=== PATIENT | female | born 1985 | race Caucasian/White ===

== ENCOUNTER 2017-10-07 18:08 | Emergency (ER) | payer BC, MEDICAID ==
[2017-10-07 18:20] VITALS: PULSE 82; RESP 18
[2017-10-07] MEDS ORDERED: SODIUM CHLORIDE 0.9% 1,000 ML IV ONE (18:27)
--- NOTE | 2017-10-07 18:38 | ED ---
General Adult HPI - General Chief complaint: Overdose Stated complaint: accidental injection Time Seen by Provider: 10/07/17 18:09 Source: patient, EMS, RN notes reviewed Mode of arrival: EMS Limitations: no limitations - History of Present Illness Initial comments: This a 32-year-old female presents emergency Department with a complaint of accidental injection. 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 Patient states that she has a makeshift sharps box and states that she accidentally poked herself and she believes that it was hydromorphone. Patient states that immediately after poking her right home she started feeling very dizzy, lightheaded. She states that she try to inject her right hand with Narcan that she has. She states that she has all her reversal agents at home. Patient states she is up-to-date on her tetanus. 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 Patient states that she was given Narcan by EMS states that she feels much better. She denies any chest pain, shortness breath, headache or dizziness - Related Data Home Medications Medication Instructions Recorded Confirmed Citalopram Hydrobromide [CeleXA] 40 mg PO DAILY 10/06/14 11/12/15 clonazePAM [KlonoPIN] 1 mg PO BID 10/06/14 11/12/15 traZODone HCL [Desyrel] 100 mg PO DAILY 10/06/14 11/12/15 Prazosin [Minipress] 2 mg PO DAILY 11/12/15 11/12/15 Previous Rx's Medication Instructions Recorded Acetaminophen with Codeine 1 each PO Q4H PRN #20 tab 11/12/15 [Tylenol w/codeine #3] Amoxicillin/Potassium Clav 1 each PO Q12HR #20 tab 11/12/15 [Augmentin 875-125 Tablet] Allergies Allergy/AdvReac Type Severity Reaction Status Date / Time Sulfa (Sulfonamide Allergy Nausea & Verified 10/07/17 18:14 Antibiotics) Vomiting & Diarrhea Review of Systems ROS Statement: Those systems with pertinent positive or pertinent negative responses have been documented in the HPI. ROS Other: All systems not noted in ROS Statement are negative. Past Medical History Past Medical History: No Reported History History of Any Multi-Drug Resistant Organisms: None Reported Additional Past Surgical History / Comment(s): wisdom tooth extraction, dental surgeries Past Psychological History: PTSD Smoking Status: Never smoker Past Alcohol Use History: None Reported Past Drug Use History: None Reported General Exam Limitations: no limitations General appearance: alert, in no apparent distress Head exam: Present: atraumatic, normocephalic, normal inspection Eye exam: Present: normal appearance, PERRL, EOMI. Absent: scleral icterus, conjunctival injection, periorbital swelling ENT exam: Present: normal exam, mucous membranes moist Neck exam: Present: normal inspection, full ROM. Absent: tenderness, meningismus, lymphadenopathy Respiratory exam: Present: normal lung sounds bilaterally. Absent: respiratory distress, wheezes, rales, rhonchi, stridor Cardiovascular Exam: Present: regular rate, normal rhythm, normal heart sounds. Absent: systolic murmur, diastolic murmur, rubs, gallop, clicks Extremities exam: Present: other (Tract andersen noted on the right hand) Skin exam: Present: warm, dry, intact, normal color. Absent: rash Course Vital Signs 10/07/17 18:14 Temperature 98.7 F Pulse Rate 82 Respiratory 18 Rate Blood Pressure 124/68 O2 Sat by Pulse 100 Oximetry Medical Decision Making - Medical Decision Making 32-year-old female presented emergency department for axonal injection. This most likely was hydromorphones as she responded to Narcan. Patient normally uses hydromorphone within last 24 hours or worse. As concerns for opiate use that she has track andersen. Patient has been stable labwork reviewed is unremarkable. Patient will be discharged at this time. - Lab Data Result diagrams: 10/07/17 18:40 10/07/17 18:40 Lab Results 10/07/17 10/07/17 10/07/17 Range/Units 18:40 18:40 18:40 WBC 6.0 (3.8-10.6) k/uL RBC 4.28 (3.80-5.40) m/uL Hgb 12.7 (11.4-16.0) gm/dL Hct 36.0 (34.0-46.0) % MCV 84.2 (80.0-100.0) fL MCH 29.7 (25.0-35.0) pg MCHC 35.3 (31.0-37.0) g/dL RDW 12.1 (11.5-15.5) % Plt Count 277 (150-450) k/uL Neutrophils % 70 % Lymphocytes % 18 % Monocytes % 8 % Eosinophils % 1 % Basophils % 0 % Neutrophils # 4.2 (1.3-7.7) k/uL Lymphocytes # 1.1 (1.0-4.8) k/uL Monocytes # 0.5 (0-1.0) k/uL Eosinophils # 0.1 (0-0.7) k/uL Basophils # 0.0 (0-0.2) k/uL Sodium 139 (137-145) mmol/L Potassium 3.6 (3.5-5.1) mmol/L Chloride 99 (98-107) mmol/L Carbon Dioxide 27 (22-30) mmol/L Anion Gap 13 mmol/L BUN 12 (7-17) mg/dL Creatinine 0.47 L (0.52-1.04) mg/dL Est GFR (CKD-EPI)AfAm >90 (>60 ml/min/1.73 sqM) Est GFR (CKD-EPI)NonAf >90 (>60 ml/min/1.73 sqM) Glucose 97 (74-99) mg/dL Calcium 9.3 (8.4-10.2) mg/dL Total Bilirubin 0.5 (0.2-1.3) mg/dL AST 27 (14-36) U/L ALT 35 (9-52) U/L Alkaline Phosphatase 45 (38-126) U/L Total Protein 7.2 (6.3-8.2) g/dL Albumin 4.4 (3.5-5.0) g/dL Urine Color Yellow Urine Appearance Cloudy H (Clear) Urine pH 7.0 (5.0-8.0) Ur Specific Reading 1.012 (1.001-1.035) Urine Protein Negative (Negative) Urine Glucose (UA) Negative (Negative) Urine Ketones Negative (Negative) Urine Blood Small H (Negative) Urine Nitrite Negative (Negative) Urine Bilirubin Negative (Negative) Urine Urobilinogen 3.0 (<2.0) mg/dL Ur Leukocyte Esterase Small H (Negative) Urine RBC 3 (0-5) /hpf Urine WBC 4 (0-5) /hpf Ur Squamous Epith Cells 7 H (0-4) /hpf Urine Bacteria Moderate H (None) /hpf Urine HCG, Qual (Not Detectd) Urine Opiates Screen Detected H (NotDetected) Ur Oxycodone Screen Not Detected (NotDetected) Urine Methadone Screen Not Detected (NotDetected) Ur Propoxyphene Screen Not Detected (NotDetected) Ur Barbiturates Screen Not Detected (NotDetected) U Tricyclic Antidepress Not Detected (NotDetected) Ur Phencyclidine Scrn Not Detected (NotDetected) Ur Amphetamines Screen Not Detected (NotDetected) U Methamphetamines Scrn Not Detected (NotDetected) U Benzodiazepines Scrn Not Detected (NotDetected) Urine Cocaine Screen Not Detected (NotDetected) U Marijuana (THC) Screen Not Detected (NotDetected) 10/07/17 Range/Units 18:40 WBC (3.8-10.6) k/uL RBC (3.80-5.40) m/uL Hgb (11.4-16.0) gm/dL Hct (34.0-46.0) % MCV (80.0-100.0) fL MCH (25.0-35.0) pg MCHC (31.0-37.0) g/dL RDW (11.5-15.5) % Plt Count (150-450) k/uL Neutrophils % % Lymphocytes % % Monocytes % % Eosinophils % % Basophils % % Neutrophils # (1.3-7.7) k/uL Lymphocytes # (1.0-4.8) k/uL Monocytes # (0-1.0) k/uL Eosinophils # (0-0.7) k/uL Basophils # (0-0.2) k/uL Sodium (137-145) mmol/L Potassium (3.5-5.1) mmol/L Chloride (98-107) mmol/L Carbon Dioxide (22-30) mmol/L Anion Gap mmol/L BUN (7-17) mg/dL Creatinine (0.52-1.04) mg/dL Est GFR (CKD-EPI)AfAm (>60 ml/min/1.73 sqM) Est GFR (CKD-EPI)NonAf (>60 ml/min/1.73 sqM) Glucose (74-99) mg/dL Calcium (8.4-10.2) mg/dL Total Bilirubin (0.2-1.3) mg/dL AST (14-36) U/L ALT (9-52) U/L Alkaline Phosphatase (38-126) U/L Total Protein (6.3-8.2) g/dL Albumin (3.5-5.0) g/dL Urine Color Urine Appearance (Clear) Urine pH (5.0-8.0) Ur Specific Reading (1.001-1.035) Urine Protein (Negative) Urine Glucose (UA) (Negative) Urine Ketones (Negative) Urine Blood (Negative) Urine Nitrite (Negative) Urine Bilirubin (Negative) Urine Urobilinogen (<2.0) mg/dL Ur Leukocyte Esterase (Negative) Urine RBC (0-5) /hpf Urine WBC (0-5) /hpf Ur Squamous Epith Cells (0-4) /hpf Urine Bacteria (None) /hpf Urine HCG, Qual Not Detected (Not Detectd) Urine Opiates Screen (NotDetected) Ur Oxycodone Screen (NotDetected) Urine Methadone Screen (NotDetected) Ur Propoxyphene Screen (NotDetected) Ur Barbiturates Screen (NotDetected) U Tricyclic Antidepress (NotDetected) Ur Phencyclidine Scrn (NotDetected) Ur Amphetamines Screen (NotDetected) U Methamphetamines Scrn (NotDetected) U Benzodiazepines Scrn (NotDetected) Urine Cocaine Screen (NotDetected) U Marijuana (THC) Screen (NotDetected) Disposition Clinical Impression: Accidental drug overdose, Needlestick injury accident Disposition: HOME SELF-CARE Condition: Stable Instructions: Opioid Overdose (ED) Additional Instructions: Please return to the Emergency Department if symptoms worsen or any other concerns. Referrals: Meeta Vizcarra MD [Primary Care Provider] - 1-2 days Time of Disposition: 19:28
[2017-10-07 18:49] LABS: Basophils % (A) 0 %; Eosinophils # (A) 0.1 k/uL (0-0.7); Eosinophils % (A) 1 %; HGB 12.7 gm/dL (11.4-16.0); Lymphocytes # (A) 1.1 k/uL (1.0-4.8); Lymphocytes % (A) 18 %; MCH 29.7 pg (25.0-35.0); MCHC 35.3 g/dL (31.0-37.0); MCV 84.2 fL (80.0-100.0); Mean Platelet Volume 6.7; Monocytes # (A) 0.5 k/uL (0-1.0); Monocytes % (A) 8 %; Neutrophils # (A) 4.2 k/uL (1.3-7.7); Neutrophils % (A) 70 %; Platelet Count 277 k/uL (150-450); RBC 4.28 m/uL (3.80-5.40); RDW 12.1 % (11.5-15.5)
[2017-10-07 18:54] LABS: Appearance,Urine Cloudy (Clear); Bacteria,Urine Moderate /hpf; Bilirubin,Urine Negative (Negative); Blood,Urine Small (Negative); Color,Urine Yellow; Glucose,Urine (UA) Negative (Negative); Ketones,Urine Negative (Negative); Leukocyte Esterase,Urine Small (Negative); Nitrite,Urine Negative (Negative); Protein,Urine Negative (Negative); RBC,Urine 3 /hpf (0-5); Specific Gravity,Urine 1.012 (1.001-1.035); Squamous Epithelial Cell,Urine 7 /hpf (0-4); WBC,Urine 4 /hpf (0-5)
[2017-10-07 19:06] LABS: ALT 35 U/L (9-52); AST 27 U/L (14-36); Albumin 4.4 g/dL (3.5-5.0); Alkaline Phosphatase 45 U/L (38-126); Anion Gap 13 mmol/L; Blood Urea Nitrogen 12 mg/dL (7-17); Calcium 9.3 mg/dL (8.4-10.2); Carbon Dioxide 27 mmol/L (22-30); Chloride 99 mmol/L (98-107); Glucose 97 mg/dL (74-99); Potassium 3.6 mmol/L (3.5-5.1); Sodium 139 mmol/L (137-145); Total Bilirubin 0.5 mg/dL (0.2-1.3); Total Protein 7.2 g/dL (6.3-8.2)
[2017-10-07 19:11] LABS: Amphetamine Screen,Urine Not Detected (NotDetected); Barbiturate Screen,Urine Not Detected (NotDetected); Benzodiazepines Screen,Urine Not Detected (NotDetected); Cocaine Screen,Urine Not Detected (NotDetected); Methadone Screen, Urine Not Detected (NotDetected); Opiate Screen,Urine Detected (NotDetected); Oxycodone Screen, Urine Not Detected (NotDetected); Phencyclidine Screen,Urine Not Detected (NotDetected); Tricyclic Antidepressant,Urine Not Detected (NotDetected); Urn Cannabinoid Scrn Not Detected (NotDetected)
[2017-10-07 19:46] VITALS: BP 120/62; TEMP 98.4
== END 2017-10-07 19:47 | disposition home or self-care (01) ==
LOC: EC 18:08
DX: T50.991A Poisoning by other drugs, medicaments and biological substances, accidental (unintentional), initial encounter (principal); F43.10 Post-traumatic stress disorder, unspecified; Z79.899 Other long term (current) drug therapy; Z88.2 Allergy status to sulfonamides; W46.0XXA Contact with hypodermic needle, initial encounter
CPT/HCPCS: 36415; 80053; 80306; 81001; 81025; 85025; 96360; 99284

== ENCOUNTER → 2020-10-15 | Outpatient (CLI) | payer MEDICAID ==
--- NOTE | 2020-10-17 17:10 | XR ---
EXAMINATION TYPE: XR shoulder complete RT DATE OF EXAM: 10/15/2020 Comparison: None Clinical History: 35-year-old female [id number] RT shoulder PAIN Findings: AC joint appears intact. Subacromial space is preserved. Smooth delineation of the greater tuberosity . No tendinous or bursal calcifications. No acute fracture, subluxation, or dislocation. Impression: No acute osseous abnormality seen.
== END | disposition home or self-care (01) ==
LOC: RADXRYALE 11:14
PROVIDERS: ATTEND Internal Medicine
DX: M25.511 Pain in right shoulder (principal)

== ENCOUNTER 2022-02-08 22:22 | Inpatient (IN) | payer MEDICAID, OTHER ==
[2022-02-08] MEDS ORDERED: SODIUM CHLORIDE 0.9% 1,000 ML IV STA (22:28)
[2022-02-08] MEDS ORDERED: VANCOMYCIN IV PER PHARMACY 1 EACH MISC MISCELLANE PRN (22:29)
--- NOTE | 2022-02-08 22:30 | ED ---
Altered Mental Status HPI - General Stated Complaint: Altered Mental Status Time Seen by Provider: 02/08/22 22:25 Source: RN notes reviewed, old records reviewed Mode of arrival: EMS Limitations: altered mental status, physical limitation - History of Present Illness Initial Comments: This is a 36-year-old female poor story presents with altered mental status and fever MD Complaint: altered mental status, confusion, decreased responsiveness, intoxication -: unknown Severity: severe Consistency of Symptoms: getting worse Associated Symptoms: denies other symptoms Treatments Prior to Arrival: glucose - Related Data Home Medications Medication Instructions Recorded Confirmed Potassium Chloride ER [K-Dur 20] See Taper PO DAILY 02/09/22 02/09/22 Allergies Allergy/AdvReac Type Severity Reaction Status Date / Time lactose AdvReac Nausea & Verified 02/09/22 08:45 Vomiting & Diarrhea Sulfa (Sulfonamide AdvReac Nausea & Verified 02/09/22 08:44 Antibiotics) Vomiting & Diarrhea Review of Systems ROS Statement: Those systems with pertinent positive or pertinent negative responses have been documented in the HPI. ROS Other: All systems not noted in ROS Statement are negative. Past Medical History Past Medical History: No Reported History History of Any Multi-Drug Resistant Organisms: None Reported Additional Past Surgical History / Comment(s): wisdom tooth extraction, dental surgeries Past Psychological History: PTSD Past Alcohol Use History: None Reported Past Drug Use History: None Reported - Past Family History Father Family Medical History: No Reported History Mother Family Medical History: No Reported History Additional Family Medical History / Comment(s): Mother has history of bipolar General Exam General appearance: alert, in no apparent distress Head exam: Present: atraumatic, normocephalic, normal inspection Eye exam: Present: normal appearance, PERRL, EOMI. Absent: scleral icterus, conjunctival injection, periorbital swelling ENT exam: Present: normal exam, mucous membranes moist Neck exam: Present: normal inspection. Absent: tenderness, meningismus, lymphadenopathy Respiratory exam: Present: normal lung sounds bilaterally. Absent: respiratory distress, wheezes, rales, rhonchi, stridor Cardiovascular Exam: Present: normal rhythm, tachycardia, normal heart sounds. Absent: systolic murmur, diastolic murmur, rubs, gallop, clicks GI/Abdominal exam: Present: soft, normal bowel sounds. Absent: distended, tenderness, guarding, rebound, rigid Extremities exam: Present: normal inspection, full ROM, normal capillary refill. Absent: tenderness, pedal edema, joint swelling, calf tenderness Back exam: Present: normal inspection Neurological exam: Present: alert, oriented X3, CN II-XII intact Psychiatric exam: Present: normal affect, normal mood Skin exam: Present: warm, dry, intact, normal color. Absent: rash Course Vital Signs 02/08/22 02/08/22 02/08/22 22:23 23:01 23:10 Temperature 103 F H Pulse Rate 111 H 111 H 101 H Respiratory 16 43 H 53 H Rate Blood Pressure 139/79 177/56 177/56 O2 Sat by Pulse 92 L 90 L 83 L Oximetry Fraction of Inspired Oxygen (FIO2) 02/08/22 02/08/22 02/08/22 23:20 23:30 23:36 Temperature Pulse Rate 111 H 105 H Respiratory 6 L 26 H Rate Blood Pressure 156/68 154/89 O2 Sat by Pulse 100 100 Oximetry Fraction of 100 Inspired Oxygen (FIO2) 02/08/22 02/08/22 02/08/22 23:40 23:50 23:52 Temperature Pulse Rate 98 94 Respiratory 22 25 H Rate Blood Pressure 154/89 154/89 143/68 O2 Sat by Pulse 100 100 Oximetry Fraction of Inspired Oxygen (FIO2) 02/09/22 02/09/22 02/09/22 00:00 00:10 00:20 Temperature Pulse Rate 86 81 Respiratory 29 H 36 H Rate Blood Pressure 144/93 115/50 115/50 O2 Sat by Pulse 100 100 Oximetry Fraction of Inspired Oxygen (FIO2) 02/09/22 02/09/22 02/09/22 00:30 00:40 00:46 Temperature Pulse Rate 79 78 Respiratory 36 H 35 H Rate Blood Pressure 115/50 113/41 O2 Sat by Pulse 100 100 Oximetry Fraction of 50 Inspired Oxygen (FIO2) 02/09/22 02/09/22 02/09/22 00:50 01:00 01:10 Temperature Pulse Rate 75 73 74 Respiratory 28 H 19 17 Rate Blood Pressure 104/46 101/46 105/48 O2 Sat by Pulse 99 99 100 Oximetry Fraction of Inspired Oxygen (FIO2) 02/09/22 02/09/22 02/09/22 01:20 01:30 01:40 Temperature Pulse Rate 73 74 75 Respiratory 18 6 L 11 L Rate Blood Pressure 106/50 105/52 104/52 O2 Sat by Pulse 100 100 100 Oximetry Fraction of Inspired Oxygen (FIO2) 02/09/22 02/09/22 02/09/22 01:50 02:00 02:10 Temperature Pulse Rate 73 73 73 Respiratory 26 H 32 H 19 Rate Blood Pressure 106/53 107/53 108/52 O2 Sat by Pulse 100 100 100 Oximetry Fraction of Inspired Oxygen (FIO2) 02/09/22 02/09/22 02/09/22 02:20 02:30 02:40 Temperature 97.6 F Pulse Rate 72 73 73 Respiratory 20 21 23 Rate Blood Pressure 107/55 109/52 110/55 O2 Sat by Pulse 100 100 100 Oximetry Fraction of Inspired Oxygen (FIO2) 02/09/22 02/09/22 02/09/22 02:50 03:00 03:10 Temperature Pulse Rate 80 72 70 Respiratory 16 0 L 0 L Rate Blood Pressure 117/69 113/51 110/51 O2 Sat by Pulse 100 100 100 Oximetry Fraction of Inspired Oxygen (FIO2) 02/09/22 02/09/22 02/09/22 03:20 03:30 03:40 Temperature Pulse Rate 70 73 Respiratory 0 L 0 L Rate Blood Pressure 109/50 110/52 110/52 O2 Sat by Pulse 100 100 Oximetry Fraction of Inspired Oxygen (FIO2) - Reevaluation(s) Reevaluation #1: Medical record is reviewed Patient feels improved here in the emergency department Patient feels comfortable for discharge Medical Decision Making - Medical Decision Making 36 female known to likely endocarditis known bacteremia presents with fever and altered mental status. Patient be admitted to the ICU - Lab Data Result diagrams: 02/20/22 04:10 02/20/22 04:10 Lab Results 02/08/22 02/08/22 02/08/22 Range/Units 22:45 22:45 22:45 WBC 8.7 (3.8-10.6) k/uL RBC 3.31 L (3.80-5.40) m/uL Hgb 6.9 L* (11.4-16.0) gm/dL Hct 22.4 L (34.0-46.0) % MCV 67.9 L (80.0-100.0) fL MCH 20.9 L (25.0-35.0) pg MCHC 30.7 L (31.0-37.0) g/dL RDW 20.7 H (11.5-15.5) % Plt Count 140 L (150-450) k/uL MPV 7.0 Neutrophils % 95 % Lymphocytes % 3 % Monocytes % 2 % Eosinophils % 0 % Basophils % 0 % Neutrophils # 8.2 H (1.3-7.7) k/uL Lymphocytes # 0.2 L (1.0-4.8) k/uL Monocytes # 0.2 (0-1.0) k/uL Eosinophils # 0.0 (0-0.7) k/uL Basophils # 0.0 (0-0.2) k/uL Hypochromasia Marked Anisocytosis Moderate Microcytosis Marked ESR 90 H (0-20) mm/hr PT (9.0-12.0) sec INR (<1.2) APTT (22.0-30.0) sec ABG pH (7.35-7.45) ABG pCO2 (35-45) mmHg ABG pO2 (83-108) mmHg ABG HCO3 (21-25) mmol/L ABG Total CO2 (19-24) mmol/L ABG O2 Saturation (94-97) % ABG Base Excess mmol/L Vish Test Sodium 132 L (137-145) mmol/L Potassium 3.2 L (3.5-5.1) mmol/L Chloride 97 L (98-107) mmol/L Carbon Dioxide 23 (22-30) mmol/L Anion Gap 12 mmol/L BUN 20 H (7-17) mg/dL Creatinine 1.02 (0.52-1.04) mg/dL Est GFR (CKD-EPI)AfAm 82 (>60 ml/min/1.73 sqM) Est GFR (CKD-EPI)NonAf 71 (>60 ml/min/1.73 sqM) Glucose 197 H (74-99) mg/dL POC Glucose (mg/dL) (70-110) mg/dL POC Glu Metal Window Frame Maker ID Plasma Lactic Acid Adeel (0.7-2.0) mmol/L Calcium 7.1 L (8.4-10.2) mg/dL Phosphorus 3.8 (2.5-4.5) mg/dL Magnesium 1.2 L (1.6-2.3) mg/dL Total Bilirubin 0.6 (0.2-1.3) mg/dL AST 24 (14-36) U/L ALT 14 (4-34) U/L Alkaline Phosphatase 38 (38-126) U/L Troponin I 0.379 H* (0.000-0.034) ng/mL C-Reactive Protein 8.9 H (<1.0) mg/dL NT-Pro-B Natriuret Pep pg/mL Total Protein 5.9 L (6.3-8.2) g/dL Albumin 2.5 L (3.5-5.0) g/dL Urine Color Urine Appearance (Clear) Urine pH (5.0-8.0) Ur Specific [place] (1.001-1.035) Urine Protein (Negative) Urine Glucose (UA) (Negative) Urine Ketones (Negative) Urine Blood (Negative) Urine Nitrite (Negative) Urine Bilirubin (Negative) Urine Urobilinogen (<2.0) mg/dL Ur Leukocyte Esterase (Negative) Urine RBC (0-5) /hpf Urine WBC (0-5) /hpf Ur Squamous Epith Cells (0-4) /hpf Amorphous Sediment (None) /hpf Urine Bacteria (None) /hpf Hyaline Casts (0-2) /lpf Urine Mucus (None) /hpf Urine HCG, Qual (Not Detectd) Urine Opiates Screen (NotDetected) Ur Oxycodone Screen (NotDetected) Urine Methadone Screen (NotDetected) Ur Propoxyphene Screen (NotDetected) Ur Barbiturates Screen (NotDetected) U Tricyclic Antidepress (NotDetected) Ur Phencyclidine Scrn (NotDetected) Ur Amphetamines Screen (NotDetected) U Methamphetamines Scrn (NotDetected) U Benzodiazepines Scrn (NotDetected) Urine Cocaine Screen (NotDetected) U Marijuana (THC) Screen (NotDetected) Blood Type Blood Type Confirm Blood Type Recheck Bld Type Recheck Status Antibody Screen Crossmatch Spec Expiration Date 02/08/22 02/08/22 02/08/22 Range/Units 22:45 23:07 23:50 WBC (3.8-10.6) k/uL RBC (3.80-5.40) m/uL Hgb (11.4-16.0) gm/dL Hct (34.0-46.0) % MCV (80.0-100.0) fL MCH (25.0-35.0) pg MCHC (31.0-37.0) g/dL RDW (11.5-15.5) % Plt Count (150-450) k/uL MPV Neutrophils % % Lymphocytes % % Monocytes % % Eosinophils % % Basophils % % Neutrophils # (1.3-7.7) k/uL Lymphocytes # (1.0-4.8) k/uL Monocytes # (0-1.0) k/uL Eosinophils # (0-0.7) k/uL Basophils # (0-0.2) k/uL Hypochromasia Anisocytosis Microcytosis ESR (0-20) mm/hr PT (9.0-12.0) sec INR (<1.2) APTT (22.0-30.0) sec ABG pH 7.47 H (7.35-7.45) ABG pCO2 37 (35-45) mmHg ABG pO2 386 H (83-108) mmHg ABG HCO3 27 H (21-25) mmol/L ABG Total CO2 28 H (19-24) mmol/L ABG O2 Saturation 100.0 H (94-97) % ABG Base Excess 3.2 mmol/L Vish Test Yes Sodium (137-145) mmol/L Potassium (3.5-5.1) mmol/L Chloride (98-107) mmol/L Carbon Dioxide (22-30) mmol/L Anion Gap mmol/L BUN (7-17) mg/dL Creatinine (0.52-1.04) mg/dL Est GFR (CKD-EPI)AfAm (>60 ml/min/1.73 sqM) Est GFR (CKD-EPI)NonAf (>60 ml/min/1.73 sqM) Glucose (74-99) mg/dL POC Glucose (mg/dL) 203 H (70-110) mg/dL POC Glu Metal Window Frame Maker ID Phuong, [place] Plasma Lactic Acid Adeel (0.7-2.0) mmol/L Calcium (8.4-10.2) mg/dL Phosphorus (2.5-4.5) mg/dL Magnesium (1.6-2.3) mg/dL Total Bilirubin (0.2-1.3) mg/dL AST (14-36) U/L ALT (4-34) U/L Alkaline Phosphatase (38-126) U/L Troponin I (0.000-0.034) ng/mL C-Reactive Protein (<1.0) mg/dL NT-Pro-B Natriuret Pep 87320 pg/mL Total Protein (6.3-8.2) g/dL Albumin (3.5-5.0) g/dL Urine Color Urine Appearance (Clear) Urine pH (5.0-8.0) Ur Specific [place] (1.001-1.035) Urine Protein (Negative) Urine Glucose (UA) (Negative) Urine Ketones (Negative) Urine Blood (Negative) Urine Nitrite (Negative) Urine Bilirubin (Negative) Urine Urobilinogen (<2.0) mg/dL Ur Leukocyte Esterase (Negative) Urine RBC (0-5) /hpf Urine WBC (0-5) /hpf Ur Squamous Epith Cells (0-4) /hpf Amorphous Sediment (None) /hpf Urine Bacteria (None) /hpf Hyaline Casts (0-2) /lpf Urine Mucus (None) /hpf Urine HCG, Qual (Not Detectd) Urine Opiates Screen (NotDetected) Ur Oxycodone Screen (NotDetected) Urine Methadone Screen (NotDetected) Ur Propoxyphene Screen (NotDetected) Ur Barbiturates Screen (NotDetected) U Tricyclic Antidepress (NotDetected) Ur Phencyclidine Scrn (NotDetected) Ur Amphetamines Screen (NotDetected) U Methamphetamines Scrn (NotDetected) U Benzodiazepines Scrn (NotDetected) Urine Cocaine Screen (NotDetected) U Marijuana (THC) Screen (NotDetected) Blood Type Blood Type Confirm Blood Type Recheck Bld Type Recheck Status Antibody Screen Crossmatch Spec Expiration Date 02/08/22 02/08/22 02/09/22 Range/Units 23:59 23:59 00:00 WBC (3.8-10.6) k/uL RBC (3.80-5.40) m/uL Hgb (11.4-16.0) gm/dL Hct (34.0-46.0) % MCV (80.0-100.0) fL MCH (25.0-35.0) pg MCHC (31.0-37.0) g/dL RDW (11.5-15.5) % Plt Count (150-450) k/uL MPV Neutrophils % % Lymphocytes % % Monocytes % % Eosinophils % % Basophils % % Neutrophils # (1.3-7.7) k/uL Lymphocytes # (1.0-4.8) k/uL Monocytes # (0-1.0) k/uL Eosinophils # (0-0.7) k/uL Basophils # (0-0.2) k/uL Hypochromasia Anisocytosis Microcytosis ESR (0-20) mm/hr PT 12.8 H (9.0-12.0) sec INR 1.2 H (<1.2) APTT 24.1 (22.0-30.0) sec ABG pH (7.35-7.45) ABG pCO2 (35-45) mmHg ABG pO2 (83-108) mmHg ABG HCO3 (21-25) mmol/L ABG Total CO2 (19-24) mmol/L ABG O2 Saturation (94-97) % ABG Base Excess mmol/L Vish Test Sodium (137-145) mmol/L Potassium (3.5-5.1) mmol/L Chloride (98-107) mmol/L Carbon Dioxide (22-30) mmol/L Anion Gap mmol/L BUN (7-17) mg/dL Creatinine (0.52-1.04) mg/dL Est GFR (CKD-EPI)AfAm (>60 ml/min/1.73 sqM) Est GFR (CKD-EPI)NonAf (>60 ml/min/1.73 sqM) Glucose (74-99) mg/dL POC Glucose (mg/dL) (70-110) mg/dL POC Glu Metal Window Frame Maker ID Plasma Lactic Acid Adeel 1.6 (0.7-2.0) mmol/L Calcium (8.4-10.2) mg/dL Phosphorus (2.5-4.5) mg/dL Magnesium (1.6-2.3) mg/dL Total Bilirubin (0.2-1.3) mg/dL AST (14-36) U/L ALT (4-34) U/L Alkaline Phosphatase (38-126) U/L Troponin I (0.000-0.034) ng/mL C-Reactive Protein (<1.0) mg/dL NT-Pro-B Natriuret Pep pg/mL Total Protein (6.3-8.2) g/dL Albumin (3.5-5.0) g/dL Urine Color Light Red Urine Appearance Cloudy H (Clear) Urine pH 6.0 (5.0-8.0) Ur Specific [place] 1.013 (1.001-1.035) Urine Protein 3+ H (Negative) Urine Glucose (UA) Negative (Negative) Urine Ketones Negative (Negative) Urine Blood Large H (Negative) Urine Nitrite Negative (Negative) Urine Bilirubin Negative (Negative) Urine Urobilinogen <2.0 (<2.0) mg/dL Ur Leukocyte Esterase Small H (Negative) Urine RBC 127 H (0-5) /hpf Urine WBC 27 H (0-5) /hpf Ur Squamous Epith Cells <1 (0-4) /hpf Amorphous Sediment Moderate H (None) /hpf Urine Bacteria Moderate H (None) /hpf Hyaline Casts 15 H (0-2) /lpf Urine Mucus Rare H (None) /hpf Urine HCG, Qual (Not Detectd) Urine Opiates Screen Detected H (NotDetected) Ur Oxycodone Screen Not Detected (NotDetected) Urine Methadone Screen Not Detected (NotDetected) Ur Propoxyphene Screen Not Detected (NotDetected) Ur Barbiturates Screen Not Detected (NotDetected) U Tricyclic Antidepress Not Detected (NotDetected) Ur Phencyclidine Scrn Not Detected (NotDetected) Ur Amphetamines Screen Not Detected (NotDetected) U Methamphetamines Scrn Not Detected (NotDetected) U Benzodiazepines Scrn Not Detected (NotDetected) Urine Cocaine Screen Not Detected (NotDetected) U Marijuana (THC) Screen Not Detected (NotDetected) Blood Type Blood Type Confirm Blood Type Recheck Bld Type Recheck Status Antibody Screen Crossmatch Spec Expiration Date 02/09/22 02/09/22 02/09/22 Range/Units 00:00 00:13 01:53 WBC (3.8-10.6) k/uL RBC (3.80-5.40) m/uL Hgb (11.4-16.0) gm/dL Hct (34.0-46.0) % MCV (80.0-100.0) fL MCH (25.0-35.0) pg MCHC (31.0-37.0) g/dL RDW (11.5-15.5) % Plt Count (150-450) k/uL MPV Neutrophils % % Lymphocytes % % Monocytes % % Eosinophils % % Basophils % % Neutrophils # (1.3-7.7) k/uL Lymphocytes # (1.0-4.8) k/uL Monocytes # (0-1.0) k/uL Eosinophils # (0-0.7) k/uL Basophils # (0-0.2) k/uL Hypochromasia Anisocytosis Microcytosis ESR (0-20) mm/hr PT (9.0-12.0) sec INR (<1.2) APTT (22.0-30.0) sec ABG pH (7.35-7.45) ABG pCO2 (35-45) mmHg ABG pO2 (83-108) mmHg ABG HCO3 (21-25) mmol/L ABG Total CO2 (19-24) mmol/L ABG O2 Saturation (94-97) % ABG Base Excess mmol/L Vish Test Sodium (137-145) mmol/L Potassium (3.5-5.1) mmol/L Chloride (98-107) mmol/L Carbon Dioxide (22-30) mmol/L Anion Gap mmol/L BUN (7-17) mg/dL Creatinine (0.52-1.04) mg/dL Est GFR (CKD-EPI)AfAm (>60 ml/min/1.73 sqM) Est GFR (CKD-EPI)NonAf (>60 ml/min/1.73 sqM) Glucose (74-99) mg/dL POC Glucose (mg/dL) (70-110) mg/dL POC Glu Metal Window Frame Maker ID Plasma Lactic Acid Adeel (0.7-2.0) mmol/L Calcium (8.4-10.2) mg/dL Phosphorus (2.5-4.5) mg/dL Magnesium (1.6-2.3) mg/dL Total Bilirubin (0.2-1.3) mg/dL AST (14-36) U/L ALT (4-34) U/L Alkaline Phosphatase (38-126) U/L Troponin I (0.000-0.034) ng/mL C-Reactive Protein (<1.0) mg/dL NT-Pro-B Natriuret Pep pg/mL Total Protein (6.3-8.2) g/dL Albumin (3.5-5.0) g/dL Urine Color Urine Appearance (Clear) Urine pH (5.0-8.0) Ur Specific [place] (1.001-1.035) Urine Protein (Negative) Urine Glucose (UA) (Negative) Urine Ketones (Negative) Urine Blood (Negative) Urine Nitrite (Negative) Urine Bilirubin (Negative) Urine Urobilinogen (<2.0) mg/dL Ur Leukocyte Esterase (Negative) Urine RBC (0-5) /hpf Urine WBC (0-5) /hpf Ur Squamous Epith Cells (0-4) /hpf Amorphous Sediment (None) /hpf Urine Bacteria (None) /hpf Hyaline Casts (0-2) /lpf Urine Mucus (None) /hpf Urine HCG, Qual Not Detected (Not Detectd) Urine Opiates Screen (NotDetected) Ur Oxycodone Screen (NotDetected) Urine Methadone Screen (NotDetected) Ur Propoxyphene Screen (NotDetected) Ur Barbiturates Screen (NotDetected) U Tricyclic Antidepress (NotDetected) Ur Phencyclidine Scrn (NotDetected) Ur Amphetamines Screen (NotDetected) U Methamphetamines Scrn (NotDetected) U Benzodiazepines Scrn (NotDetected) Urine Cocaine Screen (NotDetected) U Marijuana (THC) Screen (NotDetected) Blood Type B Positive Blood Type Confirm B Positive Blood Type Recheck No Previous Record Bld Type Recheck Status CABO Indicated Antibody Screen NEGATIVE Crossmatch See Detail Spec Expiration Date 02/12/20222312 - EKG Data -: EKG Interpreted by Me (EKG sinus tachycardia 112. 132 QRS 97 QTC 420) Critical Care Time Critical Care Time: Yes Total Critical Care Time: 31 Disposition Clinical Impression: Sepsis, Bacteremia, Altered mental status, Delirium due to general medical condition Disposition: ADMITTED IP TO THIS HOSP
[2022-02-08] MEDS ORDERED: VANCOMYCIN 1,000 MG in SODIUM CHLORIDE 0.9% 250 ML IVPB STA (22:52)
[2022-02-08] MEDS ORDERED: ACETAMINOPHEN IV (For NPO) 1,000 MG in EMPTY BAG 1 BAG IVPB STA (22:57)
[2022-02-08] MEDS ORDERED: IBUPROFEN IV 800 MG in SODIUM CHLORIDE 0.9% 250 ML IV ONE (22:57)
--- NOTE | 2022-02-08 23:01 | XR ---
EXAMINATION TYPE: XR chest 1V portable DATE OF EXAM: 02/08/2022 COMPARISON: NONE HISTORY: Chest TECHNIQUE: Single view FINDINGS: There is some pulmonary interstitial and airspace edema. Heart is enlarged. No significant pleural fluid seen. Mediastinum is normal. There are chest leads. IMPRESSION: There is pulmonary edema that could be acute heart failure or RDS.
[2022-02-08 23:19] LABS: Glucose,Whole Blood 203 mg/dL (70-110)
[2022-02-08 23:19] LABS: Anisocytosis Moderate; Basophils % (A) 0 %; Eosinophils % (A) 0 %; HCT 22.4 % (34.0-46.0); Hypochromasia Marked; Lymphocytes # (A) 0.2 k/uL (1.0-4.8); Lymphocytes % (A) 3 %; MCH 20.9 pg (25.0-35.0); MCHC 30.7 g/dL (31.0-37.0); MCV 67.9 fL (80.0-100.0); Microcytosis Marked; Monocytes # (A) 0.2 k/uL (0-1.0); Monocytes % (A) 2 %; Neutrophils # (A) 8.2 k/uL (1.3-7.7); Neutrophils % (A) 95 %; Platelet Count 140 k/uL (150-450); RBC 3.31 m/uL (3.80-5.40); RDW 20.7 % (11.5-15.5); WBC 8.7 k/uL (3.8-10.6)
[2022-02-08 23:31] LABS: INR 1.2 (<1.2); Partial Thromboplastin Time 24.1 sec (22.0-30.0); Prothrombin Time 12.8 sec (9.0-12.0)
[2022-02-08] MEDS ORDERED: KETAMINE 10 MG/ML 20 ML VIAL IV ONE (23:34)
--- NOTE | 2022-02-08 23:41 | XR ---
EXAMINATION TYPE: XR chest 1V portable DATE OF EXAM: 02/08/2022 COMPARISON: Today HISTORY: Respiratory failure TECHNIQUE: FINDINGS: There is endotracheal tube 7 cm from the awais. Nasogastric tube in the stomach. There is moderate pulmonary interstitial and airspace edema. Heart size is fairly normal. Trachea is midline. There are chest leads. IMPRESSION: Pulmonary edema without much change.
[2022-02-08 23:45] LABS: Albumin 2.5 g/dL (3.5-5.0); Calcium 7.1 mg/dL (8.4-10.2); Magnesium 1.2 mg/dL (1.6-2.3); Phosphorus 3.8 mg/dL (2.5-4.5); Potassium 3.2 mmol/L (3.5-5.1); Total Bilirubin 0.6 mg/dL (0.2-1.3); Total Protein 5.9 g/dL (6.3-8.2)
[2022-02-08] MEDS ORDERED: HYDROmorphone 1 MG/ML 1 ML SYRINGE IVP STA (23:47)
[2022-02-08] MEDS ORDERED: LORazepam 2 MG/ML INJ IV STA (23:47)
[2022-02-09 00:05] LABS: C Reactive Protein 8.9 mg/dL (<1.0)
[2022-02-09 00:06] LABS: HGB 6.9 gm/dL (11.4-16.0)
[2022-02-09 00:08] LABS: Erythrocyte Sedimentation Rate 90 mm/hr (0-20)
[2022-02-09] MEDS ORDERED: MIDAZOLAM 1 MG/ML 5 ML VIAL IV STA (00:29)
[2022-02-09] MEDS ORDERED: SUCCINYLCHOLINE CHLORIDE 200 MG/10 ML VIAL IV STA (00:29)
[2022-02-09] MEDS ORDERED: LORazepam 2 MG/ML INJ IV STA (00:40)
[2022-02-09 00:41] LABS: ABG Base Excess 3.2 mmol/L; ABG HCO3 27 mmol/L (21-25); ABG PCO2 37 mmHg (35-45); ABG PH 7.47 (7.35-7.45); ABG PO2 386 mmHg (83-108); ABG TCO2 28 mmol/L (19-24); Allen Test Performed? Yes
--- NOTE | 2022-02-09 01:05 | CT ---
EXAMINATION TYPE: CT brain cspine wo con CT scan cervical spine DATE OF EXAM: 02/09/2022 COMPARISON: None HISTORY: AMS CT DLP: 1480.3 mGycm Automated exposure control for dose reduction was used. CT brain and cervical spine performed with no contrast. Ventricles have normal size. There is no mass effect or midline shift. No sign of intracranial hemorr yoel. The calvarium is intact. Skull base is intact. There is normal aeration of the mastoid sinuses. No evidence of cerebral edema. The cervical vertebra have normal spacing and alignment. Posterior elements are intact. No compressio n fracture. Facet joints are intact. Prevertebral soft tissues are intact. Skull base is intact. Ther e is normal aeration of the mastoid sinuses. Internal auditory canals appear normal. IMPRESSION: Normal CT scan of the cervical spine. No fracture. Normal CT scan of the brain. Left superior pubic ramus. There is deformity of the left inferior pubic ramus consistent with an old fracture.
[2022-02-09 01:46] LABS: Amorphous Sediment,Urine Moderate /hpf; Appearance,Urine Cloudy (Clear); Bacteria,Urine Moderate /hpf; Bilirubin,Urine Negative (Negative); Blood,Urine Large (Negative); Color,Urine Light Red; Glucose,Urine (UA) Negative (Negative); Hyaline Casts,Urine 15 /lpf (0-2); Ketones,Urine Negative (Negative); Leukocyte Esterase,Urine Small (Negative); Mucus,Urine Rare /hpf; Nitrite,Urine Negative (Negative); Protein,Urine 3+ (Negative); RBC,Urine 127 /hpf (0-5); Specific Gravity,Urine 1.013 (1.001-1.035); Squamous Epithelial Cell,Urine <1 /hpf (0-4); Urobilinogen,Urine <2.0 mg/dL (<2.0); WBC,Urine 27 /hpf (0-5)
[2022-02-09 02:00] LABS: Amphetamine Screen,Urine Not Detected (NotDetected); Barbiturate Screen,Urine Not Detected (NotDetected); Benzodiazepines Screen,Urine Not Detected (NotDetected); Cocaine Screen,Urine Not Detected (NotDetected); Methadone Screen, Urine Not Detected (NotDetected); Opiate Screen,Urine Detected (NotDetected); Oxycodone Screen, Urine Not Detected (NotDetected); Phencyclidine Screen,Urine Not Detected (NotDetected); Tricyclic Antidepressant,Urine Not Detected (NotDetected); Urn Cannabinoid Scrn Not Detected (NotDetected)
[2022-02-09] MEDS ORDERED: NALOXONE 0.4 MG/ML 1 ML VIAL IV PRN (02:38)
[2022-02-09] MEDS ORDERED: POTASSIUM CHLORIDE 20 MEQ in WATER FOR INJECTION 1 100ML.BAG IVPB STA (02:43)
[2022-02-09] MEDS ORDERED: DEXTROSE 5%-0.45% NACL 1,000 ML IV SCH (02:45)
[2022-02-09 03:48] LABS: Glucose,Whole Blood 156 mg/dL (70-110)
[2022-02-09] MEDS ORDERED: Potassium Replacement Protocol 1 EACH MISC MISCELLANE PRN (04:29)
[2022-02-09] MEDS: MAGNESIUM SULFATE-D5W PMX 1 GM in DEXTROSE/WATER 1 100ML.BAG IVPB SCH ×2 (04:44→06:22)
[2022-02-09] MEDS: POTASSIUM BICARBONATE/CIT AC 20 MEQ TABLET.EFF NG-TUBE SCH ×2 (04:54→06:22)
[2022-02-09 05:40] LABS: ABG Base Excess 0.5 mmol/L; ABG HCO3 25 mmol/L (21-25); ABG PCO2 37 mmHg (35-45); ABG PH 7.44 (7.35-7.45); ABG PO2 159 mmHg (83-108); ABG TCO2 26 mmol/L (19-24); Allen Test Performed? Yes
[2022-02-09 07:52] LABS: Anisocytosis Moderate; Basophils % (A) 0 %; Eosinophils % (A) 0 %; HCT 26.8 % (34.0-46.0); HGB 8.3 gm/dL (11.4-16.0); Hypochromasia Marked; Lymphocytes # (A) 0.3 k/uL (1.0-4.8); Lymphocytes % (A) 4 %; MCH 23.1 pg (25.0-35.0); MCHC 30.9 g/dL (31.0-37.0); Microcytosis Marked; Monocytes # (A) 0.1 k/uL (0-1.0); Monocytes % (A) 2 %; Neutrophils # (A) 6.9 k/uL (1.3-7.7); Neutrophils % (A) 93 %; Platelet Count 135 k/uL (150-450); Poikilocytosis Slight; RBC 3.58 m/uL (3.80-5.40); RDW 22.2 % (11.5-15.5); WBC 7.3 k/uL (3.8-10.6)
[2022-02-09 08:01] LABS: MCV 74.8 fL (80.0-100.0)
[2022-02-09 08:18] LABS: HCG,Qualitative Serum Not Detected
[2022-02-09 08:37] LABS: Potassium 3.6 mmol/L (3.5-5.1)
[2022-02-09 08:39] LABS: African American GFR (CKD) 60 (>60 ml/min/1.73 sqM); Anion Gap 10 mmol/L; Blood Urea Nitrogen 24 mg/dL (7-17); Calcium 6.9 mg/dL (8.4-10.2); Carbon Dioxide 23 mmol/L (22-30); Chloride 100 mmol/L (98-107); Glucose 188 mg/dL (74-99); Non-African American GFR(CKD) 52 (>60 ml/min/1.73 sqM); Potassium 3.6 mmol/L (3.5-5.1); Sodium 133 mmol/L (137-145)
--- NOTE | 2022-02-09 09:40 | XR ---
EXAMINATION TYPE: XR chest 1V portable DATE OF EXAM: 02/09/2022 Comparison: 02/08/2022 Clinical History: 36-year-old female hypoxia Findings: ET tube tip just above the level of the medial clavicular heads. NG tube courses below the diaphragm. Heart upper limits of normal in size. Diffuse interstitial densities remain. Patchy opacity right mi dlung has become less confluent from prior exam. No pleural effusion. Impression: 1. ET tube is high. Tip is just above the medial clavicular heads. Advance by 3 cm and reassess at llow-up. 2. Interstitial changes persist. Airspace disease on the right however is improving, it has become le ss confluent from prior exam.
--- NOTE | 2022-02-09 09:45 | P.HPIM ---
History of Present Illness This is a pleasant 56 years old female with past medical history of anxiety, PTSD, presents with altered mental status. She is a patient of Dr. Vizcarra. Patient was admitted in the ICU from the emergency room, patient could not provi de information which were obtained from medical records and staff. per ems pt was recently at [place] for a blood infection. pt's last known well was last night at 10:30pm. pt found by family this evening altered. Patient was intubated in the emergency room Patient had a fever of 103 on admission, she is tachypneic 29-31, blood pressure 107/53 Labs reviewed on admission, WBC 8.7, low hemoglobin 6.9, low platelet 120, with thrombocytopenia which is mild ESR is elevated at 90, CRP elevated 8.9 PH normal 7.4, pCO2 normal at 37 INR 1.2 Sodium 132, potassium 3.2, creatinine 1.0. Liver enzymes are normal as well as bilirubin. Troponin is elevated at 0.37. ProBNP is elevated to 38,000 Urinalysis showing 3+ protein, large blood, RBC 127, WBC 27. Urine test is negative. Urine drug screen is positive for opioids EKG showing sinus tachycardia at [address]-T changes Chest x-ray: Acute pulmonary edema Computed tomography scan of the head and neck: Normal cervical spine with no fracture and normal CT of the brain by radiologist In the emergency room she received IV fluids with normal saline, vancomycin and ceftriaxone and ibuprofen and IV Tylenol, Dilaudid and lorazepam and succinylcholine Review of Systems ROS unobtainable: due to endotracheal tube Past Medical History Past Medical History: No Reported History Additional Past Medical History / Comment(s): anemia and recent blood infection. Back pain from an accident. History of Any Multi-Drug Resistant Organisms: None Reported Additional Past Surgical History / Comment(s): wisdom tooth extraction, dental surgeries Past Anesthesia/Blood Transfusion Reactions: No Reported Reaction Smoking Status: Never smoker - Past Family History Father Family Medical History: No Reported History Mother Family Medical History: No Reported History Medications and Allergies Home Medications Medication Instructions Recorded Confirmed Type Potassium Chloride ER [K-Dur 20] See Taper PO DAILY 02/09/22 02/09/22 History Allergies Allergy/AdvReac Type Severity Reaction Status Date / Time lactose AdvReac Nausea & Verified 02/09/22 08:45 Vomiting & Diarrhea Sulfa (Sulfonamide AdvReac Nausea & Verified 02/09/22 08:44 Antibiotics) Vomiting & Diarrhea Physical Exam Vitals: Vital Signs Temp Pulse Resp BP Pulse Ox FiO2 02/09/22 06:00 72 29 H 107/53 100 02/09/22 05:44 97.6 F 70 31 H 107/53 100 02/09/22 05:41 40 02/09/22 05:30 97.6 F 69 31 H 106/50 100 40 02/09/22 05:14 97.1 F L 69 29 H 106/50 02/09/22 05:04 97.1 F L 69 29 H 105/49 100 02/09/22 05:00 97.1 F L 68 26 H 104/50 100 02/09/22 04:55 97.1 F L 68 29 H 104/50 100 02/09/22 04:50 67 30 H 104/50 100 02/09/22 04:40 67 76 H 103/50 100 02/09/22 04:30 67 66 H 106/54 100 02/09/22 04:20 68 32 H 106/54 100 02/09/22 04:10 69 20 106/54 100 50 02/09/22 04:00 97.1 F L 68 30 H 106/54 100 40 02/09/22 03:51 100 02/09/22 03:40 110/52 02/09/22 03:30 73 0 L 110/52 100 02/09/22 03:20 70 0 L 109/50 100 02/09/22 03:10 70 0 L 110/51 100 02/09/22 03:00 72 0 L 113/51 100 02/09/22 02:50 80 16 117/69 100 02/09/22 02:40 73 23 110/55 100 02/09/22 02:30 97.6 F 73 21 109/52 100 02/09/22 02:20 72 20 107/55 100 02/09/22 02:10 73 19 108/52 100 02/09/22 02:00 73 32 H 107/53 100 02/09/22 01:50 73 26 H 106/53 100 02/09/22 01:40 75 11 L 104/52 100 02/09/22 01:30 74 6 L 105/52 100 02/09/22 01:20 73 18 106/50 100 02/09/22 01:10 74 17 105/48 100 02/09/22 01:00 73 19 101/46 99 02/09/22 00:50 75 28 H 104/46 99 02/09/22 00:46 50 02/09/22 00:40 78 35 H 113/41 100 02/09/22 00:30 79 36 H 115/50 100 02/09/22 00:20 81 36 H 115/50 100 02/09/22 00:10 86 29 H 115/50 100 02/09/22 00:00 144/93 02/08/22 23:52 94 25 H 143/68 100 02/08/22 23:50 98 22 154/89 100 02/08/22 23:40 154/89 02/08/22 23:36 100 02/08/22 23:30 105 H 26 H 154/89 100 02/08/22 23:29 100 02/08/22 23:20 111 H 6 L 156/68 100 02/08/22 23:10 101 H 53 H 177/56 83 L 02/08/22 23:01 111 H 43 H 177/56 90 L 02/08/22 22:23 103 F H 111 H 16 139/79 92 L Intake and Output 02/08/22 02/08/22 02/09/22 14:59 22:59 06:59 Intake Total 798.361 Output Total 265 Balance 533.361 Intake: IV 400 Dextrose 5%-0.45% NaCl 1, 300 000 ml @ 100 mls/hr IV . Q10H BISHOP Rx#:[id number] Magnesium Sulfate-D5w Pmx 100 1 gm In Dextrose/Water 1 100ml.bag @ 100 mls/hr IVPB Q1H BISHOP Rx#: [id number] Intake, IV Titration 88.361 Amount propofoL 1,000 mg In 50.695 Empty Bag 1 bag @ 10 MCG/ KG/MIN 4.355 mls/hr IV . [id number] BISHOP Rx#:[id number] propofoL 1,000 mg In 37.666 Empty Bag 1 bag @ Titrate IV .Q0M ONE Rx#: [id number] Blood Product 310 Rc As-1 Unit 310 [id number] Rc As-1 Unit 0 [id number] Output: Urine 265 Other: Voiding Method Indwelling Catheter Weight 72.575 kg 75.1 kg -GENERAL: The patient is sedated and intubated HEENT: Pupils are round and equally reacting to light. EOMI. No scleral icterus. No conjunctival pallor. Normocephalic, atraumatic. No pharyngeal erythema. No t hyromegaly. CARDIOVASCULAR: S1 and S2 present. No murmurs, rubs, or gallops. -PULMONARY: Chest is clear to auscultation, no wheezing . Bilateral crackles. ABDOMEN: Soft, nontender, nondistended, normoactive bowel sounds. No palpable organomegaly. MUSCULOSKELETAL: No joint swelling or deformity. EXTREMITIES: No cyanosis, clubbing, or pedal edema. NEUROLOGICAL: Gross neurological examination did not reveal any focal deficits. SKIN: No rashes. no petechiae. Results CBC & Chem 7: 02/09/22 07:27 02/09/22 07:27 Labs: Abnormal Lab Results - Last 24 Hours (Table) 02/08/22 02/08/22 02/08/22 Range/Units 22:45 22:45 22:45 RBC 3.31 L (3.80-5.40) m/uL Hgb 6.9 L* (11.4-16.0) gm/dL Hct 22.4 L (34.0-46.0) % MCV 67.9 L (80.0-100.0) fL MCH 20.9 L (25.0-35.0) pg MCHC 30.7 L (31.0-37.0) g/dL RDW 20.7 H (11.5-15.5) % Plt Count 140 L (150-450) k/uL Neutrophils # 8.2 H (1.3-7.7) k/uL Lymphocytes # 0.2 L (1.0-4.8) k/uL ESR 90 H (0-20) mm/hr PT (9.0-12.0) sec INR (<1.2) ABG pH (7.35-7.45) ABG pO2 (83-108) mmHg ABG HCO3 (21-25) mmol/L ABG Total CO2 (19-24) mmol/L ABG O2 Saturation (94-97) % Sodium 132 L (137-145) mmol/L Potassium 3.2 L (3.5-5.1) mmol/L Chloride 97 L (98-107) mmol/L BUN 20 H (7-17) mg/dL Glucose 197 H (74-99) mg/dL POC Glucose (mg/dL) (70-110) mg/dL Calcium 7.1 L (8.4-10.2) mg/dL Magnesium 1.2 L (1.6-2.3) mg/dL Troponin I 0.379 H* (0.000-0.034) ng/mL C-Reactive Protein 8.9 H (<1.0) mg/dL Total Protein 5.9 L (6.3-8.2) g/dL Albumin 2.5 L (3.5-5.0) g/dL Urine Appearance (Clear) Urine Protein (Negative) Urine Blood (Negative) Ur Leukocyte Esterase (Negative) Urine RBC (0-5) /hpf Urine WBC (0-5) /hpf Amorphous Sediment (None) /hpf Urine Bacteria (None) /hpf Hyaline Casts (0-2) /lpf Urine Mucus (None) /hpf Urine Opiates Screen (NotDetected) Crossmatch 02/08/22 02/08/22 02/08/22 Range/Units 23:07 23:50 23:59 RBC (3.80-5.40) m/uL Hgb (11.4-16.0) gm/dL Hct (34.0-46.0) % MCV (80.0-100.0) fL MCH (25.0-35.0) pg MCHC (31.0-37.0) g/dL RDW (11.5-15.5) % Plt Count (150-450) k/uL Neutrophils # (1.3-7.7) k/uL Lymphocytes # (1.0-4.8) k/uL ESR (0-20) mm/hr PT 12.8 H (9.0-12.0) sec INR 1.2 H (<1.2) ABG pH 7.47 H (7.35-7.45) ABG pO2 386 H (83-108) mmHg ABG HCO3 27 H (21-25) mmol/L ABG Total CO2 28 H (19-24) mmol/L ABG O2 Saturation 100.0 H (94-97) % Sodium (137-145) mmol/L Potassium (3.5-5.1) mmol/L Chloride (98-107) mmol/L BUN (7-17) mg/dL Glucose (74-99) mg/dL POC Glucose (mg/dL) 203 H (70-110) mg/dL Calcium (8.4-10.2) mg/dL Magnesium (1.6-2.3) mg/dL Troponin I (0.000-0.034) ng/mL C-Reactive Protein (<1.0) mg/dL Total Protein (6.3-8.2) g/dL Albumin (3.5-5.0) g/dL Urine Appearance (Clear) Urine Protein (Negative) Urine Blood (Negative) Ur Leukocyte Esterase (Negative) Urine RBC (0-5) /hpf Urine WBC (0-5) /hpf Amorphous Sediment (None) /hpf Urine Bacteria (None) /hpf Hyaline Casts (0-2) /lpf Urine Mucus (None) /hpf Urine Opiates Screen (NotDetected) Crossmatch 02/09/22 02/09/22 02/09/22 Range/Units 00:00 00:13 03:46 RBC (3.80-5.40) m/uL Hgb (11.4-16.0) gm/dL Hct (34.0-46.0) % MCV (80.0-100.0) fL MCH (25.0-35.0) pg MCHC (31.0-37.0) g/dL RDW (11.5-15.5) % Plt Count (150-450) k/uL Neutrophils # (1.3-7.7) k/uL Lymphocytes # (1.0-4.8) k/uL ESR (0-20) mm/hr PT (9.0-12.0) sec INR (<1.2) ABG pH (7.35-7.45) ABG pO2 (83-108) mmHg ABG HCO3 (21-25) mmol/L ABG Total CO2 (19-24) mmol/L ABG O2 Saturation (94-97) % Sodium (137-145) mmol/L Potassium (3.5-5.1) mmol/L Chloride (98-107) mmol/L BUN (7-17) mg/dL Glucose (74-99) mg/dL POC Glucose (mg/dL) 156 H (70-110) mg/dL Calcium (8.4-10.2) mg/dL Magnesium (1.6-2.3) mg/dL Troponin I (0.000-0.034) ng/mL C-Reactive Protein (<1.0) mg/dL Total Protein (6.3-8.2) g/dL Albumin (3.5-5.0) g/dL Urine Appearance Cloudy H (Clear) Urine Protein 3+ H (Negative) Urine Blood Large H (Negative) Ur Leukocyte Esterase Small H (Negative) Urine RBC 127 H (0-5) /hpf Urine WBC 27 H (0-5) /hpf Amorphous Sediment Moderate H (None) /hpf Urine Bacteria Moderate H (None) /hpf Hyaline Casts 15 H (0-2) /lpf Urine Mucus Rare H (None) /hpf Urine Opiates Screen Detected H (NotDetected) Crossmatch See Detail 02/09/22 Range/Units 05:38 RBC (3.80-5.40) m/uL Hgb (11.4-16.0) gm/dL Hct (34.0-46.0) % MCV (80.0-100.0) fL MCH (25.0-35.0) pg MCHC (31.0-37.0) g/dL RDW (11.5-15.5) % Plt Count (150-450) k/uL Neutrophils # (1.3-7.7) k/uL Lymphocytes # (1.0-4.8) k/uL ESR (0-20) mm/hr PT (9.0-12.0) sec INR (<1.2) ABG pH (7.35-7.45) ABG pO2 159 H (83-108) mmHg ABG HCO3 (21-25) mmol/L ABG Total CO2 26 H (19-24) mmol/L ABG O2 Saturation 100.0 H (94-97) % Sodium (137-145) mmol/L Potassium (3.5-5.1) mmol/L Chloride (98-107) mmol/L BUN (7-17) mg/dL Glucose (74-99) mg/dL POC Glucose (mg/dL) (70-110) mg/dL Calcium (8.4-10.2) mg/dL Magnesium (1.6-2.3) mg/dL Troponin I (0.000-0.034) ng/mL C-Reactive Protein (<1.0) mg/dL Total Protein (6.3-8.2) g/dL Albumin (3.5-5.0) g/dL Urine Appearance (Clear) Urine Protein (Negative) Urine Blood (Negative) Ur Leukocyte Esterase (Negative) Urine RBC (0-5) /hpf Urine WBC (0-5) /hpf Amorphous Sediment (None) /hpf Urine Bacteria (None) /hpf Hyaline Casts (0-2) /lpf Urine Mucus (None) /hpf Urine Opiates Screen (NotDetected) Crossmatch Thrombosis Risk Factor Assmnt - Choose All That Apply Each Factor Represents 1 point: Sepsis (< 1month) Thrombosis Risk Factor Assessment Total Risk Factor Score: 1 Thrombosis Risk Factor Assessment Level: Low Risk Assessment and Plan Assessment: Sepsis with fever and tachypnea Possible acute urinary tract infection with reported recent history of a blood infection at [facility] , rule out Acute pulmonary edema, could be acute CHF versus RDS acute hypoxic respiratory failure rate requiring intubation and mechanical ventilation, secondary to above Altered mental status, mostly metabolic encephalopathy Severe anemia, microcytic hyperchromic Elevated troponin Plan: This is a pleasant 56 years old female who presents with AMS, on mechanical ventilation, anemia continue with mechanical ventilation with pulmonary/critical care team consult Monitor hemoglobin, we will do anemia workup Check echocardiogram Continue with antibiotic, currently on IV vancomycin and ceftriaxone continue with IV fluids Radiologist consult Labs and medication were reviewed.. Continue same treatment. Continue with symptomatic treatment. Resume home medication. Monitor lytes and vitals. DVT and GI prophylaxis. Further recommendations as per clinical course of the patient DVT prophylaxis: no Subcutaneous heparin in view of severe anemia GI Prophylaxis: Ppi Prognosis is guarded
[2022-02-09] MEDS: CHLORHEXIDINE GLUCONATE 15 ML CUP MUCOUS MEM SCH ×2 (09:57→20:45)
[2022-02-09] MEDS: PANTOPRAZOLE 40 MG/10 ML VIAL IVP SCH (09:57)
[2022-02-09] MEDS: SODIUM CHLORIDE 0.9% 1,000 ML IV SCH (09:58)
[2022-02-09 10:54] LABS: % Iron Saturation 5.74 (12.00-45.00)
[2022-02-09 11:26] LABS: Glucose,Whole Blood 124 mg/dL (70-110)
--- NOTE | 2022-02-09 11:27 | CA ---
Transthoracic Echo Report Name: Jacklyn Ayala Age: 36 Gender: F : 1985 Exam Date: 02/09/2022 09:20 Exam Location: [place] Echo Ht (in): 68 Wt (lb): 160 Ordering Physician: Kennedy Chu DO Attending/Referring Phys: [id number], Kimberley [employer] Tierney Brian RDCS Procedure CPT: Indications: chf Cardiac Hx: Technical Quality: Good Contrast 1: Total Dose (mL): Contrast 2: Total Dose (mL): MEASUREMENTS (Male / Female) Normal Values 2D ECHO LV Diastolic Diameter PLAX 5.4 cm 4.2 - 5.9 / 3.9 - 5.3 cm LV Systolic Diameter PLAX 3.2 cm IVS Diastolic Thickness 0.9 cm 0.6 - 1.0 / 0.6 - 0.9 cm LVPW Diastolic Thickness 1.0 cm 0.6 - 1.0 / 0.6 - 0.9 cm LV Relative Wall Thickness 0.4 RV Internal Dim ED PLAX 2.5 cm LA Volume 36.1 cm??? 18 - 58 / 22 - 52 cm??? M-MODE Aortic Root Diameter MM 3.7 cm LA Systolic Diameter MM 3.1 cm LA Ao Ratio MM 0.8 MV E Point Septal Separation 2.7 cm AV Cusp Separation MM 1.9 cm DOPPLER AV Peak Velocity 207.9 cm/s AV Peak Gradient 17.3 mmHg AV Mean Velocity 168.1 cm/s AV Mean Gradient 12.0 mmHg AV Velocity Time Integral 41.1 cm AI Peak Velocity 355.3 cm/s AI Peak Gradient 50.5 mmHg AI Pressure Half Time 285.4 ms LVOT Peak Velocity 157.4 cm/s LVOT Peak Gradient 9.9 mmHg MR Peak Velocity 384.7 cm/s MR Peak Gradient 59.2 mmHg TR Peak Velocity 237.4 cm/s TR Peak Gradient 22.6 mmHg Right Ventricular Systolic Press 35.4 mmHg FINDINGS Left Ventricle Mildly increased posterior wall thickness. Left ventricular ejection fraction is estimated at 55-60 %. Left ventricular cavity size normal. Right Ventricle Normal right ventricular size and function. Mild pulmonary hypertension. Right Atrium Normal right atrial size. Left Atrium Normal left atrial size. Mitral Valve Mitral valve thickened. Mild mitral regurgitation. Aortic Valve Possible bicuspid aortic valve. Moderate aortic regurgitation. Mild aortic stenosis with a peak gradient of 17 mmHg and a mean gradient of 12 mmHg. There appears to be a possible vegetation on the aortic valve leaflet. Tricuspid Valve Mild tricuspid regurgitation. Pulmonic Valve Structurally normal pulmonic valve without significant stenosis. There is no pulmonic regurgitation. Pericardium Normal pericardium without effusion. Aorta Normal aortic root dimension. CONCLUSIONS Normal LV systolic function Moderate aortic regurgitation with mild aortic stenosis Echodense lesion attached to the aortic leaflet consistent with vegetation Suggest transesophageal echo for further evaluation Previewed by: Dr. Khoa Phipps MD (Electronically Signed) Final Date: 09 February 2022 11:26
[2022-02-09] MEDS: VANCOMYCIN 1,250 MG in SODIUM CHLORIDE 0.9% 250 ML IVPB SCH (12:32)
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
--- NOTE | 2022-02-09 14:09 | P.PCN ---
Date of Procedure: 02/09/22 Description of Procedure: Indication: Evaluation of valvular structure or endocarditis Procedure Description: After explaining the procedure to the parents, it's risk and complications, blood pressure, heart rate and O2 saturation were monitored. The patient is intubated and sedated. The probe was introduced into the esophagus without difficulty. Images were obtained. Following that, the probe was removed. There was no immediate complication. Findings: Left atrial size is mildly dilated, left atrial appendage is normal. left ventricle size is normal. Left ventricle systolic function is borderline normal, 50-55%. The tricuspid valve, mitral valve and pulmonic valve are normal. The aortic valve is a tricuspid valve with evidence of vegetation measuring 0.6X 0.8 cm and extending in the outflow track up to 1.6 cm. Descending thoracic aorta appears to be normal. There was no pericardial eff usion. Contrast bubble study revealed no shunting across the intra-atrial septum. Doppler: Pulse wave and color Doppler were obtained, severe aortic regurgitation with moderate multiple jets mitral regurgitation. No significant tricuspid regurgitation was noted. No shunting by color Doppler study. Conclusion: 1. Evidence of vegetation on the aortic valve with severe aortic regurgitation in a tricuspid aortic valve 2. Normal appearance of the mitral valve was moderate multiple jets mitral regurgitation 3. Left ventricle systolic function borderline normal 4. No shunting across the intra-atrial septum 5. Normal appearance of the descending thoracic aorta
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
--- NOTE | 2022-02-09 16:33 | P.GSCN ---
History of Present Illness Consult date: 02/09/22 Reason for Consult: Vegetation on aortic valve, finding on transesophageal echocardiogram Requesting physician: Cyrus Espino History of present illness: This is a 36-year-old female patient who follows on an outpatient basis with Dr. Vizcarra for her primary care service. 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 She also has a history of recent of colitis, diarrhea, splenomegaly, anemia requiring transfusion of PRBCs and altered mental status in which she was admitted to [facility] for further evaluation and treatment. Due to her recent positive blood cultures for Serratia marcescens she was discharged from [facility] on Cipro and Flagyl. Currently the patient is intubated on mechanical ventilator support and her mother and father are present at her bedside. Her history was obtained mainly from her parents and from her chart from [place]. The patient's parents report that she was completing her antibiotic regimen as prescribed. The patient presented to the emergency department here at [facility] last evening due to some altered mental status and respiratory distress . Due to the respiratory distress she was subsequently intubated. A chest x- ray was completed which showed some pulmonary interstitial and airspace edema. For further evaluation a computed tomography scan of her brain and C-spine without contrast was completed which showed a normal computed tomography scan of the cervical spine and normal computed tomography scan of the brain. A 12-lead EKG was completed which showed sinus tachycardia with a heart rate of 112 bpm with nonspecific STT wave changes. Which showed an overall left ventricular ejection fraction to be estimated at 55-60%, mild mitral valve regurgitation, possible bicuspid aortic valve with moderate aortic valve regurgitation and mild aortic valve stenosis with a peak gradient of 17 mmHg and a mean gradient of 12 mmHg. It also demonstrated mild tricuspid valve regurgitation and normal pericardium without effusion. For further evaluation a transesophageal echocardiogram was completed which demonstrated evidence of vegetation on the aortic valve with severe aortic valve regurgitation in a tricuspid aortic valve, moderate multiple jets with mitral valve regurgitation, left ventricular systolic function with borderline normal at 50-55% and normal appearance of the descending thoracic aorta. Initial lab work showed a WBC count of 8.7, hemoglobin 6.9, hematocrit 22.4, platelets 140, PT 12.8, INR 1.2, PTT 24.1, sodium 132, potassium 3.2, chloride 97, BUN 20, creatinine 1.02, glucose 197, calcium 7.1, phosphorus 3.8, magnesium 1.2, troponin 0.379, C-reactive protein 8.9, and proBNP 38,000. Initial blood gas showed a pH of 7.47, pCO2 37, pO2 386, HCO3 27, oxygen saturation 100% and a base excess of 3.2. Blood culture results and urine culture results remain pending. Subsequently, due to the findings of vegetation on the aortic valve a consult was placed to Dr. Gaurav Townsend for further evaluation and treatment recommendations. Review of Systems A review of systems cannot be obtained as the patient is intubated with mechanical ventilator support and is sedated on propofol drip. Past Medical History Additional Past Medical History / Comment(s): Sepsis (Charly Peterson) bacterial sepsis January 2022. Back pain from an accident. anemia, in December 2021, also had findings of splenomegaly and colitis on a computed tomography scan from [facility]. 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 History of Any Multi-Drug Resistant Organisms: None Reported Past Surgical History: Unable to Obtain Additional Past Surgical History / Comment(s): wisdom tooth extraction, dental surgeries Past Anesthesia/Blood Transfusion Reactions: No Reported Reaction Past Psychological History: Anxiety, PTSD Additional Psychological History / Comment(s): History of self cutting. Smoking Status: Never smoker Past Alcohol Use History: None Reported Past Drug Use History: None Reported - Past Family History Father Family Medical History: No Reported History Mother Additional Family Medical History / Comment(s): Mother has history of bipolar Medications and Allergies Home Medications Medication Instructions Recorded Confirmed Type Potassium Chloride ER [K-Dur 20] See Taper PO DAILY 02/09/22 02/09/22 History Allergies Allergy/AdvReac Type Severity Reaction Status Date / Time lactose AdvReac Nausea & Verified 02/09/22 08:45 Vomiting & Diarrhea Sulfa (Sulfonamide AdvReac Nausea & Verified 02/09/22 08:44 Antibiotics) Vomiting & Diarrhea Surgical - Exam Vital Signs Temp Pulse Resp BP Pulse Ox 103 F H 111 H 16 139/79 92 L 02/08/22 22:23 02/08/22 22:23 02/08/22 22:23 02/08/22 22:23 02/08/22 22:23 - General The patient is intubated with mechanical ventilator support. Sedated on propofol drip. well developed, well nourished, no distress - Eyes PERRL, no pale, no icteric - ENT normal pinna, normal nares, normal mucosa, no congestion - Neck Neck is supple, no lymphadenopathy. no masses, trachea midline, no venous distension - Respiratory Lung sounds essentially clear throughout, diminished bilateral bases. Respirations are symmetrical and nonlabored with mechanical ventilator support. No wheezes, rhonchi or crackles. - Cardiovascular Regular rhythm and rate. S1 and S2 present, negative for S3, or gallop. Systolic and diastolic murmur heard best to her left sternal border. Peripheral pulses palpable. No edema present. - Abdomen Abdomen is soft, nontender nondistended. Active bowel sounds present all 4 abdominal quadrants. No guarding rigidity. No organomegaly appreciated. - Genitourinary Deferred - Rectum Deferred - Integumentary Healed scars to her bilateral lower extremities from prior self cutting. Skin is warm and dry. No clubbing or cyanosis is present. no rash, no growths - Neurologic Unable to accurately assess at this time as the patient remained intubated and sedated on propofol drip. - Musculoskeletal Unable to accurately assess at this time as the patient remained intubated and sedated on propofol drip. - Psychiatric Unable to accurately assess at this time as the patient remained intubated and sedated on propofol drip. Results - Labs 02/09/22 07:27 02/09/22 07:27 Abnormal Lab Results - Last 24 Hours (Table) 02/08/22 02/08/22 02/08/22 Range/Units 22:45 22:45 22:45 RBC 3.31 L (3.80-5.40) m/uL Hgb 6.9 L* (11.4-16.0) gm/dL Hct 22.4 L (34.0-46.0) % MCV 67.9 L (80.0-100.0) fL MCH 20.9 L (25.0-35.0) pg MCHC 30.7 L (31.0-37.0) g/dL RDW 20.7 H (11.5-15.5) % Plt Count 140 L (150-450) k/uL Neutrophils # 8.2 H (1.3-7.7) k/uL Lymphocytes # 0.2 L (1.0-4.8) k/uL ESR 90 H (0-20) mm/hr PT (9.0-12.0) sec INR (<1.2) ABG pH (7.35-7.45) ABG pO2 (83-108) mmHg ABG HCO3 (21-25) mmol/L ABG Total CO2 (19-24) mmol/L ABG O2 Saturation (94-97) % Sodium 132 L (137-145) mmol/L Potassium 3.2 L (3.5-5.1) mmol/L Chloride 97 L (98-107) mmol/L BUN 20 H (7-17) mg/dL Creatinine (0.52-1.04) mg/dL Glucose 197 H (74-99) mg/dL POC Glucose (mg/dL) (70-110) mg/dL Calcium 7.1 L (8.4-10.2) mg/dL Magnesium 1.2 L (1.6-2.3) mg/dL Iron (50-170) ug/dL TIBC (228-460) ug/dL % Saturation (12.00-45.00) Transferrin (204.0-354.0) mg/dL Troponin I 0.379 H* (0.000-0.034) ng/mL C-Reactive Protein 8.9 H (<1.0) mg/dL Total Protein 5.9 L (6.3-8.2) g/dL Albumin 2.5 L (3.5-5.0) g/dL Procalcitonin (0.02-0.09) ng/mL Urine Appearance (Clear) Urine Protein (Negative) Urine Blood (Negative) Ur Leukocyte Esterase (Negative) Urine RBC (0-5) /hpf Urine WBC (0-5) /hpf Amorphous Sediment (None) /hpf Urine Bacteria (None) /hpf Hyaline Casts (0-2) /lpf Urine Mucus (None) /hpf Urine Opiates Screen (NotDetected) Crossmatch 02/08/22 02/08/22 02/08/22 Range/Units 23:07 23:50 23:59 RBC (3.80-5.40) m/uL Hgb (11.4-16.0) gm/dL Hct (34.0-46.0) % MCV (80.0-100.0) fL MCH (25.0-35.0) pg MCHC (31.0-37.0) g/dL RDW (11.5-15.5) % Plt Count (150-450) k/uL Neutrophils # (1.3-7.7) k/uL Lymphocytes # (1.0-4.8) k/uL ESR (0-20) mm/hr PT 12.8 H (9.0-12.0) sec INR 1.2 H (<1.2) ABG pH 7.47 H (7.35-7.45) ABG pO2 386 H (83-108) mmHg ABG HCO3 27 H (21-25) mmol/L ABG Total CO2 28 H (19-24) mmol/L ABG O2 Saturation 100.0 H (94-97) % Sodium (137-145) mmol/L Potassium (3.5-5.1) mmol/L Chloride (98-107) mmol/L BUN (7-17) mg/dL Creatinine (0.52-1.04) mg/dL Glucose (74-99) mg/dL POC Glucose (mg/dL) 203 H (70-110) mg/dL Calcium (8.4-10.2) mg/dL Magnesium (1.6-2.3) mg/dL Iron (50-170) ug/dL TIBC (228-460) ug/dL % Saturation (12.00-45.00) Transferrin (204.0-354.0) mg/dL Troponin I (0.000-0.034) ng/mL C-Reactive Protein (<1.0) mg/dL Total Protein (6.3-8.2) g/dL Albumin (3.5-5.0) g/dL Procalcitonin (0.02-0.09) ng/mL Urine Appearance (Clear) Urine Protein (Negative) Urine Blood (Negative) Ur Leukocyte Esterase (Negative) Urine RBC (0-5) /hpf Urine WBC (0-5) /hpf Amorphous Sediment (None) /hpf Urine Bacteria (None) /hpf Hyaline Casts (0-2) /lpf Urine Mucus (None) /hpf Urine Opiates Screen (NotDetected) Crossmatch 02/09/22 02/09/22 02/09/22 Range/Units 00:00 00:13 03:46 RBC (3.80-5.40) m/uL Hgb (11.4-16.0) gm/dL Hct (34.0-46.0) % MCV (80.0-100.0) fL MCH (25.0-35.0) pg MCHC (31.0-37.0) g/dL RDW (11.5-15.5) % Plt Count (150-450) k/uL Neutrophils # (1.3-7.7) k/uL Lymphocytes # (1.0-4.8) k/uL ESR (0-20) mm/hr PT (9.0-12.0) sec INR (<1.2) ABG pH (7.35-7.45) ABG pO2 (83-108) mmHg ABG HCO3 (21-25) mmol/L ABG Total CO2 (19-24) mmol/L ABG O2 Saturation (94-97) % Sodium (137-145) mmol/L Potassium (3.5-5.1) mmol/L Chloride (98-107) mmol/L BUN (7-17) mg/dL Creatinine (0.52-1.04) mg/dL Glucose (74-99) mg/dL POC Glucose (mg/dL) 156 H (70-110) mg/dL Calcium (8.4-10.2) mg/dL Magnesium (1.6-2.3) mg/dL Iron (50-170) ug/dL TIBC (228-460) ug/dL % Saturation (12.00-45.00) Transferrin (204.0-354.0) mg/dL Troponin I (0.000-0.034) ng/mL C-Reactive Protein (<1.0) mg/dL Total Protein (6.3-8.2) g/dL Albumin (3.5-5.0) g/dL Procalcitonin (0.02-0.09) ng/mL Urine Appearance Cloudy H (Clear) Urine Protein 3+ H (Negative) Urine Blood Large H (Negative) Ur Leukocyte Esterase Small H (Negative) Urine RBC 127 H (0-5) /hpf Urine WBC 27 H (0-5) /hpf Amorphous Sediment Moderate H (None) /hpf Urine Bacteria Moderate H (None) /hpf Hyaline Casts 15 H (0-2) /lpf Urine Mucus Rare H (None) /hpf Urine Opiates Screen Detected H (NotDetected) Crossmatch See Detail 02/09/22 02/09/22 02/09/22 Range/Units 05:38 07:27 07:27 RBC 3.58 L (3.80-5.40) m/uL Hgb 8.3 L (11.4-16.0) gm/dL Hct 26.8 L (34.0-46.0) % MCV 74.8 L D (80.0-100.0) fL MCH 23.1 L (25.0-35.0) pg MCHC 30.9 L (31.0-37.0) g/dL RDW 22.2 H (11.5-15.5) % Plt Count 135 L (150-450) k/uL Neutrophils # (1.3-7.7) k/uL Lymphocytes # 0.3 L (1.0-4.8) k/uL ESR (0-20) mm/hr PT (9.0-12.0) sec INR (<1.2) ABG pH (7.35-7.45) ABG pO2 159 H (83-108) mmHg ABG HCO3 (21-25) mmol/L ABG Total CO2 26 H (19-24) mmol/L ABG O2 Saturation 100.0 H (94-97) % Sodium (137-145) mmol/L Potassium (3.5-5.1) mmol/L Chloride (98-107) mmol/L BUN (7-17) mg/dL Creatinine (0.52-1.04) mg/dL Glucose (74-99) mg/dL POC Glucose (mg/dL) (70-110) mg/dL Calcium (8.4-10.2) mg/dL Magnesium (1.6-2.3) mg/dL Iron 11 L (50-170) ug/dL TIBC 185 L (228-460) ug/dL % Saturation 5.74 L (12.00-45.00) Transferrin 132.0 L (204.0-354.0) mg/dL Troponin I (0.000-0.034) ng/mL C-Reactive Protein (<1.0) mg/dL Total Protein (6.3-8.2) g/dL Albumin (3.5-5.0) g/dL Procalcitonin (0.02-0.09) ng/mL Urine Appearance (Clear) Urine Protein (Negative) Urine Blood (Negative) Ur Leukocyte Esterase (Negative) Urine RBC (0-5) /hpf Urine WBC (0-5) /hpf Amorphous Sediment (None) /hpf Urine Bacteria (None) /hpf Hyaline Casts (0-2) /lpf Urine Mucus (None) /hpf Urine Opiates Screen (NotDetected) Crossmatch 02/09/22 02/09/22 02/09/22 Range/Units 07:27 07:27 11:24 RBC (3.80-5.40) m/uL Hgb (11.4-16.0) gm/dL Hct (34.0-46.0) % MCV (80.0-100.0) fL MCH (25.0-35.0) pg MCHC (31.0-37.0) g/dL RDW (11.5-15.5) % Plt Count (150-450) k/uL Neutrophils # (1.3-7.7) k/uL Lymphocytes # (1.0-4.8) k/uL ESR (0-20) mm/hr PT (9.0-12.0) sec INR (<1.2) ABG pH (7.35-7.45) ABG pO2 (83-108) mmHg ABG HCO3 (21-25) mmol/L ABG Total CO2 (19-24) mmol/L ABG O2 Saturation (94-97) % Sodium 133 L (137-145) mmol/L Potassium (3.5-5.1) mmol/L Chloride (98-107) mmol/L BUN 24 H (7-17) mg/dL Creatinine 1.31 H (0.52-1.04) mg/dL Glucose 188 H (74-99) mg/dL POC Glucose (mg/dL) 124 H (70-110) mg/dL Calcium 6.9 L (8.4-10.2) mg/dL Magnesium (1.6-2.3) mg/dL Iron (50-170) ug/dL TIBC (228-460) ug/dL % Saturation (12.00-45.00) Transferrin (204.0-354.0) mg/dL Troponin I (0.000-0.034) ng/mL C-Reactive Protein (<1.0) mg/dL Total Protein (6.3-8.2) g/dL Albumin (3.5-5.0) g/dL Procalcitonin 10.60 H (0.02-0.09) ng/mL Urine Appearance (Clear) Urine Protein (Negative) Urine Blood (Negative) Ur Leukocyte Esterase (Negative) Urine RBC (0-5) /hpf Urine WBC (0-5) /hpf Amorphous Sediment (None) /hpf Urine Bacteria (None) /hpf Hyaline Casts (0-2) /lpf Urine Mucus (None) /hpf Urine Opiates Screen (NotDetected) Crossmatch Microbiology - Last 24 Hours (Table) 02/09/22 00:03 Blood Culture Gram Stain - Preliminary Blood 02/09/22 00:13 Blood Culture Gram Stain - Preliminary Blood 02/09/22 00:03 Blood Culture - Final Blood 02/09/22 00:13 Blood Culture - Final Blood 02/09/22 00:00 Urine Culture - Preliminary Urine,Voided Diabetes panel 02/08/22 02/09/22 02/09/22 Range/Units 22:45 07:27 07:27 Sodium 132 L 133 L (137-145) mmol/L Potassium 3.2 L 3.6 3.6 (3.5-5.1) mmol/L Chloride 97 L 100 (98-107) mmol/L Carbon Dioxide 23 23 (22-30) mmol/L BUN 20 H 24 H (7-17) mg/dL Creatinine 1.02 1.31 H (0.52-1.04) mg/dL Glucose 197 H 188 H (74-99) mg/dL Calcium 7.1 L 6.9 L (8.4-10.2) mg/dL AST 24 (14-36) U/L ALT 14 (4-34) U/L Alkaline Phosphatase 38 (38-126) U/L Total Protein 5.9 L (6.3-8.2) g/dL Albumin 2.5 L (3.5-5.0) g/dL Calcium panel 02/08/22 02/09/22 Range/Units 22:45 07:27 Calcium 7.1 L 6.9 L (8.4-10.2) mg/dL Phosphorus 3.8 (2.5-4.5) mg/dL Albumin 2.5 L (3.5-5.0) g/dL Pituitary panel 02/08/22 02/09/22 02/09/22 Range/Units 22:45 07:27 07:27 Sodium 132 L 133 L (137-145) mmol/L Potassium 3.2 L 3.6 3.6 (3.5-5.1) mmol/L Chloride 97 L 100 (98-107) mmol/L Carbon Dioxide 23 23 (22-30) mmol/L BUN 20 H 24 H (7-17) mg/dL Creatinine 1.02 1.31 H (0.52-1.04) mg/dL Glucose 197 H 188 H (74-99) mg/dL Calcium 7.1 L 6.9 L (8.4-10.2) mg/dL Adrenal panel 02/08/22 02/09/22 02/09/22 Range/Units 22:45 07:27 07:27 Sodium 132 L 133 L (137-145) mmol/L Potassium 3.2 L 3.6 3.6 (3.5-5.1) mmol/L Chloride 97 L 100 (98-107) mmol/L Carbon Dioxide 23 23 (22-30) mmol/L BUN 20 H 24 H (7-17) mg/dL Creatinine 1.02 1.31 H (0.52-1.04) mg/dL Glucose 197 H 188 H (74-99) mg/dL Calcium 7.1 L 6.9 L (8.4-10.2) mg/dL Total Bilirubin 0.6 (0.2-1.3) mg/dL AST 24 (14-36) U/L ALT 14 (4-34) U/L Alkaline Phosphatase 38 (38-126) U/L Total Protein 5.9 L (6.3-8.2) g/dL Albumin 2.5 L (3.5-5.0) g/dL - Imaging Chest x-ray: report reviewed, image reviewed EKG: image reviewed Additional studies: Transthoracic 2-D echocardiogram and transesophageal echocardiogram results reviewed by Dr. Gaurav Townsend Assessment and Plan Assessment: 1. Evidence of vegetation on the aortic valve with severe aortic valve regurgitation in a tricuspid aortic valve on transesophageal echocardiogram 2. History of bacteremia with blood cultures from [facility] positive for Serratia marcescens, awaiting current blood culture results 3. Fever, likely secondary to above. 4. Acute hypoxic respiratory failure requiring intubation and mechanical ventilation, likely secondary to above 5. Altered mental status 6. Recent history of colitis and splenomegaly 7. History of anemia requiring transfusion of packed red blood cells 8. History of anxiety 9. History of PTSD, with history of self mutilating Plan: The patient was seen and examined at her bedside in the intensive care unit with Dr. Gaurav Townsend. Her chart and diagnostics were reviewed. Dr. Townsend discussed the findings on the transesophageal echocardiogram with the patient's parents present at her bedside. We will await her blood culture results, with further recommendations regarding surgery to follow. Infectious disease has been consulted and she is currently on Rocephin and vancomycin for antibiotic coverage. General surgery has been consulted due to her recent history and findings on her computed tomography scan of her abdomen of colitis and splenomegaly. Medical management and other comorbidities per primary care service. More recommendations to follow based on patient's clinical course. I have personally seen and examined the patient, performed the documentation and the assessment and plan as written. 30 minutes spent on the visit . Jv MONTES The patient is a 36 year old female who was originally admitted to [facility] 01/24/2022 with colitis and Serratia bacteremia. She was discharged 4 days later on oral antibiotics. She presented to emergency department last night with altered mental status and was subsequently intubated. WADE reveals an aortic valve vegetation, severe AI, moderate MR, and a preserved EF. CXR performed earlier today reveals pulmonary congestion, though it is improved compared to last night. Last ABG was ok. She is currently hemodynamically stable. Repeat blood cultures still positive for gram negatives. Recommend antibiotics as directed by ID and general surgery evaluation. No plans for emergent surgical intervention on my part at this time. Will continue to follow closely. Discussed patient's current condition and plan of care withe the patient's parents who were at the bedside. I have personally seen and examined the patient, reviewed the documentation and the assessment and plan as written. 60 minutes spent on the visit . Gaurav Townsend M.D.
[2022-02-09] MEDS ORDERED: ACETAMINOPHEN IV (For NPO) 1,000 MG in EMPTY BAG 1 BAG IVPB ONE (17:23)
--- NOTE | 2022-02-09 17:25 | P.GSCN ---
History of Present Illness Consult date: 02/09/22 Reason for Consult: Colitis, bacteremia History of present illness: 36-year-old female presents to the ER with mental status changes. No history in the ER documentation to clarify whether she had any abdominal complaints. She was short of breath. She appeared to be in respiratory distress. She was then intubated. Patient with a complex past history including recent bacteremia and a 1 week hospital stay at [facility]. Patient had a CAT scan performed at the time showing distal colonic wall thickening. There may have been a splenic infarct identified as well. During this hospital stay patient has had frequent fevers and bacteremia once again showing gram-negative. Previous identification showed Serratia. Today she had an echocardiogram showing an aortic valve vegetation with aortic regurgitation. X-rays are abe wing pulmonary congestion. We were consulted after patient was seen by thoracic surgery. Patient apparently had a sedation holiday earlier this morning. When questioned by today's nurse she said she had no abdominal pain. Patient apparently has a history of C. difficile colitis. No history of inflammatory bowel disease that we are aware of. Review of Systems ROS unobtainable: due to endotracheal tube Past Medical History Past Medical History: No Reported History Additional Past Medical History / Comment(s): Sepsis ([facility]) bacterial sepsis January 2022. Back pain from an accident. anemia, in December 2021, also had findings of splenomegaly and colitis on a computed tomography scan from [place]. 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 History of Any Multi-Drug Resistant Organisms: None Reported Past Surgical History: Unable to Obtain Additional Past Surgical History / Comment(s): wisdom tooth extraction, dental surgeries Past Anesthesia/Blood Transfusion Reactions: No Reported Reaction Past Psychological History: Anxiety, PTSD Additional Psychological History / Comment(s): History of self cutting. Smoking Status: Never smoker Past Alcohol Use History: None Reported Past Drug Use History: None Reported - Past Family History Father Family Medical History: No Reported History Mother Family Medical History: No Reported History Additional Family Medical History / Comment(s): Mother has history of bipolar Medications and Allergies Home Medications Medication Instructions Recorded Confirmed Type Potassium Chloride ER [K-Dur 20] See Taper PO DAILY 02/09/22 02/09/22 History Allergies Allergy/AdvReac Type Severity Reaction Status Date / Time lactose AdvReac Nausea & Verified 02/09/22 08:45 Vomiting & Diarrhea Sulfa (Sulfonamide AdvReac Nausea & Verified 02/09/22 08:44 Antibiotics) Vomiting & Diarrhea Surgical - Exam Vital Signs Temp Pulse Resp BP Pulse Ox 103 F H 111 H 16 139/79 92 L 02/08/22 22:23 02/08/22 22:23 02/08/22 22:23 02/08/22 22:23 02/08/22 22:23 Physical exam: General: Well-developed, well-nourished HEENT: Normocephalic, intubated Abdomen: Nontender, nondistended Extremities: Multiple scars across lower extremities, no edema Neuro: Sedated on ventilator Results - Labs 02/09/22 07:27 02/09/22 07:27 Abnormal Lab Results - Last 24 Hours (Table) 02/08/22 02/08/22 02/08/22 Range/Units 22:45 22:45 22:45 RBC 3.31 L (3.80-5.40) m/uL Hgb 6.9 L* (11.4-16.0) gm/dL Hct 22.4 L (34.0-46.0) % MCV 67.9 L (80.0-100.0) fL MCH 20.9 L (25.0-35.0) pg MCHC 30.7 L (31.0-37.0) g/dL RDW 20.7 H (11.5-15.5) % Plt Count 140 L (150-450) k/uL Neutrophils # 8.2 H (1.3-7.7) k/uL Lymphocytes # 0.2 L (1.0-4.8) k/uL ESR 90 H (0-20) mm/hr PT (9.0-12.0) sec INR (<1.2) ABG pH (7.35-7.45) ABG pO2 (83-108) mmHg ABG HCO3 (21-25) mmol/L ABG Total CO2 (19-24) mmol/L ABG O2 Saturation (94-97) % Sodium 132 L (137-145) mmol/L Potassium 3.2 L (3.5-5.1) mmol/L Chloride 97 L (98-107) mmol/L BUN 20 H (7-17) mg/dL Creatinine (0.52-1.04) mg/dL Glucose 197 H (74-99) mg/dL POC Glucose (mg/dL) (70-110) mg/dL Calcium 7.1 L (8.4-10.2) mg/dL Magnesium 1.2 L (1.6-2.3) mg/dL Iron (50-170) ug/dL TIBC (228-460) ug/dL % Saturation (12.00-45.00) Transferrin (204.0-354.0) mg/dL Troponin I 0.379 H* (0.000-0.034) ng/mL C-Reactive Protein 8.9 H (<1.0) mg/dL Total Protein 5.9 L (6.3-8.2) g/dL Albumin 2.5 L (3.5-5.0) g/dL Procalcitonin (0.02-0.09) ng/mL Urine Appearance (Clear) Urine Protein (Negative) Urine Blood (Negative) Ur Leukocyte Esterase (Negative) Urine RBC (0-5) /hpf Urine WBC (0-5) /hpf Amorphous Sediment (None) /hpf Urine Bacteria (None) /hpf Hyaline Casts (0-2) /lpf Urine Mucus (None) /hpf Urine Opiates Screen (NotDetected) Crossmatch 02/08/22 02/08/22 02/08/22 Range/Units 23:07 23:50 23:59 RBC (3.80-5.40) m/uL Hgb (11.4-16.0) gm/dL Hct (34.0-46.0) % MCV (80.0-100.0) fL MCH (25.0-35.0) pg MCHC (31.0-37.0) g/dL RDW (11.5-15.5) % Plt Count (150-450) k/uL Neutrophils # (1.3-7.7) k/uL Lymphocytes # (1.0-4.8) k/uL ESR (0-20) mm/hr PT 12.8 H (9.0-12.0) sec INR 1.2 H (<1.2) ABG pH 7.47 H (7.35-7.45) ABG pO2 386 H (83-108) mmHg ABG HCO3 27 H (21-25) mmol/L ABG Total CO2 28 H (19-24) mmol/L ABG O2 Saturation 100.0 H (94-97) % Sodium (137-145) mmol/L Potassium (3.5-5.1) mmol/L Chloride (98-107) mmol/L BUN (7-17) mg/dL Creatinine (0.52-1.04) mg/dL Glucose (74-99) mg/dL POC Glucose (mg/dL) 203 H (70-110) mg/dL Calcium (8.4-10.2) mg/dL Magnesium (1.6-2.3) mg/dL Iron (50-170) ug/dL TIBC (228-460) ug/dL % Saturation (12.00-45.00) Transferrin (204.0-354.0) mg/dL Troponin I (0.000-0.034) ng/mL C-Reactive Protein (<1.0) mg/dL Total Protein (6.3-8.2) g/dL Albumin (3.5-5.0) g/dL Procalcitonin (0.02-0.09) ng/mL Urine Appearance (Clear) Urine Protein (Negative) Urine Blood (Negative) Ur Leukocyte Esterase (Negative) Urine RBC (0-5) /hpf Urine WBC (0-5) /hpf Amorphous Sediment (None) /hpf Urine Bacteria (None) /hpf Hyaline Casts (0-2) /lpf Urine Mucus (None) /hpf Urine Opiates Screen (NotDetected) Crossmatch 02/09/22 02/09/22 02/09/22 Range/Units 00:00 00:13 03:46 RBC (3.80-5.40) m/uL Hgb (11.4-16.0) gm/dL Hct (34.0-46.0) % MCV (80.0-100.0) fL MCH (25.0-35.0) pg MCHC (31.0-37.0) g/dL RDW (11.5-15.5) % Plt Count (150-450) k/uL Neutrophils # (1.3-7.7) k/uL Lymphocytes # (1.0-4.8) k/uL ESR (0-20) mm/hr PT (9.0-12.0) sec INR (<1.2) ABG pH (7.35-7.45) ABG pO2 (83-108) mmHg ABG HCO3 (21-25) mmol/L ABG Total CO2 (19-24) mmol/L ABG O2 Saturation (94-97) % Sodium (137-145) mmol/L Potassium (3.5-5.1) mmol/L Chloride (98-107) mmol/L BUN (7-17) mg/dL Creatinine (0.52-1.04) mg/dL Glucose (74-99) mg/dL POC Glucose (mg/dL) 156 H (70-110) mg/dL Calcium (8.4-10.2) mg/dL Magnesium (1.6-2.3) mg/dL Iron (50-170) ug/dL TIBC (228-460) ug/dL % Saturation (12.00-45.00) Transferrin (204.0-354.0) mg/dL Troponin I (0.000-0.034) ng/mL C-Reactive Protein (<1.0) mg/dL Total Protein (6.3-8.2) g/dL Albumin (3.5-5.0) g/dL Procalcitonin (0.02-0.09) ng/mL Urine Appearance Cloudy H (Clear) Urine Protein 3+ H (Negative) Urine Blood Large H (Negative) Ur Leukocyte Esterase Small H (Negative) Urine RBC 127 H (0-5) /hpf Urine WBC 27 H (0-5) /hpf Amorphous Sediment Moderate H (None) /hpf Urine Bacteria Moderate H (None) /hpf Hyaline Casts 15 H (0-2) /lpf Urine Mucus Rare H (None) /hpf Urine Opiates Screen Detected H (NotDetected) Crossmatch See Detail 02/09/22 02/09/22 02/09/22 Range/Units 05:38 07:27 07:27 RBC 3.58 L (3.80-5.40) m/uL Hgb 8.3 L (11.4-16.0) gm/dL Hct 26.8 L (34.0-46.0) % MCV 74.8 L D (80.0-100.0) fL MCH 23.1 L (25.0-35.0) pg MCHC 30.9 L (31.0-37.0) g/dL RDW 22.2 H (11.5-15.5) % Plt Count 135 L (150-450) k/uL Neutrophils # (1.3-7.7) k/uL Lymphocytes # 0.3 L (1.0-4.8) k/uL ESR (0-20) mm/hr PT (9.0-12.0) sec INR (<1.2) ABG pH (7.35-7.45) ABG pO2 159 H (83-108) mmHg ABG HCO3 (21-25) mmol/L ABG Total CO2 26 H (19-24) mmol/L ABG O2 Saturation 100.0 H (94-97) % Sodium (137-145) mmol/L Potassium (3.5-5.1) mmol/L Chloride (98-107) mmol/L BUN (7-17) mg/dL Creatinine (0.52-1.04) mg/dL Glucose (74-99) mg/dL POC Glucose (mg/dL) (70-110) mg/dL Calcium (8.4-10.2) mg/dL Magnesium (1.6-2.3) mg/dL Iron 11 L (50-170) ug/dL TIBC 185 L (228-460) ug/dL % Saturation 5.74 L (12.00-45.00) Transferrin 132.0 L (204.0-354.0) mg/dL Troponin I (0.000-0.034) ng/mL C-Reactive Protein (<1.0) mg/dL Total Protein (6.3-8.2) g/dL Albumin (3.5-5.0) g/dL Procalcitonin (0.02-0.09) ng/mL Urine Appearance (Clear) Urine Protein (Negative) Urine Blood (Negative) Ur Leukocyte Esterase (Negative) Urine RBC (0-5) /hpf Urine WBC (0-5) /hpf Amorphous Sediment (None) /hpf Urine Bacteria (None) /hpf Hyaline Casts (0-2) /lpf Urine Mucus (None) /hpf Urine Opiates Screen (NotDetected) Crossmatch 02/09/22 02/09/22 02/09/22 Range/Units 07:27 07:27 11:24 RBC (3.80-5.40) m/uL Hgb (11.4-16.0) gm/dL Hct (34.0-46.0) % MCV (80.0-100.0) fL MCH (25.0-35.0) pg MCHC (31.0-37.0) g/dL RDW (11.5-15.5) % Plt Count (150-450) k/uL Neutrophils # (1.3-7.7) k/uL Lymphocytes # (1.0-4.8) k/uL ESR (0-20) mm/hr PT (9.0-12.0) sec INR (<1.2) ABG pH (7.35-7.45) ABG pO2 (83-108) mmHg ABG HCO3 (21-25) mmol/L ABG Total CO2 (19-24) mmol/L ABG O2 Saturation (94-97) % Sodium 133 L (137-145) mmol/L Potassium (3.5-5.1) mmol/L Chloride (98-107) mmol/L BUN 24 H (7-17) mg/dL Creatinine 1.31 H (0.52-1.04) mg/dL Glucose 188 H (74-99) mg/dL POC Glucose (mg/dL) 124 H (70-110) mg/dL Calcium 6.9 L (8.4-10.2) mg/dL Magnesium (1.6-2.3) mg/dL Iron (50-170) ug/dL TIBC (228-460) ug/dL % Saturation (12.00-45.00) Transferrin (204.0-354.0) mg/dL Troponin I (0.000-0.034) ng/mL C-Reactive Protein (<1.0) mg/dL Total Protein (6.3-8.2) g/dL Albumin (3.5-5.0) g/dL Procalcitonin 10.60 H (0.02-0.09) ng/mL Urine Appearance (Clear) Urine Protein (Negative) Urine Blood (Negative) Ur Leukocyte Esterase (Negative) Urine RBC (0-5) /hpf Urine WBC (0-5) /hpf Amorphous Sediment (None) /hpf Urine Bacteria (None) /hpf Hyaline Casts (0-2) /lpf Urine Mucus (None) /hpf Urine Opiates Screen (NotDetected) Crossmatch Microbiology - Last 24 Hours (Table) 02/09/22 00:03 Blood Culture Gram Stain - Preliminary Blood 02/09/22 00:13 Blood Culture Gram Stain - Preliminary Blood 02/09/22 00:03 Blood Culture - Final Blood 02/09/22 00:13 Blood Culture - Final Blood 02/09/22 00:00 Urine Culture - Preliminary Urine,Voided Diabetes panel 02/08/22 02/09/22 02/09/22 Range/Units 22:45 07:27 07:27 Sodium 132 L 133 L (137-145) mmol/L Potassium 3.2 L 3.6 3.6 (3.5-5.1) mmol/L Chloride 97 L 100 (98-107) mmol/L Carbon Dioxide 23 23 (22-30) mmol/L BUN 20 H 24 H (7-17) mg/dL Creatinine 1.02 1.31 H (0.52-1.04) mg/dL Glucose 197 H 188 H (74-99) mg/dL Calcium 7.1 L 6.9 L (8.4-10.2) mg/dL AST 24 (14-36) U/L ALT 14 (4-34) U/L Alkaline Phosphatase 38 (38-126) U/L Total Protein 5.9 L (6.3-8.2) g/dL Albumin 2.5 L (3.5-5.0) g/dL Calcium panel 02/08/22 02/09/22 Range/Units 22:45 07:27 Calcium 7.1 L 6.9 L (8.4-10.2) mg/dL Phosphorus 3.8 (2.5-4.5) mg/dL Albumin 2.5 L (3.5-5.0) g/dL Pituitary panel 02/08/22 02/09/22 02/09/22 Range/Units 22:45 07:27 07:27 Sodium 132 L 133 L (137-145) mmol/L Potassium 3.2 L 3.6 3.6 (3.5-5.1) mmol/L Chloride 97 L 100 (98-107) mmol/L Carbon Dioxide 23 23 (22-30) mmol/L BUN 20 H 24 H (7-17) mg/dL Creatinine 1.02 1.31 H (0.52-1.04) mg/dL Glucose 197 H 188 H (74-99) mg/dL Calcium 7.1 L 6.9 L (8.4-10.2) mg/dL Adrenal panel 02/08/22 02/09/22 02/09/22 Range/Units 22:45 07:27 07:27 Sodium 132 L 133 L (137-145) mmol/L Potassium 3.2 L 3.6 3.6 (3.5-5.1) mmol/L Chloride 97 L 100 (98-107) mmol/L Carbon Dioxide 23 23 (22-30) mmol/L BUN 20 H 24 H (7-17) mg/dL Creatinine 1.02 1.31 H (0.52-1.04) mg/dL Glucose 197 H 188 H (74-99) mg/dL Calcium 7.1 L 6.9 L (8.4-10.2) mg/dL Total Bilirubin 0.6 (0.2-1.3) mg/dL AST 24 (14-36) U/L ALT 14 (4-34) U/L Alkaline Phosphatase 38 (38-126) U/L Total Protein 5.9 L (6.3-8.2) g/dL Albumin 2.5 L (3.5-5.0) g/dL Assessment and Plan (1) Colitis Narrative/Plan: 36-year-old female with colitis seen on recent CAT scans and concurrent findings of bacteremia with aortic valve vegetation. Suspect recent splenic abnormality represents septic infarct. We'll repeat CT abdomen and pelvis at this time given the patient's persistent fevers and bacteremia. Continue appropriate antibiotic coverage per infectious disease. We'll follow with you. Current Visit: Yes Status: Acute Code(s): K52.9 - NONINFECTIVE GASTROENTER ITIS AND COLITIS, UNSPECIFIED SNOMED Code(s): 27176654
[2022-02-09 17:48] LABS: Glucose,Whole Blood 118 mg/dL (70-110)
--- NOTE | 2022-02-09 17:56 | XR ---
EXAMINATION TYPE: XR chest 1V DATE OF EXAM: 02/09/2022 COMPARISON: Same-day HISTORY: 2 placement TECHNIQUE: Single frontal view of the chest is obtained. FINDINGS: There is interval advancement of endotracheal tube now terminating 2.7 cm above the awais . The nasogastric tube remains in place. Unchanged mild patchy opacity in the right mid lung. No sign ificant pleural effusion, or pneumothorax seen. The cardiac silhouette size is within normal limits. The osseous structures are unchanged. IMPRESSION: As above.
[2022-02-09] MEDS: IOPAMIDOL CONTRAST (ORAL USE) VIAL PO PRN ×2 (20:08→21:09)
--- NOTE | 2022-02-09 21:45 | P.CONS ---
History of Present Illness - Reason for Consult Consult date: 02/09/22 Bacteremia, endocarditis Requesting physician: Nicole Palomo - Chief Complaint Shortness of breath x 1 day - History of Present Illness Patient is a 36-year female with a past medical history significant for IV drug use with recent admission to the [facility] apparently treated for FUO and recently discharged on oral Cipro and Flagyl patient was brought into the ER last night with acute respiratory failure patient was found with pulmonary edema patient up getting intubated and has been transferred to the ICU patient on presentation to the hospital did have a fever of 103 F patient is currently hemodynamically stable not requiring any pressor support FiO2 is currently stable at 40% patient did have a normal white count hemoglobin was low sed rate was elevated BUN and creatinine is mildly elevated procalcitonin 0.60 urine was positive for urine testing was positive for opiates blood cultures obtained which are currently pending patient has been started on Rocephin and vancomycin infectious he was consulted for further management of antibiotic therapy patient apparently did have an echocardiogram and there was concern for possible vegetation to the aortic wall most information has been obtained from the chart and nursing staff and the patient is currently intubated on the vent and could not provide any history Review of Systems Positive points has been mentioned in HPI complete review could not be obtained because patient is intubated on the vent Past Medical History Past Medical History: No Reported History Additional Past Medical History / Comment(s): Sepsis (Charly Peterson) bacterial sepsis January 2022. Back pain from an accident. anemia. 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 History of Any Multi-Drug Resistant Organisms: None Reported Additional Past Surgical History / Comment(s): wisdom tooth extraction, dental surgeries Past Anesthesia/Blood Transfusion Reactions: No Reported Reaction Smoking Status: Never smoker - Past Family History Father Family Medical History: No Reported History Mother Family Medical History: No Reported History Medications and Allergies Home Medications Medication Instructions Recorded Confirmed Type Potassium Chloride ER [K-Dur 20] See Taper PO DAILY 02/09/22 02/09/22 History Allergies Allergy/AdvReac Type Severity Reaction Status Date / Time lactose AdvReac Nausea & Verified 02/09/22 08:45 Vomiting & Diarrhea Sulfa (Sulfonamide AdvReac Nausea & Verified 02/09/22 08:44 Antibiotics) Vomiting & Diarrhea Physical Exam Vitals: Vital Signs Temp Pulse Resp BP Pulse Ox FiO2 02/09/22 09:00 96 36 H 110/49 100 02/09/22 08:30 85 36 H 111/57 100 02/09/22 08:00 97.7 F 44 H 113/55 100 40 02/09/22 07:30 78 32 H 107/53 100 02/09/22 07:21 40 02/09/22 07:04 97.7 F 78 30 H 107/53 100 02/09/22 07:00 78 30 H 108/55 100 02/09/22 06:30 75 30 H 106/51 100 02/09/22 06:00 72 29 H 107/53 100 02/09/22 05:44 97.6 F 70 31 H 107/53 100 02/09/22 05:41 40 02/09/22 05:30 97.6 F 69 31 H 106/50 100 40 02/09/22 05:14 97.1 F L 69 29 H 106/50 02/09/22 05:04 97.1 F L 69 29 H 105/49 100 02/09/22 05:00 97.1 F L 68 26 H 104/50 100 02/09/22 04:55 97.1 F L 68 29 H 104/50 100 02/09/22 04:50 67 30 H 104/50 100 02/09/22 04:40 67 76 H 103/50 100 02/09/22 04:30 67 66 H 106/54 100 02/09/22 04:20 68 32 H 106/54 100 02/09/22 04:10 69 20 106/54 100 50 02/09/22 04:00 97.1 F L 68 30 H 106/54 100 40 02/09/22 03:51 100 02/09/22 03:40 110/52 02/09/22 03:30 73 0 L 110/52 100 02/09/22 03:20 70 0 L 109/50 100 02/09/22 03:10 70 0 L 110/51 100 02/09/22 03:00 72 0 L 113/51 100 02/09/22 02:50 80 16 117/69 100 02/09/22 02:40 73 23 110/55 100 02/09/22 02:30 97.6 F 73 21 109/52 100 02/09/22 02:20 72 20 107/55 100 02/09/22 02:10 73 19 108/52 100 02/09/22 02:00 73 32 H 107/53 100 02/09/22 01:50 73 26 H 106/53 100 02/09/22 01:40 75 11 L 104/52 100 02/09/22 01:30 74 6 L 105/52 100 02/09/22 01:20 73 18 106/50 100 02/09/22 01:10 74 17 105/48 100 02/09/22 01:00 73 19 101/46 99 02/09/22 00:50 75 28 H 104/46 99 02/09/22 00:46 50 02/09/22 00:40 78 35 H 113/41 100 02/09/22 00:30 79 36 H 115/50 100 02/09/22 00:20 81 36 H 115/50 100 02/09/22 00:10 86 29 H 115/50 100 02/09/22 00:00 144/93 02/08/22 23:52 94 25 H 143/68 100 02/08/22 23:50 98 22 154/89 100 02/08/22 23:40 154/89 02/08/22 23:36 100 02/08/22 23:30 105 H 26 H 154/89 100 02/08/22 23:29 100 02/08/22 23:20 111 H 6 L 156/68 100 02/08/22 23:10 101 H 53 H 177/56 83 L 02/08/22 23:01 111 H 43 H 177/56 90 L 02/08/22 22:23 103 F H 111 H 16 139/79 92 L Intake and Output 02/08/22 02/09/22 02/09/22 22:59 06:59 14:59 Intake Total 998.361 453.328 Output Total 305 40 Balance 693.361 413.328 Intake: IV 600 100 Dextrose 5%-0.45% NaCl 1, 400 100 000 ml @ 100 mls/hr IV . Q10H [facility] Rx#:[id number] Magnesium Sulfate-D5w Pmx 200 1 gm In Dextrose/Water 1 100ml.bag @ 100 mls/hr IVPB Q1H [facility] Rx#: [id number] Intake, IV Titration 88.361 43.328 Amount propofoL 1,000 mg In 50.695 43.328 Empty Bag 1 bag @ 10 MCG/ KG/MIN 4.355 mls/hr IV . [id number] [facility] Rx#:[id number] propofoL 1,000 mg In 37.666 Empty Bag 1 bag @ Titrate IV .Q0M [facility] Rx#: [id number] Blood Product 310 310 Rc As-1 Unit 310 [id number] Rc As-1 Unit 0 310 [id number] Output: Urine 305 40 Other: Voiding Method Indwelling Catheter Indwelling Catheter Weight 72.575 kg 75.1 kg GENERAL DESCRIPTION: Middle-aged female intubated on the vent. HEENT: Shows Pallor , no scleral icterus. Oral mucous membrane is dry. No pharyngeal erythema or thrush NECK: Trachea central, no thyromegaly. LUNGS: Unlabored breathing. Decreased breath sound at the base. HEART: S1, S2, regular rate and rhythm. No loud murmur ABDOMEN: Soft, no tenderness , guarding or rigidity, no organomegaly EXTREMITIES: No edema of feet. SKIN: No rash, no masses palpable. NEUROLOGICAL: The patient is sedated on the vent Results CBC & Chem 7: 02/10/22 13:33 02/10/22 06:28 Labs: Abnormal Lab Results - Last 24 Hours (Table) 02/08/22 02/08/22 02/08/22 Range/Units 22:45 22:45 22:45 RBC 3.31 L (3.80-5.40) m/uL Hgb 6.9 L* (11.4-16.0) gm/dL Hct 22.4 L (34.0-46.0) % MCV 67.9 L (80.0-100.0) fL MCH 20.9 L (25.0-35.0) pg MCHC 30.7 L (31.0-37.0) g/dL RDW 20.7 H (11.5-15.5) % Plt Count 140 L (150-450) k/uL Neutrophils # 8.2 H (1.3-7.7) k/uL Lymphocytes # 0.2 L (1.0-4.8) k/uL ESR 90 H (0-20) mm/hr PT (9.0-12.0) sec INR (<1.2) ABG pH (7.35-7.45) ABG pO2 (83-108) mmHg ABG HCO3 (21-25) mmol/L ABG Total CO2 (19-24) mmol/L ABG O2 Saturation (94-97) % Sodium 132 L (137-145) mmol/L Potassium 3.2 L (3.5-5.1) mmol/L Chloride 97 L (98-107) mmol/L BUN 20 H (7-17) mg/dL Creatinine (0.52-1.04) mg/dL Glucose 197 H (74-99) mg/dL POC Glucose (mg/dL) (70-110) mg/dL Calcium 7.1 L (8.4-10.2) mg/dL Magnesium 1.2 L (1.6-2.3) mg/dL Troponin I 0.379 H* (0.000-0.034) ng/mL C-Reactive Protein 8.9 H (<1.0) mg/dL Total Protein 5.9 L (6.3-8.2) g/dL Albumin 2.5 L (3.5-5.0) g/dL Urine Appearance (Clear) Urine Protein (Negative) Urine Blood (Negative) Ur Leukocyte Esterase (Negative) Urine RBC (0-5) /hpf Urine WBC (0-5) /hpf Amorphous Sediment (None) /hpf Urine Bacteria (None) /hpf Hyaline Casts (0-2) /lpf Urine Mucus (None) /hpf Urine Opiates Screen (NotDetected) Crossmatch 02/08/22 02/08/22 02/08/22 Range/Units 23:07 23:50 23:59 RBC (3.80-5.40) m/uL Hgb (11.4-16.0) gm/dL Hct (34.0-46.0) % MCV (80.0-100.0) fL MCH (25.0-35.0) pg MCHC (31.0-37.0) g/dL RDW (11.5-15.5) % Plt Count (150-450) k/uL Neutrophils # (1.3-7.7) k/uL Lymphocytes # (1.0-4.8) k/uL ESR (0-20) mm/hr PT 12.8 H (9.0-12.0) sec INR 1.2 H (<1.2) ABG pH 7.47 H (7.35-7.45) ABG pO2 386 H (83-108) mmHg ABG HCO3 27 H (21-25) mmol/L ABG Total CO2 28 H (19-24) mmol/L ABG O2 Saturation 100.0 H (94-97) % Sodium (137-145) mmol/L Potassium (3.5-5.1) mmol/L Chloride (98-107) mmol/L BUN (7-17) mg/dL Creatinine (0.52-1.04) mg/dL Glucose (74-99) mg/dL POC Glucose (mg/dL) 203 H (70-110) mg/dL Calcium (8.4-10.2) mg/dL Magnesium (1.6-2.3) mg/dL Troponin I (0.000-0.034) ng/mL C-Reactive Protein (<1.0) mg/dL Total Protein (6.3-8.2) g/dL Albumin (3.5-5.0) g/dL Urine Appearance (Clear) Urine Protein (Negative) Urine Blood (Negative) Ur Leukocyte Esterase (Negative) Urine RBC (0-5) /hpf Urine WBC (0-5) /hpf Amorphous Sediment (None) /hpf Urine Bacteria (None) /hpf Hyaline Casts (0-2) /lpf Urine Mucus (None) /hpf Urine Opiates Screen (NotDetected) Crossmatch 02/09/22 02/09/22 02/09/22 Range/Units 00:00 00:13 03:46 RBC (3.80-5.40) m/uL Hgb (11.4-16.0) gm/dL Hct (34.0-46.0) % MCV (80.0-100.0) fL MCH (25.0-35.0) pg MCHC (31.0-37.0) g/dL RDW (11.5-15.5) % Plt Count (150-450) k/uL Neutrophils # (1.3-7.7) k/uL Lymphocytes # (1.0-4.8) k/uL ESR (0-20) mm/hr PT (9.0-12.0) sec INR (<1.2) ABG pH (7.35-7.45) ABG pO2 (83-108) mmHg ABG HCO3 (21-25) mmol/L ABG Total CO2 (19-24) mmol/L ABG O2 Saturation (94-97) % Sodium (137-145) mmol/L Potassium (3.5-5.1) mmol/L Chloride (98-107) mmol/L BUN (7-17) mg/dL Creatinine (0.52-1.04) mg/dL Glucose (74-99) mg/dL POC Glucose (mg/dL) 156 H (70-110) mg/dL Calcium (8.4-10.2) mg/dL Magnesium (1.6-2.3) mg/dL Troponin I (0.000-0.034) ng/mL C-Reactive Protein (<1.0) mg/dL Total Protein (6.3-8.2) g/dL Albumin (3.5-5.0) g/dL Urine Appearance Cloudy H (Clear) Urine Protein 3+ H (Negative) Urine Blood Large H (Negative) Ur Leukocyte Esterase Small H (Negative) Urine RBC 127 H (0-5) /hpf Urine WBC 27 H (0-5) /hpf Amorphous Sediment Moderate H (None) /hpf Urine Bacteria Moderate H (None) /hpf Hyaline Casts 15 H (0-2) /lpf Urine Mucus Rare H (None) /hpf Urine Opiates Screen Detected H (NotDetected) Crossmatch See Detail 02/09/22 02/09/22 02/09/22 Range/Units 05:38 07:27 07:27 RBC 3.58 L (3.80-5.40) m/uL Hgb 8.3 L (11.4-16.0) gm/dL Hct 26.8 L (34.0-46.0) % MCV 74.8 L D (80.0-100.0) fL MCH 23.1 L (25.0-35.0) pg MCHC 30.9 L (31.0-37.0) g/dL RDW 22.2 H (11.5-15.5) % Plt Count 135 L (150-450) k/uL Neutrophils # (1.3-7.7) k/uL Lymphocytes # 0.3 L (1.0-4.8) k/uL ESR (0-20) mm/hr PT (9.0-12.0) sec INR (<1.2) ABG pH (7.35-7.45) ABG pO2 159 H (83-108) mmHg ABG HCO3 (21-25) mmol/L ABG Total CO2 26 H (19-24) mmol/L ABG O2 Saturation 100.0 H (94-97) % Sodium 133 L (137-145) mmol/L Potassium (3.5-5.1) mmol/L Chloride (98-107) mmol/L BUN 24 H (7-17) mg/dL Creatinine 1.31 H (0.52-1.04) mg/dL Glucose 188 H (74-99) mg/dL POC Glucose (mg/dL) (70-110) mg/dL Calcium 6.9 L (8.4-10.2) mg/dL Magnesium (1.6-2.3) mg/dL Troponin I (0.000-0.034) ng/mL C-Reactive Protein (<1.0) mg/dL Total Protein (6.3-8.2) g/dL Albumin (3.5-5.0) g/dL Urine Appearance (Clear) Urine Protein (Negative) Urine Blood (Negative) Ur Leukocyte Esterase (Negative) Urine RBC (0-5) /hpf Urine WBC (0-5) /hpf Amorphous Sediment (None) /hpf Urine Bacteria (None) /hpf Hyaline Casts (0-2) /lpf Urine Mucus (None) /hpf Urine Opiates Screen (NotDetected) Crossmatch Microbiology - Last 24 Hours (Table) 02/09/22 00:00 Urine Culture - Preliminary Urine,Voided Assessment and Plan (1) Sepsis Current Visit: Yes Status: Acute Code(s): A41.9 - SEPSIS, UNSPECIFIED ORGANISM SNOMED Code(s): 29336695 Plan: 1patient presented to hospital with sepsis in this patient did have a fever tachycardia tachypnea now with evidence of vegetation on aortic wall likely sec ondary to endocarditis and could be related to either MRSA or Pseudomonas to the likely pathogen. 2patient to continue vancomycin pharmacy to dose however switch Rocephin to cefepime 2 g every 8 hours while waiting for the culture to finalize. 3we will wait for the WADE per cardiology. We will follow on clinical condition and cultures to further adjust medication if needed Thank you for this consultation will follow this patient along with you Time with Patient: Greater than 30
--- NOTE | 2022-02-09 23:31 | CT ---
EXAMINATION TYPE: CT abdomen pelvis wo con DATE OF EXAM: 02/09/2022 COMPARISON: None HISTORY: Recent colitis with bacteremia and fevers CT DLP: 646.6 mGycm Automated exposure control for dose reduction was used. Images obtained from the diaphragm to the floor of the pelvis with oral contrast only. There are bilateral pleural effusions. There is some infiltrate and atelectasis at the lung bases. He art is enlarged. Liver and spleen are enlarged. Liver measures 23.5 cm in length. The spleen measures 20 cm in length. There is nasogastric tube in the stomach. There is no evidence of pancreatic mass. Gallbladder appea rs contracted with wall thickening and edema. There is no adrenal mass. Kidneys appear enlarged and measure almost 15 cm. No hydronephrosis. There is no retroperitoneal adenopathy. There is a Jefferson catheter in the urinary bladder. There is some low density free fluid in the cul-de-sac. No sign of a bowel obstruction. The large bowel and small carissa l show normal contrast opacification. There is contrast material extending to the rectum. No inguinal hernia. Appendix not clearly seen. No sign of thickened appendix. No evidence of free air. Lumbar spine is intact. No compression fracture. Posterior elements are intact. Hip joints are intact . IMPRESSION: Cardiomegaly with pleural effusions and basilar pulmonary infiltrates and atelectasis. This could be congestive heart failure. Moderately severe hepatosplenomegaly. Bilateral enlarged kidneys. No renal obstruction. No bowel obst ruction. No intestinal wall thickening seen to suggest colitis. Mild free fluid in the pelvis.
[2022-02-09] MEDS: CEFEPIME 2 GM in SODIUM CHLORIDE 0.9% 100 ML IVPB SCH (23:58)
[2022-02-10 00:52] LABS: Glucose,Whole Blood 133 mg/dL (70-110)
[2022-02-10] MEDS: VANCOMYCIN 1,250 MG in SODIUM CHLORIDE 0.9% 250 ML IVPB SCH (01:13)
[2022-02-10 05:42] LABS: Glucose,Whole Blood 126 mg/dL (70-110)
[2022-02-10] MEDS: SODIUM CHLORIDE 0.9% 1,000 ML IV SCH (05:45)
[2022-02-10 06:02] LABS: Allen Test Performed? Yes
[2022-02-10 06:13] LABS: ABG HCO3 24 mmol/L (21-25); ABG PCO2 32 mmHg (35-45); ABG PH 7.49 (7.35-7.45); ABG PO2 187 mmHg (83-108); ABG TCO2 25 mmol/L (19-24)
[2022-02-10 07:10] LABS: Albumin 2.2 g/dL (3.5-5.0); Calcium 7.2 mg/dL (8.4-10.2); Magnesium 1.7 mg/dL (1.6-2.3); Potassium 3.3 mmol/L (3.5-5.1); Total Bilirubin 0.4 mg/dL (0.2-1.3); Total Protein 5.4 g/dL (6.3-8.2)
[2022-02-10 07:15] LABS: Anisocytosis Moderate; Basophils % (A) 0 %; Eosinophils % (A) 1 %; HCT 26.4 % (34.0-46.0); HGB 8.3 gm/dL (11.4-16.0); Hypochromasia Marked; Lymphocytes # (A) 0.2 k/uL (1.0-4.8); Lymphocytes % (A) 5 %; MCHC 31.4 g/dL (31.0-37.0); MCV 73.3 fL (80.0-100.0); Mean Platelet Volume 7.6; Microcytosis Marked; Monocytes # (A) 0.2 k/uL (0-1.0); Monocytes % (A) 4 %; Neutrophils % (A) 89 %; Poikilocytosis Moderate; WBC 4.5 k/uL (3.8-10.6)
--- NOTE | 2022-02-10 07:18 | XR ---
EXAMINATION TYPE: XR chest 1V portable DATE OF EXAM: 02/10/2022 COMPARISON: 02/09/2022 HISTORY: SOB, Follow Up FINDINGS: Indwelling tubes and catheters are unchanged. No focal consolidation present. Stable appearance of the cardio-mediastinal structures at this time. IMPRESSION: 1. Stable portable chest. Clinical correlation and follow up until resolution is recommended.
[2022-02-10] MEDS: POTASSIUM BICARBONATE/CIT AC 20 MEQ TABLET.EFF NG-TUBE SCH ×2 (07:48→10:00)
[2022-02-10] MEDS: CHLORHEXIDINE GLUCONATE 15 ML CUP MUCOUS MEM SCH ×2 (07:48→23:42)
[2022-02-10] MEDS: PANTOPRAZOLE 40 MG/10 ML VIAL IVP SCH (07:48)
[2022-02-10] MEDS: CEFEPIME 2 GM in SODIUM CHLORIDE 0.9% 100 ML IVPB SCH ×2 (07:48→15:43)
[2022-02-10 07:49] LABS: Platelet Count 92 k/uL (150-450)
[2022-02-10 07:53] LABS: Poikilocytosis (M) Present
--- NOTE | 2022-02-10 08:21 | P.PN ---
Subjective Progress Note Date: 02/10/22 PROGRESS NOTE The patient is a 36-year-old female who presented with progressive dyspnea, change in mental status requiring mechanical ventilation. She was febrile and had positive blood cultures. She was recently discharged from [facility] with diarrhea and positive blood cultures as well with change in mental status. Her echocardiogram performed yesterday showed possible aortic valve vegetations that was confirmed on the transesophageal echocardiogram with severe aortic regurgitation and a tricuspid aortic valve. She had moderate mitral regurgitation. Her echocardiogram at [facility] on January 25 showed a normal systolic function with trace aortic regurgitation and no mention of vegetations. She had at [facility] evidence of splenic infarct and colitis as well has severe anemia. She continues to be intubated, tachycardic at times. Her blood pressure is stable. The color of her urine is better. There is no evidence of malignant arrhythmia. She continues to be febrile. Her urinary output is good. Her blood cultures were positive for Se rratia Marcescens which is the same bacteria noted at [facility]. She was seen by the cardiovascular team yesterday. Her computed tomography scan of the abdomen showed moderately severe hepatosplenomegaly was bilateral enlargement of the kidneys. She had cardiomegaly with pleural effusion and basilar pulmonary infiltrate atelectasis. No suggestion of colitis was noted. Medications: Cefepime, protonix, vancomycin PHYSICAL EXAMINATION: 36-year-old female intubated and sedated Blood pressure 131/60 heart rate 99 LUNGS: Clear to auscultation anteriorly HEART: Regular rate and rhythm, S1, S2. No S3. systolic ejection murmur with diastolic murmur at the base ABDOMEN: Soft, positive bowel sounds, no organomegaly EXTREMETIES: No edema LAB: Hemoglobin 8.3, white blood cell 4.5, BUN 26, creatinine 1.21, potassium 3.3. Albumin 2.2 IMPRESSION: 1. Aortic valve endocarditis with positive blood cultures and severe aortic regurgitation 2. Colitis and spleen infarct by CAT scan at [facility] 3. Respiratory failure 4. Change in mental status prior to admission related to the sepsis 5. Anemia, most likely related to the infectious process 6. Abnormal renal functions PLAN: 1. IV antibiotics per infectious disease 2. It is possible that her splenic infarct is related to a septic emboli 3. Continue supportive care 4. Consider transfer to tertiary care in view of the serious condition. 5. Prognosis is guarded Objective - Vital Signs Vital signs: Vital Signs Temp 98.4 F 02/10/22 06:30 Pulse 99 02/10/22 07:00 Resp 30 H 02/10/22 07:00 BP 131/63 02/10/22 07:00 Pulse Ox 99 02/10/22 07:00 FiO2 40 02/10/22 07:12 Intake & Output 02/09/22 02/10/22 02/10/22 18:59 06:59 18:59 Intake Total 2106.672 871.084 50 Output Total 720 1220 170 Balance 1386.672 -348.916 -120 Weight 78 kg Intake: IV 300 580 50 Cefepime 2 gm In Sodium 100 Chloride 0.9% 100 ml @ 25 mls/hr IVPB Q8HR [facility] Rx# :[id number] Dextrose 5%-0.45% NaCl 1, 100 000 ml @ 100 mls/hr IV . Q10H [facility] Rx#:[id number] Sodium Chloride 0.9% 1, 200 180 50 000 ml @ 50 mls/hr IV . Q20H [facility] Rx#:[id number] Vancomycin 1,250 mg In 250 Sodium Chloride 0.9% 250 ml @ 125 mls/hr IVPB Q12H [facility] Rx#:[id number] cefTRIAXone 2 gm In 50 Sodium Chloride 0.9% 50 ml @ 100 mls/hr IVPB Q12HR [facility] Rx#:[id number] Intake, IV Titration 1496.672 291.084 Amount Vancomycin 1,250 mg In 1250 Sodium Chloride 0.9% 250 ml @ 125 mls/hr IVPB Q12H [facility] Rx#:[id number] cefTRIAXone 2 gm In 50 Sodium Chloride 0.9% 50 ml @ 100 mls/hr IVPB Q12HR [facility] Rx#:[id number] propofoL 1,000 mg In 196.672 291.084 Empty Bag 1 bag @ 10 MCG/ KG/MIN 4.355 mls/hr IV . [id number] [facility] Rx#:[id number] Blood Product 310 Rc As-1 Unit 310 [id number] Output: Gastric Drainage 70 Urine 720 1220 100 Other: Voiding Method Indwelling Catheter Indwelling Catheter # Bowel Movements 1 - Labs CBC & Chem 7: 02/10/22 06:28 08/12/22 06:28 Labs: Abnormal Lab Results - Last 24 Hours (Table) 02/09/22 02/09/22 02/09/22 Range/Units 00:13 07:27 07:27 RBC (3.80-5.40) m/uL Hgb (11.4-16.0) gm/dL Hct (34.0-46.0) % MCV (80.0-100.0) fL MCH (25.0-35.0) pg RDW (11.5-15.5) % Plt Count (150-450) k/uL Lymphocytes # (1.0-4.8) k/uL ABG pH (7.35-7.45) ABG pCO2 (35-45) mmHg ABG pO2 (83-108) mmHg ABG Total CO2 (19-24) mmol/L ABG O2 Saturation (94-97) % Sodium 133 L (137-145) mmol/L Potassium (3.5-5.1) mmol/L Carbon Dioxide (22-30) mmol/L BUN 24 H (7-17) mg/dL Creatinine 1.31 H (0.52-1.04) mg/dL Glucose 188 H (74-99) mg/dL POC Glucose (mg/dL) (70-110) mg/dL Calcium 6.9 L (8.4-10.2) mg/dL Iron 11 L (50-170) ug/dL TIBC 185 L (228-460) ug/dL % Saturation 5.74 L (12.00-45.00) Transferrin 132.0 L (204.0-354.0) mg/dL Alkaline Phosphatase (38-126) U/L Total Protein (6.3-8.2) g/dL Albumin (3.5-5.0) g/dL Procalcitonin (0.02-0.09) ng/mL Crossmatch See Detail 02/09/22 02/09/22 02/09/22 Range/Units 07:27 11:24 17:46 RBC (3.80-5.40) m/uL Hgb (11.4-16.0) gm/dL Hct (34.0-46.0) % MCV (80.0-100.0) fL MCH (25.0-35.0) pg RDW (11.5-15.5) % Plt Count (150-450) k/uL Lymphocytes # (1.0-4.8) k/uL ABG pH (7.35-7.45) ABG pCO2 (35-45) mmHg ABG pO2 (83-108) mmHg ABG Total CO2 (19-24) mmol/L ABG O2 Saturation (94-97) % Sodium (137-145) mmol/L Potassium (3.5-5.1) mmol/L Carbon Dioxide (22-30) mmol/L BUN (7-17) mg/dL Creatinine (0.52-1.04) mg/dL Glucose (74-99) mg/dL POC Glucose (mg/dL) 124 H 118 H (70-110) mg/dL Calcium (8.4-10.2) mg/dL Iron (50-170) ug/dL TIBC (228-460) ug/dL % Saturation (12.00-45.00) Transferrin (204.0-354.0) mg/dL Alkaline Phosphatase (38-126) U/L Total Protein (6.3-8.2) g/dL Albumin (3.5-5.0) g/dL Procalcitonin 10.60 H (0.02-0.09) ng/mL Crossmatch 02/10/22 02/10/22 02/10/22 Range/Units 00:49 05:40 05:50 RBC (3.80-5.40) m/uL Hgb (11.4-16.0) gm/dL Hct (34.0-46.0) % MCV (80.0-100.0) fL MCH (25.0-35.0) pg RDW (11.5-15.5) % Plt Count (150-450) k/uL Lymphocytes # (1.0-4.8) k/uL ABG pH 7.49 H (7.35-7.45) ABG pCO2 32 L (35-45) mmHg ABG pO2 187 H (83-108) mmHg ABG Total CO2 25 H (19-24) mmol/L ABG O2 Saturation 100.0 H (94-97) % Sodium (137-145) mmol/L Potassium (3.5-5.1) mmol/L Carbon Dioxide (22-30) mmol/L BUN (7-17) mg/dL Creatinine (0.52-1.04) mg/dL Glucose (74-99) mg/dL POC Glucose (mg/dL) 133 H 126 H (70-110) mg/dL Calcium (8.4-10.2) mg/dL Iron (50-170) ug/dL TIBC (228-460) ug/dL % Saturation (12.00-45.00) Transferrin (204.0-354.0) mg/dL Alkaline Phosphatase (38-126) U/L Total Protein (6.3-8.2) g/dL Albumin (3.5-5.0) g/dL Procalcitonin (0.02-0.09) ng/mL Crossmatch 02/10/22 02/10/22 Range/Units 06:28 06:28 RBC 3.60 L (3.80-5.40) m/uL Hgb 8.3 L (11.4-16.0) gm/dL Hct 26.4 L (34.0-46.0) % MCV 73.3 L (80.0-100.0) fL MCH 23.0 L (25.0-35.0) pg RDW 22.0 H (11.5-15.5) % Plt Count 92 L (150-450) k/uL Lymphocytes # 0.2 L (1.0-4.8) k/uL ABG pH (7.35-7.45) ABG pCO2 (35-45) mmHg ABG pO2 (83-108) mmHg ABG Total CO2 (19-24) mmol/L ABG O2 Saturation (94-97) % Sodium 136 L (137-145) mmol/L Potassium 3.3 L (3.5-5.1) mmol/L Carbon Dioxide 21 L (22-30) mmol/L BUN 26 H (7-17) mg/dL Creatinine 1.21 H (0.52-1.04) mg/dL Glucose 116 H (74-99) mg/dL POC Glucose (mg/dL) (70-110) mg/dL Calcium 7.2 L (8.4-10.2) mg/dL Iron (50-170) ug/dL TIBC (228-460) ug/dL % Saturation (12.00-45.00) Transferrin (204.0-354.0) mg/dL Alkaline Phosphatase 35 L (38-126) U/L Total Protein 5.4 L (6.3-8.2) g/dL Albumin 2.2 L (3.5-5.0) g/dL Procalcitonin (0.02-0.09) ng/mL Crossmatch Microbiology - Last 24 Hours (Table) 02/09/22 00:13 Blood Culture Gram Stain - Preliminary Blood 02/09/22 00:03 Blood Culture Gram Stain - Preliminary Blood Blood Culture - Preliminary Serratia marcescens 02/09/22 00:03 Blood Culture - Final Blood 02/09/22 00:13 Blood Culture - Final Blood 02/09/22 00:00 Urine Culture - Preliminary Urine,Voided
[2022-02-10 08:32] LABS: C Reactive Protein 17.8 mg/dL (<1.0)
--- NOTE | 2022-02-10 10:37 | P.PN ---
Subjective Progress Note Date: 02/10/22 Principal diagnosis: Aortic valve endocarditis with severe aortic valve regurgitation, Serratia bacteremia, sepsis, acute hypoxic respiratory failure requiring mechanical ventilation, altered mental status, acute anemia, acute kidney injury. Previous history of bacteremia with blood cultures from [facility] positive for Serratia marcescens, recent history of colitis and splenomegaly likely splenic infarct, anxiety, PTSD with history of self mutilation The patient was seen and examined this morning laying in bed still on mechanical ventilation in the intensive care unit. Remains in sinus rhythm, hemodynamically stable on no inotropes or pressors. Ventilator settings adjusted per clothes marker. Blood cultures from February 09 demonstrate continued Serratia marcescens bacteremia. Remains on IV cefepime and vancomycin per infectious disease. CT of the abdomen and pelvis was completed yesterday at the recommendation of Gen. surgery demonstrating cardiomegaly, pleural effusions, atelectasis, moderately severe hepatosplenomegaly with enlarged kidneys, no colitis, and mild free fluid in the pelvis. The patient was seen and examined yesterday by Dr. Townsend, he did have a lengthy discussion with the parents, there are no plans for surgical aortic valve replacement from our standpoint while blood cultures remain positive. Objective - Vital Signs Vital signs: Vital Signs Temp 98.4 F 02/10/22 06:30 Pulse 99 02/10/22 07:00 Resp 30 H 02/10/22 07:00 BP 131/63 02/10/22 07:00 Pulse Ox 99 02/10/22 07:00 FiO2 40 02/10/22 07:12 Intake & Output 02/09/22 02/10/22 02/10/22 18:59 06:59 18:59 Intake Total 2106.672 871.084 50 Output Total 720 1220 170 Balance 1386.672 -348.916 -120 Weight 78 kg Intake: IV 300 580 50 Cefepime 2 gm In Sodium 100 Chloride 0.9% 100 ml @ 25 mls/hr IVPB Q8HR [facility] Rx# :[id number] Dextrose 5%-0.45% NaCl 1, 100 000 ml @ 100 mls/hr IV . Q10H [facility] Rx#:[id number] Sodium Chloride 0.9% 1, 200 180 50 000 ml @ 50 mls/hr IV . Q20H [facility] Rx#:[id number] Vancomycin 1,250 mg In 250 Sodium Chloride 0.9% 250 ml @ 125 mls/hr IVPB Q12H [facility] Rx#:[id number] cefTRIAXone 2 gm In 50 Sodium Chloride 0.9% 50 ml @ 100 mls/hr IVPB Q12HR [facility] Rx#:[id number] Intake, IV Titration 1496.672 291.084 Amount Vancomycin 1,250 mg In 1250 Sodium Chloride 0.9% 250 ml @ 125 mls/hr IVPB Q12H [facility] Rx#:[id number] cefTRIAXone 2 gm In 50 Sodium Chloride 0.9% 50 ml @ 100 mls/hr IVPB Q12HR [facility] Rx#:[id number] propofoL 1,000 mg In 196.672 291.084 Empty Bag 1 bag @ 10 MCG/ KG/MIN 4.355 mls/hr IV . [id number] [facility] Rx#:[id number] Blood Product 310 Rc As-1 Unit 310 [id number] Output: Gastric Drainage 70 Urine 720 1220 100 Other: Voiding Method Indwelling Catheter Indwelling Catheter # Bowel Movements 1 1 - Exam CONSTITUTIONAL: Remains sedated on mechanical ventilation RESPIRATORY: Lungs sounds coarse in the bases. Respirations even, nonlabored. Currently on assist control mode, FiO2 40%, PEEP 5, tidal volume 350, respi ratory rate 16. 7.5 ET tube present, 24 at the lip CARDIOVASCULAR: S1, S2 present. Regular rate and rhythm, sinus rhythm on telemetry. Palpable peripheral pulses bilaterally. No edema present. No calf pain or tenderness noted. GASTROINTESTINAL: Abdomen soft, nontender, nondistended. Active bowel sounds present 4 quadrants. OG tube present draining minimal clear brown liquid GENITOURINARY: [place] present draining clear, yellow urine. Output overnight 100-125 mL per hour INTEGUMENTARY: Skin is warm and dry NEUROLOGIC: Remains sedated with propofol on mechanical ventilation - Allied health notes Allied health notes reviewed: nursing - Labs CBC & Chem 7: 02/10/22 06:28 02/10/22 06:28 Labs: Abnormal Lab Results - Last 24 Hours (Table) 02/09/22 02/09/22 02/09/22 Range/Units 00:13 07:27 07:27 RBC (3.80-5.40) m/uL Hgb (11.4-16.0) gm/dL Hct (34.0-46.0) % MCV (80.0-100.0) fL MCH (25.0-35.0) pg RDW (11.5-15.5) % Plt Count (150-450) k/uL Lymphocytes # (1.0-4.8) k/uL ABG pH (7.35-7.45) ABG pCO2 (35-45) mmHg ABG pO2 (83-108) mmHg ABG Total CO2 (19-24) mmol/L ABG O2 Saturation (94-97) % Sodium (137-145) mmol/L Potassium (3.5-5.1) mmol/L Carbon Dioxide (22-30) mmol/L BUN (7-17) mg/dL Creatinine (0.52-1.04) mg/dL Glucose (74-99) mg/dL POC Glucose (mg/dL) (70-110) mg/dL Calcium (8.4-10.2) mg/dL Iron 11 L (50-170) ug/dL TIBC 185 L (228-460) ug/dL % Saturation 5.74 L (12.00-45.00) Transferrin 132.0 L (204.0-354.0) mg/dL Alkaline Phosphatase (38-126) U/L C-Reactive Protein (<1.0) mg/dL Total Protein (6.3-8.2) g/dL Albumin (3.5-5.0) g/dL Procalcitonin 10.60 H (0.02-0.09) ng/mL Crossmatch See Detail 02/09/22 02/09/22 02/10/22 Range/Units 11:24 17:46 00:49 RBC (3.80-5.40) m/uL Hgb (11.4-16.0) gm/dL Hct (34.0-46.0) % MCV (80.0-100.0) fL MCH (25.0-35.0) pg RDW (11.5-15.5) % Plt Count (150-450) k/uL Lymphocytes # (1.0-4.8) k/uL ABG pH (7.35-7.45) ABG pCO2 (35-45) mmHg ABG pO2 (83-108) mmHg ABG Total CO2 (19-24) mmol/L ABG O2 Saturation (94-97) % Sodium (137-145) mmol/L Potassium (3.5-5.1) mmol/L Carbon Dioxide (22-30) mmol/L BUN (7-17) mg/dL Creatinine (0.52-1.04) mg/dL Glucose (74-99) mg/dL POC Glucose (mg/dL) 124 H 118 H 133 H (70-110) mg/dL Calcium (8.4-10.2) mg/dL Iron (50-170) ug/dL TIBC (228-460) ug/dL % Saturation (12.00-45.00) Transferrin (204.0-354.0) mg/dL Alkaline Phosphatase (38-126) U/L C-Reactive Protein (<1.0) mg/dL Total Protein (6.3-8.2) g/dL Albumin (3.5-5.0) g/dL Procalcitonin (0.02-0.09) ng/mL Crossmatch 02/10/22 02/10/22 02/10/22 Range/Units 05:40 05:50 06:28 RBC 3.60 L (3.80-5.40) m/uL Hgb 8.3 L (11.4-16.0) gm/dL Hct 26.4 L (34.0-46.0) % MCV 73.3 L (80.0-100.0) fL MCH 23.0 L (25.0-35.0) pg RDW 22.0 H (11.5-15.5) % Plt Count 92 L (150-450) k/uL Lymphocytes # 0.2 L (1.0-4.8) k/uL ABG pH 7.49 H (7.35-7.45) ABG pCO2 32 L (35-45) mmHg ABG pO2 187 H (83-108) mmHg ABG Total CO2 25 H (19-24) mmol/L ABG O2 Saturation 100.0 H (94-97) % Sodium (137-145) mmol/L Potassium (3.5-5.1) mmol/L Carbon Dioxide (22-30) mmol/L BUN (7-17) mg/dL Creatinine (0.52-1.04) mg/dL Glucose (74-99) mg/dL POC Glucose (mg/dL) 126 H (70-110) mg/dL Calcium (8.4-10.2) mg/dL Iron (50-170) ug/dL TIBC (228-460) ug/dL % Saturation (12.00-45.00) Transferrin (204.0-354.0) mg/dL Alkaline Phosphatase (38-126) U/L C-Reactive Protein (<1.0) mg/dL Total Protein (6.3-8.2) g/dL Albumin (3.5-5.0) g/dL Procalcitonin (0.02-0.09) ng/mL Crossmatch 02/10/22 Range/Units 06:28 RBC (3.80-5.40) m/uL Hgb (11.4-16.0) gm/dL Hct (34.0-46.0) % MCV (80.0-100.0) fL MCH (25.0-35.0) pg RDW (11.5-15.5) % Plt Count (150-450) k/uL Lymphocytes # (1.0-4.8) k/uL ABG pH (7.35-7.45) ABG pCO2 (35-45) mmHg ABG pO2 (83-108) mmHg ABG Total CO2 (19-24) mmol/L ABG O2 Saturation (94-97) % Sodium 136 L (137-145) mmol/L Potassium 3.3 L (3.5-5.1) mmol/L Carbon Dioxide 21 L (22-30) mmol/L BUN 26 H (7-17) mg/dL Creatinine 1.21 H (0.52-1.04) mg/dL Glucose 116 H (74-99) mg/dL POC Glucose (mg/dL) (70-110) mg/dL Calcium 7.2 L (8.4-10.2) mg/dL Iron (50-170) ug/dL TIBC (228-460) ug/dL % Saturation (12.00-45.00) Transferrin (204.0-354.0) mg/dL Alkaline Phosphatase 35 L (38-126) U/L C-Reactive Protein 17.8 H (<1.0) mg/dL Total Protein 5.4 L (6.3-8.2) g/dL Albumin 2.2 L (3.5-5.0) g/dL Procalcitonin (0.02-0.09) ng/mL Crossmatch Microbiology - Last 24 Hours (Table) 02/09/22 00:13 Blood Culture Gram Stain - Preliminary Blood 02/09/22 00:03 Blood Culture Gram Stain - Preliminary Blood Blood Culture - Preliminary Serratia marcescens 02/09/22 00:03 Blood Culture - Final Blood 02/09/22 00:13 Blood Culture - Final Blood 02/09/22 00:00 Urine Culture - Preliminary Urine,Voided - Imaging and Cardiology Chest x-ray: report reviewed, image reviewed Assessment and Plan Assessment: 1. Aortic valve endocarditis with severe aortic valve regurgitation 2. Serratia bacteremia, sepsis 3. Acute hypoxic respiratory failure requiring mechanical ventilation 4. Altered mental status this admission 5. Acute on chronic anemia, status post blood transfusion 6. Acute kidney injury 7. Recent history of colitis and splenomegaly likely splenic infarct 8. History of anxiety 9. PTSD with history of self mutilation Plan: 1. No emergent surgical aortic valve replacement at this time due to positive blood cultures 2. Continue antibiotics as directed by infectious disease 3. Mechanical ventilator management per clothes marker 4. Continue to follow blood cultures, chest x-ray, labs 5. Continue supportive care 6. Management of other comorbidities per internal medicine, cardiology, Gen. surgery
[2022-02-10 11:55] LABS: Glucose,Whole Blood 116 mg/dL (70-110)
[2022-02-10] MEDS ORDERED: ACETAMINOPHEN IV (For NPO) 1,000 MG in EMPTY BAG 1 BAG IVPB PRN (12:41)
--- NOTE | 2022-02-10 13:50 | P.PN ---
Subjective Progress Note Date: 02/10/22 Principal diagnosis: Colitis Patient remains on the ventilator. She is sedated although less so than yesterday. Her parents are at the bedside. Plans are underway currently for transfer to [facility]. Her CAT scan was reviewed. Mild thickening of the rectum and sigmoid is noted however this may be related to decompression. Objective - Vital Signs Vital signs: Vital Signs Temp 98.5 F 02/10/22 12:00 Pulse 98 02/10/22 13:00 Resp 18 02/10/22 13:00 BP 133/68 02/10/22 13:00 Pulse Ox 99 02/10/22 13:00 FiO2 40 02/10/22 12:00 Intake & Output 02/09/22 02/10/22 02/10/22 18:59 06:59 18:59 Intake Total 2106.672 871.084 455.278 Output Total 720 1220 995 Balance 1386.672 -348.916 -539.722 Weight 78 kg 78 kg Intake: IV 300 580 270 Cefepime 2 gm In Sodium 100 100 Chloride 0.9% 100 ml @ 25 mls/hr IVPB Q8HR [facility] Rx# :[id number] Dextrose 5%-0.45% NaCl 1, 100 000 ml @ 100 mls/hr IV . Q10H [facility] Rx#:[id number] Sodium Chloride 0.9% 1, 200 180 170 000 ml @ 20 mls/hr IV . Q24H [facility] Rx#:[id number] Vancomycin 1,250 mg In 250 Sodium Chloride 0.9% 250 ml @ 125 mls/hr IVPB Q12H [facility] Rx#:[id number] cefTRIAXone 2 gm In 50 Sodium Chloride 0.9% 50 ml @ 100 mls/hr IVPB Q12HR [facility] Rx#:[id number] Intake, IV Titration 1496.672 291.084 185.278 Amount ACETAMINOPHEN IV (For NPO 100 ) 1,000 mg In Empty Bag 1 bag @ 400 mls/hr IVPB Q6HR [facility] Rx#:[id number] Vancomycin 1,250 mg In 1250 Sodium Chloride 0.9% 250 ml @ 125 mls/hr IVPB Q12H [facility] Rx#:[id number] cefTRIAXone 2 gm In 50 Sodium Chloride 0.9% 50 ml @ 100 mls/hr IVPB Q12HR [facility] Rx#:[id number] propofoL 1,000 mg In 196.672 291.084 85.278 Empty Bag 1 bag @ 10 MCG/ KG/MIN 4.355 mls/hr IV . [id number] [facility] Rx#:[id number] Blood Product 310 Rc As-1 Unit 310 [id number] Output: Gastric Drainage 70 Urine 720 1220 925 Other: Voiding Method Indwelling Catheter Indwelling Catheter Indwelling Catheter # Bowel Movements 1 1 - Exam Abdomen: Soft, nontender, nondistended - Labs CBC & Chem 7: 02/10/22 06:28 02/10/22 06:28 Labs: Abnormal Lab Results - Last 24 Hours (Table) 02/09/22 02/09/22 02/10/22 Range/Units 00:13 17:46 00:49 RBC (3.80-5.40) m/uL Hgb (11.4-16.0) gm/dL Hct (34.0-46.0) % MCV (80.0-100.0) fL MCH (25.0-35.0) pg RDW (11.5-15.5) % Plt Count (150-450) k/uL Lymphocytes # (1.0-4.8) k/uL ABG pH (7.35-7.45) ABG pCO2 (35-45) mmHg ABG pO2 (83-108) mmHg ABG Total CO2 (19-24) mmol/L ABG O2 Saturation (94-97) % Sodium (137-145) mmol/L Potassium (3.5-5.1) mmol/L Carbon Dioxide (22-30) mmol/L BUN (7-17) mg/dL Creatinine (0.52-1.04) mg/dL Glucose (74-99) mg/dL POC Glucose (mg/dL) 118 H 133 H (70-110) mg/dL Calcium (8.4-10.2) mg/dL Alkaline Phosphatase (38-126) U/L C-Reactive Protein (<1.0) mg/dL Total Protein (6.3-8.2) g/dL Albumin (3.5-5.0) g/dL Procalcitonin (0.02-0.09) ng/mL Crossmatch See Detail 02/10/22 02/10/2222 Range/Units 05:40 05:50 06:28 RBC (3.80-5.40) m/uL Hgb (11.4-16.0) gm/dL Hct (34.0-46.0) % MCV (80.0-100.0) fL MCH (25.0-35.0) pg RDW (11.5-15.5) % Plt Count (150-450) k/uL Lymphocytes # (1.0-4.8) k/uL ABG pH 7.49 H (7.35-7.45) ABG pCO2 32 L (35-45) mmHg ABG pO2 187 H (83-108) mmHg ABG Total CO2 25 H (19-24) mmol/L ABG O2 Saturation 100.0 H (94-97) % Sodium (137-145) mmol/L Potassium (3.5-5.1) mmol/L Carbon Dioxide (22-30) mmol/L BUN (7-17) mg/dL Creatinine (0.52-1.04) mg/dL Glucose (74-99) mg/dL POC Glucose (mg/dL) 126 H (70-110) mg/dL Calcium (8.4-10.2) mg/dL Alkaline Phosphatase (38-126) U/L C-Reactive Protein (<1.0) mg/dL Total Protein (6.3-8.2) g/dL Albumin (3.5-5.0) g/dL Procalcitonin 7.18 H (0.02-0.09) ng/mL Crossmatch 02/10/22 02/10/22 02/10/22 Range/Units 06:28 06:28 11:52 RBC 3.60 L (3.80-5.40) m/uL Hgb 8.3 L (11.4-16.0) gm/dL Hct 26.4 L (34.0-46.0) % MCV 73.3 L (80.0-100.0) fL MCH 23.0 L (25.0-35.0) pg RDW 22.0 H (11.5-15.5) % Plt Count 92 L (150-450) k/uL Lymphocytes # 0.2 L (1.0-4.8) k/uL ABG pH (7.35-7.45) ABG pCO2 (35-45) mmHg ABG pO2 (83-108) mmHg ABG Total CO2 (19-24) mmol/L ABG O2 Saturation (94-97) % Sodium 136 L (137-145) mmol/L Potassium 3.3 L (3.5-5.1) mmol/L Carbon Dioxide 21 L (22-30) mmol/L BUN 26 H (7-17) mg/dL Creatinine 1.21 H (0.52-1.04) mg/dL Glucose 116 H (74-99) mg/dL POC Glucose (mg/dL) 116 H (70-110) mg/dL Calcium 7.2 L (8.4-10.2) mg/dL Alkaline Phosphatase 35 L (38-126) U/L C-Reactive Protein 17.8 H (<1.0) mg/dL Total Protein 5.4 L (6.3-8.2) g/dL Albumin 2.2 L (3.5-5.0) g/dL Procalcitonin (0.02-0.09) ng/mL Crossmatch Microbiology - Last 24 Hours (Table) 02/09/22 10:13 Blood Culture - Preliminary Blood No Growth after 24 hours 02/09/22 00:00 Urine Culture - Final Urine,Voided 02/09/22 00:13 Blood Culture Gram Stain - Preliminary Blood 02/09/22 00:03 Blood Culture Gram Stain - Preliminary Blood Blood Culture - Preliminary Serratia marcescens 02/09/22 00:03 Blood Culture - Final Blood 02/09/22 00:13 Blood Culture - Final Blood Assessment and Plan (1) Colitis Narrative/Plan: Patient with gram-negative bacteremia and atrial valve that stations. Continue antibiotics per infectious disease. Agree with plans for transfer to tertiary care center for further cardiothoracic evaluation. Current Visit: Yes Status: Acute Code(s): K52.9 - NONINFECTIVE GASTROENTERITIS AND COLITIS, UNSPECIFIED SNOMED Code(s): 38081120
--- NOTE | 2022-02-10 14:10 | P.PN ---
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 Note that no records are available regarding this most recent hospitalization. The patient was quite sick and she presented to the emergency department with acute respiratory failure and she was found to be in pulmonary edema, immediately intubated and placed on a mechanical ventilator. Patient accordingly was transferred to the intensive care unit for further workup. Note that, a CAT scan of the brain that was done in the emergency along with a CAT scan of the cervical spine were negative. Unfortunately, no documentation unavailable from our emergency department regarding the details of the treatment and her presentation. I was involved in this patient's care and I saw her in the intensive care unit. She was already on propofol and she wasn't well sedated and Profore was running at 35 mcg/kg per minute. At the same time, the patient was in the mechanical ventilator on assist control mode at the rate of 16 with a tidal volume of 350 and FiO2 of 40% with a PEEP of 5. I saw the morning blood gases showed a pH of 7.44 with a pCO2 of 37 and pO2 159 and this was done and FiO2 of 50%. The patient had a proBNP level of 33,000, the patient's white cell count was 7.3 with hemoglobin of 8.3 after being transfused with a total of 2 units of packed RBC 4 hemoglobin of 6.9. The platelet count was 135. The patient also developed an acute kidney injury in the creatinine was up to 1.3. The patient had a troponin level of 0.37. No pressors were utilized overnight. On examination, the patient had a holosystolic murmur and a Echocardiogram showed moderate degree of aortic regurgitation with mitral stenosis and there was an echodense lesion attached to the aortic leaflets consistent with vegetation. Immediately cardiology was involved and the patient was given a WADE that confirmed the presence of infective endocarditis and the patient evidence of vegetation of the aortic valve with severe aortic regurgitation and normal appearing mitral valve and normal ejection fraction. The patient was already given a combination of vancomycin and Rocephin. The permanent blood cultures are showing gram-negative bacillus. currently she is well sedated and the patient is calm and comfortable on no pressors. 02/10 2022, patient is being seen for a follow-up. The patient's critically ill and the patient is in the intensive care unit for now intubated on a mechanical ventilator. Based on the records from [facility], the patient was hospitalized there for diarrhea and abdominal pain and the patient was found to be septic with Serratia marcescens. The patient was discharged home after being given a combination of Flagyl and Cipro. Note that echocardiogram wasn't at that time and there was no evidence of any vegetation and there was mild aortic regurgitation. The patient also has undergone further workup including CAT scan of the abdomen that showed splenic infarct. The patient currently is septic with the same microorganism. Blood cultures positive for Serratia. The patient is currently on IV cefepime. At the same time, the patient remains intubated on mechanical ventilator. This morning, the patient remains off of 50 mg/kg per minute and the patient is also well sedated on mechanical ventilator on assist control mode at the rate of 16 with tidal volume of a 50 FiO2 of 40% with a PEEP of 5. Blood gases showed a pH of 7.49 with a pCO2 of 33 and pO2 187. Chest x-ray shows residual interstitial edema bilaterally more so on the right and the patient has an adequate positioning of the orotracheal tube. The patient is on no pressors. She is hemodynamic is stable. Once it was at 4.7 with a hemoglobin of 8.3 and a platelet count of 92. The sodium is at 136 with a mean of 26 and a creatinine of 1.2. The patient is currently on normal saline at rate of 20 mL an hour. No other significant issues for now. Discussed the case with the cardiothoracic team and cardiology. The patient is being considered to be transferred to a tertiary care center regarding the complexity of her infective endocarditis. Meanwhile, the patient was also seen by general surgery. CAT scan of the abdomen was also done that showed no acute abnormalities. The patient was found to have some atelectatic changes small bilateral pleural effusion lung bases. This tonic infarct was not seen. There was no acute intra-abdominal abnormalities of colitis seen on repeat CAT scan of the abdomen. No intra-abdominal abscesses. Objective - Vital Signs Vital signs: Vital Signs Temp 98.5 F 02/10/22 12:00 Pulse 98 02/10/22 13:00 Resp 18 02/10/22 13:00 BP 133/68 02/10/22 13:00 Pulse Ox 99 02/10/22 13:00 FiO2 40 02/10/22 12:00 Intake & Output 02/09/22 02/10/22 02/10/22 18:59 06:59 18:59 Intake Total 2106.672 871.084 455.278 Output Total 720 1220 995 Balance 1386.672 -348.916 -539.722 Weight 78 kg 78 kg Intake: IV 300 580 270 Cefepime 2 gm In Sodium 100 100 Chloride 0.9% 100 ml @ 25 mls/hr IVPB Q8HR [facility] Rx# :[id number] Dextrose 5%-0.45% NaCl 1, 100 000 ml @ 100 mls/hr IV . Q10H [facility] Rx#:[id number] Sodium Chloride 0.9% 1, 200 180 170 000 ml @ 20 mls/hr IV . Q24H [facility] Rx#:[id number] Vancomycin 1,250 mg In 250 Sodium Chloride 0.9% 250 ml @ 125 mls/hr IVPB Q12H [facility] Rx#:[id number] cefTRIAXone 2 gm In 50 Sodium Chloride 0.9% 50 ml @ 100 mls/hr IVPB Q12HR [facility] Rx#:[id number] Intake, IV Titration 1496.672 291.084 185.278 Amount ACETAMINOPHEN IV (For NPO 100 ) 1,000 mg In Empty Bag 1 bag @ 400 mls/hr IVPB Q6HR [facility] Rx#:[id number] Vancomycin 1,250 mg In 1250 Sodium Chloride 0.9% 250 ml @ 125 mls/hr IVPB Q12H [facility] Rx#:[id number] cefTRIAXone 2 gm In 50 Sodium Chloride 0.9% 50 ml @ 100 mls/hr IVPB Q12HR [facility] Rx#:[id number] propofoL 1,000 mg In 196.672 291.084 85.278 Empty Bag 1 bag @ 10 MCG/ KG/MIN 4.355 mls/hr IV . [id number] [facility] Rx#:[id number] Blood Product 310 Rc As-1 Unit 310 [id number] Output: Gastric Drainage 70 Urine 720 1220 925 Other: Voiding Method Indwelling Catheter Indwelling Catheter Indwelling Catheter # Bowel Movements 1 1 - Exam Is intubated on mechanical ventilator, orotracheal and orogastric tube are both in place Head exam was generally normal. There was no scleral icterus or corneal arcus. Mucous membranes were moist. Neck was supple and with jugular venous distension, thyromegaly, or carotid bruits. Carotids were easily palpable bilaterally. There was no adenopathy.. The patient has positive JVDs. No goiter or neck masses. Examination of the heart revealed a harsh systolic murmur, pansystolic easily heard over the precordium especially in the left apex and left lower leg. Lungs were clear to auscultation and percussion, and with normal diaphragmatic e xcursion. No wheezes or rales were noted. Abdominal exam revealed normal bowel sounds. The abdomen was soft, non-tender, and without masses, organomegaly, or appreciable enlargement of the abdominal aorta. Examination of the extremities revealed easily palpable radial, femoral and pedal pulses. There was no cyanosis, clubbing or edema. Examination of the skin revealed no evidence of significant rashes, suspicious appearing nevi or other concerning lesions. Neurologically, the patient is awake and alert and the patient does not have any focal neurological deficit. Cranial nerves are essentially intact. - Labs CBC & Chem 7: 02/10/22 06:28 02/10/22 06:28 Labs: Abnormal Lab Results - Last 24 Hours (Table) 02/09/22 02/09/22 02/10/22 Range/Units 00:13 17:46 00:49 RBC (3.80-5.40) m/uL Hgb (11.4-16.0) gm/dL Hct (34.0-46.0) % MCV (80.0-100.0) fL MCH (25.0-35.0) pg RDW (11.5-15.5) % Plt Count (150-450) k/uL Lymphocytes # (1.0-4.8) k/uL ABG pH (7.35-7.45) ABG pCO2 (35-45) mmHg ABG pO2 (83-108) mmHg ABG Total CO2 (19-24) mmol/L ABG O2 Saturation (94-97) % Sodium (137-145) mmol/L Potassium (3.5-5.1) mmol/L Carbon Dioxide (22-30) mmol/L BUN (7-17) mg/dL Creatinine (0.52-1.04) mg/dL Glucose (74-99) mg/dL POC Glucose (mg/dL) 118 H 133 H (70-110) mg/dL Calcium (8.4-10.2) mg/dL Alkaline Phosphatase (38-126) U/L C-Reactive Protein (<1.0) mg/dL Total Protein (6.3-8.2) g/dL Albumin (3.5-5.0) g/dL Procalcitonin (0.02-0.09) ng/mL Crossmatch See Detail 02/10/22 02/10/22 02/10/22 Range/Units 05:40 05:50 06:28 RBC (3.80-5.40) m/uL Hgb (11.4-16.0) gm/dL Hct (34.0-46.0) % MCV (80.0-100.0) fL MCH (25.0-35.0) pg RDW (11.5-15.5) % Plt Count (150-450) k/uL Lymphocytes # (1.0-4.8) k/uL ABG pH 7.49 H (7.35-7.45) ABG pCO2 32 L (35-45) mmHg ABG pO2 187 H (83-108) mmHg ABG Total CO2 25 H (19-24) mmol/L ABG O2 Saturation 100.0 H (94-97) % Sodium (137-145) mmol/L Potassium (3.5-5.1) mmol/L Carbon Dioxide (22-30) mmol/L BUN (7-17) mg/dL Creatinine (0.52-1.04) mg/dL Glucose (74-99) mg/dL POC Glucose (mg/dL) 126 H (70-110) mg/dL Calcium (8.4-10.2) mg/dL Alkaline Phosphatase (38-126) U/L C-Reactive Protein (<1.0) mg/dL Total Protein (6.3-8.2) g/dL Albumin (3.5-5.0) g/dL Procalcitonin 7.18 H (0.02-0.09) ng/mL Crossmatch 02/10/22 02/10/22 02/10/22 Range/Units 06:28 06:28 11:52 RBC 3.60 L (3.80-5.40) m/uL Hgb 8.3 L (11.4-16.0) gm/dL Hct 26.4 L (34.0-46.0) % MCV 73.3 L (80.0-100.0) fL MCH 23.0 L (25.0-35.0) pg RDW 22.0 H (11.5-15.5) % Plt Count 92 L (150-450) k/uL Lymphocytes # 0.2 L (1.0-4.8) k/uL ABG pH (7.35-7.45) ABG pCO2 (35-45) mmHg ABG pO2 (83-108) mmHg ABG Total CO2 (19-24) mmol/L ABG O2 Saturation (94-97) % Sodium 136 L (137-145) mmol/L Potassium 3.3 L (3.5-5.1) mmol/L Carbon Dioxide 21 L (22-30) mmol/L BUN 26 H (7-17) mg/dL Creatinine 1.21 H (0.52-1.04) mg/dL Glucose 116 H (74-99) mg/dL POC Glucose (mg/dL) 116 H (70-110) mg/dL Calcium 7.2 L (8.4-10.2) mg/dL Alkaline Phosphatase 35 L (38-126) U/L C-Reactive Protein 17.8 H (<1.0) mg/dL Total Protein 5.4 L (6.3-8.2) g/dL Albumin 2.2 L (3.5-5.0) g/dL Procalcitonin (0.02-0.09) ng/mL Crossmatch Microbiology - Last 24 Hours (Table) 02/09/22 10:13 Blood Culture - Preliminary Blood No Growth after 24 hours 02/09/22 00:00 Urine Culture - Final Urine,Voided 02/09/22 00:13 Blood Culture Gram Stain - Preliminary Blood 02/09/22 00:03 Blood Culture Gram Stain - Preliminary Blood Blood Culture - Preliminary Serratia marcescens 02/09/22 00:03 Blood Culture - Final Blood 02/09/22 00:13 Blood Culture - Final Blood Assessment and Plan Plan: 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 The patient was also bacteremic and septic on a previous hospitalization [facility] with the same microorganism. At that time, the patient mild aortic regurgitation without any significant vegetations seen on echocardiogram. Sepsis secondary to Serratia marcescens and infective endocarditis. CAT scan of the abdomen showed neck is on Altace. Acute severe aortic regurgitation secondary to infective endocarditis Acute pulmonary edema secondary to above, improving as the patient has been diuresed over the past 24 hours. Adequate oxygenation at this point in time. Distal residual interstitial edema. Acute hypoxic respiratory failure secondary to above currently intubated on a mechanical ventilator, improvement in the oxygenation Acute on chronic anemia, hemoglobin was 6.9 and the patient was given a total of 2 units of packed RBCs Altered mentation probably related to metabolic encephalopathy. CAT scan of the brain is negative, currently sedated on propofol Acute kidney injury, possibly due to sepsis/infective endocarditis. 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 Splenic infarct probably related to septic embolism Questionable IV drug use Plan Keep the patient on mechanical ventilator for now Continue IV cefepime for now discontinue vancomycin WADE was noted Echocardiogram was noted IV fluids at 20 mL an hour Keep the patient sedated with propofol Consult cardiology consult cardiothoracic surgery High-risk patient, may need to be transferred to a tertiary care center for further evaluation of the aortic valve, possible aortic valve surgery Initiate tube feeds Transfer this patient to a tertiary care center and the centers that we are looking looking into our [facility] and [facility]. This is a critically care evaluation was done and more than 30 minutes. had a lengthy discussion with the family including the mother and the father and updated them on her condition Time with Patient: Greater than 30
[2022-02-10 14:26] LABS: Anisocytosis Moderate; HCT 21.4 % (34.0-46.0); Hypochromasia Marked; MCH 22.4 pg (25.0-35.0); MCHC 30.5 g/dL (31.0-37.0); MCV 73.5 fL (80.0-100.0); Mean Platelet Volume 7.7; Microcytosis Marked; Poikilocytosis Moderate; RBC 2.91 m/uL (3.80-5.40); WBC 3.3 k/uL (3.8-10.6)
[2022-02-10 14:32] LABS: HGB 6.5 gm/dL (11.4-16.0)
[2022-02-10 14:33] LABS: Platelet Count 98 k/uL (150-450)
--- NOTE | 2022-02-10 15:43 | P.PN ---
Subjective Progress Note Date: 02/10/22 Principal diagnosis: Gram-negative bacteremia and aortic valve endocarditis Patient is a 36 year female presenting to the hospital with acute respiratory failure in this patient to have evidence of gram-negative bacteremia and there was concern for vegetation on the aortic valve on today's evaluation that is 02/10/2022, the patient is afebrile this morning, the patient is hemodynamically stable not requiring any pressor support, the patient affect is currently stable at 40% FiO2 no significant purulent secretion through the ET or diarrhea reported by the nursing staff Objective - Vital Signs Vital signs: Vital Signs Temp 98.5 F 02/10/22 12:00 Pulse 97 02/10/22 12:30 Resp 22 02/10/22 12:30 BP 127/55 02/10/22 12:30 Pulse Ox 100 02/10/22 12:30 FiO2 40 02/10/22 12:00 Intake & Output 02/09/22 02/10/22 02/10/22 18:59 06:59 18:59 Intake Total 2106.672 871.084 335.278 Output Total 720 1220 645 Balance 1386.672 -348.916 -309.722 Weight 78 kg 78 kg Intake: IV 300 580 250 Cefepime 2 gm In Sodium 100 100 Chloride 0.9% 100 ml @ 25 mls/hr IVPB Q8HR [facility] Rx# :[id number] Dextrose 5%-0.45% NaCl 1, 100 000 ml @ 100 mls/hr IV . Q10H [facility] Rx#:[id number] Sodium Chloride 0.9% 1, 200 180 150 000 ml @ 20 mls/hr IV . Q24H [facility] Rx#:[id number] Vancomycin 1,250 mg In 250 Sodium Chloride 0.9% 250 ml @ 125 mls/hr IVPB Q12H [facility] Rx#:[id number] cefTRIAXone 2 gm In 50 Sodium Chloride 0.9% 50 ml @ 100 mls/hr IVPB Q12HR [facility] Rx#:[id number] Intake, IV Titration 1496.672 291.084 85.278 Amount Vancomycin 1,250 mg In 1250 Sodium Chloride 0.9% 250 ml @ 125 mls/hr IVPB Q12H [facility] Rx#:[id number] cefTRIAXone 2 gm In 50 Sodium Chloride 0.9% 50 ml @ 100 mls/hr IVPB Q12HR [facility] Rx#:[id number] propofoL 1,000 mg In 196.672 291.084 85.278 Empty Bag 1 bag @ 10 MCG/ KG/MIN 4.355 mls/hr IV . [id number] [facility] Rx#:[id number] Blood Product 310 Rc As-1 Unit 310 [id number] Output: Gastric Drainage 70 Urine 720 1220 575 Other: Voiding Method Indwelling Catheter Indwelling Catheter Indwelling Catheter # Bowel Movements 1 1 - Exam GENERAL DESCRIPTION: Middle-aged female intubated on the vent RESPIRATORY SYSTEM: Unlabored breathing , decreased breath sounds at bases HEART: S1 S2 regular rate and rhythm , ABDOMEN: Soft , no tenderness EXTREMITIES: No edema feet - Labs CBC & Chem 7: 02/10/22 13:33 02/10/22 06:28 Labs: Abnormal Lab Results - Last 24 Hours (Table) 02/09/22 02/09/22 02/10/22 Range/Units 00:13 17:46 00:49 RBC (3.80-5.40) m/uL Hgb (11.4-16.0) gm/dL Hct (34.0-46.0) % MCV (80.0-100.0) fL MCH (25.0-35.0) pg RDW (11.5-15.5) % Plt Count (150-450) k/uL Lymphocytes # (1.0-4.8) k/uL ABG pH (7.35-7.45) ABG pCO2 (35-45) mmHg ABG pO2 (83-108) mmHg ABG Total CO2 (19-24) mmol/L ABG O2 Saturation (94-97) % Sodium (137-145) mmol/L Potassium (3.5-5.1) mmol/L Carbon Dioxide (22-30) mmol/L BUN (7-17) mg/dL Creatinine (0.52-1.04) mg/dL Glucose (74-99) mg/dL POC Glucose (mg/dL) 118 H 133 H (70-110) mg/dL Calcium (8.4-10.2) mg/dL Alkaline Phosphatase (38-126) U/L C-Reactive Protein (<1.0) mg/dL Total Protein (6.3-8.2) g/dL Albumin (3.5-5.0) g/dL Procalcitonin (0.02-0.09) ng/mL Crossmatch See Detail 02/10/22 02/10/22 02/10/22 Range/Units 05:40 05:50 06:28 RBC (3.80-5.40) m/uL Hgb (11.4-16.0) gm/dL Hct (34.0-46.0) % MCV (80.0-100.0) fL MCH (25.0-35.0) pg RDW (11.5-15.5) % Plt Count (150-450) k/uL Lymphocytes # (1.0-4.8) k/uL ABG pH 7.49 H (7.35-7.45) ABG pCO2 32 L (35-45) mmHg ABG pO2 187 H (83-108) mmHg ABG Total CO2 25 H (19-24) mmol/L ABG O2 Saturation 100.0 H (94-97) % Sodium (137-145) mmol/L Potassium (3.5-5.1) mmol/L Carbon Dioxide (22-30) mmol/L BUN (7-17) mg/dL Creatinine (0.52-1.04) mg/dL Glucose (74-99) mg/dL POC Glucose (mg/dL) 126 H (70-110) mg/dL Calcium (8.4-10.2) mg/dL Alkaline Phosphatase (38-126) U/L C-Reactive Protein (<1.0) mg/dL Total Protein (6.3-8.2) g/dL Albumin (3.5-5.0) g/dL Procalcitonin 7.18 H (0.02-0.09) ng/mL Crossmatch 02/10/22 02/10/22 02/10/22 Range/Units 06:28 06:28 11:52 RBC 3.60 L (3.80-5.40) m/uL Hgb 8.3 L (11.4-16.0) gm/dL Hct 26.4 L (34.0-46.0) % MCV 73.3 L (80.0-100.0) fL MCH 23.0 L (25.0-35.0) pg RDW 22.0 H (11.5-15.5) % Plt Count 92 L (150-450) k/uL Lymphocytes # 0.2 L (1.0-4.8) k/uL ABG pH (7.35-7.45) ABG pCO2 (35-45) mmHg ABG pO2 (83-108) mmHg ABG Total CO2 (19-24) mmol/L ABG O2 Saturation (94-97) % Sodium 136 L (137-145) mmol/L Potassium 3.3 L (3.5-5.1) mmol/L Carbon Dioxide 21 L (22-30) mmol/L BUN 26 H (7-17) mg/dL Creatinine 1.21 H (0.52-1.04) mg/dL Glucose 116 H (74-99) mg/dL POC Glucose (mg/dL) 116 H (70-110) mg/dL Calcium 7.2 L (8.4-10.2) mg/dL Alkaline Phosphatase 35 L (38-126) U/L C-Reactive Protein 17.8 H (<1.0) mg/dL Total Protein 5.4 L (6.3-8.2) g/dL Albumin 2.2 L (3.5-5.0) g/dL Procalcitonin (0.02-0.09) ng/mL Crossmatch Microbiology - Last 24 Hours (Table) 02/09/22 10:13 Blood Culture - Preliminary Blood No Growth after 24 hours 02/09/22 00:00 Urine Culture - Final Urine,Voided 02/09/22 00:13 Blood Culture Gram Stain - Preliminary Blood 02/09/22 00:03 Blood Culture Gram Stain - Preliminary Blood Blood Culture - Preliminary Serratia marcescens 02/09/22 00:03 Blood Culture - Final Blood 02/09/22 00:13 Blood Culture - Final Blood Assessment and Plan (1) Sepsis Current Visit: Yes Status: Acute Code(s): A41.9 - SEPSIS, UNSPECIFIED ORGANISM SNOMED Code(s): 73635095 Plan: 1patient presented to hospital with sepsis in this patient did have a fever tachycardia tachypnea now with evidence of vegetation on aortic wall likely secondary to endocarditis and could be related to either MRSA or Pseudomonas to the likely pathogen. 2 patient blood culture has been finalized Serratia marcescens, patient to continue with the cefepime vancomycin has been discontinued Family at the bedside. They did have multiple questions has been answered in Layman terms Time with Patient: Greater than 30
[2022-02-10 17:50] LABS: Glucose,Whole Blood 114 mg/dL (70-110)
--- NOTE | 2022-02-10 21:27 | P.PN ---
Subjective This is a pleasant 56 years old female with past medical history of anxiety, PTSD, presents with altered mental status. She is a patient of Dr. Vizcarra. Patient was admitted in the ICU from the emergency room, patient could not provide information which were obtained from medical records and staff. per ems pt was recently at [facility] for a blood infection. pt's last known well was last night at 10:30pm. pt found by family this evening altered. Patient was intubated in the emergency room Patient had a fever of 103 on admission, she is tachypneic 29-31, blood pressure 107/53 Labs reviewed on admission, WBC 8.7, low hemoglobin 6.9, low platelet 120, with thrombocytopenia which is mild ESR is elevated at 90, CRP elevated 8.9 PH normal 7.4, pCO2 normal at 37 INR 1.2 Sodium 132, potassium 3.2, creatinine 1.0. Liver enzymes are normal as well as bilirubin. Troponin is elevated at 0.37. ProBNP is elevated to 38,000 Urinalysis showing 3+ protein, large blood, RBC 127, WBC 27. Urine test is negative. Urine drug screen is positive for opioids EKG showing sinus tachycardia at [address]-T changes Chest x-ray: Acute pulmonary edema Computed tomography scan of the head and neck: Normal cervical spine with no fracture and normal CT of the brain by radiologist In the emergency room she received IV fluids with normal saline, vancomycin and ceftriaxone and ibuprofen and IV Tylenol, Dilaudid and lorazepam and succi nylcholine 02/10/2022 Patient is a pleasant 36 years old female was admitted with AMS and acute pul monary edema, she got intubated on admission and entered closely in the ICU with pulmonary/critical care team. Echocardiogram showed evidence of regurgitation on the aortic valve, which is confirmatory with WADE showed severe aortic regurgitation. Patient's risk factors with subacute bacterial endocarditis with sepsis secondary with Serratia marcescens and blood culture, a patient currently kept o n antibiotics with cefepime. IV vancomycin discontinued. She is also gentle hydration Today several consultants were on the case including pulmonary, cardiology, cardiothoracic surgery infectious disease with recommendation to transfer patient to tertiary care center I discussed the case with MICU fellow at [facility] in [place] Dr. Valladares and I discussed the case with her and she currently accepted the patient depending bed availability. Review of systems: N/a Active Medications Generic Name Dose Route Start Last Admin Trade Name Freq PRN Reason Stop Dose Admin Chlorhexidine Gluconate 15 ml 02/09/22 09:00 02/10/22 07:48 Chlorhexidine Gluconate 15 Ml Cup MUCOUS MEM 15 ml BID B[facility]OP Administration Propofol 1,000 mg/ IV Solution 100 mls @ 4.355 mls/hr 02/09/22 00:50 02/10/22 19:34 IV 50 mcg/kg/min .[id number] [facility] 21.773 mls/hr Administration Protocol 10 MCG/KG/MIN Sodium Chloride 1,000 mls @ 20 mls/hr 02/09/22 09:45 02/10/22 05:45 Saline 0.9% IV 50 mls/hr .Q24H [facility]OP Administration Cefepime HCl 2 gm/ Sodium 100 mls @ 25 mls/hr 02/10/22 00:00 02/10/22 15:43 Chloride IVPB 25 mls/hr Q8HR B[facility]OP Administration Protocol Acetaminophen 1,000 mg/ IV 100 mls @ 400 mls/hr 02/10/22 12:41 Solution IVPB 02/11/22 12:14 Q6HR PRN Mild Pain Miscellaneous Information 1 each 02/09/22 04:29 Potassium Replacement Protocol 1 Each Misc MISCELLANE DAILY PRN Per Protocol Protocol Naloxone HCl 0.2 mg 02/09/22 02:38 Naloxone 0.4 Mg/Ml 1 Ml Vial IV Q2M PRN Opioid Reversal Pantoprazole Sodium 40 mg 02/09/22 09:00 02/10/22 07:48 Pantoprazole 40 Mg/10 Ml Vial IVP 40 mg DAILY BISHOP Administration Objective - Vital Signs Vital signs: Vital Signs Temp 98.4 F 02/10/22 06:30 Pulse 99 02/10/22 07:00 Resp 30 H 02/10/22 07:00 BP 131/63 02/10/22 07:00 Pulse Ox 99 02/10/22 07:00 FiO2 40 02/10/22 07:12 Intake & Output 02/09/22 02/10/22 02/10/22 18:59 06:59 18:59 Intake Total 2106.672 871.084 50 Output Total 720 1220 170 Balance 1386.672 -348.916 -120 Weight 78 kg Intake: IV 300 580 50 Cefepime 2 gm In Sodium 100 Chloride 0.9% 100 ml @ 25 mls/hr IVPB Q8HR [facility] Rx# :[id number] Dextrose 5%-0.45% NaCl 1, 100 000 ml @ 100 mls/hr IV . Q10H [facility] Rx#:[id number] Sodium Chloride 0.9% 1, 200 180 50 000 ml @ 50 mls/hr IV . Q20H [facility] Rx#:[id number] Vancomycin 1,250 mg In 250 Sodium Chloride 0.9% 250 ml @ 125 mls/hr IVPB Q12H [facility] Rx#:[id number] cefTRIAXone 2 gm In 50 Sodium Chloride 0.9% 50 ml @ 100 mls/hr IVPB Q12HR [facility] Rx#:[id number] Intake, IV Titration 1496.672 291.084 Amount Vancomycin 1,250 mg In 1250 Sodium Chloride 0.9% 250 ml @ 125 mls/hr IVPB Q12H [facility] Rx#:[id number] cefTRIAXone 2 gm In 50 Sodium Chloride 0.9% 50 ml @ 100 mls/hr IVPB Q12HR [facility] Rx#:[id number] propofoL 1,000 mg In 196.672 291.084 Empty Bag 1 bag @ 10 MCG/ KG/MIN 4.355 mls/hr IV . [id number] [facility] Rx#:[id number] Blood Product 310 Rc As-1 Unit 310 [id number] Output: Gastric Drainage 70 Urine 720 1220 100 Other: Voiding Method Indwelling Catheter Indwelling Catheter # Bowel Movements 1 - Exam GENERAL: The patient is sedated and intubated HEENT: Pupils are round and equally reacting to light. EOMI. No scleral icterus. No conjunctival pallor. Normocephalic, atraumatic. No pharyngeal erythema. No thyromegaly. -CARDIOVASCULAR: S1 and S2 present. Systolic murmurs, rubs, or gallops. PULMONARY: Chest is clear to auscultation, no wheezing or crackles. ABDOMEN: Soft, nontender, nondistended, normoactive bowel sounds. No palpable organomegaly. MUSCULOSKELETAL: No joint swelling or deformity. EXTREMITIES: No cyanosis, clubbing, or pedal edema. NEUROLOGICAL: Gross neurological examination did not reveal any focal deficits. SKIN: No rashes. no petechiae. - Labs CBC & Chem 7: 02/10/22 13:33 02/10/22 06:28 Labs: Abnormal Lab Results - Last 24 Hours (Table) 02/09/22 02/09/22 02/09/22 Range/Units 00:13 07:27 07:27 RBC (3.80-5.40) m/uL Hgb (11.4-16.0) gm/dL Hct (34.0-46.0) % MCV (80.0-100.0) fL MCH (25.0-35.0) pg RDW (11.5-15.5) % Plt Count (150-450) k/uL Lymphocytes # (1.0-4.8) k/uL ABG pH (7.35-7.45) ABG pCO2 (35-45) mmHg ABG pO2 (83-108) mmHg ABG Total CO2 (19-24) mmol/L ABG O2 Saturation (94-97) % Sodium 133 L (137-145) mmol/L Potassium (3.5-5.1) mmol/L Carbon Dioxide (22-30) mmol/L BUN 24 H (7-17) mg/dL Creatinine 1.31 H (0.52-1.04) mg/dL Glucose 188 H (74-99) mg/dL POC Glucose (mg/dL) (70-110) mg/dL Calcium 6.9 L (8.4-10.2) mg/dL Iron 11 L (50-170) ug/dL TIBC 185 L (228-460) ug/dL % Saturation 5.74 L (12.00-45.00) Transferrin 132.0 L (204.0-354.0) mg/dL Alkaline Phosphatase (38-126) U/L Total Protein (6.3-8.2) g/dL Albumin (3.5-5.0) g/dL Procalcitonin (0.02-0.09) ng/mL Crossmatch See Detail 02/09/22 02/09/22 02/09/22 Range/Units 07:27 11:24 17:46 RBC (3.80-5.40) m/uL Hgb (11.4-16.0) gm/dL Hct (34.0-46.0) % MCV (80.0-100.0) fL MCH (25.0-35.0) pg RDW (11.5-15.5) % Plt Count (150-450) k/uL Lymphocytes # (1.0-4.8) k/uL ABG pH (7.35-7.45) ABG pCO2 (35-45) mmHg ABG pO2 (83-108) mmHg ABG Total CO2 (19-24) mmol/L ABG O2 Saturation (94-97) % Sodium (137-145) mmol/L Potassium (3.5-5.1) mmol/L Carbon Dioxide (22-30) mmol/L BUN (7-17) mg/dL Creatinine (0.52-1.04) mg/dL Glucose (74-99) mg/dL POC Glucose (mg/dL) 124 H 118 H (70-110) mg/dL Calcium (8.4-10.2) mg/dL Iron (50-170) ug/dL TIBC (228-460) ug/dL % Saturation (12.00-45.00) Transferrin (204.0-354.0) mg/dL Alkaline Phosphatase (38-126) U/L Total Protein (6.3-8.2) g/dL Albumin (3.5-5.0) g/dL Procalcitonin 10.60 H (0.02-0.09) ng/mL Crossmatch 02/10/22 02/10/22 02/10/22 Range/Units 00:49 05:40 05:50 RBC (3.80-5.40) m/uL Hgb (11.4-16.0) gm/dL Hct (34.0-46.0) % MCV (80.0-100.0) fL MCH (25.0-35.0) pg RDW (11.5-15.5) % Plt Count (150-450) k/uL Lymphocytes # (1.0-4.8) k/uL ABG pH 7.49 H (7.35-7.45) ABG pCO2 32 L (35-45) mmHg ABG pO2 187 H (83-108) mmHg ABG Total CO2 25 H (19-24) mmol/L ABG O2 Saturation 100.0 H (94-97) % Sodium (137-145) mmol/L Potassium (3.5-5.1) mmol/L Carbon Dioxide (22-30) mmol/L BUN (7-17) mg/dL Creatinine (0.52-1.04) mg/dL Glucose (74-99) mg/dL POC Glucose (mg/dL) 133 H 126 H (70-110) mg/dL Calcium (8.4-10.2) mg/dL Iron (50-170) ug/dL TIBC (228-460) ug/dL % Saturation (12.00-45.00) Transferrin (204.0-354.0) mg/dL Alkaline Phosphatase (38-126) U/L Total Protein (6.3-8.2) g/dL Albumin (3.5-5.0) g/dL Procalcitonin (0.02-0.09) ng/mL Crossmatch 02/10/22 02/10/22 Range/Units 06:28 06:28 RBC 3.60 L (3.80-5.40) m/uL Hgb 8.3 L (11.4-16.0) gm/dL Hct 26.4 L (34.0-46.0) % MCV 73.3 L (80.0-100.0) fL MCH 23.0 L (25.0-35.0) pg RDW 22.0 H (11.5-15.5) % Plt Count 92 L (150-450) k/uL Lymphocytes # 0.2 L (1.0-4.8) k/uL ABG pH (7.35-7.45) ABG pCO2 (35-45) mmHg ABG pO2 (83-108) mmHg ABG Total CO2 (19-24) mmol/L ABG O2 Saturation (94-97) % Sodium 136 L (137-145) mmol/L Potassium 3.3 L (3.5-5.1) mmol/L Carbon Dioxide 21 L (22-30) mmol/L BUN 26 H (7-17) mg/dL Creatinine 1.21 H (0.52-1.04) mg/dL Glucose 116 H (74-99) mg/dL POC Glucose (mg/dL) (70-110) mg/dL Calcium 7.2 L (8.4-10.2) mg/dL Iron (50-170) ug/dL TIBC (228-460) ug/dL % Saturation (12.00-45.00) Transferrin (204.0-354.0) mg/dL Alkaline Phosphatase 35 L (38-126) U/L Total Protein 5.4 L (6.3-8.2) g/dL Albumin 2.2 L (3.5-5.0) g/dL Procalcitonin (0.02-0.09) ng/mL Crossmatch Microbiology - Last 24 Hours (Table) 02/09/22 00:13 Blood Culture Gram Stain - Preliminary Blood 02/09/22 00:03 Blood Culture Gram Stain - Preliminary Blood Blood Culture - Preliminary Serratia marcescens 02/09/22 00:03 Blood Culture - Final Blood 02/09/22 00:13 Blood Culture - Final Blood 02/09/22 00:00 Urine Culture - Preliminary Urine,Voided Assessment and Plan Assessment: Subacute bacterial endocarditis Severe aortic regurgitation secondary to above Sepsis with fever and tachypnea Acute hypoxic respiratory failure requiring intubation and mechanical ventilation Metabolic encephalopathy Acute pulmonary edema, could be acute CHF versus RDS Severe anemia, microcytic hyperchromic requiring blood transfusion 4 Elevated troponin Plan: This is a pleasant 56 years old female who presents with AMS, on mechanical ventilation, anemia continue with mechanical ventilation with pulmonary/critical care team consult Monitor hemoglobin, and transfuse as needed Discussed the case with [facility], patient that accepted for transfer pending bed availability Continue with cefepime Several consultants on the case including infectious disease, pulmonary/critical care, cardiology, cardiothoracic surgery continue with IV fluids Labs and medication were reviewed.. Continue same treatment. Continue with symptomatic treatment. Resume home medication. Monitor lytes and vitals. DVT and GI prophylaxis. Further recommendations as per clinical course of the patient DVT prophylaxis: no Subcutaneous heparin in view of severe anemia GI Prophylaxis: Ppi Prognosis is guarded
[2022-02-11] MEDS: CEFEPIME 2 GM in SODIUM CHLORIDE 0.9% 100 ML IVPB SCH ×4 (00:10→23:35)
[2022-02-11 01:22] LABS: Glucose,Whole Blood 105 mg/dL (70-110)
--- NOTE | 2022-02-11 02:54 | XR ---
EXAMINATION TYPE: XR chest 1V portable DATE OF EXAM: 02/11/2022 COMPARISON: 02/10/2022 HISTORY: Check tube placement TECHNIQUE: FINDINGS: There is gastric tube with the tip overlying the distal esophagus close to the gastroesopha geal junction. There is some pulmonary vascular congestion. The endotracheal tube is 5 cm from the ca jazmin. There are chest leads. IMPRESSION: The gastric tube is in the distal esophagus. There is increased pulmonary congestion comp ared to yesterday.
--- NOTE | 2022-02-11 04:33 | XR ---
EXAMINATION TYPE: XR chest 1V portable DATE OF EXAM: 02/11/2022 COMPARISON: Today HISTORY: Tube placement TECHNIQUE: FINDINGS: There is endotracheal tube 4.5 cm from the awais. There is some pulmonary interstitial and airspace edema. There is nasogastric tube in the stomach. There are chest leads. IMPRESSION: There is pulmonary edema without change. NG tube is in the stomach.
[2022-02-11] MEDS: SODIUM CHLORIDE 0.9% 1,000 ML IV SCH (05:00)
[2022-02-11 06:02] LABS: ABG Base Excess 0.9 mmol/L; ABG HCO3 25 mmol/L (21-25); ABG PCO2 34 mmHg (35-45); ABG PH 7.47 (7.35-7.45); ABG PO2 162 mmHg (83-108); ABG TCO2 26 mmol/L (19-24); Allen Test Performed? Yes
[2022-02-11 06:11] LABS: Glucose,Whole Blood 95 mg/dL (70-110)
[2022-02-11 06:17] LABS: Anisocytosis Moderate; Basophils % (A) 0 %; Eosinophils % (A) 1 %; HCT 30.1 % (34.0-46.0); Hypochromasia Marked; Lymphocytes # (A) 0.2 k/uL (1.0-4.8); Lymphocytes % (A) 8 %; MCH 23.3 pg (25.0-35.0); MCHC 30.3 g/dL (31.0-37.0); MCV 76.9 fL (80.0-100.0); Mean Platelet Volume 7.3; Microcytosis Moderate; Monocytes # (A) 0.1 k/uL (0-1.0); Monocytes % (A) 4 %; Neutrophils # (A) 2.5 k/uL (1.3-7.7); Neutrophils % (A) 84 %; Platelet Count 94 k/uL (150-450); Poikilocytosis Slight; RBC 3.92 m/uL (3.80-5.40); RDW 21.1 % (11.5-15.5)
[2022-02-11 06:22] LABS: HGB 9.1 gm/dL (11.4-16.0)
[2022-02-11 06:35] LABS: Albumin 2.2 g/dL (3.5-5.0); Calcium 7.5 mg/dL (8.4-10.2); Potassium 3.2 mmol/L (3.5-5.1); Total Bilirubin 0.5 mg/dL (0.2-1.3); Total Protein 5.6 g/dL (6.3-8.2)
[2022-02-11] MEDS: POTASSIUM BICARBONATE/CIT AC 20 MEQ TABLET.EFF NG-TUBE SCH ×2 (07:01→09:31)
--- NOTE | 2022-02-11 08:56 | P.PN ---
Subjective Progress Note Date: 02/11/22 PROGRESS NOTE The patient is a 36-year-old female who presented with progressive dyspnea, change in mental status requiring mechanical ventilation. She was febrile and had positive blood cultures. She was recently discharged from [facility] with diarrhea and positive blood cultures as well with change in mental status. Her echocardiogram performed yesterday showed possible aortic valve vegetations that was confirmed on the transesophageal echocardiogram with severe aortic regurgitation and a tricuspid aortic valve. She had moderate mitral regurgitation. Her echocardiogram at [facility] on January 25 showed a normal systolic function with trace aortic regurgitation and no mention of vegetations. She had at [facility] evidence of splenic infarct and colitis as well has severe anemia. She continues to be intubated, tachycardic at times. Her blood pressure is stable. The color of her urine is better. There is no evidence of malignant arrhythmia. She continues to be febrile. Her urinary output is good. Her blood cultures were positive for Se rratia Marcescens which is the same bacteria noted at [facility]. She was seen by the cardiovascular team yesterday. Her computed tomography scan of the abdomen showed moderately severe hepatosplenomegaly was bilateral enlargement of the kidneys. She had cardiomegaly with pleural effusion and basilar pulmonary infiltrate atelectasis. No suggestion of colitis was noted. February 11: The patient remains intubated and sedated, in sinus mechanism, hemodynamically stable on no vasopressors. She has good urinary output. There is no evidence of malignant arrhythmia. Her blood pressure were positive for Serratia marcescens. She is afebrile. Her echocardiogram showed severe aortic regurgitation with evidence of vegetation on a tricuspid aortic valve and question of ulceration noted. Her systolic function was 50-55%. On the echocardiogram performed at [facility] recently there is no documentation of the vegetation and she had trace AI. The patient is being evaluated to be transferred to tertiary care hospital for further treatment. Medications: Cefepime, protonix, vancomycin PHYSICAL EXAMINATION: 36-year-old female intubated and sedated Blood pressure 123/57 heart rate 78 LUNGS: Clear to auscultation anteriorly HEART: Regular rate and rhythm, S1, S2. No S3. systolic ejection murmur with diastolic murmur at the base 2/6 ABDOMEN: Soft, positive bowel sounds, no organomegaly EXTREMETIES: No edema LAB: Hemoglobin 9.1, white blood cell 3.0, BUN 24, creatinine 0.97, potassium 3.2. Albumin 2.2 IMPRESSION: 1. 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 Colitis and spleen infarct by CAT scan at [facility] 3. Respiratory failure 4. Change in mental status prior to admission related to the sepsis 5. Anemia, most likely related to the infectious process 6. Abnormal renal functions PLAN: 1. IV antibiotics per infectious disease 2. It is possible that her splenic infarct is related to a septic emboli 3. Continue supportive care 4. Consider transfer to tertiary care in view of the serious condition. 5. Prognosis is guarded 6. Consider weaning and extubating if stable Objective - Vital Signs Vital signs: Vital Signs Temp 98.4 F 02/11/22 04:00 Pulse 78 02/11/22 07:00 Resp 16 02/11/22 07:00 BP 123/57 02/11/22 07:00 Pulse Ox 99 02/11/22 07:00 FiO2 40 02/11/22 07:20 Intake & Output 02/10/22 02/11/22 02/11/22 18:59 06:59 18:59 Intake Total 965.278 830.193 30 Output Total 1490 1575 60 Balance -524.722 -744.807 -30 Weight 78 kg 75.2 kg Intake: IV 370 280 20 Cefepime 2 gm In Sodium 100 100 Chloride 0.9% 100 ml @ 25 mls/hr IVPB Q8HR [facility] Rx# :[id number] Sodium Chloride 0.9% 1, 270 180 20 000 ml @ 20 mls/hr IV . Q24H [facility] Rx#:[id number] Intake, IV Titration 285.278 170.193 Amount ACETAMINOPHEN IV (For NPO 100 ) 1,000 mg In Empty Bag 1 bag @ 400 mls/hr IVPB Q6HR [facility] Rx#:[id number] propofoL 1,000 mg In 185.278 170.193 Empty Bag 1 bag @ 10 MCG/ KG/MIN 4.355 mls/hr IV . [id number] [facility] Rx#:[id number] Tube Feeding 40 10 Blood Product 310 310 Rc As-1 Unit 310 [id number] Rc As-1 Unit 0 310 [id number] Other 30 Output: Gastric Drainage 70 Urine 1420 1575 60 Other: Voiding Method Indwelling Catheter Indwelling Catheter # Bowel Movements 1 1 - Labs CBC & Chem 7: 02/11/22 06:06 02/11/22 06:06 Labs: Abnormal Lab Results - Last 24 Hours (Table) 02/09/22 02/10/22 02/10/22 Range/Units 00:13 06:28 11:52 WBC (3.8-10.6) k/uL RBC (3.80-5.40) m/uL Hgb (11.4-16.0) gm/dL Hct (34.0-46.0) % MCV (80.0-100.0) fL MCH (25.0-35.0) pg MCHC (31.0-37.0) g/dL RDW (11.5-15.5) % Plt Count (150-450) k/uL Lymphocytes # (1.0-4.8) k/uL ABG pH (7.35-7.45) ABG pCO2 (35-45) mmHg ABG pO2 (83-108) mmHg ABG Total CO2 (19-24) mmol/L ABG O2 Saturation (94-97) % Potassium (3.5-5.1) mmol/L Chloride (98-107) mmol/L BUN (7-17) mg/dL Glucose (74-99) mg/dL POC Glucose (mg/dL) 116 H (70-110) mg/dL Calcium (8.4-10.2) mg/dL Total Protein (6.3-8.2) g/dL Albumin (3.5-5.0) g/dL Procalcitonin 7.18 H (0.02-0.09) ng/mL Crossmatch See Detail 02/10/22 02/10/22 02/11/22 Range/Units 13:33 17:49 06:00 WBC 3.3 L (3.8-10.6) k/uL RBC 2.91 L (3.80-5.40) m/uL Hgb 6.5 L* D (11.4-16.0) gm/dL Hct 21.4 L (34.0-46.0) % MCV 73.5 L (80.0-100.0) fL MCH 22.4 L (25.0-35.0) pg MCHC 30.5 L (31.0-37.0) g/dL RDW 22.0 H (11.5-15.5) % Plt Count 98 L (150-450) k/uL Lymphocytes # (1.0-4.8) k/uL ABG pH 7.47 H (7.35-7.45) ABG pCO2 34 L (35-45) mmHg ABG pO2 162 H (83-108) mmHg ABG Total CO2 26 H (19-24) mmol/L ABG O2 Saturation 100.0 H (94-97) % Potassium (3.5-5.1) mmol/L Chloride (98-107) mmol/L BUN (7-17) mg/dL Glucose (74-99) mg/dL POC Glucose (mg/dL) 114 H (70-110) mg/dL Calcium (8.4-10.2) mg/dL Total Protein (6.3-8.2) g/dL Albumin (3.5-5.0) g/dL Procalcitonin (0.02-0.09) ng/mL Crossmatch 02/11/22 02/11/22 Range/Units 06:06 06:06 WBC 3.0 L (3.8-10.6) k/uL RBC (3.80-5.40) m/uL Hgb 9.1 L D (11.4-16.0) gm/dL Hct 30.1 L (34.0-46.0) % MCV 76.9 L (80.0-100.0) fL MCH 23.3 L (25.0-35.0) pg MCHC 30.3 L (31.0-37.0) g/dL RDW 21.1 H (11.5-15.5) % Plt Count 94 L (150-450) k/uL Lymphocytes # 0.2 L (1.0-4.8) k/uL ABG pH (7.35-7.45) ABG pCO2 (35-45) mmHg ABG pO2 (83-108) mmHg ABG Total CO2 (19-24) mmol/L ABG O2 Saturation (94-97) % Potassium 3.2 L (3.5-5.1) mmol/L Chloride 112 H (98-107) mmol/L BUN 24 H (7-17) mg/dL Glucose 107 H (74-99) mg/dL POC Glucose (mg/dL) (70-110) mg/dL Calcium 7.5 L (8.4-10.2) mg/dL Total Protein 5.6 L (6.3-8.2) g/dL Albumin 2.2 L (3.5-5.0) g/dL Procalcitonin (0.02-0.09) ng/mL Crossmatch Microbiology - Last 24 Hours (Table) 02/09/22 00:13 Blood Culture Gram Stain - Preliminary Blood Blood Culture - Preliminary Gram Neg Bacilli 02/09/22 00:03 Blood Culture Gram Stain - Preliminary Blood Blood Culture - Preliminary Serratia marcescens 02/09/22 10:13 Blood Culture - Preliminary Blood No Growth after 24 hours 02/09/22 00:00 Urine Culture - Final Urine,Voided
[2022-02-11] MEDS: CHLORHEXIDINE GLUCONATE 15 ML CUP MUCOUS MEM SCH (09:29)
[2022-02-11] MEDS: PANTOPRAZOLE 40 MG/10 ML VIAL IVP SCH (09:29)
[2022-02-11] MEDS ORDERED: FUROSEMIDE 10 MG/ML 4 ML VIAL IV STA (09:41)
--- NOTE | 2022-02-11 11:28 | P.PN ---
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 Note that no records are available regarding this most recent hospitalization. The patient was quite sick and she presented to the emergency department with acute respiratory failure and she was found to be in pulmonary edema, immediately intubated and placed on a mechanical ventilator. Patient accordingly was transferred to the intensive care unit for further workup. Note that, a CAT scan of the brain that was done in the emergency along with a CAT scan of the cervical spine were negative. Unfortunately, no documentation unavailable from our emergency department regarding the details of the treatment and her presentation. I was involved in this patient's care and I saw her in the intensive care unit. She was already on propofol and she wasn't well sedated and Profore was running at 35 mcg/kg per minute. At the same time, the patient was in the mechanical ventilator on assist control mode at the rate of 16 with a tidal volume of 350 and FiO2 of 40% with a PEEP of 5. I saw the morning blood gases showed a pH of 7.44 with a pCO2 of 37 and pO2 159 and this was done and FiO2 of 50%. The patient had a proBNP level of 33,000, the patient's white cell count was 7.3 with hemoglobin of 8.3 after being transfused with a total of 2 units of packed RBC 4 hemoglobin of 6.9. The platelet count was 135. The patient also developed an acute kidney injury in the creatinine was up to 1.3. The patient had a troponin level of 0.37. No pressors were utilized overnight. On examination, the patient had a holosystolic murmur and a Echocardiogram showed moderate degree of aortic regurgitation with mitral stenosis and there was an echodense lesion attached to the aortic leaflets consistent with vegetation. Immediately cardiology was involved and the patient was given a WADE that confirmed the presence of infective endocarditis and the patient evidence of vegetation of the aortic valve with severe aortic regurgitation and normal appearing mitral valve and normal ejection fraction. The patient was already given a combination of vancomycin and Rocephin. The permanent blood cultures are showing gram-negative bacillus. currently she is well sedated and the patient is calm and comfortable on no pressors. 02/10 2022, patient is being seen for a follow-up. The patient's critically ill and the patient is in the intensive care unit for now intubated on a mechanical ventilator. Based on the records from [facility], the patient was hospitalized there for diarrhea and abdominal pain and the patient was found to be septic with Serratia marcescens. The patient was discharged home after being given a combination of Flagyl and Cipro. Note that echocardiogram wasn't at that time and there was no evidence of any vegetation and there was mild aortic regurgitation. The patient also has undergone further workup including CAT scan of the abdomen that showed splenic infarct. The patient currently is septic with the same microorganism. Blood cultures positive for Serratia. The patient is currently on IV cefepime. At the same time, the patient remains intubated on mechanical ventilator. This morning, the patient remains off of 50 mg/kg per minute and the patient is also well sedated on mechanical ventilator on assist control mode at the rate of 16 with tidal volume of a 50 FiO2 of 40% with a PEEP of 5. Blood gases showed a pH of 7.49 with a pCO2 of 33 and pO2 187. Chest x-ray shows residual interstitial edema bilaterally more so on the right and the patient has an adequate positioning of the orotracheal tube. The patient is on no pressors. She is hemodynamic is stable. Once it was at 4.7 with a hemoglobin of 8.3 and a platelet count of 92. The sodium is at 136 with a mean of 26 and a creatinine of 1.2. The patient is currently on normal saline at rate of 20 mL an hour. No other significant issues for now. Discussed the case with the cardiothoracic team and cardiology. The patient is being considered to be transferred to a tertiary care center regarding the complexity of her infective endocarditis. Meanwhile, the patient was also seen by general surgery. CAT scan of the abdomen was also done that showed no acute abnormalities. The patient was found to have some atelectatic changes small bilateral pleural effusion lung bases. This tonic infarct was not seen. There was no acute intra-abdominal abnormalities of colitis seen on repeat CAT scan of the abdomen. No intra-abdominal abscesses. 02/11/2022, the patient remains on a mechanical ventilator. Attempts were made to transfer this patient to [facility]. Unfortunately, due to bad situations, patient was unable to transfer. As such, the patient stayed with us. She was accepted to go to transfer to [facility] and this did not happen. Meanwhile, the patient remains hemodynamically stable. This morning to the performed today to 55 mcg/kg per minute. She is on assist control mode at the rate of 16 with a tidal volume of 450 and FiO2 of 40% with a PEEP of 5. She is hemodynamically stable and she has not required any pressors. She without enteral feeding for nutritional support and she is currently on vital AF this is an hour. The patient has no fever. White cell count is at 3 with a hemoglobin of 9.1. The blood gases from today shows a pH of 7.47 with a pCO2 of 34 and pO2 of 162. Recent electrolytes are stable and the renal function is also stable with a creatinine of 0.9 and a BUN of 24 and a sodium level of 144. She is on IV cefepime regarding Serratia endocarditis and sepsis. Overall fluid balance is -1.2 L in the chest x-ray still showing interstitial edema ET tube is in a good location. Note that hemoglobin also dropped down to 6.5. The patient received a total of 2 units of packed RBC in the morning hemoglobin is up in 1 is currently stable. No signs of any bleeding. No fever. No chills. No hemoptysis. Objective - Vital Signs Vital signs: Vital Signs Temp 98.5 F 02/11/22 08:00 Pulse 92 02/11/22 11:00 Resp 22 02/11/22 11:00 BP 124/61 02/11/22 11:00 Pulse Ox 99 02/11/22 11:00 FiO2 40 02/11/22 10:45 Intake & Output 02/10/22 02/11/22 02/11/22 18:59 06:59 18:59 Intake Total 965.278 830.193 274.979 Output Total 1490 1575 280 Balance -524.722 -744.807 -5.021 Weight 78 kg 75.2 kg Intake: IV 370 280 115 Cefepime 2 gm In Sodium 100 100 75 Chloride 0.9% 100 ml @ 25 mls/hr IVPB Q8HR [facility] Rx# :[id number] Sodium Chloride 0.9% 1, 270 180 40 000 ml @ 20 mls/hr IV . Q24H [facility] Rx#:[id number] Intake, IV Titration 285.278 170.193 109.979 Amount ACETAMINOPHEN IV (For NPO 100 ) 1,000 mg In Empty Bag 1 bag @ 400 mls/hr IVPB Q6HR [facility] Rx#:[id number] propofoL 1,000 mg In 185.278 170.193 109.979 Empty Bag 1 bag @ 10 MCG/ KG/MIN 4.355 mls/hr IV . [id number] [facility] Rx#:[id number] Tube Feeding 40 20 Blood Product 310 310 Rc As-1 Unit 310 [id number] Rc As-1 Unit 0 310 [id number] Other 30 30 Output: Gastric Drainage 70 Urine 1420 1575 280 Other: Voiding Method Indwelling Catheter Indwelling Catheter # Bowel Movements 1 1 - Exam Is intubated on mechanical ventilator, orotracheal and orogastric tube are both in place Head exam was generally normal. There was no scleral icterus or corneal arcus. Mucous membranes were moist. Neck was supple and with jugular venous distension, thyromegaly, or carotid bruits. Carotids were easily palpable bilaterally. There was no adenopathy.. The patient has positive JVDs. No goiter or neck masses. Examination of the heart revealed a harsh systolic murmur, pansystolic easily heard over the precordium especially in the left apex and left lower leg. Lungs were clear to auscultation and percussion, and with normal diaphragmatic excursion. No wheezes or rales were noted. Abdominal exam revealed normal bowel sounds. The abdomen was soft, non-tender, and without masses, organomegaly, or appreciable enlargement of the abdominal aorta. Examination of the extremities revealed easily palpable radial, femoral and pedal pulses. There was no cyanosis, clubbing or edema. Examination of the skin revealed no evidence of significant rashes, suspicious appearing nevi or other concerning lesions. Neurologically, the patient is awake and alert and the patient does not have any focal neurological deficit. Cranial nerves are essentially intact. - Labs CBC & Chem 7: 02/11/22 06:06 02/11/22 06:06 Labs: Abnormal Lab Results - Last 24 Hours (Table) 02/09/22 02/10/22 02/10/22 Range/Units 00:13 06:28 11:52 WBC (3.8-10.6) k/uL RBC (3.80-5.40) m/uL Hgb (11.4-16.0) gm/dL Hct (34.0-46.0) % MCV (80.0-100.0) fL MCH (25.0-35.0) pg MCHC (31.0-37.0) g/dL RDW (11.5-15.5) % Plt Count (150-450) k/uL Lymphocytes # (1.0-4.8) k/uL ABG pH (7.35-7.45) ABG pCO2 (35-45) mmHg ABG pO2 (83-108) mmHg ABG Total CO2 (19-24) mmol/L ABG O2 Saturation (94-97) % Potassium (3.5-5.1) mmol/L Chloride (98-107) mmol/L BUN (7-17) mg/dL Glucose (74-99) mg/dL POC Glucose (mg/dL) 116 H (70-110) mg/dL Calcium (8.4-10.2) mg/dL Total Protein (6.3-8.2) g/dL Albumin (3.5-5.0) g/dL Procalcitonin 7.18 H (0.02-0.09) ng/mL Crossmatch See Detail 02/10/22 02/10/22 02/11/22 Range/Units 13:33 17:49 06:00 WBC 3.3 L (3.8-10.6) k/uL RBC 2.91 L (3.80-5.40) m/uL Hgb 6.5 L* D (11.4-16.0) gm/dL Hct 21.4 L (34.0-46.0) % MCV 73.5 L (80.0-100.0) fL MCH 22.4 L (25.0-35.0) pg MCHC 30.5 L (31.0-37.0) g/dL RDW 22.0 H (11.5-15.5) % Plt Count 98 L (150-450) k/uL Lymphocytes # (1.0-4.8) k/uL ABG pH 7.47 H (7.35-7.45) ABG pCO2 34 L (35-45) mmHg ABG pO2 162 H (83-108) mmHg ABG Total CO2 26 H (19-24) mmol/L ABG O2 Saturation 100.0 H (94-97) % Potassium (3.5-5.1) mmol/L Chloride (98-107) mmol/L BUN (7-17) mg/dL Glucose (74-99) mg/dL POC Glucose (mg/dL) 114 H (70-110) mg/dL Calcium (8.4-10.2) mg/dL Total Protein (6.3-8.2) g/dL Albumin (3.5-5.0) g/dL Procalcitonin (0.02-0.09) ng/mL Crossmatch 02/11/22 02/11/22 Range/Units 06:06 06:06 WBC 3.0 L (3.8-10.6) k/uL RBC (3.80-5.40) m/uL Hgb 9.1 L D (11.4-16.0) gm/dL Hct 30.1 L (34.0-46.0) % MCV 76.9 L (80.0-100.0) fL MCH 23.3 L (25.0-35.0) pg MCHC 30.3 L (31.0-37.0) g/dL RDW 21.1 H (11.5-15.5) % Plt Count 94 L (150-450) k/uL Lymphocytes # 0.2 L (1.0-4.8) k/uL ABG pH (7.35-7.45) ABG pCO2 (35-45) mmHg ABG pO2 (83-108) mmHg ABG Total CO2 (19-24) mmol/L ABG O2 Saturation (94-97) % Potassium 3.2 L (3.5-5.1) mmol/L Chloride 112 H (98-107) mmol/L BUN 24 H (7-17) mg/dL Glucose 107 H (74-99) mg/dL POC Glucose (mg/dL) (70-110) mg/dL Calcium 7.5 L (8.4-10.2) mg/dL Total Protein 5.6 L (6.3-8.2) g/dL Albumin 2.2 L (3.5-5.0) g/dL Procalcitonin (0.02-0.09) ng/mL Crossmatch - Last 24 Hours (Table) 02/09/22 00:13 Blood Culture Gram Stain - Preliminary Blood Blood Culture - Preliminary Gram Neg Bacilli 02/09/22 00:03 Blood Culture Gram Stain - Preliminary Blood Blood Culture - Preliminary Serratia marcescens 02/09/22 10:13 Blood Culture - Preliminary Blood No Growth after 24 hours 02/09/22 00:00 Urine Culture - Final Urine,Voided Assessment and Plan Plan: 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 The patient was also bacteremic and septic on a previous hospitalization [facility] with the same microorganism. At that time, the patient mild aortic regurgitation without any significant vegetations seen on echocardiogram. The patient remains significant for now. The patient is hemodynamically stable on no pressors. Sepsis secondary to Serratia marcescens and infective endocarditis. CAT scan of the abdomen showed septic infarct of the spleen Acute severe aortic regurgitation secondary to infective endocarditis Acute pulmonary edema secondary to above, improving as the patient has been diuresed over the past 24 hours. Adequate oxygenation at this point in time. Distal residual interstitial edema. Pulmonary status is stable and the patient is on a mechanical ventilator. There is adequate oxygenation and the chest x- ray findings are also stable. Acute hypoxic respiratory failure secondary to above currently intubated on a mechanical ventilator, improvement in the oxygenation Acute on chronic anemia, hemoglobin was 6.9 and the patient was given a total of 2 units of packed RBCs, subsequent hemoglobin dropped down to 6.5 and the patient was given 2 additional units of packed RBC. Making a total of 4 units of packed RBC Altered mentation probably related to metabolic encephalopathy. CAT scan of the brain is negative, currently sedated on propofol Acute kidney injury, possibly due to sepsis/infective endocarditis. 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 Splenic infarct probably related to septic embolism Questionable IV drug use Plan The patient is stable and a mechanical ventilator. Sedation will be discontinued and the weaning parameters will be checked Possible extubation today Continue IV cefepime for now A total of 4 units of packed RBC was given. Current hemoglobin stable at 9.1 FEEDING FOR NOW will be held Potential transfer to [facility]. Meanwhile, we'll make an attempt to extubated patient and monitor her progress. He is a patient dose of Lasix 40 mg IV push WADE was noted Echocardiogram was noted Transfer this patient to a tertiary care center Once bed available This is a critically care evaluation was done and more than 30 minutes. had a lengthy discussion with the family including the mother and the father and updated them on her condition Time with Patient: Greater than 30
[2022-02-11 12:36] LABS: Glucose,Whole Blood 101 mg/dL (70-110)
[2022-02-11 18:49] LABS: Glucose,Whole Blood 126 mg/dL (70-110)
--- NOTE | 2022-02-11 20:05 | P.PN ---
Subjective Progress Note Date: 02/11/22 CHIEF COMPLAINT: Colitis HISTORY OF PRESENT ILLNESS: The patient is a 36-year-old female with complicated history of colitis including valvular vegetation who was about to be transferred to outside facility for further management. Transfer has been held due to no availability of beds. Patient has been extubated. She denies abdominal pain. No reports of blood in stools. Her parents are at bedside. ROS: No reports of nausea and vomiting. No bowel movements. No new chest pain. PHYSICAL EXAM: VITAL SIGNS: Reviewed CONSTITUTIONAL: Well developed and in no acute distress. EYES: Conjuctivae without sclera icterus. Extraocular movements grossly intact. HEAD, EARS, NOSE, THROAT: Moist buccal mucosa. Head is atraumatic, normocephalic. Hears conversational speech. No nasal drainage. RESPIRATORY: Non-labored respirations and equal bilateral excursions. CARDIOVASCULAR: Palpable 2+ radial pulses. ABDOMEN: Nontender. MUSCULOSKELETAL: No gross deformity of the lower extremities noted. No clubbing. No cyanosis. SKIN: Good skin turgor. Well perfused. NEUROLOGIC: Cranial nerves II through XII grossly intact. No focal or lateralizing signs. PSYCH: Appropriate affect. Alert and oriented to person, place and time. CLINICAL LABS: Reviewed. WBC normal 3.0. Hemoglobin of 6.5-9.1 after 2 units packed RBCs. ASSESSMENT: 1. Sepsis due to valvular vegetation 2. Colitis PLAN: 1. Clinically, no current colitis. 2. Await transfer due to aortic valve regurgitation Objective - Vital Signs Vital signs: Vital Signs Temp 98.3 F 02/11/22 16:00 Pulse 93 02/11/22 19:00 Resp 19 02/11/22 19:00 BP 133/55 02/11/22 19:00 Pulse Ox 97 02/11/22 19:00 FiO2 40 02/11/22 10:45 Intake & Output 02/11/22 02/11/22 02/12/22 06:59 18:59 06:59 Intake Total 830.193 459.979 Output Total 1575 2420 Balance -744.807 -1960.021 Weight 75.2 kg Intake: IV 280 300 Cefepime 2 gm In Sodium 100 200 Chloride 0.9% 100 ml @ 25 mls/hr IVPB Q8HR [facility] Rx# :[id number] Sodium Chloride 0.9% 1, 180 100 000 ml @ 20 mls/hr IV . Q24H [facility] Rx#:[id number] Intake, IV Titration 170.193 109.979 Amount propofoL 1,000 mg In 170.193 109.979 Empty Bag 1 bag @ 10 MCG/ KG/MIN 4.355 mls/hr IV . [id number] [facility] Rx#:[id number] Tube Feeding 40 20 Blood Product 310 Rc As-1 Unit 310 [id number] Other 30 30 Output: Urine 1575 2420 Other: Voiding Method Indwelling Catheter Indwelling Catheter # Bowel Movements 1 - Labs CBC & Chem 7: 02/11/22 06:06 02/11/22 17:12 Labs: Abnormal Lab Results - Last 24 Hours (Table) 02/09/22 02/11/22 02/11/22 Range/Units 00:13 06:00 06:06 WBC 3.0 L (3.8-10.6) k/uL Hgb 9.1 L D (11.4-16.0) gm/dL Hct 30.1 L (34.0-46.0) % MCV 76.9 L (80.0-100.0) fL MCH 23.3 L (25.0-35.0) pg MCHC 30.3 L (31.0-37.0) g/dL RDW 21.1 H (11.5-15.5) % Plt Count 94 L (150-450) k/uL Lymphocytes # 0.2 L (1.0-4.8) k/uL ABG pH 7.47 H (7.35-7.45) ABG pCO2 34 L (35-45) mmHg ABG pO2 162 H (83-108) mmHg ABG Total CO2 26 H (19-24) mmol/L ABG O2 Saturation 100.0 H (94-97) % Potassium (3.5-5.1) mmol/L Chloride (98-107) mmol/L BUN (7-17) mg/dL Glucose (74-99) mg/dL POC Glucose (mg/dL) (70-110) mg/dL Calcium (8.4-10.2) mg/dL Total Protein (6.3-8.2) g/dL Albumin (3.5-5.0) g/dL Crossmatch See Detail 02/11/22 02/11/22 Range/Units 06:06 18:48 WBC (3.8-10.6) k/uL Hgb (11.4-16.0) gm/dL Hct (34.0-46.0) % MCV (80.0-100.0) fL MCH (25.0-35.0) pg MCHC (31.0-37.0) g/dL RDW (11.5-15.5) % Plt Count (150-450) k/uL Lymphocytes # (1.0-4.8) k/uL ABG pH (7.35-7.45) ABG pCO2 (35-45) mmHg ABG pO2 (83-108) mmHg ABG Total CO2 (19-24) mmol/L ABG O2 Saturation (94-97) % Potassium 3.2 L (3.5-5.1) mmol/L Chloride 112 H (98-107) mmol/L BUN 24 H (7-17) mg/dL Glucose 107 H (74-99) mg/dL POC Glucose (mg/dL) 126 H (70-110) mg/dL Calcium 7.5 L (8.4-10.2) mg/dL Total Protein 5.6 L (6.3-8.2) g/dL Albumin 2.2 L (3.5-5.0) g/dL Crossmatch Microbiology - Last 24 Hours (Table) 02/09/22 00:13 Blood Culture Gram Stain - Final Blood Blood Culture - Final Serratia marcescens 02/09/22 00:03 Blood Culture Gram Stain - Final Blood Blood Culture - Final Serratia marcescens 02/09/22 10:13 Blood Culture - Preliminary Blood No Growth after 48 hours
--- NOTE | 2022-02-11 21:50 | P.PN ---
Subjective This is a pleasant 56 years old female with past medical history of anxiety, PTSD, presents with altered mental status. She is a patient of Dr. Vizcarra. Patient was admitted in the ICU from the emergency room, patient could not provide information which were obtained from medical records and staff. per ems pt was recently at [place] for a blood infection. pt's last known well was last night at 10:30pm. pt found by family this evening altered. Patient was intubated in the emergency room Patient had a fever of 103 on admission, she is tachypneic 29-31, blood pressure 107/53 Labs reviewed on admission, WBC 8.7, low hemoglobin 6.9, low platelet 120, with thrombocytopenia which is mild ESR is elevated at 90, CRP elevated 8.9 PH normal 7.4, pCO2 normal at 37 INR 1.2 Sodium 132, potassium 3.2, creatinine 1.0. Liver enzymes are normal as well as bilirubin. Troponin is elevated at 0.37. ProBNP is elevated to 38,000 Urinalysis showing 3+ protein, large blood, RBC 127, WBC 27. Urine test is negative. Urine drug screen is positive for opioids EKG showing sinus tachycardia at [address]-T changes Chest x-ray: Acute pulmonary edema Computed tomography scan of the head and neck: Normal cervical spine with no fracture and normal CT of the brain by radiologist In the emergency room she received IV fluids with normal saline, vancomycin and ceftriaxone and ibuprofen and IV Tylenol, Dilaudid and lorazepam and succi nylcholine 02/10/2022 Patient is a pleasant 36 years old female was admitted with AMS and acute pul monary edema, she got intubated on admission and entered closely in the ICU with pulmonary/critical care team. Echocardiogram showed evidence of regurgitation on the aortic valve, which is confirmatory with AWDE showed severe aortic regurgitation. Patient's risk factors with subacute bacterial endocarditis with sepsis secondary with Serratia marcescens and blood culture, a patient currently kept o n antibiotics with cefepime. IV vancomycin discontinued. She is also gentle hydration Today several consultants were on the case including pulmonary, cardiology, cardiothoracic surgery infectious disease with recommendation to transfer patient to tertiary care center I discussed the case with MICU fellow at [facility] in [place] Dr. Valladares and I discussed the case with her and she currently accepted the patient depending bed availability. 02/11/2022 Patient remains critically ill in the intensive care unit, she still intubated and on mechanical ventilation. Pulmonary/critical care to follow closely and help with vent management. She remains on broad-spectrum antibiotics of cefepime for positive blood culture with Serratia for her endocarditis I discussed the case with her report MICU team yesterday and they Accepted the patient, pending bed availability. Patient is followed closely by several consultants including cardiology, cardiothoracic and surgery teams as well as infectious disease. And WADE are noted. Review of systems: N/a Active Medications Generic Name Dose Route Start Last Admin Trade Name Freq PRN Reason Stop Dose Admin Propofol 1,000 mg/ IV Solution 100 mls @ 4.355 mls/hr 02/09/22 00:50 02/11/22 10:15 IV 0 mcg/kg/min .[id number] [facility] 0 mls/hr Titration Protocol 10 MCG/KG/MIN Sodium Chloride 1,000 mls @ 20 mls/hr 02/09/22 09:45 02/11/22 05:00 Saline 0.9% IV 20 mls/hr .Q24H [facility] Administration Cefepime HCl 2 gm/ Sodium 100 mls @ 25 mls/hr 02/10/22 00:00 02/11/22 16:49 Chloride IVPB 25 mls/hr Q8HR [facility] Administration Protocol Miscellaneous Information 1 each 02/09/22 04:29 Potassium Replacement Protocol 1 Each Misc MISCELLANE DAILY PRN Per Protocol Protocol Naloxone HCl 0.2 mg 02/09/22 02:38 Naloxone 0.4 Mg/Ml 1 Ml Vial IV Q2M PRN Opioid Reversal Pantoprazole Sodium 40 mg 02/09/22 09:00 02/11/22 09:29 Pantoprazole 40 Mg/10 Ml Vial IVP 40 mg DAILY [facility] Administration Objective - Vital Signs Vital signs: Vital Signs Temp 98.4 F 02/11/22 04:00 Pulse 78 02/11/22 07:00 Resp 16 02/11/22 07:00 BP 123/57 02/11/22 07:00 Pulse Ox 99 02/11/22 07:00 FiO2 40 02/11/22 07:20 Intake & Output 02/10/22 02/11/22 02/11/22 18:59 06:59 18:59 Intake Total 965.278 830.193 30 Output Total 1490 1575 60 Balance -524.722 -744.807 -30 Weight 78 kg 75.2 kg Intake: IV 370 280 20 Cefepime 2 gm In Sodium 100 100 Chloride 0.9% 100 ml @ 25 mls/hr IVPB Q8HR [facility] Rx# :[id number] Sodium Chloride 0.9% 1, 270 180 20 000 ml @ 20 mls/hr IV . Q24H [facility] Rx#:[id number] Intake, IV Titration 285.278 170.193 Amount ACETAMINOPHEN IV (For NPO 100 ) 1,000 mg In Empty Bag 1 bag @ 400 mls/hr IVPB Q6HR [facility] Rx#:[id number] propofoL 1,000 mg In 185.278 170.193 Empty Bag 1 bag @ 10 MCG/ KG/MIN 4.355 mls/hr IV . [id number] [facility] Rx#:[id number] Tube Feeding 40 10 Blood Product 310 310 Rc As-1 Unit 310 [id number] Rc As-1 Unit 0 310 [id number] Other 30 Output: Gastric Drainage 70 Urine 1420 1575 60 Other: Voiding Method Indwelling Catheter Indwelling Catheter # Bowel Movements 1 1 - Exam GENERAL: The patient is sedated and intubated HEENT: Pupils are round and equally reacting to light. EOMI. No scleral icterus. No conjunctival pallor. Normocephalic, atraumatic. No pharyngeal erythema. No thyromegaly. -CARDIOVASCULAR: S1 and S2 present. Systolic murmurs, rubs, or gallops. PULMONARY: Chest is clear to auscultation, no wheezing or crackles. ABDOMEN: Soft, nontender, nondistended, normoactive bowel sounds. No palpable organomegaly. MUSCULOSKELETAL: No joint swelling or deformity. EXTREMITIES: No cyanosis, clubbing, or pedal edema. NEUROLOGICAL: Gross neurological examination did not reveal any focal deficits. SKIN: No rashes. no petechiae. - Labs CBC & Chem 7: 02/11/22 06:06 02/11/22 17:12 Labs: Abnormal Lab Results - Last 24 Hours (Table) 02/09/22 02/10/22 02/10/22 Range/Units 00:13 06:28 11:52 WBC (3.8-10.6) k/uL RBC (3.80-5.40) m/uL Hgb (11.4-16.0) gm/dL Hct (34.0-46.0) % MCV (80.0-100.0) fL MCH (25.0-35.0) pg MCHC (31.0-37.0) g/dL RDW (11.5-15.5) % Plt Count (150-450) k/uL Lymphocytes # (1.0-4.8) k/uL ABG pH (7.35-7.45) ABG pCO2 (35-45) mmHg ABG pO2 (83-108) mmHg ABG Total CO2 (19-24) mmol/L ABG O2 Saturation (94-97) % Potassium (3.5-5.1) mmol/L Chloride (98-107) mmol/L BUN (7-17) mg/dL Glucose (74-99) mg/dL POC Glucose (mg/dL) 116 H (70-110) mg/dL Calcium (8.4-10.2) mg/dL Total Protein (6.3-8.2) g/dL Albumin (3.5-5.0) g/dL Procalcitonin 7.18 H (0.02-0.09) ng/mL Crossmatch See Detail 02/10/22 02/10/22 02/11/22 Range/Units 13:33 17:49 06:00 WBC 3.3 L (3.8-10.6) k/uL RBC 2.91 L (3.80-5.40) m/uL Hgb 6.5 L* D (11.4-16.0) gm/dL Hct 21.4 L (34.0-46.0) % MCV 73.5 L (80.0-100.0) fL MCH 22.4 L (25.0-35.0) pg MCHC 30.5 L (31.0-37.0) g/dL RDW 22.0 H (11.5-15.5) % Plt Count 98 L (150-450) k/uL Lymphocytes # (1.0-4.8) k/uL ABG pH 7.47 H (7.35-7.45) ABG pCO2 34 L (35-45) mmHg ABG pO2 162 H (83-108) mmHg ABG Total CO2 26 H (19-24) mmol/L ABG O2 Saturation 100.0 H (94-97) % Potassium (3.5-5.1) mmol/L Chloride (98-107) mmol/L BUN (7-17) mg/dL Glucose (74-99) mg/dL POC Glucose (mg/dL) 114 H (70-110) mg/dL Calcium (8.4-10.2) mg/dL Total Protein (6.3-8.2) g/dL Albumin (3.5-5.0) g/dL Procalcitonin (0.02-0.09) ng/mL Crossmatch 02/11/22 02/11/22 Range/Units 06:06 06:06 WBC 3.0 L (3.8-10.6) k/uL RBC (3.80-5.40) m/uL Hgb 9.1 L D (11.4-16.0) gm/dL Hct 30.1 L (34.0-46.0) % MCV 76.9 L (80.0-100.0) fL MCH 23.3 L (25.0-35.0) pg MCHC 30.3 L (31.0-37.0) g/dL RDW 21.1 H (11.5-15.5) % Plt Count 94 L (150-450) k/uL Lymphocytes # 0.2 L (1.0-4.8) k/uL ABG pH (7.35-7.45) ABG pCO2 (35-45) mmHg ABG pO2 (83-108) mmHg ABG Total CO2 (19-24) mmol/L ABG O2 Saturation (94-97) % Potassium 3.2 L (3.5-5.1) mmol/L Chloride 112 H (98-107) mmol/L BUN 24 H (7-17) mg/dL Glucose 107 H (74-99) mg/dL POC Glucose (mg/dL) (70-110) mg/dL Calcium 7.5 L (8.4-10.2) mg/dL Total Protein 5.6 L (6.3-8.2) g/dL Albumin 2.2 L (3.5-5.0) g/dL Procalcitonin (0.02-0.09) ng/mL Crossmatch Microbiology - Last 24 Hours (Table) 02/09/22 00:13 Blood Culture Gram Stain - Preliminary Blood Blood Culture - Preliminary Gram Neg Bacilli 02/09/22 00:03 Blood Culture Gram Stain - Preliminary Blood Blood Culture - Preliminary Serratia marcescens 02/09/22 10:13 Blood Culture - Preliminary Blood No Growth after 24 hours 02/09/22 00:00 Urine Culture - Final Urine,Voided Assessment and Plan Assessment: Subacute bacterial endocarditis Severe aortic regurgitation secondary to above Sepsis with fever and tachypnea Acute hypoxic respiratory failure requiring intubation and mechanical ventilation Metabolic encephalopathy Acute pulmonary edema, could be acute CHF versus RDS Severe anemia, microcytic hyperchromic requiring blood transfusion 4 Elevated troponin Plan: This is a pleasant 56 years old female who presents with AMS, on mechanical ventilation, anemia continue with mechanical ventilation with pulmonary/critical care team consult Monitor hemoglobin, and transfuse as needed Discussed the case with [facility], patient that accepted for transfer pending bed availability Continue with cefepime Several consultants on the case including infectious disease, pulmonary/critical care, cardiology, cardiothoracic surgery continue with IV fluids Labs and medication were reviewed.. Continue same treatment. Continue with symptomatic treatment. Resume home medication. Monitor lytes and vitals. DVT and GI prophylaxis. Further recommendations as per clinical course of the patient DVT prophylaxis: no Subcutaneous heparin in view of severe anemia GI Prophylaxis: Ppi Prognosis is guarded
[2022-02-11] MEDS: ACETAMINOPHEN TAB 500 MG TAB PO PRN (22:43)
[2022-02-11 23:36] LABS: Glucose,Whole Blood 164 mg/dL (70-110)
[2022-02-12 05:50] LABS: Glucose,Whole Blood 119 mg/dL (70-110)
[2022-02-12] MEDS: SODIUM CHLORIDE 0.9% 1,000 ML IV SCH (05:58)
[2022-02-12 07:00] LABS: Anisocytosis Moderate; Basophils % (A) 1 %; Eosinophils % (A) 1 %; HCT 29.4 % (34.0-46.0); HGB 9.2 gm/dL (11.4-16.0); Hypochromasia Marked; Lymphocytes # (A) 0.4 k/uL (1.0-4.8); Lymphocytes % (A) 9 %; MCH 23.4 pg (25.0-35.0); MCHC 31.3 g/dL (31.0-37.0); MCV 74.7 fL (80.0-100.0); Mean Platelet Volume 7.8; Microcytosis Marked; Monocytes # (A) 0.3 k/uL (0-1.0); Monocytes % (A) 8 %; Neutrophils # (A) 3.4 k/uL (1.3-7.7); Neutrophils % (A) 80 %; Poikilocytosis Moderate; RBC 3.94 m/uL (3.80-5.40); RDW 20.9 % (11.5-15.5); WBC 4.3 k/uL (3.8-10.6)
[2022-02-12 07:02] LABS: Platelet Count 93 k/uL (150-450)
[2022-02-12 07:32] LABS: Albumin 2.2 g/dL (3.5-5.0); Calcium 7.4 mg/dL (8.4-10.2); Potassium 3.7 mmol/L (3.5-5.1); Total Bilirubin 0.6 mg/dL (0.2-1.3); Total Protein 5.4 g/dL (6.3-8.2)
--- NOTE | 2022-02-12 07:57 | XR ---
EXAMINATION TYPE: XR chest 1V portable DATE OF EXAM: 02/12/2022 Comparison: 02/11/2022 Clinical History: 36-year-old female Tube placement Findings: Heart upper limits of normal in size. Interval extubation and removal of NG tube. Diffuse interstitia l opacity with Radha B lines redemonstrated. Patchy opacity at the right base is increasing. Impression: Borderline cardiomegaly and continued diffuse interstitial change. Radha B lines are now apparent an d there is increasing right basilar opacity. Correlate for CHF with developing interstitial pulmonary edema.
[2022-02-12] MEDS: PANTOPRAZOLE 40 MG/10 ML VIAL IVP SCH (09:29)
[2022-02-12] MEDS: CEFEPIME 2 GM in SODIUM CHLORIDE 0.9% 100 ML IVPB SCH ×2 (09:29→16:30)
[2022-02-12] MEDS ORDERED: POTASSIUM CHLORIDE ER 20 MEQ TAB.ER PO SCH (09:30)
--- NOTE | 2022-02-12 09:45 | P.PN ---
Subjective Progress Note Date: 02/12/22 PROGRESS NOTE The patient is a 36-year-old female who presented with progressive dyspnea, change in mental status requiring mechanical ventilation. She was febrile and had positive blood cultures. She was recently discharged from [facility] with diarrhea and positive blood cultures as well with change in mental status. Her echocardiogram performed yesterday showed possible aortic valve vegetations that was confirmed on the transesophageal echocardiogram with severe aortic regurgitation and a tricuspid aortic valve. She had moderate mitral regurgitation. Her echocardiogram at [facility] on January 25 showed a normal systolic function with trace aortic regurgitation and no mention of vegetations. She had at [facility] evidence of splenic infarct and colitis as well has severe anemia. She continues to be intubated, tachycardic at times. Her blood pressure is stable. The color of her urine is better. There is no evidence of malignant arrhythmia. She continues to be febrile. Her urinary output is good. Her blood cultures were positive for Se rratia Marcescens which is the same bacteria noted at [facility]. She was seen by the cardiovascular team yesterday. Her computed tomography scan of the abdomen showed moderately severe hepatosplenomegaly was bilateral enlargement of the kidneys. She had cardiomegaly with pleural effusion and basilar pulmonary infiltrate atelectasis. No suggestion of colitis was noted. February 11: The patient remains intubated and sedated, in sinus mechanism, hemodynamically stable on no vasopressors. She has good urinary output. There is no evidence of malignant arrhythmia. Her blood pressure were positive for Serratia marcescens. She is afebrile. Her echocardiogram showed severe aortic regurgitation with evidence of vegetation on a tricuspid aortic valve and question of ulceration noted. Her systolic function was 50-55%. On the echocardiogram performed at [facility] recently there is no documentation of the vegetation and she had trace AI. The patient is being evaluated to be transferred to tertiary care hospital for further treatment. February 12: The patient is extubated, hemodynamically stable, denies any chest discomfort, dizziness or palpitations. She continues to be in sinus mechanism. She had no evidence of atrial arrhythmia. She cannot recall the episode prior to admission. She denies any knowledge of valvular problem in the past. She denie s any history of IV drug abuse. She remains afebrile. Her urinary output has been stable. She received one dose of IV Lasix yesterday. Repeat blood culture from February 09 showed no growth after 48 hours. Medications: Cefepime, protonix, vancomycin PHYSICAL EXAMINATION: 36-year-old female alert and oriented Blood pressure 126/57 heart rate 82 LUNGS: Clear to auscultation anteriorly HEART: Regular rate and rhythm, S1, S2. No S3. systolic ejection murmur with diastolic murmur at the base 2/6 ABDOMEN: Soft, positive bowel sounds, no organomegaly EXTREMETIES: No edema LAB: Potassium 3.7, BUN 27, creatinine 0.95, hemoglobin 9.2 IMPRESSION: 1. 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 Colitis and spleen infarct by CAT scan at [facility] 3. Respiratory failure, resolved 4. Change in mental status prior to admission related to the sepsis 5. Anemia, most likely related to the infectious process, improved 6. Abnormal renal functions, resolved PLAN: 1. IV antibiotics per infectious disease 2. It is possible that her splenic infarct is related to a septic emboli 3. Continue supportive care 4. Close follow-up of her pulmonary status to see if further diuresis is needed. It is very likely that the patient would require aortic valve surgery i n view of the severe aortic regurgitation. I discussed those findings with her. Objective - Vital Signs Vital signs: Vital Signs Temp 98.3 F 02/12/22 04:00 Pulse 80 02/12/22 07:00 Resp 27 H 02/12/22 07:00 BP 130/52 02/12/22 07:00 Pulse Ox 96 02/12/22 07:00 FiO2 40 02/11/22 10:45 Intake & Output 02/11/22 02/12/22 02/12/22 18:59 06:59 18:59 Intake Total 459.979 980 Output Total 2420 645 Balance -1960.021 335 Weight 75.3 kg Intake: IV 300 260 Cefepime 2 gm In Sodium 200 100 Chloride 0.9% 100 ml @ 25 mls/hr IVPB Q8HR [facility] Rx# :[id number] Sodium Chloride 0.9% 1, 100 160 000 ml @ 20 mls/hr IV . Q24H [facility] Rx#:[id number] Intake, IV Titration 109.979 Amount propofoL 1,000 mg In 109.979 Empty Bag 1 bag @ 10 MCG/ KG/MIN 4.355 mls/hr IV . [id number] [facility] Rx#:[id number] Oral 720 Tube Feeding 20 Other 30 Output: Urine 2420 645 Other: Voiding Method Indwelling Catheter Indwelling Catheter - Labs CBC & Chem 7: 02/12/22 06:18 02/12/22 06:18 Labs: Abnormal Lab Results - Last 24 Hours (Table) 02/11/22 02/11/22 02/12/22 Range/Units 18:48 23:34 05:48 Hgb (11.4-16.0) gm/dL Hct (34.0-46.0) % MCV (80.0-100.0) fL MCH (25.0-35.0) pg RDW (11.5-15.5) % Plt Count (150-450) k/uL Lymphocytes # (1.0-4.8) k/uL Chloride (98-107) mmol/L BUN (7-17) mg/dL Glucose (74-99) mg/dL POC Glucose (mg/dL) 126 H 164 H 119 H (70-110) mg/dL Calcium (8.4-10.2) mg/dL Alkaline Phosphatase (38-126) U/L Total Protein (6.3-8.2) g/dL Albumin (3.5-5.0) g/dL 02/12/22 02/12/22 Range/Units 06:18 06:18 Hgb 9.2 L (11.4-16.0) gm/dL Hct 29.4 L (34.0-46.0) % MCV 74.7 L (80.0-100.0) fL MCH 23.4 L (25.0-35.0) pg RDW 20.9 H (11.5-15.5) % Plt Count 93 L (150-450) k/uL Lymphocytes # 0.4 L (1.0-4.8) k/uL Chloride 112 H (98-107) mmol/L BUN 27 H (7-17) mg/dL Glucose 118 H (74-99) mg/dL POC Glucose (mg/dL) (70-110) mg/dL Calcium 7.4 L (8.4-10.2) mg/dL Alkaline Phosphatase 30 L (38-126) U/L Total Protein 5.4 L (6.3-8.2) g/dL Albumin 2.2 L (3.5-5.0) g/dL Microbiology - Last 24 Hours (Table) 02/09/22 00:13 Blood Culture Gram Stain - Final Blood Blood Culture - Final Serratia marcescens 02/09/22 00:03 Blood Culture Gram Stain - Final Blood Blood Culture - Final Serratia marcescens 02/09/22 10:13 Blood Culture - Preliminary Blood No Growth after 48 hours
--- NOTE | 2022-02-12 09:47 | P.PN ---
Subjective Progress Note Date: 02/11/22 Principal diagnosis: Gram-negative bacteremia and aortic valve endocarditis Patient is a 36 year female presenting to the hospital with acute respiratory failure in this patient to have evidence of gram-negative bacteremia and there was concern for vegetation on the aortic valve on today's evaluation that is 02/11/2022, the patient remains to be afebrile, the patient has been extubated and is breathing comfortably on nasal cannula oxygen, the patient is hemodynamically stable not requiring any pressor support, the patient denies any chest pain or shortness of breath occasional cough no abdominal pain no diarrhea is reported Objective - Vital Signs Vital signs: Vital Signs Temp 98.3 F 02/11/22 12:00 Pulse 87 02/11/22 15:00 Resp 20 02/11/22 15:00 BP 132/54 02/11/22 15:00 Pulse Ox 100 02/11/22 15:00 FiO2 40 02/11/22 10:45 Intake & Output 02/10/22 02/11/22 02/11/22 18:59 06:59 18:59 Intake Total 965.278 830.193 359.979 Output Total 1490 1575 2230 Balance -524.722 -744.807 -1870.021 Weight 78 kg 75.2 kg Intake: IV 370 280 200 Cefepime 2 gm In Sodium 100 100 100 Chloride 0.9% 100 ml @ 25 mls/hr IVPB Q8HR [facility] Rx# :[id number] Sodium Chloride 0.9% 1, 270 180 100 000 ml @ 20 mls/hr IV . Q24H [facility] Rx#:[id number] Intake, IV Titration 285.278 170.193 109.979 Amount ACETAMINOPHEN IV (For NPO 100 ) 1,000 mg In Empty Bag 1 bag @ 400 mls/hr IVPB Q6HR [facility] Rx#:[id number] propofoL 1,000 mg In 185.278 170.193 109.979 Empty Bag 1 bag @ 10 MCG/ KG/MIN 4.355 mls/hr IV . [id number] [facility] Rx#:[id number] Tube Feeding 40 20 Blood Product 310 310 Rc As-1 Unit 310 [id number] Rc As-1 Unit 0 310 [id number] Other 30 30 Output: Gastric Drainage 70 Urine 1420 1575 2230 Other: Voiding Method Indwelling Catheter Indwelling Catheter Indwelling Catheter # Bowel Movements 1 1 - Exam GENERAL DESCRIPTION: Middle-aged female lying in bed in no distress RESPIRATORY SYSTEM: Unlabored breathing , decreased breath sounds at bases HEART: S1 S2 regular rate and rhythm , ABDOMEN: Soft , no tenderness EXTREMITIES: No edema feet - Labs CBC & Chem 7: 02/12/22 06:18 02/12/22 06:18 Labs: Abnormal Lab Results - Last 24 Hours (Table) 02/09/22 02/10/22 02/11/22 Range/Units 00:13 17:49 06:00 WBC (3.8-10.6) k/uL Hgb (11.4-16.0) gm/dL Hct (34.0-46.0) % MCV (80.0-100.0) fL MCH (25.0-35.0) pg MCHC (31.0-37.0) g/dL RDW (11.5-15.5) % Plt Count (150-450) k/uL Lymphocytes # (1.0-4.8) k/uL ABG pH 7.47 H (7.35-7.45) ABG pCO2 34 L (35-45) mmHg ABG pO2 162 H (83-108) mmHg ABG Total CO2 26 H (19-24) mmol/L ABG O2 Saturation 100.0 H (94-97) % Potassium (3.5-5.1) mmol/L Chloride (98-107) mmol/L BUN (7-17) mg/dL Glucose (74-99) mg/dL POC Glucose (mg/dL) 114 H (70-110) mg/dL Calcium (8.4-10.2) mg/dL Total Protein (6.3-8.2) g/dL Albumin (3.5-5.0) g/dL Crossmatch See Detail 02/11/22 02/11/22 Range/Units 06:06 06:06 WBC 3.0 L (3.8-10.6) k/uL Hgb 9.1 L D (11.4-16.0) gm/dL Hct 30.1 L (34.0-46.0) % MCV 76.9 L (80.0-100.0) fL MCH 23.3 L (25.0-35.0) pg MCHC 30.3 L (31.0-37.0) g/dL RDW 21.1 H (11.5-15.5) % Plt Count 94 L (150-450) k/uL Lymphocytes # 0.2 L (1.0-4.8) k/uL ABG pH (7.35-7.45) ABG pCO2 (35-45) mmHg ABG pO2 (83-108) mmHg ABG Total CO2 (19-24) mmol/L ABG O2 Saturation (94-97) % Potassium 3.2 L (3.5-5.1) mmol/L Chloride 112 H (98-107) mmol/L BUN 24 H (7-17) mg/dL Glucose 107 H (74-99) mg/dL POC Glucose (mg/dL) (70-110) mg/dL Calcium 7.5 L (8.4-10.2) mg/dL Total Protein 5.6 L (6.3-8.2) g/dL Albumin 2.2 L (3.5-5.0) g/dL Crossmatch Microbiology - Last 24 Hours (Table) 02/09/22 00:13 Blood Culture Gram Stain - Final Blood Blood Culture - Final Serratia marcescens 02/09/22 00:03 Blood Culture Gram Stain - Final Blood Blood Culture - Final Serratia marcescens 02/09/22 10:13 Blood Culture - Preliminary Blood No Growth after 48 hours Assessment and Plan (1) Sepsis Current Visit: Yes Status: Acute Code(s): A41.9 - SEPSIS, UNSPECIFIED ORGANISM SNOMED Code(s): 98428423 Plan: 1patient presented to hospital with sepsis in this patient did have a fever tachycardia tachypnea now with evidence of vegetation on aortic wall likely secondary to endocarditis, blood culture has been finalized and Serratia was some 2patient to continue with the cefepime and vancomycin has been discontinued blood culture has been repeated to document clearance of her bacteremia Time with Patient: Less than 30
--- NOTE | 2022-02-12 11:07 | P.PN ---
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 Note that no records are available regarding this most recent hospitalization. The patient was quite sick and she presented to the emergency department with acute respiratory failure and she was found to be in pulmonary edema, immediately intubated and placed on a mechanical ventilator. Patient accordingly was transferred to the intensive care unit for further workup. Note that, a CAT scan of the brain that was done in the emergency along with a CAT scan of the cervical spine were negative. Unfortunately, no documentation unavailable from our emergency department regarding the details of the treatment and her presentation. I was involved in this patient's care and I saw her in the intensive care unit. She was already on propofol and she wasn't well sedated and Profore was running at 35 mcg/kg per minute. At the same time, the patient was in the mechanical ventilator on assist control mode at the rate of 16 with a tidal volume of 350 and FiO2 of 40% with a PEEP of 5. I saw the morning blood gases showed a pH of 7.44 with a pCO2 of 37 and pO2 159 and this was done and FiO2 of 50%. The patient had a proBNP level of 33,000, the patient's white cell count was 7.3 with hemoglobin of 8.3 after being transfused with a total of 2 units of packed RBC 4 hemoglobin of 6.9. The platelet count was 135. The patient also developed an acute kidney injury in the creatinine was up to 1.3. The patient had a troponin level of 0.37. No pressors were utilized overnight. On examination, the patient had a holosystolic murmur and a Echocardiogram showed moderate degree of aortic regurgitation with mitral stenosis and there was an echodense lesion attached to the aortic leaflets consistent with vegetation. Immediately cardiology was involved and the patient was given a WADE that confirmed the presence of infective endocarditis and the patient evidence of vegetation of the aortic valve with severe aortic regurgitation and normal appearing mitral valve and normal ejection fraction. The patient was already given a combination of vancomycin and Rocephin. The permanent blood cultures are showing gram-negative bacillus. currently she is well sedated and the patient is calm and comfortable on no pressors. 02/10 2022, patient is being seen for a follow-up. The patient's critically ill and the patient is in the intensive care unit for now intubated on a mechanical ventilator. Based on the records from [facility], the patient was hospitalized there for diarrhea and abdominal pain and the patient was found to be septic with Serratia marcescens. The patient was discharged home after being given a combination of Flagyl and Cipro. Note that echocardiogram wasn't at that time and there was no evidence of any vegetation and there was mild aortic regurgitation. The patient also has undergone further workup including CAT scan of the abdomen that showed splenic infarct. The patient currently is septic with the same microorganism. Blood cultures positive for Serratia. The patient is currently on IV cefepime. At the same time, the patient remains intubated on mechanical ventilator. This morning, the patient remains off of 50 mg/kg per minute and the patient is also well sedated on mechanical ventilator on assist control mode at the rate of 16 with tidal volume of a 50 FiO2 of 40% with a PEEP of 5. Blood gases showed a pH of 7.49 with a pCO2 of 33 and pO2 187. Chest x-ray shows residual interstitial edema bilaterally more so on the right and the patient has an adequate positioning of the orotracheal tube. The patient is on no pressors. She is hemodynamic is stable. Once it was at 4.7 with a hemoglobin of 8.3 and a platelet count of 92. The sodium is at 136 with a mean of 26 and a creatinine of 1.2. The patient is currently on normal saline at rate of 20 mL an hour. No other significant issues for now. Discussed the case with the cardiothoracic team and cardiology. The patient is being considered to be transferred to a tertiary care center regarding the complexity of her infective endocarditis. Meanwhile, the patient was also seen by general surgery. CAT scan of the abdomen was also done that showed no acute abnormalities. The patient was found to have some atelectatic changes small bilateral pleural effusion lung bases. This tonic infarct was not seen. There was no acute intra-abdominal abnormalities of colitis seen on repeat CAT scan of the abdomen. No intra-abdominal abscesses. 02/11/2022, the patient remains on a mechanical ventilator. Attempts were made to transfer this patient to [facility]. Unfortunately, due to bad situations, patient was unable to transfer. As such, the patient stayed with us. She was accepted to go to transfer to [facility] and this did not happen. Meanwhile, the patient remains hemodynamically stable. This morning to the performed today to 55 mcg/kg per minute. She is on assist control mode at the rate of 16 with a tidal volume of 450 and FiO2 of 40% with a PEEP of 5. She is hemodynamically stable and she has not required any pressors. She without enteral feeding for nutritional support and she is currently on vital AF this is an hour. The patient has no fever. White cell count is at 3 with a hemoglobin of 9.1. The blood gases from today shows a pH of 7.47 with a pCO2 of 34 and pO2 of 162. Recent electrolytes are stable and the renal function is also stable with a creatinine of 0.9 and a BUN of 24 and a sodium level of 144. She is on IV cefepime regarding Serratia endocarditis and sepsis. Overall fluid balance is -1.2 L in the chest x-ray still showing interstitial edema ET tube is in a good location. Note that hemoglobin also dropped down to 6.5. The patient received a total of 2 units of packed RBC in the morning hemoglobin is up in 1 is currently stable. No signs of any bleeding. No fever. No chills. No hemoptysis. 02/12/2022, the patient is extubated. The patient is currently on room air oxygen. Chest x-ray shows some increased interstitial markings and some right perihilar fullness, likely vascular in nature. The patient remains on IV cefepime. Awaiting follow-up cultures. Hemodynamically stable. The patient is afebrile. No confusion. Altered mentation. Upon further questioning, the patient denies using IV drugs. The patient's white cell count is at 4.3 with a hemoglobin 9.2. BUN is at 27 with a creatinine of 0.9 and sodium level is 144. No other complaints otherwise. Neurologically intact. Objective - Vital Signs Vital signs: Vital Signs Temp 98.3 F 02/12/22 04:00 Pulse 80 02/12/22 07:00 Resp 27 H 02/12/22 07:00 BP 130/52 02/12/22 07:00 Pulse Ox 96 02/12/22 07:00 FiO2 40 02/11/22 10:45 Intake & Output 02/11/22 02/12/22 02/12/22 18:59 06:59 18:59 Intake Total 459.979 980 Output Total 2420 645 Balance -1960.021 335 Weight 75.3 kg Intake: IV 300 260 Cefepime 2 gm In Sodium 200 100 Chloride 0.9% 100 ml @ 25 mls/hr IVPB Q8HR [facility] Rx# :[id number] Sodium Chloride 0.9% 1, 100 160 000 ml @ 20 mls/hr IV . Q24H [facility] Rx#:[id number] Intake, IV Titration 109.979 Amount propofoL 1,000 mg In 109.979 Empty Bag 1 bag @ 10 MCG/ KG/MIN 4.355 mls/hr IV . [id number] [facility] Rx#:[id number] Oral 720 Tube Feeding 20 Other 30 Output: Urine 2420 645 Other: Voiding Method Indwelling Catheter Indwelling Catheter - Exam Awake alert on room air oxygen Head exam was generally normal. There was no scleral icterus or corneal arcus. Mucous membranes were moist. Neck was supple and with jugular venous distension, thyromegaly, or carotid bruits. Carotids were easily palpable bilaterally. There was no adenopathy.. The patient has positive JVDs. No goiter or neck masses. Examination of the heart revealed a harsh systolic murmur, pansystolic easily heard over the precordium especially in the left apex and left lower leg. Lungs were clear to auscultation and percussion, and with normal diaphragmatic excursion. No wheezes or rales were noted. Abdominal exam revealed normal bowel sounds. The abdomen was soft, non-tender, and without masses, organomegaly, or appreciable enlargement of the abdominal aorta. Examination of the extremities revealed easily palpable radial, femoral and pedal pulses. There was no cyanosis, clubbing or edema. Examination of the skin revealed no evidence of significant rashes, suspicious appearing nevi or other concerning lesions. Neurologically, the patient is awake and alert and the patient does not have any focal neurological deficit. Cranial nerves are essentially intact. - Labs CBC & Chem 7: 02/12/22 06:18 02/12/22 06:18 Labs: Abnormal Lab Results - Last 24 Hours (Table) 02/11/22 02/11/22 02/12/22 Range/Units 18:48 23:34 05:48 Hgb (11.4-16.0) gm/dL Hct (34.0-46.0) % MCV (80.0-100.0) fL MCH (25.0-35.0) pg RDW (11.5-15.5) % Plt Count (150-450) k/uL Lymphocytes # (1.0-4.8) k/uL Chloride (98-107) mmol/L BUN (7-17) mg/dL Glucose (74-99) mg/dL POC Glucose (mg/dL) 126 H 164 H 119 H (70-110) mg/dL Calcium (8.4-10.2) mg/dL Alkaline Phosphatase (38-126) U/L Total Protein (6.3-8.2) g/dL Albumin (3.5-5.0) g/dL 02/12/22 02/12/22 Range/Units 06:18 06:18 Hgb 9.2 L (11.4-16.0) gm/dL Hct 29.4 L (34.0-46.0) % MCV 74.7 L (80.0-100.0) fL MCH 23.4 L (25.0-35.0) pg RDW 20.9 H (11.5-15.5) % Plt Count 93 L (150-450) k/uL Lymphocytes # 0.4 L (1.0-4.8) k/uL Chloride 112 H (98-107) mmol/L BUN 27 H (7-17) mg/dL Glucose 118 H (74-99) mg/dL POC Glucose (mg/dL) (70-110) mg/dL Calcium 7.4 L (8.4-10.2) mg/dL Alkaline Phosphatase 30 L (38-126) U/L Total Protein 5.4 L (6.3-8.2) g/dL Albumin 2.2 L (3.5-5.0) g/dL Microbiology - Last 24 Hours (Table) 02/09/22 00:13 Blood Culture Gram Stain - Final Blood Blood Culture - Final Serratia marcescens 02/09/22 00:03 Blood Culture Gram Stain - Final Blood Blood Culture - Final Serratia marcescens 02/09/22 10:13 Blood Culture - Preliminary Blood No Growth after 48 hours Assessment and Plan Plan: 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 The patient was also bacteremic and septic on a previous hospitalization [facility] with the same microorganism. At that time, the patient mild aortic regurgitation without any significant vegetations seen on echocardiogram. The patient remains significant for now. The patient is hemodynamically stable on no pressors. Sepsis secondary to Serratia marcescens and infective endocarditis. CAT scan of the abdomen showed septic infarct of the spleen, currently inactive in stable on no pressors Acute severe aortic regurgitation secondary to infective endocarditis Acute pulmonary edema secondary to above, patient is post acute hypoxic respiratory failure and ventilator dependence, extubated yesterday and currently she is on room air oxygen Acute hypoxic respiratory failure secondary to above, recovered Acute on chronic anemia, hemoglobin was 6.9 and the patient was given a total of 2 units of packed RBCs, subsequent hemoglobin dropped down to 6.5 and the patient was given 2 additional units of packed RBC. Making a total of 4 units of packed RBC Altered mentation probably related to metabolic encephalopathy. CAT scan of the brain is negative, currently sedated on propofol Acute kidney injury, possibly due to sepsis/infective endocarditis. 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 Splenic infarct probably related to septic embolism Questionable IV drug use Plan Patient is on room air oxygen extubated yesterday on 02/11/2022 Continue IV cefepime Repeat cultures were sent, results are still pending Once cultures are negative we'll insert a PICC line for long-term antibiotic treatment CV surgery is on the case Transferred to tertiary care center is currently on hold The patient is awake and alert and oriented and there neurologic functions are stable We'll continue to follow
--- NOTE | 2022-02-12 19:27 | P.PN ---
Subjective This is a pleasant 56 years old female with past medical history of anxiety, PTSD, presents with altered mental status. She is a patient of Dr. Vizcarra. Patient was admitted in the ICU from the emergency room, patient could not provide information which were obtained from medical records and staff. per ems pt was recently at [place] for a blood infection. pt's last known well was last night at 10:30pm. pt found by family this evening altered. Patient was intubated in the emergency room Patient had a fever of 103 on admission, she is tachypneic 29-31, blood pressure 107/53 Labs reviewed on admission, WBC 8.7, low hemoglobin 6.9, low platelet 120, with thrombocytopenia which is mild ESR is elevated at 90, CRP elevated 8.9 PH normal 7.4, pCO2 normal at 37 INR 1.2 Sodium 132, potassium 3.2, creatinine 1.0. Liver enzymes are normal as well as bilirubin. Troponin is elevated at 0.37. ProBNP is elevated to 38,000 Urinalysis showing 3+ protein, large blood, RBC 127, WBC 27. Urine test is negative. Urine drug screen is positive for opioids EKG showing sinus tachycardia at [address]-T changes Chest x-ray: Acute pulmonary edema Computed tomography scan of the head and neck: Normal cervical spine with no fracture and normal CT of the brain by radiologist In the emergency room she received IV fluids with normal saline, vancomycin and ceftriaxone and ibuprofen and IV Tylenol, Dilaudid and lorazepam and succi nylcholine 02/10/2022 Patient is a pleasant 36 years old female was admitted with AMS and acute pul monary edema, she got intubated on admission and entered closely in the ICU with pulmonary/critical care team. Echocardiogram showed evidence of regurgitation on the aortic valve, which is confirmatory with WADE showed severe aortic regurgitation. Patient's risk factors with subacute bacterial endocarditis with sepsis secondary with Serratia marcescens and blood culture, a patient currently kept o n antibiotics with cefepime. IV vancomycin discontinued. She is also gentle hydration Today several consultants were on the case including pulmonary, cardiology, cardiothoracic surgery infectious disease with recommendation to transfer patient to tertiary care center I discussed the case with MICU fellow at [facility] in [employer] Dr. Valladares and I discussed the case with her and she currently accepted the patient depending bed availability. 02/11/2022 Patient remains critically ill in the intensive care unit, she still intubated and on mechanical ventilation. Pulmonary/critical care to follow closely and help with vent management. She remains on broad-spectrum antibiotics of cefepime for positive blood culture with Serratia for her endocarditis I discussed the case with her report MICU team yesterday and they Accepted the patient, pending bed availability. Patient is followed closely by several consultants including cardiology, cardiothoracic and surgery teams as well as infectious disease. And WADE are noted. 02/12/2022 Patient got extubated and currently her respiratory status is stable and at baseline or close to baseline she is not tachypneic or hypoxic. This morning she was still tired and very sleepy and she could not provide information however she started waking up throughout the day and she is alert awake and oriented. Repeat chest x-ray showing clearance of pulmonary edema but there is development of right lower lobe infiltrate. Rest of vitals and labs are stable. She has low-grade temperature of 99.8 today. She is currently on cefepime. I discussed the case again with [facility] center at her report, they informed me her transfer was canceled because [facility] has reached its full capacity. On reviewing this with the staff patient may not needed to be transferred and her aortic valve regurgitation be managed in this facility. However we will follow up with pulmonary/critical care team and surgery teams. Review of systems: N/a Active Medications Generic Name Dose Route Start Last Admin Trade Name Freq PRN Reason Stop Dose Admin Propofol 1,000 mg/ IV Solution 100 mls @ 4.355 mls/hr 02/09/22 00:50 02/11/22 10:15 IV 0 mcg/kg/min .[id number] [facility] 0 mls/hr Titration Protocol 10 MCG/KG/MIN Sodium Chloride 1,000 mls @ 20 mls/hr 02/09/22 09:45 02/11/22 05:00 Saline 0.9% IV 20 mls/hr .Q24H [facility] Administration Cefepime HCl 2 gm/ Sodium 100 mls @ 25 mls/hr 02/10/22 00:00 02/11/22 16:49 Chloride IVPB 25 mls/hr Q8HR [facility] Administration Protocol Miscellaneous Information 1 each 02/09/22 04:29 Potassium Replacement Protocol 1 Each Misc MISCELLANE DAILY PRN Per Protocol Protocol Naloxone HCl 0.2 mg 02/09/22 02:38 Naloxone 0.4 Mg/Ml 1 Ml Vial IV Q2M PRN Opioid Reversal Pantoprazole Sodium 40 mg 02/09/22 09:00 02/11/22 09:29 Pantoprazole 40 Mg/10 Ml Vial IVP 40 mg DAILY [facility] Administration Objective - Vital Signs Vital signs: Vital Signs Temp 99.1 F 02/12/22 08:00 Pulse 82 02/12/22 09:00 Resp 19 02/12/22 09:00 BP 126/57 02/12/22 09:00 Pulse Ox 96 02/12/22 09:00 FiO2 40 02/11/22 10:45 Intake & Output 02/11/22 02/12/22 02/12/22 18:59 06:59 18:59 Intake Total 459.979 980 Output Total 2420 645 Balance -1960.021 335 Weight 75.3 kg Intake: IV 300 260 Cefepime 2 gm In Sodium 200 100 Chloride 0.9% 100 ml @ 25 mls/hr IVPB Q8HR [facility] Rx# :[id number] Sodium Chloride 0.9% 1, 100 160 000 ml @ 20 mls/hr IV . Q24H [facility] Rx#:[id number] Intake, IV Titration 109.979 Amount propofoL 1,000 mg In 109.979 Empty Bag 1 bag @ 10 MCG/ KG/MIN 4.355 mls/hr IV . [id number] [facility] Rx#:[id number] Oral 720 Tube Feeding 20 Other 30 Output: Urine 2420 645 Other: Voiding Method Indwelling Catheter Indwelling Catheter - Exam -GENERAL: The patient is awake and alert but tired HEENT: Pupils are round and equally reacting to light. EOMI. No scleral icterus. No conjunctival pallor. Normocephalic, atraumatic. No pharyngeal erythema. No thyromegaly. -CARDIOVASCULAR: S1 and S2 present. Systolic murmurs, rubs, or gallops. PULMONARY: Chest is clear to auscultation, no wheezing or crackles. ABDOMEN: Soft, nontender, nondistended, normoactive bowel sounds. No palpable organomegaly. MUSCULOSKELETAL: No joint swelling or deformity. EXTREMITIES: No cyanosis, clubbing, or pedal edema. NEUROLOGICAL: Gross neurological examination did not reveal any focal deficits. SKIN: No rashes. no petechiae. - Labs CBC & Chem 7: 02/12/22 06:18 02/12/22 06:18 Labs: Abnormal Lab Results - Last 24 Hours (Table) 02/11/22 02/11/22 02/12/22 Range/Units 18:48 23:34 05:48 Hgb (11.4-16.0) gm/dL Hct (34.0-46.0) % MCV (80.0-100.0) fL MCH (25.0-35.0) pg RDW (11.5-15.5) % Plt Count (150-450) k/uL Lymphocytes # (1.0-4.8) k/uL Chloride (98-107) mmol/L BUN (7-17) mg/dL Glucose (74-99) mg/dL POC Glucose (mg/dL) 126 H 164 H 119 H (70-110) mg/dL Calcium (8.4-10.2) mg/dL Alkaline Phosphatase (38-126) U/L Total Protein (6.3-8.2) g/dL Albumin (3.5-5.0) g/dL 02/12/22 02/12/22 Range/Units 06:18 06:18 Hgb 9.2 L (11.4-16.0) gm/dL Hct 29.4 L (34.0-46.0) % MCV 74.7 L (80.0-100.0) fL MCH 23.4 L (25.0-35.0) pg RDW 20.9 H (11.5-15.5) % Plt Count 93 L (150-450) k/uL Lymphocytes # 0.4 L (1.0-4.8) k/uL Chloride 112 H (98-107) mmol/L BUN 27 H (7-17) mg/dL Glucose 118 H (74-99) mg/dL POC Glucose (mg/dL) (70-110) mg/dL Calcium 7.4 L (8.4-10.2) mg/dL Alkaline Phosphatase 30 L (38-126) U/L Total Protein 5.4 L (6.3-8.2) g/dL Albumin 2.2 L (3.5-5.0) g/dL Microbiology - Last 24 Hours (Table) 02/09/22 00:13 Blood Culture Gram Stain - Final Blood Blood Culture - Final Serratia marcescens 02/09/22 00:03 Blood Culture Gram Stain - Final Blood Blood Culture - Final Serratia marcescens 02/09/22 10:13 Blood Culture - Preliminary Blood No Growth after 48 hours Assessment and Plan Assessment: Subacute bacterial endocarditis Severe aortic regurgitation secondary to above Sepsis with fever and tachypnea Acute hypoxic respiratory failure requiring intubation and mechanical ventilation, she got extubated on 02/28 Metabolic encephalopathy Acute pulmonary edema, could be acute CHF versus RDS Severe anemia, microcytic hyperchromic requiring blood transfusion 4 Elevated troponin Plan: This is a pleasant 56 years old female who presents with AMS, on mechanical ventilation, anemia Respiratory status is a stable Monitor hemoglobin, and transfuse as needed Discussed the case with [facility], patient is for was canceled and the patient sitting in this facility Continue with cefepime Several consultants on the case including infectious disease, pulmonary/critical care, cardiology, cardiothoracic surgery IV fluids were stopped Labs and medication were reviewed.. Continue same treatment. Continue with symptomatic treatment. Resume home medication. Monitor lytes and vitals. DVT and GI prophylaxis. Further recommendations as per clinical course of the patient DVT prophylaxis: no Subcutaneous heparin in view of severe anemia GI Prophylaxis: Ppi Prognosis is guarded
--- NOTE | 2022-02-12 21:16 | P.PN ---
Subjective Progress Note Date: 02/12/22 CHIEF COMPLAINT: Colitis HISTORY OF PRESENT ILLNESS: The patient is a 36-year-old female with complicated history of colitis including valvular vegetation who was about to be transferred to outside facility for further management. Transfer has been canceled. Family is at bedside. She's tolerating clear liquid diet. No fevers or chills. She is sitting up at bedside. ROS: No reports of nausea and vomiting. No bowel movements. No new chest pain. PHYSICAL EXAM: VITAL SIGNS: Reviewed CONSTITUTIONAL: Well developed and in no acute distress. EYES: Conjuctivae without sclera icterus. Extraocular movements grossly intact. HEAD, EARS, NOSE, THROAT: Moist buccal mucosa. Head is atraumatic, normocephalic. Hears conversational speech. No nasal drainage. RESPIRATORY: Non-labored respirations and equal bilateral excursions. CARDIOVASCULAR: Palpable 2+ radial pulses. ABDOMEN: Nontender. MUSCULOSKELETAL: No gross deformity of the lower extremities noted. No clubbing. No cyanosis. SKIN: Good skin turgor. Well perfused. NEUROLOGIC: Cranial nerves II through XII grossly intact. No focal or lateralizing signs. PSYCH: Appropriate affect. Alert and oriented to person, place and time. CLINICAL LABS: Reviewed. WBC normal 3.0 now 4.3. Hemoglobin of 6.5-9.1 now 9.2 MICROBIOLOGY: Blood cultures negative today after 24 hours ASSESSMENT: 1. Sepsis due to valvular vegetation 2. Colitis PLAN: 1. Continue IV antibiotics. 2. Diet as tolerated Objective - Vital Signs Vital signs: Vital Signs Temp 99.8 F H 02/12/22 12:00 Pulse 87 02/12/22 12:00 Resp 14 02/12/22 12:00 BP 124/52 02/12/22 12:00 Pulse Ox 98 02/12/22 12:00 FiO2 40 02/11/22 10:45 Intake & Output 02/11/22 02/12/22 02/12/22 18:59 06:59 18:59 Intake Total 459.979 980 95 Output Total 2420 645 120 Balance -1960.021 335 -25 Weight 75.3 kg Intake: IV 300 260 95 Cefepime 2 gm In Sodium 200 100 75 Chloride 0.9% 100 ml @ 25 mls/hr IVPB Q8HR [facility] Rx# :[id number] Sodium Chloride 0.9% 1, 100 160 20 000 ml @ 20 mls/hr IV . Q24H [facility] Rx#:[id number] Intake, IV Titration 109.979 Amount propofoL 1,000 mg In 109.979 Empty Bag 1 bag @ 10 MCG/ KG/MIN 4.355 mls/hr IV . [id number] [facility] Rx#:[id number] Oral 720 Tube Feeding 20 Other 30 Output: Urine 2420 645 120 Other: Voiding Method Indwelling Catheter Indwelling Catheter - Labs CBC & Chem 7: 02/12/22 06:18 02/12/22 06:18 Labs: Abnormal Lab Results - Last 24 Hours (Table) 02/11/22 02/11/22 02/12/22 Range/Units 18:48 23:34 05:48 Hgb (11.4-16.0) gm/dL Hct (34.0-46.0) % MCV (80.0-100.0) fL MCH (25.0-35.0) pg RDW (11.5-15.5) % Plt Count (150-450) k/uL Lymphocytes # (1.0-4.8) k/uL Chloride (98-107) mmol/L BUN (7-17) mg/dL Glucose (74-99) mg/dL POC Glucose (mg/dL) 126 H 164 H 119 H (70-110) mg/dL Calcium (8.4-10.2) mg/dL Alkaline Phosphatase (38-126) U/L Total Protein (6.3-8.2) g/dL Albumin (3.5-5.0) g/dL 02/12/22 02/12/22 Range/Units 06:18 06:18 Hgb 9.2 L (11.4-16.0) gm/dL Hct 29.4 L (34.0-46.0) % MCV 74.7 L (80.0-100.0) fL MCH 23.4 L (25.0-35.0) pg RDW 20.9 H (11.5-15.5) % Plt Count 93 L (150-450) k/uL Lymphocytes # 0.4 L (1.0-4.8) k/uL Chloride 112 H (98-107) mmol/L BUN 27 H (7-17) mg/dL Glucose 118 H (74-99) mg/dL POC Glucose (mg/dL) (70-110) mg/dL Calcium 7.4 L (8.4-10.2) mg/dL Alkaline Phosphatase 30 L (38-126) U/L Total Protein 5.4 L (6.3-8.2) g/dL Albumin 2.2 L (3.5-5.0) g/dL Microbiology - Last 24 Hours (Table) 02/09/22 10:13 Blood Culture - Preliminary Blood No Growth after 72 hours 02/09/22 00:13 Blood Culture Gram Stain - Final Blood Blood Culture - Final Serratia marcescens 02/09/22 00:03 Blood Culture Gram Stain - Final Blood Blood Culture - Final Serratia marcescens
[2022-02-13] MEDS: CEFEPIME 2 GM in SODIUM CHLORIDE 0.9% 100 ML IVPB SCH ×3 (00:06→16:41)
[2022-02-13] MEDS: SODIUM CHLORIDE 0.9% 1,000 ML IV SCH (05:25)
[2022-02-13 06:43] LABS: Anisocytosis Moderate; Basophils % (A) 0 %; Eosinophils % (A) 1 %; HCT 30.9 % (34.0-46.0); HGB 9.4 gm/dL (11.4-16.0); Hypochromasia Marked; Lymphocytes # (A) 0.3 k/uL (1.0-4.8); Lymphocytes % (A) 6 %; MCH 23.3 pg (25.0-35.0); MCHC 30.3 g/dL (31.0-37.0); MCV 76.7 fL (80.0-100.0); Mean Platelet Volume 7.3; Microcytosis Moderate; Monocytes # (A) 0.3 k/uL (0-1.0); Monocytes % (A) 5 %; Neutrophils # (A) 4.2 k/uL (1.3-7.7); Neutrophils % (A) 86 %; Platelet Count 89 k/uL (150-450); Poikilocytosis Slight; RBC 4.03 m/uL (3.80-5.40); RDW 20.7 % (11.5-15.5); WBC 4.8 k/uL (3.8-10.6)
[2022-02-13 06:50] LABS: African American GFR (CKD) >90 (>60 ml/min/1.73 sqM); Anion Gap 9 mmol/L; Blood Urea Nitrogen 22 mg/dL (7-17); Calcium 7.3 mg/dL (8.4-10.2); Carbon Dioxide 21 mmol/L (22-30); Chloride 109 mmol/L (98-107); Glucose 140 mg/dL (74-99); Non-African American GFR(CKD) 86 (>60 ml/min/1.73 sqM); Potassium 3.1 mmol/L (3.5-5.1); Sodium 139 mmol/L (137-145)
[2022-02-13] MEDS: POTASSIUM CHLORIDE ER 20 MEQ TAB.ER PO SCH ×2 (06:59→07:58)
--- NOTE | 2022-02-13 07:49 | P.PN ---
Subjective Progress Note Date: 02/12/22 Principal diagnosis: Gram-negative bacteremia and aortic valve endocarditis Patient is a 36 year female presenting to the hospital with acute respiratory failure in this patient to have evidence of gram-negative bacteremia and there was concern for vegetation on the aortic valve on today's evaluation that is 02/12/2022, the patient denies fever or chills, the patient is breathing comfortably on room air, the patient is hemodynamically stable not requiring any pressor support, the patient denies any chest pain or shortness of breath , the patient did have occasional cough no abdominal pain no diarrhea is reported Objective - Vital Signs Vital signs: Vital Signs Temp 99.1 F 02/12/22 08:00 Pulse 82 02/12/22 09:00 Resp 19 02/12/22 09:00 BP 126/57 02/12/22 09:00 Pulse Ox 96 02/12/22 09:00 FiO2 40 02/11/22 10:45 Intake & Output 02/11/22 02/12/22 02/12/22 18:59 06:59 18:59 Intake Total 459.979 980 Output Total 2420 645 Balance -1960.021 335 Weight 75.3 kg Intake: IV 300 260 Cefepime 2 gm In Sodium 200 100 Chloride 0.9% 100 ml @ 25 mls/hr IVPB Q8HR [facility] Rx# :[id number] Sodium Chloride 0.9% 1, 100 160 000 ml @ 20 mls/hr IV . Q24H [facility] Rx#:[id number] Intake, IV Titration 109.979 Amount propofoL 1,000 mg In 109.979 Empty Bag 1 bag @ 10 MCG/ KG/MIN 4.355 mls/hr IV . [id number] [facility] Rx#:[id number] Oral 720 Tube Feeding 20 Other 30 Output: Urine 2420 645 Other: Voiding Method Indwelling Catheter Indwelling Catheter - Exam GENERAL DESCRIPTION: Middle-aged female lying in bed in no distress RESPIRATORY SYSTEM: Unlabored breathing , decreased breath sounds at bases HEART: S1 S2 regular rate and rhythm , ABDOMEN: Soft , no tenderness EXTREMITIES: No edema feet - Labs CBC & Chem 7: 02/13/22 06:18 02/13/22 06:18 Labs: Abnormal Lab Results - Last 24 Hours (Table) 02/11/22 02/11/22 02/12/22 Range/Units 18:48 23:34 05:48 Hgb (11.4-16.0) gm/dL Hct (34.0-46.0) % MCV (80.0-100.0) fL MCH (25.0-35.0) pg RDW (11.5-15.5) % Plt Count (150-450) k/uL Lymphocytes # (1.0-4.8) k/uL Chloride (98-107) mmol/L BUN (7-17) mg/dL Glucose (74-99) mg/dL POC Glucose (mg/dL) 126 H 164 H 119 H (70-110) mg/dL Calcium (8.4-10.2) mg/dL Alkaline Phosphatase (38-126) U/L Total Protein (6.3-8.2) g/dL Albumin (3.5-5.0) g/dL 02/12/22 02/12/22 Range/Units 06:18 06:18 Hgb 9.2 L (11.4-16.0) gm/dL Hct 29.4 L (34.0-46.0) % MCV 74.7 L (80.0-100.0) fL MCH 23.4 L (25.0-35.0) pg RDW 20.9 H (11.5-15.5) % Plt Count 93 L (150-450) k/uL Lymphocytes # 0.4 L (1.0-4.8) k/uL Chloride 112 H (98-107) mmol/L BUN 27 H (7-17) mg/dL Glucose 118 H (74-99) mg/dL POC Glucose (mg/dL) (70-110) mg/dL Calcium 7.4 L (8.4-10.2) mg/dL Alkaline Phosphatase 30 L (38-126) U/L Total Protein 5.4 L (6.3-8.2) g/dL Albumin 2.2 L (3.5-5.0) g/dL Microbiology - Last 24 Hours (Table) 02/09/22 00:13 Blood Culture Gram Stain - Final Blood Blood Culture - Final Serratia marcescens 02/09/22 00:03 Blood Culture Gram Stain - Final Blood Blood Culture - Final Serratia marcescens 02/09/22 10:13 Blood Culture - Preliminary Blood No Growth after 48 hours Assessment and Plan (1) Sepsis Current Visit: Yes Status: Acute Code(s): A41.9 - SEPSIS, UNSPECIFIED ORGANISM SNOMED Code(s): 57993630 Plan: 1patient presented to hospital with sepsis in this patient did have a fever tachycardia tachypnea now with evidence of vegetation on aortic wall likely secondary to endocarditis, blood culture has been finalized and Serratia 2patient seemed to have shown clinical improvement and will continue with the cefepime, family at the bedside questions were answered Time with Patient: Less than 30
[2022-02-13] MEDS: PANTOPRAZOLE 40 MG/10 ML VIAL IVP SCH (07:58)
--- NOTE | 2022-02-13 08:07 | P.PN ---
Subjective PROGRESS NOTE The patient is a 36-year-old female who presented with progressive dyspnea, change in mental status requiring mechanical ventilation. She was febrile and had positive blood cultures. She was recently discharged from [facility] with diarrhea and positive blood cultures as well with change in mental status. Her echocardiogram performed yesterday showed possible aortic valve vegetations that was confirmed on the transesophageal echocardiogram with severe aortic regurgitation and a tricuspid aortic valve. She had moderate mitral regurgitation. Her echocardiogram at [facility] on January 25 showed a normal systolic function with trace aortic regurgitation and no mention of vegetations. She had at [facility] evidence of splenic infarct and colitis as well has severe anemia. She continues to be intubated, tachycardic at times. Her blood pressure is stable. The color of her urine is better. There is no evidence of malignant arrhythmia. She continues to be febrile. Her urinary output is good. Her blood cultures were positive for Serratia Marcescens which is the same bacteria noted at [facility]. She was seen by the cardiovascular team yesterday. Her computed tomography scan of the abdomen showed moderately severe hepatosplenomegaly was bilateral enlargement of the kidneys. She had cardiomegaly with pleural effusion and basilar pulmonary infiltrate atelectasis. No suggestion of colitis was noted. February 11: The patient remains intubated and sedated, in sinus mechanism, hemodynamically stable on no vasopressors. She has good urinary output. There is no evidence of malignant arrhythmia. Her blood pressure were positive for Serratia marcesce ns. She is afebrile. Her echocardiogram showed severe aortic regurgitation with evidence of vegetation on a tricuspid aortic valve and question of ulceration noted. Her systolic function was 50-55%. On the echocardiogram performed at [facility] recently there is no documentation of the vegetation and she had trace AI. The patient is being evaluated to be transferred to tertiary care hospital for further treatment. February 12: The patient is extubated, hemodynamically stable, denies any chest discomfort, dizziness or palpitations. She continues to be in sinus mechanism. She had no evidence of atrial arrhythmia. She cannot recall the episode prior to admission. She denies any knowledge of valvular problem in the past. She denies any history of IV drug abuse. She remains afebrile. Her urinary output has been stable. She received one dose of IV Lasix yesterday. Repeat blood culture from February 09 showed no growth after 48 hours. February 13: Patient seen and examined. Patient extubated yesterday and currently on nasal cannula. Having diarrhea. She admits she is lactose intolerant. Does not have much of an appetite. Hemodynamically stable. Cardiothoracic surgery deferring surgery until blood cultures if cleared. Blood cultures from 02/11 no growth to date. Vitals reviewed LUNGS: Clear to auscultation anteriorly HEART: Regular rate and rhythm, S1, S2. No S3. systolic ejection murmur with diastolic murmur at the base 08/07 ABDOMEN: Soft, positive bowel sounds, no organomegaly EXTREMETIES: No edema IMPRESSION: 1. 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 Colitis and spleen infarct by CAT scan at [facility] 3. Respiratory failure, resolved 4. Change in mental status prior to admission related to the sepsis 5. Anemia, most likely related to the infectious process, improved 6. Abnormal renal functions, resolved PLAN: 1. IV antibiotics per infectious disease 2. Splenic infarct is likely related to a septic emboli 3. Continue supportive care 4. It is very likely that the patient would require aortic valve surgery in view of the severe aortic regurgitation. Await for clearance of blood cultures. Objective - Vital Signs Vital signs: Vital Signs Temp 98.4 F 02/13/22 04:00 Pulse 90 02/13/22 07:00 Resp 34 H 02/13/22 07:00 BP 136/66 02/13/22 07:00 Pulse Ox 100 02/13/22 07:00 FiO2 40 02/11/22 10:45 Intake & Output 02/12/22 02/13/22 02/13/22 18:59 06:59 18:59 Intake Total 1080 480 20 Output Total 385 535 35 Balance 695 -55 -15 Weight 74.1 kg Intake: IV 280 240 20 Cefepime 2 gm In Sodium 200 100 Chloride 0.9% 100 ml @ 25 mls/hr IVPB Q8HR [facility] Rx# :[id number] Sodium Chloride 0.9% 1, 80 140 20 000 ml @ 20 mls/hr IV . Q24H [facility] Rx#:[id number] Oral 240 Tube Feeding 800 Output: Urine 385 535 35 Other: Voiding Method Indwelling Catheter Indwelling Catheter # Voids 1 - Labs CBC & Chem 7: 02/13/22 06:18 02/13/22 06:18 Labs: Abnormal Lab Results - Last 24 Hours (Table) 02/13/22 02/13/22 Range/Units 06:18 06:18 Hgb 9.4 L (11.4-16.0) gm/dL Hct 30.9 L (34.0-46.0) % MCV 76.7 L (80.0-100.0) fL MCH 23.3 L (25.0-35.0) pg MCHC 30.3 L (31.0-37.0) g/dL RDW 20.7 H (11.5-15.5) % Plt Count 89 L (150-450) k/uL Lymphocytes # 0.3 L (1.0-4.8) k/uL Potassium 3.1 L (3.5-5.1) mmol/L Chloride 109 H (98-107) mmol/L Carbon Dioxide 21 L (22-30) mmol/L BUN 22 H (7-17) mg/dL Glucose 140 H (74-99) mg/dL Calcium 7.3 L (8.4-10.2) mg/dL Microbiology - Last 24 Hours (Table) 02/11/22 12:23 Blood Culture - Preliminary Blood No Growth after 24 hours 02/11/22 12:12 Blood Culture - Preliminary Blood No Growth after 24 hours 02/09/22 10:13 Blood Culture - Preliminary Blood No Growth after 72 hours
--- NOTE | 2022-02-13 11:40 | P.PN ---
Subjective Progress Note Date: 02/13/22 CHIEF COMPLAINT: Colitis HISTORY OF PRESENT ILLNESS: The patient is a 36-year-old female with complicated history of colitis including valvular vegetation who was about to be transferred to outside facility for further management. Transfer has been canceled. Patient remains in the ICU. She reports that she started having diarrhea last night. She had about 5 episodes the night and then 3 episodes this morning. Denies any blood in her stools. Denies abdominal pain. She reports nausea no vomiting. Repeat blood cultures are negative. She's afebrile. WBC is 4.8. Potassium 3.1 creatinine 0.87 she is tolerating regular diet. Patient does report history of C. diff colitis PHYSICAL EXAM: VITAL SIGNS: Reviewed GENERAL: Well-developed in no acute distress. HEENT: No sclera icterus. Extraocular movements grossly intact. Moist buccal mucosa. Head is atraumatic, normocephalic. Hears conversational speech. No nasal drainage. NECK: Supple without lymphadenopathy. CHEST: Non-labored respirations and equal bilateral excursions. CARDIOVASCULAR: Palpable 2+ radial pulses. ABDOMEN: Soft. Nondistended. Nontender. MUSCULOSKELETAL: No clubbing or cyanosis. NEUROLOGIC: No focal or lateralizing signs. Cranial nerves II through XII grossly intact. PSYCH: Appropriate affect. Alert and oriented to person, place and time. SKIN: Well perfused. Good skin turgor. ASSESSMENT: 1. Aortic valve endocarditis with bacteremia 2. Sepsis due to valvular vegetation 3. Colitis PLAN: -Continue antibiotics per ID -Continue regular diet -Agree with checking stool for C. diff Physician District Manager note has been reviewed by physician. Signing provider agrees with the documented findings, assessment, and plan of care. Objective - Vital Signs Vital signs: Vital Signs Temp 98.9 F 02/13/22 08:00 Pulse 87 02/13/22 09:00 Resp 33 H 02/13/22 09:00 BP 138/57 02/13/22 09:00 Pulse Ox 70 L 02/13/22 09:00 FiO2 40 02/11/22 10:45 Intake & Output 02/12/22 02/13/22 02/13/22 18:59 06:59 18:59 Intake Total 1080 480 160 Output Total 385 535 95 Balance 695 -55 65 Weight 74.1 kg Intake: IV 280 240 160 Cefepime 2 gm In Sodium 200 100 100 Chloride 0.9% 100 ml @ 25 mls/hr IVPB Q8HR [facility] Rx# :[id number] Sodium Chloride 0.9% 1, 80 140 60 000 ml @ 20 mls/hr IV . Q24H [facility] Rx#:[id number] Oral 240 Tube Feeding 800 Output: Urine 385 535 95 Other: Voiding Method Indwelling Catheter Indwelling Catheter Indwelling Catheter # Voids 1 - Labs CBC & Chem 7: 02/13/22 06:18 02/13/22 06:18 Labs: Abnormal Lab Results - Last 24 Hours (Table) 02/13/22 02/13/22 Range/Units 06:18 06:18 Hgb 9.4 L (11.4-16.0) gm/dL Hct 30.9 L (34.0-46.0) % MCV 76.7 L (80.0-100.0) fL MCH 23.3 L (25.0-35.0) pg MCHC 30.3 L (31.0-37.0) g/dL RDW 20.7 H (11.5-15.5) % Plt Count 89 L (150-450) k/uL Lymphocytes # 0.3 L (1.0-4.8) k/uL Potassium 3.1 L (3.5-5.1) mmol/L Chloride 109 H (98-107) mmol/L Carbon Dioxide 21 L (22-30) mmol/L BUN 22 H (7-17) mg/dL Glucose 140 H (74-99) mg/dL Calcium 7.3 L (8.4-10.2) mg/dL Microbiology - Last 24 Hours (Table) 02/11/22 12:23 Blood Culture - Preliminary Blood No Growth after 24 hours 02/11/22 12:12 Blood Culture - Preliminary Blood No Growth after 24 hours 02/09/22 10:13 Blood Culture - Preliminary Blood No Growth after 72 hours
--- NOTE | 2022-02-13 12:49 | P.PN ---
Subjective Progress Note Date: 02/13/22 Principal diagnosis: Acute bacterial infective endocarditis of the aortic valve, secondary to Serratia marcescens 02/11/2022, the patient remains on a mechanical ventilator. Attempts were made to transfer this patient to [facility]. Unfortunately, due to bad situations, patient was unable to transfer. As such, the patient stayed with us. She was accepted to go to transfer to [facility] and this did not happen. Meanwhile, the patient remains hemodynamically stable. This morning to the performed today to 55 mcg/kg per minute. She is on assist control mode at the rate of 16 with a tidal volume of 450 and FiO2 of 40% with a PEEP of 5. She is hemodynamically stable and she has not required any pressors. She without enteral feeding for nutritional support and she is currently on vital AF this is an hour. The patient has no fever. White cell count is at 3 with a hemoglobin of 9.1. The blood gases from today shows a pH of 7.47 with a pCO2 of 34 and pO2 of 162. Recent electrolytes are stable and the renal function is also stable with a creatinine of 0.9 and a BUN of 24 and a sodium level of 144. She is on IV cefepime regarding Serratia endocarditis and sepsis. Overall fluid balance is -1.2 L in the chest x-ray still showing interstitial edema ET tube is in a good location. Note that hemoglobin also dropped down to 6.5. The patient r eceived a total of 2 units of packed RBC in the morning hemoglobin is up in 1 is currently stable. No signs of any bleeding. No fever. No chills. No hemoptysis. 02/12/2022, the patient is extubated. The patient is currently on room air oxygen. Chest x-ray shows some increased interstitial markings and some right perihilar fullness, likely vascular in nature. The patient remains on IV cefe pime. Awaiting follow-up cultures. Hemodynamically stable. The patient is afebrile. No confusion. Altered mentation. Upon further questioning, the patient denies using IV drugs. The patient's white cell count is at 4.3 with a hemoglobin 9.2. BUN is at 27 with a creatinine of 0.9 and sodium level is 144. No other complaints otherwise. Neurologically intact. Reevaluated today on 02/13/22, patient was initially intubated on 8/11, extubated on 02/11, patient presented with acute pulmonary edema, she has severe aortic insufficiency and aortic endocarditis secondary to Serratia. Treated with cefepime. Today the patient is complaining of diarrhea, patient is being screened for possible C. difficile colitis. Otherwise the patient is doing great, she is on room air, she is not in any distress, and C. diff screening is pending. WBC count is 4.8 hemoglobin is 9.4. Electrolytes are normal except for low potassium of 3.1, being corrected as per protocol. Objective - Vital Signs Vital signs: Vital Signs Temp 98.9 F 02/13/22 08:00 Pulse 87 02/13/22 09:00 Resp 33 H 02/13/22 09:00 BP 138/57 02/13/22 09:00 Pulse Ox 70 L 02/13/22 09:00 FiO2 40 02/11/22 10:45 Intake & Output 02/12/22 02/13/22 02/13/22 18:59 06:59 18:59 Intake Total 1080 480 160 Output Total 385 535 95 Balance 695 -55 65 Weight 74.1 kg 74.1 kg Intake: IV 280 240 160 Cefepime 2 gm In Sodium 200 100 100 Chloride 0.9% 100 ml @ 25 mls/hr IVPB Q8HR [facility] Rx# :[id number] Sodium Chloride 0.9% 1, 80 140 60 000 ml @ 20 mls/hr IV . Q24H [facility] Rx#:[id number] Oral 240 Tube Feeding 800 Output: Urine 385 535 95 Other: Voiding Method Indwelling Catheter Indwelling Catheter Indwelling Catheter # Voids 1 - Exam Physical Exam: Revealed a 36-year-old female in no distress on room air. Head: Atraumatic, normocephalic. HEENT:[Neck is supple.] [No neck masses.] [No thyromegaly.] [No JVD.] Chest: [Clear throughout, no crackles, no rhonchi, no wheezes.] Cardiac Exam: [Normal S1 and S2, no S3 gallop, 2/6 systolic murmur thought the precordium. Abdomen: [Soft, nontender, no megaly, no rebound, no guarding, normal bowel sounds.] Extremities: [No clubbing, no edema, no cyanosis.] Neurological Exam: [No focal neurologic deficit.] Psychiatric: Normal mood affect and normal mental status examination. Skin: No rashes. Musculoskeletal: No deformities and no limitation in range of motion. - Labs CBC & Chem 7: 02/13/22 06:18 02/13/22 06:18 Labs: Abnormal Lab Results - Last 24 Hours (Table) 02/13/22 02/13/22 Range/Units 06:18 06:18 Hgb 9.4 L (11.4-16.0) gm/dL Hct 30.9 L (34.0-46.0) % MCV 76.7 L (80.0-100.0) fL MCH 23.3 L (25.0-35.0) pg MCHC 30.3 L (31.0-37.0) g/dL RDW 20.7 H (11.5-15.5) % Plt Count 89 L (150-450) k/uL Lymphocytes # 0.3 L (1.0-4.8) k/uL Potassium 3.1 L (3.5-5.1) mmol/L Chloride 109 H (98-107) mmol/L Carbon Dioxide 21 L (22-30) mmol/L BUN 22 H (7-17) mg/dL Glucose 140 H (74-99) mg/dL Calcium 7.3 L (8.4-10.2) mg/dL Microbiology - Last 24 Hours (Table) 02/09/22 10:13 Blood Culture - Preliminary Blood No Growth after 96 hours 02/11/22 12:23 Blood Culture - Preliminary Blood No Growth after 24 hours 02/11/22 12:12 Blood Culture - Preliminary Blood No Growth after 24 hours Assessment and Plan Assessment: Impression: Acute aortic valve endocarditis secondary to Serratia marcescens Severe aortic regurgitation Acute pulmonary edema secondary to severe aortic insufficiency History of recent colitis and splenic infarct Possible recurrent colitis/rule out C. difficile colitis Questionable IV drug use. Acute kidney injury possibly secondary to sepsis/infective endocarditis Acute on chronic anemia Acute hypoxic respiratory failure secondary to pulmonary edema, secondary to severe aortic insufficiency and aortic endocarditis. Recommendation: Continue present supportive care measures Continue antibiotics/cefepime Continue to monitor blood cultures Cardiothoracic to reevaluate again regarding her aortic valve. [facility] is presently on hold. Transfer patient to a monitor bed on selective Continue GI and DVT prophylaxis. We will continue to follow. Check for possible C. difficile colitis. Time with Patient: Less than 30
[2022-02-13] MEDS: CHOLESTYRAMINE (WITH SUGAR) 4 GM PACKET PO SCH ×2 (12:50→16:42)
--- NOTE | 2022-02-13 14:05 | P.PN ---
Progress Note - Text Progress Note Date: 02/13/22 Gastroenterology was asked to see patient regarding proceeding with a colonoscopy for recent colitis at another facility, and diarrhea for the last 1- 2 days duration.. Cardiothoracic surgeon is requesting colonoscopy prior to cardiac valve replacement. I went in to speak with the patient and she and her family have decided that they would like to transfer to another facility prior to any procedures. No formal consult completed. This was discussed with Jv Villegas and Tierney Rodrigues cardiothoracic nurse practitioners. This was also discussed with general surgery physician [employer] assistant principal. Gen. surgery will remain on the patient's case. Dr. Bessie Phipps I agree with the dictator's note, documented as a scribe by Ruth Locke.
--- NOTE | 2022-02-13 14:51 | P.PN ---
Subjective Progress Note Date: 02/13/22 Principal diagnosis: Aortic valve endocarditis with severe aortic valve regurgitation, Serratia bacteremia, sepsis, acute hypoxic respiratory failure requiring mechanical ventilation, altered mental status, acute anemia, acute kidney injury. Previous history of bacteremia with blood cultures from [facility] positive for Serratia marcescens, recent history of colitis and splenomegaly likely splenic infarct, anxiety, PTSD with history of self mutilation The patient was seen and examined this morning sitting up in bed in the intensive care unit with Dr. Camacho. She has been extubated and is maintaining oxygen saturation in the high 90s on room air. Remains in sinus rhythm, hemodynamically stable on no inotropes or pressors. Blood cultures from February 11 continue to show no growths, white blood cell count normal at 4.8, remains afebrile. Currently on cefepime per infectious disease. Dr. Camacho did have a long discussion with the patient regarding the need for aortic valve replacement and recommends during this admission. Prior to valve replacement patient would need dental clearance as well as lower GI scope to rule out any acute issues especially given her bacteremia is from gram-negative Serratia as well as patient being admitted with anemia requiring blood transfusion. Urgency for surgical aortic valve replacement somewhat reduce due to ability to be extubated and hemodynamic stability, still we would recommend surgery this admission. This was discussed at length with the patient this morning by Dr. Camacho. Objective - Vital Signs Vital signs: Vital Signs Temp 98.9 F 02/13/22 08:00 Pulse 87 02/13/22 09:00 Resp 33 H 02/13/22 09:00 BP 138/57 02/13/22 09:00 Pulse Ox 70 L 02/13/22 09:00 FiO2 40 02/11/22 10:45 Intake & Output 02/12/22 02/13/22 02/13/22 18:59 06:59 18:59 Intake Total 1080 480 160 Output Total 385 535 95 Balance 695 -55 65 Weight 74.1 kg 74.1 kg Intake: IV 280 240 160 Cefepime 2 gm In Sodium 200 100 100 Chloride 0.9% 100 ml @ 25 mls/hr IVPB Q8HR [facility] Rx# :[id number] Sodium Chloride 0.9% 1, 80 140 60 000 ml @ 20 mls/hr IV . Q24H [facility] Rx#:[id number] Oral 240 Tube Feeding 800 Output: Urine 385 535 95 Other: Voiding Method Indwelling Catheter Indwelling Catheter Indwelling Catheter # Voids 1 - Exam CONSTITUTIONAL: Appears comfortable, cooperative, no acute distress RESPIRATORY: Lungs sounds diminished bilaterally. Respirations even, nonlabored. Currently on room air with oxygen saturation 97%. Strong cough. CARDIOVASCULAR: S1, S2 present, systolic murmur present. Regular rate and rhythm, sinus rhythm on telemetry. Palpable peripheral pulses bilaterally. No edema present. No calf pain or tenderness noted. GASTROINTESTINAL: Abdomen soft, nontender, nondistended. Active bowel sounds present 4 quadrants. Tolerating diet. Positive bowel movement. GENITOURINARY: Jefferson present draining clear, yellow urine. Output 30-60 mL per hour INTEGUMENTARY: Skin is warm and dry with evidence of good perfusion. NEUROLOGIC: Cranial nerves II through XII intact MUSKULOSKELETAL: Able to move all extremities, strength equal bilaterally, gait normal PSYCHIATRIC: Alert and oriented to person place and time, appropriate affect, intact judgment and insight - Allied health notes Allied health notes reviewed: nursing - Labs CBC & Chem 7: 02/13/22 06:18 02/13/22 06:18 Labs: Abnormal Lab Results - Last 24 Hours (Table) 02/13/22 02/13/22 Range/Units 06:18 06:18 Hgb 9.4 L (11.4-16.0) gm/dL Hct 30.9 L (34.0-46.0) % MCV 76.7 L (80.0-100.0) fL MCH 23.3 L (25.0-35.0) pg MCHC 30.3 L (31.0-37.0) g/dL RDW 20.7 H (11.5-15.5) % Plt Count 89 L (150-450) k/uL Lymphocytes # 0.3 L (1.0-4.8) k/uL Potassium 3.1 L (3.5-5.1) mmol/L Chloride 109 H (98-107) mmol/L Carbon Dioxide 21 L (22-30) mmol/L BUN 22 H (7-17) mg/dL Glucose 140 H (74-99) mg/dL Calcium 7.3 L (8.4-10.2) mg/dL Microbiology - Last 24 Hours (Table) 02/09/22 10:13 Blood Culture - Preliminary Blood No Growth after 96 hours 02/11/22 12:23 Blood Culture - Preliminary Blood No Growth after 24 hours 02/11/22 12:12 Blood Culture - Preliminary Blood No Growth after 24 hours - Imaging and Cardiology Echocardiogram films reviewed with Dr. Camacho Assessment and Plan Assessment: 1. Aortic valve endocarditis with severe aortic valve regurgitation 2. Serratia bacteremia, sepsis 3. Acute hypoxic respiratory failure requiring mechanical ventilation 4. Altered mental status this admission 5. Acute on chronic anemia, status post blood transfusion 6. Acute kidney injury 7. Recent history of colitis and splenomegaly likely splenic infarct 8. History of anxiety 9. PTSD with history of self mutilation Plan: 1. Recommend surgical aortic valve replacement this admission. Patient needs endoscopy first due to previous history of colitis on computed tomography scan as well as Serratia bacteremia. Currently patient is refusing endoscopy 2. Continue antibiotics as directed by infectious disease, monitor blood cultures, blood cultures drawn 02/11/2022 remain negative 3. Patient will need dental clearance. Panorex ordered, dental consult ordered 4. Continue to follow chest x-ray, labs 5. Continue supportive care 6. Parents requested meeting with surgeon, teaching done regarding patient's current status, need for surgery, need for preoperative workup, all of their many questions were answered. They are not willing to consent to endoscopy at this time although they will allow Panorex and visit by dentist. They are still requesting second opinion elsewhere and do not want to consent to surgery at [facility] at this time 7. Management of other comorbidities per internal medicine, cardiology, Gen. surgery
[2022-02-13] MEDS: LOPERAMIDE 2 MG CAP PO PRN (16:41)
--- NOTE | 2022-02-13 16:47 | CT ---
EXAMINATION TYPE: CT facial bones wo con CT DLP: 428.1 mGycm, Automated exposure control for dose reduction was used. DATE OF EXAM: 02/13/2022 4:30 PM COMPARISON: CT brain C-spine 02/08/2022. CLINICAL INDICATION:Female, 36 years old with history of pre valve surgery; [facility], Pre valve surgery. P anorex requested TECHNIQUE: Multiple unenhanced axial CT images were obtained of the facial bones soft tissue and bone windows. Coronal and axial reformatted images were also provided in soft tissue and bone windows an d submitted for interpretation. Panorex was performed. FINDINGS: There is no evidence of fracture, subluxation, dislocation, or significant soft tissue swelling. The orbital contents are unremarkable. The temporal-mandibular joints appear symmetric. The visualized po rtion of the paranasal sinuses appear clear. Periapical lucency cortical irregularity involving the 1 5th/left upper second molar. IMPRESSION: * No acute facial bone fracture. 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
--- NOTE | 2022-02-13 17:55 | P.PN ---
Subjective This is a pleasant 56 years old female with past medical history of anxiety, PTSD, presents with altered mental status. She is a patient of Dr. Vizcarra. Patient was admitted in the ICU from the emergency room, patient could not provide information which were obtained from medical records and staff. per ems pt was recently at [facility] for a blood infection. pt's last known well was last night at 10:30pm. pt found by family this evening altered. Patient was intubated in the emergency room Patient had a fever of 103 on admission, she is tachypneic 29-31, blood pressure 107/53 Labs reviewed on admission, WBC 8.7, low hemoglobin 6.9, low platelet 120, with thrombocytopenia which is mild ESR is elevated at 90, CRP elevated 8.9 PH normal 7.4, pCO2 normal at 37 INR 1.2 Sodium 132, potassium 3.2, creatinine 1.0. Liver enzymes are normal as well as bilirubin. Troponin is elevated at 0.37. ProBNP is elevated to 38,000 Urinalysis showing 3+ protein, large blood, RBC 127, WBC 27. Urine test is negative. Urine drug screen is positive for opioids EKG showing sinus tachycardia at [address]-T changes Chest x-ray: Acute pulmonary edema Computed tomography scan of the head and neck: Normal cervical spine with no fracture and normal CT of the brain by radiologist In the emergency room she received IV fluids with normal saline, vancomycin and ceftriaxone and ibuprofen and IV Tylenol, Dilaudid and lorazepam and succi nylcholine 02/10/2022 Patient is a pleasant 36 years old female was admitted with AMS and acute pul monary edema, she got intubated on admission and entered closely in the ICU with pulmonary/critical care team. Echocardiogram showed evidence of regurgitation on the aortic valve, which is confirmatory with WADE showed severe aortic regurgitation. Patient's risk factors with subacute bacterial endocarditis with sepsis secondary with Serratia marcescens and blood culture, a patient currently kept o n antibiotics with cefepime. IV vancomycin discontinued. She is also gentle hydration Today several consultants were on the case including pulmonary, cardiology, cardiothoracic surgery infectious disease with recommendation to transfer patient to tertiary care center I discussed the case with MICU fellow at [facility] in [place] Dr. Valladares and I discussed the case with her and she currently accepted the patient depending bed availability. 02/11/2022 Patient remains critically ill in the intensive care unit, she still intubated and on mechanical ventilation. Pulmonary/critical care to follow closely and help with vent management. She remains on broad-spectrum antibiotics of cefepime for positive blood culture with Serratia for her endocarditis I discussed the case with her report MICU team yesterday and they Accepted the patient, pending bed availability. Patient is followed closely by several consultants including cardiology, cardiothoracic and surgery teams as well as infectious disease. And WADE are noted. 02/12/2022 Patient got extubated and currently her respiratory status is stable and at baseline or close to baseline she is not tachypneic or hypoxic. This morning she was still tired and very sleepy and she could not provide information however she started waking up throughout the day and she is alert awake and oriented. Repeat chest x-ray showing clearance of pulmonary edema but there is development of right lower lobe infiltrate. Rest of vitals and labs are stable. She has low-grade temperature of 99.8 today. She is currently on cefepime. I discussed the case again with [facility] at her report, they informed me her transfer was canceled because [facility] has reached its full capacity. On reviewing this with the staff patient may not needed to be transferred and her aortic valve regurgitation be managed in this facility. However we will follow up with pulmonary/critical care team and surgery teams. 02/13/2022 Patient today is fully awake and oriented, she looks a pleasant and calm, she denies any specific symptoms to me. She looks mildly tired and lethargic. However her mentation is normal. She denies chest pain or dyspnea. No abdominal pain or vomiting or diarrhea. No urinary complaints. No headache or weakness or numbness. No dizziness. She is hemodynamically stable. Labs look stable. She's continued on IV cefepime. Repeat blood culture is negative. Cardiothoracic surgery team recommended aortic valve repair during this admission and colonoscopy to be done prior to the procedure however a decline in the procedure We will follow up with the consult recommendation Objective - Vital Signs Vital signs: Vital Signs Temp 98.9 F 02/13/22 08:00 Pulse 92 02/13/22 08:00 Resp 33 H 02/13/22 08:00 BP 139/66 02/13/22 08:00 Pulse Ox 97 02/13/22 08:00 FiO2 40 02/11/22 10:45 Intake & Output 02/12/22 02/13/22 02/13/22 18:59 06:59 18:59 Intake Total 1080 480 20 Output Total 385 535 35 Balance 695 -55 -15 Weight 74.1 kg Intake: IV 280 240 20 Cefepime 2 gm In Sodium 200 100 Chloride 0.9% 100 ml @ 25 mls/hr IVPB Q8HR [facility] Rx# :[id number] Sodium Chloride 0.9% 1, 80 140 20 000 ml @ 20 mls/hr IV . Q24H [facility] Rx#:[id number] Oral 240 Tube Feeding 800 Output: Urine 385 535 35 Other: Voiding Method Indwelling Catheter Indwelling Catheter Indwelling Catheter # Voids 1 - Exam -GENERAL: The patient is awake and alert but tired HEENT: Pupils are round and equally reacting to light. EOMI. No scleral icterus. No conjunctival pallor. Normocephalic, atraumatic. No pharyngeal erythema. No thyromegaly. -CARDIOVASCULAR: S1 and S2 present. Systolic murmurs, rubs, or gallops. PULMONARY: Chest is clear to auscultation, no wheezing or crackles. ABDOMEN: Soft, nontender, nondistended, normoactive bowel sounds. No palpable organomegaly. MUSCULOSKELETAL: No joint swelling or deformity. EXTREMITIES: No cyanosis, clubbing, or pedal edema. NEUROLOGICAL: Gross neurological examination did not reveal any focal deficits. SKIN: No rashes. no petechiae. - Labs CBC & Chem 7: 02/13/22 06:18 02/13/22 06:18 Labs: Abnormal Lab Results - Last 24 Hours (Table) 02/13/22 02/13/22 Range/Units 06:18 06:18 Hgb 9.4 L (11.4-16.0) gm/dL Hct 30.9 L (34.0-46.0) % MCV 76.7 L (80.0-100.0) fL MCH 23.3 L (25.0-35.0) pg MCHC 30.3 L (31.0-37.0) g/dL RDW 20.7 H (11.5-15.5) % Plt Count 89 L (150-450) k/uL Lymphocytes # 0.3 L (1.0-4.8) k/uL Potassium 3.1 L (3.5-5.1) mmol/L Chloride 109 H (98-107) mmol/L Carbon Dioxide 21 L (22-30) mmol/L BUN 22 H (7-17) mg/dL Glucose 140 H (74-99) mg/dL Calcium 7.3 L (8.4-10.2) mg/dL Microbiology - Last 24 Hours (Table) 02/11/22 12:23 Blood Culture - Preliminary Blood No Growth after 24 hours 02/11/22 12:12 Blood Culture - Preliminary Blood No Growth after 24 hours 02/09/22 10:13 Blood Culture - Preliminary Blood No Growth after 72 hours Assessment and Plan Assessment: Subacute bacterial endocarditis Severe aortic regurgitation secondary to above Sepsis with fever and tachypnea Acute hypoxic respiratory failure requiring intubation and mechanical ventilation, she got extubated on 02/28 Metabolic encephalopathy Acute pulmonary edema, could be acute CHF versus RDS Severe anemia, microcytic hyperchromic requiring blood transfusion 4 Elevated troponin Plan: This is a pleasant 56 years old female who presents with AMS, on mechanical ventilation, anemia Respiratory status is a stable Monitor hemoglobin, and transfuse as needed Discussed the case with [facility], patient is for was canceled and the patient sitting in this facility Continue with cefepime Several consultants on the case including infectious disease, pulmonary/critical care, cardiology, cardiothoracic surgery IV fluids were stopped Labs and medication were reviewed.. Continue same treatment. Continue with symptomatic treatment. Resume home medication. Monitor lytes and vitals. DVT and GI prophylaxis. Further recommendations as per clinical course of the patient DVT prophylaxis: no Subcutaneous heparin in view of severe anemia GI Prophylaxis: Ppi Prognosis is guarded
[2022-02-14] MEDS: CEFEPIME 2 GM in SODIUM CHLORIDE 0.9% 100 ML IVPB SCH ×3 (01:07→15:39)
[2022-02-14] MEDS: SODIUM CHLORIDE 0.9% 1,000 ML IV SCH (07:00)
--- NOTE | 2022-02-14 07:44 | P.PN ---
Subjective Progress Note Date: 02/13/22 Principal diagnosis: Gram-negative bacteremia and aortic valve endocarditis Patient is a 36 year female presenting to the hospital with acute respiratory failure in this patient to have evidence of gram-negative bacteremia and there was concern for vegetation on the aortic valve on today's evaluation that is 02/13/2022, the patient remains to be afebrile, the patient is breathing comfortably on room air, the patient denies any chest pain or shortness of breath , the patient did have occasional cough , the patient denies abdominal pain however has developed significant diarrhea Objective - Vital Signs Vital signs: Vital Signs Temp 98.9 F 02/13/22 08:00 Pulse 87 02/13/22 09:00 Resp 33 H 02/13/22 09:00 BP 138/57 02/13/22 09:00 Pulse Ox 70 L 02/13/22 09:00 FiO2 40 02/11/22 10:45 Intake & Output 02/12/22 02/13/22 02/13/22 18:59 06:59 18:59 Intake Total 1080 480 160 Output Total 385 535 95 Balance 695 -55 65 Weight 74.1 kg 74.1 kg Intake: IV 280 240 160 Cefepime 2 gm In Sodium 200 100 100 Chloride 0.9% 100 ml @ 25 mls/hr IVPB Q8HR [facility] Rx# :[id number] Sodium Chloride 0.9% 1, 80 140 60 000 ml @ 20 mls/hr IV . Q24H [facility] Rx#:[id number] Oral 240 Tube Feeding 800 Output: Urine 385 535 95 Other: Voiding Method Indwelling Catheter Indwelling Catheter Indwelling Catheter # Voids 1 - Exam GENERAL DESCRIPTION: Middle-aged female lying in bed in no distress RESPIRATORY SYSTEM: Unlabored breathing , decreased breath sounds at bases HEART: S1 S2 regular rate and rhythm , ABDOMEN: Soft , no tenderness EXTREMITIES: No edema feet - Labs CBC & Chem 7: 02/13/22 06:18 02/13/22 06:18 Labs: Abnormal Lab Results - Last 24 Hours (Table) 02/13/22 02/13/22 Range/Units 06:18 06:18 Hgb 9.4 L (11.4-16.0) gm/dL Hct 30.9 L (34.0-46.0) % MCV 76.7 L (80.0-100.0) fL MCH 23.3 L (25.0-35.0) pg MCHC 30.3 L (31.0-37.0) g/dL RDW 20.7 H (11.5-15.5) % Plt Count 89 L (150-450) k/uL Lymphocytes # 0.3 L (1.0-4.8) k/uL Potassium 3.1 L (3.5-5.1) mmol/L Chloride 109 H (98-107) mmol/L Carbon Dioxide 21 L (22-30) mmol/L BUN 22 H (7-17) mg/dL Glucose 140 H (74-99) mg/dL Calcium 7.3 L (8.4-10.2) mg/dL Microbiology - Last 24 Hours (Table) 02/09/22 10:13 Blood Culture - Preliminary Blood No Growth after 96 hours 02/11/22 12:23 Blood Culture - Preliminary Blood No Growth after 24 hours 02/11/22 12:12 Blood Culture - Preliminary Blood No Growth after 24 hours Assessment and Plan (1) Sepsis Current Visit: Yes Status: Acute Code(s): A41.9 - SEPSIS, UNSPECIFIED ORGANISM SNOMED Code(s): 96033888 Plan: 1patient presented to hospital with sepsis in this patient did have a fever tachycardia tachypnea with evidence of vegetation on aortic wall likely secondary to endocarditis, blood culture has been finalized and Serratia from her repeat blood culture had been negative as 2patient seemed to have shown clinical improvement and will continue with the cefepime, 3-diarrhea we will check a stool for C. diff and add Questran for symptomatic relief Time with Patient: Less than 30
--- NOTE | 2022-02-14 08:28 | P.PN ---
Subjective PROGRESS NOTE The patient is a 36-year-old female who presented with progressive dyspnea, change in mental status requiring mechanical ventilation. She was febrile and had positive blood cultures. She was recently discharged from [facility] with diarrhea and positive blood cultures as well with change in mental status. Her echocardiogram performed yesterday showed possible aortic valve vegetations that was confirmed on the transesophageal echocardiogram with severe aortic regurgitation and a tricuspid aortic valve. She had moderate mitral regurgitation. Her echocardiogram at [facility] on January 25 showed a normal systolic function with trace aortic regurgitation and no mention of vegetations. She had at [facility] evidence of splenic infarct and colitis as well has severe anemia. She continues to be intubated, tachycardic at times. Her blood pressure is stable. The color of her urine is better. There is no evidence of malignant arrhythmia. She continues to be febrile. Her urinary output is good. Her blood cultures were positive for Serratia Marcescens which is the same bacteria noted at [facility]. She was seen by the cardiovascular team yesterday. Her computed tomography scan of the abdomen showed moderately severe hepatosplenomegaly was bilateral enlargement of the kidneys. She had cardiomegaly with pleural effusion and basilar pulmonary infiltrate atelectasis. No suggestion of colitis was noted. February 11: The patient remains intubated and sedated, in sinus mechanism, hemodynamically stable on no vasopressors. She has good urinary output. There is no evidence of malignant arrhythmia. Her blood pressure were positive for Serratia marcesce ns. She is afebrile. Her echocardiogram showed severe aortic regurgitation with evidence of vegetation on a tricuspid aortic valve and question of ulceration noted. Her systolic function was 50-55%. On the echocardiogram performed at [facility] recently there is no documentation of the vegetation and she had trace AI. The patient is being evaluated to be transferred to tertiary care hospital for further treatment. February 12: The patient is extubated, hemodynamically stable, denies any chest discomfort, dizziness or palpitations. She continues to be in sinus mechanism. She had no evidence of atrial arrhythmia. She cannot recall the episode prior to admission. She denies any knowledge of valvular problem in the past. She denies any history of IV drug abuse. She remains afebrile. Her urinary output has been stable. She received one dose of IV Lasix yesterday. Repeat blood culture from February 09 showed no growth after 48 hours. February 13: Patient seen and examined. Patient extubated yesterday and currently on nasal cannula. Having diarrhea. She admits she is lactose intolerant. Does not have much of an appetite. Hemodynamically stable. Cardiothoracic surgery deferring surgery until blood cultures if cleared. Blood cultures from 02/11 no growth to date. 02/14 Patient seen and examined. Patient concerned about undergoing colonoscopy and multiple questions yesterday. Today she feels she would likely prefer a mechanical valve and is more agreeable to colonoscopy. Discussed findings and recommendations. Patient denies any chest pain or pressure. Does have mild dyspnea with lying flat. Vitals reviewed LUNGS: Clear to auscultation anteriorly HEART: Regular rate and rhythm, S1, S2. No S3. systolic ejection murmur with diastolic murmur at the base 08/07 ABDOMEN: Soft, positive bowel sounds, no organomegaly EXTREMETIES: No edema IMPRESSION: 1. 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 Colitis and spleen infarct by CAT scan at [facility] 3. Respiratory failure, resolved 4. Change in mental status prior to admission related to the sepsis 5. Anemia, most likely related to the infectious process, improved 6. Abnormal renal functions, resolved PLAN: 1. IV antibiotics per infectious disease 2. Splenic infarct is likely related to a septic emboli 3. Patient more agreeable today to colonoscopy to evaluate possible source of bacteremia before any valve replacement. Patient also agreeable to likely mechanical aortic valve. Await dental clearance. Further recommendations to follow. Objective - Vital Signs Vital signs: Vital Signs Temp 98.0 F 02/14/22 08:00 Pulse 87 02/14/22 08:00 Resp 20 02/14/22 08:00 BP 145/59 02/14/22 08:00 Pulse Ox 97 02/14/22 08:00 FiO2 40 02/11/22 10:45 Intake & Output 02/13/22 02/14/22 02/14/22 18:59 06:59 18:59 Intake Total 260 240 Output Total 99 Balance 161 240 Weight 74.1 kg 74.3 kg Intake: IV 260 120 Cefepime 2 gm In Sodium 200 100 Chloride 0.9% 100 ml @ 25 mls/hr IVPB Q8HR [facility] Rx# :[id number] Sodium Chloride 0.9% 1, 60 20 000 ml @ 20 mls/hr IV . Q24H [facility] Rx#:[id number] Oral 120 Output: Urine 95 Stool 4 Other: Voiding Method Indwelling Catheter Indwelling Catheter Indwelling Catheter # Voids 4 3 - Labs CBC & Chem 7: 02/13/22 06:18 02/13/22 06:18 Labs: Microbiology - Last 24 Hours (Table) 02/11/22 12:12 Blood Culture - Preliminary Blood No Growth after 48 hours 02/11/22 12:23 Blood Culture - Preliminary Blood No Growth after 48 hours 02/09/22 10:13 Blood Culture - Preliminary Blood No Growth after 96 hours
[2022-02-14] MEDS: CHOLESTYRAMINE (WITH SUGAR) 4 GM PACKET PO SCH ×2 (09:36→17:27)
[2022-02-14] MEDS: PANTOPRAZOLE 40 MG/10 ML VIAL IVP SCH (09:36)
--- NOTE | 2022-02-14 10:58 | P.PN ---
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 Attempts were made to transfer this patient to [facility]. Unfortunately, due to bad situations, patient was unable to transfer. As such, the patient stayed with us. She was accepted to go to transfer to [facility] and this did not happen. Meanwhile, the patient remains hemodynamically stable. This morning to the performed today to 55 mcg/kg per minute. She is on assist control mode at the rate of 16 with a tidal volume of 450 and FiO2 of 40% with a PEEP of 5. She is hemodynamically stable and she has not required any pressors. She without enteral feeding for nutritional support and she is currently on vital AF this is an hour. The patient has no fever. White cell count is at 3 with a hemoglobin of 9.1. The blood gases from today shows a pH of 7.47 with a pCO2 of 34 and pO2 of 162. Recent electrolytes are stable and the renal function is also stable with a creatinine of 0.9 and a BUN of 24 and a sodium level of 144. She is on IV cefepime regarding Serratia endocarditis and sepsis. Overall fluid balance is -1.2 L in the chest x-ray still showing interstitial edema ET tube is in a good location. Note that hemoglobin also dropped down to 6.5. The patient r eceived a total of 2 units of packed RBC in the morning hemoglobin is up in 1 is currently stable. No signs of any bleeding. No fever. No chills. No hemoptysis. 02/12/2022, the patient is extubated. The patient is currently on room air oxygen. Chest x-ray shows some increased interstitial markings and some right perihilar fullness, likely vascular in nature. The patient remains on IV cefe pime. Awaiting follow-up cultures. Hemodynamically stable. The patient is afebrile. No confusion. Altered mentation. Upon further questioning, the patient denies using IV drugs. The patient's white cell count is at 4.3 with a hemoglobin 9.2. BUN is at 27 with a creatinine of 0.9 and sodium level is 144. No other complaints otherwise. Neurologically intact. Reevaluated today on 02/13/22, patient was initially intubated on 02/09, extubated on 02/11, patient presented with acute pulmonary edema, she has severe aortic insufficiency and aortic endocarditis secondary to Serratia. Treated with cefepime. Today the patient is complaining of diarrhea, patient is being screened for possible C. difficile colitis. Otherwise the patient is doing great, she is on room air, she is not in any distress, and C. diff screening is pending. WBC count is 4.8 hemoglobin is 9.4. Electrolytes are normal except for low potassium of 3.1, being corrected as per protocol. Patient was evaluated today on 02/14, seen by cardiothoracic surgery, and the plan is to eventually undergo aortic valve replacement. However the patient will be seen by gastroenterology for colonoscopy and GI clearance because of her recurrent history of colitis. Patient had negative screening for C. diff yesterday. Today the patient is relatively asymptomatic, her diarrhea has resolved. Patient is doing great. She is presently an overflow in the ICU Objective - Vital Signs Vital signs: Vital Signs Temp 98.0 F 02/14/22 08:00 Pulse 87 02/14/22 08:00 Resp 20 02/14/22 08:00 BP 145/59 02/14/22 08:00 Pulse Ox 97 02/14/22 08:00 FiO2 40 02/11/22 10:45 Intake & Output 02/13/22 02/14/22 02/14/22 18:59 06:59 18:59 Intake Total 260 240 260 Output Total 99 3 Balance 161 240 257 Weight 74.1 kg 74.3 kg Intake: IV 260 120 260 Cefepime 2 gm In Sodium 200 100 100 Chloride 0.9% 100 ml @ 25 mls/hr IVPB Q8HR [facility] Rx# :[id number] Sodium Chloride 0.9% 1, 60 20 160 000 ml @ 20 mls/hr IV . Q24H [facility] Rx#:[id number] Oral 120 Output: Urine 95 3 Stool 4 Other: Voiding Method Indwelling Catheter Indwelling Catheter Indwelling Catheter # Voids 4 3 3 - Exam Physical Exam: Revealed a 36-year-old female in no distress on room air. Head: Atraumatic, normocephalic. HEENT:[Neck is supple.] [No neck masses.] [No thyromegaly.] [No JVD.] Chest: [Clear throughout, no crackles, no rhonchi, no wheezes.] Cardiac Exam: [Normal S1 and S2, no S3 gallop, 2/6 systolic murmur thought the precordium. Abdomen: [Soft, nontender, no megaly, no rebound, no guarding, normal bowel sounds.] Extremities: [No clubbing, no edema, no cyanosis.] Neurological Exam: [No focal neurologic deficit.] Psychiatric: Normal mood affect and normal mental status examination. Skin: No rashes. Musculoskeletal: No deformities and no limitation in range of motion. - Labs CBC & Chem 7: 02/13/22 06:18 02/13/22 06:18 Labs: Microbiology - Last 24 Hours (Table) 02/11/22 12:12 Blood Culture - Preliminary Blood No Growth after 48 hours 02/11/22 12:23 Blood Culture - Preliminary Blood No Growth after 48 hours 02/09/22 10:13 Blood Culture - Preliminary Blood No Growth after 96 hours Assessment and Plan Assessment: Impression: Acute aortic valve endocarditis secondary to Serratia marcescens Severe aortic regurgitation Acute pulmonary edema secondary to severe aortic insufficiency History of recent colitis and splenic infarct Possible recurrent colitis/rule out C. difficile colitis Questionable IV drug use. Acute kidney injury possibly secondary to sepsis/infective endocarditis Acute on chronic anemia Acute hypoxic respiratory failure secondary to pulmonary edema, secondary to sev ere aortic insufficiency and aortic endocarditis. Recommendation: Continue present supportive care measures Continue antibiotics Continue to monitor blood cultures, cultures are negative so far since 02/11/22 Cardiothoracic surgery is considering aortic valve replacement, but neat GI clearance. Continue GI and DVT prophylaxis. We will continue to follow. Time with Patient: Less than 30
--- NOTE | 2022-02-14 11:59 | P.CONS ---
History of Present Illness - Reason for Consult Consult date: 02/14/22 colitis, colonoscopy Requesting physician: Kayode Ellis - Chief Complaint Diarrhea - History of Present Illness This a 36-year-old female who was recently admitted to with generalized weakness, altered mental status changes, abdominal pain and diarrhea. During that hospitalization she was treated with IV antibiotics, had a CT of the abdomen showed bowel wall edema involving the distal descending and rectosigmoid colon suggestive of underlying infectious or laboratory colitis. Also noted was splenomegaly, splenic infarct. She was also noted to be anemic and received 2 units of blood while hospitalized there. Stool C. diff was negative as well as ova and parasite. She was seen by gastroenterology as well as infectious disease. She did not undergo EGD or colonoscopy he was suggested to have EGD colonoscopy in the outpatient setting in 6-8 weeks. She was noted to have positive blood cultures for Serratia marcescens bilaterally [place]. Patient was discharged on Cipro and Flagyl and states initially diarrhea had improved, she was having more bulk. The patient again had altered mental status changes on 02/08/2022 and was brought in by ambulance to the emergency department. She was admitted with aortic valve endocarditis with severe aortic valve regurgitation, sepsis, acute hypoxic respiratory failure requiring mechanical ventilation, altered mental status, acute anemia and acute kidney injury. Patient was intubated and admitted to the ICU. She was extubated 2 days ago. Cardiology as well as cardiothoracic surgery are following patient and recommending surgical aortic valve replacement this admission. 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 She denies any recent traveling. No previous history of similar symptoms. No prior EGD or colonoscopy. Denies any history of ulcerative coli tis or Crohn's disease. She denies any bloody stool or black stool. States her stool is watery, yellow, multiple times a day, and some incontinence. Stool C. diff is negative. No further stool studies were collected. He currently denies any abdominal pain, fevers, or chills. She does have some nausea with certain foods sense however no vomiting. Labs: WBC 4.8 hemoglobin 9.4 hematocrit 30.9 platelet count 89,000 sodium 139 potassium 3.1 BUN 22 creatinine 0.[address] abdomen and pelvis done on 02/09/2022 shows no bowel inflammation to suggest colitis Review of Systems REVIEW OF SYSTEMS: CARDIOPULMONARY: No chest pain or shortness of breath. Gastrointestinal: No abdominal pain. Nausea with no vomiting. No hematemesis, coffee-ground emesis. No rectal bleeding, or melena. GENITOURINARY: No dysuria or hematuria. MUSCULOSKELETAL: Reports normal range of motion., Joint pain. SKIN: No rashes. No jaundice. ENDOCRINE: No chills, fevers. No excessive weight gain or loss. No polydipsia or polyuria. PSYCHIATRIC: Unremarkable. NEUROLOGY: No change in mental status. Denies dizziness, history of migraines. ENT: Vision unremarkable. CONSTITUTIONAL: Recent decreased appetite, weakness, fatigue. Past Medical History Past Medical History: No Reported History Additional Past Medical History / Comment(s): Sepsis ([facility]) bacterial sepsis January 2022. Back pain from an accident. anemia. 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 History of Any Multi-Drug Resistant Organisms: None Reported Past Surgical History: Unable to Obtain Additional Past Surgical History / Comment(s): wisdom tooth extraction, dental surgeries Past Anesthesia/Blood Transfusion Reactions: No Reported Reaction Smoking Status: Never smoker - Past Family History Father Family Medical History: No Reported History Mother Family Medical History: No Reported History Additional Family Medical History / Comment(s): Mother has history of bipolar Medications and Allergies Home Medications Medication Instructions Recorded Confirmed Type Potassium Chloride ER [K-Dur 20] See Taper PO DAILY 02/09/22 02/09/22 History Allergies Allergy/AdvReac Type Severity Reaction Status Date / Time lactose AdvReac Nausea & Verified 02/09/22 08:45 Vomiting & Diarrhea Sulfa (Sulfonamide AdvReac Nausea & Verified 02/09/22 08:44 Antibiotics) Vomiting & Diarrhea Physical Exam Vitals: Vital Signs Temp Pulse Resp BP Pulse Ox 02/14/22 08:00 98.0 F 87 20 145/59 97 02/14/22 04:00 99.6 F 100 30 H 149/60 95 02/14/22 00:00 98.8 F 93 26 H 135/57 97 02/13/22 20:00 98.0 F 87 20 145/59 97 02/13/22 16:00 98.7 F 98 18 128/52 98 02/13/22 12:00 98.2 F 66 18 144/61 98 Intake and Output 02/13/22 02/14/22 02/14/22 22:59 06:59 14:59 Intake Total 220 120 260 Output Total 4 3 Balance 216 120 257 Intake: IV 100 120 260 Cefepime 2 gm In Sodium 100 100 100 Chloride 0.9% 100 ml @ 25 mls/hr IVPB Q8HR [facility] Rx# :[id number] Sodium Chloride 0.9% 1, 20 160 000 ml @ 20 mls/hr IV . Q24H [facility] Rx#:[id number] Oral 120 Output: Urine 3 Stool 4 Other: Voiding Method Indwelling Catheter Indwelling Catheter Indwelling Catheter # Voids 4 3 3 Weight 74.3 kg General appearance: The patient is alert, oriented, appears in no acute distress. HET: Head is normocephalic and atraumatic. Conjunctiva pink. Sclera anicteric. Neck: Supple without lymphadenopathy. Trachea midline. Heart: S1 S2. Regular rate and rhythm. Heart murmur. Lungs: Clear to auscultation. Abdomen: Soft, nontender, mildly distended with bowel sounds. No guarding or rigidity. Skin: No rashes. No jaundice. Extremities: Normal skin color and turgor. No pedal edema. Neurological: No focal deficits. Alert and oriented x3. Results CBC & Chem 7: 02/13/22 06:18 02/13/22 06:18 Labs: Microbiology - Last 24 Hours (Table) 02/11/22 12:12 Blood Culture - Preliminary Blood No Growth after 48 hours 02/11/22 12:23 Blood Culture - Preliminary Blood No Growth after 48 hours 02/09/22 10:13 Blood Culture - Preliminary Blood No Growth after [address] scan - abdomen: report reviewed (Cardiomegaly with pleural effusions and basilar pulmonary infiltrates and atelectasis. Could be congestive heart failure. Moderately severe hepatosplenomegaly. Bilateral large kidneys. No renal obstruction. No bowel obstruction. No intestinal wall thickening seen to suggest colitis. Mild free) Assessment and Plan Assessment: 1. Diarrhea, with colitis noted on previous CT abdomen and pelvis from prior hospitalization at outside facility 2. Aortic valve endocarditis with positive blood cultures for serratia and severe aortic regurgitation 3. Congestive heart failure with acute pulmonary edema 4. Anemia Plan: This is a 36-year-old female who was recently seen and admitted in [facility] at the end of December treated for GI symptoms including diarrhea. Patient was found to be have positive blood culture for Serratia marcescens while at [facility]. She was discharged home with Cipro and Flagyl. Patient was readmitted on 02/09/2022 with altered mental status changes and admitted to the ICU with acute hypoxic respiratory failure, intubated and diagnosed with aortic valve endocarditis with severe aortic valve regurgitation requiring surgical aortic valve replacement. Cardiothoracic surgeons were concerned with patient's recent diagnosis of colitis and continued diarrhea. They are requesting colonoscopy for clearance to move forward with valve replacement. Patient is agreeable to undergo colonoscopy. The procedure was discussed with the patient at length including risks and benefits. Patient is agreeable to proceed tomorrow. Will prep this evening. Further recommendations forthcoming per Dr. Phipps's colonoscopy report. There will be no further GI services available this week. Thank you for this consultation. Dr. Bessie Phipps I agree with the dictator's note, documented as a scribe by Ruth Locke.
--- NOTE | 2022-02-14 13:15 | P.PN ---
Subjective Progress Note Date: 02/14/22 Principal diagnosis: Aortic valve endocarditis with severe aortic valve regurgitation, Serratia bacteremia, sepsis, acute hypoxic respiratory failure requiring mechanical ventilation, altered mental status, acute anemia, acute kidney injury. Previous history of bacteremia with blood cultures from [facility] positive for Serratia marcescens, recent history of colitis and splenomegaly likely splenic infarct, anxiety, PTSD with history of self mutilation The patient was seen and examined today sitting up in a recliner in the intensive care unit. Remains in sinus rhythm, hemodynamically stable on no inotropes or pressors. Blood cultures from February 11 continue to show no growth, remains afebrile. Remains on cefepime per infectious disease. Dr. Camacho did have a long discussion with the patient yesterday regarding the need for aortic valve replacement with the serious nature of her disease process that could lead to sudden cardiac . Therefore he recommends surgery during this admission. Patient seemed to understand and was in agreement at that time, how ever once parents were present they halted the process, refused endoscopy, requesting second opinion elsewhere. Discussion was again had with the patient and her parents regarding the urgency of aortic valve replacement, they wished to think about it a little longer. They were agreeable to dental clearance which is in the process of being obtained. Today the patient consents to colonoscopy which will be completed tomorrow, and she currently says she is willing to have aortic valve replacement here. She does continue to state she is nervous regarding pain control and extubation as she has had no prior surgeries for comparison, patient given much reassurance that we will continue to address her concerns. Objective - Vital Signs Vital signs: Vital Signs Temp 98.7 F 02/14/22 12:00 Pulse 82 02/14/22 12:00 Resp 20 02/14/22 12:00 BP 129/52 02/14/22 12:00 Pulse Ox 97 02/14/22 12:00 FiO2 40 02/11/22 10:45 Intake & Output 02/13/22 02/14/22 02/14/22 18:59 06:59 18:59 Intake Total 260 240 260 Output Total 99 3 Balance 161 240 257 Weight 74.1 kg 74.3 kg Intake: IV 260 120 260 Cefepime 2 gm In Sodium 200 100 100 Chloride 0.9% 100 ml @ 25 mls/hr IVPB Q8HR [facility] Rx# :[id number] Sodium Chloride 0.9% 1, 60 20 160 000 ml @ 20 mls/hr IV . Q24H [facility] Rx#:[id number] Oral 120 Output: Urine 95 3 Stool 4 Other: Voiding Method Indwelling Catheter Indwelling Catheter Indwelling Catheter # Voids 4 3 3 - Exam CONSTITUTIONAL: Appears comfortable, cooperative, no acute distress RESPIRATORY: Lungs sounds diminished bilaterally. Respirations even, nonl abored. Currently on room air with oxygen saturation 97%. Strong cough. CARDIOVASCULAR: S1, S2 present, systolic murmur present. Regular rate and rhythm, sinus rhythm on telemetry. Palpable peripheral pulses bilaterally. No edema present. No calf pain or tenderness noted. GASTROINTESTINAL: Abdomen soft, nontender, nondistended. Active bowel sounds present 4 quadrants. Tolerating diet. He continues to have watery diarrhea GENITOURINARY: [place] discontinued, continues to void INTEGUMENTARY: Skin is warm and dry with evidence of good perfusion. NEUROLOGIC: Cranial nerves II through XII intact MUSKULOSKELETAL: Able to move all extremities, strength equal bilaterally, gait normal PSYCHIATRIC: Alert and oriented to person place and time, appropriate affect although very nervous, intact judgment and insight - Allied health notes Allied health notes reviewed: nursing - Labs CBC & Chem 7: 02/13/22 06:18 02/13/22 06:18 Labs: Microbiology - Last 24 Hours (Table) 02/09/22 10:13 Blood Culture - Preliminary Blood No Growth after 120 hours 02/11/22 12:12 Blood Culture - Preliminary Blood No Growth after 48 hours 02/11/22 12:23 Blood Culture - Preliminary Blood No Growth after 48 hours Assessment and Plan Assessment: 1. Aortic valve endocarditis with severe aortic valve regurgitation 2. Serratia bacteremia, sepsis 3. Acute hypoxic respiratory failure requiring mechanical ventilation 4. Altered mental status this admission 5. Acute on chronic anemia, status post blood transfusion 6. Acute kidney injury 7. Recent history of colitis and splenomegaly likely splenic infarct 8. History of anxiety 9. PTSD with history of self mutilation Plan: 1. Recommend surgical aortic valve replacement this admission. Patient needs endoscopy first which is scheduled for tomorrow 2. Continue antibiotics as directed by infectious disease, monitor blood cultures, blood cultures drawn 02/11/2022 remain negative 3. Patient will need dental clearance. Panorex completed, dental consult ordered 4. Continue to follow chest x-ray, labs. Will obtain carotid dopplers and bedside spirometry for completion of preoperative testing 5. Continue supportive care 6. Continue preoperative teaching with patient/parents 7. Management of other comorbidities per internal medicine, cardiology, Gen. surgery Addendum: Patient's parents updated with plan. They had questions about the possibility of the aortic valve being replaced without open heart surgery- explained that this is not an option, anatomy and how surgery is done was explained which they seemed receptive to. Panorex reviewed by Dr. Jean-patient needs dental extraction which Dr. Jean is willing to come to the hospital to complete tomorrow morning. Patient/parents informed, patient states she absolutely will not have extraction completed without conscious sedation as she has had with all her dental work. Reviewed with Dr. Jean who will defer treatment as conscious sedation is not warranted. In addition, patient's mother stated that they don't want Dr. Camacho to perform surgery, they would like to interview the other cardiothoracic surgeons and pick which surgeon they like. Explained that surgery needs to be done very soon, parents state they are aware but want to choose the surgeon. Will discuss with Dr. Camacho, Dr. Santoyo, and Dr. Juárez.
--- NOTE | 2022-02-14 14:19 | P.PN ---
Subjective Progress Note Date: 02/14/22 CHIEF COMPLAINT: Colitis HISTORY OF PRESENT ILLNESS: The patient is a 36-year-old female with complicated history of colitis including valvular vegetation who was about to be transferred to outside facility for further management. Patient remains in the ICU. She reports that she is still having diarrhea. Her stool for C. diff was negative. She was started on Imodium. Patient has been evaluated by GI service and they are planning for colonoscopy tomorrow. Afebrile. No new labs for today. PHYSICAL EXAM: VITAL SIGNS: Reviewed GENERAL: Well-developed in no acute distress. HEENT: No sclera icterus. Extraocular movements grossly intact. Moist buccal mucosa. Head is atraumatic, normocephalic. Hears conversational speech. No nasal drainage. NECK: Supple without lymphadenopathy. CHEST: Non-labored respirations and equal bilateral excursions. CARDIOVASCULAR: Palpable 2+ radial pulses. ABDOMEN: Soft. Nondistended. Nontender. MUSCULOSKELETAL: No clubbing or cyanosis. NEUROLOGIC: No focal or lateralizing signs. Cranial nerves II through XII grossly intact. PSYCH: Appropriate affect. Alert and oriented to person, place and time. SKIN: Well perfused. Good skin turgor. ASSESSMENT: 1. Aortic valve endocarditis with bacteremia 2. Sepsis due to valvular vegetation 3. Colitis 4. Hypokalemia patient received replacement PLAN: -Colonoscopy per GI service tomorrow, 02/15/2022 -Continue antibiotics per ID -Continue ICU management Physician Security Infrastructure Engineer note has been reviewed by physician. Signing provider agrees with the documented findings, assessment, and plan of care. Objective - Vital Signs Vital signs: Vital Signs Temp 98.7 F 02/14/22 12:00 Pulse 82 02/14/22 12:00 Resp 20 02/14/22 12:00 BP 129/52 02/14/22 12:00 Pulse Ox 97 02/14/22 12:00 FiO2 40 02/11/22 10:45 Intake & Output 02/13/22 02/14/22 02/14/22 18:59 06:59 18:59 Intake Total 260 240 260 Output Total 99 3 Balance 161 240 257 Weight 74.1 kg 74.3 kg Intake: IV 260 120 260 Cefepime 2 gm In Sodium 200 100 100 Chloride 0.9% 100 ml @ 25 mls/hr IVPB Q8HR [facility] Rx# :[id number] Sodium Chloride 0.9% 1, 60 20 160 000 ml @ 20 mls/hr IV . Q24H [facility] Rx#:[id number] Oral 120 Output: Urine 95 3 Stool 4 Other: Voiding Method Indwelling Catheter Indwelling Catheter Indwelling Catheter # Voids 4 3 3 - Labs CBC & Chem 7: 02/13/22 06:18 02/13/22 06:18 Labs: Microbiology - Last 24 Hours (Table) 02/09/22 10:13 Blood Culture - Preliminary Blood No Growth after 120 hours 02/11/22 12:12 Blood Culture - Preliminary Blood No Growth after 48 hours 02/11/22 12:23 Blood Culture - Preliminary Blood No Growth after 48 hours
--- NOTE | 2022-02-14 14:39 | US ---
EXAMINATION TYPE: US carotid duplex BILAT DATE OF EXAM: 02/14/2022 COMPARISON: NONE CLINICAL HISTORY: preop vavle surgery. TECHNIQUE: Carotid duplex ultrasound examination. Indirect Doppler criteria was utilized. FINDINGS: EXAM MEASUREMENTS: RIGHT: Peak Systolic Velocity (PSV) cm/sec ----- Right CCA: 93.5 ----- Right ICA: 122.6 ----- Right ECA: 130.7 ICA/CCA ratio: 1.3 RIGHT: End Diastole cm/sec ----- Right CCA: 6.3 ----- Right ICA: 27.3 ----- Right ECA: 0.0 LEFT: Peak Systolic Velocity (PSV) cm/sec ----- Left CCA: 91.8 ----- Left ICA: 96.9 ----- Left ECA: 89.2 ICA/CCA ratio: 1.1 LEFT: End Diastole cm/sec ----- Left CCA: 11.5 ----- Left ICA: 18.0 ----- Left ECA: 0.0 VERTEBRALS (direction of flow): Right Vertebral: Antegrade Left Vertebral: Antegrade Rhythm: Normal SOLE LAYER HAND NOTES: No significant stenosis seen. IMPRESSION: No evidence for hemodynamically significant stenosis. Criteria for Assigning % of Stenosis / Diameter reduction (Estimation based on the indirect measurements of the internal carotid artery velocities (ICA PSV). 1. Normal (no stenosis)=ICA PSV < 125 cm/s: ratio < 2.0: ICA EDV<40 cm/s. 2. Less than 50% stenosis=ICA PSV < 125 cm/s: ratio < 2.0: ICA EDV<40 cm/s. 3. 50 to 69% stenosis=ICA PSV of 125 to 230 cm/s: ration 2.0 ? 4.0: ICA EDV 40-100 cm/s. 4. Greater than 70% stenosis to near occlusion= ICA PSV > 230 cm/s: ratio > 4.0: ICA EDV > 100 cm/s. 5. Near occlusion= ICA PSV velocities may be low or undetectable: variable ratio and ICA EDV. 6. Total occlusion=unable to detect flow.
--- NOTE | 2022-02-14 14:52 | P.GSCN ---
History of Present Illness Consult date: 02/14/22 Reason for Consult: Pt has an infected tooth #15 (Upper left second molar) with a large radiolucency and decay reaching the pulp chamber. Tooth needs root or surgical extraction before valve surgery. According to Tierney, patient declined having tooth extracted without conscious sedation, and does not want any extractions tomorrow. Therefore we won't be coming for that procedure. *Radiographically on the panorex provided, there shows a large radiolucency on the center of the mandible, more likely due to an artifact in the fact that it is CT panorex and there is no bone deficiency according to the radiology report. Thank you for your referral. Past Medical History Past Medical History: No Reported History Additional Past Medical History / Comment(s): Sepsis (Charly Peterson) bacterial sepsis January 2022. Back pain from an accident. anemia. 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 History of Any Multi-Drug Resistant Organisms: None Reported Past Surgical History: Unable to Obtain Additional Past Surgical History / Comment(s): wisdom tooth extraction, dental surgeries Past Anesthesia/Blood Transfusion Reactions: No Reported Reaction Smoking Status: Never smoker - Past Family History Father Family Medical History: No Reported History Mother Family Medical History: No Reported History Additional Family Medical History / Comment(s): Mother has history of bipolar Medications and Allergies Home Medications Medication Instructions Recorded Confirmed Type Potassium Chloride ER [K-Dur 20] See Taper PO DAILY 02/09/22 02/09/22 History Allergies Allergy/AdvReac Type Severity Reaction Status Date / Time lactose AdvReac Nausea & Verified 02/09/22 08:45 Vomiting & Diarrhea Sulfa (Sulfonamide AdvReac Nausea & Verified 02/09/22 08:44 Antibiotics) Vomiting & Diarrhea Surgical - Exam Vital Signs Temp Pulse Resp BP Pulse Ox 103 F H 111 H 16 139/79 92 L 02/08/22 22:23 02/08/22 22:23 02/08/22 22:23 02/08/22 22:23 02/08/22 22:23 Results - Labs 02/13/22 06:18 02/13/22 06:18 Microbiology - Last 24 Hours (Table) 02/11/22 12:23 Blood Culture - Preliminary Blood No Growth after 72 hours 02/11/22 12:12 Blood Culture - Preliminary Blood No Growth after 72 hours 02/09/22 10:13 Blood Culture - Preliminary Blood No Growth after 120 hours
[2022-02-14] MEDS ORDERED: PEG 3350 (236 GM/BTL) + LYTES 4,000 ML BOTTLE PO ONE (16:00)
--- NOTE | 2022-02-14 18:13 | P.PN ---
Subjective This is a pleasant 56 years old female with past medical history of anxiety, PTSD, presents with altered mental status. She is a patient of Dr. Vizcarra. Patient was admitted in the ICU from the emergency room, patient could not provide information which were obtained from medical records and staff. per ems pt was recently at [facility] for a blood infection. pt's last known well was last night at 10:30pm. pt found by family this evening altered. Patient was intubated in the emergency room Patient had a fever of 103 on admission, she is tachypneic 29-31, blood pressure 107/53 Labs reviewed on admission, WBC 8.7, low hemoglobin 6.9, low platelet 120, with thrombocytopenia which is mild ESR is elevated at 90, CRP elevated 8.9 PH normal 7.4, pCO2 normal at 37 INR 1.2 Sodium 132, potassium 3.2, creatinine 1.0. Liver enzymes are normal as well as bilirubin. Troponin is elevated at 0.37. ProBNP is elevated to 38,000 Urinalysis showing 3+ protein, large blood, RBC 127, WBC 27. Urine test is negative. Urine drug screen is positive for opioids EKG showing sinus tachycardia at [address]-T changes Chest x-ray: Acute pulmonary edema Computed tomography scan of the head and neck: Normal cervical spine with no fracture and normal CT of the brain by radiologist In the emergency room she received IV fluids with normal saline, vancomycin and ceftriaxone and ibuprofen and IV Tylenol, Dilaudid and lorazepam and succi nylcholine 02/10/2022 Patient is a pleasant 36 years old female was admitted with AMS and acute pul monary edema, she got intubated on admission and entered closely in the ICU with pulmonary/critical care team. Echocardiogram showed evidence of regurgitation on the aortic valve, which is confirmatory with WADE showed severe aortic regurgitation. Patient's risk factors with subacute bacterial endocarditis with sepsis secondary with Serratia marcescens and blood culture, a patient currently kept o n antibiotics with cefepime. IV vancomycin discontinued. She is also gentle hydration Today several consultants were on the case including pulmonary, cardiology, cardiothoracic surgery infectious disease with recommendation to transfer patient to tertiary care center I discussed the case with MICU fellow at [facility] in [place] Dr. Valladares and I discussed the case with her and she currently accepted the patient depending bed availability. 02/11/2022 Patient remains critically ill in the intensive care unit, she still intubated and on mechanical ventilation. Pulmonary/critical care to follow closely and help with vent management. She remains on broad-spectrum antibiotics of cefepime for positive blood culture with Serratia for her endocarditis I discussed the case with her report MICU team yesterday and they Accepted the patient, pending bed availability. Patient is followed closely by several consultants including cardiology, cardiothoracic and surgery teams as well as infectious disease. And WADE are noted. 02/12/2022 Patient got extubated and currently her respiratory status is stable and at baseline or close to baseline she is not tachypneic or hypoxic. This morning she was still tired and very sleepy and she could not provide information however she started waking up throughout the day and she is alert awake and oriented. Repeat chest x-ray showing clearance of pulmonary edema but there is development of right lower lobe infiltrate. Rest of vitals and labs are stable. She has low-grade temperature of 99.8 today. She is currently on cefepime. I discussed the case again with [facility] at her report, they informed me her transfer was canceled because [facility] has reached its full capacity. On reviewing this with the staff patient may not needed to be transferred and her aortic valve regurgitation be managed in this facility. However we will follow up with pulmonary/critical care team and surgery teams. 02/13/2022 Patient today is fully awake and oriented, she looks a pleasant and calm, she denies any specific symptoms to me. She looks mildly tired and lethargic. However her mentation is normal. She denies chest pain or dyspnea. No abdominal pain or vomiting or diarrhea. No urinary complaints. No headache or weakness or numbness. No dizziness. She is hemodynamically stable. Labs look stable. She's continued on IV cefepime. Repeat blood culture is negative. Cardiothoracic surgery team recommended aortic valve repair during this admission and colonoscopy to be done prior to the procedure however a decline in the procedure We will follow up with the consult recommendation 02/14/2022 Patient today awake and alert, she did not complain of from any specific complaint to me, she has insight into [facility] and she has several questions ANSWERED to her satisfaction, most of them were around colonoscopy and I'll exp pamela to her extensively. It looks like later on patient evaluated by GI team for clearance prior to expected cardiothoracic surgery to replace the aortic valve. And per GI team patient is going for colonoscopy tomorrow morning. Patient denies chest pain or dyspnea. No abdominal pain with she still have some diarrhea. Other than that she remains on cefepime as per ID team. vitals are reviewed s table. Objective - Vital Signs Vital signs: Vital Signs Temp 98.0 F 02/14/22 08:00 Pulse 87 02/14/22 08:00 Resp 20 02/14/22 08:00 BP 145/59 02/14/22 08:00 Pulse Ox 97 02/14/22 08:00 FiO2 40 02/11/22 10:45 Intake & Output 02/13/22 02/14/22 02/14/22 18:59 06:59 18:59 Intake Total 260 240 260 Output Total 99 3 Balance 161 240 257 Weight 74.1 kg 74.3 kg Intake: IV 260 120 260 Cefepime 2 gm In Sodium 200 100 100 Chloride 0.9% 100 ml @ 25 mls/hr IVPB Q8HR [facility] Rx# :[id number] Sodium Chloride 0.9% 1, 60 20 160 000 ml @ 20 mls/hr IV . Q24H [facility] Rx#:[id number] Oral 120 Output: Urine 95 3 Stool 4 Other: Voiding Method Indwelling Catheter Indwelling Catheter Indwelling Catheter # Voids 4 3 3 - Exam -GENERAL: The patient is awake and alert but tired HEENT: Pupils are round and equally reacting to light. EOMI. No scleral icterus. No conjunctival pallor. Normocephalic, atraumatic. No pharyngeal erythema. No thyromegaly. -CARDIOVASCULAR: S1 and S2 present. Systolic murmurs, rubs, or gallops. PULMONARY: Chest is clear to auscultation, no wheezing or crackles. ABDOMEN: Soft, nontender, nondistended, normoactive bowel sounds. No palpable organomegaly. MUSCULOSKELETAL: No joint swelling or deformity. EXTREMITIES: No cyanosis, clubbing, or pedal edema. NEUROLOGICAL: Gross neurological examination did not reveal any focal deficits. SKIN: No rashes. no petechiae. - Labs CBC & Chem 7: 02/13/22 06:18 02/13/22 06:18 Labs: Microbiology - Last 24 Hours (Table) 02/11/22 12:12 Blood Culture - Preliminary Blood No Growth after 48 hours 02/11/22 12:23 Blood Culture - Preliminary Blood No Growth after 48 hours 02/09/22 10:13 Blood Culture - Preliminary Blood No Growth after 96 hours Assessment and Plan Assessment: Subacute bacterial endocarditis Severe aortic regurgitation secondary to above Sepsis with fever and tachypnea, resolved Acute hypoxic respiratory failure requiring intubation and mechanical ventilation, she got extubated on 02/28, resolved Metabolic encephalopathy Acute pulmonary edema, could be acute CHF versus RDS Severe anemia, microcytic hyperchromic requiring blood transfusion 4 Elevated troponin Plan: This is a pleasant 56 years old female who presents with AMS, on mechanical ventilation, anemia Continue with antibiotics as per ID team, currently on cefepime Keep follow-up and repeat blood culture, negative so far Cardiothoracic surgery team of the case for aortic valve replacement, patient told me she is aware of the urgent need of this procedure GI team on the case for colonoscopy Several consultants on the case including infectious disease, pulmonary/critical care, cardiology, cardiothoracic surgery IV fluids were stopped Labs and medication were reviewed.. Continue same treatment. Continue with symptomatic treatment. Resume home medication. Monitor lytes and vitals. DVT and GI prophylaxis. Further recommendations as per clinical course of the patient DVT prophylaxis: no Subcutaneous heparin in view of severe anemia GI Prophylaxis: Ppi Prognosis is guarded
[2022-02-14] MEDS ORDERED: ONDANSETRON 4 MG/2 ML VIAL IVP PRN (19:46)
[2022-02-15] MEDS: CEFEPIME 2 GM in SODIUM CHLORIDE 0.9% 100 ML IVPB SCH ×3 (00:48→15:25)
[2022-02-15] MEDS ORDERED: ALPRAZolam 0.5 MG TAB PO STA (03:42)
[2022-02-15 08:17] LABS: Anisocytosis Moderate; HCT 26.6 % (34.0-46.0); HGB 8.3 gm/dL (11.4-16.0); Hypochromasia Marked; MCH 23.5 pg (25.0-35.0); MCHC 31.2 g/dL (31.0-37.0); MCV 75.3 fL (80.0-100.0); Mean Platelet Volume 7.2; Microcytosis Moderate; Poikilocytosis Slight; RBC 3.53 m/uL (3.80-5.40); RDW 20.6 % (11.5-15.5); WBC 2.9 k/uL (3.8-10.6)
[2022-02-15 08:32] LABS: ALT 19 U/L (4-34); AST 27 U/L (14-36); African American GFR (CKD) >90 (>60 ml/min/1.73 sqM); Albumin 2.3 g/dL (3.5-5.0); Alkaline Phosphatase 45 U/L (38-126); Anion Gap 8 mmol/L; Blood Urea Nitrogen 15 mg/dL (7-17); Calcium 7.4 mg/dL (8.4-10.2); Carbon Dioxide 23 mmol/L (22-30); Chloride 107 mmol/L (98-107); Glucose 121 mg/dL (74-99); Magnesium 1.4 mg/dL (1.6-2.3); Non-African American GFR(CKD) >90 (>60 ml/min/1.73 sqM); Potassium 2.9 mmol/L (3.5-5.1); Sodium 138 mmol/L (137-145); Total Bilirubin 0.5 mg/dL (0.2-1.3); Total Protein 5.6 g/dL (6.3-8.2)
[2022-02-15 08:33] LABS: Platelet Count 59 k/uL (150-450)
[2022-02-15] MEDS: CHOLESTYRAMINE (WITH SUGAR) 4 GM PACKET PO SCH ×2 (08:52→18:04)
[2022-02-15] MEDS: PANTOPRAZOLE 40 MG/10 ML VIAL IVP SCH (09:26)
[2022-02-15] MEDS: POTASSIUM CHLORIDE ER 20 MEQ TAB.ER PO SCH ×2 (09:27→10:31)
[2022-02-15] MEDS: SODIUM CHLORIDE 0.9% 1,000 ML IV SCH (09:27)
--- NOTE | 2022-02-15 10:04 | P.PN ---
Subjective PROGRESS NOTE The patient is a 36-year-old female who presented with progressive dyspnea, change in mental status requiring mechanical ventilation. She was febrile and had positive blood cultures. She was recently discharged from [facility] with diarrhea and positive blood cultures as well with change in mental status. Her echocardiogram performed yesterday showed possible aortic valve vegetations that was confirmed on the transesophageal echocardiogram with severe aortic regurgitation and a tricuspid aortic valve. She had moderate mitral regurgitation. Her echocardiogram at [facility] on January 25 showed a normal systolic function with trace aortic regurgitation and no mention of vegetations. She had at [facility] evidence of splenic infarct and colitis as well has severe anemia. She continues to be intubated, tachycardic at times. Her blood pressure is stable. The color of her urine is better. There is no evidence of malignant arrhythmia. She continues to be febrile. Her urinary output is good. Her blood cultures were positive for Serratia Marcescens which is the same bacteria noted at [facility]. She was seen by the cardiovascular team yesterday. Her computed tomography scan of the abdomen showed moderately severe hepatosplenomegaly was bilateral enlargement of the kidneys. She had cardiomegaly with pleural effusion and basilar pulmonary infiltrate atelectasis. No suggestion of colitis was noted. February 11: The patient remains intubated and sedated, in sinus mechanism, hemodynamically stable on no vasopressors. She has good urinary output. There is no evidence of malignant arrhythmia. Her blood pressure were positive for Serratia marcesce ns. She is afebrile. Her echocardiogram showed severe aortic regurgitation with evidence of vegetation on a tricuspid aortic valve and question of ulceration noted. Her systolic function was 50-55%. On the echocardiogram performed at [facility] recently there is no documentation of the vegetation and she had trace AI. The patient is being evaluated to be transferred to tertiary care hospital for further treatment. February 12: The patient is extubated, hemodynamically stable, denies any chest discomfort, dizziness or palpitations. She continues to be in sinus mechanism. She had no evidence of atrial arrhythmia. She cannot recall the episode prior to admission. She denies any knowledge of valvular problem in the past. She denies any history of IV drug abuse. She remains afebrile. Her urinary output has been stable. She received one dose of IV Lasix yesterday. Repeat blood culture from February 09 showed no growth after 48 hours. February 13: Patient seen and examined. Patient extubated yesterday and currently on nasal cannula. Having diarrhea. She admits she is lactose intolerant. Does not have much of an appetite. Hemodynamically stable. Cardiothoracic surgery deferring surgery until blood cultures if cleared. Blood cultures from 02/11 no growth to date. 02/14 Patient seen and examined. Patient concerned about undergoing colonoscopy and multiple questions yesterday. Today she feels she would likely prefer a mechanical valve and is more agreeable to colonoscopy. Discussed findings and recommendations. Patient denies any chest pain or pressure. Does have mild dyspnea with lying flat. 02/15 Patient seen and examined. Patient still having some dyspnea however overall fairly well controlled. Underwent prep for colonoscopy today. Patient having difficulty making decisions regarding plan of care with family. Vitals reviewed LUNGS: Clear to auscultation anteriorly HEART: Regular rate and rhythm, S1, S2. No S3. systolic ejection murmur with diastolic murmur at the base 08/07 ABDOMEN: Soft, positive bowel sounds, no organomegaly EXTREMETIES: No edema IMPRESSION: 1. 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 Colitis and spleen infarct by CAT scan at [facility] 3. Respiratory failure, resolved 4. Change in mental status prior to admission related to the sepsis 5. Anemia, most likely related to the infectious process, improved 6. Abnormal renal functions, resolved PLAN: 1. IV antibiotics per infectious disease 2. Splenic infarct is likely related to a septic emboli 3. Colonoscopy today. Patient is dental clearance. Discussed recommendations for valve replacement and will need to make decisions regarding surgeon and place of care. Patient understanding. Objective - Vital Signs Vital signs: Vital Signs Temp 98.2 F 02/15/22 08:00 Pulse 95 02/15/22 08:00 Resp 20 02/15/22 08:00 BP 136/65 02/15/22 08:00 Pulse Ox 95 02/15/22 04:00 FiO2 40 02/11/22 10:45 Intake & Output 02/14/22 02/15/22 02/15/22 18:59 06:59 18:59 Intake Total 1240 2420 Output Total 6 1452 Balance 1234 968 Weight 77.8 kg Intake: IV 440 170 Cefepime 2 gm In Sodium 200 100 Chloride 0.9% 100 ml @ 25 mls/hr IVPB Q8HR [facility] Rx# :[id number] Sodium Chloride 0.9% 1, 240 70 000 ml @ 20 mls/hr IV . Q24H [facility] Rx#:[id number] Oral 800 2250 Output: Urine 1200 Stool 6 252 Other: Voiding Method Indwelling Catheter Bedside Commode Bedside Commode # Voids 3 1 # Bowel Movements 1 - Labs CBC & Chem 7: 02/15/22 07:54 02/15/22 08:04 Labs: Abnormal Lab Results - Last 24 Hours (Table) 02/15/22 02/15/22 Range/Units 07:54 08:04 WBC 2.9 L (3.8-10.6) k/uL RBC 3.53 L (3.80-5.40) m/uL Hgb 8.3 L (11.4-16.0) gm/dL Hct 26.6 L (34.0-46.0) % MCV 75.3 L (80.0-100.0) fL MCH 23.5 L (25.0-35.0) pg RDW 20.6 H (11.5-15.5) % Plt Count 59 L (150-450) k/uL Potassium 2.9 L (3.5-5.1) mmol/L Glucose 121 H (74-99) mg/dL Calcium 7.4 L (8.4-10.2) mg/dL Magnesium 1.4 L (1.6-2.3) mg/dL Total Protein 5.6 L (6.3-8.2) g/dL Albumin 2.3 L (3.5-5.0) g/dL Microbiology - Last 24 Hours (Table) 02/11/22 12:23 Blood Culture - Preliminary Blood No Growth after 72 hours 02/11/22 12:12 Blood Culture - Preliminary Blood No Growth after 72 hours 02/09/22 10:13 Blood Culture - Preliminary Blood No Growth after 120 hours
--- NOTE | 2022-02-15 10:29 | P.PN ---
Subjective Progress Note Date: 02/14/22 Principal diagnosis: Gram-negative bacteremia and aortic valve endocarditis Patient is a 36 year female presenting to the hospital with acute respiratory failure in this patient to have evidence of gram-negative bacteremia and there was concern for vegetation on the aortic valve on today's evaluation that is 02/14/2022, , The patient denies having any fever or any chills, the patient is breathing comfortably on room air, the patient denies having any chest pain or shortness with minimal cough no nausea vomiting no abdominal pain patient complaining of diarrhea and apparently is undergoing bowel prep for colonoscopy Objective - Vital Signs Vital signs: Vital Signs Temp 98.7 F 02/14/22 12:00 Pulse 82 02/14/22 12:00 Resp 20 02/14/22 12:00 BP 129/52 02/14/22 12:00 Pulse Ox 97 02/14/22 12:00 FiO2 40 02/11/22 10:45 Intake & Output 02/13/22 02/14/22 02/14/22 18:59 06:59 18:59 Intake Total 260 240 260 Output Total 99 3 Balance 161 240 257 Weight 74.1 kg 74.3 kg Intake: IV 260 120 260 Cefepime 2 gm In Sodium 200 100 100 Chloride 0.9% 100 ml @ 25 mls/hr IVPB Q8HR [facility] Rx# :[id number] Sodium Chloride 0.9% 1, 60 20 160 000 ml @ 20 mls/hr IV . Q24H [facility] Rx#:[id number] Oral 120 Output: Urine 95 3 Stool 4 Other: Voiding Method Indwelling Catheter Indwelling Catheter Indwelling Catheter # Voids 4 3 3 - Exam GENERAL DESCRIPTION: Middle-aged female lying in bed in no distress RESPIRATORY SYSTEM: Unlabored breathing , decreased breath sounds at bases HEART: S1 S2 regular rate and rhythm , ABDOMEN: Soft , no tenderness EXTREMITIES: No edema feet - Labs CBC & Chem 7: 02/15/22 07:54 02/15/22 08:04 Labs: Microbiology - Last 24 Hours (Table) 02/11/22 12:12 Blood Culture - Preliminary Blood No Growth after 48 hours 02/11/22 12:23 Blood Culture - Preliminary Blood No Growth after 48 hours 02/09/22 10:13 Blood Culture - Preliminary Blood No Growth after 96 hours Assessment and Plan (1) Sepsis Current Visit: Yes Status: Acute Code(s): A41.9 - SEPSIS, UNSPECIFIED ORGANISM SNOMED Code(s): 01162404 Plan: 1patient presented to hospital with sepsis in this patient did have a fever tachycardia tachypnea with evidence of vegetation on aortic wall likely seco ndary to endocarditis, blood culture has been finalized and Serratia from her repeat blood culture had been negative as 2patient Clinical condition is stable patient repeat blood culture has been neg ative continue with cefepime and monitor clinical course closely Time with Patient: Less than 30
[2022-02-15] MEDS: MAGNESIUM SULFATE-D5W PMX 1 GM in DEXTROSE/WATER 1 100ML.BAG IVPB SCH ×2 (10:30→11:45)
--- NOTE | 2022-02-15 12:32 | P.PN ---
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 Attempts were made to transfer this patient to [facility]. Unfortunately, due to bad situations, patient was unable to transfer. As such, the patient stayed with us. She was accepted to go to transfer to [facility] and this did not happen. Meanwhile, the patient remains hemodynamically stable. This morning to the performed today to 55 mcg/kg per minute. She is on assist control mode at the rate of 16 with a tidal volume of 450 and FiO2 of 40% with a PEEP of 5. She is hemodynamically stable and she has not required any pressors. She without enteral feeding for nutritional support and she is currently on vital AF this is an hour. The patient has no fever. White cell count is at 3 with a hemoglobin of 9.1. The blood gases from today shows a pH of 7.47 with a pCO2 of 34 and pO2 of 162. Recent electrolytes are stable and the renal function is also stable with a creatinine of 0.9 and a BUN of 24 and a sodium level of 144. She is on IV cefepime regarding Serratia endocarditis and sepsis. Overall fluid balance is -1.2 L in the chest x-ray still showing interstitial edema ET tube is in a good location. Note that hemoglobin also dropped down to 6.5. The patient r eceived a total of 2 units of packed RBC in the morning hemoglobin is up in 1 is currently stable. No signs of any bleeding. No fever. No chills. No hemoptysis. 02/12/2022, the patient is extubated. The patient is currently on room air oxygen. Chest x-ray shows some increased interstitial markings and some right perihilar fullness, likely vascular in nature. The patient remains on IV cefe pime. Awaiting follow-up cultures. Hemodynamically stable. The patient is afebrile. No confusion. Altered mentation. Upon further questioning, the patient denies using IV drugs. The patient's white cell count is at 4.3 with a hemoglobin 9.2. BUN is at 27 with a creatinine of 0.9 and sodium level is 144. No other complaints otherwise. Neurologically intact. Reevaluated today on 02/13/22, patient was initially intubated on 02/09, extubated on 02/11, patient presented with acute pulmonary edema, she has severe aortic insufficiency and aortic endocarditis secondary to Serratia. Treated with cefepime. Today the patient is complaining of diarrhea, patient is being screened for possible C. difficile colitis. Otherwise the patient is doing great, she is on room air, she is not in any distress, and C. diff screening is pending. WBC count is 4.8 hemoglobin is 9.4. Electrolytes are normal except for low potassium of 3.1, being corrected as per protocol. Patient was evaluated today on 02/14, seen by cardiothoracic surgery, and the plan is to eventually undergo aortic valve replacement. However the patient will be seen by gastroenterology for colonoscopy and GI clearance because of her recurrent history of colitis. Patient had negative screening for C. diff yesterday. Today the patient is relatively asymptomatic, her diarrhea has resolved. Patient is doing great. She is presently an overflow in the ICU Reevaluated today on 02/15/22, patient is doing well, no active pulmonary symptoms, patient declined tooth traction as recommended by dentist, underwent prep for colonoscopy today, overall the patient is doing great. And surgery to be set up at a later date. In the meantime a recommending morning the patient out of the ICU to a cardiac floor. Objective - Vital Signs Vital signs: Vital Signs Temp 98.9 F 02/15/22 11:51 Pulse 94 02/15/22 11:51 Resp 18 02/15/22 11:51 BP 138/62 02/15/22 11:51 Pulse Ox 96 02/15/22 11:51 FiO2 40 02/11/22 10:45 Intake & Output 02/14/22 02/15/22 02/15/22 18:59 06:59 18:59 Intake Total 1240 2420 Output Total 6 1452 Balance 1234 968 Weight 77.8 kg Intake: IV 440 170 Cefepime 2 gm In Sodium 200 100 Chloride 0.9% 100 ml @ 25 mls/hr IVPB Q8HR [facility] Rx# :[id number] Sodium Chloride 0.9% 1, 240 70 000 ml @ 20 mls/hr IV . Q24H [facility] Rx#:[id number] Oral 800 2250 Output: Urine 1200 Stool 6 252 Other: Voiding Method Indwelling Catheter Bedside Commode Bedside Commode # Voids 3 1 # Bowel Movements 1 - Exam Physical Exam: Revealed a 36-year-old female in no distress on room air. Head: Atraumatic, normocephalic. HEENT:[Neck is supple.] [No neck masses.] [No thyromegaly.] [No JVD.] Chest: [Clear throughout, no crackles, no rhonchi, no wheezes.] Cardiac Exam: [Normal S1 and S2, no S3 gallop, 2/6 systolic murmur thought the precordium. Abdomen: [Soft, nontender, no megaly, no rebound, no guarding, normal bowel sounds.] Extremities: [No clubbing, no edema, no cyanosis.] Neurological Exam: [No focal neurologic deficit.] Psychiatric: Normal mood affect and normal mental status examination. Skin: No rashes. Musculoskeletal: No deformities and no limitation in range of motion. - Labs CBC & Chem 7: 02/15/22 07:54 02/15/22 08:04 Labs: Abnormal Lab Results - Last 24 Hours (Table) 02/15/22 02/15/22 Range/Units 07:54 08:04 WBC 2.9 L (3.8-10.6) k/uL RBC 3.53 L (3.80-5.40) m/uL Hgb 8.3 L (11.4-16.0) gm/dL Hct 26.6 L (34.0-46.0) % MCV 75.3 L (80.0-100.0) fL MCH 23.5 L (25.0-35.0) pg RDW 20.6 H (11.5-15.5) % Plt Count 59 L (150-450) k/uL Potassium 2.9 L (3.5-5.1) mmol/L Glucose 121 H (74-99) mg/dL Calcium 7.4 L (8.4-10.2) mg/dL Magnesium 1.4 L (1.6-2.3) mg/dL Total Protein 5.6 L (6.3-8.2) g/dL Albumin 2.3 L (3.5-5.0) g/dL Microbiology - Last 24 Hours (Table) 02/11/22 12:23 Blood Culture - Preliminary Blood No Growth after 72 hours 02/11/22 12:12 Blood Culture - Preliminary Blood No Growth after 72 hours 02/09/22 10:13 Blood Culture - Preliminary Blood No Growth after 120 hours Assessment and Plan Assessment: Impression: Acute aortic valve endocarditis secondary to Serratia marcescens Severe aortic regurgitation Acute pulmonary edema secondary to severe aortic insufficiency History of recent colitis and splenic infarct Possible recurrent colitis/rule out C. difficile colitis Questionable IV drug use. Acute kidney injury possibly secondary to sepsis/infective endocarditis Acute on chronic anemia Acute hypoxic respiratory failure secondary to pulmonary edema, secondary to severe aortic insufficiency and aortic endocarditis. Recommendation: Continue present supportive care measures Continue antibiotics as per infectious disease on the case. Continue to monitor blood cultures, cultures are negative so far since 02/11/22 Cardiothoracic surgery is considering aortic valve replacement, but neat GI clearance. Continue GI and DVT prophylaxis. Transfer patient out of the ICU Will follow as needed Time with Patient: Less than 30
--- NOTE | 2022-02-15 12:35 | P.PN ---
Subjective Progress Note Date: 02/15/22 CHIEF COMPLAINT: Colitis HISTORY OF PRESENT ILLNESS: The patient is a 36-year-old female with complicated history of colitis including valvular vegetation. Patient remains in the ICU. She did have a low-grade temp of 100 this morning. She is sleeping comfortably. She is scheduled for colonoscopy with GI service today. No abdominal pain reported. WBC is 2.9 Hgb 8.3 platelets 59 sodium 138 potassium 2.9 creatinine 0.82 magnesium 1.4. Patient seen by dentist who recommended surgical extraction of infected tooth. Apparently patient declined procedure. PHYSICAL EXAM: VITAL SIGNS: Reviewed GENERAL: Well-developed in no acute distress. HEENT: No sclera icterus. Extraocular movements grossly intact. Moist buccal mucosa. Head is atraumatic, normocephalic. Hears conversational speech. No nasal drainage. NECK: Supple without lymphadenopathy. CHEST: Non-labored respirations and equal bilateral excursions. CARDIOVASCULAR: Palpable 2+ radial pulses. ABDOMEN: Soft. Nondistended. Nontender. MUSCULOSKELETAL: No clubbing or cyanosis. NEUROLOGIC: No focal or lateralizing signs. Cranial nerves II through XII grossly intact. PSYCH: Appropriate affect. Alert and oriented to person, place and time. SKIN: Well perfused. Good skin turgor. ASSESSMENT: 1. Aortic valve endocarditis with bacteremia 2. Sepsis due to valvular vegetation 3. Colitis 4. Hypokalemia patient received replacement PLAN: -Colonoscopy per GI service today, 02/15/2022 -Continue antibiotics per ID -Continue ICU management Physician Director Of Software Engineering note has been reviewed by physician. Signing provider agrees with the documented findings, assessment, and plan of care. Objective - Vital Signs Vital signs: Vital Signs Temp 98.9 F 02/15/22 11:51 Pulse 94 02/15/22 11:51 Resp 18 02/15/22 11:51 BP 138/62 02/15/22 11:51 Pulse Ox 96 02/15/22 11:51 FiO2 40 02/11/22 10:45 Intake & Output 02/14/22 02/15/22 02/15/22 18:59 06:59 18:59 Intake Total 1240 2420 Output Total 6 1452 Balance 1234 968 Weight 77.8 kg Intake: IV 440 170 Cefepime 2 gm In Sodium 200 100 Chloride 0.9% 100 ml @ 25 mls/hr IVPB Q8HR [facility] Rx# :[id number] Sodium Chloride 0.9% 1, 240 70 000 ml @ 20 mls/hr IV . Q24H [facility] Rx#:[id number] Oral 800 2250 Output: Urine 1200 Stool 6 252 Other: Voiding Method Indwelling Catheter Bedside Commode Bedside Commode # Voids 3 1 # Bowel Movements 1 - Labs CBC & Chem 7: 02/15/22 07:54 02/15/22 08:04 Labs: Abnormal Lab Results - Last 24 Hours (Table) 02/15/22 02/15/22 Range/Units 07:54 08:04 WBC 2.9 L (3.8-10.6) k/uL RBC 3.53 L (3.80-5.40) m/uL Hgb 8.3 L (11.4-16.0) gm/dL Hct 26.6 L (34.0-46.0) % MCV 75.3 L (80.0-100.0) fL MCH 23.5 L (25.0-35.0) pg RDW 20.6 H (11.5-15.5) % Plt Count 59 L (150-450) k/uL Potassium 2.9 L (3.5-5.1) mmol/L Glucose 121 H (74-99) mg/dL Calcium 7.4 L (8.4-10.2) mg/dL Magnesium 1.4 L (1.6-2.3) mg/dL Total Protein 5.6 L (6.3-8.2) g/dL Albumin 2.3 L (3.5-5.0) g/dL Microbiology - Last 24 Hours (Table) 02/09/22 10:13 Blood Culture - Final Blood No Growth after 144 hours 02/11/22 12:23 Blood Culture - Preliminary Blood No Growth after 72 hours 02/11/22 12:12 Blood Culture - Preliminary Blood No Growth after 72 hours
[2022-02-15] MEDS ORDERED: PROPOFOL 10 MG/ML 20 ML VIAL IV ONE ×2 (13:23→14:45)
[2022-02-15] MEDS ORDERED: LACTATED RINGERS 1,000 ML IV ONE ×2 (13:24→15:01)
--- NOTE | 2022-02-15 13:43 | P.PCN ---
Date of Procedure: 02/15/22 Procedure(s) Performed: BRIEF HISTORY: Patient is a 36-year-old pleasant female scheduled for a colonoscopy as a part of evaluation of intermittent diarrhea and blood in the stool. She was admitted to [facility] and was diagnosed with serratia bacteremia and subsequently was diagnosed with infective endocarditis. She had a CAT scan of the abdomen done 3 weeks ago that showed thickening of the left colon suspicious for acute colitis. She is scheduled for colonoscopy to rule out colonic pathology. PROCEDURE PERFORMED: Colonoscopy. PREOPERATIVE DIAGNOSIS: Intermittent diarrhea and bleeding. IV sedation per Anesthesia. PROCEDURE: After informed consent was obtained, the patient, was brought into the endoscopy unit. IV sedation was administered by Anesthesia under continuous monitoring. Digital rectal examination was normal. Initially the Olympus CF-160 flexible video colonoscope was then inserted in the rectum, gradually advanced into the cecum without any difficulty. Careful examination was performed as the scope was gradually being withdrawn. Ileocecal valve and the appendiceal orifice were visualized and appeared normal. Prep was excellent. Mucosa of the cecum, ascending colon, transverse colon, descending colon, sigmoid colon, and rectum appeared normal. Retroflexion was performed in the rectum and no lesions were seen. The patient tolerated the procedure well. IMPRESSION: Normal-appearing colon from rectum to cecum with no evidence of colitis or colorectal neoplasia. RECOMMENDATIONS: Findings of this examination were discussed with the patient. Advance diet as tolerated. Continue current management..
--- NOTE | 2022-02-15 13:48 | P.PN ---
Subjective Progress Note Date: 02/15/22 Principal diagnosis: Aortic valve endocarditis with severe aortic valve regurgitation, Serratia bacteremia, sepsis, acute hypoxic respiratory failure requiring mechanical ventilation, altered mental status, acute anemia, acute kidney injury. Previous history of bacteremia with blood cultures from [facility] positive for Serratia marcescens, recent history of colitis and splenomegaly likely splenic infarct, anxiety, PTSD with history of self mutilation The patient wasn't seen today as she was down for colonoscopy, case reviewed with Dr. Camacho. Await results of colonoscopy. Oral surgery consult ordered for possible tooth extraction under conscious sedation. Will plan for surgery when able if patient will consent. Objective - Vital Signs Vital signs: Vital Signs Temp 98.9 F 02/15/22 11:51 Pulse 94 02/15/22 11:51 Resp 18 02/15/22 11:51 BP 138/62 02/15/22 11:51 Pulse Ox 96 02/15/22 11:51 FiO2 40 02/11/22 10:45 Intake & Output 02/14/22 02/15/22 02/15/22 18:59 06:59 18:59 Intake Total 1240 2420 100 Output Total 6 1452 Balance 1234 968 100 Weight 77.8 kg Intake: IV 440 170 100 Cefepime 2 gm In Sodium 200 100 Chloride 0.9% 100 ml @ 25 mls/hr IVPB Q8HR [facility] Rx# :[id number] Sodium Chloride 0.9% 1, 240 70 000 ml @ 20 mls/hr IV . Q24H [facility] Rx#:[id number] Oral 800 2250 Output: Urine 1200 Stool 6 252 Other: Voiding Method Indwelling Catheter Bedside Commode Bedside Commode # Voids 3 1 # Bowel Movements 1 - Labs CBC & Chem 7: 02/15/22 07:54 02/15/22 13:01 Labs: Abnormal Lab Results - Last 24 Hours (Table) 02/15/22 02/15/22 Range/Units 07:54 08:04 WBC 2.9 L (3.8-10.6) k/uL RBC 3.53 L (3.80-5.40) m/uL Hgb 8.3 L (11.4-16.0) gm/dL Hct 26.6 L (34.0-46.0) % MCV 75.3 L (80.0-100.0) fL MCH 23.5 L (25.0-35.0) pg RDW 20.6 H (11.5-15.5) % Plt Count 59 L (150-450) k/uL Potassium 2.9 L (3.5-5.1) mmol/L Glucose 121 H (74-99) mg/dL Calcium 7.4 L (8.4-10.2) mg/dL Magnesium 1.4 L (1.6-2.3) mg/dL Total Protein 5.6 L (6.3-8.2) g/dL Albumin 2.3 L (3.5-5.0) g/dL Microbiology - Last 24 Hours (Table) 02/09/22 10:13 Blood Culture - Final Blood No Growth after 144 hours 02/11/22 12:23 Blood Culture - Preliminary Blood No Growth after 72 hours 02/11/22 12:12 Blood Culture - Preliminary Blood No Growth after 72 hours Assessment and Plan Assessment: 1. Aortic valve endocarditis with severe aortic valve regurgitation 2. Serratia bacteremia, sepsis 3. Acute hypoxic respiratory failure requiring mechanical ventilation 4. Altered mental status this admission 5. Acute on chronic anemia, status post blood transfusion 6. Acute kidney injury 7. Recent history of colitis and splenomegaly likely splenic infarct 8. History of anxiety 9. PTSD with history of self mutilation Plan: 1. Recommend surgical aortic valve replacement this admission if patient cons ents. Patient to have endoscopy completed today 2. Continue antibiotics as directed by infectious disease, monitor blood cultures, blood cultures drawn 02/11/2022 remain negative 3. Patient will need dental clearance. Needs extraction but will only do under conscious sedation. Oral surgeon consult placed 4. Continue to follow chest x-ray, labs. 5. Continue supportive care 6. Continue preoperative teaching with patient/parents 7. Management of other comorbidities per internal medicine, cardiology, Gen. surgery
[2022-02-15] MEDS ORDERED: POTASSIUM CHLORIDE ER 20 MEQ TAB.ER PO STA (14:08)
[2022-02-15] MEDS ORDERED: LIDOCAINE 2% INJ 20 MG/ML (2 ML VIAL) ONE (14:45)
[2022-02-15] MEDS ORDERED: MIDAZOLAM 2 MG/2 ML VIAL ONE (14:45)
[2022-02-15] MEDS ORDERED: SODIUM CHLORIDE 0.9% 100 ML BAG ONE (14:45)
[2022-02-15] MEDS ORDERED: ceFAZolin 1,000 MG VIAL ONE (14:45)
[2022-02-15] MEDS ORDERED: GELATIN SPONGE,ABSORB (SMALL) 1 EACH SPONGE TOPICAL ONE (15:01)
[2022-02-15] MEDS ORDERED: LIDOCAINE 2%-EPI 1:100,000 20 ML VIAL SUBMUCOSAL ONE ×2 (15:01)
--- NOTE | 2022-02-15 15:12 | P.GSCN ---
History of Present Illness Consult date: 02/15/22 Reason for Consult: Pt need Cardiac valve replacement and has an infected tooth. Dr Jean would not extract tooth so i was consulted. Requesting physician: Tomas Camacho History of present illness: Pt has had broken tooth number 15 that she was aware need to be extracted. she had sudden onset of diarrhea and this resulted in bacterium and endocarditis. she now need to have a heart valve replaced. Review of Systems Patient reports no pain but on the CAT scan it did show there was some infection evidence of the roots. The patient reported her dentist and asked her to have it removed while back but she never got around to it and then this endocarditis [place] otherwise she feels well. She does report some congestion and phlegm possibly due to her heart failure issues. Past Medical History Past Medical History: No Reported History Additional Past Medical History / Comment(s): Sepsis ([facility]) bacterial sepsis January 2022. Back pain from an accident. anemia. 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 History of Any Multi-Drug Resistant Organisms: None Reported Past Surgical History: Unable to Obtain Additional Past Surgical History / Comment(s): wisdom tooth extraction, dental surgeries Past Anesthesia/Blood Transfusion Reactions: No Reported Reaction Smoking Status: Never smoker - Past Family History Father Family Medical History: No Reported History Mother Family Medical History: No Reported History Additional Family Medical History / Comment(s): Mother has history of bipolar Medications and Allergies Home Medications Medication Instructions Recorded Confirmed Type Potassium Chloride ER [K-Dur 20] See Taper PO DAILY 02/09/22 02/09/22 History Allergies Allergy/AdvReac Type Severity Reaction Status Date / Time lactose AdvReac Nausea & Verified 02/09/22 08:45 Vomiting & Diarrhea Sulfa (Sulfonamide AdvReac Nausea & Verified 02/09/22 08:44 Antibiotics) Vomiting & Diarrhea Surgical - Exam Vital Signs Temp Pulse Resp BP Pulse Ox 103 F H 111 H 16 139/79 92 L 02/08/22 22:23 02/08/22 22:23 02/08/22 22:23 02/08/22 22:23 02/08/22 22:23 Patient able open her mouth completely in good spirits had just returned from her colonoscopy did not give the impression of impairment. Patient was able to answer questions immediately had elevated questions of her own and we discussed how her tooth was broken and needed to be removed. She gave her own history. Intraorally the patient had a broken tooth #15 which had no crown left elevated. The roots were sectioned with the decay. No swelling no redness no pus. Results CAT scan was reviewed that show an abscess around the buccal roots chronic in nature.. - Labs 02/15/22 07:54 02/15/22 13:01 Abnormal Lab Results - Last 24 Hours (Table) 02/15/22 02/15/22 Range/Units 07:54 08:04 WBC 2.9 L (3.8-10.6) k/uL RBC 3.53 L (3.80-5.40) m/uL Hgb 8.3 L (11.4-16.0) gm/dL Hct 26.6 L (34.0-46.0) % MCV 75.3 L (80.0-100.0) fL MCH 23.5 L (25.0-35.0) pg RDW 20.6 H (11.5-15.5) % Plt Count 59 L (150-450) k/uL Potassium 2.9 L (3.5-5.1) mmol/L Glucose 121 H (74-99) mg/dL Calcium 7.4 L (8.4-10.2) mg/dL Magnesium 1.4 L (1.6-2.3) mg/dL Total Protein 5.6 L (6.3-8.2) g/dL Albumin 2.3 L (3.5-5.0) g/dL Microbiology - Last 24 Hours (Table) 02/11/22 12:23 Blood Culture - Preliminary Blood No Growth after 96 hours 02/11/22 12:12 Blood Culture - Preliminary Blood No Growth after 96 hours 02/09/22 10:13 Blood Culture - Final Blood No Growth after 144 hours Diabetes panel 02/15/22 02/15/22 02/15/22 Range/Units 07:54 08:04 13:01 Sodium 138 (137-145) mmol/L Potassium 2.9 L 3.6 (3.5-5.1) mmol/L Chloride 107 (98-107) mmol/L Carbon Dioxide 23 (22-30) mmol/L BUN 15 (7-17) mg/dL Creatinine 0.82 (0.52-1.04) mg/dL Glucose 121 H (74-99) mg/dL Hemoglobin A1c 5.9 (0.0-6.0) % Calcium 7.4 L (8.4-10.2) mg/dL AST 27 (14-36) U/L ALT 19 (4-34) U/L Alkaline Phosphatase 45 (38-126) U/L Total Protein 5.6 L (6.3-8.2) g/dL Albumin 2.3 L (3.5-5.0) g/dL Thyroid panel 02/15/22 Range/Units 08:04 TSH 3.710 (0.465-4.680) mIU/L Calcium panel 02/15/22 Range/Units 08:04 Calcium 7.4 L (8.4-10.2) mg/dL Albumin 2.3 L (3.5-5.0) g/dL Pituitary panel 02/15/22 02/15/22 Range/Units 08:04 13:01 Sodium 138 (137-145) mmol/L Potassium 2.9 L 3.6 (3.5-5.1) mmol/L Chloride 107 (98-107) mmol/L Carbon Dioxide 23 (22-30) mmol/L BUN 15 (7-17) mg/dL Creatinine 0.82 (0.52-1.04) mg/dL Glucose 121 H (74-99) mg/dL Calcium 7.4 L (8.4-10.2) mg/dL TSH 3.710 (0.465-4.680) mIU/L Adrenal panel 02/15/22 02/15/22 Range/Units 08:04 13:01 Sodium 138 (137-145) mmol/L Potassium 2.9 L 3.6 (3.5-5.1) mmol/L Chloride 107 (98-107) mmol/L Carbon Dioxide 23 (22-30) mmol/L BUN 15 (7-17) mg/dL Creatinine 0.82 (0.52-1.04) mg/dL Glucose 121 H (74-99) mg/dL Calcium 7.4 L (8.4-10.2) mg/dL Total Bilirubin 0.5 (0.2-1.3) mg/dL AST 27 (14-36) U/L ALT 19 (4-34) U/L Alkaline Phosphatase 45 (38-126) U/L Total Protein 5.6 L (6.3-8.2) g/dL Albumin 2.3 L (3.5-5.0) g/dL Assessment and Plan Assessment: Deep decay with chronic dental abscess around tooth #15. Appeared to be intimate with her sinus but did not appear to have an opening. Plan: [place] with the plan to remove the tooth prior to her heart valve replacement the patient was eager to have it done under sedation and anesthesia could accommodate this today. Consent reviewed with the patient including but not limited to bleeding pain infection swelling need for additional extractions in the future. Also with injury to adjacent teeth tooth fragments left behind sinus complications. Time with Patient: Greater than 30 (had many questions)
--- NOTE | 2022-02-15 15:16 | P.PCN ---
Date of Procedure: 02/15/22 Preoperative Diagnosis: Chronic dental abscess tooth #15 Postoperative Diagnosis: Same Procedure(s) Performed: Surgical extraction of tooth number Implants: none Anesthesia: MAC Surgeon: Kennedy Wilkerson Estimated Blood Loss (ml): 5 IV fluids (ml): 100 Urine output (ml): 0 Pathology: none sent Condition: stable Disposition: ICU Indications for Procedure: Patient had chronic dental abscess and requires a heart valve replacement. Patient was in the intensive care unit and will be returned to her bed Operative Findings: Patient received 1 g of Ancef preoperatively Description of Procedure: Patient was moved to the operating room table in a beachchair position comfortably sedated 4 mL of 2% lidocaine was administered throat pack was placed bite block was placed patient then asked if she was awake and she did not respond full-thickness buccal flap with sectioning of the roots. The deep roots were taken out in 3 different parts. No remaining tooth fragments are noted. Gelfoam and suture was placed.
[2022-02-15] MEDS: LOPERAMIDE 2 MG CAP PO PRN (15:25)
[2022-02-15 15:36] LABS: Chol/HDL Ratio 3.92 Ratio; LDL Cholesterol,Calculated 25.9 mg/dL (0.0-131.0)
[2022-02-15 16:40] LABS: Hepatitis A Antibody IgM Nonreactive (Nonreactive); Hepatitis B Core IgM Nonreactive (Nonreactive); Hepatitis B Surface Antigen Nonreactive (Nonreactive); Hepatitis C IgG Antibody Nonreactive (Nonreactive)
[2022-02-15] MEDS: ACETAMINOPHEN TAB 500 MG TAB PO PRN (18:07)
--- NOTE | 2022-02-15 20:55 | P.PN ---
Subjective This is a pleasant 56 years old female with past medical history of anxiety, PTSD, presents with altered mental status. She is a patient of Dr. Vizcarra. Patient was admitted in the ICU from the emergency room, patient could not provide information which were obtained from medical records and staff. per ems pt was recently at [place] for a blood infection. pt's last known well was last night at 10:30pm. pt found by family this evening altered. Patient was intubated in the emergency room Patient had a fever of 103 on admission, she is tachypneic 29-31, blood pressure 107/53 Labs reviewed on admission, WBC 8.7, low hemoglobin 6.9, low platelet 120, with thrombocytopenia which is mild ESR is elevated at 90, CRP elevated 8.9 PH normal 7.4, pCO2 normal at 37 INR 1.2 Sodium 132, potassium 3.2, creatinine 1.0. Liver enzymes are normal as well as bilirubin. Troponin is elevated at 0.37. ProBNP is elevated to 38,000 Urinalysis showing 3+ protein, large blood, RBC 127, WBC 27. Urine test is negative. Urine drug screen is positive for opioids EKG showing sinus tachycardia at [address]-T changes Chest x-ray: Acute pulmonary edema Computed tomography scan of the head and neck: Normal cervical spine with no fracture and normal CT of the brain by radiologist In the emergency room she received IV fluids with normal saline, vancomycin and ceftriaxone and ibuprofen and IV Tylenol, Dilaudid and lorazepam and succi nylcholine 02/10/2022 Patient is a pleasant 36 years old female was admitted with AMS and acute pul monary edema, she got intubated on admission and entered closely in the ICU with pulmonary/critical care team. Echocardiogram showed evidence of regurgitation on the aortic valve, which is confirmatory with WADE showed severe aortic regurgitation. Patient's risk factors with subacute bacterial endocarditis with sepsis secondary with Serratia marcescens and blood culture, a patient currently kept o n antibiotics with cefepime. IV vancomycin discontinued. She is also gentle hydration Today several consultants were on the case including pulmonary, cardiology, cardiothoracic surgery infectious disease with recommendation to transfer patient to tertiary care center I discussed the case with MICU fellow at [facility] in [place] Dr. Valladares and I discussed the case with her and she currently accepted the patient depending bed availability. 02/11/2022 Patient remains critically ill in the intensive care unit, she still intubated and on mechanical ventilation. Pulmonary/critical care to follow closely and help with vent management. She remains on broad-spectrum antibiotics of cefepime for positive blood culture with Serratia for her endocarditis I discussed the case with her report MICU team yesterday and they Accepted the patient, pending bed availability. Patient is followed closely by several consultants including cardiology, cardiothoracic and surgery teams as well as infectious disease. And WADE are noted. 02/12/2022 Patient got extubated and currently her respiratory status is stable and at baseline or close to baseline she is not tachypneic or hypoxic. This morning she was still tired and very sleepy and she could not provide information however she started waking up throughout the day and she is alert awake and oriented. Repeat chest x-ray showing clearance of pulmonary edema but there is development of right lower lobe infiltrate. Rest of vitals and labs are stable. She has low-grade temperature of 99.8 today. She is currently on cefepime. I discussed the case again with [facility] at her report, they informed me her transfer was canceled because [facility] has reached its full capacity. On reviewing this with the staff patient may not needed to be transferred and her aortic valve regurgitation be managed in this facility. However we will follow up with pulmonary/critical care team and surgery teams. 02/13/2022 Patient today is fully awake and oriented, she looks a pleasant and calm, she denies any specific symptoms to me. She looks mildly tired and lethargic. However her mentation is normal. She denies chest pain or dyspnea. No abdominal pain or vomiting or diarrhea. No urinary complaints. No headache or weakness or numbness. No dizziness. She is hemodynamically stable. Labs look stable. She's continued on IV cefepime. Repeat blood culture is negative. Cardiothoracic surgery team recommended aortic valve repair during this admission and colonoscopy to be done prior to the procedure however a decline in the procedure We will follow up with the consult recommendation 02/14/2022 Patient today awake and alert, she did not complain of from any specific complaint to me, she has insight into Vel[place] and she has several questions ANSWERED to her satisfaction, most of them were around colonoscopy and I'll exp pamela to her extensively. It looks like later on patient evaluated by GI team for clearance prior to expected cardiothoracic surgery to replace the aortic valve. And per GI team patient is going for colonoscopy tomorrow morning. Patient denies chest pain or dyspnea. No abdominal pain with she still have some diarrhea. Other than that she remains on cefepime as per ID team. vitals are reviewed s table. 02/15/2022 Patient remains in the ICU, fully awake and oriented, calm and not in distress. Vitals and labs look stable. Reviewed in details Abdomen discussion with the patient looks like she is agreeable to colonoscopy. Also she told me about the need to take her to without and that she is thinking about it and that she is going to discussed with the surgeon. Cardiothoracic surgery team on the case and the planned for aortic valve replacement given the damage caused by endocarditis. Repeat blood culture are negative so far. The patient remains on IV cefepime per ID team Colonoscopy results show normal colon per report Objective - Vital Signs Vital signs: Vital Signs Temp 98.5 F 02/15/22 15:36 Pulse 94 02/15/22 15:36 Resp 22 02/15/22 15:36 BP 128/55 02/15/22 15:36 Pulse Ox 96 02/15/22 15:36 FiO2 40 02/11/22 10:45 Intake & Output 02/15/22 02/15/22 02/16/22 06:59 18:59 06:59 Intake Total 2420 200 Output Total 1452 9 Balance 968 191 Weight 77.8 kg Intake: IV 170 200 Cefepime 2 gm In Sodium 100 Chloride 0.9% 100 ml @ 25 mls/hr IVPB Q8HR [facility] Rx# :[id number] Sodium Chloride 0.9% 1, 70 000 ml @ 20 mls/hr IV . Q24H [facility] Rx#:[id number] Oral 2250 Output: Urine 1200 Stool 252 4 Estimated Blood Loss 5 Other: Voiding Method Bedside Commode Bedside Commode # Voids 1 4 # Bowel Movements 1 - Exam -GENERAL: The patient is awake and alert but tired HEENT: Pupils are round and equally reacting to light. EOMI. No scleral icterus. No conjunctival pallor. Normocephalic, atraumatic. No pharyngeal erythema. No thyromegaly. -CARDIOVASCULAR: S1 and S2 present. Systolic murmurs, rubs, or gallops. PULMONARY: Chest is clear to auscultation, no wheezing or crackles. ABDOMEN: Soft, nontender, nondistended, normoactive bowel sounds. No palpable organomegaly. MUSCULOSKELETAL: No joint swelling or deformity. EXTREMITIES: No cyanosis, clubbing, or pedal edema. NEUROLOGICAL: Gross neurological examination did not reveal any focal deficits. SKIN: No rashes. no petechiae. - Labs CBC & Chem 7: 02/15/22 07:54 02/15/22 13:01 Labs: Abnormal Lab Results - Last 24 Hours (Table) 02/15/22 02/15/22 Range/Units 07:54 08:04 WBC 2.9 L (3.8-10.6) k/uL RBC 3.53 L (3.80-5.40) m/uL Hgb 8.3 L (11.4-16.0) gm/dL Hct 26.6 L (34.0-46.0) % MCV 75.3 L (80.0-100.0) fL MCH 23.5 L (25.0-35.0) pg RDW 20.6 H (11.5-15.5) % Plt Count 59 L (150-450) k/uL Potassium 2.9 L (3.5-5.1) mmol/L Glucose 121 H (74-99) mg/dL Calcium 7.4 L (8.4-10.2) mg/dL Magnesium 1.4 L (1.6-2.3) mg/dL Total Protein 5.6 L (6.3-8.2) g/dL Albumin 2.3 L (3.5-5.0) g/dL HDL Cholesterol 18.10 L (40.00-60.00) mg/dL Microbiology - Last 24 Hours (Table) 02/11/22 12:23 Blood Culture - Preliminary Blood No Growth after 96 hours 02/11/22 12:12 Blood Culture - Preliminary Blood No Growth after 96 hours 02/09/22 10:13 Blood Culture - Final Blood No Growth after 144 hours Assessment and Plan Assessment: Subacute bacterial endocarditis Severe aortic regurgitation secondary to above Sepsis with fever and tachypnea, resolved Acute hypoxic respiratory failure requiring intubation and mechanical ventilation, she got extubated on 02/28, resolved Metabolic encephalopathy Acute pulmonary edema, could be acute CHF versus RDS Severe anemia, microcytic hyperchromic requiring blood transfusion 4 Elevated troponin Plan: This is a pleasant 56 years old female who presents with AMS, on mechanical ventilation, anemia Continue with antibiotics as per ID team, currently on cefepime Keep follow-up and repeat blood culture, negative so far Cardiothoracic surgery team of the case for aortic valve replacement, patient told me she is aware of the urgent need of this procedure GI team on the case for colonoscopy which results shows unremarkable Several consultants on the case including infectious disease, pulmonary/critical care, cardiology, cardiothoracic surgery IV fluids were stopped Labs and medication were reviewed.. Continue same treatment. Continue with symptomatic treatment. Resume home medication. Monitor lytes and vitals. DVT and GI prophylaxis. Further recommendations as per clinical course of the patient DVT prophylaxis: no Subcutaneous heparin in view of severe anemia GI Prophylaxis: Ppi Prognosis is guarded
[2022-02-16] MEDS: ACETAMINOPHEN TAB 500 MG TAB PO PRN ×4 (00:07→21:51)
[2022-02-16] MEDS: CEFEPIME 2 GM in SODIUM CHLORIDE 0.9% 100 ML IVPB SCH ×4 (00:10→23:31)
[2022-02-16] MEDS: SODIUM CHLORIDE 0.9% 1,000 ML IV SCH (06:21)
--- NOTE | 2022-02-16 07:30 | P.PN ---
Subjective Progress Note Date: 02/16/22 Principal diagnosis: Diarrhea This a 36-year-old female who was recently admitted to [facility] with generalized weakness, altered mental status changes, abdominal pain and diarrhea. During that hospitalization she was treated with IV antibiotics, had a CT of the abdomen showed bowel wall edema involving the distal descending and rectosigmoid colon suggestive of underlying infectious or laboratory colitis. Also noted was splenomegaly, splenic infarct. She was also noted to be anemic and received 2 units of blood while hospitalized there. Stool C. diff was negat jesse as well as ova and parasite. She was seen by gastroenterology as well as infectious disease. She did not undergo EGD or colonoscopy he was suggested to have EGD colonoscopy in the outpatient setting in 6-8 weeks. She was noted to have positive blood cultures for Serratia marcescens bilaterally Fowler. Patient was discharged on Cipro and Flagyl and states initially diarrhea had improved, she was having more bulk. The patient again had altered mental status changes on 02/08/2022 and was brought in by ambulance to the emergency department. She was admitted with aortic valve endocarditis with severe aortic valve regurgitation, sepsis, acute hypoxic respiratory failure requiring mecha nical ventilation, altered mental status, acute anemia and acute kidney injury. Patient was intubated and admitted to the ICU. She was extubated 2 days ago. Cardiology as well as cardiothoracic surgery are following patient and recommending surgical aortic valve replacement this admission. 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 She denies any recent traveling. No previous history of similar symptoms. No prior EGD or colonoscopy. Denies any history of ulcerative colitis or Crohn's disease. She denies any bloody stool or black stool. States her stool is watery, yellow, multiple times a day, and some incontinence. Stool C. diff is negative. No further stool studies were collected. He currently denies any abdominal pain, fevers, or chills. She does have some nausea with certain foods sense however no vomiting. 02/16/2022: Patient seen and examined as a follow-up. She was downgraded to the selective care unit yesterday. Yesterday the patient underwent colonoscopy which showed a normal colon without any evidence of colitis or neoplasm. Kane gonzales also underwent tooth extraction yesterday. Diarrhea somewhat improved. She denies any abdominal pain, nausea or vomiting. Patient states she just has decreased appetite and some nausea when she smells cooked food. She has been advanced to a ground diet due to extraction. Objective - Vital Signs Vital signs: Vital Signs Temp 98.6 F 02/16/22 03:40 Pulse 92 02/16/22 03:40 Resp 16 02/16/22 03:40 BP 131/51 02/16/22 03:40 Pulse Ox 95 02/16/22 03:40 FiO2 21 02/15/22 21:10 Intake & Output 02/15/22 02/16/22 02/16/22 18:59 06:59 18:59 Intake Total 200 560 Output Total 9 1025 Balance 191 -465 Weight 73.6 kg Intake: IV 200 60 Sodium Chloride 0.9% 1, 60 000 ml @ 20 mls/hr IV . Q24H [facility] Rx#:[id number] Intake, IV Titration 260 Amount Cefepime 2 gm In Sodium 100 Chloride 0.9% 100 ml @ 25 mls/hr IVPB Q8HR [facility] Rx# :[id number] Sodium Chloride 0.9% 1, 160 000 ml @ 20 mls/hr IV . Q24H [facility] Rx#:[id number] Oral 240 Output: Urine 1025 Stool 4 Estimated Blood Loss 5 Other: Voiding Method Bedside Commode Bedside Commode # Voids 4 1 - Exam General appearance: The patient is alert, oriented, appears in no acute distress. HET: Head is normocephalic and atraumatic. Conjunctiva pink. Sclera anicteric. Neck: Supple without lymphadenopathy. Abdomen: Soft, nontender, nondistended with bowel sounds. No guarding or rigidity. Extremities: Normal skin color and turgor. No pedal edema Skin: No rashes, no jaundice Neurological: No focal deficits. Alert and oriented x3. - Labs CBC & Chem 7: 02/16/22 07:36 02/16/22 07:36 Labs: Abnormal Lab Results - Last 24 Hours (Table) 02/15/22 02/15/22 Range/Units 07:54 08:04 WBC 2.9 L (3.8-10.6) k/uL RBC 3.53 L (3.80-5.40) m/uL Hgb 8.3 L (11.4-16.0) gm/dL Hct 26.6 L (34.0-46.0) % MCV 75.3 L (80.0-100.0) fL MCH 23.5 L (25.0-35.0) pg RDW 20.6 H (11.5-15.5) % Plt Count 59 L (150-450) k/uL Potassium 2.9 L (3.5-5.1) mmol/L Glucose 121 H (74-99) mg/dL Calcium 7.4 L (8.4-10.2) mg/dL Magnesium 1.4 L (1.6-2.3) mg/dL Total Protein 5.6 L (6.3-8.2) g/dL Albumin 2.3 L (3.5-5.0) g/dL HDL Cholesterol 18.10 L (40.00-60.00) mg/dL Microbiology - Last 24 Hours (Table) 02/11/22 12:23 Blood Culture - Preliminary Blood No Growth after 96 hours 02/11/22 12:12 Blood Culture - Preliminary Blood No Growth after 96 hours 02/09/22 10:13 Blood Culture - Final Blood No Growth after 144 hours Assessment and Plan Assessment: 1. Diarrhea, with colitis noted on previous CT abdomen and pelvis from prior hospitalization at outside facility 2. Aortic valve endocarditis with positive blood cultures for serratia and severe aortic regurgitation 3. Congestive heart failure with acute pulmonary edema 4. Anemia Plan: This is a 36-year-old female who was recently seen and admitted in [facility] at the end of December treated for GI symptoms including diarrhea. Patient was found to be have positive blood culture for Serratia marcescens while at [facility]. She was discharged home with Cipro and Flagyl. Patient was readmitted on 02/09/2022 with altered mental status changes and admitted to the ICU with acute hypoxic respiratory failure, intubated and diagnosed with aortic valve endocarditis with severe aortic valve regurgitation requiring surgical aortic valve replacement. Cardiothoracic surgeons were concerned with patient's recent diagnosis of colitis and continued diarrhea. They are requesting colonoscopy for clearance to move forward with valve replacement. Patient is agreeable to undergo colonoscopy. The procedure was discussed with the patient at length including risks and benefits. She underwent colonoscopy yesterday that showed no evidence of colitis or neoplasm. No further workup at this time. Continue with Imodium BID and as needed. Continue questran. There will be no further availability of gastroenterology in-house until Sunday. Thank you for this consultation, we will sign off at this time. Dr. Bessie Phipps I agree with the dictator's note, documented as a scribe by Ruth Locke.
[2022-02-16] MEDS: LOPERAMIDE 2 MG CAP PO PRN (08:22)
[2022-02-16] MEDS: PANTOPRAZOLE 40 MG/10 ML VIAL IVP SCH (08:24)
[2022-02-16 08:25] LABS: Anion Gap 8 mmol/L; Blood Urea Nitrogen 15 mg/dL (7-17); Calcium 7.5 mg/dL (8.4-10.2); Carbon Dioxide 24 mmol/L (22-30); Chloride 109 mmol/L (98-107); Glucose 117 mg/dL (74-99); Magnesium 1.9 mg/dL (1.6-2.3); Potassium 3.5 mmol/L (3.5-5.1); Sodium 141 mmol/L (137-145)
[2022-02-16] MEDS: LOPERAMIDE 2 MG CAP PO SCH ×2 (08:25→20:50)
[2022-02-16 08:26] LABS: African American GFR (CKD) >90 (>60 ml/min/1.73 sqM); Non-African American GFR(CKD) 86 (>60 ml/min/1.73 sqM)
[2022-02-16 08:45] LABS: Anisocytosis Moderate; Basophils % (A) 0 %; Eosinophils % (A) 1 %; HCT 27.5 % (34.0-46.0); HGB 8.6 gm/dL (11.4-16.0); Hypochromasia Marked; Lymphocytes # (A) 0.3 k/uL (1.0-4.8); Lymphocytes % (A) 9 %; MCHC 31.3 g/dL (31.0-37.0); MCV 76.6 fL (80.0-100.0); Mean Platelet Volume 7.6; Microcytosis Moderate; Monocytes # (A) 0.1 k/uL (0-1.0); Monocytes % (A) 4 %; Neutrophils # (A) 2.3 k/uL (1.3-7.7); Neutrophils % (A) 83 %; Poikilocytosis Slight; RBC 3.58 m/uL (3.80-5.40); RDW 20.7 % (11.5-15.5); WBC 2.7 k/uL (3.8-10.6)
[2022-02-16 08:51] LABS: Platelet Count 60 k/uL (150-450)
[2022-02-16] MEDS ORDERED: SCOPOLAMINE 1 MG/72 HR PATCH TRANSDERM SCH (11:15)
[2022-02-16] MEDS: CHOLESTYRAMINE (WITH SUGAR) 4 GM PACKET PO SCH ×2 (11:45→17:11)
--- NOTE | 2022-02-16 12:35 | P.PN ---
Subjective Progress Note Date: 02/16/22 HISTORY OF PRESENT ILLNESS: PROGRESS NOTE The patient is a 36-year-old female who presented with progressive dyspnea, change in mental status requiring mechanical ventilation. She was febrile and had positive blood cultures. She was recently discharged from [facility] with diarrhea and positive blood cultures as well with change in mental status. Her echocardiogram performed yesterday showed possible aortic valve vegetations that was confirmed on the transesophageal echocardiogram with severe aortic regurgitation and a tricuspid aortic valve. She had moderate mitral regurgitation. Her echocardiogram at [facility] on January 25 showed a normal systolic function with trace aortic regurgitation and no mention of vegetations. She had at [facility] evidence of splenic infarct and colitis as well has severe anemia. She continues to be intubated, tachycardic at times. Her blood pressure is stable. The color of her urine is better. There is no evidence of malignant arrhythmia. She continues to be febrile. Her urinary output is good. Her blood cultures were positive for Serratia Marcescens which is the same bacteria noted at [facility]. She was seen by the cardiovascular team yesterday. Her computed tomography scan of the abdomen showed moderately severe hepatosplenomegaly was bilateral enlargement of the kidneys. She had cardiomegaly with pleural effusion and basilar pulmonary infiltrate atelectasis. No suggestion of colitis was noted. February 11: The patient remains intubated and sedated, in sinus mechanism, hemodynamically stable on no vasopressors. She has good urinary output. There is no evidence of malignant arrhythmia. Her blood pressure were positive for Serratia marcescens. She is afebrile. Her echocardiogram showed severe aortic regurgitation with evidence of vegetation on a tricuspid aortic valve and question of ulceration noted. Her systolic function was 50-55%. On the echocardiogram performed at [facility] recently there is no documentation of the vegetation and she had trace AI. The patient is being evaluated to be transferred to tertiary care hospital for further treatment. February 12: The patient is extubated, hemodynamically stable, denies any chest discomfort, dizziness or palpitations. She continues to be in sinus mechanism. She had no evidence of atrial arrhythmia. She cannot recall the episode prior to admission. She denies any knowledge of valvular problem in the past. She denies any history of IV drug abuse. She remains afebrile. Her urinary output has been stable. She received one dose of IV Lasix yesterday. Repeat blood culture from February 09 showed no growth after 48 hours. February 13: Patient seen and examined. Patient extubated yesterday and currently on nasal cannula. Having diarrhea. She admits she is lactose intolerant. Does not have much of an appetite. Hemodynamically stable. Cardiothoracic surgery deferring surgery until blood cultures if cleared. Blood cultures from 02/11 no growth to date. 02/14 Patient seen and examined. Patient concerned about undergoing colonoscopy and multiple questions yesterday. Today she feels she would likely prefer a mechanical valve and is more agreeable to colonoscopy. Discussed findings and recommendations. Patient denies any chest pain or pressure. Does have mild dyspnea with lying flat. 02/15 Patient seen and examined. Patient still having some dyspnea however overall fairly well controlled. Underwent prep for colonoscopy today. Patient having difficulty making decisions regarding plan of care with family. 02/16/2022 Patient is status post colonoscopy revealing normal colon without evidence of colitis or neoplasm. Patient is also status post tooth extraction yesterday. Patient denies any chest pain or pressure she denies shortness of breath. Patient has been up and bleeding in her room without difficulty. Vital signs are stable. PHYSICAL EXAM: VITAL SIGNS: Reviewed. GENERAL: Well-developed in no acute distress. NECK: Supple. No JVD or thyromegaly LUNGS: Respirations even and unlabored. Lungs essentially clear to auscultation bilaterally. HEART: Regular rate and rhythm. S1 and S2 heard. Systolic and diastolic murmur noted. EXTREMITIES: Normal range of motion. No clubbing or cyanosis. Peripheral pulses intact. No lower extremity edema ASSESSMENT: 1. 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 Colitis and spleen infarct by CAT scan at [facility] 3. Respiratory failure, resolved 4. Change in mental status prior to admission related to the sepsis 5. Anemia, most likely related to the infectious process, improved 6. Abnormal renal functions, resolved PLAN: Continue current cardiac medications CTS following for AVR replacement. Await recommendations Further recommendations pending evaluation this afternoon by Dr. Santoyo Nurse practitioner note has been reviewed by physician. Signing provider agrees with the documented findings, assessment, and plan of care. Objective - Vital Signs Vital signs: Vital Signs Temp 99.2 F 02/16/22 11:35 Pulse 92 02/16/22 11:35 Resp 20 02/16/22 11:35 BP 136/63 02/16/22 11:35 Pulse Ox 96 02/16/22 11:35 FiO2 21 02/15/22 21:10 Intake & Output 02/15/22 02/16/22 02/16/22 18:59 06:59 18:59 Intake Total 200 560 75 Output Total 9 1025 Balance 191 -465 75 Weight 73.6 kg Intake: IV 200 60 Sodium Chloride 0.9% 1, 60 000 ml @ 20 mls/hr IV . Q24H [facility] Rx#:[id number] Intake, IV Titration 260 Amount Cefepime 2 gm In Sodium 100 Chloride 0.9% 100 ml @ 25 mls/hr IVPB Q8HR [facility] Rx# :[id number] Sodium Chloride 0.9% 1, 160 000 ml @ 20 mls/hr IV . Q24H [facility] Rx#:[id number] Oral 240 75 Output: Urine 1025 Stool 4 Estimated Blood Loss 5 Other: Voiding Method Bedside Commode Bedside Commode # Voids 4 1 - Labs CBC & Chem 7: 02/16/22 07:36 02/16/22 07:36 Labs: Abnormal Lab Results - Last 24 Hours (Table) 02/15/22 02/16/22 02/16/22 Range/Units 08:04 07:36 07:36 WBC 2.7 L (3.8-10.6) k/uL RBC 3.58 L (3.80-5.40) m/uL Hgb 8.6 L (11.4-16.0) gm/dL Hct 27.5 L (34.0-46.0) % MCV 76.6 L (80.0-100.0) fL MCH 24.0 L (25.0-35.0) pg RDW 20.7 H (11.5-15.5) % Plt Count 60 L (150-450) k/uL Lymphocytes # 0.3 L (1.0-4.8) k/uL Chloride 109 H (98-107) mmol/L Glucose 117 H (74-99) mg/dL Calcium 7.5 L (8.4-10.2) mg/dL HDL Cholesterol 18.10 L (40.00-60.00) mg/dL Microbiology - Last 24 Hours (Table) 02/11/22 12:23 Blood Culture - Preliminary Blood No Growth after 96 hours 02/11/22 12:12 Blood Culture - Preliminary Blood No Growth after 96 hours 02/09/22 10:13 Blood Culture - Final Blood No Growth after 144 hours
--- NOTE | 2022-02-16 13:17 | P.PN ---
Subjective Progress Note Date: 02/16/22 CHIEF COMPLAINT: Colitis HISTORY OF PRESENT ILLNESS: The patient is a 36-year-old female with complicated history of colitis including valvular vegetation. Patient was status colonoscopy which was normal. She also had a tooth extraction with Dr. Wilkerson. Patient currently on a ground diet. She does still report diarrhea and some nausea and abdominal bloating. No abdominal pain. Patient was transferred out of the ICU. She's currently on cardiac floor. Afebrile. WBC is 2.7 Hgb 8.6 platelets are 60 sodium 141 potassium is 3.5 creatinine 0.87 magnesium is up from 1.4-1.9 PHYSICAL EXAM: VITAL SIGNS: Reviewed GENERAL: Well-developed in no acute distress. HEENT: No sclera icterus. Extraocular movements grossly intact. Moist buccal mucosa. Head is atraumatic, normocephalic. Hears conversational speech. No nasal drainage. NECK: Supple without lymphadenopathy. CHEST: Non-labored respirations and equal bilateral excursions. CARDIOVASCULAR: Palpable 2+ radial pulses. ABDOMEN: Soft. Nondistended. Nontender. MUSCULOSKELETAL: No clubbing or cyanosis. NEUROLOGIC: No focal or lateralizing signs. Cranial nerves II through XII grossly intact. PSYCH: Appropriate affect. Alert and oriented to person, place and time. SKIN: Well perfused. Good skin turgor. ASSESSMENT: 1. Aortic valve endocarditis with bacteremia 2. Sepsis due to valvular vegetation 3. Colitis 4. Hypokalemia PLAN: -Scopolamine patch added for nausea -Continue antibiotics per ID -Continue supportive care -GI service added Imodium for diarrhea Physician Statistical Typist note has been reviewed by physician. Signing provider agrees with the documented findings, assessment, and plan of care. Objective - Vital Signs Vital signs: Vital Signs Temp 99.2 F 02/16/22 11:35 Pulse 92 02/16/22 11:35 Resp 20 02/16/22 11:35 BP 136/63 02/16/22 11:35 Pulse Ox 96 02/16/22 11:35 FiO2 21 02/15/22 21:10 Intake & Output 02/15/22 02/16/22 02/16/22 18:59 06:59 18:59 Intake Total 200 560 75 Output Total 9 1025 Balance 191 -465 75 Weight 73.6 kg 73.6 kg Intake: IV 200 60 Sodium Chloride 0.9% 1, 60 000 ml @ 20 mls/hr IV . Q24H [facility] Rx#:[id number] Intake, IV Titration 260 Amount Cefepime 2 gm In Sodium 100 Chloride 0.9% 100 ml @ 25 mls/hr IVPB Q8HR [facility] Rx# :[id number] Sodium Chloride 0.9% 1, 160 000 ml @ 20 mls/hr IV . Q24H [facility] Rx#:[id number] Oral 240 75 Output: Urine 1025 Stool 4 Estimated Blood Loss 5 Other: Voiding Method Bedside Commode Bedside Commode # Voids 4 1 - Labs CBC & Chem 7: 02/16/22 07:36 02/16/22 07:36 Labs: Abnormal Lab Results - Last 24 Hours (Table) 02/15/22 02/16/22 02/16/22 Range/Units 08:04 07:36 07:36 WBC 2.7 L (3.8-10.6) k/uL RBC 3.58 L (3.80-5.40) m/uL Hgb 8.6 L (11.4-16.0) gm/dL Hct 27.5 L (34.0-46.0) % MCV 76.6 L (80.0-100.0) fL MCH 24.0 L (25.0-35.0) pg RDW 20.7 H (11.5-15.5) % Plt Count 60 L (150-450) k/uL Lymphocytes # 0.3 L (1.0-4.8) k/uL Chloride 109 H (98-107) mmol/L Glucose 117 H (74-99) mg/dL Calcium 7.5 L (8.4-10.2) mg/dL HDL Cholesterol 18.10 L (40.00-60.00) mg/dL Microbiology - Last 24 Hours (Table) 02/11/22 12:23 Blood Culture - Preliminary Blood No Growth after 96 hours 02/11/22 12:12 Blood Culture - Preliminary Blood No Growth after 96 hours 02/09/22 10:13 Blood Culture - Final Blood No Growth after 144 hours
[2022-02-16] MEDS ORDERED: MD COMMUNICATION TO PHARMACY 1 EACH MISC PO ONE ×3 (14:35→14:36)
--- NOTE | 2022-02-16 15:40 | P.PN ---
Subjective Progress Note Date: 02/16/22 Principal diagnosis: Aortic valve endocarditis with severe aortic valve regurgitation, Serratia bacteremia, sepsis, acute hypoxic respiratory failure requiring mechanical ventilation, altered mental status, acute anemia, acute kidney injury. Previous history of bacteremia with blood cultures from [facility] positive for Serratia marcescens, recent history of colitis and splenomegaly likely splenic infarct, anxiety, PTSD with history of self mutilation The patient was seen and examined today with Dr. Camacho, dad was present. She underwent colonoscopy as well as tooth extraction yesterday, blood cultures remain negative. Remains in sinus rhythm and hemodynamically stable. Dr. Camacho had a very lengthy discussion with the patient and her father regarding the need for AVR, risks and benefits were reviewed, metal vs tissue valves were discussed. At this time she is willing to consent to AVR and would like a metal valve. She does understand that she will be on lifelong coumadin which will hinder her ability to bare children, and she is willing to accept this. Of note, her WBC is low this morning which is concerning, hematology will be consulted, this was discussed with the patient as well and she is agreeable. Our plan is for aortic valve replacement with OnX valve Sunday02/18/[address] Camacho. The patient and her father are agreeable with this plan. Objective - Vital Signs Vital signs: Vital Signs Temp 99.2 F 02/16/22 11:35 Pulse 92 02/16/22 11:35 Resp 20 02/16/22 11:35 BP 136/63 02/16/22 11:35 Pulse Ox 96 02/16/22 11:35 FiO2 21 02/15/22 21:10 Intake & Output 02/15/22 02/16/22 02/16/22 18:59 06:59 18:59 Intake Total 200 560 255 Output Total 9 1025 Balance 191 -465 255 Weight 73.6 kg 73.6 kg Intake: IV 200 60 180 Cefepime 2 gm In Sodium 100 Chloride 0.9% 100 ml @ 25 mls/hr IVPB Q8HR [facility] Rx# :[id number] Sodium Chloride 0.9% 1, 60 80 000 ml @ 20 mls/hr IV . Q24H [facility] Rx#:[id number] Intake, IV Titration 260 Amount Cefepime 2 gm In Sodium 100 Chloride 0.9% 100 ml @ 25 mls/hr IVPB Q8HR [facility] Rx# :[id number] Sodium Chloride 0.9% 1, 160 000 ml @ 20 mls/hr IV . Q24H [facility] Rx#:[id number] Oral 240 75 Output: Urine 1025 Stool 4 Estimated Blood Loss 5 Other: Voiding Method Bedside Commode Bedside Commode # Voids 4 1 - Exam CONSTITUTIONAL: Appears comfortable, cooperative, no acute distress RESPIRATORY: Lungs sounds diminished bilaterally. Respirations even, nonlabored. Currently on room air with oxygen saturation 96%. Strong cough. CARDIOVASCULAR: S1, S2 present, systolic murmur present. Regular rate and rhythm, sinus rhythm on telemetry. Palpable peripheral pulses bilaterally. No edema present. No calf pain or tenderness noted. GASTROINTESTINAL: Abdomen soft, nontender, nondistended. Active bowel sounds present 4 quadrants. Tolerating diet. She continues to have diarrhea GENITOURINARY: Continues to void INTEGUMENTARY: Skin is warm and dry with evidence of good perfusion. NEUROLOGIC: Cranial nerves II through XII intact MUSKULOSKELETAL: Able to move all extremities, strength equal bilaterally, gait normal PSYCHIATRIC: Alert and oriented to person place and time, appropriate affect although very nervous, intact judgment and insight - Labs CBC & Chem 7: 02/16/22 07:36 02/16/22 07:36 Labs: Abnormal Lab Results - Last 24 Hours (Table) 02/15/22 02/16/22 02/16/22 Range/Units 08:04 07:36 07:36 WBC 2.7 L (3.8-10.6) k/uL RBC 3.58 L (3.80-5.40) m/uL Hgb 8.6 L (11.4-16.0) gm/dL Hct 27.5 L (34.0-46.0) % MCV 76.6 L (80.0-100.0) fL MCH 24.0 L (25.0-35.0) pg RDW 20.7 H (11.5-15.5) % Plt Count 60 L (150-450) k/uL Lymphocytes # 0.3 L (1.0-4.8) k/uL Chloride 109 H (98-107) mmol/L Glucose 117 H (74-99) mg/dL Calcium 7.5 L (8.4-10.2) mg/dL HDL Cholesterol 18.10 L (40.00-60.00) mg/dL Microbiology - Last 24 Hours (Table) 02/11/22 12:23 Blood Culture - Preliminary Blood No Growth after 120 hours 02/11/22 12:12 Blood Culture - Preliminary Blood No Growth after 120 hours 02/09/22 10:13 Blood Culture - Final Blood No Growth after 144 hours Assessment and Plan Assessment: 1. Aortic valve endocarditis with severe aortic valve regurgitation 2. Serratia bacteremia, sepsis 3. Acute hypoxic respiratory failure requiring mechanical ventilation 4. Altered mental status this admission 5. Acute on chronic anemia, status post blood transfusion 6. Acute kidney injury 7. Recent history of colitis and splenomegaly likely splenic infarct 8. History of anxiety 9. PTSD with history of self mutilation Plan: 1. Plan is for surgical aortic valve replacement with OnX mechanical valve by Dr. Camacho Sunday02/18/[address] Camacho. 2. Continue antibiotics as directed by infectious disease, monitor blood cultures, blood cultures drawn 02/11/2022 remain negative 3. Hematology consulted 4. Continue to follow chest x-ray, labs. 5. Continue supportive care 6. Continue preoperative teaching with patient/parents 7. Management of other comorbidities per internal medicine, cardiology, Gen. surgery
[2022-02-16 16:16] LABS: Reticulocyte % 1.2 % (0.5-2.0)
[2022-02-16 16:21] LABS: INR 1.2 (<1.2); Partial Thromboplastin Time 29.5 sec (22.0-30.0); Prothrombin Time 12.3 sec (9.0-12.0)
[2022-02-16 16:27] LABS: Uric Acid 5.4 mg/dL (3.7-7.4)
--- NOTE | 2022-02-16 17:37 | P.PN ---
Subjective Progress Note Date: 02/15/22 Principal diagnosis: Gram-negative bacteremia and aortic valve endocarditis Patient is a 36 year female presenting to the hospital with acute respiratory failure in this patient to have evidence of gram-negative bacteremia and there was concern for vegetation on the aortic valve on today's evaluation that is 02/15/2022, , The patient did have a low-grade fever 100F, the patient is breathing comfortably on room air, the patient denies having any chest pain or shortness of breath, the patient did have minimal cough no nausea vomiting no abdominal pain patient complaining of diarrhea Objective - Vital Signs Vital signs: Vital Signs Temp 98.2 F 02/15/22 08:00 Pulse 95 02/15/22 08:00 Resp 20 02/15/22 08:00 BP 136/65 02/15/22 08:00 Pulse Ox 95 02/15/22 04:00 FiO2 40 02/11/22 10:45 Intake & Output 02/14/22 02/15/22 02/15/22 18:59 06:59 18:59 Intake Total 1240 2420 Output Total 6 1452 Balance 1234 968 Weight 77.8 kg Intake: IV 440 170 Cefepime 2 gm In Sodium 200 100 Chloride 0.9% 100 ml @ 25 mls/hr IVPB Q8HR [facility] Rx# :[id number] Sodium Chloride 0.9% 1, 240 70 000 ml @ 20 mls/hr IV . Q24H [facility] Rx#:[id number] Oral 800 2250 Output: Urine 1200 Stool 6 252 Other: Voiding Method Indwelling Catheter Bedside Commode Bedside Commode # Voids 3 1 # Bowel Movements 1 - Exam GENERAL DESCRIPTION: Middle-aged female lying in bed in no distress RESPIRATORY SYSTEM: Unlabored breathing , decreased breath sounds at bases HEART: S1 S2 regular rate and rhythm , ABDOMEN: Soft , no tenderness EXTREMITIES: No edema feet - Labs CBC & Chem 7: 02/16/22 07:36 02/16/22 07:36 Labs: Abnormal Lab Results - Last 24 Hours (Table) 02/15/22 02/15/22 Range/Units 07:54 08:04 WBC 2.9 L (3.8-10.6) k/uL RBC 3.53 L (3.80-5.40) m/uL Hgb 8.3 L (11.4-16.0) gm/dL Hct 26.6 L (34.0-46.0) % MCV 75.3 L (80.0-100.0) fL MCH 23.5 L (25.0-35.0) pg RDW 20.6 H (11.5-15.5) % Plt Count 59 L (150-450) k/uL Potassium 2.9 L (3.5-5.1) mmol/L Glucose 121 H (74-99) mg/dL Calcium 7.4 L (8.4-10.2) mg/dL Magnesium 1.4 L (1.6-2.3) mg/dL Total Protein 5.6 L (6.3-8.2) g/dL Albumin 2.3 L (3.5-5.0) g/dL Microbiology - Last 24 Hours (Table) 02/11/22 12:23 Blood Culture - Preliminary Blood No Growth after 72 hours 02/11/22 12:12 Blood Culture - Preliminary Blood No Growth after 72 hours 02/09/22 10:13 Blood Culture - Preliminary Blood No Growth after 120 hours Assessment and Plan (1) Sepsis Current Visit: Yes Status: Acute Code(s): A41.9 - SEPSIS, UNSPECIFIED ORGANISM SNOMED Code(s): 81441633 Plan: 1patient presented to hospital with sepsis in this patient did have a fever tachycardia tachypnea with evidence of vegetation on aortic wall likely secondary to endocarditis, blood culture has been finalized and Serratia from her repeat blood culture had been negative as 2patient repeat blood culture has been negative 3- patient to continue with cefepime and monitor clinical course closely Time with Patient: Less than 30
--- NOTE | 2022-02-16 17:39 | P.PN ---
Subjective Progress Note Date: 02/16/22 Principal diagnosis: Gram-negative bacteremia and aortic valve endocarditis Patient is a 36 year female presenting to the hospital with acute respiratory failure in this patient to have evidence of gram-negative bacteremia and there was concern for vegetation on the aortic valve , patient did have extension of the infected tooth and colonoscopy as a part of preparation for the aortic valve surgery on 02/18/2022 on today's evaluation that is 02/16/2022, , The patient remains to be afebrile, the patient is breathing comfortably on room air, the patient denies having any chest pain or shortness of breath, the patient did have minimal cough no nausea vomiting no abdominal pain patient is still complaining of diarrhea, no blood or mucus in the stool Objective - Vital Signs Vital signs: Vital Signs Temp 99.2 F 02/16/22 11:35 Pulse 92 02/16/22 11:35 Resp 20 02/16/22 11:35 BP 136/63 02/16/22 11:35 Pulse Ox 96 02/16/22 11:35 FiO2 21 02/15/22 21:10 Intake & Output 02/15/22 02/16/22 02/16/22 18:59 06:59 18:59 Intake Total 200 560 75 Output Total 9 1025 Balance 191 -465 75 Weight 73.6 kg 73.6 kg Intake: IV 200 60 Sodium Chloride 0.9% 1, 60 000 ml @ 20 mls/hr IV . Q24H [facility] Rx#:[id number] Intake, IV Titration 260 Amount Cefepime 2 gm In Sodium 100 Chloride 0.9% 100 ml @ 25 mls/hr IVPB Q8HR [facility] Rx# :[id number] Sodium Chloride 0.9% 1, 160 000 ml @ 20 mls/hr IV . Q24H [facility] Rx#:[id number] Oral 240 75 Output: Urine 1025 Stool 4 Estimated Blood Loss 5 Other: Voiding Method Bedside Commode Bedside Commode # Voids 4 1 - Exam GENERAL DESCRIPTION: Middle-aged female lying in bed in no distress RESPIRATORY SYSTEM: Unlabored breathing , decreased breath sounds at bases HEART: S1 S2 regular rate and rhythm , ABDOMEN: Soft , no tenderness EXTREMITIES: No edema feet - Labs CBC & Chem 7: 02/16/22 07:36 02/16/22 07:36 Labs: Abnormal Lab Results - Last 24 Hours (Table) 02/15/22 02/16/22 02/16/22 Range/Units 08:04 07:36 07:36 WBC 2.7 L (3.8-10.6) k/uL RBC 3.58 L (3.80-5.40) m/uL Hgb 8.6 L (11.4-16.0) gm/dL Hct 27.5 L (34.0-46.0) % MCV 76.6 L (80.0-100.0) fL MCH 24.0 L (25.0-35.0) pg RDW 20.7 H (11.5-15.5) % Plt Count 60 L (150-450) k/uL Lymphocytes # 0.3 L (1.0-4.8) k/uL Chloride 109 H (98-107) mmol/L Glucose 117 H (74-99) mg/dL Calcium 7.5 L (8.4-10.2) mg/dL HDL Cholesterol 18.10 L (40.00-60.00) mg/dL Microbiology - Last 24 Hours (Table) 02/11/22 12:23 Blood Culture - Preliminary Blood No Growth after 96 hours 02/11/22 12:12 Blood Culture - Preliminary Blood No Growth after 96 hours 02/09/22 10:13 Blood Culture - Final Blood No Growth after 144 hours Assessment and Plan (1) Sepsis Current Visit: Yes Status: Acute Code(s): A41.9 - SEPSIS, UNSPECIFIED ORGANISM SNOMED Code(s): 83665519 Plan: 1patient presented to hospital with sepsis in this patient did have a fever ta chycardia tachypnea with evidence of vegetation on aortic wall likely secondary to endocarditis, blood culture has been finalized and Serratia from her repeat blood culture had been negative as 2patient repeat blood culture has been negative 3- patient to continue with cefepime with a plan for at least 6 weeks of IV anybody therapy 4-diarrhea patient has been encouraged to take the Questran and to increase her yogurt intake Time with Patient: Less than 30
[2022-02-16 19:52] LABS: Chol/HDL Ratio 3.46 Ratio
[2022-02-16] MEDS: MUPIROCIN 2% OINT 22 GM TUBE NASAL SCH (20:50)
[2022-02-16 23:04] LABS: Protein, Total 5.9 g/dL (6.2-8.2)
--- NOTE | 2022-02-16 23:16 | P.PN ---
Subjective This is a pleasant 56 years old female with past medical history of anxiety, PTSD, presents with altered mental status. She is a patient of Dr. Vizcarra. Patient was admitted in the ICU from the emergency room, patient could not provide information which were obtained from medical records and staff. per ems pt was recently at [facility] for a blood infection. pt's last known well was last night at 10:30pm. pt found by family this evening altered. Patient was intubated in the emergency room Patient had a fever of 103 on admission, she is tachypneic 29-31, blood pressure 107/53 Labs reviewed on admission, WBC 8.7, low hemoglobin 6.9, low platelet 120, with thrombocytopenia which is mild ESR is elevated at 90, CRP elevated 8.9 PH normal 7.4, pCO2 normal at 37 INR 1.2 Sodium 132, potassium 3.2, creatinine 1.0. Liver enzymes are normal as well as bilirubin. Troponin is elevated at 0.37. ProBNP is elevated to 38,000 Urinalysis showing 3+ protein, large blood, RBC 127, WBC 27. Urine test is negative. Urine drug screen is positive for opioids EKG showing sinus tachycardia at [address]-T changes Chest x-ray: Acute pulmonary edema Computed tomography scan of the head and neck: Normal cervical spine with no fracture and normal CT of the brain by radiologist In the emergency room she received IV fluids with normal saline, vancomycin and ceftriaxone and ibuprofen and IV Tylenol, Dilaudid and lorazepam and succi nylcholine 02/10/2022 Patient is a pleasant 36 years old female was admitted with AMS and acute pul monary edema, she got intubated on admission and entered closely in the ICU with pulmonary/critical care team. Echocardiogram showed evidence of regurgitation on the aortic valve, which is confirmatory with WADE showed severe aortic regurgitation. Patient's risk factors with subacute bacterial endocarditis with sepsis secondary with Serratia marcescens and blood culture, a patient currently kept o n antibiotics with cefepime. IV vancomycin discontinued. She is also gentle hydration Today several consultants were on the case including pulmonary, cardiology, cardiothoracic surgery infectious disease with recommendation to transfer patient to tertiary care center I discussed the case with MICU fellow at [facility] in [place] Dr. Valladares and I discussed the case with her and she currently accepted the patient depending bed availability. 02/11/2022 Patient remains critically ill in the intensive care unit, she still intubated and on mechanical ventilation. Pulmonary/critical care to follow closely and help with vent management. She remains on broad-spectrum antibiotics of cefepime for positive blood culture with Serratia for her endocarditis I discussed the case with her report MICU team yesterday and they Accepted the patient, pending bed availability. Patient is followed closely by several consultants including cardiology, cardiothoracic and surgery teams as well as infectious disease. And WADE are noted. 02/12/2022 Patient got extubated and currently her respiratory status is stable and at baseline or close to baseline she is not tachypneic or hypoxic. This morning she was still tired and very sleepy and she could not provide information however she started waking up throughout the day and she is alert awake and oriented. Repeat chest x-ray showing clearance of pulmonary edema but there is development of right lower lobe infiltrate. Rest of vitals and labs are stable. She has low-grade temperature of 99.8 today. She is currently on cefepime. I discussed the case again with [facility] at her report, they informed me her transfer was canceled because [facility] has reached its full capacity. On reviewing this with the staff patient may not needed to be transferred and her aortic valve regurgitation be managed in this facility. However we will follow up with pulmonary/critical care team and surgery teams. 02/13/2022 Patient today is fully awake and oriented, she looks a pleasant and calm, she denies any specific symptoms to me. She looks mildly tired and lethargic. However her mentation is normal. She denies chest pain or dyspnea. No abdominal pain or vomiting or diarrhea. No urinary complaints. No headache or weakness or numbness. No dizziness. She is hemodynamically stable. Labs look stable. She's continued on IV cefepime. Repeat blood culture is negative. Cardiothoracic surgery team recommended aortic valve repair during this admission and colonoscopy to be done prior to the procedure however a decline in the procedure We will follow up with the consult recommendation 02/14/2022 Patient today awake and alert, she did not complain of from any specific complaint to me, she has insight into [facility] and she has several questions ANSWERED to her satisfaction, most of them were around colonoscopy and I'll exp pamela to her extensively. It looks like later on patient evaluated by GI team for clearance prior to expected cardiothoracic surgery to replace the aortic valve. And per GI team patient is going for colonoscopy tomorrow morning. Patient denies chest pain or dyspnea. No abdominal pain with she still have some diarrhea. Other than that she remains on cefepime as per ID team. vitals are reviewed s table. 02/15/2022 Patient remains in the ICU, fully awake and oriented, calm and not in distress. Vitals and labs look stable. Reviewed in details Abdomen discussion with the patient looks like she is agreeable to colonoscopy. Also she told me about the need to take her to without and that she is thinking about it and that she is going to discussed with the surgeon. Cardiothoracic surgery team on the case and the planned for aortic valve replacement given the damage caused by endocarditis. Repeat blood culture are negative so far. The patient remains on IV cefepime per ID team Colonoscopy results show normal colon per report 02/16/2022 Patient removed to the select unit, currently she is awake alert looks comfortable and pleasant and she is at room air, denies any specific symptoms, no chest pain, no abdominal pain, no dyspnea. No headache or weakness or numbness. And vitals are stable. She was happy that her tooth was extracted and she was put to sleep so she could not feel it. Patient kept now on IV antibiotic with cefepime and the recommendation of ID team, she will need a prolonged course of IV antibiotics. Cardiothoracic surgery team are planning for aortic valve replacement, with further workup is in progress Objective - Vital Signs Vital signs: Vital Signs Temp 99.2 F 02/16/22 08:00 Pulse 101 H 02/16/22 08:00 Resp 20 02/16/22 08:00 BP 142/71 02/16/22 08:00 Pulse Ox 97 02/16/22 08:00 FiO2 21 02/15/22 21:10 Intake & Output 02/15/22 02/16/22 02/16/22 18:59 06:59 18:59 Intake Total 200 560 75 Output Total 9 1025 Balance 191 -465 75 Weight 73.6 kg Intake: IV 200 60 Sodium Chloride 0.9% 1, 60 000 ml @ 20 mls/hr IV . Q24H [facility] Rx#:[id number] Intake, IV Titration 260 Amount Cefepime 2 gm In Sodium 100 Chloride 0.9% 100 ml @ 25 mls/hr IVPB Q8HR [facility] Rx# :[id number] Sodium Chloride 0.9% 1, 160 000 ml @ 20 mls/hr IV . Q24H [facility] Rx#:[id number] Oral 240 75 Output: Urine 1025 Stool 4 Estimated Blood Loss 5 Other: Voiding Method Bedside Commode Bedside Commode # Voids 4 1 - Exam -GENERAL: The patient is awake and alert but tired HEENT: Pupils are round and equally reacting to light. EOMI. No scleral icterus. No conjunctival pallor. Normocephalic, atraumatic. No pharyngeal erythema. No thyromegaly. -CARDIOVASCULAR: S1 and S2 present. Systolic murmurs, rubs, or gallops. PULMONARY: Chest is clear to auscultation, no wheezing or crackles. ABDOMEN: Soft, nontender, nondistended, normoactive bowel sounds. No palpable organomegaly. MUSCULOSKELETAL: No joint swelling or deformity. EXTREMITIES: No cyanosis, clubbing, or pedal edema. NEUROLOGICAL: Gross neurological examination did not reveal any focal deficits. SKIN: No rashes. no petechiae. - Labs CBC & Chem 7: 02/16/22 07:36 02/16/22 07:36 Labs: Abnormal Lab Results - Last 24 Hours (Table) 02/15/22 02/16/22 02/16/22 Range/Units 08:04 07:36 07:36 WBC 2.7 L (3.8-10.6) k/uL RBC 3.58 L (3.80-5.40) m/uL Hgb 8.6 L (11.4-16.0) gm/dL Hct 27.5 L (34.0-46.0) % MCV 76.6 L (80.0-100.0) fL MCH 24.0 L (25.0-35.0) pg RDW 20.7 H (11.5-15.5) % Plt Count 60 L (150-450) k/uL Lymphocytes # 0.3 L (1.0-4.8) k/uL Chloride 109 H (98-107) mmol/L Glucose 117 H (74-99) mg/dL Calcium 7.5 L (8.4-10.2) mg/dL HDL Cholesterol 18.10 L (40.00-60.00) mg/dL Microbiology - Last 24 Hours (Table) 02/11/22 12:23 Blood Culture - Preliminary Blood No Growth after 96 hours 02/11/22 12:12 Blood Culture - Preliminary Blood No Growth after 96 hours 02/09/22 10:13 Blood Culture - Final Blood No Growth after 144 hours Assessment and Plan Assessment: Subacute bacterial endocarditis Severe aortic regurgitation secondary to above Sepsis with fever and tachypnea, resolved Acute hypoxic respiratory failure requiring intubation and mechanical ventilation, she got extubated on 02/28, resolved Metabolic encephalopathy Acute pulmonary edema, could be acute CHF versus RDS Severe anemia, microcytic hyperchromic requiring blood transfusion 4 Elevated troponin Plan: This is a pleasant 56 years old female who presents with AMS, on mechanical ventilation, anemia Continue with antibiotics as per ID team, currently on cefepime Keep follow-up and repeat blood culture, negative so far Cardiothoracic surgery team of the case, and the planned for aortic valve replacement Several consultants on the case including infectious disease, pulmonary/critical care, cardiology, cardiothoracic surgery IV fluids were stopped labs and medication were reviewed.. Continue same treatment. Continue with symptomatic treatment. Resume home medication. Monitor lytes and vitals. DVT and GI prophylaxis. Further recommendations as per clinical course of the patient DVT prophylaxis: She received aspirin and heparin today GI Prophylaxis: Ppi Prognosis is guarded
[2022-02-17] MEDS: ACETAMINOPHEN TAB 500 MG TAB PO PRN ×3 (04:03→21:10)
[2022-02-17] MEDS ORDERED: METOPROLOL TARTRATE 12.5 MG TAB PO ONE (06:00)
--- NOTE | 2022-02-17 06:37 | XR ---
EXAMINATION TYPE: XR chest 2V DATE OF EXAM: 02/17/2022 COMPARISON: Chest x-ray 5 days earlier HISTORY: Preopen cardiac surgery. TECHNIQUE: Frontal and lateral views of the chest are obtained. FINDINGS: There is new small left pleural effusion and associated left basilar opacity favoring atel ectasis. Improved aeration right lung base. The cardiac silhouette size is stable and upper limits o f normal. The osseous structures are intact. There is new Round density right supraclavicular reg ion on frontal view presumed external button. IMPRESSION: New small left pleural effusion and associated left basilar atelectasis.
[2022-02-17] MEDS: SODIUM CHLORIDE 0.9% 1,000 ML IV SCH (06:41)
[2022-02-17 08:02] LABS: Albumin 2.3 g/dL (3.5-5.0); Calcium 7.5 mg/dL (8.4-10.2); Magnesium 1.7 mg/dL (1.6-2.3); Potassium 4.2 mmol/L (3.5-5.1); Total Bilirubin 0.6 mg/dL (0.2-1.3); Total Protein 5.7 g/dL (6.3-8.2)
[2022-02-17] MEDS: PANTOPRAZOLE 40 MG/10 ML VIAL IVP SCH (08:42)
[2022-02-17] MEDS: MUPIROCIN 2% OINT 22 GM TUBE NASAL SCH ×2 (08:43→21:12)
[2022-02-17] MEDS: LOPERAMIDE 2 MG CAP PO SCH ×2 (08:43→21:11)
[2022-02-17] MEDS: CEFEPIME 2 GM in SODIUM CHLORIDE 0.9% 100 ML IVPB SCH ×2 (08:44→16:44)
[2022-02-17 08:46] LABS: Anisocytosis Moderate; Basophils % (A) 0 %; Eosinophils % (A) 1 %; HCT 26.4 % (34.0-46.0); HGB 8.1 gm/dL (11.4-16.0); Hypochromasia Marked; Lymphocytes # (A) 0.3 k/uL (1.0-4.8); Lymphocytes % (A) 9 %; MCH 23.6 pg (25.0-35.0); MCHC 30.6 g/dL (31.0-37.0); MCV 77.2 fL (80.0-100.0); Mean Platelet Volume 8.5; Microcytosis Moderate; Monocytes # (A) 0.2 k/uL (0-1.0); Monocytes % (A) 7 %; Neutrophils # (A) 2.8 k/uL (1.3-7.7); Neutrophils % (A) 82 %; Poikilocytosis Slight; RBC 3.42 m/uL (3.80-5.40); RDW 20.7 % (11.5-15.5); WBC 3.4 k/uL (3.8-10.6)
[2022-02-17 08:56] LABS: Platelet Count 90 k/uL (150-450)
[2022-02-17] MEDS: MAGNESIUM SULFATE-D5W PMX 1 GM in DEXTROSE/WATER 1 100ML.BAG IVPB SCH ×2 (08:56→11:03)
[2022-02-17] MEDS: POTASSIUM CHLORIDE ER 20 MEQ TAB.ER PO SCH (08:56)
[2022-02-17] MEDS: CHOLESTYRAMINE (WITH SUGAR) 4 GM PACKET PO SCH ×2 (08:57→16:45)
--- NOTE | 2022-02-17 10:30 | P.PN ---
Subjective Progress Note Date: 02/17/22 Principal diagnosis: Aortic valve endocarditis with severe aortic valve regurgitation, Serratia marcescens bacteremia, sepsis, acute hypoxic respiratory failure requiring mechanical ventilation, altered mental status, acute anemia, acute kidney injury. Previous history of bacteremia with blood cultures from [facility] positive for Serratia marcescens, recent history of colitis and splenomegaly likely splenic infarct, anxiety, PTSD with history of self mutilation. The patient was seen and examined at her bedside today 02/17/2022 on the cardiac stepdown unit. She is tentatively scheduled for an aortic valve replacement with an On-X mechanical valve scheduled for tomorrow 02/18/2022 to be performed by Dr. Tomas Camacho. Preoperative teaching has been reinforced with the patient and her questions were answered to the best of my ability. A 5 m walk test was completed with the patient this morning and she tolerated the walk test well with time 1: 2.00 seconds, time 2: 2.32 seconds and time 3: 2.25 seconds. An STS risk score has been calculated in a discussed with the patient. Laboratory results this morning show a WBC count of 3.4, hemoglobin 8.1, hematocrit 26.4, platelets 90, sodium 140, potassium 4.2, chloride 110, BUN 14, creatinine 0.95, calcium 7.5 and magnesium 1.7. Hematology has been consulted for her leukopenia. The patient denies any complaints of pain, shortness of breath or nausea at this time although continues to complain of bouts of diarrhea. Her T- max temperature in the last 24 hours is 100.9 degrees Fahrenheit. She remains on cefepime 2 g IV piggyback every 8 hours for antibiotic coverage managed by infectious disease. Oxygen saturation are 95% on room air and she is achieving 2000 mL on her incentive spirometry with encouragement. Remote telemetry showing normal sinus rhythm heart rate 87 BPM. Objective - Vital Signs Vital signs: Vital Signs Temp 98.6 F 02/17/22 08:00 Pulse 92 02/17/22 08:00 Resp 18 02/17/22 08:00 BP 125/60 02/17/22 08:00 Pulse Ox 95 02/17/22 08:00 FiO2 21 02/15/22 21:10 Intake & Output 02/16/22 02/17/22 02/17/22 18:59 06:59 18:59 Intake Total 255 690 Output Total 1700 Balance 255 -1010 Weight 73.6 kg 73.6 kg Intake: IV 180 Cefepime 2 gm In Sodium 100 Chloride 0.9% 100 ml @ 25 mls/hr IVPB Q8HR [facility] Rx# :[id number] Sodium Chloride 0.9% 1, 80 000 ml @ 20 mls/hr IV . Q24H [facility] Rx#:[id number] Intake, IV Titration 100 Amount Cefepime 2 gm In Sodium 100 Chloride 0.9% 100 ml @ 25 mls/hr IVPB Q8HR [facility] Rx# :[id number] Oral 75 590 Output: Urine 1700 - Exam CONSTITUTIONAL: Appears comfortable, cooperative, no apparent acute distress RESPIRATORY: Lungs sounds diminished bilaterally. Respirations are symmetrical, nonlabored. Currently on room air with oxygen saturation 95%, achieving 2000 L on her incentive spirometry with encouragement. Strong loose nonproductive cough. CARDIOVASCULAR: S1, S2 present, systolic murmur present, heard best in the right sternal border. Regular rate and rhythm, normal sinus rhythm on telemetry heart rate 87 bpm. Palpable peripheral pulses bilaterally. No edema present. No calf pain or tenderness noted. GASTROINTESTINAL: Abdomen soft, nontender, nondistended. Active bowel sounds present 4 quadrants. Tolerating diet. She continues to have diarrhea. GENITOURINARY: Continues to void. INTEGUMENTARY: Skin is warm and dry, no clubbing or cyanosis. Healed scars to her bilateral lower extremities from prior self mutilating. NEUROLOGIC: Cranial nerves II through XII intact. No focal deficits. MUSKULOSKELETAL: Able to move all extremities, strength equal bilaterally, gait normal. PSYCHIATRIC: Alert and oriented to person place and time, appropriate affect although very nervous, intact judgment and insight. - Allied health notes Allied health notes reviewed: nursing - Labs CBC & Chem 7: 02/17/22 06:59 02/17/22 06:59 Labs: Abnormal Lab Results - Last 24 Hours (Table) 02/16/22 02/16/22 02/16/22 Range/Units 07:36 15:30 15:30 WBC (3.8-10.6) k/uL RBC (3.80-5.40) m/uL Hgb (11.4-16.0) gm/dL Hct (34.0-46.0) % MCV (80.0-100.0) fL MCH (25.0-35.0) pg MCHC (31.0-37.0) g/dL RDW (11.5-15.5) % Plt Count (150-450) k/uL Lymphocytes # (1.0-4.8) k/uL PT 12.3 H (9.0-12.0) sec INR 1.2 H (<1.2) D-Dimer 1.29 H (<0.60) mg/L FEU Chloride (98-107) mmol/L Glucose (74-99) mg/dL Calcium (8.4-10.2) mg/dL Total Protein (6.3-8.2) g/dL Total Protein (PEP) (6.2-8.2) g/dL Albumin (3.5-5.0) g/dL HDL Cholesterol 19.90 L (40.00-60.00) mg/dL IgG (700.0-1600.0) mg/dL IgM (40.0-280.0) mg/dL Rheumatoid Factor 16 H (0-15) IU/mL JAMES Screen (NEGATIVE) 02/16/22 02/16/22 02/17/22 Range/Units 15:30 15:30 06:59 WBC 3.4 L (3.8-10.6) k/uL RBC 3.42 L (3.80-5.40) m/uL Hgb 8.1 L (11.4-16.0) gm/dL Hct 26.4 L (34.0-46.0) % MCV 77.2 L (80.0-100.0) fL MCH 23.6 L (25.0-35.0) pg MCHC 30.6 L (31.0-37.0) g/dL RDW 20.7 H (11.5-15.5) % Plt Count 90 L (150-450) k/uL Lymphocytes # 0.3 L (1.0-4.8) k/uL PT (9.0-12.0) sec INR (<1.2) D-Dimer (<0.60) mg/L FEU Chloride (98-107) mmol/L Glucose (74-99) mg/dL Calcium (8.4-10.2) mg/dL Total Protein (6.3-8.2) g/dL Total Protein (PEP) 5.9 L (6.2-8.2) g/dL Albumin (3.5-5.0) g/dL HDL Cholesterol (40.00-60.00) mg/dL IgG 1874.0 H (700.0-1600.0) mg/dL IgM 313.0 H (40.0-280.0) mg/dL Rheumatoid Factor (0-15) IU/mL JAMES Screen POSITIVE A (NEGATIVE) 02/17/22 Range/Units 06:59 WBC (3.8-10.6) k/uL RBC (3.80-5.40) m/uL Hgb (11.4-16.0) gm/dL Hct (34.0-46.0) % MCV (80.0-100.0) fL MCH (25.0-35.0) pg MCHC (31.0-37.0) g/dL RDW (11.5-15.5) % Plt Count (150-450) k/uL Lymphocytes # (1.0-4.8) k/uL PT (9.0-12.0) sec INR (<1.2) D-Dimer (<0.60) mg/L FEU Chloride 110 H (98-107) mmol/L Glucose 114 H (74-99) mg/dL Calcium 7.5 L (8.4-10.2) mg/dL Total Protein 5.7 L (6.3-8.2) g/dL Total Protein (PEP) (6.2-8.2) g/dL Albumin 2.3 L (3.5-5.0) g/dL HDL Cholesterol (40.00-60.00) mg/dL IgG (700.0-1600.0) mg/dL IgM (40.0-280.0) mg/dL Rheumatoid Factor (0-15) IU/mL JAMES Screen (NEGATIVE) Microbiology - Last 24 Hours (Table) 02/16/22 15:33 Nasal Screen MRSA/MSSA - Preliminary Nasal Swab 02/11/22 12:23 Blood Culture - Preliminary Blood No Growth after 120 hours 02/11/22 12:12 Blood Culture - Preliminary Blood No Growth after 120 hours - Imaging and Cardiology Chest x-ray: report reviewed, image reviewed Assessment and Plan Assessment: 1. Aortic valve endocarditis with severe aortic valve regurgitation 2. Serratia bacteremia, sepsis 3. Acute hypoxic respiratory failure requiring mechanical ventilation 4. Altered mental status this admission, resolved 5. Acute on chronic anemia, status post blood transfusion hemoglobin 8.1 today 02/17/2022 6. Acute kidney injury, resolved BUN 14 and creatinine 0.95 today 7. Recent history of colitis and splenomegaly likely splenic infarct 8. History of anxiety 9. PTSD with history of self mutilation Plan: 1. Plan is for surgical aortic valve replacement with OnX mechanical valve by Dr. Tomas Camacho Sunday02/18/22. Reinforced with the patient the importance of anticoagulation with Coumadin postoperative aortic valve replacement. The patient remains agreeable with the above-mentioned plan. 2. Continue antibiotics as directed by infectious disease, continue to monitor blood cultures, blood cultures drawn 02/11/2022 remain negative. 3. Hematology consult pending. WBC count 3.5 today, hemoglobin 8.1. 4. Continue to follow chest x-ray, and labs. Magnesium replaced per protocol. 5. Continue supportive care. 6. Continue preoperative teaching with the patient. 7. Continue to encourage use of her incentive spirometry 10 times every hour while awake. 8. A 5 m walk test was completed with the patient today. Time 1: 2.00 seconds, time 2: 2.32 seconds and time 3: 2.25 seconds. 9. An STS risk score has been calculated in a discussed with the patient. 10. Management of other comorbidities per internal medicine, cardiology, general surgery and hematology. Time with Patient: Greater than 30
--- NOTE | 2022-02-17 11:44 | P.PN ---
Subjective HISTORY OF PRESENT ILLNESS: PROGRESS NOTE The patient is a 36-year-old female who presented with progressive dyspnea, change in mental status requiring mechanical ventilation. She was febrile and had positive blood cultures. She was recently discharged from [facility] with diarrhea and positive blood cultures as well with change in mental status. Her echocardiogram performed yesterday showed possible aortic valve vegetations that was confirmed on the transesophageal echocardiogram with severe aortic regurgitation and a tricuspid aortic valve. She had moderate mitral regurgitation. Her echocardiogram at [facility] on January 25 showed a normal systolic function with trace aortic regurgitation and no mention of vegetations. She had at [facility] evidence of splenic infarct and colitis as well has severe anemia. She continues to be intubated, tachycardic at times. Her blood pressure is stable. The color of her urine is better. There is no evidence of malignant arrhythmia. She continues to be febrile. Her urinary output is good. Her blood cultures were positive for Serratia Marcescens which is the same bacteria noted at [facility]. She was seen by the cardiovascular team yesterday. Her computed tomography scan of the abdomen showed moderately severe hepatosplenomegaly was bilateral enlargement of the kidneys. She had cardiomegaly with pleural effusion and basilar pulmonary infiltrate atelectasis. No suggestion of colitis was noted. February 11: The patient remains intubated and sedated, in sinus mechanism, hemodynamically stable on no vasopressors. She has good urinary output. There is no evidence of malignant arrhythmia. Her blood pressure were positive for Serratia marcescens. She is afebrile. Her echocardiogram showed severe aortic regurgi tation with evidence of vegetation on a tricuspid aortic valve and question of ulceration noted. Her systolic function was 50-55%. On the echocardiogram performed at [facility] recently there is no documentation of the vegetation and she had trace AI. The patient is being evaluated to be transferred to tertiary care hospital for further treatment. February 12: The patient is extubated, hemodynamically stable, denies any chest discomfort, dizziness or palpitations. She continues to be in sinus mechanism. She had no evidence of atrial arrhythmia. She cannot recall the episode prior to admission. She denies any knowledge of valvular problem in the past. She denies any history of IV drug abuse. She remains afebrile. Her urinary output has been stable. She received one dose of IV Lasix yesterday. Repeat blood culture from February 09 showed no growth after 48 hours. February 13: Patient seen and examined. Patient extubated yesterday and currently on nasal cannula. Having diarrhea. She admits she is lactose intolerant. Does not have much of an appetite. Hemodynamically stable. Cardiothoracic surgery deferring surgery until blood cultures if cleared. Blood cultures from 02/11 no growth to date. 02/14 Patient seen and examined. Patient concerned about undergoing colonoscopy and multiple questions yesterday. Today she feels she would likely prefer a mechan ical valve and is more agreeable to colonoscopy. Discussed findings and recommendations. Patient denies any chest pain or pressure. Does have mild dyspnea with lying flat. 02/15 Patient seen and examined. Patient still having some dyspnea however overall fairly well controlled. Underwent prep for colonoscopy today. Patient having difficulty making decisions regarding plan of care with family. 02/16/2022 Patient is status post colonoscopy revealing normal colon without evidence of colitis or neoplasm. Patient is also status post tooth extraction yesterday. Patient denies any chest pain or pressure she denies shortness of breath. Patient has been up and bleeding in her room without difficulty. Vital signs are stable. 02/17 Patient seen and examined. Patient scheduled for surgery tomorrow. She denies any chest pain or shortness breath. PHYSICAL EXAM: VITAL SIGNS: Reviewed. GENERAL: Well-developed in no acute distress. NECK: Supple. No JVD or thyromegaly LUNGS: Respirations even and unlabored. Lungs essentially clear to auscultation bilaterally. HEART: Regular rate and rhythm. S1 and S2 heard. Systolic and diastolic murmur noted. EXTREMITIES: Normal range of motion. No clubbing or cyanosis. Peripheral pulses intact. No lower extremity edema ASSESSMENT: 1. 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 Colitis and spleen infarct by CAT scan at [facility] 3. Respiratory failure, resolved 4. Change in mental status prior to admission related to the sepsis 5. Anemia, most likely related to the infectious process, improved 6. Abnormal renal functions, resolved PLAN: Continue current cardiac medications Patient scheduled for surgery tomorrow. Continue supportive care. Objective - Vital Signs Vital signs: Vital Signs Temp 98.6 F 02/17/22 08:00 Pulse 92 02/17/22 08:00 Resp 18 02/17/22 08:00 BP 125/60 02/17/22 08:00 Pulse Ox 95 02/17/22 08:00 FiO2 21 02/15/22 21:10 Intake & Output 02/16/22 02/17/22 02/17/22 18:59 06:59 18:59 Intake Total 255 690 Output Total 1700 Balance 255 -1010 Weight 73.6 kg 73.6 kg Intake: IV 180 Cefepime 2 gm In Sodium 100 Chloride 0.9% 100 ml @ 25 mls/hr IVPB Q8HR [facility] Rx# :[id number] Sodium Chloride 0.9% 1, 80 000 ml @ 20 mls/hr IV . Q24H [facility] Rx#:[id number] Intake, IV Titration 100 Amount Cefepime 2 gm In Sodium 100 Chloride 0.9% 100 ml @ 25 mls/hr IVPB Q8HR [facility] Rx# :[id number] Oral 75 590 Output: Urine 1700 - Labs CBC & Chem 7: 02/17/22 06:59 02/17/22 06:59 Labs: Abnormal Lab Results - Last 24 Hours (Table) 02/16/22 02/16/22 02/16/22 Range/Units 07:36 15:30 15:30 WBC (3.8-10.6) k/uL RBC (3.80-5.40) m/uL Hgb (11.4-16.0) gm/dL Hct (34.0-46.0) % MCV (80.0-100.0) fL MCH (25.0-35.0) pg MCHC (31.0-37.0) g/dL RDW (11.5-15.5) % Plt Count (150-450) k/uL Lymphocytes # (1.0-4.8) k/uL PT 12.3 H (9.0-12.0) sec INR 1.2 H (<1.2) D-Dimer 1.29 H (<0.60) mg/L FEU Chloride (98-107) mmol/L Glucose (74-99) mg/dL Calcium (8.4-10.2) mg/dL Total Protein (6.3-8.2) g/dL Total Protein (PEP) (6.2-8.2) g/dL Albumin (3.5-5.0) g/dL HDL Cholesterol 19.90 L (40.00-60.00) mg/dL IgG (700.0-1600.0) mg/dL IgM (40.0-280.0) mg/dL Rheumatoid Factor 16 H (0-15) IU/mL JAMES Screen (NEGATIVE) 02/16/22 02/16/22 02/17/22 Range/Units 15:30 15:30 06:59 WBC 3.4 L (3.8-10.6) k/uL RBC 3.42 L (3.80-5.40) m/uL Hgb 8.1 L (11.4-16.0) gm/dL Hct 26.4 L (34.0-46.0) % MCV 77.2 L (80.0-100.0) fL MCH 23.6 L (25.0-35.0) pg MCHC 30.6 L (31.0-37.0) g/dL RDW 20.7 H (11.5-15.5) % Plt Count 90 L (150-450) k/uL Lymphocytes # 0.3 L (1.0-4.8) k/uL PT (9.0-12.0) sec INR (<1.2) D-Dimer (<0.60) mg/L FEU Chloride (98-107) mmol/L Glucose (74-99) mg/dL Calcium (8.4-10.2) mg/dL Total Protein (6.3-8.2) g/dL Total Protein (PEP) 5.9 L (6.2-8.2) g/dL Albumin (3.5-5.0) g/dL HDL Cholesterol (40.00-60.00) mg/dL IgG 1874.0 H (700.0-1600.0) mg/dL IgM 313.0 H (40.0-280.0) mg/dL Rheumatoid Factor (0-15) IU/mL JAMES Screen POSITIVE A (NEGATIVE) 02/17/22 Range/Units 06:59 WBC (3.8-10.6) k/uL RBC (3.80-5.40) m/uL Hgb (11.4-16.0) gm/dL Hct (34.0-46.0) % MCV (80.0-100.0) fL MCH (25.0-35.0) pg MCHC (31.0-37.0) g/dL RDW (11.5-15.5) % Plt Count (150-450) k/uL Lymphocytes # (1.0-4.8) k/uL PT (9.0-12.0) sec INR (<1.2) D-Dimer (<0.60) mg/L FEU Chloride 110 H (98-107) mmol/L Glucose 114 H (74-99) mg/dL Calcium 7.5 L (8.4-10.2) mg/dL Total Protein 5.7 L (6.3-8.2) g/dL Total Protein (PEP) (6.2-8.2) g/dL Albumin 2.3 L (3.5-5.0) g/dL HDL Cholesterol (40.00-60.00) mg/dL IgG (700.0-1600.0) mg/dL IgM (40.0-280.0) mg/dL Rheumatoid Factor (0-15) IU/mL JAMES Screen (NEGATIVE) Microbiology - Last 24 Hours (Table) 02/16/22 15:33 Nasal Screen MRSA/MSSA - Preliminary Nasal Swab 02/11/22 12:23 Blood Culture - Preliminary Blood No Growth after 120 hours 02/11/22 12:12 Blood Culture - Preliminary Blood No Growth after 120 hours
--- NOTE | 2022-02-17 14:43 | P.PN ---
Subjective Progress Note Date: 02/17/22 Principal diagnosis: Gram-negative bacteremia and aortic valve endocarditis Patient is a 36 year female presenting to the hospital with acute respiratory failure in this patient to have evidence of gram-negative bacteremia and there was concern for vegetation on the aortic valve , patient did have extension of the infected tooth and colonoscopy as a part of preparation for the aortic valve surgery on 02/18/2022 on today's evaluation that is 02/17/2022, , The patient denies any fever or chills, the patient is breathing comfortably on room air, the patient denies h aving any chest pain or shortness of breath, the patient did have minimal cough no nausea vomiting no abdominal pain and the patient diarrhea has significant improved Objective - Vital Signs Vital signs: Vital Signs Temp 98.6 F 02/17/22 08:00 Pulse 92 02/17/22 08:00 Resp 18 02/17/22 08:00 BP 125/60 02/17/22 08:00 Pulse Ox 95 02/17/22 08:00 FiO2 21 02/15/22 21:10 Intake & Output 02/16/22 02/17/22 02/17/22 18:59 06:59 18:59 Intake Total 255 690 Output Total 1700 Balance 255 -1010 Weight 73.6 kg 73.6 kg Intake: IV 180 Cefepime 2 gm In Sodium 100 Chloride 0.9% 100 ml @ 25 mls/hr IVPB Q8HR [facility] Rx# :[id number] Sodium Chloride 0.9% 1, 80 000 ml @ 20 mls/hr IV . Q24H [facility] Rx#:[id number] Intake, IV Titration 100 Amount Cefepime 2 gm In Sodium 100 Chloride 0.9% 100 ml @ 25 mls/hr IVPB Q8HR [facility] Rx# :[id number] Oral 75 590 Output: Urine 1700 - Exam GENERAL DESCRIPTION: Middle-aged female lying in bed in no distress RESPIRATORY SYSTEM: Unlabored breathing , decreased breath sounds at bases HEART: S1 S2 regular rate and rhythm , ABDOMEN: Soft , no tenderness EXTREMITIES: No edema feet - Labs CBC & Chem 7: 02/17/22 06:59 02/17/22 06:59 Labs: Abnormal Lab Results - Last 24 Hours (Table) 02/16/22 02/16/22 02/16/22 Range/Units 07:36 15:30 15:30 WBC (3.8-10.6) k/uL RBC (3.80-5.40) m/uL Hgb (11.4-16.0) gm/dL Hct (34.0-46.0) % MCV (80.0-100.0) fL MCH (25.0-35.0) pg MCHC (31.0-37.0) g/dL RDW (11.5-15.5) % Plt Count (150-450) k/uL Lymphocytes # (1.0-4.8) k/uL PT 12.3 H (9.0-12.0) sec INR 1.2 H (<1.2) D-Dimer 1.29 H (<0.60) mg/L FEU Chloride (98-107) mmol/L Glucose (74-99) mg/dL Calcium (8.4-10.2) mg/dL Total Protein (6.3-8.2) g/dL Total Protein (PEP) (6.2-8.2) g/dL Albumin (3.5-5.0) g/dL HDL Cholesterol 19.90 L (40.00-60.00) mg/dL IgG (700.0-1600.0) mg/dL IgM (40.0-280.0) mg/dL Rheumatoid Factor 16 H (0-15) IU/mL JAMES Screen (NEGATIVE) 02/16/22 02/16/22 02/17/22 Range/Units 15:30 15:30 06:59 WBC 3.4 L (3.8-10.6) k/uL RBC 3.42 L (3.80-5.40) m/uL Hgb 8.1 L (11.4-16.0) gm/dL Hct 26.4 L (34.0-46.0) % MCV 77.2 L (80.0-100.0) fL MCH 23.6 L (25.0-35.0) pg MCHC 30.6 L (31.0-37.0) g/dL RDW 20.7 H (11.5-15.5) % Plt Count 90 L (150-450) k/uL Lymphocytes # 0.3 L (1.0-4.8) k/uL PT (9.0-12.0) sec INR (<1.2) D-Dimer (<0.60) mg/L FEU Chloride (98-107) mmol/L Glucose (74-99) mg/dL Calcium (8.4-10.2) mg/dL Total Protein (6.3-8.2) g/dL Total Protein (PEP) 5.9 L (6.2-8.2) g/dL Albumin (3.5-5.0) g/dL HDL Cholesterol (40.00-60.00) mg/dL IgG 1874.0 H (700.0-1600.0) mg/dL IgM 313.0 H (40.0-280.0) mg/dL Rheumatoid Factor (0-15) IU/mL JAMES Screen POSITIVE A (NEGATIVE) 02/17/22 Range/Units 06:59 WBC (3.8-10.6) k/uL RBC (3.80-5.40) m/uL Hgb (11.4-16.0) gm/dL Hct (34.0-46.0) % MCV (80.0-100.0) fL MCH (25.0-35.0) pg MCHC (31.0-37.0) g/dL RDW (11.5-15.5) % Plt Count (150-450) k/uL Lymphocytes # (1.0-4.8) k/uL PT (9.0-12.0) sec INR (<1.2) D-Dimer (<0.60) mg/L FEU Chloride 110 H (98-107) mmol/L Glucose 114 H (74-99) mg/dL Calcium 7.5 L (8.4-10.2) mg/dL Total Protein 5.7 L (6.3-8.2) g/dL Total Protein (PEP) (6.2-8.2) g/dL Albumin 2.3 L (3.5-5.0) g/dL HDL Cholesterol (40.00-60.00) mg/dL IgG (700.0-1600.0) mg/dL IgM (40.0-280.0) mg/dL Rheumatoid Factor (0-15) IU/mL JAMES Screen (NEGATIVE) Microbiology - Last 24 Hours (Table) 02/16/22 15:33 Nasal Screen MRSA/MSSA - Preliminary Nasal Swab 02/11/22 12:23 Blood Culture - Preliminary Blood No Growth after 120 hours 02/11/22 12:12 Blood Culture - Preliminary Blood No Growth after 120 hours Assessment and Plan (1) Sepsis Current Visit: Yes Status: Acute Code(s): A41.9 - SEPSIS, UNSPECIFIED ORGANISM SNOMED Code(s): 29792485 Plan: 1patient presented to hospital with sepsis in this patient did have a fever tachycardia tachypnea with evidence of vegetation on aortic wall likely secondary to endocarditis, blood culture has been finalized and Serratia from her repeat blood culture had been negative as 2 patient to continue with cefepime with a plan for at least 6 weeks of IV antibiotic therapy, patient is scheduled for aortic valve surgery tomorrow 3the patient diarrhea has improved continue the [facility] as needed Time with Patient: Less than 30
--- NOTE | 2022-02-17 15:46 | P.CONS ---
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 We were asked to further evaluate for pancytopenia. She has had two prolonged hospital stays for sepsis and baceremia, now with endocarditis. In July of this time she unjured her lower back, which she was actively participating with PT, and working closely with her physicians, treatment included long duration od corticosteroids. In September of this year was the first time she ws able to have the COVID vaccination and september, october and november she recienved both vaccines and a booster. Last month she thought she ws coming down with a GI bug when she progresively got worse, to the point of severe weakness, incontinence and confusion. She was brought to [facility] and treated for bacteremia. She did receive IV Iron at that time. She was dicharged home but soon after returned by EMS to [facility] for worsening symptoms. Blood cultures on admission re-revealed Brandon marciscus apparently a jaison form of acquired infetction. Evaluation with echo revealed vegetation and picture of endocarditis was of concern. 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 She was admitted at [facility] through 01/28, blood cultures on on 01/24/22 grew 2/2 positive gram neg bacilli, she was treated with zosyn and discharged on flagyl and cipro. CT abdomen and pelvis revealed splenomegaly with possibe splenic infarcs. She was noted to have dilated cardiomyopathy during this time which was felt to be due to chronic iron deficiency. She did have hematology work-up as well inpatient at [place]. Review of Systems All systems: negative Constitutional: Reports as per HPI Past Medical History Past Medical History: No Reported History Additional Past Medical History / Comment(s): Sepsis ([facility]) bacterial sepsis January 2022. Back pain from an accident. anemia. 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 History of Any Multi-Drug Resistant Organisms: None Reported Past Surgical History: Unable to Obtain Additional Past Surgical History / Comment(s): wisdom tooth extraction, dental surgeries Past Anesthesia/Blood Transfusion Reactions: No Reported Reaction Smoking Status: Never smoker - Past Family History Father Family Medical History: No Reported History Mother Family Medical History: No Reported History Additional Family Medical History / Comment(s): Mother has history of bipolar Medications and Allergies Home Medications Medication Instructions Recorded Confirmed Type Potassium Chloride ER [K-Dur 20] See Taper PO DAILY 02/09/22 02/09/22 History Allergies Allergy/AdvReac Type Severity Reaction Status Date / Time lactose AdvReac Nausea & Verified 02/09/22 08:45 Vomiting & Diarrhea Sulfa (Sulfonamide AdvReac Nausea & Verified 02/09/22 08:44 Antibiotics) Vomiting & Diarrhea Physical Exam Vitals: Vital Signs Temp Pulse Pulse Resp BP Pulse Ox 02/17/22 12:00 98.4 F 98 91 18 111/59 99 02/17/22 08:00 98.6 F 98 91 18 125/60 95 02/17/22 07:50 97 02/17/22 04:00 100.9 F H 100 18 129/65 96 02/17/22 01:51 18 02/16/22 23:47 98.4 F 98 18 135/69 94 L 02/16/22 20:00 98.7 F 101 H 18 123/68 97 02/16/22 16:30 99 F 104 H 20 122/73 95 Intake and Output 02/16/22 02/17/22 02/17/22 22:59 06:59 14:59 Intake Total 460 230 Output Total 375 1325 Balance 85 -1095 Intake: Intake, IV Titration 100 Amount Cefepime 2 gm In Sodium 100 Chloride 0.9% 100 ml @ 25 mls/hr IVPB Q8HR [facility] Rx# :[id number] Oral 360 230 Output: Urine 375 1325 Other: Weight 73.6 kg - Constitutional General appearance: cooperative, no acute distress - EENT Eyes: EOMI, PERRLA ENT: NA/AT - Neck Neck: normal ROM - Respiratory Respiratory: bilateral: diminished - Cardiovascular Rhythm: regularly irregular Results CBC & Chem 7: 02/17/22 06:59 02/17/22 06:59 Labs: Abnormal Lab Results - Last 24 Hours (Table) 02/16/22 02/16/22 02/16/22 Range/Units 07:36 15:30 15:30 WBC (3.8-10.6) k/uL RBC (3.80-5.40) m/uL Hgb (11.4-16.0) gm/dL Hct (34.0-46.0) % MCV (80.0-100.0) fL MCH (25.0-35.0) pg MCHC (31.0-37.0) g/dL RDW (11.5-15.5) % Plt Count (150-450) k/uL Lymphocytes # (1.0-4.8) k/uL PT 12.3 H (9.0-12.0) sec INR 1.2 H (<1.2) D-Dimer 1.29 H (<0.60) mg/L FEU Chloride (98-107) mmol/L Glucose (74-99) mg/dL Calcium (8.4-10.2) mg/dL Total Protein (6.3-8.2) g/dL Total Protein (PEP) (6.2-8.2) g/dL Albumin (3.5-5.0) g/dL HDL Cholesterol 19.90 L (40.00-60.00) mg/dL IgG (700.0-1600.0) mg/dL IgM (40.0-280.0) mg/dL Rheumatoid Factor 16 H (0-15) IU/mL JAMES Screen (NEGATIVE) 02/16/22 02/16/22 02/17/22 Range/Units 15:30 15:30 06:59 WBC 3.4 L (3.8-10.6) k/uL RBC 3.42 L (3.80-5.40) m/uL Hgb 8.1 L (11.4-16.0) gm/dL Hct 26.4 L (34.0-46.0) % MCV 77.2 L (80.0-100.0) fL MCH 23.6 L (25.0-35.0) pg MCHC 30.6 L (31.0-37.0) g/dL RDW 20.7 H (11.5-15.5) % Plt Count 90 L (150-450) k/uL Lymphocytes # 0.3 L (1.0-4.8) k/uL PT (9.0-12.0) sec INR (<1.2) D-Dimer (<0.60) mg/L FEU Chloride (98-107) mmol/L Glucose (74-99) mg/dL Calcium (8.4-10.2) mg/dL Total Protein (6.3-8.2) g/dL Total Protein (PEP) 5.9 L (6.2-8.2) g/dL Albumin (3.5-5.0) g/dL HDL Cholesterol (40.00-60.00) mg/dL IgG 1874.0 H (700.0-1600.0) mg/dL IgM 313.0 H (40.0-280.0) mg/dL Rheumatoid Factor (0-15) IU/mL JAMES Screen POSITIVE A (NEGATIVE) 02/17/22 Range/Units 06:59 WBC (3.8-10.6) k/uL RBC (3.80-5.40) m/uL Hgb (11.4-16.0) gm/dL Hct (34.0-46.0) % MCV (80.0-100.0) fL MCH (25.0-35.0) pg MCHC (31.0-37.0) g/dL RDW (11.5-15.5) % Plt Count (150-450) k/uL Lymphocytes # (1.0-4.8) k/uL PT (9.0-12.0) sec INR (<1.2) D-Dimer (<0.60) mg/L FEU Chloride 110 H (98-107) mmol/L Glucose 114 H (74-99) mg/dL Calcium 7.5 L (8.4-10.2) mg/dL Total Protein 5.7 L (6.3-8.2) g/dL Total Protein (PEP) (6.2-8.2) g/dL Albumin 2.3 L (3.5-5.0) g/dL HDL Cholesterol (40.00-60.00) mg/dL IgG (700.0-1600.0) mg/dL IgM (40.0-280.0) mg/dL Rheumatoid Factor (0-15) IU/mL JAMES Screen (NEGATIVE) Microbiology - Last 24 Hours (Table) 02/16/22 15:33 Nasal Screen MRSA/MSSA - Preliminary Nasal Swab 02/11/22 12:23 Blood Culture - Preliminary Blood No Growth after 120 hours 02/11/22 12:12 Blood Culture - Preliminary Blood No Growth after 120 hours Comments: Serratia marcescens (1) 01/24/22 NANCY 2/2 POSITIVE Antibiotic MONSERRAT Interpretation Amoxicillin/K Clavulanate >16/8 Resistant Ampicillin >16 Resistant Ampicillin/Sulbactam 16/8 Resistant Cefazolin >16 Resistant Cefoxitin 16 Resistant Cefuroxime >16 Resistant c Ciprofloxacin <=1 Susceptible Gentamicin <=1c Susceptible Levofloxacin <=0.25 Susceptible Piperacillin/Tazobactam 32 Intermediate Tetracycline >8 Resistant Tobramycin 2 Susceptible Trimethoprim/Sulfa <=2/[address] SCAN FROM OUTSIDE HOSPITAL SPLEEN: Splenomegaly measuring 17.8 cm with two areas of peripheral hypodensity concerning for splenic infarcts v Narrative & Impression CT ABD/PELVIS IV CONTRAST ONLY: 01/24/2022 12:22 PM. Indication: 36 years old Female. Diarrhea.. Comparison: none. Technical: Multiple sequential axial CT images were obtained of the abdomen and pelvis from the lung bases to the ischial tuberosities following the uneventful IV administration of Isovue 370. Motion artifact limit evaluation of the lower abdomen and pelvis. Findings: LOWER THORAX: Unremarkable. ABDOMEN: LIVER: There is a small nonspecific hypodensity within the right hepatic lobe measuring 7 mm. There is also a tiny hypodensity in the far presumed left hepatic lobe on image 16. GALLBLADDER AND BILE DUCTS: Normal caliber. Gallbladder contracted. PANCREAS: Unremarkable. SPLEEN: Splenomegaly measuring 17.8 cm with two areas of peripheral hypodensity concerning for splenic infarcts. ADRENAL GLANDS: Within normal limits. KIDNEYS: Symmetric without hydronephrosis. BOWEL: There is wall edema involving the distal descending and rectosigmoid colon. No dilated bowel loops. Appendix is not visualized. PERITONEUM/MESENTERY: No ascites. No fluid collection. VASCULATURE: No abdominal aortic aneurysm. Portal vein is prominent measuring 16 cm and the splenic vein appears prominent however they appear patent. RETROPERITONEUM: Within normal limits. PELVIS: PELVIC ORGANS: No pelvic masses. URINARY BLADDER: Within normal limits. LYMPH NODES: No lymphadenopathy in the abdomen or pelvis. ABDOMINAL WALL: Within normal limits. MUSCULOSKELETAL: No acute fracture. IMPRESSION: 1. Bowel wall edema involving the distal descending and rectosigmoid colon suggestive of underlying infectious or inflammatory colitis. 2. Splenomegaly measuring up to 17.8 cm with areas concerning for infarcts. Additionally the portal portal and splenic veins appear prominent could be due to underlying portal hypertension. 3. There are a couple nonspecific small hypodensities in the liver that are unable to be adequately characterize. 01/24/2022 12:23 PM RELEVANT CLINICAL INFO: AMS, TECHNIQUE: Single frontal view of the chest was obtained. COMPARISON: None. Impression: Mild pulmonary vascular congestion versus pneumonitis noted. No sizable pleural effusion, focal consolidation or pneumothorax. 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 She also recently had injury to back, however she did not undergo surgical intervention Current Visit: Yes Status: Acute Code(s): R78.81 - BACTEREMIA SNOMED Code(s): 3247932 (2) Pancytopenia Narrative/Plan: - Secondary to ongoing inflammation and infection, resulting in likely horvath ppression of bone marrow - She is microcytic anemia however in the picture of sepsis and systemic i nfection, especially with heart involvement, parental iron supplementation should be avoided. Discussed with patient, ID, and CTS. Data is limited but potential worsening oxidative stress and infection have been documented in research. PO supp ok B12 level normal low - Check MMA Check Vitamin D - Needed for for immune support, risk of worsening vitamin D levels associated with prolonged steroid use. Current Visit: Yes Status: Acute Code(s): D61.818 - OTHER PANCYTOPENIA SNOMED Code(s): 950372357 (3) Endocarditis Current Visit: Yes Status: Acute Code(s): I38 - ENDOCARDITIS, VALVE UNSPECIFIED SNOMED Code(s): 86557628 (4) Anxiety Current Visit: Yes Status: Acute Code(s): F41.9 - ANXIETY DISORDER, UNSPECIFIED SNOMED Code(s): 63884768 (5) PTSD (post-traumatic stress disorder) Current Visit: Yes Status: Acute Code(s): F43.10 - POST-TRAUMATIC STRESS DISORDER, UNSPECIFIED SNOMED Code(s): 13030765 (6) Status post recent immunosuppressive therapy Narrative/Plan: Prolonged corticosteroids with recent injury to back Current Visit: Yes Status: Acute Code(s): Z92.25 - PERSONAL HISTORY OF IMMUNOSUPPRESSION THERAPY SNOMED Code(s): 81753220 (7) Splenomegaly Current Visit: Yes Status: Acute Code(s): R16.1 - SPLENOMEGALY, NOT ELSEWHERE CLASSIFIED SNOMED Code(s): 40263981 Plan: Additional work-up ordered. PO Iron Await MMA
[2022-02-17] MEDS: FERROUS SULFATE 325 MG TAB PO SCH (16:44)
[2022-02-17] MEDS: ASCORBIC ACID 500 MG TAB PO SCH ×2 (16:47→21:11)
--- NOTE | 2022-02-17 17:48 | P.PN ---
Subjective Progress Note Date: 02/17/22 CHIEF COMPLAINT: Colitis HISTORY OF PRESENT ILLNESS: The patient is a 36-year-old female with valvular vegetation and previous positive blood cultures who presented with history of colitis. She's had a full workup including colonoscopy demonstrating no residual colitis. She also had a tooth extraction. No further fevers or chills. Blood cultures are negative. Her family is at bedside. She is t olerating diet. Patient is scheduled to undergo valve replacement tomorrow with Dr. Camacho. She is sitting up in chair with family. ROS: No reports of nausea and vomiting. No bowel movements. No new chest pain. PHYSICAL EXAM: VITAL SIGNS: Reviewed CONSTITUTIONAL: Well developed and in no acute distress. EYES: Conjuctivae without sclera icterus. Extraocular movements grossly intact. HEAD, EARS, NOSE, THROAT: Moist buccal mucosa. Head is atraumatic, normocephalic. Hears conversational speech. No nasal drainage. RESPIRATORY: Non-labored respirations and equal bilateral excursions. CARDIOVASCULAR: Palpable 2+ radial pulses. ABDOMEN: Nontender. MUSCULOSKELETAL: No gross deformity of the lower extremities noted. No clubbing. No cyanosis. SKIN: Good skin turgor. Well perfused. NEUROLOGIC: Cranial nerves II through XII grossly intact. No focal or lateralizing signs. PSYCH: Appropriate affect. Alert and oriented to person, place and time. CLINICAL LABS: Reviewed. WBC at 3.4, leukopenia MICROBIOLOGY: Blood cultures negative after 144 hours. Nasal swab pending for MSSA and MRSA ASSESSMENT: 1. Sepsis due to valvular vegetation 2. Colitis, history PLAN: 1. She is doing well. Diet as tolerated 2. Recommend increased protein intake for optimal recovery Objective - Vital Signs Vital signs: Vital Signs Temp 98.2 F 02/17/22 16:00 Pulse 106 H 02/17/22 16:00 Resp 18 02/17/22 16:00 BP 111/63 02/17/22 16:00 Pulse Ox 98 02/17/22 16:00 FiO2 21 02/15/22 21:10 Intake & Output 02/16/22 02/17/22 02/17/22 18:59 06:59 18:59 Intake Total 255 690 Output Total 1700 240 Balance 255 -1010 -240 Weight 73.6 kg 73.6 kg Intake: IV 180 Cefepime 2 gm In Sodium 100 Chloride 0.9% 100 ml @ 25 mls/hr IVPB Q8HR [facility] Rx# :[id number] Sodium Chloride 0.9% 1, 80 000 ml @ 20 mls/hr IV . Q24H [facility] Rx#:[id number] Intake, IV Titration 100 Amount Cefepime 2 gm In Sodium 100 Chloride 0.9% 100 ml @ 25 mls/hr IVPB Q8HR [facility] Rx# :[id number] Oral 75 590 Output: Urine 1700 240 - Labs CBC & Chem 7: 02/17/22 06:59 02/17/22 06:59 Labs: Abnormal Lab Results - Last 24 Hours (Table) 02/16/22 02/16/22 02/16/22 Range/Units 07:36 15:30 15:30 WBC (3.8-10.6) k/uL RBC (3.80-5.40) m/uL Hgb (11.4-16.0) gm/dL Hct (34.0-46.0) % MCV (80.0-100.0) fL MCH (25.0-35.0) pg MCHC (31.0-37.0) g/dL RDW (11.5-15.5) % Plt Count (150-450) k/uL Lymphocytes # (1.0-4.8) k/uL Chloride (98-107) mmol/L Glucose (74-99) mg/dL Calcium (8.4-10.2) mg/dL Total Protein (6.3-8.2) g/dL Total Protein (PEP) 5.9 L (6.2-8.2) g/dL Albumin (3.5-5.0) g/dL HDL Cholesterol 19.90 L (40.00-60.00) mg/dL IgG (700.0-1600.0) mg/dL IgM (40.0-280.0) mg/dL Rheumatoid Factor 16 H (0-15) IU/mL JAMES Screen POSITIVE A (NEGATIVE) 02/16/22 02/17/22 02/17/22 Range/Units 15:30 06:59 06:59 WBC 3.4 L (3.8-10.6) k/uL RBC 3.42 L (3.80-5.40) m/uL Hgb 8.1 L (11.4-16.0) gm/dL Hct 26.4 L (34.0-46.0) % MCV 77.2 L (80.0-100.0) fL MCH 23.6 L (25.0-35.0) pg MCHC 30.6 L (31.0-37.0) g/dL RDW 20.7 H (11.5-15.5) % Plt Count 90 L (150-450) k/uL Lymphocytes # 0.3 L (1.0-4.8) k/uL Chloride 110 H (98-107) mmol/L Glucose 114 H (74-99) mg/dL Calcium 7.5 L (8.4-10.2) mg/dL Total Protein 5.7 L (6.3-8.2) g/dL Total Protein (PEP) (6.2-8.2) g/dL Albumin 2.3 L (3.5-5.0) g/dL HDL Cholesterol (40.00-60.00) mg/dL IgG 1874.0 H (700.0-1600.0) mg/dL IgM 313.0 H (40.0-280.0) mg/dL Rheumatoid Factor (0-15) IU/mL JAMES Screen (NEGATIVE) Microbiology - Last 24 Hours (Table) 02/11/22 12:12 Blood Culture - Final Blood No Growth after 144 hours 02/11/22 12:23 Blood Culture - Final Blood No Growth after 144 hours 02/16/22 15:33 Nasal Screen MRSA/MSSA - Preliminary Nasal Swab
[2022-02-18] MEDS: CEFEPIME 2 GM in SODIUM CHLORIDE 0.9% 100 ML IVPB SCH ×4 (00:07→23:27)
[2022-02-18] MEDS ORDERED: ALBUMIN HUMAN 5% 500 ML in EMPTY BAG 1 BAG IVPB ONE ×6 (05:00)
[2022-02-18] MEDS ORDERED: NOREPINEPHRINE 4 MG in SODIUM CHLORIDE 0.9% 250 ML IV SCH (06:00)
[2022-02-18] MEDS ORDERED: ASPIRIN 325 MG TAB PO ONE ×2 (06:00)
[2022-02-18] MEDS ORDERED: SODIUM BICARB 8.4% 50 ML SYR (1 MEQ/ML) IV ONE (06:00)
[2022-02-18] MEDS ORDERED: CHLORHEXIDINE GLUCONATE 15 ML CUP MUCOUS MEM ONE ×2 (06:00)
[2022-02-18] MEDS ORDERED: CARDIOPLEGIC SOLN (K+ 16 MEQ/L 1,000 ML with SOD BICARB SYR 8.4% (1 MEQ/ML) 20 ML, LIDO... PERFUSION NR ×3 (06:00)
[2022-02-18] MEDS ORDERED: PROTAMINE SULFATE 10 MG/ML 25 ML VIAL IV ONE ×2 (06:00→07:35)
[2022-02-18] MEDS ORDERED: INSULIN REGULAR 100 UNIT in SODIUM CHLORIDE 0.9% 100 ML IV SCH ×2 (06:00→12:08)
[2022-02-18] MEDS ORDERED: ALBUMIN HUMAN 25% 50 ML in EMPTY BAG 1 BAG IVPB ONE (06:00)
[2022-02-18] MEDS ORDERED: NITROGLYCERIN-D5W PMX 25 MG/250 ML BTL IV ONE (06:00)
[2022-02-18] MEDS ORDERED: CLEVIDIPINE BUTYRATE 25 MG in EMPTY BAG 1 BAG IV SCH (06:00)
[2022-02-18] MEDS ORDERED: ceFAZolin 1,000 MG in SODIUM CHLORIDE 0.9% IRRIGATIO 1,000 ML IRRIGATION ONE (06:00)
[2022-02-18] MEDS ORDERED: METOPROLOL TARTRATE 12.5 MG TAB PO ONE (06:00)
[2022-02-18] MEDS ORDERED: TRANEXAMIC ACID 2,000 MG in SODIUM CHLORIDE 0.9% 80 ML IV ONE (06:00)
[2022-02-18] MEDS ORDERED: CALCIUM CHLORIDE 100 MG/ML 10 ML SYRINGE IVP ONE (06:00)
[2022-02-18] MEDS ORDERED: ATORVASTATIN 10 MG TAB PO ONE (06:00)
[2022-02-18] MEDS ORDERED: MAGNESIUM SULFATE 16.24 MEQ in EMPTY SYRINGE 1 SYR IV ONE (06:00)
[2022-02-18] MEDS ORDERED: HEPARIN SODIUM,PORCINE 5,000 UNIT in SODIUM CHLORIDE 0.9% 500 ML 500 ML IV ONE (06:00)
[2022-02-18] MEDS ORDERED: NITROGLYCERIN-D5W PMX 50 MG in DEXTROSE/WATER 1 250ML.BAG IV SCH (06:00)
[2022-02-18] MEDS ORDERED: MANNITOL 25% 12.5 GM/50 ML VIAL IV ONE ×2 (06:00)
[2022-02-18] MEDS ORDERED: PROTAMINE SULFATE 250 MG in EMPTY BAG 1 BAG IV ONE (06:00)
[2022-02-18] MEDS ORDERED: HEPARIN SODIUM 1,000 UN/ML (10ML VL) IV ONE (06:00)
[2022-02-18] MEDS ORDERED: PHENYLEPHRINE 40 MG in SODIUM CHLORIDE 0.9% 250 ML IV ONE (06:00)
[2022-02-18] MEDS: LOPERAMIDE 2 MG CAP PO SCH (06:03)
[2022-02-18] MEDS: FERROUS SULFATE 325 MG TAB PO SCH (06:06)
[2022-02-18] MEDS: PANTOPRAZOLE 40 MG/10 ML VIAL IVP SCH (06:09)
[2022-02-18] MEDS: ASCORBIC ACID 500 MG TAB PO SCH (06:11)
[2022-02-18] MEDS: MUPIROCIN 2% OINT 22 GM TUBE NASAL SCH (06:12)
[2022-02-18] MEDS: ACETAMINOPHEN TAB 500 MG TAB PO PRN (06:48)
[2022-02-18 07:02] LABS: Glucose,Whole Blood 118 mg/dL (70-110)
[2022-02-18 07:33] LABS: Anisocytosis Moderate; Basophils % (A) 0 %; Eosinophils % (A) 1 %; HCT 26.8 % (34.0-46.0); HGB 8.2 gm/dL (11.4-16.0); Hypochromasia Marked; Lymphocytes # (A) 0.3 k/uL (1.0-4.8); Lymphocytes % (A) 6 %; MCH 23.1 pg (25.0-35.0); MCHC 30.4 g/dL (31.0-37.0); MCV 76.1 fL (80.0-100.0); Mean Platelet Volume 7.6; Microcytosis Moderate; Monocytes # (A) 0.2 k/uL (0-1.0); Monocytes % (A) 5 %; Neutrophils # (A) 3.4 k/uL (1.3-7.7); Neutrophils % (A) 86 %; Poikilocytosis Slight; RBC 3.52 m/uL (3.80-5.40); RDW 20.4 % (11.5-15.5)
[2022-02-18] MEDS ORDERED: MILRINONE 1 MG/ML 20 ML VIAL IV ONE (07:35)
[2022-02-18] MEDS ORDERED: ELECTROLYTE-R (PH 7.4) 1,000 ML IV.SOLN IV ONE (07:35)
[2022-02-18] MEDS ORDERED: WATER FOR INJECTION, STERILE 10 ML VIAL IV ONE (07:35)
[2022-02-18] MEDS ORDERED: LIDOCAINE 2% SYG (PF) 100 MG/5 ML ONE (07:35)
[2022-02-18] MEDS ORDERED: MIDAZOLAM HCL 10 MG/10 ML VIAL ONE (07:35)
[2022-02-18] MEDS ORDERED: fentaNYL (PF) 50 MCG/ML 50 ML VIAL ONE (07:35)
[2022-02-18] MEDS ORDERED: HEPARIN SODIUM,PORCINE 10,000 UNIT/ML 1 ML VIAL ONE (07:35)
[2022-02-18] MEDS ORDERED: TRANEXAMIC ACID IN NACL,ISO-OS 1,000 MG/100 ML BAG ONE (07:35)
[2022-02-18] MEDS ORDERED: ePHEDrine 50 MG/ML 1 ML VIAL ONE (07:35)
[2022-02-18] MEDS ORDERED: INSULIN REGULAR 100 UNIT/ML VIAL (IV) ONE (07:35)
[2022-02-18] MEDS ORDERED: PROPOFOL 10 MG/ML 20 ML VIAL IV ONE (07:35)
[2022-02-18] MEDS ORDERED: SODIUM CHLORIDE 0.9% IRRIG 1,000 ML BTL IRRIGATION ONE (07:35)
[2022-02-18] MEDS ORDERED: CEFEPIME 2 GM VIAL IVPB ONE (07:35)
[2022-02-18] MEDS ORDERED: CALCIUM CHLORIDE 100 MG/ML 10 ML SYRINGE ONE (07:35)
[2022-02-18] MEDS ORDERED: VECURONIUM 10 MG VIAL IV ONE (07:35)
[2022-02-18] MEDS ORDERED: MAGNESIUM SULFATE 4 MEQ/ML 10ML VIAL ONE (07:35)
[2022-02-18 07:43] LABS: Platelet Count 82 k/uL (150-450)
--- NOTE | 2022-02-18 07:57 | P.ANPRN ---
Procedure Note - Anesthesia - Invasive Line Right Arterial Line Time Out Performed: Yes Date of Procedure: 02/18/22 Time of Procedure: 07:20 Location of Patient: PreOp Preparation: Sterile Prep, Sterile Dressing Arterial Line Location: Radial Ultrasound Used: No Needle Guage: 20 Image Stored and Saved: No Narrative: Right radial arterial line placed by POWER WHEELCHAIR MECHANIC under sterile conditions Right Central Line Time Out Performed: Yes Date of Procedure: 02/18/22 Time of Procedure: 07:25 Location of Patient: PreOp Preparation: Sterile Prep, Sterile Dressing Ultrasound Used: Yes Purpose - Visualization and Identification of Vasculature: Yes Needle Guage: 18 Image Stored and Saved: Yes Narrative: R IJ Cordis placed under u/s guidance. Sterile conditions maintained. Biopatch and occlusive dressing placed. Right Kane Rajni Time Out Performed: Yes Date of Procedure: 02/18/22 Time of Procedure: 07:35 Location of Patient: PreOp Preparation: Sterile Prep, Sterile Dressing Narrative: R IJ Kane placed via cordis. RV and then PA waveforms obtained. Catheter secured at 43 cm.
[2022-02-18 08:37] LABS: ABG Base Excess -2.6 mmol/L; ABG Glucose Whole Blood 113 mg/dL (75-99); ABG HCO3 22 mmol/L (21-25); ABG Ionized Calcium 4.4 mg/dL (4.5-5.3); ABG Lactic Acid Whole Blood 0.8 mmol/L (0.5-1.6); ABG Oxygen Saturation 99.6 % (94-97); ABG PCO2 34 mmHg (35-45); ABG PH 7.41 (7.35-7.45); ABG PO2 195 mmHg (83-108); ABG Potassium Whole Blood 3.3 mmol/L (3.4-4.5); ABG Sodium Whole Blood 138 mmol/L (135-146); ABG TCO2 23 mmol/L (19-24)
[2022-02-18 09:10] LABS: ABG Base Excess -2.6 mmol/L; ABG Glucose Whole Blood 129 mg/dL (75-99); ABG HCO3 22 mmol/L (21-25); ABG Ionized Calcium 4.4 mg/dL (4.5-5.3); ABG Lactic Acid Whole Blood 0.4 mmol/L (0.5-1.6); ABG PCO2 38 mmHg (35-45); ABG PH 7.37 (7.35-7.45); ABG PO2 357 mmHg (83-108); ABG Potassium Whole Blood 3.4 mmol/L (3.4-4.5); ABG Sodium Whole Blood 137 mmol/L (135-146); ABG TCO2 24 mmol/L (19-24)
[2022-02-18 09:25] LABS: ABG Base Excess -3.2 mmol/L; ABG Glucose Whole Blood 138 mg/dL (75-99); ABG HCO3 21 mmol/L (21-25); ABG Ionized Calcium 3.7 mg/dL (4.5-5.3); ABG Lactic Acid Whole Blood 1.1 mmol/L (0.5-1.6); ABG PCO2 32 mmHg (35-45); ABG PH 7.43 (7.35-7.45); ABG PO2 368 mmHg (83-108); ABG Potassium Whole Blood 3.9 mmol/L (3.4-4.5); ABG Sodium Whole Blood 137 mmol/L (135-146); ABG TCO2 22 mmol/L (19-24)
[2022-02-18 10:01] LABS: ABG Base Excess -5.3 mmol/L; ABG Glucose Whole Blood 151 mg/dL (75-99); ABG HCO3 22 mmol/L (21-25); ABG Ionized Calcium 4.4 mg/dL (4.5-5.3); ABG Lactic Acid Whole Blood 0.7 mmol/L (0.5-1.6); ABG Oxygen Saturation 99.4 % (94-97); ABG PCO2 49 mmHg (35-45); ABG PH 7.26 (7.35-7.45); ABG PO2 209 mmHg (83-108); ABG Sodium Whole Blood 136 mmol/L (135-146); ABG TCO2 23 mmol/L (19-24)
[2022-02-18 10:30] LABS: ABG Base Excess -4.4 mmol/L; ABG Glucose Whole Blood 148 mg/dL (75-99); ABG HCO3 21 mmol/L (21-25); ABG Hematocrit 26 % (34.0-46.0); ABG Ionized Calcium 4.3 mg/dL (4.5-5.3); ABG Lactic Acid Whole Blood 0.7 mmol/L (0.5-1.6); ABG Oxygen Saturation 99.7 % (94-97); ABG PCO2 41 mmHg (35-45); ABG PH 7.33 (7.35-7.45); ABG PO2 279 mmHg (83-108); ABG Potassium Whole Blood 4.1 mmol/L (3.4-4.5); ABG Sodium Whole Blood 137 mmol/L (135-146); ABG TCO2 23 mmol/L (19-24)
[2022-02-18 11:06] LABS: ABG Hematocrit 19 % (34.0-46.0); Allen Test Performed? no
[2022-02-18 11:08] LABS: ABG Hematocrit 19 % (34.0-46.0); Allen Test Performed? No
[2022-02-18 11:09] LABS: ABG Hematocrit 21 % (34.0-46.0); Allen Test Performed? NO
[2022-02-18 11:10] LABS: ABG Hematocrit 23 % (34.0-46.0); Allen Test Performed? NO
[2022-02-18 11:10] LABS: Allen Test Performed? NO
[2022-02-18 11:15] LABS: ABG Base Excess -1.7 mmol/L; ABG Glucose Whole Blood 168 mg/dL (75-99); ABG HCO3 23 mmol/L (21-25); ABG Lactic Acid Whole Blood 0.7 mmol/L (0.5-1.6); ABG PCO2 37 mmHg (35-45); ABG PO2 274 mmHg (83-108); ABG Potassium Whole Blood 3.9 mmol/L (3.4-4.5); ABG Sodium Whole Blood 137 mmol/L (135-146); ABG TCO2 24 mmol/L (19-24)
[2022-02-18 11:25] LABS: ABG Hematocrit 23 % (34.0-46.0); Allen Test Performed? NO
--- NOTE | 2022-02-18 11:32 | P.ANPRN ---
Procedure Note - Anesthesia - WADE Intraop Pre Bypass WADE Intraop - Anesthesia Indication: Aortic valve endocarditis Date of Procedure: 02/18/22 Pre-operative Diagnosis: Aortic valve endocarditis Post-operative Diagnosis: same Surgeon: Tomas Camacho Left Ventricle: EF 50 Ejection Fraction: Normal Regional Wall Motion Abnormalities: None Left Ventricle Hypertrophy: No R. Ventricle Function: Normal Anatomy: Trileaflet Aortic Stenosis: None Aortic Regurgitation: Severe Other Findings: Significant vegetation on aortic valve. Reversal of flow in abdominal aorta consistent with severe AI. Erosion supravalvular in area of RCC w/o fistualization Mitral Stenosis: None Mitral Regurgitation: Trace Tricuspid Stenosis: None Tricuspid Regurgitation: None Pulmonic Stenosis: None Pulmonic Regurgitation: None R. Atrial Dilation: No R. Atrial PFO: No L. Atrial Dilation: No Aortic Dissection: No Aortic Calcification: None Plural Effusion: Right, Left - WADE Intraop Post Bypass WADE Intraop Post Bypass Procedure Performed: AVR mechanical, LA appendage ligation Left Ventricle: EF 50% Ejection Fraction: Normal Regional Wall Motion Abnormalities: None R. Ventricle Function: Normal Aortic Valve: Mechanical AV w/ Peak 21 mmHg Mean 12 mmHg Mitral Valve: Unchanged Tricuspid: Unchanged Pulmonic: Unchanged Aortic Dissection: No
[2022-02-18 11:48] LABS: ABG Base Excess -1.4 mmol/L; ABG Glucose Whole Blood 163 mg/dL (75-99); ABG HCO3 23 mmol/L (21-25); ABG Ionized Calcium 4.6 mg/dL (4.5-5.3); ABG Lactic Acid Whole Blood 0.9 mmol/L (0.5-1.6); ABG Oxygen Saturation 99.8 % (94-97); ABG PCO2 35 mmHg (35-45); ABG PH 7.43 (7.35-7.45); ABG PO2 301 mmHg (83-108); ABG Potassium Whole Blood 3.8 mmol/L (3.4-4.5); ABG Sodium Whole Blood 138 mmol/L (135-146); ABG TCO2 24 mmol/L (19-24)
[2022-02-18] MEDS ORDERED: HUMAN PROTHROMBIN COMPLX 500 UNIT/16 ML VIAL IV ONE (12:00)
[2022-02-18] MEDS ORDERED: DEXTROSE 5% IN WATER 100 ML with AMIODARONE 150 MG IV PRN (12:08)
[2022-02-18] MEDS ORDERED: AMIODARONE 360 MG in DEXTROSE 5% IN WATER 200 ML IV PRN ×2 (12:08)
[2022-02-18] MEDS ORDERED: Magnesium Replacement Protocol 1 EACH MISC MISCELLANE PRN (12:08)
[2022-02-18] MEDS ORDERED: DEXTROSE 50% SYRINGE 50 ML IVP PRN ×2 (12:08)
[2022-02-18] MEDS ORDERED: METOCLOPRAMIDE 5 MG/ML 2 ML VIAL IVP PRN (12:08)
[2022-02-18] MEDS ORDERED: IPRATROPIUM-ALBUTEROL 3 ML NEB INHALATION PRN (12:08)
[2022-02-18] MEDS ORDERED: Potassium Replacement Protocol 1 EACH MISC MISCELLANE PRN (12:08)
[2022-02-18] MEDS ORDERED: hydrALAZINE HCL 20 MG/ML 1 ML VIAL IVP PRN (12:08)
[2022-02-18] MEDS ORDERED: BENZOCAINE/MENTHOL LOZENG 1 EACH LOZENGE MUCOUS MEM PRN (12:08)
[2022-02-18] MEDS ORDERED: AMIODARONE 450 MG in DEXTROSE 5% IN WATER 250 ML IV PRN ×2 (12:08)
[2022-02-18] MEDS ORDERED: Phosphorus Replacement Protoco 1 EACH MISC MISCELLANE PRN (12:08)
[2022-02-18] MEDS ORDERED: CALCIUM GLUCONATE IN NACL 2 GM in SALINE 1 100ML.BAG IVPB PRN (12:08)
[2022-02-18 12:11] LABS: ABG Hematocrit 23 % (34.0-46.0); Allen Test Performed? NO
[2022-02-18] MEDS: CHOLESTYRAMINE (WITH SUGAR) 4 GM PACKET PO SCH ×2 (12:25→19:52)
--- NOTE | 2022-02-18 12:33 | P.OP ---
Date of Procedure: 02/18/22 Preoperative Diagnosis: Aortic valve endocarditis, severe aortic insufficiency, possible root abscess. Postoperative Diagnosis: Same Procedure(s) Performed: Aortic valve replacement with 23 mm On-X mechanical aortic valve, patch closure of aortotomy with involving pericardium, debridement of some annular infected tissue in aortic outflow tract, ligation of left atrial appendage with 35 mm AtriCure clip. Implants: 23 mm On-X valve, 35 mm AtriCure clip, Bovie pericardium for closure of aortotomy Anesthesia: GETA Surgeon: Tomas Camacho Nail Puller #1: Gianluca Beck Nail Puller #2: Perico Villegas Estimated Blood Loss (ml): 1,000 IV fluids (ml): 2,000 Urine output (ml): 500 Pathology: other (Aortic valve, vegetation for culture) Condition: critical Disposition: ICU Indications for Procedure: 36-year-old female initially seen at [facility] and diagnosed with Serratia sepsis and anemia possible GI bleeding. He was discharged home on by mouth antibiotics. She was set up to see GI as an outpatient. She'll be presented to [facility] less than a week later in acute pulmonary edema secondary to severe acute aortic insufficiency. Echocardiography was consistent with severe aortic insufficiency and dilated left ventricle with large vegetation on the aortic valve. WADE confirmed this and was suspicious for some valve are abscess. Patient was initially intubated in the ICU but was treated medically and improved. She was able to be extubated and transferred to the floor. Workup included CT of the abdomen and pelvis, colonoscopy and dental evaluation. Initial hemoglobin was 5 and she received 4 units of packed red blood cells on admission in the ICU. Dental evaluation revealed cracked infected tooth and she underwent dental extraction. Her sepsis improved and her blood cultures were negative. She had persistent anemia as well as low white count and was seen by hematology. This was all felt to be due to marrow s uppression from severe illness and disease. She was scheduled for elective aortic valve replacement surgery. Discussion was held preoperatively over valve prosthesis. Patient is single and does not have children but decided to have a mechanical valve. She was clear that she did not have children in the future. She said that if she decides to have children she will adopt. Operative Findings: Aortic valve was trileaflet. There was partial destruction of the right coronary cusp with a large vegetation attached. There was also vegetative change of the non-coronary cusp. The subcu valve are area below the right and non-coronary cusp was partially eaten away by the infection. There was no deep penetrating tunnel. There was no portia fossa. There was minimal necrotic tissue. Overlying aortic annulus was partially intact and adequate for suture placement. Ascending aorta itself was free of disease but was very thin and friable. Description of Procedure: Patient was brought to the operating room and placed supine on the operating table. Gen. anesthesia was induced. Monitoring lines of been placed in the preop holding area. The anterior torso and lower extremities were sterilely prepped and draped in standard fashion. WADE probe was placed. Midline sternotomy was performed. The pleural spaces were opened bilaterally. P ericardium was opened in the midline. Heart was exposed with pericardial sutures. Patient was systemically heparinized. A CTs were maintained greater than 450 during the pump run. Patient was cannulated for cardiopulmonary bypass with a 7 mm soft flow cannula in the distal ascending aorta and a two-stage venous cannula through the right atrial appendage into the inferior vena cava. Antegrade and retrograde cardiac lesion was replaced in standard fashion. Patient was placed on its cardial coronary bypass and stabilized. Pursestring suture was placed in the right superior pulmonary vein. Left atrial appendage was ligated at its base with a 35 mm AtriCure clip. The aorta was crossclamped and the heart arrested with cold crystalloid antegrade cardioplegia followed by retrograde cardioplegia. Left atrial vent was placed through the right superior pulmonary vein pursestring. The aorta was opened transversely and the valve was exposed with findings as noted above. The aortic valve leaflets were excised. A portion of the vegetation was sent for culture. We explored some valve R region and some gentle debridement was performed. We could not identify any deep penetrating abscess cavity or tracts. We then copiously irrigated the root and ascending aorta and left ventricle with several 100 mL of cold saline. Circumferential valve sutures of 2-0 Tycron were placed with pledgets on the ventricular side to allow a supra-annular closure. The annulus was sized and was felt to be able to get obtain a 23 mm On-X valve although the aorta itself would be somewhat tight. Valve sutures were placed in the sewing ring of the 23 On-X valve and the valve was seated without difficulty. Sutures were tied and cut the valve was noted to seat well. The aortotomy was tight and it was decided to improve despite closing with a pericardial patch. A piece of bovine pericardium was brought onto the field and appropriately washed. A strip of bovine pericardium was used to close the aortotomy starting at the aorta right above the annulus. This was performed with a running 5-0 Prolene single layer suture. On completion of the aortotomy closure patient was placed into steep Trendelenburg. The left atrial vent was removed. Pursestring suture was tied. The aortic cross-clamp was taken off. Patient returned to a spontaneous sinus rhythm. Retrograde cardioplegia line was removed and atrial and ventricular pacing wires were placed. The patient did not require pacing. There was some oozing from the aortotomy and it required one reinforcement suture of 5-0 Prolene speak. After appropriate rewarming, the patient was weaned from cardiopulmonary bypass. She easily. There was no significant aortic insufficiency. Ventricular function appeared good. She was on a low dose Primacor drip to support the ventricle. Heparin was reversed with protamine and good hemostasis was obtained throughout. Heart was decannulated in standard fashion and the aortic cannulation site and force with her pledgeted 4-0 Prolene suture. The left pleural space was drained with a 32-Polish chest tube. The right pleural space was drained with a 19 Dov. The mediastinum was drained with a 36 straight and a 32 right angle chest tube. These were all brought out through separate stab incisions and connected to Pleur-evac. Chest was irrigated with antibiotic solution. Sternum was closed with 8 sternal wires. Fascia was closed with 0 Ethibond. Subcutaneous and subcuticular layers were closed with layers of Vicryl suture. Dry sterile dressings were applied and the patient was transferred to the ICU in stable condition. She did receive 1 pack of platelets during the drying up period and she also received 2 units of packed red blood cells prior to going on pump.
[2022-02-18] MEDS: ALBUMIN HUMAN 5% 250 ML in EMPTY BAG 1 BAG IVPB PRN ×2 (12:40→19:04)
[2022-02-18] MEDS: IPRATROPIUM-ALBUTEROL 3 ML NEB INHALATION SCH ×3 (13:01→19:50)
[2022-02-18 13:15] LABS: INR 1.2 (<1.2); Partial Thromboplastin Time 33.1 sec (22.0-30.0); Prothrombin Time 12.6 sec (9.0-12.0)
--- NOTE | 2022-02-18 13:18 | XR ---
EXAMINATION TYPE: XR chest 1V portable DATE OF EXAM: 02/18/2022 1:03 PM COMPARISON: Chest radiographs from 02/17/2022 TECHNIQUE: XR chest 1V portable Frontal view of the chest. CLINICAL INDICATION:Female, 36 years old with history of Post Operative Cardiac Surgery; FINDINGS: Lungs/Pleura: Basilar atelectasis changes. There is no evidence of pleural effusion, focal consolidat ion, or pneumothorax. Pulmonary vascularity: Unremarkable. Heart/mediastinum: Cardiomediastinal silhouette is unremarkable. Musculoskeletal: No acute osseous pathology. Other findings: None Lines/Tubes: Endotracheal tube with distal tip 4.8 cm above the awais Nasogastric tube with its distal tip and side-port projecting under the diaphragm. There is a Burrton-Rajni catheter with tip projecting over the spine. Drainage tubes with tips projecting over the mediastinum. Left thoracotomy tube is present without evidence of pneumothorax. IMPRESSION: Postsurgical changes with lines and tubes as above.
[2022-02-18 13:20] LABS: Anisocytosis Moderate; Basophils % (A) 0 %; Eosinophils % (A) 0 %; HGB 7.4 gm/dL (11.4-16.0); Hypochromasia Marked; Lymphocytes # (A) 0.3 k/uL (1.0-4.8); Lymphocytes % (A) 6 %; MCH 24.9 pg (25.0-35.0); MCV 77.9 fL (80.0-100.0); Mean Platelet Volume 8.5; Microcytosis Moderate; Monocytes # (A) 0.2 k/uL (0-1.0); Monocytes % (A) 4 %; Neutrophils # (A) 4.9 k/uL (1.3-7.7); Neutrophils % (A) 88 %; Poikilocytosis Moderate; RBC 2.95 m/uL (3.80-5.40); RDW 20.4 % (11.5-15.5); WBC 5.5 k/uL (3.8-10.6)
[2022-02-18 13:21] LABS: Ionized Calcium 4.7 mg/dL (4.5-5.3)
[2022-02-18 13:22] LABS: ABG HCO3 23 mmol/L (21-25); ABG PCO2 37 mmHg (35-45); ABG PO2 >400 mmHg (83-108); ABG TCO2 24 mmol/L (19-24)
[2022-02-18 13:22] LABS: Platelet Count 76 k/uL (150-450)
[2022-02-18 13:24] LABS: Allen Test Performed? no
[2022-02-18 13:30] LABS: ALT 11 U/L (4-34); AST 25 U/L (14-36); African American GFR (CKD) >90 (>60 ml/min/1.73 sqM); Albumin 1.8 g/dL (3.5-5.0); Alkaline Phosphatase 43 U/L (38-126); Anion Gap 6 mmol/L; Blood Urea Nitrogen 18 mg/dL (7-17); Calcium 7.3 mg/dL (8.4-10.2); Carbon Dioxide 22 mmol/L (22-30); Chloride 109 mmol/L (98-107); Glucose 168 mg/dL (74-99); Magnesium 4.2 mg/dL (1.6-2.3); Non-African American GFR(CKD) 80 (>60 ml/min/1.73 sqM); Potassium 3.7 mmol/L (3.5-5.1); Sodium 137 mmol/L (137-145); Total Bilirubin 1.3 mg/dL (0.2-1.3); Total Protein 4.3 g/dL (6.3-8.2)
[2022-02-18 13:33] LABS: Glucose,Whole Blood 163 mg/dL (70-110)
[2022-02-18] MEDS ORDERED: Kcentra PER PHARMACY 1 EACH MISC MISCELLANE PRN (15:01)
[2022-02-18 15:09] LABS: Glucose,Whole Blood 171 mg/dL (70-110)
[2022-02-18 15:14] LABS: Anisocytosis Moderate; Hypochromasia Marked; MCV 78.2 fL (80.0-100.0); Mean Platelet Volume 11.2; Microcytosis Moderate; Poikilocytosis Moderate; RBC 2.27 m/uL (3.80-5.40); RDW 20.3 % (11.5-15.5)
[2022-02-18] MEDS: ACETAMINOPHEN IV (For NPO) 1,000 MG in EMPTY BAG 1 BAG IVPB SCH ×2 (15:23→18:42)
[2022-02-18 15:24] LABS: HCT 17.8 % (34.0-46.0); HGB 5.7 gm/dL (11.4-16.0); Platelet Count 77 k/uL (150-450)
[2022-02-18] MEDS ORDERED: HUMAN PROTHROMBIN COMPLX IV ONE (15:30)
[2022-02-18] MEDS: POTASSIUM CHLORIDE 10 MEQ in WATER FOR INJECTION 1 100ML.BAG IVPB SCH ×2 (15:41→17:00)
[2022-02-18] MEDS: LACTATED RINGERS 1,000 ML IV SCH (15:44)
[2022-02-18] MEDS ORDERED: HEPARIN SODIUM,PORCINE/PF 5,000 UNIT/0.5 ML SYRINGE SQ SCH (16:00)
[2022-02-18] MEDS ORDERED: fentaNYL (PF) 50 MCG/ML 2 ML AMP IVP ONE (16:19)
[2022-02-18 16:30] LABS: Glucose,Whole Blood 190 mg/dL (70-110)
[2022-02-18] MEDS ORDERED: CALCIUM CHLORIDE 1 GM in SODIUM CHLORIDE 0.9% 50 ML IVPB ONE (16:30)
--- NOTE | 2022-02-18 17:00 | XR ---
EXAMINATION TYPE: XR chest 1V portable DATE OF EXAM: 02/18/2022 COMPARISON: Today HISTORY: Postop heart surgery TECHNIQUE: Single view FINDINGS: The endotracheal tube is 4.5 cm from the awais. There is right jugular catheter with tip i n the main pulmonary artery. There are sternal wires. There is apparent drain over the heart. There i s nasogastric tube in the stomach. There is left-sided chest tube. No pneumothorax. There is infiltra te and atelectasis in both lower lobes and more on the right side. There is right pleural effusion. IMPRESSION: There is increasing right pleural effusion compared to exam 4 hours ago. No obvious heart failure.
[2022-02-18 17:25] LABS: ABG Base Excess -0.7 mmol/L; ABG HCO3 24 mmol/L (21-25); ABG Oxygen Saturation 99.9 % (94-97); ABG PCO2 36 mmHg (35-45); ABG PH 7.43 (7.35-7.45); ABG PO2 157 mmHg (83-108); ABG TCO2 25 mmol/L (19-24)
[2022-02-18 17:26] LABS: Allen Test Performed? no
[2022-02-18 17:33] LABS: Glucose,Whole Blood 154 mg/dL (70-110)
[2022-02-18 17:36] LABS: Anisocytosis Slight; Basophils % (A) 0 %; Eosinophils % (A) 0 %; HCT 22.3 % (34.0-46.0); Hypochromasia Moderate; Lymphocytes # (A) 0.4 k/uL (1.0-4.8); Lymphocytes % (A) 5 %; MCH 25.1 pg (25.0-35.0); MCHC 31.6 g/dL (31.0-37.0); MCV 79.6 fL (80.0-100.0); Mean Platelet Volume 11.1; Microcytosis Slight; Monocytes # (A) 0.2 k/uL (0-1.0); Monocytes % (A) 3 %; Neutrophils # (A) 6.4 k/uL (1.3-7.7); Neutrophils % (A) 90 %; Poikilocytosis Slight; RDW 18.9 % (11.5-15.5); WBC 7.1 k/uL (3.8-10.6)
[2022-02-18 17:44] LABS: Albumin 1.9 g/dL (3.5-5.0); Calcium 6.8 mg/dL (8.4-10.2); Magnesium 3.5 mg/dL (1.6-2.3); Potassium 4.1 mmol/L (3.5-5.1); Total Bilirubin 1.5 mg/dL (0.2-1.3); Total Protein 4.1 g/dL (6.3-8.2)
[2022-02-18] MEDS: DEXMEDETOMIDINE/0.9% NACL(PMX) 400 MCG in EMPTY BAG 1 BAG IV SCH (17:44)
[2022-02-18 17:47] LABS: Platelet Count 84 k/uL (150-450)
[2022-02-18 17:50] LABS: INR 1.1 (<1.2); Partial Thromboplastin Time 33.6 sec (22.0-30.0); Prothrombin Time 11.7 sec (9.0-12.0)
[2022-02-18 18:50] LABS: Glucose,Whole Blood 125 mg/dL (70-110)
--- NOTE | 2022-02-18 19:29 | P.PN ---
Subjective Progress Note Date: 02/18/22 56 years old female with past medical history of anxiety, PTSD, presents with altered mental status. She is a patient of Dr. Vizcarra. Patient was admitted in the ICU from the emergency room, patient could not provide information which were obtained from medical records and staff. per ems pt was recently at [place] for a blood infection. pt's last known well was last night at 10:30pm. pt found by family this evening altered. Patient was intubated in the emergency room Patient had a fever of 103 on admission, she is tachypneic 29-31, blood pressure 107/53 Labs reviewed on admission, WBC 8.7, low hemoglobin 6.9, low platelet 120, with thrombocytopenia which is mild ESR is elevated at 90, CRP elevated 8.9 PH normal 7.4, pCO2 normal at 37 INR 1.2 Sodium 132, potassium 3.2, creatinine 1.0. Liver enzymes are normal as well as bilirubin. Troponin is elevated at 0.37. ProBNP is elevated to 38,000 Urinalysis showing 3+ protein, large blood, RBC 127, WBC 27. Urine test is negative. Urine drug screen is positive for opioids EKG showing sinus tachycardia at [address]-T changes Chest x-ray: Acute pulmonary edema Computed tomography scan of the head and neck: Normal cervical spine with no fracture and normal CT of the brain by radiologist In the emergency room she received IV fluids with normal saline, vancomycin and ceftriaxone and ibuprofen and IV Tylenol, Dilaudid and lorazepam and succinylcholine Objective - Vital Signs Vital signs: Vital Signs Temp 100.3 F H 02/18/22 05:09 Pulse 98 02/18/22 05:09 Resp 12 02/18/22 05:09 BP 137/71 02/18/22 05:09 Pulse Ox 95 02/18/22 05:09 FiO2 100 02/18/22 12:09 Intake & Output 02/17/22 02/18/22 02/18/22 18:59 06:59 18:59 Intake Total 596 Output Total 240 1230 Balance -240 -634 Intake: IV 3 Blood Product 593 Rc As-1 Unit 310 [id number] Rc Pheresis 2 As3 Unit 283 [id number] Output: Urine 240 230 Estimated Blood Loss 1000 Other: Voiding Method Toilet # Voids 1 - Exam -GENERAL: The patient is awake and alert but tired HEENT: Pupils are round and equally reacting to light. EOMI. No scleral icterus. No conjunctival pallor. Normocephalic, atraumatic. No pharyngeal erythema. No thyromegaly. -CARDIOVASCULAR: S1 and S2 present. Systolic murmurs, rubs, or gallops. PULMONARY: Chest is clear to auscultation, no wheezing or crackles. ABDOMEN: Soft, nontender, nondistended, normoactive bowel sounds. No palpable organomegaly. MUSCULOSKELETAL: No joint swelling or deformity. EXTREMITIES: No cyanosis, clubbing, or pedal edema. NEUROLOGICAL: Gross neurological examination did not reveal any focal deficits. SKIN: No rashes. no petechiae. - Labs CBC & Chem 7: 02/18/22 17:25 02/18/22 17:25 Labs: Abnormal Lab Results - Last 24 Hours (Table) 02/17/22 02/17/22 02/18/22 Range/Units 06:59 06:59 06:42 RBC (3.80-5.40) m/uL Hgb (11.4-16.0) gm/dL Hct (34.0-46.0) % MCV (80.0-100.0) fL MCH (25.0-35.0) pg MCHC (31.0-37.0) g/dL RDW (11.5-15.5) % Plt Count (150-450) k/uL Lymphocytes # (1.0-4.8) k/uL POC Glucose (mg/dL) 118 H (70-110) mg/dL Vitamin D 25-Hydroxy 16.9 L (30.0-100.0) ng/mL Crossmatch See Detail 02/18/22 Range/Units 06:50 RBC 3.52 L (3.80-5.40) m/uL Hgb 8.2 L (11.4-16.0) gm/dL Hct 26.8 L (34.0-46.0) % MCV 76.1 L (80.0-100.0) fL MCH 23.1 L (25.0-35.0) pg MCHC 30.4 L (31.0-37.0) g/dL RDW 20.4 H (11.5-15.5) % Plt Count 82 L (150-450) k/uL Lymphocytes # 0.3 L (1.0-4.8) k/uL POC Glucose (mg/dL) (70-110) mg/dL Vitamin D 25-Hydroxy (30.0-100.0) ng/mL Crossmatch Microbiology - Last 24 Hours (Table) 02/16/22 15:33 Nasal Screen MRSA/MSSA - Final Nasal Swab 02/11/22 12:12 Blood Culture - Final Blood No Growth after 144 hours 02/11/22 12:23 Blood Culture - Final Blood No Growth after 144 hours Assessment and Plan Assessment: Subacute bacterial endocarditis Severe aortic regurgitation secondary to above Sepsis with fever and tachypnea, resolved Acute hypoxic respiratory failure requiring intubation and mechanical venti lation, she got extubated on 02/28, resolved Metabolic encephalopathy Acute pulmonary edema, could be acute CHF versus RDS Severe anemia, microcytic hyperchromic requiring blood transfusion 4 Elevated troponin Plan: This is a pleasant 56 years old female who presents with AMS, on mechanical ventilation, anemia Continue with antibiotics as per ID team, currently on cefepime Keep follow-up and repeat blood culture, negative so far Cardiothoracic surgery team of the case, and the planned for aortic valve replacement Several consultants on the case including infectious disease, pulmonary/critical care, cardiology, cardiothoracic surgery IV fluids were stopped labs and medication were reviewed.. Continue same treatment. Continue with symptomatic treatment. Resume home medication. Monitor lytes and vitals. DVT and GI prophylaxis. Further recommendations as per clinical course of the patient DVT prophylaxis: She received aspirin and heparin today GI Prophylaxis: Ppi
[2022-02-18 19:43] LABS: ABG Base Excess -0.9 mmol/L; ABG HCO3 24 mmol/L (21-25); ABG Oxygen Saturation 99.8 % (94-97); ABG PCO2 37 mmHg (35-45); ABG PH 7.42 (7.35-7.45); ABG PO2 176 mmHg (83-108); ABG TCO2 25 mmol/L (19-24); Allen Test Performed? Yes
[2022-02-18 19:58] LABS: Glucose,Whole Blood 117 mg/dL (70-110)
[2022-02-18] MEDS: CLEVIDIPINE BUTYRATE 25 MG in EMPTY BAG 1 BAG IV SCH (20:24)
[2022-02-18 20:50] LABS: Glucose,Whole Blood 114 mg/dL (70-110)
--- NOTE | 2022-02-18 21:37 | XR ---
EXAMINATION TYPE: XR chest 1V portable DATE OF EXAM: 02/18/2022 COMPARISON: 02/18/2022 HISTORY: Postop TECHNIQUE: FINDINGS: There is endotracheal tube 4.5 cm from the awais. There is nasogastric tube in the stomach . There is right jugular catheter with tip in the main pulmonary artery. There is infiltrate and pleu ral fluid in the right lower lobe. There is some mild atelectasis left lung base. There is chest tube over the left upper lobe. No pneumothorax. There is a drain over the heart. No heart failure seen. IMPRESSION: Right lower lobe infiltrate and pleural effusion is the same or slightly worse than exam 5 hours ago. There is some mild atelectasis left lung base without change.
[2022-02-18 21:50] LABS: Glucose,Whole Blood 131 mg/dL (70-110)
[2022-02-18 22:10] LABS: Anisocytosis Slight; Hypochromasia Moderate; MCH 26.6 pg (25.0-35.0); MCHC 32.8 g/dL (31.0-37.0); MCV 81.2 fL (80.0-100.0); Microcytosis Slight; Poikilocytosis Moderate; RBC 2.33 m/uL (3.80-5.40); RDW 18.8 % (11.5-15.5); WBC 4.2 k/uL (3.8-10.6)
[2022-02-18 22:15] LABS: HCT 18.9 % (34.0-46.0); HGB 6.2 gm/dL (11.4-16.0); Platelet Count 77 k/uL (150-450)
--- NOTE | 2022-02-18 22:23 | P.PN ---
Subjective Progress Note Date: 02/18/22 Principal diagnosis: Gram-negative bacteremia and aortic valve endocarditis Patient is a 36 year female presenting to the hospital with acute respiratory failure in this patient to have evidence of gram-negative bacteremia and there was concern for vegetation on the aortic valve , patient did have extension of the infected tooth and colonoscopy as a part of preparation for the aortic valve replacement which was completed 02/18/2022 on today's evaluation that is 02/18/2022, ,The patient remains to be afebrile, the patient is hemodynamically stable the patient is currently on the vent no significant purulent secretion through the ET diarrhea or any other changes reported by nursing staff Objective - Vital Signs Vital signs: Vital Signs Temp 100.3 F H 02/18/22 05:09 Pulse 90 02/18/22 13:50 Resp 10 L 02/18/22 13:20 BP 137/71 02/18/22 05:09 Pulse Ox 98 02/18/22 13:50 FiO2 40 02/18/22 13:24 Intake & Output 02/17/22 02/18/22 02/18/22 18:59 06:59 18:59 Intake Total 859 Output Total 240 1230 Balance -240 -371 Weight 73.6 kg Intake: IV 3 Blood Product 856 Unit 0 Platelet Pheresis Pas 263 Psoralen Unit [id number] Rc As-1 Unit 310 [id number] Rc Pheresis 2 As3 Unit 283 [id number] Output: Urine 240 230 Estimated Blood Loss 1000 Other: Voiding Method Toilet # Voids 1 ABP, PAP, CO, CI - Last Documented Arterial Blood Pressure 84/45 Pulmonary Artery Pressure 24/16 Cardiac Output 7.7 Cardiac Index 4.2 - Exam GENERAL DESCRIPTION: Middle-aged female intubated on the vent RESPIRATORY SYSTEM: Unlabored breathing , decreased breath sounds at bases HEART: S1 S2 regular rate and rhythm , ABDOMEN: Soft , no tenderness EXTREMITIES: No edema feet - Labs CBC & Chem 7: 02/18/22 21:48 02/18/22 17:25 Labs: Abnormal Lab Results - Last 24 Hours (Table) 02/17/22 02/17/22 02/18/22 Range/Units 06:59 06:59 06:42 RBC (3.80-5.40) m/uL Hgb (11.4-16.0) gm/dL Hct (34.0-46.0) % MCV (80.0-100.0) fL MCH (25.0-35.0) pg MCHC (31.0-37.0) g/dL RDW (11.5-15.5) % Plt Count (150-450) k/uL Lymphocytes # (1.0-4.8) k/uL PT (9.0-12.0) sec INR (<1.2) APTT (22.0-30.0) sec ABG pH (7.35-7.45) ABG pCO2 (35-45) mmHg ABG pO2 (83-108) mmHg ABG O2 Saturation (94-97) % ABG Hematocrit (34.0-46.0) % ABG Potassium (3.4-4.5) mmol/L ABG Ionized Calcium (4.5-5.3) mg/dL ABG Glucose (75-99) mg/dL ABG Lactic Acid (0.5-1.6) mmol/L Hemoglobin (11.4-16.0) gm/dL Chloride (98-107) mmol/L BUN (7-17) mg/dL Glucose (74-99) mg/dL POC Glucose (mg/dL) 118 H (70-110) mg/dL Calcium (8.4-10.2) mg/dL Magnesium (1.6-2.3) mg/dL Total Protein (6.3-8.2) g/dL Albumin (3.5-5.0) g/dL Vitamin D 25-Hydroxy 16.9 L (30.0-100.0) ng/mL Arterial Blood Potassium (3.4-4.5) mmol/L Arterial Blood Glucose (75-99) mg/dL Crossmatch See Detail 02/18/22 02/18/22 02/18/22 Range/Units 06:50 08:39 09:13 RBC 3.52 L (3.80-5.40) m/uL Hgb 8.2 L (11.4-16.0) gm/dL Hct 26.8 L (34.0-46.0) % MCV 76.1 L (80.0-100.0) fL MCH 23.1 L (25.0-35.0) pg MCHC 30.4 L (31.0-37.0) g/dL RDW 20.4 H (11.5-15.5) % Plt Count 82 L (150-450) k/uL Lymphocytes # 0.3 L (1.0-4.8) k/uL PT (9.0-12.0) sec INR (<1.2) APTT (22.0-30.0) sec ABG pH (7.35-7.45) ABG pCO2 34 L (35-45) mmHg ABG pO2 195 H 357 H (83-108) mmHg ABG O2 Saturation 99.6 H 100.0 H (94-97) % ABG Hematocrit 19 L* 19 L* (34.0-46.0) % ABG Potassium 3.3 L (3.4-4.5) mmol/L ABG Ionized Calcium 4.4 L 4.4 L (4.5-5.3) mg/dL ABG Glucose 113 H 129 H (75-99) mg/dL ABG Lactic Acid 0.4 L (0.5-1.6) mmol/L Hemoglobin 6.2 L* 6.2 L* (11.4-16.0) gm/dL Chloride (98-107) mmol/L BUN (7-17) mg/dL Glucose (74-99) mg/dL POC Glucose (mg/dL) (70-110) mg/dL Calcium (8.4-10.2) mg/dL Magnesium (1.6-2.3) mg/dL Total Protein (6.3-8.2) g/dL Albumin (3.5-5.0) g/dL Vitamin D 25-Hydroxy (30.0-100.0) ng/mL Arterial Blood Potassium 3.3 L (3.4-4.5) mmol/L Arterial Blood Glucose 113 H 129 H (75-99) mg/dL Crossmatch 02/18/22 02/18/22 02/18/22 Range/Units 09:28 10:03 10:32 RBC (3.80-5.40) m/uL Hgb (11.4-16.0) gm/dL Hct (34.0-46.0) % MCV (80.0-100.0) fL MCH (25.0-35.0) pg MCHC (31.0-37.0) g/dL RDW (11.5-15.5) % Plt Count (150-450) k/uL Lymphocytes # (1.0-4.8) k/uL PT (9.0-12.0) sec INR (<1.2) APTT (22.0-30.0) sec ABG pH 7.26 L 7.33 L (7.35-7.45) ABG pCO2 32 L 49 H (35-45) mmHg ABG pO2 368 H 209 H 279 H (83-108) mmHg ABG O2 Saturation 100.0 H 99.4 H 99.7 H (94-97) % ABG Hematocrit 21 L 23 L 26 L (34.0-46.0) % ABG Potassium (3.4-4.5) mmol/L ABG Ionized Calcium 3.7 L 4.4 L 4.3 L (4.5-5.3) mg/dL ABG Glucose 138 H 151 H 148 H (75-99) mg/dL ABG Lactic Acid (0.5-1.6) mmol/L Hemoglobin 6.7 L* 7.4 L 8.6 L (11.4-16.0) gm/dL Chloride (98-107) mmol/L BUN (7-17) mg/dL Glucose (74-99) mg/dL POC Glucose (mg/dL) (70-110) mg/dL Calcium (8.4-10.2) mg/dL Magnesium (1.6-2.3) mg/dL Total Protein (6.3-8.2) g/dL Albumin (3.5-5.0) g/dL Vitamin D 25-Hydroxy (30.0-100.0) ng/mL Arterial Blood Potassium (3.4-4.5) mmol/L Arterial Blood Glucose 138 H 151 H 148 H (75-99) mg/dL Crossmatch 02/18/22 02/18/22 02/18/22 Range/Units 11:18 11:51 12:51 RBC 2.95 L (3.80-5.40) m/uL Hgb 7.4 L (11.4-16.0) gm/dL Hct 23.0 L (34.0-46.0) % MCV 77.9 L (80.0-100.0) fL MCH 24.9 L (25.0-35.0) pg MCHC (31.0-37.0) g/dL RDW 20.4 H (11.5-15.5) % Plt Count 76 L (150-450) k/uL Lymphocytes # 0.3 L (1.0-4.8) k/uL PT (9.0-12.0) sec INR (<1.2) APTT (22.0-30.0) sec ABG pH (7.35-7.45) ABG pCO2 (35-45) mmHg ABG pO2 274 H 301 H (83-108) mmHg ABG O2 Saturation 100.0 H 99.8 H (94-97) % ABG Hematocrit 23 L 23 L (34.0-46.0) % ABG Potassium (3.4-4.5) mmol/L ABG Ionized Calcium (4.5-5.3) mg/dL ABG Glucose 168 H 163 H (75-99) mg/dL ABG Lactic Acid (0.5-1.6) mmol/L Hemoglobin 7.5 L 7.5 L (11.4-16.0) gm/dL Chloride (98-107) mmol/L BUN (7-17) mg/dL Glucose (74-99) mg/dL POC Glucose (mg/dL) (70-110) mg/dL Calcium (8.4-10.2) mg/dL Magnesium (1.6-2.3) mg/dL Total Protein (6.3-8.2) g/dL Albumin (3.5-5.0) g/dL Vitamin D 25-Hydroxy (30.0-100.0) ng/mL Arterial Blood Potassium (3.4-4.5) mmol/L Arterial Blood Glucose 168 H 163 H (75-99) mg/dL Crossmatch 02/18/22 02/18/22 02/18/22 Range/Units 12:51 12:51 13:21 RBC (3.80-5.40) m/uL Hgb (11.4-16.0) gm/dL Hct (34.0-46.0) % MCV (80.0-100.0) fL MCH (25.0-35.0) pg MCHC (31.0-37.0) g/dL RDW (11.5-15.5) % Plt Count (150-450) k/uL Lymphocytes # (1.0-4.8) k/uL PT 12.6 H (9.0-12.0) sec INR 1.2 H (<1.2) APTT 33.1 H (22.0-30.0) sec ABG pH (7.35-7.45) ABG pCO2 (35-45) mmHg ABG pO2 >400 H (83-108) mmHg ABG O2 Saturation 100.0 H (94-97) % ABG Hematocrit (34.0-46.0) % ABG Potassium (3.4-4.5) mmol/L ABG Ionized Calcium (4.5-5.3) mg/dL ABG Glucose (75-99) mg/dL ABG Lactic Acid (0.5-1.6) mmol/L Hemoglobin (11.4-16.0) gm/dL Chloride 109 H (98-107) mmol/L BUN 18 H (7-17) mg/dL Glucose 168 H (74-99) mg/dL POC Glucose (mg/dL) (70-110) mg/dL Calcium 7.3 L (8.4-10.2) mg/dL Magnesium 4.2 H (1.6-2.3) mg/dL Total Protein 4.3 L (6.3-8.2) g/dL Albumin 1.8 L (3.5-5.0) g/dL Vitamin D 25-Hydroxy (30.0-100.0) ng/mL Arterial Blood Potassium (3.4-4.5) mmol/L Arterial Blood Glucose (75-99) mg/dL Crossmatch 02/18/22 Range/Units 13:23 RBC (3.80-5.40) m/uL Hgb (11.4-16.0) gm/dL Hct (34.0-46.0) % MCV (80.0-100.0) fL MCH (25.0-35.0) pg MCHC (31.0-37.0) g/dL RDW (11.5-15.5) % Plt Count (150-450) k/uL Lymphocytes # (1.0-4.8) k/uL PT (9.0-12.0) sec INR (<1.2) APTT (22.0-30.0) sec ABG pH (7.35-7.45) ABG pCO2 (35-45) mmHg ABG pO2 (83-108) mmHg ABG O2 Saturation (94-97) % ABG Hematocrit (34.0-46.0) % ABG Potassium (3.4-4.5) mmol/L ABG Ionized Calcium (4.5-5.3) mg/dL ABG Glucose (75-99) mg/dL ABG Lactic Acid (0.5-1.6) mmol/L Hemoglobin (11.4-16.0) gm/dL Chloride (98-107) mmol/L BUN (7-17) mg/dL Glucose (74-99) mg/dL POC Glucose (mg/dL) 163 H (70-110) mg/dL Calcium (8.4-10.2) mg/dL Magnesium (1.6-2.3) mg/dL Total Protein (6.3-8.2) g/dL Albumin (3.5-5.0) g/dL Vitamin D 25-Hydroxy (30.0-100.0) ng/mL Arterial Blood Potassium (3.4-4.5) mmol/L Arterial Blood Glucose (75-99) mg/dL Crossmatch Microbiology - Last 24 Hours (Table) 02/16/22 15:33 Nasal Screen MRSA/MSSA - Final Nasal Swab 02/11/22 12:12 Blood Culture - Final Blood No Growth after 144 hours 02/11/22 12:23 Blood Culture - Final Blood No Growth after 144 hours Assessment and Plan (1) Sepsis Current Visit: Yes Status: Acute Code(s): A41.9 - SEPSIS, UNSPECIFIED ORGANISM SNOMED Code(s): 44628267 Plan: 1patient presented to hospital with sepsis in this patient did have a fever tachycardia tachypnea with evidence of vegetation on aortic wall likely secondary to endocarditis, blood culture has been finalized and Serratia from her repeat blood culture had been negative as 2 patient to continue with cefepime with a plan for at least 6 weeks of IV antibiotic therapy, and monitor clinical course closely Time with Patient: Less than 30
[2022-02-18] MEDS ORDERED: HYDROcodone/APAP 5-325MG 1 EACH TAB PO PRN (22:47)
[2022-02-18 22:58] LABS: Glucose,Whole Blood 130 mg/dL (70-110)
[2022-02-18 23:51] LABS: Glucose,Whole Blood 125 mg/dL (70-110)
[2022-02-19 00:54] LABS: Glucose,Whole Blood 124 mg/dL (70-110)
[2022-02-19] MEDS: HYDROcodone/APAP 5-325MG 1 EACH TAB PO PRN ×6 (00:58→20:32)
[2022-02-19 02:03] LABS: Glucose,Whole Blood 120 mg/dL (70-110)
[2022-02-19] MEDS: DEXMEDETOMIDINE/0.9% NACL(PMX) 400 MCG in EMPTY BAG 1 BAG IV SCH ×2 (02:17→12:28)
[2022-02-19 02:54] LABS: Glucose,Whole Blood 117 mg/dL (70-110)
[2022-02-19 03:40] LABS: Anisocytosis Slight; Basophils % (A) 0 %; Eosinophils % (A) 1 %; Hypochromasia Moderate; Lymphocytes # (A) 0.4 k/uL (1.0-4.8); Lymphocytes % (A) 11 %; MCH 26.9 pg (25.0-35.0); MCV 81.6 fL (80.0-100.0); Mean Platelet Volume 9.8; Microcytosis Slight; Monocytes # (A) 0.2 k/uL (0-1.0); Monocytes % (A) 7 %; Neutrophils # (A) 2.6 k/uL (1.3-7.7); Neutrophils % (A) 78 %; Poikilocytosis Moderate; RDW 18.4 % (11.5-15.5); WBC 3.4 k/uL (3.8-10.6)
[2022-02-19 03:45] LABS: HCT 19.6 % (34.0-46.0); HGB 6.5 gm/dL (11.4-16.0); Platelet Count 83 k/uL (150-450)
[2022-02-19 04:13] LABS: Glucose,Whole Blood 114 mg/dL (70-110)
[2022-02-19] MEDS ORDERED: CALCIUM CHLORIDE 1 GM in SODIUM CHLORIDE 0.9% 50 ML IVPB ONE (04:15)
[2022-02-19 04:32] LABS: Ionized Calcium 4.5 mg/dL (4.5-5.3)
[2022-02-19 04:39] LABS: Albumin 1.8 g/dL (3.5-5.0); Magnesium 3.3 mg/dL (1.6-2.3); Potassium 4.2 mmol/L (3.5-5.1); Total Bilirubin 0.6 mg/dL (0.2-1.3); Total Protein 3.9 g/dL (6.3-8.2)
[2022-02-19 05:07] LABS: Glucose,Whole Blood 120 mg/dL (70-110)
[2022-02-19 05:44] LABS: ABG HCO3 22 mmol/L (21-25); ABG Oxygen Saturation 99.2 % (94-97); ABG PCO2 37 mmHg (35-45); ABG PH 7.38 (7.35-7.45); ABG PO2 128 mmHg (83-108); ABG TCO2 23 mmol/L (19-24); Allen Test Performed? Yes
--- NOTE | 2022-02-19 05:56 | XR ---
EXAMINATION TYPE: XR chest 1V portable DATE OF EXAM: 02/19/2022 COMPARISON: Yesterday HISTORY: Cardiac surgery TECHNIQUE: FINDINGS: Heart is enlarged. There is blunting of the costophrenic angles and more on the right side there is l eft-sided chest tube no pneumothorax trachea is midline. The endotracheal tube is 4 cm from the martine a. There is right jugular catheter with tip in the main pulmonary artery. There is nasogastric tube i n the stomach. There is a drain over the heart. IMPRESSION: Pleural effusions mainly on the right side and no significant change compared to yesterda y. Right lower lobe infiltrate. No obvious heart failure.
[2022-02-19 06:10] LABS: Glucose,Whole Blood 123 mg/dL (70-110)
[2022-02-19 06:53] LABS: Glucose,Whole Blood 123 mg/dL (70-110)
[2022-02-19] MEDS ORDERED: CALCIUM GLUCONATE IN NACL 2 GM in SALINE 1 100ML.BAG IVPB ONE ×2 (07:06→10:46)
[2022-02-19] MEDS: CEFEPIME 2 GM in SODIUM CHLORIDE 0.9% 100 ML IVPB SCH ×2 (07:41→16:38)
[2022-02-19] MEDS: IPRATROPIUM-ALBUTEROL 3 ML NEB INHALATION SCH ×4 (07:47→19:29)
[2022-02-19 07:50] LABS: Glucose,Whole Blood 112 mg/dL (70-110)
[2022-02-19] MEDS: ATORVASTATIN 40 MG TAB PO SCH (08:31)
[2022-02-19] MEDS: LACTATED RINGERS 1,000 ML IV SCH (08:33)
[2022-02-19 09:00] LABS: Glucose,Whole Blood 115 mg/dL (70-110)
[2022-02-19] MEDS ORDERED: MAGNESIUM HYDROXIDE 2,400 MG/10 ML CUP PO PRN (09:00)
[2022-02-19] MEDS ORDERED: PANTOPRAZOLE 40 MG/10 ML VIAL IVP SCH (09:00)
[2022-02-19] MEDS ORDERED: bisacodyL 10 MG SUPP RECTAL PRN (09:00)
[2022-02-19 09:14] LABS: Anisocytosis Slight; HCT 22.8 % (34.0-46.0); HGB 7.6 gm/dL (11.4-16.0); Hypochromasia Moderate; MCH 27.7 pg (25.0-35.0); MCHC 33.4 g/dL (31.0-37.0); MCV 82.9 fL (80.0-100.0); Mean Platelet Volume 10.4; Microcytosis Slight; Platelet Count 100 k/uL (150-450); Poikilocytosis Moderate; RBC 2.75 m/uL (3.80-5.40); RDW 18.3 % (11.5-15.5); WBC 4.9 k/uL (3.8-10.6)
[2022-02-19] MEDS ORDERED: LIDOCAINE 1% INJ 10MG/ML (20 ML MDV) ONE (09:21)
--- NOTE | 2022-02-19 09:43 | P.PN ---
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 Past medical history significant for bacteremia with blood cultures from [facility] positive for Serratia marcescens, recent history of colitis and splenomegaly likely splenic infarct, anxiety, PTSD with history of self mutilation. POD #1 Aortic valve replacement with 23 mm On-X mechanical aortic valve, patch closure of aortotomy with involving pericardium, debridement of some annular infected tissue in aortic outflow tract, ligation of left atrial appendage with 35 mm AtriCure clip. Postoperative acute blood loss anemia and thrombocytopenia, expected given her preop anemia, hemodilution and cardiopulmonary bypass. The patient was seen and examined in follow-up today 02/19/2022 at her bedside in intensive care unit. Currently the patient remains intubated with mechanical ventilator support and sedated on propofol and Precedex drips. She is following some verbal commands appropriately nodding her head yes and no appropriately to verbal questions and moving all 4 extremities appropriately with verbal stimuli. Current mechanical ventilator settings are assist control 14, TV 500, FiO2 35% and a PEEP of 5. Oxygen saturations on current mechanical ventilator settings are 99%. She remains hemodynamically stable and is currently on no inotropic or pressor support. Right IJ cordis and Inkom-Rajni catheter remains in place with current hemodynamic showing a cardiac output of 5.9, cardiac index 3.2, PA pressures 33/19 and CVP 14 mmHg. She is currently receiving 1 unit of packed red blood cells for a hemoglobin of 6.5. Mediastinal, left and right pleural chest tubes remain in place to low continuous wall suction -20 cm H2O. No air leak is present. Left pleural chest tube drained 130 mL of thin serosanguineous drainage in the last 8 hours and 450 mL of drainage since surgery. Mediastinal chest tube drained 10 mL of thin serosanguineous drainage in the last 8 hours and 1850 mL of drainage since surgery. Right pleural chest tube drained 240 mL output of thin serosanguineous drainage in the last 8 hours and 750 mL of drainage since surgery. Jefferson catheter remains in place with 230 mL of urine output in the last 8 hours. Bedside telemetry showing normal sinus rhythm heart rate 67 BPM. Current blood pressure is 91/46 with a map of 63 mmHg. Chest x- ray this morning continues to show a pleural effusion on the right side with no significant change compared to yesterday's chest x-ray. ABG results this morning show a pH of 7.38, pCO2 37, pO2 128, HCO3 22, oxygen saturation 99.2 and base excess -3.0. Objective - Vital Signs Vital signs: Vital Signs Temp 98.2 F 02/19/22 08:00 Pulse 71 02/19/22 08:00 Resp 17 02/19/22 08:00 BP 95/44 02/19/22 07:07 Pulse Ox 99 02/19/22 08:00 FiO2 35 02/19/22 08:00 Intake & Output 02/18/22 02/19/22 02/19/22 18:59 06:59 18:59 Intake Total 4873.784 2332.659 465.281 Output Total 3790 1310 65 Balance 4538.731 5091.659 400.281 Weight 73.6 kg 78 kg Intake: IV 193 1033 79 CO/CI 260 20 Cefepime 2 gm In Sodium 100 50 Chloride 0.9% 100 ml @ 25 mls/hr IVPB Q8HR [facility] Rx# :[id number] Lactated Ringers 1,000 ml 600 50 @ 50 mls/hr IV .Q20H [facility] Rx#:[id number] NS Pressure Tubing 90 123 9 Intake, IV Titration 2307.784 284.659 107.281 Amount ACETAMINOPHEN IV (For NPO 800 ) 1,000 mg In Empty Bag 1 bag @ 400 mls/hr IVPB Q6HR [facility] Rx#:[id number] Albumin Human 5% 250 ml 750 In Empty Bag 1 bag @ 250 mls/hr IVPB Q1HR PRN Rx#: [id number] Calcium Chloride 1 gm In 50 Sodium Chloride 0.9% 50 ml @ 50 mls/hr IVPB ONCE ONE Rx#:[id number] Calcium Gluconate in NaCl 100 2 gm In Saline 1 100ml. bag @ 100 mls/hr IVPB ONCE PRN Rx#:[id number] Dexmedetomidine/0.9% NaCl 58.175 (Pmx) 400 mcg In Empty Bag 1 bag @ 0.2 MCG/KG/HR 3.68 mls/hr IV .Q24H [facility] Rx#:[id number] Empty Bag 1 bag @ 3 UNIT/ 60 KG/MIN 481.745 mls/hr IV .Q8M ONE with Human Prothrombin Complx 1,650 unit Rx#:[id number] Insulin Regular 100 unit 10.200 11.657 1.591 In Sodium Chloride 0.9% 100 ml @ Per Protocol IV .Q0M [facility] Rx#:[id number] Lactated Ringers 1,000 ml 250 50 @ 50 mls/hr IV .Q20H [facility] Rx#:[id number] Potassium Chloride 10 meq 200 In Water For Injection 1 100ml.bag @ 100 mls/hr IVPB Q1H [facility] Rx#: [id number] propofoL 1,000 mg In 87.584 164.827 105.690 Empty Bag 1 bag @ Titrate IV .Q0M [facility] Rx#: [id number] Tube Feeding 30 Blood Product 2343 975 279 Ffp 24 Cpd Unit 299 [id number] Ffp 24 Cpda Unit 231 [id number] Platelet Pheresis Pas 263 Psoralen Unit [id number] Platelet Pheresis Pas 347 Psoralen Unit [id number] Platelet Pheresis Pas 337 Psoralen Unit [id number] Pooled Cryoprecipitate 65 Unit [id number] Rc As-1 Unit 310 [id number] Rc As-1 Unit 310 [id number] Rc As-1 Unit 310 [id number] Rc Pheresis 2 As3 Unit 283 [id number] Rc Pheresis 2 As3 Unit 0 276 [id number] Rc Pheresis 2 As3 Unit 287 [id number] Rc Pheresis As-3 Unit 0 279 [id number] Other 40 Output: Chest Tube Drainage 2280 960 40 Chest Tube Left Pleural/ 220 250 10 Mediastinal Chest Tube Mediastinal 1850 140 10 Chest Tube Right Right 210 570 20 Pleural/Mediastinal Urine 510 350 25 Estimated Blood Loss 1000 Other: Voiding Method Indwelling Catheter Indwelling Catheter Indwelling Catheter ABP, PAP, CO, CI - Last Documented Arterial Blood Pressure 104/47 Pulmonary Artery Pressure 34/22 Cardiac Output 4.5 Cardiac Index 2.4 - Exam CONSTITUTIONAL: Laying in bed in the intensive care unit, remains intubated with mechanical ventilator support, is sedated on propofol and Precedex drips, appears comfortable, cooperative, no apparent acute distress. HEENT: Neck is supple, no JVD, no lymphadenopathy. Right IJ Cordis and Inkom- Rajni catheter in place and functioning. RESPIRATORY: Lungs sounds essentially clear throughout, with few scattered rhonchi, diminished to his bilateral bases right greater than left. Respirations are symmetrical and nonlabored with mechanical ventilator. Currently oxygen saturations 99% with mechanical ventilator settings assist control 14, TV 500, FiO2 35% and PEEP of 5. CARDIOVASCULAR: Regular rhythm and rate. S1 and S2 present with mechanical valvular click, negative for S3, gallop or murmur. Sternum is stable. Palpable peripheral pulses bilaterally, no edema to her bilateral lower extremi ties. No calf pain or tenderness noted. Heart hugger in place. Knee-high DAVI hose and sequential compression devices in place to her bilateral lower extremities. GASTROINTESTINAL: Abdomen soft, nontender, nondistended. Hypoactive bowel sounds present 4 quadrants. Tolerating diet. No guarding or rigidity. OG tube in place to low continuous wall suction. GENITOURINARY: Jefferson present draining clear, yellow urine. Urine output 230 mL in the last 8 hours. INTEGUMENTARY: Skin is warm and dry with no evidence of clubbing or cyanosis. Midline sternal incision clean dry and well approximated, covered with dry intact dressing. NEUROLOGIC: Cranial nerves II through XII intact. No focal deficits. MUSKULOSKELETAL: Able to move all extremities, strength equal bilaterally. PSYCHIATRIC: Unable to accurately assess at this time as the patient remains intubated with mechanical ventilator support and is currently sedated on propofol and Precedex drips. INVASIVE LINES AND TUBES: Mediastinal/left/right pleural chest tubes present and connected to low continuous wall suction, no air leaks present. Mediastinal tube with 10 mL of thin serosanguineous drainage overnight, 1850 mL output since surgery. Left pleural chest tube with 130 mL of thin serosanguineous drainage overnight, 450 mL output since surgery. Right pleural chest tube with 240 mL of thin serosanguineous drainage overnight, 750 mL output since surgery. Atrial and ventricular epicardial pacemaker wires present, connected to generator, VVI backup rate 50 bpm. Right internal jugular Inkom/Cordis, right radial arterial line present. Last CO 5.9, CI 3.2, PA 33/19 and CVP 14 mmHg. - Allied health notes Allied health notes reviewed: nursing - Labs CBC & Chem 7: 02/19/22 02:50 02/19/22 04:05 Labs: Abnormal Lab Results - Last 24 Hours (Table) 02/17/22 02/18/22 02/18/22 Range/Units 06:59 08:39 09:13 WBC (3.8-10.6) k/uL RBC (3.80-5.40) m/uL Hgb (11.4-16.0) gm/dL Hct (34.0-46.0) % MCV (80.0-100.0) fL MCH (25.0-35.0) pg RDW (11.5-15.5) % Plt Count (150-450) k/uL Lymphocytes # (1.0-4.8) k/uL PT (9.0-12.0) sec INR (<1.2) APTT (22.0-30.0) sec ABG pH (7.35-7.45) ABG pCO2 34 L (35-45) mmHg ABG pO2 195 H 357 H (83-108) mmHg ABG Total CO2 (19-24) mmol/L ABG O2 Saturation 99.6 H 100.0 H (94-97) % ABG Hematocrit 19 L* 19 L* (34.0-46.0) % ABG Potassium 3.3 L (3.4-4.5) mmol/L ABG Ionized Calcium 4.4 L 4.4 L (4.5-5.3) mg/dL ABG Glucose 113 H 129 H (75-99) mg/dL ABG Lactic Acid 0.4 L (0.5-1.6) mmol/L Hemoglobin 6.2 L* 6.2 L* (11.4-16.0) gm/dL Chloride (98-107) mmol/L Carbon Dioxide (22-30) mmol/L BUN (7-17) mg/dL Creatinine (0.52-1.04) mg/dL Glucose (74-99) mg/dL POC Glucose (mg/dL) (70-110) mg/dL Calcium (8.4-10.2) mg/dL Magnesium (1.6-2.3) mg/dL Total Bilirubin (0.2-1.3) mg/dL Alkaline Phosphatase (38-126) U/L Total Protein (6.3-8.2) g/dL Albumin (3.5-5.0) g/dL Arterial Blood Potassium 3.3 L (3.4-4.5) mmol/L Arterial Blood Glucose 113 H 129 H (75-99) mg/dL Crossmatch See Detail 02/18/22 02/18/22 02/18/22 Range/Units 09:28 10:03 10:32 WBC (3.8-10.6) k/uL RBC (3.80-5.40) m/uL Hgb (11.4-16.0) gm/dL Hct (34.0-46.0) % MCV (80.0-100.0) fL MCH (25.0-35.0) pg RDW (11.5-15.5) % Plt Count (150-450) k/uL Lymphocytes # (1.0-4.8) k/uL PT (9.0-12.0) sec INR (<1.2) APTT (22.0-30.0) sec ABG pH 7.26 L 7.33 L (7.35-7.45) ABG pCO2 32 L 49 H (35-45) mmHg ABG pO2 368 H 209 H 279 H (83-108) mmHg ABG Total CO2 (19-24) mmol/L ABG O2 Saturation 100.0 H 99.4 H 99.7 H (94-97) % ABG Hematocrit 21 L 23 L 26 L (34.0-46.0) % ABG Potassium (3.4-4.5) mmol/L ABG Ionized Calcium 3.7 L 4.4 L 4.3 L (4.5-5.3) mg/dL ABG Glucose 138 H 151 H 148 H (75-99) mg/dL ABG Lactic Acid (0.5-1.6) mmol/L Hemoglobin 6.7 L* 7.4 L 8.6 L (11.4-16.0) gm/dL Chloride (98-107) mmol/L Carbon Dioxide (22-30) mmol/L BUN (7-17) mg/dL Creatinine (0.52-1.04) mg/dL Glucose (74-99) mg/dL POC Glucose (mg/dL) (70-110) mg/dL Calcium (8.4-10.2) mg/dL Magnesium (1.6-2.3) mg/dL Total Bilirubin (0.2-1.3) mg/dL Alkaline Phosphatase (38-126) U/L Total Protein (6.3-8.2) g/dL Albumin (3.5-5.0) g/dL Arterial Blood Potassium (3.4-4.5) mmol/L Arterial Blood Glucose 138 H 151 H 148 H (75-99) mg/dL Crossmatch 02/18/22 02/18/22 02/18/22 Range/Units 11:18 11:51 12:51 WBC (3.8-10.6) k/uL RBC 2.95 L (3.80-5.40) m/uL Hgb 7.4 L (11.4-16.0) gm/dL Hct 23.0 L (34.0-46.0) % MCV 77.9 L (80.0-100.0) fL MCH 24.9 L (25.0-35.0) pg RDW 20.4 H (11.5-15.5) % Plt Count 76 L (150-450) k/uL Lymphocytes # 0.3 L (1.0-4.8) k/uL PT (9.0-12.0) sec INR (<1.2) APTT (22.0-30.0) sec ABG pH (7.35-7.45) ABG pCO2 (35-45) mmHg ABG pO2 274 H 301 H (83-108) mmHg ABG Total CO2 (19-24) mmol/L ABG O2 Saturation 100.0 H 99.8 H (94-97) % ABG Hematocrit 23 L 23 L (34.0-46.0) % ABG Potassium (3.4-4.5) mmol/L ABG Ionized Calcium (4.5-5.3) mg/dL ABG Glucose 168 H 163 H (75-99) mg/dL ABG Lactic Acid (0.5-1.6) mmol/L Hemoglobin 7.5 L 7.5 L (11.4-16.0) gm/dL Chloride (98-107) mmol/L Carbon Dioxide (22-30) mmol/L BUN (7-17) mg/dL Creatinine (0.52-1.04) mg/dL Glucose (74-99) mg/dL POC Glucose (mg/dL) (70-110) mg/dL Calcium (8.4-10.2) mg/dL Magnesium (1.6-2.3) mg/dL Total Bilirubin (0.2-1.3) mg/dL Alkaline Phosphatase (38-126) U/L Total Protein (6.3-8.2) g/dL Albumin (3.5-5.0) g/dL Arterial Blood Potassium (3.4-4.5) mmol/L Arterial Blood Glucose 168 H 163 H (75-99) mg/dL Crossmatch 02/18/22 02/18/22 02/18/22 Range/Units 12:51 12:51 13:21 WBC (3.8-10.6) k/uL RBC (3.80-5.40) m/uL Hgb (11.4-16.0) gm/dL Hct (34.0-46.0) % MCV (80.0-100.0) fL MCH (25.0-35.0) pg RDW (11.5-15.5) % Plt Count (150-450) k/uL Lymphocytes # (1.0-4.8) k/uL PT 12.6 H (9.0-12.0) sec INR 1.2 H (<1.2) APTT 33.1 H (22.0-30.0) sec ABG pH (7.35-7.45) ABG pCO2 (35-45) mmHg ABG pO2 >400 H (83-108) mmHg ABG Total CO2 (19-24) mmol/L ABG O2 Saturation 100.0 H (94-97) % ABG Hematocrit (34.0-46.0) % ABG Potassium (3.4-4.5) mmol/L ABG Ionized Calcium (4.5-5.3) mg/dL ABG Glucose (75-99) mg/dL ABG Lactic Acid (0.5-1.6) mmol/L Hemoglobin (11.4-16.0) gm/dL Chloride 109 H (98-107) mmol/L Carbon Dioxide (22-30) mmol/L BUN 18 H (7-17) mg/dL Creatinine (0.52-1.04) mg/dL Glucose 168 H (74-99) mg/dL POC Glucose (mg/dL) (70-110) mg/dL Calcium 7.3 L (8.4-10.2) mg/dL Magnesium 4.2 H (1.6-2.3) mg/dL Total Bilirubin (0.2-1.3) mg/dL Alkaline Phosphatase (38-126) U/L Total Protein 4.3 L (6.3-8.2) g/dL Albumin 1.8 L (3.5-5.0) g/dL Arterial Blood Potassium (3.4-4.5) mmol/L Arterial Blood Glucose (75-99) mg/dL Crossmatch 02/18/22 02/18/22 02/18/22 Range/Units 13:23 14:55 15:06 WBC (3.8-10.6) k/uL RBC 2.27 L (3.80-5.40) m/uL Hgb 5.7 L* D (11.4-16.0) gm/dL Hct 17.8 L* (34.0-46.0) % MCV 78.2 L (80.0-100.0) fL MCH (25.0-35.0) pg RDW 20.3 H (11.5-15.5) % Plt Count 77 L (150-450) k/uL Lymphocytes # (1.0-4.8) k/uL PT (9.0-12.0) sec INR (<1.2) APTT (22.0-30.0) sec ABG pH (7.35-7.45) ABG pCO2 (35-45) mmHg ABG pO2 (83-108) mmHg ABG Total CO2 (19-24) mmol/L ABG O2 Saturation (94-97) % ABG Hematocrit (34.0-46.0) % ABG Potassium (3.4-4.5) mmol/L ABG Ionized Calcium (4.5-5.3) mg/dL ABG Glucose (75-99) mg/dL ABG Lactic Acid (0.5-1.6) mmol/L Hemoglobin (11.4-16.0) gm/dL Chloride (98-107) mmol/L Carbon Dioxide (22-30) mmol/L BUN (7-17) mg/dL Creatinine (0.52-1.04) mg/dL Glucose (74-99) mg/dL POC Glucose (mg/dL) 163 H 171 H (70-110) mg/dL Calcium (8.4-10.2) mg/dL Magnesium (1.6-2.3) mg/dL Total Bilirubin (0.2-1.3) mg/dL Alkaline Phosphatase (38-126) U/L Total Protein (6.3-8.2) g/dL Albumin (3.5-5.0) g/dL Arterial Blood Potassium (3.4-4.5) mmol/L Arterial Blood Glucose (75-99) mg/dL Crossmatch 02/18/22 02/18/22 02/18/22 Range/Units 16:21 17:24 17:25 WBC (3.8-10.6) k/uL RBC 2.80 L (3.80-5.40) m/uL Hgb 7.0 L (11.4-16.0) gm/dL Hct 22.3 L (34.0-46.0) % MCV 79.6 L (80.0-100.0) fL MCH (25.0-35.0) pg RDW 18.9 H (11.5-15.5) % Plt Count 84 L (150-450) k/uL Lymphocytes # 0.4 L (1.0-4.8) k/uL PT (9.0-12.0) sec INR (<1.2) APTT (22.0-30.0) sec ABG pH (7.35-7.45) ABG pCO2 (35-45) mmHg ABG pO2 157 H (83-108) mmHg ABG Total CO2 25 H (19-24) mmol/L ABG O2 Saturation 99.9 H (94-97) % ABG Hematocrit (34.0-46.0) % ABG Potassium (3.4-4.5) mmol/L ABG Ionized Calcium (4.5-5.3) mg/dL ABG Glucose (75-99) mg/dL ABG Lactic Acid (0.5-1.6) mmol/L Hemoglobin (11.4-16.0) gm/dL Chloride (98-107) mmol/L Carbon Dioxide (22-30) mmol/L BUN (7-17) mg/dL Creatinine (0.52-1.04) mg/dL Glucose (74-99) mg/dL POC Glucose (mg/dL) 190 H (70-110) mg/dL Calcium (8.4-10.2) mg/dL Magnesium (1.6-2.3) mg/dL Total Bilirubin (0.2-1.3) mg/dL Alkaline Phosphatase (38-126) U/L Total Protein (6.3-8.2) g/dL Albumin (3.5-5.0) g/dL Arterial Blood Potassium (3.4-4.5) mmol/L Arterial Blood Glucose (75-99) mg/dL Crossmatch 02/18/22 02/18/22 02/18/22 Range/Units 17:25 17:25 17:32 WBC (3.8-10.6) k/uL RBC (3.80-5.40) m/uL Hgb (11.4-16.0) gm/dL Hct (34.0-46.0) % MCV (80.0-100.0) fL MCH (25.0-35.0) pg RDW (11.5-15.5) % Plt Count (150-450) k/uL Lymphocytes # (1.0-4.8) k/uL PT (9.0-12.0) sec INR (<1.2) APTT 33.6 H (22.0-30.0) sec ABG pH (7.35-7.45) ABG pCO2 (35-45) mmHg ABG pO2 (83-108) mmHg ABG Total CO2 (19-24) mmol/L ABG O2 Saturation (94-97) % ABG Hematocrit (34.0-46.0) % ABG Potassium (3.4-4.5) mmol/L ABG Ionized Calcium (4.5-5.3) mg/dL ABG Glucose (75-99) mg/dL ABG Lactic Acid (0.5-1.6) mmol/L Hemoglobin (11.4-16.0) gm/dL Chloride 109 H (98-107) mmol/L Carbon Dioxide 21 L (22-30) mmol/L BUN 20 H (7-17) mg/dL Creatinine (0.52-1.04) mg/dL Glucose 149 H (74-99) mg/dL POC Glucose (mg/dL) 154 H (70-110) mg/dL Calcium 6.8 L (8.4-10.2) mg/dL Magnesium 3.5 H (1.6-2.3) mg/dL Total Bilirubin 1.5 H (0.2-1.3) mg/dL Alkaline Phosphatase 32 L (38-126) U/L Total Protein 4.1 L (6.3-8.2) g/dL Albumin 1.9 L (3.5-5.0) g/dL Arterial Blood Potassium (3.4-4.5) mmol/L Arterial Blood Glucose (75-99) mg/dL Crossmatch 02/18/22 02/18/22 02/18/22 Range/Units 18:48 19:40 19:57 WBC (3.8-10.6) k/uL RBC (3.80-5.40) m/uL Hgb (11.4-16.0) gm/dL Hct (34.0-46.0) % MCV (80.0-100.0) fL MCH (25.0-35.0) pg RDW (11.5-15.5) % Plt Count (150-450) k/uL Lymphocytes # (1.0-4.8) k/uL PT (9.0-12.0) sec INR (<1.2) APTT (22.0-30.0) sec ABG pH (7.35-7.45) ABG pCO2 (35-45) mmHg ABG pO2 176 H (83-108) mmHg ABG Total CO2 25 H (19-24) mmol/L ABG O2 Saturation 99.8 H (94-97) % ABG Hematocrit (34.0-46.0) % ABG Potassium (3.4-4.5) mmol/L ABG Ionized Calcium (4.5-5.3) mg/dL ABG Glucose (75-99) mg/dL ABG Lactic Acid (0.5-1.6) mmol/L Hemoglobin (11.4-16.0) gm/dL Chloride (98-107) mmol/L Carbon Dioxide (22-30) mmol/L BUN (7-17) mg/dL Creatinine (0.52-1.04) mg/dL Glucose (74-99) mg/dL POC Glucose (mg/dL) 125 H 117 H (70-110) mg/dL Calcium (8.4-10.2) mg/dL Magnesium (1.6-2.3) mg/dL Total Bilirubin (0.2-1.3) mg/dL Alkaline Phosphatase (38-126) U/L Total Protein (6.3-8.2) g/dL Albumin (3.5-5.0) g/dL Arterial Blood Potassium (3.4-4.5) mmol/L Arterial Blood Glucose (75-99) mg/dL Crossmatch 02/18/22 02/18/22 02/18/22 Range/Units 20:49 21:48 21:48 WBC (3.8-10.6) k/uL RBC 2.33 L (3.80-5.40) m/uL Hgb 6.2 L* (11.4-16.0) gm/dL Hct 18.9 L* (34.0-46.0) % MCV (80.0-100.0) fL MCH (25.0-35.0) pg RDW 18.8 H (11.5-15.5) % Plt Count 77 L (150-450) k/uL Lymphocytes # (1.0-4.8) k/uL PT (9.0-12.0) sec INR (<1.2) APTT (22.0-30.0) sec ABG pH (7.35-7.45) ABG pCO2 (35-45) mmHg ABG pO2 (83-108) mmHg ABG Total CO2 (19-24) mmol/L ABG O2 Saturation (94-97) % ABG Hematocrit (34.0-46.0) % ABG Potassium (3.4-4.5) mmol/L ABG Ionized Calcium (4.5-5.3) mg/dL ABG Glucose (75-99) mg/dL ABG Lactic Acid (0.5-1.6) mmol/L Hemoglobin (11.4-16.0) gm/dL Chloride (98-107) mmol/L Carbon Dioxide (22-30) mmol/L BUN (7-17) mg/dL Creatinine (0.52-1.04) mg/dL Glucose (74-99) mg/dL POC Glucose (mg/dL) 114 H 131 H (70-110) mg/dL Calcium (8.4-10.2) mg/dL Magnesium (1.6-2.3) mg/dL Total Bilirubin (0.2-1.3) mg/dL Alkaline Phosphatase (38-126) U/L Total Protein (6.3-8.2) g/dL Albumin (3.5-5.0) g/dL Arterial Blood Potassium (3.4-4.5) mmol/L Arterial Blood Glucose (75-99) mg/dL Crossmatch 02/18/22 02/18/22 02/19/22 Range/Units 22:57 23:50 00:53 WBC (3.8-10.6) k/uL RBC (3.80-5.40) m/uL Hgb (11.4-16.0) gm/dL Hct (34.0-46.0) % MCV (80.0-100.0) fL MCH (25.0-35.0) pg RDW (11.5-15.5) % Plt Count (150-450) k/uL Lymphocytes # (1.0-4.8) k/uL PT (9.0-12.0) sec INR (<1.2) APTT (22.0-30.0) sec ABG pH (7.35-7.45) ABG pCO2 (35-45) mmHg ABG pO2 (83-108) mmHg ABG Total CO2 (19-24) mmol/L ABG O2 Saturation (94-97) % ABG Hematocrit (34.0-46.0) % ABG Potassium (3.4-4.5) mmol/L ABG Ionized Calcium (4.5-5.3) mg/dL ABG Glucose (75-99) mg/dL ABG Lactic Acid (0.5-1.6) mmol/L Hemoglobin (11.4-16.0) gm/dL Chloride (98-107) mmol/L Carbon Dioxide (22-30) mmol/L BUN (7-17) mg/dL Creatinine (0.52-1.04) mg/dL Glucose (74-99) mg/dL POC Glucose (mg/dL) 130 H 125 H 124 H (70-110) mg/dL Calcium (8.4-10.2) mg/dL Magnesium (1.6-2.3) mg/dL Total Bilirubin (0.2-1.3) mg/dL Alkaline Phosphatase (38-126) U/L Total Protein (6.3-8.2) g/dL Albumin (3.5-5.0) g/dL Arterial Blood Potassium (3.4-4.5) mmol/L Arterial Blood Glucose (75-99) mg/dL Crossmatch 02/19/22 02/19/22 02/19/22 Range/Units 02:01 02:50 02:51 WBC 3.4 L (3.8-10.6) k/uL RBC 2.40 L (3.80-5.40) m/uL Hgb 6.5 L* (11.4-16.0) gm/dL Hct 19.6 L* (34.0-46.0) % MCV (80.0-100.0) fL MCH (25.0-35.0) pg RDW 18.4 H (11.5-15.5) % Plt Count 83 L (150-450) k/uL Lymphocytes # 0.4 L (1.0-4.8) k/uL PT (9.0-12.0) sec INR (<1.2) APTT (22.0-30.0) sec ABG pH (7.35-7.45) ABG pCO2 (35-45) mmHg ABG pO2 (83-108) mmHg ABG Total CO2 (19-24) mmol/L ABG O2 Saturation (94-97) % ABG Hematocrit (34.0-46.0) % ABG Potassium (3.4-4.5) mmol/L ABG Ionized Calcium (4.5-5.3) mg/dL ABG Glucose (75-99) mg/dL ABG Lactic Acid (0.5-1.6) mmol/L Hemoglobin (11.4-16.0) gm/dL Chloride (98-107) mmol/L Carbon Dioxide (22-30) mmol/L BUN (7-17) mg/dL Creatinine (0.52-1.04) mg/dL Glucose (74-99) mg/dL POC Glucose (mg/dL) 120 H 117 H (70-110) mg/dL Calcium (8.4-10.2) mg/dL Magnesium (1.6-2.3) mg/dL Total Bilirubin (0.2-1.3) mg/dL Alkaline Phosphatase (38-126) U/L Total Protein (6.3-8.2) g/dL Albumin (3.5-5.0) g/dL Arterial Blood Potassium (3.4-4.5) mmol/L Arterial Blood Glucose (75-99) mg/dL Crossmatch 02/19/22 02/19/22 02/19/22 Range/Units 04:05 04:10 05:05 WBC (3.8-10.6) k/uL RBC (3.80-5.40) m/uL Hgb (11.4-16.0) gm/dL Hct (34.0-46.0) % MCV (80.0-100.0) fL MCH (25.0-35.0) pg RDW (11.5-15.5) % Plt Count (150-450) k/uL Lymphocytes # (1.0-4.8) k/uL PT (9.0-12.0) sec INR (<1.2) APTT (22.0-30.0) sec ABG pH (7.35-7.45) ABG pCO2 (35-45) mmHg ABG pO2 (83-108) mmHg ABG Total CO2 (19-24) mmol/L ABG O2 Saturation (94-97) % ABG Hematocrit (34.0-46.0) % ABG Potassium (3.4-4.5) mmol/L ABG Ionized Calcium (4.5-5.3) mg/dL ABG Glucose (75-99) mg/dL ABG Lactic Acid (0.5-1.6) mmol/L Hemoglobin (11.4-16.0) gm/dL Chloride 111 H (98-107) mmol/L Carbon Dioxide 21 L (22-30) mmol/L BUN 24 H (7-17) mg/dL Creatinine 1.22 H (0.52-1.04) mg/dL Glucose 103 H (74-99) mg/dL POC Glucose (mg/dL) 114 H 120 H (70-110) mg/dL Calcium 7.0 L (8.4-10.2) mg/dL Magnesium 3.3 H (1.6-2.3) mg/dL Total Bilirubin (0.2-1.3) mg/dL Alkaline Phosphatase 33 L (38-126) U/L Total Protein 3.9 L (6.3-8.2) g/dL Albumin 1.8 L (3.5-5.0) g/dL Arterial Blood Potassium (3.4-4.5) mmol/L Arterial Blood Glucose (75-99) mg/dL Crossmatch 02/19/22 02/19/22 02/19/22 Range/Units 05:44 06:09 06:51 WBC (3.8-10.6) k/uL RBC (3.80-5.40) m/uL Hgb (11.4-16.0) gm/dL Hct (34.0-46.0) % MCV (80.0-100.0) fL MCH (25.0-35.0) pg RDW (11.5-15.5) % Plt Count (150-450) k/uL Lymphocytes # (1.0-4.8) k/uL PT (9.0-12.0) sec INR (<1.2) APTT (22.0-30.0) sec ABG pH (7.35-7.45) ABG pCO2 (35-45) mmHg ABG pO2 128 H (83-108) mmHg ABG Total CO2 (19-24) mmol/L ABG O2 Saturation 99.2 H (94-97) % ABG Hematocrit (34.0-46.0) % ABG Potassium (3.4-4.5) mmol/L ABG Ionized Calcium (4.5-5.3) mg/dL ABG Glucose (75-99) mg/dL ABG Lactic Acid (0.5-1.6) mmol/L Hemoglobin (11.4-16.0) gm/dL Chloride (98-107) mmol/L Carbon Dioxide (22-30) mmol/L BUN (7-17) mg/dL Creatinine (0.52-1.04) mg/dL Glucose (74-99) mg/dL POC Glucose (mg/dL) 123 H 123 H (70-110) mg/dL Calcium (8.4-10.2) mg/dL Magnesium (1.6-2.3) mg/dL Total Bilirubin (0.2-1.3) mg/dL Alkaline Phosphatase (38-126) U/L Total Protein (6.3-8.2) g/dL Albumin (3.5-5.0) g/dL Arterial Blood Potassium (3.4-4.5) mmol/L Arterial Blood Glucose (75-99) mg/dL Crossmatch 02/19/22 02/19/22 Range/Units 07:49 08:58 WBC (3.8-10.6) k/uL RBC (3.80-5.40) m/uL Hgb (11.4-16.0) gm/dL Hct (34.0-46.0) % MCV (80.0-100.0) fL MCH (25.0-35.0) pg RDW (11.5-15.5) % Plt Count (150-450) k/uL Lymphocytes # (1.0-4.8) k/uL PT (9.0-12.0) sec INR (<1.2) APTT (22.0-30.0) sec ABG pH (7.35-7.45) ABG pCO2 (35-45) mmHg ABG pO2 (83-108) mmHg ABG Total CO2 (19-24) mmol/L ABG O2 Saturation (94-97) % ABG Hematocrit (34.0-46.0) % ABG Potassium (3.4-4.5) mmol/L ABG Ionized Calcium (4.5-5.3) mg/dL ABG Glucose (75-99) mg/dL ABG Lactic Acid (0.5-1.6) mmol/L Hemoglobin (11.4-16.0) gm/dL Chloride (98-107) mmol/L Carbon Dioxide (22-30) mmol/L BUN (7-17) mg/dL Creatinine (0.52-1.04) mg/dL Glucose (74-99) mg/dL POC Glucose (mg/dL) 112 H 115 H (70-110) mg/dL Calcium (8.4-10.2) mg/dL Magnesium (1.6-2.3) mg/dL Total Bilirubin (0.2-1.3) mg/dL Alkaline Phosphatase (38-126) U/L Total Protein (6.3-8.2) g/dL Albumin (3.5-5.0) g/dL Arterial Blood Potassium (3.4-4.5) mmol/L Arterial Blood Glucose (75-99) mg/dL Crossmatch Microbiology - Last 24 Hours (Table) 02/18/22 12:01 Gram Stain - Preliminary Heart Valve Tissue Culture - Preliminary 02/18/22 12:01 Anaerobic Culture - Preliminary Heart Valve - Imaging and Cardiology Chest x-ray: report reviewed, image reviewed Assessment and Plan Assessment: 1. 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 Serratia bacteremia, sepsis on cefepime 2 g IV piggyback every 8 hours managed by infectious disease 3. Acute hypoxic respiratory failure requiring mechanical ventilation 4. Altered mental status this admission, resolved 5. Acute on chronic anemia, status post blood transfusion hemoglobin 8.1 today 02/17/2022 6. Acute kidney injury, BUN 24 and creatinine 1.22 today 7. Recent history of colitis and splenomegaly likely splenic infarct, status post colonoscopy which showed normal appearing colon from the rectum to the ce cum with no evidence of colitis or colorectal aplasia 8. History of anxiety 9. PTSD with history of self mutilation 10. Chronic dental abscess tooth #15, status post surgical extraction of tooth 11. Postoperative acute blood loss anemia, an expected outcome given her preoperative anemia, hemodilution and cardiopulmonary bypass Plan: 1. Continue to maximize medical therapy with aspirin, statin, and beta bryan. Will increase metoprolol tartrate as tolerated. 2. Currently being transfused for 1 unit of PRBCs for hemoglobin of 6.5 this morning. 3. Mechanical ventilator weaning per pulmonary critical care service recommendations. Once extubated encourage incentive spirometry use 10 times every hour while awake. Bronchodilators per pulmonology/critical care medicine. Continue propofol and Precedex drips at this time. Wean propofol drip to off once ready to place on mechanical ventilator weaning. 4. Once extubated increase activity, ambulate as tolerated. PT/OT/cardiac rehab consulted. 5. Will monitor daily labs and chest x-rays. Electrolyte replacement per protocol. 6. GI and DVT prophylaxis. 7. Pain control with current medication regimen. Avoid nephrotoxic agents. 8. Insulin management per primary care service. Patient is a nondiabetic with a preoperative hemoglobin A1c 5.9%. 9. Continue Inkom Cari catheter/ right IJ Cordis with hemodynamic monitoring. 10. Continue chest tubes for another 24 hours. 11. Continue Jefferson catheter for another 24 hours for strict accurate intake and output. Daily weights 12. Continue right radial arterial line for another 24 hours. 13. Continue atrial and ventricular epicardial pacemaker wires, deep connected to backup bedside pacemaker generator on a VVI 50. 14. May need placement of right pleural chest tube today for right pleural effusion. 15. More recommendations to follow based on patient's clinical course. Time with Patient: Greater than 30
[2022-02-19] MEDS: METOPROLOL TARTRATE 12.5 MG TAB PO SCH ×2 (09:59→20:33)
[2022-02-19] MEDS: ASPIRIN 325 MG TAB PO SCH (09:59)
--- NOTE | 2022-02-19 10:13 | XR ---
EXAMINATION TYPE: XR chest 1V portable DATE OF EXAM: 02/19/2022 10:03 AM COMPARISON: Chest x-ray 02/19/2022, chest x-ray 02/18/2022, chest x-ray 02/18/2022 TECHNIQUE: XR chest 1V portable . CLINICAL INDICATION:Female, 36 years old with history of right pleural effusion, recent AVR surgery FINDINGS: Lungs/Pleura: Improving bibasilar aeration. Persistent atelectasis of the left lung base. Similar kori nting of costophrenic angles bilaterally suggesting at least small pleural effusions, improved from p rior. Left chest tube in place with distal tip projecting at the lung apex. No evidence for pneumotho rax. Pulmonary vascularity: Normal appearance. Right jugular catheter with distal tip in the main pulmonar y artery, stable from prior. Heart/mediastinum: Mediastinal silhouette remains prominent, but is intervally improved from one day prior. Postoperative changes are present in the mediastinum. Musculoskeletal: No acute osseous pathology. Midline sternotomy wires and surgical clips project over the mediastinum. Lines/Tubes: Endotracheal tube with distal tip 3.9 cm above the awais Nasogastric tube with its distal tip and side-port projecting under the diaphragm. IMPRESSION: 1. Extensive postsurgical changes. Improving pleural effusions and aeration of the lung bases bilater ally. 2. Stable support lines and tubes.
[2022-02-19 10:16] LABS: Glucose,Whole Blood 118 mg/dL (70-110)
[2022-02-19] MEDS ORDERED: fentaNYL (PF) 50 MCG/ML 2 ML AMP IVP PRN (10:56)
[2022-02-19] MEDS: CHOLESTYRAMINE (WITH SUGAR) 4 GM PACKET PO SCH ×2 (11:19→16:54)
[2022-02-19 11:23] LABS: Glucose,Whole Blood 116 mg/dL (70-110)
--- NOTE | 2022-02-19 11:46 | P.PN ---
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 02/11/2022, the patient remains on a mechanical ventilator. Attempts were made to transfer this patient to [facility]. Unfortunately, due to bad situations, patient was unable to transfer. As such, the patient stayed with us. She was accepted to go to transfer to [facility] and this did not happen. Meanwhile, the patient remains hemodynamically stable. This morning to the performed today to 55 mcg/kg per minute. She is on assist control mode at the rate of 16 with a tidal volume of 450 and FiO2 of 40% with a PEEP of 5. She is hemodynamically stable and she has not required any pressors. She without enteral feeding for nutritional support and she is currently on vital AF this is an hour. The patient has no fever. White cell count is at 3 with a hemoglobin of 9.1. The blood gases from today shows a pH of 7.47 with a pCO2 of 34 and pO2 of 162. Recent electrolytes are stable and the renal function is also stable with a creatinine of 0.9 and a BUN of 24 and a sodium level of 144. She is on IV cefepime regarding Serratia endocarditis and sepsis. Overall fluid balance is -1.2 L in the chest x-ray still showing interstitial edema ET tube is in a good location. Note that hemoglobin also dropped down to 6.5. The patient received a total of 2 units of packed RBC in the morning hemoglobin is up in 1 is currently stable. No signs of any bleeding. No fever. No chills. No hemoptysis. 02/12/2022, the patient is extubated. The patient is currently on room air oxygen. Chest x-ray shows some increased interstitial markings and some right perihilar fullness, likely vascular in nature. The patient remains on IV cefepime. Awaiting follow-up cultures. Hemodynamically stable. The patient is afebrile. No confusion. Altered mentation. Upon further questioning, the patient denies using IV drugs. The patient's white cell count is at 4.3 with a hemoglobin 9.2. BUN is at 27 with a creatinine of 0.9 and sodium level is 144. No other complaints otherwise. Neurologically intact. Reevaluated today on 02/13/22, patient was initially intubated on 02/09, extubated on 02/11, patient presented with acute pulmonary edema, she has severe aortic insufficiency and aortic endocarditis secondary to Serratia. Treated with cefepime. Today the patient is complaining of diarrhea, patient is being screened for possible C. difficile colitis. Otherwise the patient is doing great, she is on room air, she is not in any distress, and C. diff screening is pending. WBC count is 4.8 hemoglobin is 9.4. Electrolytes are normal except for low potassium of 3.1, being corrected as per protocol. Patient was evaluated today on 02/14, seen by cardiothoracic surgery, and the plan is to eventually undergo aortic valve replacement. However the patient will be seen by gastroenterology for colonoscopy and GI clearance because of her recurrent history of colitis. Patient had negative screening for C. diff yesterday. Today the patient is relatively asymptomatic, her diarrhea has resolved. Patient is doing great. She is presently an overflow in the ICU Reevaluated today on 02/15/22, patient is doing well, no active pulmonary symptoms, patient declined tooth traction as recommended by dentist, underwent prep for colonoscopy today, overall the patient is doing great. And surgery to be set up at a later date. In the meantime a recommending morning the patient out of the ICU to a cardiac floor. Reevaluated today on 02/19/22, patient is now postoperative day #1 aortic valve replacement, patient remains intubated and mechanically ventilated. Her surgery was done yesterday, and I was notified about this patient last night. She was kept on mechanical ventilation. Presently on tidal volume of 500 assist control rate of 14, PEEP of 5, and FiO2 of 35%. Her ABG showed a pO2 of 128 pCO2 37 pH of 7.38. Patient developed postoperative acute blood loss anemia and thrombocytopenia expected patient also had preoperative anemia. Overall since his surgery, the patient received 12 units of packed RBCs 2 units of fresh frozen plasma 3 units of platelets and 1 unit of cryoprecipitate. Hemoglobin today is 7.6 early to see count is 4.9. Platelets are 100,000. Patient had a cardiac index of 3.2 cardiac output of 5.9. CVP is 14. Left pleural chest tube drained 150 ML of thin serosanguineous drainage in the last 8 hours and 450 total since surgery. Chest x-ray is suggestive of a right sided pleural effusion/being monitored by cardiothoracic surgery may or may not require a chest tube placement. Patient is in the process of weaning with CPAP, however the surgeon seems to be concerned about her lisinopril pleural effusion and preferred to wait a bit longer before extubating the patient. Objective - Vital Signs Vital signs: Vital Signs Temp 98.2 F 02/19/22 08:00 Pulse 72 02/19/22 11:20 Resp 15 02/19/22 11:00 BP 95/44 02/19/22 07:07 Pulse Ox 97 02/19/22 11:00 FiO2 35 02/19/22 11:06 Intake & Output 02/18/22 02/19/22 02/19/22 18:59 06:59 18:59 Intake Total 4873.784 2332.659 696.375 Output Total 3790 1310 290 Balance 4295.783 7618.659 406.375 Weight 73.6 kg 78 kg Intake: IV 193 1033 296 CO/CI 260 60 Cefepime 2 gm In Sodium 100 50 Chloride 0.9% 100 ml @ 25 mls/hr IVPB Q8HR [facility] Rx# :[id number] Lactated Ringers 1,000 ml 600 200 @ 50 mls/hr IV .Q20H [facility] Rx#:[id number] NS Pressure Tubing 90 123 36 Intake, IV Titration 2307.784 284.659 121.375 Amount ACETAMINOPHEN IV (For NPO 800 ) 1,000 mg In Empty Bag 1 bag @ 400 mls/hr IVPB Q6HR [facility] Rx#:[id number] Albumin Human 5% 250 ml 750 In Empty Bag 1 bag @ 250 mls/hr IVPB Q1HR PRN Rx#: [id number] Calcium Chloride 1 gm In 50 Sodium Chloride 0.9% 50 ml @ 50 mls/hr IVPB ONCE ONE Rx#:[id number] Calcium Gluconate in NaCl 100 2 gm In Saline 1 100ml. bag @ 100 mls/hr IVPB ONCE PRN Rx#:[id number] Dexmedetomidine/0.9% NaCl 58.175 (Pmx) 400 mcg In Empty Bag 1 bag @ 0.2 MCG/KG/HR 3.68 mls/hr IV .Q24H [facility] Rx#:[id number] Empty Bag 1 bag @ 3 UNIT/ 60 KG/MIN 481.745 mls/hr IV .Q8M ONE with Human Prothrombin Complx 1,650 unit Rx#:[id number] Insulin Regular 100 unit 10.200 11.657 1.591 In Sodium Chloride 0.9% 100 ml @ Per Protocol IV .Q0M [facility] Rx#:[id number] Lactated Ringers 1,000 ml 250 50 @ 50 mls/hr IV .Q20H [facility] Rx#:[id number] Potassium Chloride 10 meq 200 In Water For Injection 1 100ml.bag @ 100 mls/hr IVPB Q1H [facility] Rx#: [id number] propofoL 1,000 mg In 87.584 164.827 119.784 Empty Bag 1 bag @ Titrate IV .Q0M [facility] Rx#: [id number] Tube Feeding 30 Blood Product 2343 975 279 Ffp 24 Cpd Unit 299 [id number] Ffp 24 Cpda Unit 231 [id number] Platelet Pheresis Pas 263 Psoralen Unit [id number] Platelet Pheresis Pas 347 Psoralen Unit [id number] Platelet Pheresis Pas 337 Psoralen Unit [id number] Pooled Cryoprecipitate 65 Unit [id number] Rc As-1 Unit 310 [id number] Rc As-1 Unit 310 [id number] Rc As-1 Unit 310 [id number] Rc Pheresis 2 As3 Unit 283 [id number] Rc Pheresis 2 As3 Unit 0 276 [id number] Rc Pheresis 2 As3 Unit 287 [id number] Rc Pheresis As-3 Unit 0 279 [id number] Other 40 Output: Chest Tube Drainage 2280 960 140 Chest Tube Left Pleural/ 220 250 50 Mediastinal Chest Tube Mediastinal 1850 140 20 Chest Tube Right Right 210 570 70 Pleural/Mediastinal Urine 510 350 150 Estimated Blood Loss 1000 Other: Voiding Method Indwelling Catheter Indwelling Catheter Indwelling Catheter ABP, PAP, CO, CI - Last Documented Arterial Blood Pressure 92/43 Pulmonary Artery Pressure 30/17 Cardiac Output 5.8 Cardiac Index 3.1 - Exam CONSTITUTIONAL revealed 56-year-old female intubated, mechanically ventilated, on propofol and Precedex. HEENT: Right IJ Cordis and [place]-Rajni catheter noted in place otherwise negative RESPIRATORY: Symmetrical chest expansion, diminished breath sounds at the bases CARDIOVASCULAR: Normal S1 and S2, no S3 gallop, 2/6 systolic murmur rub the precordium. GASTROINTESTINAL: Soft nontender, no megaly, no rebound, no guarding. INTEGUMENTARY: Skin is warm and dry , no rashes, no cyanosis. NEUROLOGIC: Alert and oriented 3 focal deficits. MUSKULOSKELETAL: No deformities and no limitation in range of motion. PSYCHIATRIC: Normal mood affect and normal mental status examination. - Labs CBC & Chem 7: 02/19/22 08:59 02/19/22 04:05 Labs: Abnormal Lab Results - Last 24 Hours (Table) 02/17/22 02/18/22 02/18/22 Range/Units 06:59 08:39 09:13 WBC (3.8-10.6) k/uL RBC (3.80-5.40) m/uL Hgb (11.4-16.0) gm/dL Hct (34.0-46.0) % MCV (80.0-100.0) fL MCH (25.0-35.0) pg RDW (11.5-15.5) % Plt Count (150-450) k/uL Lymphocytes # (1.0-4.8) k/uL PT (9.0-12.0) sec INR (<1.2) APTT (22.0-30.0) sec ABG pH (7.35-7.45) ABG pCO2 34 L (35-45) mmHg ABG pO2 195 H 357 H (83-108) mmHg ABG Total CO2 (19-24) mmol/L ABG O2 Saturation 99.6 H 100.0 H (94-97) % ABG Hematocrit 19 L* 19 L* (34.0-46.0) % ABG Potassium 3.3 L (3.4-4.5) mmol/L ABG Ionized Calcium 4.4 L 4.4 L (4.5-5.3) mg/dL ABG Glucose 113 H 129 H (75-99) mg/dL ABG Lactic Acid 0.4 L (0.5-1.6) mmol/L Hemoglobin 6.2 L* 6.2 L* (11.4-16.0) gm/dL Chloride (98-107) mmol/L Carbon Dioxide (22-30) mmol/L BUN (7-17) mg/dL Creatinine (0.52-1.04) mg/dL Glucose (74-99) mg/dL POC Glucose (mg/dL) (70-110) mg/dL Calcium (8.4-10.2) mg/dL Magnesium (1.6-2.3) mg/dL Total Bilirubin (0.2-1.3) mg/dL Alkaline Phosphatase (38-126) U/L Total Protein (6.3-8.2) g/dL Albumin (3.5-5.0) g/dL Arterial Blood Potassium 3.3 L (3.4-4.5) mmol/L Arterial Blood Glucose 113 H 129 H (75-99) mg/dL Crossmatch See Detail 02/18/22 02/18/22 02/18/22 Range/Units 09:28 10:03 10:32 WBC (3.8-10.6) k/uL RBC (3.80-5.40) m/uL Hgb (11.4-16.0) gm/dL Hct (34.0-46.0) % MCV (80.0-100.0) fL MCH (25.0-35.0) pg RDW (11.5-15.5) % Plt Count (150-450) k/uL Lymphocytes # (1.0-4.8) k/uL PT (9.0-12.0) sec INR (<1.2) APTT (22.0-30.0) sec ABG pH 7.26 L 7.33 L (7.35-7.45) ABG pCO2 32 L 49 H (35-45) mmHg ABG pO2 368 H 209 H 279 H (83-108) mmHg ABG Total CO2 (19-24) mmol/L ABG O2 Saturation 100.0 H 99.4 H 99.7 H (94-97) % ABG Hematocrit 21 L 23 L 26 L (34.0-46.0) % ABG Potassium (3.4-4.5) mmol/L ABG Ionized Calcium 3.7 L 4.4 L 4.3 L (4.5-5.3) mg/dL ABG Glucose 138 H 151 H 148 H (75-99) mg/dL ABG Lactic Acid (0.5-1.6) mmol/L Hemoglobin 6.7 L* 7.4 L 8.6 L (11.4-16.0) gm/dL Chloride (98-107) mmol/L Carbon Dioxide (22-30) mmol/L BUN (7-17) mg/dL Creatinine (0.52-1.04) mg/dL Glucose (74-99) mg/dL POC Glucose (mg/dL) (70-110) mg/dL Calcium (8.4-10.2) mg/dL Magnesium (1.6-2.3) mg/dL Total Bilirubin (0.2-1.3) mg/dL Alkaline Phosphatase (38-126) U/L Total Protein (6.3-8.2) g/dL Albumin (3.5-5.0) g/dL Arterial Blood Potassium (3.4-4.5) mmol/L Arterial Blood Glucose 138 H 151 H 148 H (75-99) mg/dL Crossmatch 02/18/22 02/18/22 02/18/22 Range/Units 11:18 11:51 12:51 WBC (3.8-10.6) k/uL RBC 2.95 L (3.80-5.40) m/uL Hgb 7.4 L (11.4-16.0) gm/dL Hct 23.0 L (34.0-46.0) % MCV 77.9 L (80.0-100.0) fL MCH 24.9 L (25.0-35.0) pg RDW 20.4 H (11.5-15.5) % Plt Count 76 L (150-450) k/uL Lymphocytes # 0.3 L (1.0-4.8) k/uL PT (9.0-12.0) sec INR (<1.2) APTT (22.0-30.0) sec ABG pH (7.35-7.45) ABG pCO2 (35-45) mmHg ABG pO2 274 H 301 H (83-108) mmHg ABG Total CO2 (19-24) mmol/L ABG O2 Saturation 100.0 H 99.8 H (94-97) % ABG Hematocrit 23 L 23 L (34.0-46.0) % ABG Potassium (3.4-4.5) mmol/L ABG Ionized Calcium (4.5-5.3) mg/dL ABG Glucose 168 H 163 H (75-99) mg/dL ABG Lactic Acid (0.5-1.6) mmol/L Hemoglobin 7.5 L 7.5 L (11.4-16.0) gm/dL Chloride (98-107) mmol/L Carbon Dioxide (22-30) mmol/L BUN (7-17) mg/dL Creatinine (0.52-1.04) mg/dL Glucose (74-99) mg/dL POC Glucose (mg/dL) (70-110) mg/dL Calcium (8.4-10.2) mg/dL Magnesium (1.6-2.3) mg/dL Total Bilirubin (0.2-1.3) mg/dL Alkaline Phosphatase (38-126) U/L Total Protein (6.3-8.2) g/dL Albumin (3.5-5.0) g/dL Arterial Blood Potassium (3.4-4.5) mmol/L Arterial Blood Glucose 168 H 163 H (75-99) mg/dL Crossmatch 02/18/22 02/18/22 02/18/22 Range/Units 12:51 12:51 13:21 WBC (3.8-10.6) k/uL RBC (3.80-5.40) m/uL Hgb (11.4-16.0) gm/dL Hct (34.0-46.0) % MCV (80.0-100.0) fL MCH (25.0-35.0) pg RDW (11.5-15.5) % Plt Count (150-450) k/uL Lymphocytes # (1.0-4.8) k/uL PT 12.6 H (9.0-12.0) sec INR 1.2 H (<1.2) APTT 33.1 H (22.0-30.0) sec ABG pH (7.35-7.45) ABG pCO2 (35-45) mmHg ABG pO2 >400 H (83-108) mmHg ABG Total CO2 (19-24) mmol/L ABG O2 Saturation 100.0 H (94-97) % ABG Hematocrit (34.0-46.0) % ABG Potassium (3.4-4.5) mmol/L ABG Ionized Calcium (4.5-5.3) mg/dL ABG Glucose (75-99) mg/dL ABG Lactic Acid (0.5-1.6) mmol/L Hemoglobin (11.4-16.0) gm/dL Chloride 109 H (98-107) mmol/L Carbon Dioxide (22-30) mmol/L BUN 18 H (7-17) mg/dL Creatinine (0.52-1.04) mg/dL Glucose 168 H (74-99) mg/dL POC Glucose (mg/dL) (70-110) mg/dL Calcium 7.3 L (8.4-10.2) mg/dL Magnesium 4.2 H (1.6-2.3) mg/dL Total Bilirubin (0.2-1.3) mg/dL Alkaline Phosphatase (38-126) U/L Total Protein 4.3 L (6.3-8.2) g/dL Albumin 1.8 L (3.5-5.0) g/dL Arterial Blood Potassium (3.4-4.5) mmol/L Arterial Blood Glucose (75-99) mg/dL Crossmatch 02/18/22 02/18/22 02/18/22 Range/Units 13:23 14:55 15:06 WBC (3.8-10.6) k/uL RBC 2.27 L (3.80-5.40) m/uL Hgb 5.7 L* D (11.4-16.0) gm/dL Hct 17.8 L* (34.0-46.0) % MCV 78.2 L (80.0-100.0) fL MCH (25.0-35.0) pg RDW 20.3 H (11.5-15.5) % Plt Count 77 L (150-450) k/uL Lymphocytes # (1.0-4.8) k/uL PT (9.0-12.0) sec INR (<1.2) APTT (22.0-30.0) sec ABG pH (7.35-7.45) ABG pCO2 (35-45) mmHg ABG pO2 (83-108) mmHg ABG Total CO2 (19-24) mmol/L ABG O2 Saturation (94-97) % ABG Hematocrit (34.0-46.0) % ABG Potassium (3.4-4.5) mmol/L ABG Ionized Calcium (4.5-5.3) mg/dL ABG Glucose (75-99) mg/dL ABG Lactic Acid (0.5-1.6) mmol/L Hemoglobin (11.4-16.0) gm/dL Chloride (98-107) mmol/L Carbon Dioxide (22-30) mmol/L BUN (7-17) mg/dL Creatinine (0.52-1.04) mg/dL Glucose (74-99) mg/dL POC Glucose (mg/dL) 163 H 171 H (70-110) mg/dL Calcium (8.4-10.2) mg/dL Magnesium (1.6-2.3) mg/dL Total Bilirubin (0.2-1.3) mg/dL Alkaline Phosphatase (38-126) U/L Total Protein (6.3-8.2) g/dL Albumin (3.5-5.0) g/dL Arterial Blood Potassium (3.4-4.5) mmol/L Arterial Blood Glucose (75-99) mg/dL Crossmatch 02/18/22 02/18/22 02/18/22 Range/Units 16:21 17:24 17:25 WBC (3.8-10.6) k/uL RBC 2.80 L (3.80-5.40) m/uL Hgb 7.0 L (11.4-16.0) gm/dL Hct 22.3 L (34.0-46.0) % MCV 79.6 L (80.0-100.0) fL MCH (25.0-35.0) pg RDW 18.9 H (11.5-15.5) % Plt Count 84 L (150-450) k/uL Lymphocytes # 0.4 L (1.0-4.8) k/uL PT (9.0-12.0) sec INR (<1.2) APTT (22.0-30.0) sec ABG pH (7.35-7.45) ABG pCO2 (35-45) mmHg ABG pO2 157 H (83-108) mmHg ABG Total CO2 25 H (19-24) mmol/L ABG O2 Saturation 99.9 H (94-97) % ABG Hematocrit (34.0-46.0) % ABG Potassium (3.4-4.5) mmol/L ABG Ionized Calcium (4.5-5.3) mg/dL ABG Glucose (75-99) mg/dL ABG Lactic Acid (0.5-1.6) mmol/L Hemoglobin (11.4-16.0) gm/dL Chloride (98-107) mmol/L Carbon Dioxide (22-30) mmol/L BUN (7-17) mg/dL Creatinine (0.52-1.04) mg/dL Glucose (74-99) mg/dL POC Glucose (mg/dL) 190 H (70-110) mg/dL Calcium (8.4-10.2) mg/dL Magnesium (1.6-2.3) mg/dL Total Bilirubin (0.2-1.3) mg/dL Alkaline Phosphatase (38-126) U/L Total Protein (6.3-8.2) g/dL Albumin (3.5-5.0) g/dL Arterial Blood Potassium (3.4-4.5) mmol/L Arterial Blood Glucose (75-99) mg/dL Crossmatch 02/18/22 02/18/22 02/18/22 Range/Units 17:25 17:25 17:32 WBC (3.8-10.6) k/uL RBC (3.80-5.40) m/uL Hgb (11.4-16.0) gm/dL Hct (34.0-46.0) % MCV (80.0-100.0) fL MCH (25.0-35.0) pg RDW (11.5-15.5) % Plt Count (150-450) k/uL Lymphocytes # (1.0-4.8) k/uL PT (9.0-12.0) sec INR (<1.2) APTT 33.6 H (22.0-30.0) sec ABG pH (7.35-7.45) ABG pCO2 (35-45) mmHg ABG pO2 (83-108) mmHg ABG Total CO2 (19-24) mmol/L ABG O2 Saturation (94-97) % ABG Hematocrit (34.0-46.0) % ABG Potassium (3.4-4.5) mmol/L ABG Ionized Calcium (4.5-5.3) mg/dL ABG Glucose (75-99) mg/dL ABG Lactic Acid (0.5-1.6) mmol/L Hemoglobin (11.4-16.0) gm/dL Chloride 109 H (98-107) mmol/L Carbon Dioxide 21 L (22-30) mmol/L BUN 20 H (7-17) mg/dL Creatinine (0.52-1.04) mg/dL Glucose 149 H (74-99) mg/dL POC Glucose (mg/dL) 154 H (70-110) mg/dL Calcium 6.8 L (8.4-10.2) mg/dL Magnesium 3.5 H (1.6-2.3) mg/dL Total Bilirubin 1.5 H (0.2-1.3) mg/dL Alkaline Phosphatase 32 L (38-126) U/L Total Protein 4.1 L (6.3-8.2) g/dL Albumin 1.9 L (3.5-5.0) g/dL Arterial Blood Potassium (3.4-4.5) mmol/L Arterial Blood Glucose (75-99) mg/dL Crossmatch 02/18/22 02/18/22 02/18/22 Range/Units 18:48 19:40 19:57 WBC (3.8-10.6) k/uL RBC (3.80-5.40) m/uL Hgb (11.4-16.0) gm/dL Hct (34.0-46.0) % MCV (80.0-100.0) fL MCH (25.0-35.0) pg RDW (11.5-15.5) % Plt Count (150-450) k/uL Lymphocytes # (1.0-4.8) k/uL PT (9.0-12.0) sec INR (<1.2) APTT (22.0-30.0) sec ABG pH (7.35-7.45) ABG pCO2 (35-45) mmHg ABG pO2 176 H (83-108) mmHg ABG Total CO2 25 H (19-24) mmol/L ABG O2 Saturation 99.8 H (94-97) % ABG Hematocrit (34.0-46.0) % ABG Potassium (3.4-4.5) mmol/L ABG Ionized Calcium (4.5-5.3) mg/dL ABG Glucose (75-99) mg/dL ABG Lactic Acid (0.5-1.6) mmol/L Hemoglobin (11.4-16.0) gm/dL Chloride (98-107) mmol/L Carbon Dioxide (22-30) mmol/L BUN (7-17) mg/dL Creatinine (0.52-1.04) mg/dL Glucose (74-99) mg/dL POC Glucose (mg/dL) 125 H 117 H (70-110) mg/dL Calcium (8.4-10.2) mg/dL Magnesium (1.6-2.3) mg/dL Total Bilirubin (0.2-1.3) mg/dL Alkaline Phosphatase (38-126) U/L Total Protein (6.3-8.2) g/dL Albumin (3.5-5.0) g/dL Arterial Blood Potassium (3.4-4.5) mmol/L Arterial Blood Glucose (75-99) mg/dL Crossmatch 02/18/22 02/18/22 02/18/22 Range/Units 20:49 21:48 21:48 WBC (3.8-10.6) k/uL RBC 2.33 L (3.80-5.40) m/uL Hgb 6.2 L* (11.4-16.0) gm/dL Hct 18.9 L* (34.0-46.0) % MCV (80.0-100.0) fL MCH (25.0-35.0) pg RDW 18.8 H (11.5-15.5) % Plt Count 77 L (150-450) k/uL Lymphocytes # (1.0-4.8) k/uL PT (9.0-12.0) sec INR (<1.2) APTT (22.0-30.0) sec ABG pH (7.35-7.45) ABG pCO2 (35-45) mmHg ABG pO2 (83-108) mmHg ABG Total CO2 (19-24) mmol/L ABG O2 Saturation (94-97) % ABG Hematocrit (34.0-46.0) % ABG Potassium (3.4-4.5) mmol/L ABG Ionized Calcium (4.5-5.3) mg/dL ABG Glucose (75-99) mg/dL ABG Lactic Acid (0.5-1.6) mmol/L Hemoglobin (11.4-16.0) gm/dL Chloride (98-107) mmol/L Carbon Dioxide (22-30) mmol/L BUN (7-17) mg/dL Creatinine (0.52-1.04) mg/dL Glucose (74-99) mg/dL POC Glucose (mg/dL) 114 H 131 H (70-110) mg/dL Calcium (8.4-10.2) mg/dL Magnesium (1.6-2.3) mg/dL Total Bilirubin (0.2-1.3) mg/dL Alkaline Phosphatase (38-126) U/L Total Protein (6.3-8.2) g/dL Albumin (3.5-5.0) g/dL Arterial Blood Potassium (3.4-4.5) mmol/L Arterial Blood Glucose (75-99) mg/dL Crossmatch 02/18/22 02/18/22 02/19/22 Range/Units 22:57 23:50 00:53 WBC (3.8-10.6) k/uL RBC (3.80-5.40) m/uL Hgb (11.4-16.0) gm/dL Hct (34.0-46.0) % MCV (80.0-100.0) fL MCH (25.0-35.0) pg RDW (11.5-15.5) % Plt Count (150-450) k/uL Lymphocytes # (1.0-4.8) k/uL PT (9.0-12.0) sec INR (<1.2) APTT (22.0-30.0) sec ABG pH (7.35-7.45) ABG pCO2 (35-45) mmHg ABG pO2 (83-108) mmHg ABG Total CO2 (19-24) mmol/L ABG O2 Saturation (94-97) % ABG Hematocrit (34.0-46.0) % ABG Potassium (3.4-4.5) mmol/L ABG Ionized Calcium (4.5-5.3) mg/dL ABG Glucose (75-99) mg/dL ABG Lactic Acid (0.5-1.6) mmol/L Hemoglobin (11.4-16.0) gm/dL Chloride (98-107) mmol/L Carbon Dioxide (22-30) mmol/L BUN (7-17) mg/dL Creatinine (0.52-1.04) mg/dL Glucose (74-99) mg/dL POC Glucose (mg/dL) 130 H 125 H 124 H (70-110) mg/dL Calcium (8.4-10.2) mg/dL Magnesium (1.6-2.3) mg/dL Total Bilirubin (0.2-1.3) mg/dL Alkaline Phosphatase (38-126) U/L Total Protein (6.3-8.2) g/dL Albumin (3.5-5.0) g/dL Arterial Blood Potassium (3.4-4.5) mmol/L Arterial Blood Glucose (75-99) mg/dL Crossmatch 02/19/22 02/19/22 02/19/22 Range/Units 02:01 02:50 02:51 WBC 3.4 L (3.8-10.6) k/uL RBC 2.40 L (3.80-5.40) m/uL Hgb 6.5 L* (11.4-16.0) gm/dL Hct 19.6 L* (34.0-46.0) % MCV (80.0-100.0) fL MCH (25.0-35.0) pg RDW 18.4 H (11.5-15.5) % Plt Count 83 L (150-450) k/uL Lymphocytes # 0.4 L (1.0-4.8) k/uL PT (9.0-12.0) sec INR (<1.2) APTT (22.0-30.0) sec ABG pH (7.35-7.45) ABG pCO2 (35-45) mmHg ABG pO2 (83-108) mmHg ABG Total CO2 (19-24) mmol/L ABG O2 Saturation (94-97) % ABG Hematocrit (34.0-46.0) % ABG Potassium (3.4-4.5) mmol/L ABG Ionized Calcium (4.5-5.3) mg/dL ABG Glucose (75-99) mg/dL ABG Lactic Acid (0.5-1.6) mmol/L Hemoglobin (11.4-16.0) gm/dL Chloride (98-107) mmol/L Carbon Dioxide (22-30) mmol/L BUN (7-17) mg/dL Creatinine (0.52-1.04) mg/dL Glucose (74-99) mg/dL POC Glucose (mg/dL) 120 H 117 H (70-110) mg/dL Calcium (8.4-10.2) mg/dL Magnesium (1.6-2.3) mg/dL Total Bilirubin (0.2-1.3) mg/dL Alkaline Phosphatase (38-126) U/L Total Protein (6.3-8.2) g/dL Albumin (3.5-5.0) g/dL Arterial Blood Potassium (3.4-4.5) mmol/L Arterial Blood Glucose (75-99) mg/dL Crossmatch 02/19/22 02/19/22 02/19/22 Range/Units 04:05 04:10 05:05 WBC (3.8-10.6) k/uL RBC (3.80-5.40) m/uL Hgb (11.4-16.0) gm/dL Hct (34.0-46.0) % MCV (80.0-100.0) fL MCH (25.0-35.0) pg RDW (11.5-15.5) % Plt Count (150-450) k/uL Lymphocytes # (1.0-4.8) k/uL PT (9.0-12.0) sec INR (<1.2) APTT (22.0-30.0) sec ABG pH (7.35-7.45) ABG pCO2 (35-45) mmHg ABG pO2 (83-108) mmHg ABG Total CO2 (19-24) mmol/L ABG O2 Saturation (94-97) % ABG Hematocrit (34.0-46.0) % ABG Potassium (3.4-4.5) mmol/L ABG Ionized Calcium (4.5-5.3) mg/dL ABG Glucose (75-99) mg/dL ABG Lactic Acid (0.5-1.6) mmol/L Hemoglobin (11.4-16.0) gm/dL Chloride 111 H (98-107) mmol/L Carbon Dioxide 21 L (22-30) mmol/L BUN 24 H (7-17) mg/dL Creatinine 1.22 H (0.52-1.04) mg/dL Glucose 103 H (74-99) mg/dL POC Glucose (mg/dL) 114 H 120 H (70-110) mg/dL Calcium 7.0 L (8.4-10.2) mg/dL Magnesium 3.3 H (1.6-2.3) mg/dL Total Bilirubin (0.2-1.3) mg/dL Alkaline Phosphatase 33 L (38-126) U/L Total Protein 3.9 L (6.3-8.2) g/dL Albumin 1.8 L (3.5-5.0) g/dL Arterial Blood Potassium (3.4-4.5) mmol/L Arterial Blood Glucose (75-99) mg/dL Crossmatch 02/19/22 02/19/22 02/19/22 Range/Units 05:44 06:09 06:51 WBC (3.8-10.6) k/uL RBC (3.80-5.40) m/uL Hgb (11.4-16.0) gm/dL Hct (34.0-46.0) % MCV (80.0-100.0) fL MCH (25.0-35.0) pg RDW (11.5-15.5) % Plt Count (150-450) k/uL Lymphocytes # (1.0-4.8) k/uL PT (9.0-12.0) sec INR (<1.2) APTT (22.0-30.0) sec ABG pH (7.35-7.45) ABG pCO2 (35-45) mmHg ABG pO2 128 H (83-108) mmHg ABG Total CO2 (19-24) mmol/L ABG O2 Saturation 99.2 H (94-97) % ABG Hematocrit (34.0-46.0) % ABG Potassium (3.4-4.5) mmol/L ABG Ionized Calcium (4.5-5.3) mg/dL ABG Glucose (75-99) mg/dL ABG Lactic Acid (0.5-1.6) mmol/L Hemoglobin (11.4-16.0) gm/dL Chloride (98-107) mmol/L Carbon Dioxide (22-30) mmol/L BUN (7-17) mg/dL Creatinine (0.52-1.04) mg/dL Glucose (74-99) mg/dL POC Glucose (mg/dL) 123 H 123 H (70-110) mg/dL Calcium (8.4-10.2) mg/dL Magnesium (1.6-2.3) mg/dL Total Bilirubin (0.2-1.3) mg/dL Alkaline Phosphatase (38-126) U/L Total Protein (6.3-8.2) g/dL Albumin (3.5-5.0) g/dL Arterial Blood Potassium (3.4-4.5) mmol/L Arterial Blood Glucose (75-99) mg/dL Crossmatch 02/19/22 02/19/22 02/19/22 Range/Units 07:49 08:58 08:59 WBC (3.8-10.6) k/uL RBC 2.75 L (3.80-5.40) m/uL Hgb 7.6 L (11.4-16.0) gm/dL Hct 22.8 L (34.0-46.0) % MCV (80.0-100.0) fL MCH (25.0-35.0) pg RDW 18.3 H (11.5-15.5) % Plt Count 100 L (150-450) k/uL Lymphocytes # (1.0-4.8) k/uL PT (9.0-12.0) sec INR (<1.2) APTT (22.0-30.0) sec ABG pH (7.35-7.45) ABG pCO2 (35-45) mmHg ABG pO2 (83-108) mmHg ABG Total CO2 (19-24) mmol/L ABG O2 Saturation (94-97) % ABG Hematocrit (34.0-46.0) % ABG Potassium (3.4-4.5) mmol/L ABG Ionized Calcium (4.5-5.3) mg/dL ABG Glucose (75-99) mg/dL ABG Lactic Acid (0.5-1.6) mmol/L Hemoglobin (11.4-16.0) gm/dL Chloride (98-107) mmol/L Carbon Dioxide (22-30) mmol/L BUN (7-17) mg/dL Creatinine (0.52-1.04) mg/dL Glucose (74-99) mg/dL POC Glucose (mg/dL) 112 H 115 H (70-110) mg/dL Calcium (8.4-10.2) mg/dL Magnesium (1.6-2.3) mg/dL Total Bilirubin (0.2-1.3) mg/dL Alkaline Phosphatase (38-126) U/L Total Protein (6.3-8.2) g/dL Albumin (3.5-5.0) g/dL Arterial Blood Potassium (3.4-4.5) mmol/L Arterial Blood Glucose (75-99) mg/dL Crossmatch 02/19/22 02/19/22 Range/Units 10:15 11:22 WBC (3.8-10.6) k/uL RBC (3.80-5.40) m/uL Hgb (11.4-16.0) gm/dL Hct (34.0-46.0) % MCV (80.0-100.0) fL MCH (25.0-35.0) pg RDW (11.5-15.5) % Plt Count (150-450) k/uL Lymphocytes # (1.0-4.8) k/uL PT (9.0-12.0) sec INR (<1.2) APTT (22.0-30.0) sec ABG pH (7.35-7.45) ABG pCO2 (35-45) mmHg ABG pO2 (83-108) mmHg ABG Total CO2 (19-24) mmol/L ABG O2 Saturation (94-97) % ABG Hematocrit (34.0-46.0) % ABG Potassium (3.4-4.5) mmol/L ABG Ionized Calcium (4.5-5.3) mg/dL ABG Glucose (75-99) mg/dL ABG Lactic Acid (0.5-1.6) mmol/L Hemoglobin (11.4-16.0) gm/dL Chloride (98-107) mmol/L Carbon Dioxide (22-30) mmol/L BUN (7-17) mg/dL Creatinine (0.52-1.04) mg/dL Glucose (74-99) mg/dL POC Glucose (mg/dL) 118 H 116 H (70-110) mg/dL Calcium (8.4-10.2) mg/dL Magnesium (1.6-2.3) mg/dL Total Bilirubin (0.2-1.3) mg/dL Alkaline Phosphatase (38-126) U/L Total Protein (6.3-8.2) g/dL Albumin (3.5-5.0) g/dL Arterial Blood Potassium (3.4-4.5) mmol/L Arterial Blood Glucose (75-99) mg/dL Crossmatch Microbiology - Last 24 Hours (Table) 02/18/22 12:01 Gram Stain - Preliminary Heart Valve Tissue Culture - Preliminary 02/18/22 12:01 Anaerobic Culture - Preliminary Heart Valve Assessment and Plan Assessment: Impression: Aortic valve endocarditis with severe aortic valve regurgitation, possible root abscess, status post aortic valve replacement with a 23 mm On-X mechanical aorti c valve, patch closure of aortotomy with involving pericardium, debridement of some annular infected tissue in the aortic outflow track and ligation of the left atrial appendage with a 35 mm Atricure clip postoperative day #1 Severe aortic regurgitation Acute pulmonary edema secondary to severe aortic insufficiency History of recent colitis and splenic infarct Possible recurrent colitis/rule out C. difficile colitis Acute blood loss anemia, expected superimposed on on chronic anemia Recommendation: Continue medical therapy including aspirin statins beta blockers Monitor hemoglobin and transfuse maintaining a hemoglobin around 7. Weaning and possible extubation today. Continue present supportive care measures Early ambulation. Continue antibiotics as per infectious disease on the case. Continue GI and DVT prophylaxis. We'll continue to follow while in the ICU. May or may not require right-sided chest tube placement for right-sided pleural effusion that is to be decided by thoracic surgery on the case. Again will likely wean and extubate this afternoon. Critical care time is over 30 minutes. Will follow as needed Time with Patient: Greater than 30
--- NOTE | 2022-02-19 11:51 | P.PN ---
Subjective HISTORY OF PRESENT ILLNESS: PROGRESS NOTE The patient is a 36-year-old female who presented with progressive dyspnea, change in mental status requiring mechanical ventilation. She was febrile and had positive blood cultures. She was recently discharged from [facility] with diarrhea and positive blood cultures as well with change in mental status. Her echocardiogram performed yesterday showed possible aortic valve vegetations that was confirmed on the transesophageal echocardiogram with severe aortic regurgitation and a tricuspid aortic valve. She had moderate mitral regurgitation. Her echocardiogram at [facility] on January 25 showed a normal systolic function with trace aortic regurgitation and no mention of vegetations. She had at [facility] evidence of splenic infarct and colitis as well has severe anemia. She continues to be intubated, tachycardic at times. Her blood pressure is stable. The color of her urine is better. There is no evidence of malignant arrhythmia. She continues to be febrile. Her urinary output is good. Her blood cultures were positive for Serratia Marcescens which is the same bacteria noted at [facility]. She was seen by the cardiovascular team yesterday. Her computed tomography scan of the abdomen showed moderately severe hepatosplenomegaly was bilateral enlargement of the kidneys. She had cardiomegaly with pleural effusion and basilar pulmonary infiltrate atelectasis. No suggestion of colitis was noted. February 11: The patient remains intubated and sedated, in sinus mechanism, hemodynamically stable on no vasopressors. She has good urinary output. There is no evidence of malignant arrhythmia. Her blood pressure were positive for Serratia marcescens. She is afebrile. Her echocardiogram showed severe aortic regurgi tation with evidence of vegetation on a tricuspid aortic valve and question of ulceration noted. Her systolic function was 50-55%. On the echocardiogram performed at [facility] recently there is no documentation of the vegetation and she had trace AI. The patient is being evaluated to be transferred to tertiary care hospital for further treatment. February 12: The patient is extubated, hemodynamically stable, denies any chest discomfort, dizziness or palpitations. She continues to be in sinus mechanism. She had no evidence of atrial arrhythmia. She cannot recall the episode prior to admission. She denies any knowledge of valvular problem in the past. She denies any history of IV drug abuse. She remains afebrile. Her urinary output has been stable. She received one dose of IV Lasix yesterday. Repeat blood culture from February 09 showed no growth after 48 hours. February 13: Patient seen and examined. Patient extubated yesterday and currently on nasal cannula. Having diarrhea. She admits she is lactose intolerant. Does not have much of an appetite. Hemodynamically stable. Cardiothoracic surgery deferring surgery until blood cultures if cleared. Blood cultures from 02/11 no growth to date. 02/14 Patient seen and examined. Patient concerned about undergoing colonoscopy and multiple questions yesterday. Today she feels she would likely prefer a mechan ical valve and is more agreeable to colonoscopy. Discussed findings and recommendations. Patient denies any chest pain or pressure. Does have mild dyspnea with lying flat. 02/15 Patient seen and examined. Patient still having some dyspnea however overall fairly well controlled. Underwent prep for colonoscopy today. Patient having difficulty making decisions regarding plan of care with family. 02/16/2022 Patient is status post colonoscopy revealing normal colon without evidence of colitis or neoplasm. Patient is also status post tooth extraction yesterday. Patient denies any chest pain or pressure she denies shortness of breath. Patient has been up and bleeding in her room without difficulty. Vital signs are stable. 02/17 Patient seen and examined. Patient scheduled for surgery tomorrow. She denies any chest pain or shortness breath. 02/19 Patient seen and examined. Patient underwent mechanical aortic valve replacement with a 23 mm On-X valve yesterday with some additional debridement of outflow tract. Patient did have some continued oozing requiring blood transfusion. There is increased right pleural effusion on the right and therefore recommendations for chest tube placement today by cardiothoracic surgery. Hemoglobin this morning 7.6, platelets 100, creatinine 1.2. Patient on FiO2 35%. PHYSICAL EXAM: VITAL SIGNS: Reviewed. GENERAL: Well-developed in no acute distress, sedated and intubated on ventilator NECK: Supple. No JVD or thyromegaly LUNGS: Respirations even and unlabored. Decreased breath sounds bilaterally right greater than left HEART: Regular rate and rhythm. S1 and S2 heard. no murmur noted. EXTREMITIES: Normal range of motion. No clubbing or cyanosis. Peripheral pulses intact. No lower extremity edema ASSESSMENT: 1. Aortic valve endocarditis severe aortic regurgitation s/p 23mm On-X mechanical aortic valve 02/18 2. Colitis and spleen infarct by CAT scan at [facility] 3. Respiratory failure, resolved 4. Change in mental status prior to admission related to the sepsis 5. Anemia, most likely related to the infectious process, improved 6. Abnormal renal functions, resolved 7. Blood loss anemia requiring blood transfusion PLAN: Patient underwent successful surgery with infected valve as well as some infe ction of the outflow tract status post the [facility] as well as mechanical aortic valve replacement. She has had issues with oozing and blood loss anemia. Monitor hemoglobin closely and transfuse as needed. Chest tube to be placed by cardiothoracic surgery today. Continue supportive care. Objective - Vital Signs Vital signs: Vital Signs Temp 98.2 F 02/19/22 08:00 Pulse 72 02/19/22 11:20 Resp 15 02/19/22 11:00 BP 95/44 02/19/22 07:07 Pulse Ox 97 02/19/22 11:00 FiO2 35 02/19/22 11:06 Intake & Output 02/18/22 02/19/22 02/19/22 18:59 06:59 18:59 Intake Total 4873.784 2332.659 696.375 Output Total 3790 1310 290 Balance 3076.599 6565.659 406.375 Weight 73.6 kg 78 kg Intake: IV 193 1033 296 CO/CI 260 60 Cefepime 2 gm In Sodium 100 50 Chloride 0.9% 100 ml @ 25 mls/hr IVPB Q8HR [facility] Rx# :[id number] Lactated Ringers 1,000 ml 600 200 @ 50 mls/hr IV .Q20H [facility] Rx#:[id number] NS Pressure Tubing 90 123 36 Intake, IV Titration 2307.784 284.659 121.375 Amount ACETAMINOPHEN IV (For NPO 800 ) 1,000 mg In Empty Bag 1 bag @ 400 mls/hr IVPB Q6HR [facility] Rx#:[id number] Albumin Human 5% 250 ml 750 In Empty Bag 1 bag @ 250 mls/hr IVPB Q1HR PRN Rx#: [id number] Calcium Chloride 1 gm In 50 Sodium Chloride 0.9% 50 ml @ 50 mls/hr IVPB ONCE ONE Rx#:[id number] Calcium Gluconate in NaCl 100 2 gm In Saline 1 100ml. bag @ 100 mls/hr IVPB ONCE PRN Rx#:[id number] Dexmedetomidine/0.9% NaCl 58.175 (Pmx) 400 mcg In Empty Bag 1 bag @ 0.2 MCG/KG/HR 3.68 mls/hr IV .Q24H [facility] Rx#:[id number] Empty Bag 1 bag @ 3 UNIT/ 60 KG/MIN 481.745 mls/hr IV .Q8M ONE with Human Prothrombin Complx 1,650 unit Rx#:[id number] Insulin Regular 100 unit 10.200 11.657 1.591 In Sodium Chloride 0.9% 100 ml @ Per Protocol IV .Q0M [facility] Rx#:[id number] Lactated Ringers 1,000 ml 250 50 @ 50 mls/hr IV .Q20H [facility] Rx#:[id number] Potassium Chloride 10 meq 200 In Water For Injection 1 100ml.bag @ 100 mls/hr IVPB Q1H [facility] Rx#: [id number] propofoL 1,000 mg In 87.584 164.827 119.784 Empty Bag 1 bag @ Titrate IV .Q0M [facility] Rx#: [id number] Tube Feeding 30 Blood Product 2343 975 279 Ffp 24 Cpd Unit 299 [id number] Ffp 24 Cpda Unit 231 [id number] Platelet Pheresis Pas 263 Psoralen Unit [id number] Platelet Pheresis Pas 347 Psoralen Unit [id number] Platelet Pheresis Pas 337 Psoralen Unit [id number] Pooled Cryoprecipitate 65 Unit [id number] Rc As-1 Unit 310 [id number] Rc As-1 Unit 310 [id number] Rc As-1 Unit 310 [id number] Rc Pheresis 2 As3 Unit 283 [id number] Rc Pheresis 2 As3 Unit 0 276 [id number] Rc Pheresis 2 As3 Unit 287 [id number] Rc Pheresis As-3 Unit 0 279 [id number] Other 40 Output: Chest Tube Drainage 2280 960 140 Chest Tube Left Pleural/ 220 250 50 Mediastinal Chest Tube Mediastinal 1850 140 20 Chest Tube Right Right 210 570 70 Pleural/Mediastinal Urine 510 350 150 Estimated Blood Loss 1000 Other: Voiding Method Indwelling Catheter Indwelling Catheter Indwelling Catheter ABP, PAP, CO, CI - Last Documented Arterial Blood Pressure 92/43 Pulmonary Artery Pressure 30/17 Cardiac Output 5.8 Cardiac Index 3.1 - Labs CBC & Chem 7: 02/19/22 08:59 02/19/22 04:05 Labs: Abnormal Lab Results - Last 24 Hours (Table) 02/17/22 02/18/22 02/18/22 Range/Units 06:59 08:39 09:13 WBC (3.8-10.6) k/uL RBC (3.80-5.40) m/uL Hgb (11.4-16.0) gm/dL Hct (34.0-46.0) % MCV (80.0-100.0) fL MCH (25.0-35.0) pg RDW (11.5-15.5) % Plt Count (150-450) k/uL Lymphocytes # (1.0-4.8) k/uL PT (9.0-12.0) sec INR (<1.2) APTT (22.0-30.0) sec ABG pH (7.35-7.45) ABG pCO2 34 L (35-45) mmHg ABG pO2 195 H 357 H (83-108) mmHg ABG Total CO2 (19-24) mmol/L ABG O2 Saturation 99.6 H 100.0 H (94-97) % ABG Hematocrit 19 L* 19 L* (34.0-46.0) % ABG Potassium 3.3 L (3.4-4.5) mmol/L ABG Ionized Calcium 4.4 L 4.4 L (4.5-5.3) mg/dL ABG Glucose 113 H 129 H (75-99) mg/dL ABG Lactic Acid 0.4 L (0.5-1.6) mmol/L Hemoglobin 6.2 L* 6.2 L* (11.4-16.0) gm/dL Chloride (98-107) mmol/L Carbon Dioxide (22-30) mmol/L BUN (7-17) mg/dL Creatinine (0.52-1.04) mg/dL Glucose (74-99) mg/dL POC Glucose (mg/dL) (70-110) mg/dL Calcium (8.4-10.2) mg/dL Magnesium (1.6-2.3) mg/dL Total Bilirubin (0.2-1.3) mg/dL Alkaline Phosphatase (38-126) U/L Total Protein (6.3-8.2) g/dL Albumin (3.5-5.0) g/dL Arterial Blood Potassium 3.3 L (3.4-4.5) mmol/L Arterial Blood Glucose 113 H 129 H (75-99) mg/dL Crossmatch See Detail 02/18/22 02/18/22 02/18/22 Range/Units 09:28 10:03 10:32 WBC (3.8-10.6) k/uL RBC (3.80-5.40) m/uL Hgb (11.4-16.0) gm/dL Hct (34.0-46.0) % MCV (80.0-100.0) fL MCH (25.0-35.0) pg RDW (11.5-15.5) % Plt Count (150-450) k/uL Lymphocytes # (1.0-4.8) k/uL PT (9.0-12.0) sec INR (<1.2) APTT (22.0-30.0) sec ABG pH 7.26 L 7.33 L (7.35-7.45) ABG pCO2 32 L 49 H (35-45) mmHg ABG pO2 368 H 209 H 279 H (83-108) mmHg ABG Total CO2 (19-24) mmol/L ABG O2 Saturation 100.0 H 99.4 H 99.7 H (94-97) % ABG Hematocrit 21 L 23 L 26 L (34.0-46.0) % ABG Potassium (3.4-4.5) mmol/L ABG Ionized Calcium 3.7 L 4.4 L 4.3 L (4.5-5.3) mg/dL ABG Glucose 138 H 151 H 148 H (75-99) mg/dL ABG Lactic Acid (0.5-1.6) mmol/L Hemoglobin 6.7 L* 7.4 L 8.6 L (11.4-16.0) gm/dL Chloride (98-107) mmol/L Carbon Dioxide (22-30) mmol/L BUN (7-17) mg/dL Creatinine (0.52-1.04) mg/dL Glucose (74-99) mg/dL POC Glucose (mg/dL) (70-110) mg/dL Calcium (8.4-10.2) mg/dL Magnesium (1.6-2.3) mg/dL Total Bilirubin (0.2-1.3) mg/dL Alkaline Phosphatase (38-126) U/L Total Protein (6.3-8.2) g/dL Albumin (3.5-5.0) g/dL Arterial Blood Potassium (3.4-4.5) mmol/L Arterial Blood Glucose 138 H 151 H 148 H (75-99) mg/dL Crossmatch 02/18/22 02/18/22 02/18/22 Range/Units 11:18 11:51 12:51 WBC (3.8-10.6) k/uL RBC 2.95 L (3.80-5.40) m/uL Hgb 7.4 L (11.4-16.0) gm/dL Hct 23.0 L (34.0-46.0) % MCV 77.9 L (80.0-100.0) fL MCH 24.9 L (25.0-35.0) pg RDW 20.4 H (11.5-15.5) % Plt Count 76 L (150-450) k/uL Lymphocytes # 0.3 L (1.0-4.8) k/uL PT (9.0-12.0) sec INR (<1.2) APTT (22.0-30.0) sec ABG pH (7.35-7.45) ABG pCO2 (35-45) mmHg ABG pO2 274 H 301 H (83-108) mmHg ABG Total CO2 (19-24) mmol/L ABG O2 Saturation 100.0 H 99.8 H (94-97) % ABG Hematocrit 23 L 23 L (34.0-46.0) % ABG Potassium (3.4-4.5) mmol/L ABG Ionized Calcium (4.5-5.3) mg/dL ABG Glucose 168 H 163 H (75-99) mg/dL ABG Lactic Acid (0.5-1.6) mmol/L Hemoglobin 7.5 L 7.5 L (11.4-16.0) gm/dL Chloride (98-107) mmol/L Carbon Dioxide (22-30) mmol/L BUN (7-17) mg/dL Creatinine (0.52-1.04) mg/dL Glucose (74-99) mg/dL POC Glucose (mg/dL) (70-110) mg/dL Calcium (8.4-10.2) mg/dL Magnesium (1.6-2.3) mg/dL Total Bilirubin (0.2-1.3) mg/dL Alkaline Phosphatase (38-126) U/L Total Protein (6.3-8.2) g/dL Albumin (3.5-5.0) g/dL Arterial Blood Potassium (3.4-4.5) mmol/L Arterial Blood Glucose 168 H 163 H (75-99) mg/dL Crossmatch 02/18/22 02/18/22 02/18/22 Range/Units 12:51 12:51 13:21 WBC (3.8-10.6) k/uL RBC (3.80-5.40) m/uL Hgb (11.4-16.0) gm/dL Hct (34.0-46.0) % MCV (80.0-100.0) fL MCH (25.0-35.0) pg RDW (11.5-15.5) % Plt Count (150-450) k/uL Lymphocytes # (1.0-4.8) k/uL PT 12.6 H (9.0-12.0) sec INR 1.2 H (<1.2) APTT 33.1 H (22.0-30.0) sec ABG pH (7.35-7.45) ABG pCO2 (35-45) mmHg ABG pO2 >400 H (83-108) mmHg ABG Total CO2 (19-24) mmol/L ABG O2 Saturation 100.0 H (94-97) % ABG Hematocrit (34.0-46.0) % ABG Potassium (3.4-4.5) mmol/L ABG Ionized Calcium (4.5-5.3) mg/dL ABG Glucose (75-99) mg/dL ABG Lactic Acid (0.5-1.6) mmol/L Hemoglobin (11.4-16.0) gm/dL Chloride 109 H (98-107) mmol/L Carbon Dioxide (22-30) mmol/L BUN 18 H (7-17) mg/dL Creatinine (0.52-1.04) mg/dL Glucose 168 H (74-99) mg/dL POC Glucose (mg/dL) (70-110) mg/dL Calcium 7.3 L (8.4-10.2) mg/dL Magnesium 4.2 H (1.6-2.3) mg/dL Total Bilirubin (0.2-1.3) mg/dL Alkaline Phosphatase (38-126) U/L Total Protein 4.3 L (6.3-8.2) g/dL Albumin 1.8 L (3.5-5.0) g/dL Arterial Blood Potassium (3.4-4.5) mmol/L Arterial Blood Glucose (75-99) mg/dL Crossmatch 02/18/22 02/18/22 02/18/22 Range/Units 13:23 14:55 15:06 WBC (3.8-10.6) k/uL RBC 2.27 L (3.80-5.40) m/uL Hgb 5.7 L* D (11.4-16.0) gm/dL Hct 17.8 L* (34.0-46.0) % MCV 78.2 L (80.0-100.0) fL MCH (25.0-35.0) pg RDW 20.3 H (11.5-15.5) % Plt Count 77 L (150-450) k/uL Lymphocytes # (1.0-4.8) k/uL PT (9.0-12.0) sec INR (<1.2) APTT (22.0-30.0) sec ABG pH (7.35-7.45) ABG pCO2 (35-45) mmHg ABG pO2 (83-108) mmHg ABG Total CO2 (19-24) mmol/L ABG O2 Saturation (94-97) % ABG Hematocrit (34.0-46.0) % ABG Potassium (3.4-4.5) mmol/L ABG Ionized Calcium (4.5-5.3) mg/dL ABG Glucose (75-99) mg/dL ABG Lactic Acid (0.5-1.6) mmol/L Hemoglobin (11.4-16.0) gm/dL Chloride (98-107) mmol/L Carbon Dioxide (22-30) mmol/L BUN (7-17) mg/dL Creatinine (0.52-1.04) mg/dL Glucose (74-99) mg/dL POC Glucose (mg/dL) 163 H 171 H (70-110) mg/dL Calcium (8.4-10.2) mg/dL Magnesium (1.6-2.3) mg/dL Total Bilirubin (0.2-1.3) mg/dL Alkaline Phosphatase (38-126) U/L Total Protein (6.3-8.2) g/dL Albumin (3.5-5.0) g/dL Arterial Blood Potassium (3.4-4.5) mmol/L Arterial Blood Glucose (75-99) mg/dL Crossmatch 02/18/22 02/18/22 02/18/22 Range/Units 16:21 17:24 17:25 WBC (3.8-10.6) k/uL RBC 2.80 L (3.80-5.40) m/uL Hgb 7.0 L (11.4-16.0) gm/dL Hct 22.3 L (34.0-46.0) % MCV 79.6 L (80.0-100.0) fL MCH (25.0-35.0) pg RDW 18.9 H (11.5-15.5) % Plt Count 84 L (150-450) k/uL Lymphocytes # 0.4 L (1.0-4.8) k/uL PT (9.0-12.0) sec INR (<1.2) APTT (22.0-30.0) sec ABG pH (7.35-7.45) ABG pCO2 (35-45) mmHg ABG pO2 157 H (83-108) mmHg ABG Total CO2 25 H (19-24) mmol/L ABG O2 Saturation 99.9 H (94-97) % ABG Hematocrit (34.0-46.0) % ABG Potassium (3.4-4.5) mmol/L ABG Ionized Calcium (4.5-5.3) mg/dL ABG Glucose (75-99) mg/dL ABG Lactic Acid (0.5-1.6) mmol/L Hemoglobin (11.4-16.0) gm/dL Chloride (98-107) mmol/L Carbon Dioxide (22-30) mmol/L BUN (7-17) mg/dL Creatinine (0.52-1.04) mg/dL Glucose (74-99) mg/dL POC Glucose (mg/dL) 190 H (70-110) mg/dL Calcium (8.4-10.2) mg/dL Magnesium (1.6-2.3) mg/dL Total Bilirubin (0.2-1.3) mg/dL Alkaline Phosphatase (38-126) U/L Total Protein (6.3-8.2) g/dL Albumin (3.5-5.0) g/dL Arterial Blood Potassium (3.4-4.5) mmol/L Arterial Blood Glucose (75-99) mg/dL Crossmatch 02/18/22 02/18/22 02/18/22 Range/Units 17:25 17:25 17:32 WBC (3.8-10.6) k/uL RBC (3.80-5.40) m/uL Hgb (11.4-16.0) gm/dL Hct (34.0-46.0) % MCV (80.0-100.0) fL MCH (25.0-35.0) pg RDW (11.5-15.5) % Plt Count (150-450) k/uL Lymphocytes # (1.0-4.8) k/uL PT (9.0-12.0) sec INR (<1.2) APTT 33.6 H (22.0-30.0) sec ABG pH (7.35-7.45) ABG pCO2 (35-45) mmHg ABG pO2 (83-108) mmHg ABG Total CO2 (19-24) mmol/L ABG O2 Saturation (94-97) % ABG Hematocrit (34.0-46.0) % ABG Potassium (3.4-4.5) mmol/L ABG Ionized Calcium (4.5-5.3) mg/dL ABG Glucose (75-99) mg/dL ABG Lactic Acid (0.5-1.6) mmol/L Hemoglobin (11.4-16.0) gm/dL Chloride 109 H (98-107) mmol/L Carbon Dioxide 21 L (22-30) mmol/L BUN 20 H (7-17) mg/dL Creatinine (0.52-1.04) mg/dL Glucose 149 H (74-99) mg/dL POC Glucose (mg/dL) 154 H (70-110) mg/dL Calcium 6.8 L (8.4-10.2) mg/dL Magnesium 3.5 H (1.6-2.3) mg/dL Total Bilirubin 1.5 H (0.2-1.3) mg/dL Alkaline Phosphatase 32 L (38-126) U/L Total Protein 4.1 L (6.3-8.2) g/dL Albumin 1.9 L (3.5-5.0) g/dL Arterial Blood Potassium (3.4-4.5) mmol/L Arterial Blood Glucose (75-99) mg/dL Crossmatch 02/18/22 02/18/22 02/18/22 Range/Units 18:48 19:40 19:57 WBC (3.8-10.6) k/uL RBC (3.80-5.40) m/uL Hgb (11.4-16.0) gm/dL Hct (34.0-46.0) % MCV (80.0-100.0) fL MCH (25.0-35.0) pg RDW (11.5-15.5) % Plt Count (150-450) k/uL Lymphocytes # (1.0-4.8) k/uL PT (9.0-12.0) sec INR (<1.2) APTT (22.0-30.0) sec ABG pH (7.35-7.45) ABG pCO2 (35-45) mmHg ABG pO2 176 H (83-108) mmHg ABG Total CO2 25 H (19-24) mmol/L ABG O2 Saturation 99.8 H (94-97) % ABG Hematocrit (34.0-46.0) % ABG Potassium (3.4-4.5) mmol/L ABG Ionized Calcium (4.5-5.3) mg/dL ABG Glucose (75-99) mg/dL ABG Lactic Acid (0.5-1.6) mmol/L Hemoglobin (11.4-16.0) gm/dL Chloride (98-107) mmol/L Carbon Dioxide (22-30) mmol/L BUN (7-17) mg/dL Creatinine (0.52-1.04) mg/dL Glucose (74-99) mg/dL POC Glucose (mg/dL) 125 H 117 H (70-110) mg/dL Calcium (8.4-10.2) mg/dL Magnesium (1.6-2.3) mg/dL Total Bilirubin (0.2-1.3) mg/dL Alkaline Phosphatase (38-126) U/L Total Protein (6.3-8.2) g/dL Albumin (3.5-5.0) g/dL Arterial Blood Potassium (3.4-4.5) mmol/L Arterial Blood Glucose (75-99) mg/dL Crossmatch 02/18/22 02/18/22 02/18/22 Range/Units 20:49 21:48 21:48 WBC (3.8-10.6) k/uL RBC 2.33 L (3.80-5.40) m/uL Hgb 6.2 L* (11.4-16.0) gm/dL Hct 18.9 L* (34.0-46.0) % MCV (80.0-100.0) fL MCH (25.0-35.0) pg RDW 18.8 H (11.5-15.5) % Plt Count 77 L (150-450) k/uL Lymphocytes # (1.0-4.8) k/uL PT (9.0-12.0) sec INR (<1.2) APTT (22.0-30.0) sec ABG pH (7.35-7.45) ABG pCO2 (35-45) mmHg ABG pO2 (83-108) mmHg ABG Total CO2 (19-24) mmol/L ABG O2 Saturation (94-97) % ABG Hematocrit (34.0-46.0) % ABG Potassium (3.4-4.5) mmol/L ABG Ionized Calcium (4.5-5.3) mg/dL ABG Glucose (75-99) mg/dL ABG Lactic Acid (0.5-1.6) mmol/L Hemoglobin (11.4-16.0) gm/dL Chloride (98-107) mmol/L Carbon Dioxide (22-30) mmol/L BUN (7-17) mg/dL Creatinine (0.52-1.04) mg/dL Glucose (74-99) mg/dL POC Glucose (mg/dL) 114 H 131 H (70-110) mg/dL Calcium (8.4-10.2) mg/dL Magnesium (1.6-2.3) mg/dL Total Bilirubin (0.2-1.3) mg/dL Alkaline Phosphatase (38-126) U/L Total Protein (6.3-8.2) g/dL Albumin (3.5-5.0) g/dL Arterial Blood Potassium (3.4-4.5) mmol/L Arterial Blood Glucose (75-99) mg/dL Crossmatch 02/18/22 02/18/22 02/19/22 Range/Units 22:57 23:50 00:53 WBC (3.8-10.6) k/uL RBC (3.80-5.40) m/uL Hgb (11.4-16.0) gm/dL Hct (34.0-46.0) % MCV (80.0-100.0) fL MCH (25.0-35.0) pg RDW (11.5-15.5) % Plt Count (150-450) k/uL Lymphocytes # (1.0-4.8) k/uL PT (9.0-12.0) sec INR (<1.2) APTT (22.0-30.0) sec ABG pH (7.35-7.45) ABG pCO2 (35-45) mmHg ABG pO2 (83-108) mmHg ABG Total CO2 (19-24) mmol/L ABG O2 Saturation (94-97) % ABG Hematocrit (34.0-46.0) % ABG Potassium (3.4-4.5) mmol/L ABG Ionized Calcium (4.5-5.3) mg/dL ABG Glucose (75-99) mg/dL ABG Lactic Acid (0.5-1.6) mmol/L Hemoglobin (11.4-16.0) gm/dL Chloride (98-107) mmol/L Carbon Dioxide (22-30) mmol/L BUN (7-17) mg/dL Creatinine (0.52-1.04) mg/dL Glucose (74-99) mg/dL POC Glucose (mg/dL) 130 H 125 H 124 H (70-110) mg/dL Calcium (8.4-10.2) mg/dL Magnesium (1.6-2.3) mg/dL Total Bilirubin (0.2-1.3) mg/dL Alkaline Phosphatase (38-126) U/L Total Protein (6.3-8.2) g/dL Albumin (3.5-5.0) g/dL Arterial Blood Potassium (3.4-4.5) mmol/L Arterial Blood Glucose (75-99) mg/dL Crossmatch 02/19/22 02/19/22 02/19/22 Range/Units 02:01 02:50 02:51 WBC 3.4 L (3.8-10.6) k/uL RBC 2.40 L (3.80-5.40) m/uL Hgb 6.5 L* (11.4-16.0) gm/dL Hct 19.6 L* (34.0-46.0) % MCV (80.0-100.0) fL MCH (25.0-35.0) pg RDW 18.4 H (11.5-15.5) % Plt Count 83 L (150-450) k/uL Lymphocytes # 0.4 L (1.0-4.8) k/uL PT (9.0-12.0) sec INR (<1.2) APTT (22.0-30.0) sec ABG pH (7.35-7.45) ABG pCO2 (35-45) mmHg ABG pO2 (83-108) mmHg ABG Total CO2 (19-24) mmol/L ABG O2 Saturation (94-97) % ABG Hematocrit (34.0-46.0) % ABG Potassium (3.4-4.5) mmol/L ABG Ionized Calcium (4.5-5.3) mg/dL ABG Glucose (75-99) mg/dL ABG Lactic Acid (0.5-1.6) mmol/L Hemoglobin (11.4-16.0) gm/dL Chloride (98-107) mmol/L Carbon Dioxide (22-30) mmol/L BUN (7-17) mg/dL Creatinine (0.52-1.04) mg/dL Glucose (74-99) mg/dL POC Glucose (mg/dL) 120 H 117 H (70-110) mg/dL Calcium (8.4-10.2) mg/dL Magnesium (1.6-2.3) mg/dL Total Bilirubin (0.2-1.3) mg/dL Alkaline Phosphatase (38-126) U/L Total Protein (6.3-8.2) g/dL Albumin (3.5-5.0) g/dL Arterial Blood Potassium (3.4-4.5) mmol/L Arterial Blood Glucose (75-99) mg/dL Crossmatch 02/19/22 02/19/22 02/19/22 Range/Units 04:05 04:10 05:05 WBC (3.8-10.6) k/uL RBC (3.80-5.40) m/uL Hgb (11.4-16.0) gm/dL Hct (34.0-46.0) % MCV (80.0-100.0) fL MCH (25.0-35.0) pg RDW (11.5-15.5) % Plt Count (150-450) k/uL Lymphocytes # (1.0-4.8) k/uL PT (9.0-12.0) sec INR (<1.2) APTT (22.0-30.0) sec ABG pH (7.35-7.45) ABG pCO2 (35-45) mmHg ABG pO2 (83-108) mmHg ABG Total CO2 (19-24) mmol/L ABG O2 Saturation (94-97) % ABG Hematocrit (34.0-46.0) % ABG Potassium (3.4-4.5) mmol/L ABG Ionized Calcium (4.5-5.3) mg/dL ABG Glucose (75-99) mg/dL ABG Lactic Acid (0.5-1.6) mmol/L Hemoglobin (11.4-16.0) gm/dL Chloride 111 H (98-107) mmol/L Carbon Dioxide 21 L (22-30) mmol/L BUN 24 H (7-17) mg/dL Creatinine 1.22 H (0.52-1.04) mg/dL Glucose 103 H (74-99) mg/dL POC Glucose (mg/dL) 114 H 120 H (70-110) mg/dL Calcium 7.0 L (8.4-10.2) mg/dL Magnesium 3.3 H (1.6-2.3) mg/dL Total Bilirubin (0.2-1.3) mg/dL Alkaline Phosphatase 33 L (38-126) U/L Total Protein 3.9 L (6.3-8.2) g/dL Albumin 1.8 L (3.5-5.0) g/dL Arterial Blood Potassium (3.4-4.5) mmol/L Arterial Blood Glucose (75-99) mg/dL Crossmatch 02/19/22 02/19/22 02/19/22 Range/Units 05:44 06:09 06:51 WBC (3.8-10.6) k/uL RBC (3.80-5.40) m/uL Hgb (11.4-16.0) gm/dL Hct (34.0-46.0) % MCV (80.0-100.0) fL MCH (25.0-35.0) pg RDW (11.5-15.5) % Plt Count (150-450) k/uL Lymphocytes # (1.0-4.8) k/uL PT (9.0-12.0) sec INR (<1.2) APTT (22.0-30.0) sec ABG pH (7.35-7.45) ABG pCO2 (35-45) mmHg ABG pO2 128 H (83-108) mmHg ABG Total CO2 (19-24) mmol/L ABG O2 Saturation 99.2 H (94-97) % ABG Hematocrit (34.0-46.0) % ABG Potassium (3.4-4.5) mmol/L ABG Ionized Calcium (4.5-5.3) mg/dL ABG Glucose (75-99) mg/dL ABG Lactic Acid (0.5-1.6) mmol/L Hemoglobin (11.4-16.0) gm/dL Chloride (98-107) mmol/L Carbon Dioxide (22-30) mmol/L BUN (7-17) mg/dL Creatinine (0.52-1.04) mg/dL Glucose (74-99) mg/dL POC Glucose (mg/dL) 123 H 123 H (70-110) mg/dL Calcium (8.4-10.2) mg/dL Magnesium (1.6-2.3) mg/dL Total Bilirubin (0.2-1.3) mg/dL Alkaline Phosphatase (38-126) U/L Total Protein (6.3-8.2) g/dL Albumin (3.5-5.0) g/dL Arterial Blood Potassium (3.4-4.5) mmol/L Arterial Blood Glucose (75-99) mg/dL Crossmatch 02/19/22 02/19/22 02/19/22 Range/Units 07:49 08:58 08:59 WBC (3.8-10.6) k/uL RBC 2.75 L (3.80-5.40) m/uL Hgb 7.6 L (11.4-16.0) gm/dL Hct 22.8 L (34.0-46.0) % MCV (80.0-100.0) fL MCH (25.0-35.0) pg RDW 18.3 H (11.5-15.5) % Plt Count 100 L (150-450) k/uL Lymphocytes # (1.0-4.8) k/uL PT (9.0-12.0) sec INR (<1.2) APTT (22.0-30.0) sec ABG pH (7.35-7.45) ABG pCO2 (35-45) mmHg ABG pO2 (83-108) mmHg ABG Total CO2 (19-24) mmol/L ABG O2 Saturation (94-97) % ABG Hematocrit (34.0-46.0) % ABG Potassium (3.4-4.5) mmol/L ABG Ionized Calcium (4.5-5.3) mg/dL ABG Glucose (75-99) mg/dL ABG Lactic Acid (0.5-1.6) mmol/L Hemoglobin (11.4-16.0) gm/dL Chloride (98-107) mmol/L Carbon Dioxide (22-30) mmol/L BUN (7-17) mg/dL Creatinine (0.52-1.04) mg/dL Glucose (74-99) mg/dL POC Glucose (mg/dL) 112 H 115 H (70-110) mg/dL Calcium (8.4-10.2) mg/dL Magnesium (1.6-2.3) mg/dL Total Bilirubin (0.2-1.3) mg/dL Alkaline Phosphatase (38-126) U/L Total Protein (6.3-8.2) g/dL Albumin (3.5-5.0) g/dL Arterial Blood Potassium (3.4-4.5) mmol/L Arterial Blood Glucose (75-99) mg/dL Crossmatch 02/19/22 02/19/22 Range/Units 10:15 11:22 WBC (3.8-10.6) k/uL RBC (3.80-5.40) m/uL Hgb (11.4-16.0) gm/dL Hct (34.0-46.0) % MCV (80.0-100.0) fL MCH (25.0-35.0) pg RDW (11.5-15.5) % Plt Count (150-450) k/uL Lymphocytes # (1.0-4.8) k/uL PT (9.0-12.0) sec INR (<1.2) APTT (22.0-30.0) sec ABG pH (7.35-7.45) ABG pCO2 (35-45) mmHg ABG pO2 (83-108) mmHg ABG Total CO2 (19-24) mmol/L ABG O2 Saturation (94-97) % ABG Hematocrit (34.0-46.0) % ABG Potassium (3.4-4.5) mmol/L ABG Ionized Calcium (4.5-5.3) mg/dL ABG Glucose (75-99) mg/dL ABG Lactic Acid (0.5-1.6) mmol/L Hemoglobin (11.4-16.0) gm/dL Chloride (98-107) mmol/L Carbon Dioxide (22-30) mmol/L BUN (7-17) mg/dL Creatinine (0.52-1.04) mg/dL Glucose (74-99) mg/dL POC Glucose (mg/dL) 118 H 116 H (70-110) mg/dL Calcium (8.4-10.2) mg/dL Magnesium (1.6-2.3) mg/dL Total Bilirubin (0.2-1.3) mg/dL Alkaline Phosphatase (38-126) U/L Total Protein (6.3-8.2) g/dL Albumin (3.5-5.0) g/dL Arterial Blood Potassium (3.4-4.5) mmol/L Arterial Blood Glucose (75-99) mg/dL Crossmatch Microbiology - Last 24 Hours (Table) 02/18/22 12:01 Gram Stain - Preliminary Heart Valve Tissue Culture - Preliminary 02/18/22 12:01 Anaerobic Culture - Preliminary Heart Valve
[2022-02-19] MEDS: CLEVIDIPINE BUTYRATE 25 MG in EMPTY BAG 1 BAG IV SCH (12:28)
--- NOTE | 2022-02-19 12:30 | XR ---
EXAMINATION TYPE: XR chest 1V portable DATE OF EXAM: 02/19/2022 12:12 PM COMPARISON: Chest x-rays 02/19/2022, TECHNIQUE: XR chest 1V portable . CLINICAL INDICATION:Female, 36 years old with history of s/p chest tube placement; Recent AVR surgery . FINDINGS: Lungs/Pleura: Continued interval improvement in aeration of the lung bases bilaterally. Persistent saxena zy airspace opacity within the right midlung persists. Improved visualization of the right costophren ic angle. There is similar blunting of the left costophrenic angle indicating at least a trace pleura l effusion. No pneumothorax. Pulmonary vascularity: Unremarkable. Heart/mediastinum: Cardiomediastinal silhouette is unremarkable. Postoperative changes are present i n the mediastinum. Musculoskeletal: No acute osseous pathology. Midline sternotomy wires are noted and stable. Other findings: Multiple external cardiac leads project over the patient's upper abdomen and lower ch est. Intervally placed right sided chest tube with distal tip projecting over the mid lung, no pneumo thorax. Left chest tube in place with distal tip projecting at the lung apex. Right jugular catheter with distal tip in the main pulmonary artery, stable in position. Lines/Tubes: Endotracheal tube with distal tip 3.9 cm above the awais Nasogastric tube with its distal tip and side-port projecting under the diaphragm. IMPRESSION: 1. Interval placement of right-sided chest tube. No evidence for pneumothorax. 2. Redemonstration of extensive postsurgical changes. There is continued improving aeration of the lo wer lobes from earlier examination. 3.Similar small left pleural effusion, right is intervally improved. 4. Stable support lines and tubes.
[2022-02-19 13:17] LABS: Glucose,Whole Blood 112 mg/dL (70-110)
[2022-02-19 13:58] LABS: ABG Base Excess -4.6 mmol/L; ABG HCO3 21 mmol/L (21-25); ABG Oxygen Saturation 97.1 % (94-97); ABG PCO2 37 mmHg (35-45); ABG PH 7.36 (7.35-7.45); ABG PO2 86 mmHg (83-108); ABG TCO2 22 mmol/L (19-24)
[2022-02-19 13:59] LABS: Allen Test Performed? no
[2022-02-19 15:17] LABS: Glucose,Whole Blood 124 mg/dL (70-110)
--- NOTE | 2022-02-19 16:00 | P.PN ---
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 She is a patient of Dr. Vizcarra. Patient was admitted in the ICU from the emergency room, patient could not provide information which were obtained from medical records and staff. per ems pt was recently at [place] for a blood infection. pt's last known well was last night at 10:30pm. pt found by family this evening altered. Patient was intubated in the emergency room Patient had a fever of 103 on admission, she is tachypneic 29-31, blood pressure 107/53 Labs reviewed on admission, WBC 8.7, low hemoglobin 6.9, low platelet 120, with thrombocytopenia which is mild ESR is elevated at 90, CRP elevated 8.9 PH normal 7.4, pCO2 normal at 37 INR 1.2 Sodium 132, potassium 3.2, creatinine 1.0. Liver enzymes are normal as well as bilirubin. Troponin is elevated at 0.37. ProBNP is elevated to 38,000 Urinalysis showing 3+ protein, large blood, RBC 127, WBC 27. Urine test is negative. Urine drug screen is positive for opioids EKG showing sinus tachycardia at [address]-T changes Chest x-ray: Acute pulmonary edema Computed tomography scan of the head and neck: Normal cervical spine with no fracture and normal CT of the brain by radiologist In the emergency room she received IV fluids with normal saline, vancomycin and ceftriaxone and ibuprofen and IV Tylenol, Dilaudid and lorazepam and succinylcholine 02/19/2022 Patient is seen and evaluated in ICU; remains intubated postoperatively; now postoperative day #1 aortic valve replacement ABG showed a pO2 of 128 pCO2 37 pH of 7.38. Patient developed postoperative acute blood loss anemia and thrombocytopenia expected patient also had preoperative anemia. Overall since his surgery, the patient received 12 units of packed RBCs 2 units of fresh frozen plasma 3 units of platelets and 1 unit of cryoprecipitate. Hemoglobin today is 7.6 early to see count is 4.9. Platelets are 100,000. Patient had a cardiac index of 3.2 cardiac output of 5.9. CVP is 14. Left pleural chest tube drained 150 ML of thin serosanguineous drainage in the last 8 hours and 450 total since surgery. Chest x-ray is suggestive of a right sided pleural effusion/being monitored by cardiothoracic surgery may or may not require a chest tube placement. Patient is in the process of weaning with CPAP, however the surgeon seems to be concerned about her lisinopril pleural effusion and preferred to wait a bit longer before extubating the patient. Objective - Vital Signs Vital signs: Vital Signs Temp 98.2 F 02/19/22 08:00 Pulse 73 02/19/22 10:00 Resp 17 02/19/22 10:00 BP 95/44 02/19/22 07:07 Pulse Ox 98 02/19/22 10:00 FiO2 35 02/19/22 10:00 Intake & Output 02/18/22 02/19/22 02/19/22 18:59 06:59 18:59 Intake Total 4873.784 2332.659 617.375 Output Total 3790 1310 195 Balance 2442.999 9976.659 422.375 Weight 73.6 kg 78 kg Intake: IV 193 1033 217 CO/CI 260 40 Cefepime 2 gm In Sodium 100 50 Chloride 0.9% 100 ml @ 25 mls/hr IVPB Q8HR [facility] Rx# :[id number] Lactated Ringers 1,000 ml 600 150 @ 50 mls/hr IV .Q20H [facility] Rx#:[id number] NS Pressure Tubing 90 123 27 Intake, IV Titration 2307.784 284.659 121.375 Amount ACETAMINOPHEN IV (For NPO 800 ) 1,000 mg In Empty Bag 1 bag @ 400 mls/hr IVPB Q6HR [facility] Rx#:[id number] Albumin Human 5% 250 ml 750 In Empty Bag 1 bag @ 250 mls/hr IVPB Q1HR PRN Rx#: [id number] Calcium Chloride 1 gm In 50 Sodium Chloride 0.9% 50 ml @ 50 mls/hr IVPB ONCE ONE Rx#:[id number] Calcium Gluconate in NaCl 100 2 gm In Saline 1 100ml. bag @ 100 mls/hr IVPB ONCE PRN Rx#:[id number] Dexmedetomidine/0.9% NaCl 58.175 (Pmx) 400 mcg In Empty Bag 1 bag @ 0.2 MCG/KG/HR 3.68 mls/hr IV .Q24H [facility] Rx#:[id number] Empty Bag 1 bag @ 3 UNIT/ 60 KG/MIN 481.745 mls/hr IV .Q8M ONE with Human Prothrombin Complx 1,650 unit Rx#:[id number] Insulin Regular 100 unit 10.200 11.657 1.591 In Sodium Chloride 0.9% 100 ml @ Per Protocol IV .Q0M [facility] Rx#:[id number] Lactated Ringers 1,000 ml 250 50 @ 50 mls/hr IV .Q20H COUNT INCLUDES THE [facility] Rx#:[id number] Potassium Chloride 10 meq 200 In Water For Injection 1 100ml.bag @ 100 mls/hr IVPB Q1H COUNT INCLUDES THE [facility] Rx#: [id number] propofoL 1,000 mg In 87.584 164.827 119.784 Empty Bag 1 bag @ Titrate IV .Q0M COUNT INCLUDES THE [facility] Rx#: [id number] Tube Feeding 30 Blood Product 2343 975 279 Ffp 24 Cpd Unit 299 [id number] Ffp 24 Cpda Unit 231 [id number] Platelet Pheresis Pas 263 Psoralen Unit [id number] Platelet Pheresis Pas 347 Psoralen Unit [id number] Platelet Pheresis Pas 337 Psoralen Unit [id number] Pooled Cryoprecipitate 65 Unit [id number] Rc As-1 Unit 310 [id number] Rc As-1 Unit 310 [id number] Rc As-1 Unit 310 [id number] Rc Pheresis 2 As3 Unit 283 [id number] Rc Pheresis 2 As3 Unit 0 276 [id number] Rc Pheresis 2 As3 Unit 287 [id number] Rc Pheresis As-3 Unit 0 279 [id number] Other 40 Output: Chest Tube Drainage 2280 960 90 Chest Tube Left Pleural/ 220 250 30 Mediastinal Chest Tube Mediastinal 1850 140 10 Chest Tube Right Right 210 570 50 Pleural/Mediastinal Urine 510 350 105 Estimated Blood Loss 1000 Other: Voiding Method Indwelling Catheter Indwelling Catheter Indwelling Catheter ABP, PAP, CO, CI - Last Documented Arterial Blood Pressure 107/50 Pulmonary Artery Pressure 31/18 Cardiac Output 5.8 Cardiac Index 3.1 - Exam -GENERAL: The patient is awake and alert but tired HEENT: Pupils are round and equally reacting to light. EOMI. No scleral icterus. No conjunctival pallor. Normocephalic, atraumatic. No pharyngeal erythema. No thyromegaly. -CARDIOVASCULAR: S1 and S2 present. Systolic murmurs, rubs, or gallops. PULMONARY: Chest is clear to auscultation, no wheezing or crackles. ABDOMEN: Soft, nontender, nondistended, normoactive bowel sounds. No palpable organomegaly. MUSCULOSKELETAL: No joint swelling or deformity. EXTREMITIES: No cyanosis, clubbing, or pedal edema. NEUROLOGICAL: Gross neurological examination did not reveal any focal deficits. SKIN: No rashes. no petechiae. - Labs CBC & Chem 7: 02/19/22 08:59 02/19/22 04:05 Labs: Abnormal Lab Results - Last 24 Hours (Table) 02/17/22 02/18/22 02/18/22 Range/Units 06:59 08:39 09:13 WBC (3.8-10.6) k/uL RBC (3.80-5.40) m/uL Hgb (11.4-16.0) gm/dL Hct (34.0-46.0) % MCV (80.0-100.0) fL MCH (25.0-35.0) pg RDW (11.5-15.5) % Plt Count (150-450) k/uL Lymphocytes # (1.0-4.8) k/uL PT (9.0-12.0) sec INR (<1.2) APTT (22.0-30.0) sec ABG pH (7.35-7.45) ABG pCO2 34 L (35-45) mmHg ABG pO2 195 H 357 H (83-108) mmHg ABG Total CO2 (19-24) mmol/L ABG O2 Saturation 99.6 H 100.0 H (94-97) % ABG Hematocrit 19 L* 19 L* (34.0-46.0) % ABG Potassium 3.3 L (3.4-4.5) mmol/L ABG Ionized Calcium 4.4 L 4.4 L (4.5-5.3) mg/dL ABG Glucose 113 H 129 H (75-99) mg/dL ABG Lactic Acid 0.4 L (0.5-1.6) mmol/L Hemoglobin 6.2 L* 6.2 L* (11.4-16.0) gm/dL Chloride (98-107) mmol/L Carbon Dioxide (22-30) mmol/L BUN (7-17) mg/dL Creatinine (0.52-1.04) mg/dL Glucose (74-99) mg/dL POC Glucose (mg/dL) (70-110) mg/dL Calcium (8.4-10.2) mg/dL Magnesium (1.6-2.3) mg/dL Total Bilirubin (0.2-1.3) mg/dL Alkaline Phosphatase (38-126) U/L Total Protein (6.3-8.2) g/dL Albumin (3.5-5.0) g/dL Arterial Blood Potassium 3.3 L (3.4-4.5) mmol/L Arterial Blood Glucose 113 H 129 H (75-99) mg/dL Crossmatch See Detail 02/18/22 02/18/22 02/18/22 Range/Units 09:28 10:03 10:32 WBC (3.8-10.6) k/uL RBC (3.80-5.40) m/uL Hgb (11.4-16.0) gm/dL Hct (34.0-46.0) % MCV (80.0-100.0) fL MCH (25.0-35.0) pg RDW (11.5-15.5) % Plt Count (150-450) k/uL Lymphocytes # (1.0-4.8) k/uL PT (9.0-12.0) sec INR (<1.2) APTT (22.0-30.0) sec ABG pH 7.26 L 7.33 L (7.35-7.45) ABG pCO2 32 L 49 H (35-45) mmHg ABG pO2 368 H 209 H 279 H (83-108) mmHg ABG Total CO2 (19-24) mmol/L ABG O2 Saturation 100.0 H 99.4 H 99.7 H (94-97) % ABG Hematocrit 21 L 23 L 26 L (34.0-46.0) % ABG Potassium (3.4-4.5) mmol/L ABG Ionized Calcium 3.7 L 4.4 L 4.3 L (4.5-5.3) mg/dL ABG Glucose 138 H 151 H 148 H (75-99) mg/dL ABG Lactic Acid (0.5-1.6) mmol/L Hemoglobin 6.7 L* 7.4 L 8.6 L (11.4-16.0) gm/dL Chloride (98-107) mmol/L Carbon Dioxide (22-30) mmol/L BUN (7-17) mg/dL Creatinine (0.52-1.04) mg/dL Glucose (74-99) mg/dL POC Glucose (mg/dL) (70-110) mg/dL Calcium (8.4-10.2) mg/dL Magnesium (1.6-2.3) mg/dL Total Bilirubin (0.2-1.3) mg/dL Alkaline Phosphatase (38-126) U/L Total Protein (6.3-8.2) g/dL Albumin (3.5-5.0) g/dL Arterial Blood Potassium (3.4-4.5) mmol/L Arterial Blood Glucose 138 H 151 H 148 H (75-99) mg/dL Crossmatch 02/18/22 02/18/22 02/18/22 Range/Units 11:18 11:51 12:51 WBC (3.8-10.6) k/uL RBC 2.95 L (3.80-5.40) m/uL Hgb 7.4 L (11.4-16.0) gm/dL Hct 23.0 L (34.0-46.0) % MCV 77.9 L (80.0-100.0) fL MCH 24.9 L (25.0-35.0) pg RDW 20.4 H (11.5-15.5) % Plt Count 76 L (150-450) k/uL Lymphocytes # 0.3 L (1.0-4.8) k/uL PT (9.0-12.0) sec INR (<1.2) APTT (22.0-30.0) sec ABG pH (7.35-7.45) ABG pCO2 (35-45) mmHg ABG pO2 274 H 301 H (83-108) mmHg ABG Total CO2 (19-24) mmol/L ABG O2 Saturation 100.0 H 99.8 H (94-97) % ABG Hematocrit 23 L 23 L (34.0-46.0) % ABG Potassium (3.4-4.5) mmol/L ABG Ionized Calcium (4.5-5.3) mg/dL ABG Glucose 168 H 163 H (75-99) mg/dL ABG Lactic Acid (0.5-1.6) mmol/L Hemoglobin 7.5 L 7.5 L (11.4-16.0) gm/dL Chloride (98-107) mmol/L Carbon Dioxide (22-30) mmol/L BUN (7-17) mg/dL Creatinine (0.52-1.04) mg/dL Glucose (74-99) mg/dL POC Glucose (mg/dL) (70-110) mg/dL Calcium (8.4-10.2) mg/dL Magnesium (1.6-2.3) mg/dL Total Bilirubin (0.2-1.3) mg/dL Alkaline Phosphatase (38-126) U/L Total Protein (6.3-8.2) g/dL Albumin (3.5-5.0) g/dL Arterial Blood Potassium (3.4-4.5) mmol/L Arterial Blood Glucose 168 H 163 H (75-99) mg/dL Crossmatch 02/18/22 02/18/22 02/18/22 Range/Units 12:51 12:51 13:21 WBC (3.8-10.6) k/uL RBC (3.80-5.40) m/uL Hgb (11.4-16.0) gm/dL Hct (34.0-46.0) % MCV (80.0-100.0) fL MCH (25.0-35.0) pg RDW (11.5-15.5) % Plt Count (150-450) k/uL Lymphocytes # (1.0-4.8) k/uL PT 12.6 H (9.0-12.0) sec INR 1.2 H (<1.2) APTT 33.1 H (22.0-30.0) sec ABG pH (7.35-7.45) ABG pCO2 (35-45) mmHg ABG pO2 >400 H (83-108) mmHg ABG Total CO2 (19-24) mmol/L ABG O2 Saturation 100.0 H (94-97) % ABG Hematocrit (34.0-46.0) % ABG Potassium (3.4-4.5) mmol/L ABG Ionized Calcium (4.5-5.3) mg/dL ABG Glucose (75-99) mg/dL ABG Lactic Acid (0.5-1.6) mmol/L Hemoglobin (11.4-16.0) gm/dL Chloride 109 H (98-107) mmol/L Carbon Dioxide (22-30) mmol/L BUN 18 H (7-17) mg/dL Creatinine (0.52-1.04) mg/dL Glucose 168 H (74-99) mg/dL POC Glucose (mg/dL) (70-110) mg/dL Calcium 7.3 L (8.4-10.2) mg/dL Magnesium 4.2 H (1.6-2.3) mg/dL Total Bilirubin (0.2-1.3) mg/dL Alkaline Phosphatase (38-126) U/L Total Protein 4.3 L (6.3-8.2) g/dL Albumin 1.8 L (3.5-5.0) g/dL Arterial Blood Potassium (3.4-4.5) mmol/L Arterial Blood Glucose (75-99) mg/dL Crossmatch 02/18/22 02/18/22 02/18/22 Range/Units 13:23 14:55 15:06 WBC (3.8-10.6) k/uL RBC 2.27 L (3.80-5.40) m/uL Hgb 5.7 L* D (11.4-16.0) gm/dL Hct 17.8 L* (34.0-46.0) % MCV 78.2 L (80.0-100.0) fL MCH (25.0-35.0) pg RDW 20.3 H (11.5-15.5) % Plt Count 77 L (150-450) k/uL Lymphocytes # (1.0-4.8) k/uL PT (9.0-12.0) sec INR (<1.2) APTT (22.0-30.0) sec ABG pH (7.35-7.45) ABG pCO2 (35-45) mmHg ABG pO2 (83-108) mmHg ABG Total CO2 (19-24) mmol/L ABG O2 Saturation (94-97) % ABG Hematocrit (34.0-46.0) % ABG Potassium (3.4-4.5) mmol/L ABG Ionized Calcium (4.5-5.3) mg/dL ABG Glucose (75-99) mg/dL ABG Lactic Acid (0.5-1.6) mmol/L Hemoglobin (11.4-16.0) gm/dL Chloride (98-107) mmol/L Carbon Dioxide (22-30) mmol/L BUN (7-17) mg/dL Creatinine (0.52-1.04) mg/dL Glucose (74-99) mg/dL POC Glucose (mg/dL) 163 H 171 H (70-110) mg/dL Calcium (8.4-10.2) mg/dL Magnesium (1.6-2.3) mg/dL Total Bilirubin (0.2-1.3) mg/dL Alkaline Phosphatase (38-126) U/L Total Protein (6.3-8.2) g/dL Albumin (3.5-5.0) g/dL Arterial Blood Potassium (3.4-4.5) mmol/L Arterial Blood Glucose (75-99) mg/dL Crossmatch 02/18/22 02/18/22 02/18/22 Range/Units 16:21 17:24 17:25 WBC (3.8-10.6) k/uL RBC 2.80 L (3.80-5.40) m/uL Hgb 7.0 L (11.4-16.0) gm/dL Hct 22.3 L (34.0-46.0) % MCV 79.6 L (80.0-100.0) fL MCH (25.0-35.0) pg RDW 18.9 H (11.5-15.5) % Plt Count 84 L (150-450) k/uL Lymphocytes # 0.4 L (1.0-4.8) k/uL PT (9.0-12.0) sec INR (<1.2) APTT (22.0-30.0) sec ABG pH (7.35-7.45) ABG pCO2 (35-45) mmHg ABG pO2 157 H (83-108) mmHg ABG Total CO2 25 H (19-24) mmol/L ABG O2 Saturation 99.9 H (94-97) % ABG Hematocrit (34.0-46.0) % ABG Potassium (3.4-4.5) mmol/L ABG Ionized Calcium (4.5-5.3) mg/dL ABG Glucose (75-99) mg/dL ABG Lactic Acid (0.5-1.6) mmol/L Hemoglobin (11.4-16.0) gm/dL Chloride (98-107) mmol/L Carbon Dioxide (22-30) mmol/L BUN (7-17) mg/dL Creatinine (0.52-1.04) mg/dL Glucose (74-99) mg/dL POC Glucose (mg/dL) 190 H (70-110) mg/dL Calcium (8.4-10.2) mg/dL Magnesium (1.6-2.3) mg/dL Total Bilirubin (0.2-1.3) mg/dL Alkaline Phosphatase (38-126) U/L Total Protein (6.3-8.2) g/dL Albumin (3.5-5.0) g/dL Arterial Blood Potassium (3.4-4.5) mmol/L Arterial Blood Glucose (75-99) mg/dL Crossmatch 02/18/22 02/18/22 02/18/22 Range/Units 17:25 17:25 17:32 WBC (3.8-10.6) k/uL RBC (3.80-5.40) m/uL Hgb (11.4-16.0) gm/dL Hct (34.0-46.0) % MCV (80.0-100.0) fL MCH (25.0-35.0) pg RDW (11.5-15.5) % Plt Count (150-450) k/uL Lymphocytes # (1.0-4.8) k/uL PT (9.0-12.0) sec INR (<1.2) APTT 33.6 H (22.0-30.0) sec ABG pH (7.35-7.45) ABG pCO2 (35-45) mmHg ABG pO2 (83-108) mmHg ABG Total CO2 (19-24) mmol/L ABG O2 Saturation (94-97) % ABG Hematocrit (34.0-46.0) % ABG Potassium (3.4-4.5) mmol/L ABG Ionized Calcium (4.5-5.3) mg/dL ABG Glucose (75-99) mg/dL ABG Lactic Acid (0.5-1.6) mmol/L Hemoglobin (11.4-16.0) gm/dL Chloride 109 H (98-107) mmol/L Carbon Dioxide 21 L (22-30) mmol/L BUN 20 H (7-17) mg/dL Creatinine (0.52-1.04) mg/dL Glucose 149 H (74-99) mg/dL POC Glucose (mg/dL) 154 H (70-110) mg/dL Calcium 6.8 L (8.4-10.2) mg/dL Magnesium 3.5 H (1.6-2.3) mg/dL Total Bilirubin 1.5 H (0.2-1.3) mg/dL Alkaline Phosphatase 32 L (38-126) U/L Total Protein 4.1 L (6.3-8.2) g/dL Albumin 1.9 L (3.5-5.0) g/dL Arterial Blood Potassium (3.4-4.5) mmol/L Arterial Blood Glucose (75-99) mg/dL Crossmatch 02/18/22 02/18/22 02/18/22 Range/Units 18:48 19:40 19:57 WBC (3.8-10.6) k/uL RBC (3.80-5.40) m/uL Hgb (11.4-16.0) gm/dL Hct (34.0-46.0) % MCV (80.0-100.0) fL MCH (25.0-35.0) pg RDW (11.5-15.5) % Plt Count (150-450) k/uL Lymphocytes # (1.0-4.8) k/uL PT (9.0-12.0) sec INR (<1.2) APTT (22.0-30.0) sec ABG pH (7.35-7.45) ABG pCO2 (35-45) mmHg ABG pO2 176 H (83-108) mmHg ABG Total CO2 25 H (19-24) mmol/L ABG O2 Saturation 99.8 H (94-97) % ABG Hematocrit (34.0-46.0) % ABG Potassium (3.4-4.5) mmol/L ABG Ionized Calcium (4.5-5.3) mg/dL ABG Glucose (75-99) mg/dL ABG Lactic Acid (0.5-1.6) mmol/L Hemoglobin (11.4-16.0) gm/dL Chloride (98-107) mmol/L Carbon Dioxide (22-30) mmol/L BUN (7-17) mg/dL Creatinine (0.52-1.04) mg/dL Glucose (74-99) mg/dL POC Glucose (mg/dL) 125 H 117 H (70-110) mg/dL Calcium (8.4-10.2) mg/dL Magnesium (1.6-2.3) mg/dL Total Bilirubin (0.2-1.3) mg/dL Alkaline Phosphatase (38-126) U/L Total Protein (6.3-8.2) g/dL Albumin (3.5-5.0) g/dL Arterial Blood Potassium (3.4-4.5) mmol/L Arterial Blood Glucose (75-99) mg/dL Crossmatch 02/18/22 02/18/22 02/18/22 Range/Units 20:49 21:48 21:48 WBC (3.8-10.6) k/uL RBC 2.33 L (3.80-5.40) m/uL Hgb 6.2 L* (11.4-16.0) gm/dL Hct 18.9 L* (34.0-46.0) % MCV (80.0-100.0) fL MCH (25.0-35.0) pg RDW 18.8 H (11.5-15.5) % Plt Count 77 L (150-450) k/uL Lymphocytes # (1.0-4.8) k/uL PT (9.0-12.0) sec INR (<1.2) APTT (22.0-30.0) sec ABG pH (7.35-7.45) ABG pCO2 (35-45) mmHg ABG pO2 (83-108) mmHg ABG Total CO2 (19-24) mmol/L ABG O2 Saturation (94-97) % ABG Hematocrit (34.0-46.0) % ABG Potassium (3.4-4.5) mmol/L ABG Ionized Calcium (4.5-5.3) mg/dL ABG Glucose (75-99) mg/dL ABG Lactic Acid (0.5-1.6) mmol/L Hemoglobin (11.4-16.0) gm/dL Chloride (98-107) mmol/L Carbon Dioxide (22-30) mmol/L BUN (7-17) mg/dL Creatinine (0.52-1.04) mg/dL Glucose (74-99) mg/dL POC Glucose (mg/dL) 114 H 131 H (70-110) mg/dL Calcium (8.4-10.2) mg/dL Magnesium (1.6-2.3) mg/dL Total Bilirubin (0.2-1.3) mg/dL Alkaline Phosphatase (38-126) U/L Total Protein (6.3-8.2) g/dL Albumin (3.5-5.0) g/dL Arterial Blood Potassium (3.4-4.5) mmol/L Arterial Blood Glucose (75-99) mg/dL Crossmatch 02/18/22 02/18/22 02/19/22 Range/Units 22:57 23:50 00:53 WBC (3.8-10.6) k/uL RBC (3.80-5.40) m/uL Hgb (11.4-16.0) gm/dL Hct (34.0-46.0) % MCV (80.0-100.0) fL MCH (25.0-35.0) pg RDW (11.5-15.5) % Plt Count (150-450) k/uL Lymphocytes # (1.0-4.8) k/uL PT (9.0-12.0) sec INR (<1.2) APTT (22.0-30.0) sec ABG pH (7.35-7.45) ABG pCO2 (35-45) mmHg ABG pO2 (83-108) mmHg ABG Total CO2 (19-24) mmol/L ABG O2 Saturation (94-97) % ABG Hematocrit (34.0-46.0) % ABG Potassium (3.4-4.5) mmol/L ABG Ionized Calcium (4.5-5.3) mg/dL ABG Glucose (75-99) mg/dL ABG Lactic Acid (0.5-1.6) mmol/L Hemoglobin (11.4-16.0) gm/dL Chloride (98-107) mmol/L Carbon Dioxide (22-30) mmol/L BUN (7-17) mg/dL Creatinine (0.52-1.04) mg/dL Glucose (74-99) mg/dL POC Glucose (mg/dL) 130 H 125 H 124 H (70-110) mg/dL Calcium (8.4-10.2) mg/dL Magnesium (1.6-2.3) mg/dL Total Bilirubin (0.2-1.3) mg/dL Alkaline Phosphatase (38-126) U/L Total Protein (6.3-8.2) g/dL Albumin (3.5-5.0) g/dL Arterial Blood Potassium (3.4-4.5) mmol/L Arterial Blood Glucose (75-99) mg/dL Crossmatch 02/19/22 02/19/22 02/19/22 Range/Units 02:01 02:50 02:51 WBC 3.4 L (3.8-10.6) k/uL RBC 2.40 L (3.80-5.40) m/uL Hgb 6.5 L* (11.4-16.0) gm/dL Hct 19.6 L* (34.0-46.0) % MCV (80.0-100.0) fL MCH (25.0-35.0) pg RDW 18.4 H (11.5-15.5) % Plt Count 83 L (150-450) k/uL Lymphocytes # 0.4 L (1.0-4.8) k/uL PT (9.0-12.0) sec INR (<1.2) APTT (22.0-30.0) sec ABG pH (7.35-7.45) ABG pCO2 (35-45) mmHg ABG pO2 (83-108) mmHg ABG Total CO2 (19-24) mmol/L ABG O2 Saturation (94-97) % ABG Hematocrit (34.0-46.0) % ABG Potassium (3.4-4.5) mmol/L ABG Ionized Calcium (4.5-5.3) mg/dL ABG Glucose (75-99) mg/dL ABG Lactic Acid (0.5-1.6) mmol/L Hemoglobin (11.4-16.0) gm/dL Chloride (98-107) mmol/L Carbon Dioxide (22-30) mmol/L BUN (7-17) mg/dL Creatinine (0.52-1.04) mg/dL Glucose (74-99) mg/dL POC Glucose (mg/dL) 120 H 117 H (70-110) mg/dL Calcium (8.4-10.2) mg/dL Magnesium (1.6-2.3) mg/dL Total Bilirubin (0.2-1.3) mg/dL Alkaline Phosphatase (38-126) U/L Total Protein (6.3-8.2) g/dL Albumin (3.5-5.0) g/dL Arterial Blood Potassium (3.4-4.5) mmol/L Arterial Blood Glucose (75-99) mg/dL Crossmatch 02/19/22 02/19/22 02/19/22 Range/Units 04:05 04:10 05:05 WBC (3.8-10.6) k/uL RBC (3.80-5.40) m/uL Hgb (11.4-16.0) gm/dL Hct (34.0-46.0) % MCV (80.0-100.0) fL MCH (25.0-35.0) pg RDW (11.5-15.5) % Plt Count (150-450) k/uL Lymphocytes # (1.0-4.8) k/uL PT (9.0-12.0) sec INR (<1.2) APTT (22.0-30.0) sec ABG pH (7.35-7.45) ABG pCO2 (35-45) mmHg ABG pO2 (83-108) mmHg ABG Total CO2 (19-24) mmol/L ABG O2 Saturation (94-97) % ABG Hematocrit (34.0-46.0) % ABG Potassium (3.4-4.5) mmol/L ABG Ionized Calcium (4.5-5.3) mg/dL ABG Glucose (75-99) mg/dL ABG Lactic Acid (0.5-1.6) mmol/L Hemoglobin (11.4-16.0) gm/dL Chloride 111 H (98-107) mmol/L Carbon Dioxide 21 L (22-30) mmol/L BUN 24 H (7-17) mg/dL Creatinine 1.22 H (0.52-1.04) mg/dL Glucose 103 H (74-99) mg/dL POC Glucose (mg/dL) 114 H 120 H (70-110) mg/dL Calcium 7.0 L (8.4-10.2) mg/dL Magnesium 3.3 H (1.6-2.3) mg/dL Total Bilirubin (0.2-1.3) mg/dL Alkaline Phosphatase 33 L (38-126) U/L Total Protein 3.9 L (6.3-8.2) g/dL Albumin 1.8 L (3.5-5.0) g/dL Arterial Blood Potassium (3.4-4.5) mmol/L Arterial Blood Glucose (75-99) mg/dL Crossmatch 02/19/22 02/19/22 02/19/22 Range/Units 05:44 06:09 06:51 WBC (3.8-10.6) k/uL RBC (3.80-5.40) m/uL Hgb (11.4-16.0) gm/dL Hct (34.0-46.0) % MCV (80.0-100.0) fL MCH (25.0-35.0) pg RDW (11.5-15.5) % Plt Count (150-450) k/uL Lymphocytes # (1.0-4.8) k/uL PT (9.0-12.0) sec INR (<1.2) APTT (22.0-30.0) sec ABG pH (7.35-7.45) ABG pCO2 (35-45) mmHg ABG pO2 128 H (83-108) mmHg ABG Total CO2 (19-24) mmol/L ABG O2 Saturation 99.2 H (94-97) % ABG Hematocrit (34.0-46.0) % ABG Potassium (3.4-4.5) mmol/L ABG Ionized Calcium (4.5-5.3) mg/dL ABG Glucose (75-99) mg/dL ABG Lactic Acid (0.5-1.6) mmol/L Hemoglobin (11.4-16.0) gm/dL Chloride (98-107) mmol/L Carbon Dioxide (22-30) mmol/L BUN (7-17) mg/dL Creatinine (0.52-1.04) mg/dL Glucose (74-99) mg/dL POC Glucose (mg/dL) 123 H 123 H (70-110) mg/dL Calcium (8.4-10.2) mg/dL Magnesium (1.6-2.3) mg/dL Total Bilirubin (0.2-1.3) mg/dL Alkaline Phosphatase (38-126) U/L Total Protein (6.3-8.2) g/dL Albumin (3.5-5.0) g/dL Arterial Blood Potassium (3.4-4.5) mmol/L Arterial Blood Glucose (75-99) mg/dL Crossmatch 02/19/22 02/19/22 02/19/22 Range/Units 07:49 08:58 08:59 WBC (3.8-10.6) k/uL RBC 2.75 L (3.80-5.40) m/uL Hgb 7.6 L (11.4-16.0) gm/dL Hct 22.8 L (34.0-46.0) % MCV (80.0-100.0) fL MCH (25.0-35.0) pg RDW 18.3 H (11.5-15.5) % Plt Count 100 L (150-450) k/uL Lymphocytes # (1.0-4.8) k/uL PT (9.0-12.0) sec INR (<1.2) APTT (22.0-30.0) sec ABG pH (7.35-7.45) ABG pCO2 (35-45) mmHg ABG pO2 (83-108) mmHg ABG Total CO2 (19-24) mmol/L ABG O2 Saturation (94-97) % ABG Hematocrit (34.0-46.0) % ABG Potassium (3.4-4.5) mmol/L ABG Ionized Calcium (4.5-5.3) mg/dL ABG Glucose (75-99) mg/dL ABG Lactic Acid (0.5-1.6) mmol/L Hemoglobin (11.4-16.0) gm/dL Chloride (98-107) mmol/L Carbon Dioxide (22-30) mmol/L BUN (7-17) mg/dL Creatinine (0.52-1.04) mg/dL Glucose (74-99) mg/dL POC Glucose (mg/dL) 112 H 115 H (70-110) mg/dL Calcium (8.4-10.2) mg/dL Magnesium (1.6-2.3) mg/dL Total Bilirubin (0.2-1.3) mg/dL Alkaline Phosphatase (38-126) U/L Total Protein (6.3-8.2) g/dL Albumin (3.5-5.0) g/dL Arterial Blood Potassium (3.4-4.5) mmol/L Arterial Blood Glucose (75-99) mg/dL Crossmatch 02/19/22 Range/Units 10:15 WBC (3.8-10.6) k/uL RBC (3.80-5.40) m/uL Hgb (11.4-16.0) gm/dL Hct (34.0-46.0) % MCV (80.0-100.0) fL MCH (25.0-35.0) pg RDW (11.5-15.5) % Plt Count (150-450) k/uL Lymphocytes # (1.0-4.8) k/uL PT (9.0-12.0) sec INR (<1.2) APTT (22.0-30.0) sec ABG pH (7.35-7.45) ABG pCO2 (35-45) mmHg ABG pO2 (83-108) mmHg ABG Total CO2 (19-24) mmol/L ABG O2 Saturation (94-97) % ABG Hematocrit (34.0-46.0) % ABG Potassium (3.4-4.5) mmol/L ABG Ionized Calcium (4.5-5.3) mg/dL ABG Glucose (75-99) mg/dL ABG Lactic Acid (0.5-1.6) mmol/L Hemoglobin (11.4-16.0) gm/dL Chloride (98-107) mmol/L Carbon Dioxide (22-30) mmol/L BUN (7-17) mg/dL Creatinine (0.52-1.04) mg/dL Glucose (74-99) mg/dL POC Glucose (mg/dL) 118 H (70-110) mg/dL Calcium (8.4-10.2) mg/dL Magnesium (1.6-2.3) mg/dL Total Bilirubin (0.2-1.3) mg/dL Alkaline Phosphatase (38-126) U/L Total Protein (6.3-8.2) g/dL Albumin (3.5-5.0) g/dL Arterial Blood Potassium (3.4-4.5) mmol/L Arterial Blood Glucose (75-99) mg/dL Crossmatch Microbiology - Last 24 Hours (Table) 02/18/22 12:01 Gram Stain - Preliminary Heart Valve Tissue Culture - Preliminary 02/18/22 12:01 Anaerobic Culture - Preliminary Heart Valve Assessment and Plan Assessment: Subacute bacterial endocarditis Severe aortic regurgitation secondary to above Sepsis with fever and tachypnea, resolved Acute hypoxic respiratory failure requiring intubation and mechanical ventilation, she got extubated on 02/28, resolved Metabolic encephalopathy Acute pulmonary edema, could be acute CHF versus RDS Severe anemia, microcytic hyperchromic requiring blood transfusion 4 Elevated troponin Plan: This is a pleasant 56 years old female who presents with AMS, on mechanical ventilation, anemia Continue with antibiotics as per ID team, currently on cefepime Keep follow-up and repeat blood culture, negative so far Cardiothoracic surgery team of the case, and the planned for aortic valve replacement Several consultants on the case including infectious disease, pulmonary/critical care, cardiology, cardiothoracic surgery IV fluids were stopped labs and medication were reviewed.. Continue same treatment. Continue with symptomatic treatment. Resume home medication. Monitor lytes and vitals. DVT and GI prophylaxis. Further recommendations as per clinical course of the patient DVT prophylaxis: She received aspirin and heparin today GI Prophylaxis: Ppi
[2022-02-19] MEDS: HEPARIN SODIUM,PORCINE/PF 5,000 UNIT/0.5 ML SYRINGE SQ SCH (16:38)
[2022-02-19] MEDS: ONDANSETRON 4 MG/2 ML VIAL IVP PRN ×2 (16:42→22:35)
[2022-02-19 16:49] LABS: Glucose,Whole Blood 129 mg/dL (70-110)
[2022-02-19 18:37] LABS: Glucose,Whole Blood 125 mg/dL (70-110)
[2022-02-19 20:19] LABS: Glucose,Whole Blood 125 mg/dL (70-110)
[2022-02-19] MEDS: SENNOSIDES-DOCUSATE SODIUM 1 EACH TAB PO SCH (20:33)
[2022-02-19 21:58] LABS: Glucose,Whole Blood 126 mg/dL (70-110)
[2022-02-20 00:15] LABS: Glucose,Whole Blood 120 mg/dL (70-110)
[2022-02-20] MEDS: HEPARIN SODIUM,PORCINE/PF 5,000 UNIT/0.5 ML SYRINGE SQ SCH ×4 (00:27→23:39)
[2022-02-20] MEDS: CEFEPIME 2 GM in SODIUM CHLORIDE 0.9% 100 ML IVPB SCH ×4 (00:28→23:37)
[2022-02-20] MEDS: HYDROcodone/APAP 5-325MG 1 EACH TAB PO PRN ×2 (00:28→04:31)
[2022-02-20 02:07] LABS: Glucose,Whole Blood 117 mg/dL (70-110)
[2022-02-20 04:13] LABS: Glucose,Whole Blood 123 mg/dL (70-110)
[2022-02-20 04:30] LABS: Anisocytosis Slight; Basophils % (A) 0 %; Eosinophils # (A) 0.1 k/uL (0-0.7); Eosinophils % (A) 1 %; HCT 24.8 % (34.0-46.0); HGB 8.3 gm/dL (11.4-16.0); Hypochromasia Marked; Lymphocytes # (A) 0.5 k/uL (1.0-4.8); Lymphocytes % (A) 6 %; MCH 27.9 pg (25.0-35.0); MCHC 33.5 g/dL (31.0-37.0); MCV 83.5 fL (80.0-100.0); Mean Platelet Volume 9.6; Microcytosis Slight; Monocytes # (A) 0.3 k/uL (0-1.0); Monocytes % (A) 4 %; Neutrophils # (A) 7.3 k/uL (1.3-7.7); Neutrophils % (A) 87 %; Poikilocytosis Moderate; RBC 2.98 m/uL (3.80-5.40); RDW 18.8 % (11.5-15.5); WBC 8.4 k/uL (3.8-10.6)
[2022-02-20] MEDS: ONDANSETRON 4 MG/2 ML VIAL IVP PRN (04:31)
[2022-02-20 04:39] LABS: Ionized Calcium 4.7 mg/dL (4.5-5.3)
[2022-02-20 04:45] LABS: Platelet Count 152 k/uL (150-450)
[2022-02-20 04:48] LABS: Albumin 2.1 g/dL (3.5-5.0); Calcium 7.7 mg/dL (8.4-10.2); Potassium 4.5 mmol/L (3.5-5.1); Total Bilirubin 0.8 mg/dL (0.2-1.3); Total Protein 4.7 g/dL (6.3-8.2)
[2022-02-20 06:05] LABS: Glucose,Whole Blood 134 mg/dL (70-110)
--- NOTE | 2022-02-20 07:25 | P.PN ---
Subjective Progress Note Date: 02/19/22 Principal diagnosis: Gram-negative bacteremia and aortic valve endocarditis Patient is a 36 year female presenting to the hospital with acute respiratory failure in this patient to have evidence of gram-negative bacteremia and there was concern for vegetation on the aortic valve , patient did have extension of the infected tooth and colonoscopy as a part of preparation for the aortic valve replacement which was completed 02/18/2022 on today's evaluation that is 02/19/2022, ,The patient continues to be afebrile, the patient is hemodynamically stable not requiring any pressor support, the patient is currently on the vent and FiO2 is down to 35%, no significant purulent secretion through the ET diarrhea or any other changes reported by nursing staff Objective - Vital Signs Vital signs: Vital Signs Temp 97.3 F L 02/19/22 12:00 Pulse 74 02/19/22 13:00 Resp 29 H 02/19/22 13:00 BP 95/44 02/19/22 07:07 Pulse Ox 98 02/19/22 13:00 FiO2 35 02/19/22 13:00 Intake & Output 02/18/22 02/19/22 02/19/22 18:59 06:59 18:59 Intake Total 4873.784 2332.659 979.476 Output Total 3790 1310 945 Balance 7582.652 8277.659 34.476 Weight 73.6 kg 78 kg Intake: IV 193 1033 429 CO/CI 260 80 Cefepime 2 gm In Sodium 100 50 Chloride 0.9% 100 ml @ 25 mls/hr IVPB Q8HR [facility] Rx# :[id number] Lactated Ringers 1,000 ml 600 295 @ 50 mls/hr IV .Q20H [facility] Rx#:[id number] NS Pressure Tubing 90 123 54 Intake, IV Titration 2307.784 284.659 271.476 Amount ACETAMINOPHEN IV (For NPO 800 ) 1,000 mg In Empty Bag 1 bag @ 400 mls/hr IVPB Q6HR [facility] Rx#:[id number] Albumin Human 5% 250 ml 750 In Empty Bag 1 bag @ 250 mls/hr IVPB Q1HR PRN Rx#: [id number] Calcium Chloride 1 gm In 50 Sodium Chloride 0.9% 50 ml @ 50 mls/hr IVPB ONCE ONE Rx#:[id number] Calcium Gluconate in NaCl 100 2 gm In Saline 1 100ml. bag @ 100 mls/hr IVPB ONCE PRN Rx#:[id number] Dexmedetomidine/0.9% NaCl 58.175 93.687 (Pmx) 400 mcg In Empty Bag 1 bag @ 0.2 MCG/KG/HR 3.68 mls/hr IV .Q24H [facility] Rx#:[id number] Empty Bag 1 bag @ 3 UNIT/ 60 KG/MIN 481.745 mls/hr IV .Q8M ONE with Human Prothrombin Complx 1,650 unit Rx#:[id number] Insulin Regular 100 unit 10.200 11.657 1.591 In Sodium Chloride 0.9% 100 ml @ Per Protocol IV .Q0M [facility] Rx#:[id number] Lactated Ringers 1,000 ml 250 50 @ 50 mls/hr IV .Q20H [facility] Rx#:[id number] Potassium Chloride 10 meq 200 In Water For Injection 1 100ml.bag @ 100 mls/hr IVPB Q1H [facility] Rx#: [id number] propofoL 1,000 mg In 87.584 164.827 176.198 Empty Bag 1 bag @ Titrate IV .Q0M [facility] Rx#: [id number] Tube Feeding 30 Blood Product 2343 975 279 Ffp 24 Cpd Unit 299 [id number] Ffp 24 Cpda Unit 231 [id number] Platelet Pheresis Pas 263 Psoralen Unit [id number] Platelet Pheresis Pas 347 Psoralen Unit [id number] Platelet Pheresis Pas 337 Psoralen Unit [id number] Pooled Cryoprecipitate 65 Unit [id number] Rc As-1 Unit 310 [id number] Rc As-1 Unit 310 [id number] Rc As-1 Unit 310 [id number] Rc Pheresis 2 As3 Unit 283 [id number] Rc Pheresis 2 As3 Unit 0 276 [id number] Rc Pheresis 2 As3 Unit 287 [id number] Rc Pheresis As-3 Unit 0 279 [id number] Other 40 Output: Chest Tube Drainage 2280 960 710 Chest Tube Left Pleural/ 220 250 100 Mediastinal Chest Tube Mediastinal 1850 140 20 Chest Tube Right 500 Chest Tube Right Right 210 570 90 Pleural/Mediastinal Urine 510 350 235 Estimated Blood Loss 1000 Other: Voiding Method Indwelling Catheter Indwelling Catheter Indwelling Catheter ABP, PAP, CO, CI - Last Documented Arterial Blood Pressure 100/54 Pulmonary Artery Pressure 35/22 Cardiac Output 4.8 Cardiac Index 2.6 - Exam GENERAL DESCRIPTION: Middle-aged female intubated on the vent RESPIRATORY SYSTEM: Unlabored breathing , decreased breath sounds at bases HEART: S1 S2 regular rate and rhythm , ABDOMEN: Soft , no tenderness EXTREMITIES: No edema feet - Labs CBC & Chem 7: 02/20/22 04:10 02/20/22 04:10 Labs: Abnormal Lab Results - Last 24 Hours (Table) 02/17/22 02/18/22 02/18/22 Range/Units 06:59 08:39 09:13 WBC (3.8-10.6) k/uL RBC (3.80-5.40) m/uL Hgb (11.4-16.0) gm/dL Hct (34.0-46.0) % MCV (80.0-100.0) fL MCH (25.0-35.0) pg RDW (11.5-15.5) % Plt Count (150-450) k/uL Lymphocytes # (1.0-4.8) k/uL APTT (22.0-30.0) sec ABG pH (7.35-7.45) ABG pCO2 34 L (35-45) mmHg ABG pO2 195 H 357 H (83-108) mmHg ABG Total CO2 (19-24) mmol/L ABG O2 Saturation 99.6 H 100.0 H (94-97) % ABG Hematocrit 19 L* 19 L* (34.0-46.0) % ABG Potassium 3.3 L (3.4-4.5) mmol/L ABG Ionized Calcium 4.4 L 4.4 L (4.5-5.3) mg/dL ABG Glucose 113 H 129 H (75-99) mg/dL ABG Lactic Acid 0.4 L (0.5-1.6) mmol/L Hemoglobin 6.2 L* 6.2 L* (11.4-16.0) gm/dL Chloride (98-107) mmol/L Carbon Dioxide (22-30) mmol/L BUN (7-17) mg/dL Creatinine (0.52-1.04) mg/dL Glucose (74-99) mg/dL POC Glucose (mg/dL) (70-110) mg/dL Calcium (8.4-10.2) mg/dL Magnesium (1.6-2.3) mg/dL Total Bilirubin (0.2-1.3) mg/dL Alkaline Phosphatase (38-126) U/L Total Protein (6.3-8.2) g/dL Albumin (3.5-5.0) g/dL Arterial Blood Potassium 3.3 L (3.4-4.5) mmol/L Arterial Blood Glucose 113 H 129 H (75-99) mg/dL Crossmatch See Detail 02/18/22 02/18/22 02/18/22 Range/Units 09:28 10:03 10:32 WBC (3.8-10.6) k/uL RBC (3.80-5.40) m/uL Hgb (11.4-16.0) gm/dL Hct (34.0-46.0) % MCV (80.0-100.0) fL MCH (25.0-35.0) pg RDW (11.5-15.5) % Plt Count (150-450) k/uL Lymphocytes # (1.0-4.8) k/uL APTT (22.0-30.0) sec ABG pH 7.26 L 7.33 L (7.35-7.45) ABG pCO2 32 L 49 H (35-45) mmHg ABG pO2 368 H 209 H 279 H (83-108) mmHg ABG Total CO2 (19-24) mmol/L ABG O2 Saturation 100.0 H 99.4 H 99.7 H (94-97) % ABG Hematocrit 21 L 23 L 26 L (34.0-46.0) % ABG Potassium (3.4-4.5) mmol/L ABG Ionized Calcium 3.7 L 4.4 L 4.3 L (4.5-5.3) mg/dL ABG Glucose 138 H 151 H 148 H (75-99) mg/dL ABG Lactic Acid (0.5-1.6) mmol/L Hemoglobin 6.7 L* 7.4 L 8.6 L (11.4-16.0) gm/dL Chloride (98-107) mmol/L Carbon Dioxide (22-30) mmol/L BUN (7-17) mg/dL Creatinine (0.52-1.04) mg/dL Glucose (74-99) mg/dL POC Glucose (mg/dL) (70-110) mg/dL Calcium (8.4-10.2) mg/dL Magnesium (1.6-2.3) mg/dL Total Bilirubin (0.2-1.3) mg/dL Alkaline Phosphatase (38-126) U/L Total Protein (6.3-8.2) g/dL Albumin (3.5-5.0) g/dL Arterial Blood Potassium (3.4-4.5) mmol/L Arterial Blood Glucose 138 H 151 H 148 H (75-99) mg/dL Crossmatch 02/18/22 02/18/22 02/18/22 Range/Units 11:18 11:51 12:51 WBC (3.8-10.6) k/uL RBC 2.95 L (3.80-5.40) m/uL Hgb 7.4 L (11.4-16.0) gm/dL Hct 23.0 L (34.0-46.0) % MCV 77.9 L (80.0-100.0) fL MCH 24.9 L (25.0-35.0) pg RDW 20.4 H (11.5-15.5) % Plt Count 76 L (150-450) k/uL Lymphocytes # 0.3 L (1.0-4.8) k/uL APTT (22.0-30.0) sec ABG pH (7.35-7.45) ABG pCO2 (35-45) mmHg ABG pO2 274 H 301 H (83-108) mmHg ABG Total CO2 (19-24) mmol/L ABG O2 Saturation 100.0 H 99.8 H (94-97) % ABG Hematocrit 23 L 23 L (34.0-46.0) % ABG Potassium (3.4-4.5) mmol/L ABG Ionized Calcium (4.5-5.3) mg/dL ABG Glucose 168 H 163 H (75-99) mg/dL ABG Lactic Acid (0.5-1.6) mmol/L Hemoglobin 7.5 L 7.5 L (11.4-16.0) gm/dL Chloride (98-107) mmol/L Carbon Dioxide (22-30) mmol/L BUN (7-17) mg/dL Creatinine (0.52-1.04) mg/dL Glucose (74-99) mg/dL POC Glucose (mg/dL) (70-110) mg/dL Calcium (8.4-10.2) mg/dL Magnesium (1.6-2.3) mg/dL Total Bilirubin (0.2-1.3) mg/dL Alkaline Phosphatase (38-126) U/L Total Protein (6.3-8.2) g/dL Albumin (3.5-5.0) g/dL Arterial Blood Potassium (3.4-4.5) mmol/L Arterial Blood Glucose 168 H 163 H (75-99) mg/dL Crossmatch 02/18/22 02/18/22 02/18/22 Range/Units 12:51 13:21 13:23 WBC (3.8-10.6) k/uL RBC (3.80-5.40) m/uL Hgb (11.4-16.0) gm/dL Hct (34.0-46.0) % MCV (80.0-100.0) fL MCH (25.0-35.0) pg RDW (11.5-15.5) % Plt Count (150-450) k/uL Lymphocytes # (1.0-4.8) k/uL APTT (22.0-30.0) sec ABG pH (7.35-7.45) ABG pCO2 (35-45) mmHg ABG pO2 >400 H (83-108) mmHg ABG Total CO2 (19-24) mmol/L ABG O2 Saturation 100.0 H (94-97) % ABG Hematocrit (34.0-46.0) % ABG Potassium (3.4-4.5) mmol/L ABG Ionized Calcium (4.5-5.3) mg/dL ABG Glucose (75-99) mg/dL ABG Lactic Acid (0.5-1.6) mmol/L Hemoglobin (11.4-16.0) gm/dL Chloride 109 H (98-107) mmol/L Carbon Dioxide (22-30) mmol/L BUN 18 H (7-17) mg/dL Creatinine (0.52-1.04) mg/dL Glucose 168 H (74-99) mg/dL POC Glucose (mg/dL) 163 H (70-110) mg/dL Calcium 7.3 L (8.4-10.2) mg/dL Magnesium 4.2 H (1.6-2.3) mg/dL Total Bilirubin (0.2-1.3) mg/dL Alkaline Phosphatase (38-126) U/L Total Protein 4.3 L (6.3-8.2) g/dL Albumin 1.8 L (3.5-5.0) g/dL Arterial Blood Potassium (3.4-4.5) mmol/L Arterial Blood Glucose (75-99) mg/dL Crossmatch 02/18/22 02/18/22 02/18/22 Range/Units 14:55 15:06 16:21 WBC (3.8-10.6) k/uL RBC 2.27 L (3.80-5.40) m/uL Hgb 5.7 L* D (11.4-16.0) gm/dL Hct 17.8 L* (34.0-46.0) % MCV 78.2 L (80.0-100.0) fL MCH (25.0-35.0) pg RDW 20.3 H (11.5-15.5) % Plt Count 77 L (150-450) k/uL Lymphocytes # (1.0-4.8) k/uL APTT (22.0-30.0) sec ABG pH (7.35-7.45) ABG pCO2 (35-45) mmHg ABG pO2 (83-108) mmHg ABG Total CO2 (19-24) mmol/L ABG O2 Saturation (94-97) % ABG Hematocrit (34.0-46.0) % ABG Potassium (3.4-4.5) mmol/L ABG Ionized Calcium (4.5-5.3) mg/dL ABG Glucose (75-99) mg/dL ABG Lactic Acid (0.5-1.6) mmol/L Hemoglobin (11.4-16.0) gm/dL Chloride (98-107) mmol/L Carbon Dioxide (22-30) mmol/L BUN (7-17) mg/dL Creatinine (0.52-1.04) mg/dL Glucose (74-99) mg/dL POC Glucose (mg/dL) 171 H 190 H (70-110) mg/dL Calcium (8.4-10.2) mg/dL Magnesium (1.6-2.3) mg/dL Total Bilirubin (0.2-1.3) mg/dL Alkaline Phosphatase (38-126) U/L Total Protein (6.3-8.2) g/dL Albumin (3.5-5.0) g/dL Arterial Blood Potassium (3.4-4.5) mmol/L Arterial Blood Glucose (75-99) mg/dL Crossmatch 02/18/22 02/18/22 02/18/22 Range/Units 17:24 17:25 17:25 WBC (3.8-10.6) k/uL RBC 2.80 L (3.80-5.40) m/uL Hgb 7.0 L (11.4-16.0) gm/dL Hct 22.3 L (34.0-46.0) % MCV 79.6 L (80.0-100.0) fL MCH (25.0-35.0) pg RDW 18.9 H (11.5-15.5) % Plt Count 84 L (150-450) k/uL Lymphocytes # 0.4 L (1.0-4.8) k/uL APTT 33.6 H (22.0-30.0) sec ABG pH (7.35-7.45) ABG pCO2 (35-45) mmHg ABG pO2 157 H (83-108) mmHg ABG Total CO2 25 H (19-24) mmol/L ABG O2 Saturation 99.9 H (94-97) % ABG Hematocrit (34.0-46.0) % ABG Potassium (3.4-4.5) mmol/L ABG Ionized Calcium (4.5-5.3) mg/dL ABG Glucose (75-99) mg/dL ABG Lactic Acid (0.5-1.6) mmol/L Hemoglobin (11.4-16.0) gm/dL Chloride (98-107) mmol/L Carbon Dioxide (22-30) mmol/L BUN (7-17) mg/dL Creatinine (0.52-1.04) mg/dL Glucose (74-99) mg/dL POC Glucose (mg/dL) (70-110) mg/dL Calcium (8.4-10.2) mg/dL Magnesium (1.6-2.3) mg/dL Total Bilirubin (0.2-1.3) mg/dL Alkaline Phosphatase (38-126) U/L Total Protein (6.3-8.2) g/dL Albumin (3.5-5.0) g/dL Arterial Blood Potassium (3.4-4.5) mmol/L Arterial Blood Glucose (75-99) mg/dL Crossmatch 02/18/22 02/18/22 02/18/22 Range/Units 17:25 17:32 18:48 WBC (3.8-10.6) k/uL RBC (3.80-5.40) m/uL Hgb (11.4-16.0) gm/dL Hct (34.0-46.0) % MCV (80.0-100.0) fL MCH (25.0-35.0) pg RDW (11.5-15.5) % Plt Count (150-450) k/uL Lymphocytes # (1.0-4.8) k/uL APTT (22.0-30.0) sec ABG pH (7.35-7.45) ABG pCO2 (35-45) mmHg ABG pO2 (83-108) mmHg ABG Total CO2 (19-24) mmol/L ABG O2 Saturation (94-97) % ABG Hematocrit (34.0-46.0) % ABG Potassium (3.4-4.5) mmol/L ABG Ionized Calcium (4.5-5.3) mg/dL ABG Glucose (75-99) mg/dL ABG Lactic Acid (0.5-1.6) mmol/L Hemoglobin (11.4-16.0) gm/dL Chloride 109 H (98-107) mmol/L Carbon Dioxide 21 L (22-30) mmol/L BUN 20 H (7-17) mg/dL Creatinine (0.52-1.04) mg/dL Glucose 149 H (74-99) mg/dL POC Glucose (mg/dL) 154 H 125 H (70-110) mg/dL Calcium 6.8 L (8.4-10.2) mg/dL Magnesium 3.5 H (1.6-2.3) mg/dL Total Bilirubin 1.5 H (0.2-1.3) mg/dL Alkaline Phosphatase 32 L (38-126) U/L Total Protein 4.1 L (6.3-8.2) g/dL Albumin 1.9 L (3.5-5.0) g/dL Arterial Blood Potassium (3.4-4.5) mmol/L Arterial Blood Glucose (75-99) mg/dL Crossmatch 02/18/22 02/18/22 02/18/22 Range/Units 19:40 19:57 20:49 WBC (3.8-10.6) k/uL RBC (3.80-5.40) m/uL Hgb (11.4-16.0) gm/dL Hct (34.0-46.0) % MCV (80.0-100.0) fL MCH (25.0-35.0) pg RDW (11.5-15.5) % Plt Count (150-450) k/uL Lymphocytes # (1.0-4.8) k/uL APTT (22.0-30.0) sec ABG pH (7.35-7.45) ABG pCO2 (35-45) mmHg ABG pO2 176 H (83-108) mmHg ABG Total CO2 25 H (19-24) mmol/L ABG O2 Saturation 99.8 H (94-97) % ABG Hematocrit (34.0-46.0) % ABG Potassium (3.4-4.5) mmol/L ABG Ionized Calcium (4.5-5.3) mg/dL ABG Glucose (75-99) mg/dL ABG Lactic Acid (0.5-1.6) mmol/L Hemoglobin (11.4-16.0) gm/dL Chloride (98-107) mmol/L Carbon Dioxide (22-30) mmol/L BUN (7-17) mg/dL Creatinine (0.52-1.04) mg/dL Glucose (74-99) mg/dL POC Glucose (mg/dL) 117 H 114 H (70-110) mg/dL Calcium (8.4-10.2) mg/dL Magnesium (1.6-2.3) mg/dL Total Bilirubin (0.2-1.3) mg/dL Alkaline Phosphatase (38-126) U/L Total Protein (6.3-8.2) g/dL Albumin (3.5-5.0) g/dL Arterial Blood Potassium (3.4-4.5) mmol/L Arterial Blood Glucose (75-99) mg/dL Crossmatch 02/18/22 02/18/22 02/18/22 Range/Units 21:48 21:48 22:57 WBC (3.8-10.6) k/uL RBC 2.33 L (3.80-5.40) m/uL Hgb 6.2 L* (11.4-16.0) gm/dL Hct 18.9 L* (34.0-46.0) % MCV (80.0-100.0) fL MCH (25.0-35.0) pg RDW 18.8 H (11.5-15.5) % Plt Count 77 L (150-450) k/uL Lymphocytes # (1.0-4.8) k/uL APTT (22.0-30.0) sec ABG pH (7.35-7.45) ABG pCO2 (35-45) mmHg ABG pO2 (83-108) mmHg ABG Total CO2 (19-24) mmol/L ABG O2 Saturation (94-97) % ABG Hematocrit (34.0-46.0) % ABG Potassium (3.4-4.5) mmol/L ABG Ionized Calcium (4.5-5.3) mg/dL ABG Glucose (75-99) mg/dL ABG Lactic Acid (0.5-1.6) mmol/L Hemoglobin (11.4-16.0) gm/dL Chloride (98-107) mmol/L Carbon Dioxide (22-30) mmol/L BUN (7-17) mg/dL Creatinine (0.52-1.04) mg/dL Glucose (74-99) mg/dL POC Glucose (mg/dL) 131 H 130 H (70-110) mg/dL Calcium (8.4-10.2) mg/dL Magnesium (1.6-2.3) mg/dL Total Bilirubin (0.2-1.3) mg/dL Alkaline Phosphatase (38-126) U/L Total Protein (6.3-8.2) g/dL Albumin (3.5-5.0) g/dL Arterial Blood Potassium (3.4-4.5) mmol/L Arterial Blood Glucose (75-99) mg/dL Crossmatch 02/18/22 02/19/22 02/19/22 Range/Units 23:50 00:53 02:01 WBC (3.8-10.6) k/uL RBC (3.80-5.40) m/uL Hgb (11.4-16.0) gm/dL Hct (34.0-46.0) % MCV (80.0-100.0) fL MCH (25.0-35.0) pg RDW (11.5-15.5) % Plt Count (150-450) k/uL Lymphocytes # (1.0-4.8) k/uL APTT (22.0-30.0) sec ABG pH (7.35-7.45) ABG pCO2 (35-45) mmHg ABG pO2 (83-108) mmHg ABG Total CO2 (19-24) mmol/L ABG O2 Saturation (94-97) % ABG Hematocrit (34.0-46.0) % ABG Potassium (3.4-4.5) mmol/L ABG Ionized Calcium (4.5-5.3) mg/dL ABG Glucose (75-99) mg/dL ABG Lactic Acid (0.5-1.6) mmol/L Hemoglobin (11.4-16.0) gm/dL Chloride (98-107) mmol/L Carbon Dioxide (22-30) mmol/L BUN (7-17) mg/dL Creatinine (0.52-1.04) mg/dL Glucose (74-99) mg/dL POC Glucose (mg/dL) 125 H 124 H 120 H (70-110) mg/dL Calcium (8.4-10.2) mg/dL Magnesium (1.6-2.3) mg/dL Total Bilirubin (0.2-1.3) mg/dL Alkaline Phosphatase (38-126) U/L Total Protein (6.3-8.2) g/dL Albumin (3.5-5.0) g/dL Arterial Blood Potassium (3.4-4.5) mmol/L Arterial Blood Glucose (75-99) mg/dL Crossmatch 02/19/22 02/19/22 02/19/22 Range/Units 02:50 02:51 04:05 WBC 3.4 L (3.8-10.6) k/uL RBC 2.40 L (3.80-5.40) m/uL Hgb 6.5 L* (11.4-16.0) gm/dL Hct 19.6 L* (34.0-46.0) % MCV (80.0-100.0) fL MCH (25.0-35.0) pg RDW 18.4 H (11.5-15.5) % Plt Count 83 L (150-450) k/uL Lymphocytes # 0.4 L (1.0-4.8) k/uL APTT (22.0-30.0) sec ABG pH (7.35-7.45) ABG pCO2 (35-45) mmHg ABG pO2 (83-108) mmHg ABG Total CO2 (19-24) mmol/L ABG O2 Saturation (94-97) % ABG Hematocrit (34.0-46.0) % ABG Potassium (3.4-4.5) mmol/L ABG Ionized Calcium (4.5-5.3) mg/dL ABG Glucose (75-99) mg/dL ABG Lactic Acid (0.5-1.6) mmol/L Hemoglobin (11.4-16.0) gm/dL Chloride 111 H (98-107) mmol/L Carbon Dioxide 21 L (22-30) mmol/L BUN 24 H (7-17) mg/dL Creatinine 1.22 H (0.52-1.04) mg/dL Glucose 103 H (74-99) mg/dL POC Glucose (mg/dL) 117 H (70-110) mg/dL Calcium 7.0 L (8.4-10.2) mg/dL Magnesium 3.3 H (1.6-2.3) mg/dL Total Bilirubin (0.2-1.3) mg/dL Alkaline Phosphatase 33 L (38-126) U/L Total Protein 3.9 L (6.3-8.2) g/dL Albumin 1.8 L (3.5-5.0) g/dL Arterial Blood Potassium (3.4-4.5) mmol/L Arterial Blood Glucose (75-99) mg/dL Crossmatch 02/19/22 02/19/22 02/19/22 Range/Units 04:10 05:05 05:44 WBC (3.8-10.6) k/uL RBC (3.80-5.40) m/uL Hgb (11.4-16.0) gm/dL Hct (34.0-46.0) % MCV (80.0-100.0) fL MCH (25.0-35.0) pg RDW (11.5-15.5) % Plt Count (150-450) k/uL Lymphocytes # (1.0-4.8) k/uL APTT (22.0-30.0) sec ABG pH (7.35-7.45) ABG pCO2 (35-45) mmHg ABG pO2 128 H (83-108) mmHg ABG Total CO2 (19-24) mmol/L ABG O2 Saturation 99.2 H (94-97) % ABG Hematocrit (34.0-46.0) % ABG Potassium (3.4-4.5) mmol/L ABG Ionized Calcium (4.5-5.3) mg/dL ABG Glucose (75-99) mg/dL ABG Lactic Acid (0.5-1.6) mmol/L Hemoglobin (11.4-16.0) gm/dL Chloride (98-107) mmol/L Carbon Dioxide (22-30) mmol/L BUN (7-17) mg/dL Creatinine (0.52-1.04) mg/dL Glucose (74-99) mg/dL POC Glucose (mg/dL) 114 H 120 H (70-110) mg/dL Calcium (8.4-10.2) mg/dL Magnesium (1.6-2.3) mg/dL Total Bilirubin (0.2-1.3) mg/dL Alkaline Phosphatase (38-126) U/L Total Protein (6.3-8.2) g/dL Albumin (3.5-5.0) g/dL Arterial Blood Potassium (3.4-4.5) mmol/L Arterial Blood Glucose (75-99) mg/dL Crossmatch 02/19/22 02/19/22 02/19/22 Range/Units 06:09 06:51 07:49 WBC (3.8-10.6) k/uL RBC (3.80-5.40) m/uL Hgb (11.4-16.0) gm/dL Hct (34.0-46.0) % MCV (80.0-100.0) fL MCH (25.0-35.0) pg RDW (11.5-15.5) % Plt Count (150-450) k/uL Lymphocytes # (1.0-4.8) k/uL APTT (22.0-30.0) sec ABG pH (7.35-7.45) ABG pCO2 (35-45) mmHg ABG pO2 (83-108) mmHg ABG Total CO2 (19-24) mmol/L ABG O2 Saturation (94-97) % ABG Hematocrit (34.0-46.0) % ABG Potassium (3.4-4.5) mmol/L ABG Ionized Calcium (4.5-5.3) mg/dL ABG Glucose (75-99) mg/dL ABG Lactic Acid (0.5-1.6) mmol/L Hemoglobin (11.4-16.0) gm/dL Chloride (98-107) mmol/L Carbon Dioxide (22-30) mmol/L BUN (7-17) mg/dL Creatinine (0.52-1.04) mg/dL Glucose (74-99) mg/dL POC Glucose (mg/dL) 123 H 123 H 112 H (70-110) mg/dL Calcium (8.4-10.2) mg/dL Magnesium (1.6-2.3) mg/dL Total Bilirubin (0.2-1.3) mg/dL Alkaline Phosphatase (38-126) U/L Total Protein (6.3-8.2) g/dL Albumin (3.5-5.0) g/dL Arterial Blood Potassium (3.4-4.5) mmol/L Arterial Blood Glucose (75-99) mg/dL Crossmatch 02/19/22 02/19/22 02/19/22 Range/Units 08:58 08:59 10:15 WBC (3.8-10.6) k/uL RBC 2.75 L (3.80-5.40) m/uL Hgb 7.6 L (11.4-16.0) gm/dL Hct 22.8 L (34.0-46.0) % MCV (80.0-100.0) fL MCH (25.0-35.0) pg RDW 18.3 H (11.5-15.5) % Plt Count 100 L (150-450) k/uL Lymphocytes # (1.0-4.8) k/uL APTT (22.0-30.0) sec ABG pH (7.35-7.45) ABG pCO2 (35-45) mmHg ABG pO2 (83-108) mmHg ABG Total CO2 (19-24) mmol/L ABG O2 Saturation (94-97) % ABG Hematocrit (34.0-46.0) % ABG Potassium (3.4-4.5) mmol/L ABG Ionized Calcium (4.5-5.3) mg/dL ABG Glucose (75-99) mg/dL ABG Lactic Acid (0.5-1.6) mmol/L Hemoglobin (11.4-16.0) gm/dL Chloride (98-107) mmol/L Carbon Dioxide (22-30) mmol/L BUN (7-17) mg/dL Creatinine (0.52-1.04) mg/dL Glucose (74-99) mg/dL POC Glucose (mg/dL) 115 H 118 H (70-110) mg/dL Calcium (8.4-10.2) mg/dL Magnesium (1.6-2.3) mg/dL Total Bilirubin (0.2-1.3) mg/dL Alkaline Phosphatase (38-126) U/L Total Protein (6.3-8.2) g/dL Albumin (3.5-5.0) g/dL Arterial Blood Potassium (3.4-4.5) mmol/L Arterial Blood Glucose (75-99) mg/dL Crossmatch 02/19/22 02/19/22 Range/Units 11:22 13:16 WBC (3.8-10.6) k/uL RBC (3.80-5.40) m/uL Hgb (11.4-16.0) gm/dL Hct (34.0-46.0) % MCV (80.0-100.0) fL MCH (25.0-35.0) pg RDW (11.5-15.5) % Plt Count (150-450) k/uL Lymphocytes # (1.0-4.8) k/uL APTT (22.0-30.0) sec ABG pH (7.35-7.45) ABG pCO2 (35-45) mmHg ABG pO2 (83-108) mmHg ABG Total CO2 (19-24) mmol/L ABG O2 Saturation (94-97) % ABG Hematocrit (34.0-46.0) % ABG Potassium (3.4-4.5) mmol/L ABG Ionized Calcium (4.5-5.3) mg/dL ABG Glucose (75-99) mg/dL ABG Lactic Acid (0.5-1.6) mmol/L Hemoglobin (11.4-16.0) gm/dL Chloride (98-107) mmol/L Carbon Dioxide (22-30) mmol/L BUN (7-17) mg/dL Creatinine (0.52-1.04) mg/dL Glucose (74-99) mg/dL POC Glucose (mg/dL) 116 H 112 H (70-110) mg/dL Calcium (8.4-10.2) mg/dL Magnesium (1.6-2.3) mg/dL Total Bilirubin (0.2-1.3) mg/dL Alkaline Phosphatase (38-126) U/L Total Protein (6.3-8.2) g/dL Albumin (3.5-5.0) g/dL Arterial Blood Potassium (3.4-4.5) mmol/L Arterial Blood Glucose (75-99) mg/dL Crossmatch Microbiology - Last 24 Hours (Table) 02/18/22 12:01 Gram Stain - Preliminary Heart Valve Tissue Culture - Preliminary 02/18/22 12:01 Anaerobic Culture - Preliminary Heart Valve Assessment and Plan (1) Sepsis Current Visit: Yes Status: Acute Code(s): A41.9 - SEPSIS, UNSPECIFIED ORGANISM SNOMED Code(s): 70816922 Plan: 1patient presented to hospital with sepsis in this patient did have a fever tachycardia tachypnea with evidence of vegetation on aortic wall 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
--- NOTE | 2022-02-20 07:33 | XR ---
EXAMINATION TYPE: XR chest 1V portable DATE OF EXAM: 02/20/2022 6:12 AM COMPARISON: Chest radiographs from 02/19/2022 TECHNIQUE: XR chest 1V portable Frontal view of the chest. CLINICAL INDICATION:Female, 36 years old with history of Post Operative Cardiac Surgery; FINDINGS: Lungs/Pleura: Streaky atelectasis seen in the lung bases. There is no evidence of pleural effusion, f ocal consolidation, or pneumothorax. Pulmonary vascularity: Unremarkable. Heart/mediastinum: Cardiomediastinal silhouette is unremarkable. Left atrial appendage occlusion tennille ce is present. Musculoskeletal: No acute osseous pathology. Midline sternotomy wires are noted. Other findings: None Lines/Tubes: Interval removal of the endotracheal tube. Interval removal of the enteric tube, There is a Roscoe-Rajni catheter with tip which appears to been retracted. Drainage tubes with tips projecting over the mediastinum. Bilateral thoracotomy tubes are present without evidence of pneumothorax. IMPRESSION: 1. Postsurgical changes with streaky atelectasis in the right mid and lower lung. 2. Roscoe-Rajni catheter appears to have been retracted.
--- NOTE | 2022-02-20 07:36 | P.PN ---
Subjective Progress Note Date: 02/20/22 Principal diagnosis: Status post open heart surgery This is a 36-year-old female patient was diagnosed recently with infective endocarditis and she underwent an aortic valve replacement using 23 mm On-X mechanical valve. The patient was seen this morning. She seems to be overall stable. Her hemoglobin this morning is above 8. Kidney function is stable as well. The chest x-ray was reviewed. Overall the patient seems to be stable. She has been maintaining normal sinus mechanism. Urine output is good as well. She is on aspirin as well as beta bryan as well as a statin. We'll continue the current medical regimen and continue following up with the patient Objective - Vital Signs Vital signs: Vital Signs Temp 97.7 F 02/20/22 04:00 Pulse 88 02/20/22 07:00 Resp 24 02/20/22 07:00 BP 95/44 02/19/22 07:07 Pulse Ox 99 02/20/22 07:00 FiO2 35 02/19/22 14:00 Intake & Output 02/19/22 02/20/22 02/20/22 18:59 06:59 18:59 Intake Total 9873.349 4579.477 299 Output Total 1485 1070 40 Balance 63.025 567.477 259 Weight 76.8 kg Intake: IV 764 908 59 CO/CI 120 100 Cefepime 2 gm In Sodium 100 Chloride 0.9% 100 ml @ 25 mls/hr IVPB Q8HR [facility] Rx# :[id number] Lactated Ringers 1,000 ml 545 600 50 @ 20 mls/hr IV .Q24H [facility] Rx#:[id number] NS Pressure Tubing 99 108 9 Intake, IV Titration 305.025 9.477 Amount Dexmedetomidine/0.9% NaCl 127.236 (Pmx) 400 mcg In Empty Bag 1 bag @ 0.2 MCG/KG/HR 3.68 mls/hr IV .Q24H [facility] Rx#:[id number] Insulin Regular 100 unit 1.591 9.477 In Sodium Chloride 0.9% 100 ml @ Per Protocol IV .Q0M [facility] Rx#:[id number] propofoL 1,000 mg In 176.198 Empty Bag 1 bag @ Titrate IV .Q0M [facility] Rx#: [id number] Oral 200 720 240 Blood Product 279 Rc Pheresis As-3 Unit 279 [id number] Output: Chest Tube Drainage 1010 590 20 Chest Tube Left Pleural/ 200 200 10 Mediastinal Chest Tube Mediastinal 20 10 0 Chest Tube Right 690 290 10 Chest Tube Right Right 100 90 0 Pleural/Mediastinal Urine 475 480 20 Other: Voiding Method Indwelling Catheter Indwelling Catheter ABP, PAP, CO, CI - Last Documented Arterial Blood Pressure 116/62 Pulmonary Artery Pressure 24/9 Cardiac Output 6.5 Cardiac Index 3.5 - Constitutional General appearance: Present: no acute distress - Respiratory Respiratory: bilateral: diminished - Cardiovascular Rhythm: regular - Labs CBC & Chem 7: 02/20/22 04:10 02/20/22 04:10 Labs: Abnormal Lab Results - Last 24 Hours (Table) 02/19/22 02/19/22 02/19/22 Range/Units 07:49 08:58 08:59 RBC 2.75 L (3.80-5.40) m/uL Hgb 7.6 L (11.4-16.0) gm/dL Hct 22.8 L (34.0-46.0) % RDW 18.3 H (11.5-15.5) % Plt Count 100 L (150-450) k/uL Lymphocytes # (1.0-4.8) k/uL ABG O2 Saturation (94-97) % Sodium (137-145) mmol/L Chloride (98-107) mmol/L Carbon Dioxide (22-30) mmol/L BUN (7-17) mg/dL Creatinine (0.52-1.04) mg/dL Glucose (74-99) mg/dL POC Glucose (mg/dL) 112 H 115 H (70-110) mg/dL Calcium (8.4-10.2) mg/dL AST (14-36) U/L Total Protein (6.3-8.2) g/dL Albumin (3.5-5.0) g/dL 02/19/22 02/19/22 02/19/22 Range/Units 10:15 11:22 13:16 RBC (3.80-5.40) m/uL Hgb (11.4-16.0) gm/dL Hct (34.0-46.0) % RDW (11.5-15.5) % Plt Count (150-450) k/uL Lymphocytes # (1.0-4.8) k/uL ABG O2 Saturation (94-97) % Sodium (137-145) mmol/L Chloride (98-107) mmol/L Carbon Dioxide (22-30) mmol/L BUN (7-17) mg/dL Creatinine (0.52-1.04) mg/dL Glucose (74-99) mg/dL POC Glucose (mg/dL) 118 H 116 H 112 H (70-110) mg/dL Calcium (8.4-10.2) mg/dL AST (14-36) U/L Total Protein (6.3-8.2) g/dL Albumin (3.5-5.0) g/dL 02/19/22 02/19/22 02/19/22 Range/Units 13:56 15:16 16:47 RBC (3.80-5.40) m/uL Hgb (11.4-16.0) gm/dL Hct (34.0-46.0) % RDW (11.5-15.5) % Plt Count (150-450) k/uL Lymphocytes # (1.0-4.8) k/uL ABG O2 Saturation 97.1 H (94-97) % Sodium (137-145) mmol/L Chloride (98-107) mmol/L Carbon Dioxide (22-30) mmol/L BUN (7-17) mg/dL Creatinine (0.52-1.04) mg/dL Glucose (74-99) mg/dL POC Glucose (mg/dL) 124 H 129 H (70-110) mg/dL Calcium (8.4-10.2) mg/dL AST (14-36) U/L Total Protein (6.3-8.2) g/dL Albumin (3.5-5.0) g/dL 02/19/22 02/19/22 02/19/22 Range/Units 18:35 20:17 21:57 RBC (3.80-5.40) m/uL Hgb (11.4-16.0) gm/dL Hct (34.0-46.0) % RDW (11.5-15.5) % Plt Count (150-450) k/uL Lymphocytes # (1.0-4.8) k/uL ABG O2 Saturation (94-97) % Sodium (137-145) mmol/L Chloride (98-107) mmol/L Carbon Dioxide (22-30) mmol/L BUN (7-17) mg/dL Creatinine (0.52-1.04) mg/dL Glucose (74-99) mg/dL POC Glucose (mg/dL) 125 H 125 H 126 H (70-110) mg/dL Calcium (8.4-10.2) mg/dL AST (14-36) U/L Total Protein (6.3-8.2) g/dL Albumin (3.5-5.0) g/dL 02/20/22 02/20/22 02/20/22 Range/Units 00:13 02:06 04:10 RBC 2.98 L (3.80-5.40) m/uL Hgb 8.3 L (11.4-16.0) gm/dL Hct 24.8 L (34.0-46.0) % RDW 18.8 H (11.5-15.5) % Plt Count (150-450) k/uL Lymphocytes # 0.5 L (1.0-4.8) k/uL ABG O2 Saturation (94-97) % Sodium (137-145) mmol/L Chloride (98-107) mmol/L Carbon Dioxide (22-30) mmol/L BUN (7-17) mg/dL Creatinine (0.52-1.04) mg/dL Glucose (74-99) mg/dL POC Glucose (mg/dL) 120 H 117 H (70-110) mg/dL Calcium (8.4-10.2) mg/dL AST (14-36) U/L Total Protein (6.3-8.2) g/dL Albumin (3.5-5.0) g/dL 02/20/22 02/20/22 02/20/22 Range/Units 04:10 04:12 06:04 RBC (3.80-5.40) m/uL Hgb (11.4-16.0) gm/dL Hct (34.0-46.0) % RDW (11.5-15.5) % Plt Count (150-450) k/uL Lymphocytes # (1.0-4.8) k/uL ABG O2 Saturation (94-97) % Sodium 135 L (137-145) mmol/L Chloride 109 H (98-107) mmol/L Carbon Dioxide 18 L (22-30) mmol/L BUN 30 H (7-17) mg/dL Creatinine 1.11 H (0.52-1.04) mg/dL Glucose 116 H (74-99) mg/dL POC Glucose (mg/dL) 123 H 134 H (70-110) mg/dL Calcium 7.7 L (8.4-10.2) mg/dL AST 38 H (14-36) U/L Total Protein 4.7 L (6.3-8.2) g/dL Albumin 2.1 L (3.5-5.0) g/dL Microbiology - Last 24 Hours (Table) 02/18/22 12:01 Gram Stain - Preliminary Heart Valve Tissue Culture - Preliminary Assessment and Plan Assessment: Assessment #1 infective endocarditis #2 status post aVR using mechanical valve #3 respiratory failure which has resolved #4 anemia which has been stable Plan #1 continue the current medical regimen #2 continue monitor the kidney function and electrolytes #3 follow-up with the patient
[2022-02-20 08:25] LABS: INR 0.9 (<1.2); Partial Thromboplastin Time 27.8 sec (22.0-30.0); Prothrombin Time 10.3 sec (9.0-12.0)
[2022-02-20] MEDS: ASPIRIN 325 MG TAB PO SCH (08:37)
[2022-02-20] MEDS: PANTOPRAZOLE 40 MG TABLET PO SCH (08:37)
[2022-02-20] MEDS: ATORVASTATIN 40 MG TAB PO SCH (08:37)
[2022-02-20] MEDS: ACETAMINOPHEN IV (For NPO) 1,000 MG in EMPTY BAG 1 BAG IVPB SCH ×3 (08:43→20:44)
[2022-02-20] MEDS: FUROSEMIDE 10 MG/ML 2 ML VIAL IV SCH ×3 (08:46→23:39)
[2022-02-20] MEDS: POTASSIUM CHLORIDE ER 10 MEQ TAB.ER.PRT PO SCH (08:48)
[2022-02-20] MEDS: METOPROLOL TARTRATE 25 MG TAB PO SCH ×2 (08:48→20:45)
[2022-02-20] MEDS: LACTATED RINGERS 1,000 ML IV SCH (09:00)
[2022-02-20] MEDS: IPRATROPIUM-ALBUTEROL 3 ML NEB INHALATION SCH ×4 (09:11→20:26)
[2022-02-20] MEDS: CHOLESTYRAMINE (WITH SUGAR) 4 GM PACKET PO SCH ×2 (10:01→18:43)
--- NOTE | 2022-02-20 10:42 | P.PN ---
Subjective Progress Note Date: 02/20/22 Principal diagnosis: Endocarditis On 02/20/2022 patient seen in follow-up in intensive care unit, she is postoperative day #2, status post aortic valve replacement, with the mechanical aortic valve, patch closure of the aortotomy with involving pericardium, and debridement of some annular infected tissue as well as left atrial appendage ligation. Patient is awake and alert, she was successfully weaned and extubated from the mechanical ventilator yesterday on 02/19/2022. She is breathing comfortably, room air pulse ox is 94-96%, she is afebrile, hemodynamically she is stable, she is on lactated Ringer's at a rate of 20 ML per hour, and antibiotics with cefepime, no vasopressor support. Yesterday she had another right-sided chest tube placed by CT surgery team. Currently has [address], one mediastinal, 1 left pleural/mediastinal, 1 right pleural, and one right pleural mediastinal chest tubes, no air leak noted. Still draining serosanguineous output, with at least output from the mediastinal chest tube. Today's chest x-ray showing postsurgical changes and streaky atelectasis in the right mid and lower lung. Patient is only achieving 300 mL on the incentive spirometer, she is having significant postsurgical pain. She is receiving pain medications. Patient has been up out of bed in the chair, tolerated activity fairly well. Urinary catheter is in place, patient is producing urine in the order of 20-30 ML per hour. She has been started on diuretics by CT surgery. Today's labs have been reviewed, white blood cell count is 8.4, hemoglobin is 8.3, platelet count is 152, sodium is 135, potassium is 4.5, chloride is 109, CO2 is 18, BUN is 30 creatinine is 1.11. Objective - Vital Signs Vital signs: Vital Signs Temp 98.2 F 02/20/22 09:00 Pulse 75 02/20/22 10:00 Resp 26 H 02/20/22 10:00 BP 122/71 02/20/22 09:00 Pulse Ox 94 L 02/20/22 10:00 FiO2 35 02/19/22 14:00 Intake & Output 02/19/22 02/20/22 02/20/22 18:59 06:59 18:59 Intake Total 0033.778 1045.477 593 Output Total 1485 1070 270 Balance 63.025 567.477 323 Weight 76.8 kg Intake: IV 764 908 353 ACETAMINOPHEN IV (For NPO 100 ) 1,000 mg In Empty Bag 1 bag @ 400 mls/hr IVPB Q6H [facility] Rx#:[id number] CO/CI 120 100 Cefepime 2 gm In Sodium 100 100 Chloride 0.9% 100 ml @ 25 mls/hr IVPB Q8HR [facility] Rx# :[id number] Lactated Ringers 1,000 ml 545 600 120 @ 20 mls/hr IV .Q24H [facility] Rx#:[id number] NS Pressure Tubing 99 108 33 Intake, IV Titration 305.025 9.477 Amount Dexmedetomidine/0.9% NaCl 127.236 (Pmx) 400 mcg In Empty Bag 1 bag @ 0.2 MCG/KG/HR 3.68 mls/hr IV .Q24H [facility] Rx#:[id number] Insulin Regular 100 unit 1.591 9.477 In Sodium Chloride 0.9% 100 ml @ Per Protocol IV .Q0M [facility] Rx#:[id number] propofoL 1,000 mg In 176.198 Empty Bag 1 bag @ Titrate IV .Q0M [facility] Rx#: [id number] Oral 200 720 240 Blood Product 279 Rc Pheresis As-3 Unit 279 [id number] Output: Chest Tube Drainage 1010 590 100 Chest Tube Left Pleural/ 200 200 30 Mediastinal Chest Tube Mediastinal 20 10 0 Chest Tube Right 690 290 20 Chest Tube Right Right 100 90 50 Pleural/Mediastinal Urine 475 480 170 Other: Voiding Method Indwelling Catheter Indwelling Catheter Indwelling Catheter ABP, PAP, CO, CI - Last Documented Arterial Blood Pressure 126/73 Pulmonary Artery Pressure 26/8 Cardiac Output 6.5 Cardiac Index 3.5 - Exam GENERAL EXAM: Alert, very pleasant, 36-year-old white female, on 2 L of oxygen moderate amount of distress from postsurgical pain in her chest incisions and chest tube sites, awake and alert, oriented 3, answering questions appropriately HEAD: Normocephalic/atraumatic. EYES: Normal reaction of pupils, equal size. Conjunctiva pink, sclera white. NOSE: Clear with pink turbinates. THROAT: No erythema or exudates. NECK: No masses, no JVD, no thyroid enlargement, no adenopathy. CHEST: No chest wall deformity. Symmetrical expansion. Mr. incisions clean dry and intact, [address], including mediastinal, 2 right pleural, and left pleural chest tube LUNGS: Equal air entry with no crackles, wheeze, rhonchi or dullness. CVS: Regular rate and rhythm, normal S1 and S2, no gallops, no murmurs, no rubs ABDOMEN: Soft, nontender. No hepatosplenomegaly, normal bowel sounds, no guarding or rigidity. EXTREMITIES: No clubbing, no edema, no cyanosis, 2+ pulses and upper and lower extremities. MUSCULOSKELETAL: Muscle strength and tone normal. SPINE: No scoliosis or deformity SKIN: No rashes CENTRAL NERVOUS SYSTEM: Alert and oriented -3. No focal deficits, tone is normal in all 4 extremities. PSYCHIATRIC: Alert and oriented -3. Appropriate affect. Intact judgment and insight. - Labs CBC & Chem 7: 02/20/22 04:10 02/20/22 04:10 Labs: Abnormal Lab Results - Last 24 Hours (Table) 02/19/22 02/19/22 02/19/22 Range/Units 11:22 13:16 13:56 RBC (3.80-5.40) m/uL Hgb (11.4-16.0) gm/dL Hct (34.0-46.0) % RDW (11.5-15.5) % Lymphocytes # (1.0-4.8) k/uL ABG O2 Saturation 97.1 H (94-97) % Sodium (137-145) mmol/L Chloride (98-107) mmol/L Carbon Dioxide (22-30) mmol/L BUN (7-17) mg/dL Creatinine (0.52-1.04) mg/dL Glucose (74-99) mg/dL POC Glucose (mg/dL) 116 H 112 H (70-110) mg/dL Calcium (8.4-10.2) mg/dL AST (14-36) U/L Total Protein (6.3-8.2) g/dL Albumin (3.5-5.0) g/dL 02/19/22 02/19/22 02/19/22 Range/Units 15:16 16:47 18:35 RBC (3.80-5.40) m/uL Hgb (11.4-16.0) gm/dL Hct (34.0-46.0) % RDW (11.5-15.5) % Lymphocytes # (1.0-4.8) k/uL ABG O2 Saturation (94-97) % Sodium (137-145) mmol/L Chloride (98-107) mmol/L Carbon Dioxide (22-30) mmol/L BUN (7-17) mg/dL Creatinine (0.52-1.04) mg/dL Glucose (74-99) mg/dL POC Glucose (mg/dL) 124 H 129 H 125 H (70-110) mg/dL Calcium (8.4-10.2) mg/dL AST (14-36) U/L Total Protein (6.3-8.2) g/dL Albumin (3.5-5.0) g/dL 02/19/22 02/19/22 02/20/22 Range/Units 20:17 21:57 00:13 RBC (3.80-5.40) m/uL Hgb (11.4-16.0) gm/dL Hct (34.0-46.0) % RDW (11.5-15.5) % Lymphocytes # (1.0-4.8) k/uL ABG O2 Saturation (94-97) % Sodium (137-145) mmol/L Chloride (98-107) mmol/L Carbon Dioxide (22-30) mmol/L BUN (7-17) mg/dL Creatinine (0.52-1.04) mg/dL Glucose (74-99) mg/dL POC Glucose (mg/dL) 125 H 126 H 120 H (70-110) mg/dL Calcium (8.4-10.2) mg/dL AST (14-36) U/L Total Protein (6.3-8.2) g/dL Albumin (3.5-5.0) g/dL 02/20/22 02/20/22 02/20/22 Range/Units 02:06 04:10 04:10 RBC 2.98 L (3.80-5.40) m/uL Hgb 8.3 L (11.4-16.0) gm/dL Hct 24.8 L (34.0-46.0) % RDW 18.8 H (11.5-15.5) % Lymphocytes # 0.5 L (1.0-4.8) k/uL ABG O2 Saturation (94-97) % Sodium 135 L (137-145) mmol/L Chloride 109 H (98-107) mmol/L Carbon Dioxide 18 L (22-30) mmol/L BUN 30 H (7-17) mg/dL Creatinine 1.11 H (0.52-1.04) mg/dL Glucose 116 H (74-99) mg/dL POC Glucose (mg/dL) 117 H (70-110) mg/dL Calcium 7.7 L (8.4-10.2) mg/dL AST 38 H (14-36) U/L Total Protein 4.7 L (6.3-8.2) g/dL Albumin 2.1 L (3.5-5.0) g/dL 02/20/22 02/20/22 Range/Units 04:12 06:04 RBC (3.80-5.40) m/uL Hgb (11.4-16.0) gm/dL Hct (34.0-46.0) % RDW (11.5-15.5) % Lymphocytes # (1.0-4.8) k/uL ABG O2 Saturation (94-97) % Sodium (137-145) mmol/L Chloride (98-107) mmol/L Carbon Dioxide (22-30) mmol/L BUN (7-17) mg/dL Creatinine (0.52-1.04) mg/dL Glucose (74-99) mg/dL POC Glucose (mg/dL) 123 H 134 H (70-110) mg/dL Calcium (8.4-10.2) mg/dL AST (14-36) U/L Total Protein (6.3-8.2) g/dL Albumin (3.5-5.0) g/dL Microbiology - Last 24 Hours (Table) 02/18/22 12:01 Gram Stain - Preliminary Heart Valve Tissue Culture - Preliminary Assessment and Plan Plan: Assessment: #1. Aortic valve endocarditis with severe aortic valve regurgitation, possible root abscess, status post aortic valve replacement with a On-X mechanical aortic valve, patch closure of aortotomy with involving pericardium, debridement of a nuclear infected tissue in the aortic outflow track, and ligation of the left atrial appendage, postoperative day #2 #2. Severe aortic regurgitation #3. Routine postoperative mechanical ventilator management, patient was successfully weaned and extubated on postoperative day #1 on 08/22/2021 #4. Acute blood loss anemia, and expected outcome of aortic valve replacement surgery, status post transfusion with a total of 12 units of packed red blood cells, 2 units of fresh frozen plasma, 3 units of platelets, 1 unit of pulled cryoprecipitate #5. Acute pulmonary edema, improving, patient is on diuretics E Plan: Continue encouraging deep breathing and coughing Patient has been started diuretics by CT surgery team Multiple chest tubes remain in place No air leak Still draining some moderate amount of serosanguineous output Hemodynamically she is stable Maintain pain control Transfuse as needed, per CT surgery recommendations GI and DVT prophylaxis Continues on antibiotics Increase activity as tolerated We'll continue to follow I have personally seen and examined the patient, performed the documentation and the assessment and plan as written. Number of minutes spent on the visit: [15] Time with Patient: Greater than 30
--- NOTE | 2022-02-20 11:11 | P.PN ---
Progress Note - Text Progress Note Date: 02/20/22 This is a 36-year-old female with aortic valve endocarditis with bacteremia. She is status post aortic valve replacement. Surgical service was following in regards to patient's history of colitis. Patient had a colonoscopy during this admission with no evidence of colitis. Discussed case with Kiley, medicine [employer]. No new general surgical issues. At this time surgical service will sign off. Please call with any questions or concerns.
[2022-02-20 11:40] LABS: Glucose,Whole Blood 123 mg/dL (70-110)
--- NOTE | 2022-02-20 13:08 | P.PN ---
Subjective Progress Note Date: 02/20/22 Principal diagnosis: Aortic valve endocarditis with severe aortic valve regurgitation, possible root abscess, Serratia marcescens bacteremia, sepsis, acute hypoxic respiratory fail ure requiring mechanical ventilation, altered mental status, acute anemia, acute kidney injury with a peak creatinine of 1.31. Past medical history significant for bacteremia with blood cultures from [facility] positive for Serratia marcescens, recent history of colitis and splenomegaly likely splenic infarct, anxiety, PTSD with history of self mutilation. POD #2 Aortic valve replacement with 23 mm On-X mechanical aortic valve, patch closure of aortotomy with involving pericardium, debridement of some annular infected tissue in aortic outflow tract, ligation of left atrial appendage with 35 mm AtriCure clip. Postoperative acute blood loss anemia and thrombocytopenia, expected given her preop anemia, hemodilution and cardiopulmonary bypass. The patient was seen and examined in follow-up today 02/20/2022 at her bedside in the intensive care. She was successfully extubated yesterday at 2:05 PM, she is currently on 2 L nasal cannula with oxygen saturations 98% and achieving 500 mL on her incentive spirometry. She remained hemodynamically stable and is currently on no inotropic pressor support. Bedside telemetry showing normal sinus rhythm heart rate 89 BPM. Right IJ cordis and Waves-Rajni catheter remains in place with current hemodynamic showing a cardiac output 6.5, cardiac index 3.5, PA pressures 23/8 and a CVP of 1 mmHg. A right pleural chest tube was placed yesterday for a right hemothorax. Mediastinal, left pleural, right pleural and right pleural Dov chest tubes remained to low continuous wall suction -20 cm H2O. No air leak is present. Draining thin serosanguineous drainage. Atrial and ventricular epicardial pacemaker wires remained in place and connected to a backup bedside pacemaker generator on VVI 50 BPM. The patient denies any complaints of shortness of breath at this time although is complaining of some surgical type pain to her chest tube insertion sites rating her pain 10 out of 10 on the pain scale. Laboratory results this morning Pérez WBC count of 8.4, hemoglobin 8.3, hematocrit 24.8, platelets 152, sodium 135, potassium 4.5, chloride 109, CO2 18, BUN 30, creatinine 1.11, calcium 7.7, ionized calcium 4.7, AST 38 and ALT 13. Preliminary Gram stain cultures on her heart valve showed no organism seen after 24 hours and her anaerobic pulmonary results remain pending. She remains on cefepime 2 g IV piggyback every 8 hours for antibiotic coverage managed by infectious disease. The patient's father had a conversation with Dr. Beck yesterday with concerns of IV drug abuse with his daughter. Objective - Vital Signs Vital signs: Vital Signs Temp 98.2 F 02/20/22 09:00 Pulse 87 02/20/22 09:00 Resp 43 H 02/20/22 09:00 BP 122/71 02/20/22 09:00 Pulse Ox 96 02/20/22 09:14 FiO2 35 02/19/22 14:00 Intake & Output 02/19/22 02/20/22 02/20/22 18:59 06:59 18:59 Intake Total 3175.418 6317.477 487 Output Total 1485 1070 175 Balance 63.025 567.477 312 Weight 76.8 kg Intake: IV 764 908 247 CO/CI 120 100 Cefepime 2 gm In Sodium 100 100 Chloride 0.9% 100 ml @ 25 mls/hr IVPB Q8HR [facility] Rx# :[id number] Lactated Ringers 1,000 ml 545 600 120 @ 20 mls/hr IV .Q24H [facility] Rx#:[id number] NS Pressure Tubing 99 108 27 Intake, IV Titration 305.025 9.477 Amount Dexmedetomidine/0.9% NaCl 127.236 (Pmx) 400 mcg In Empty Bag 1 bag @ 0.2 MCG/KG/HR 3.68 mls/hr IV .Q24H [facility] Rx#:[id number] Insulin Regular 100 unit 1.591 9.477 In Sodium Chloride 0.9% 100 ml @ Per Protocol IV .Q0M [facility] Rx#:[id number] propofoL 1,000 mg In 176.198 Empty Bag 1 bag @ Titrate IV .Q0M [facility] Rx#: [id number] Oral 200 720 240 Blood Product 279 Rc Pheresis As-3 Unit 279 [id number] Output: Chest Tube Drainage 1010 590 80 Chest Tube Left Pleural/ 200 200 30 Mediastinal Chest Tube Mediastinal 20 10 0 Chest Tube Right 690 290 20 Chest Tube Right Right 100 90 30 Pleural/Mediastinal Urine 475 480 95 Other: Voiding Method Indwelling Catheter Indwelling Catheter ABP, PAP, CO, CI - Last Documented Arterial Blood Pressure 128/67 Pulmonary Artery Pressure 26/8 Cardiac Output 6.5 Cardiac Index 3.5 - Exam CONSTITUTIONAL: Sitting up to the bedside chair in the intensive care unit, complaining of surgical type pain 10 out of 10 on the pain scale, cooperative, no apparent acute distress. HEENT: Neck is supple, no JVD, no lymphadenopathy. Right IJ Cordis and Waves- Rajni catheter in place and functioning. RESPIRATORY: Lungs sounds essentially clear throughout, diminished to his bilateral bases. Respirations are symmetrical and nonlabored. Currently oxygen saturations 98% on 2 L nasal cannula. Weak cough. Achieving 500 mL on her incentive spirometry with much encouragement. CARDIOVASCULAR: Regular rhythm and rate. S1 and S2 present with mechanical valvular click, negative for S3, gallop or murmur. Sternum is stable. Palpable peripheral pulses bilaterally, no edema to her bilateral lower extremities. No calf pain or tenderness noted. Heart hugger in place and she is demonstrating appropriate use . Knee-high DAVI hose and sequential compression devices in place to her bilateral lower extremities. GASTROINTESTINAL: Abdomen soft, nontender, nondistended.Active bowel sounds present 4 quadrants. Tolerating diet. No guarding or rigidity. Passing flatus. GENITOURINARY: Jefferson present draining clear, yellow urine. Urine output 320 mL in the last 8 hours. INTEGUMENTARY: Skin is warm and dry with no evidence of clubbing or cyanosis. Midline sternal incision clean dry and well approximated, covered with dry intact dressing. NEUROLOGIC: Cranial nerves II through XII intact. No focal deficits. MUSKULOSKELETAL: Able to move all extremities, strength equal bilaterally. PSYCHIATRIC: Alert and oriented to person place and time, appropriate affect, intact judgment and insight. INVASIVE LINES AND TUBES: Mediastinal/left/right pleural chest tubes and right Dov tube present and connected to low continuous wall suction, no air leaks present. Mediastinal tube with 10 mL of thin serosanguineous drainage [id number] in the last 24 hours. Left pleural chest tube with 140 mL of thin serosanguineous drainage overnight, 440 output in the last 24 hours. Right pleural Dov chest tube with 60 mL of thin serosanguineous drainage overnight, 120 ml output in the last 24 hours . Right pleural chest tube with 200 mL of thin serosanguineous drainage overnight, 970 ml output in the last 24 hours Atrial and ventricular epicardial pacemaker wires present, connected to generator, VVI backup rate 50 bpm. Right internal jugular Waves/Cordis, right radial arterial line present. Last CO 6.5, CI 3.5, PA 23/8 and CVP 1 mmHg. - Allied health notes Allied health notes reviewed: nursing - Labs CBC & Chem 7: 02/20/22 04:10 02/20/22 04:10 Labs: Abnormal Lab Results - Last 24 Hours (Table) 02/19/22 02/19/22 02/19/22 Range/Units 10:15 11:22 13:16 RBC (3.80-5.40) m/uL Hgb (11.4-16.0) gm/dL Hct (34.0-46.0) % RDW (11.5-15.5) % Lymphocytes # (1.0-4.8) k/uL ABG O2 Saturation (94-97) % Sodium (137-145) mmol/L Chloride (98-107) mmol/L Carbon Dioxide (22-30) mmol/L BUN (7-17) mg/dL Creatinine (0.52-1.04) mg/dL Glucose (74-99) mg/dL POC Glucose (mg/dL) 118 H 116 H 112 H (70-110) mg/dL Calcium (8.4-10.2) mg/dL AST (14-36) U/L Total Protein (6.3-8.2) g/dL Albumin (3.5-5.0) g/dL 02/19/22 02/19/22 02/19/22 Range/Units 13:56 15:16 16:47 RBC (3.80-5.40) m/uL Hgb (11.4-16.0) gm/dL Hct (34.0-46.0) % RDW (11.5-15.5) % Lymphocytes # (1.0-4.8) k/uL ABG O2 Saturation 97.1 H (94-97) % Sodium (137-145) mmol/L Chloride (98-107) mmol/L Carbon Dioxide (22-30) mmol/L BUN (7-17) mg/dL Creatinine (0.52-1.04) mg/dL Glucose (74-99) mg/dL POC Glucose (mg/dL) 124 H 129 H (70-110) mg/dL Calcium (8.4-10.2) mg/dL AST (14-36) U/L Total Protein (6.3-8.2) g/dL Albumin (3.5-5.0) g/dL 02/19/22 02/19/22 02/19/22 Range/Units 18:35 20:17 21:57 RBC (3.80-5.40) m/uL Hgb (11.4-16.0) gm/dL Hct (34.0-46.0) % RDW (11.5-15.5) % Lymphocytes # (1.0-4.8) k/uL ABG O2 Saturation (94-97) % Sodium (137-145) mmol/L Chloride (98-107) mmol/L Carbon Dioxide (22-30) mmol/L BUN (7-17) mg/dL Creatinine (0.52-1.04) mg/dL Glucose (74-99) mg/dL POC Glucose (mg/dL) 125 H 125 H 126 H (70-110) mg/dL Calcium (8.4-10.2) mg/dL AST (14-36) U/L Total Protein (6.3-8.2) g/dL Albumin (3.5-5.0) g/dL 02/20/22 02/20/22 02/20/22 Range/Units 00:13 02:06 04:10 RBC 2.98 L (3.80-5.40) m/uL Hgb 8.3 L (11.4-16.0) gm/dL Hct 24.8 L (34.0-46.0) % RDW 18.8 H (11.5-15.5) % Lymphocytes # 0.5 L (1.0-4.8) k/uL ABG O2 Saturation (94-97) % Sodium (137-145) mmol/L Chloride (98-107) mmol/L Carbon Dioxide (22-30) mmol/L BUN (7-17) mg/dL Creatinine (0.52-1.04) mg/dL Glucose (74-99) mg/dL POC Glucose (mg/dL) 120 H 117 H (70-110) mg/dL Calcium (8.4-10.2) mg/dL AST (14-36) U/L Total Protein (6.3-8.2) g/dL Albumin (3.5-5.0) g/dL 02/20/22 02/20/22 02/20/22 Range/Units 04:10 04:12 06:04 RBC (3.80-5.40) m/uL Hgb (11.4-16.0) gm/dL Hct (34.0-46.0) % RDW (11.5-15.5) % Lymphocytes # (1.0-4.8) k/uL ABG O2 Saturation (94-97) % Sodium 135 L (137-145) mmol/L Chloride 109 H (98-107) mmol/L Carbon Dioxide 18 L (22-30) mmol/L BUN 30 H (7-17) mg/dL Creatinine 1.11 H (0.52-1.04) mg/dL Glucose 116 H (74-99) mg/dL POC Glucose (mg/dL) 123 H 134 H (70-110) mg/dL Calcium 7.7 L (8.4-10.2) mg/dL AST 38 H (14-36) U/L Total Protein 4.7 L (6.3-8.2) g/dL Albumin 2.1 L (3.5-5.0) g/dL Microbiology - Last 24 Hours (Table) 02/18/22 12:01 Gram Stain - Preliminary Heart Valve Tissue Culture - Preliminary - Imaging and Cardiology Chest x-ray: report reviewed, image reviewed Assessment and Plan Assessment: 1. 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 Serratia bacteremia, sepsis on cefepime 2 g IV piggyback every 8 hours managed by infectious disease 3. Acute hypoxic respiratory failure requiring mechanical ventilation 4. Altered mental status this admission, resolved 5. Acute on chronic anemia, status post blood transfusion hemoglobin 8.3 today 02/20/2022 6. Acute kidney injury, BUN 30 and creatinine 1.11 today 7. Recent history of colitis and splenomegaly likely splenic infarct, status post colonoscopy which showed normal appearing colon from the rectum to the cecum with no evidence of colitis or colorectal aplasia 8. History of anxiety 9. PTSD with history of self mutilation 10. Chronic dental abscess tooth #15, status post surgical extraction of tooth 11. Postoperative acute blood loss anemia, an expected outcome given her preoperative anemia, hemodilution and cardiopulmonary bypass 12. Suspected IV drug abuse per patient's father Plan: 1. Continue to maximize medical therapy with aspirin, statin, and beta bryan. Will increase metoprolol tartrate 25 mg by mouth twice a day. 2. We will remove her atrial and ventricular epicardial pacemaker wires today with bed rest for 1 hour post pacemaker wire removal.. 3. Wean oxygen as tolerated. Encourage incentive spirometry use 10 times every hour while awake. Bronchodilators per pulmonology/critical care medicine. 4. Once extubated increase activity, ambulate as tolerated. PT/OT/cardiac rehab following. 5. Will monitor daily labs and chest x-rays. Electrolyte replacement per protocol. 6. GI and DVT prophylaxis. 7. Pain control with current medication regimen. Avoid nephrotoxic agents. Discontinue Mendon, and oxycodone 5 mg by mouth every 4 hours for pain 1-5 on the pain scale and oxycodone 10 mg by mouth every 4 hours for pain 6-10 on the pain scale. Add Ofirmev 1000 mg IV every 6 hours for additional pain control. 8. Insulin management per primary care service. Patient is a nondiabetic with a preoperative hemoglobin A1c 5.9%. 9. Remove Waves Cari catheter and keep right IJ Cordis to continue CVP monitoring. 10. Continue right and left pleural chest tubes for another 24 hours. We will remove her mediastinal and right Dov pleural chest tubes today. 11. Continue Jefferson catheter for another 24 hours for strict accurate intake and output. Daily weights 12. Continue right radial arterial line for another 24 hours. 13. Lasix 20 mg IV every 8 hours. Potassium chloride 10 mEq by mouth twice a day until Lasix is discontinued. 14. Consult psychiatry for possible IV drug use according to the patient's father. 15. Patient will need to be started on Coumadin after all lines and tubes have been discontinued, will stop Plavix and decrease aspirin to 81 mg by mouth daily once we start Coumadin. Goal INR for first 3 months 2.5-2.8, after 3 months goal INR 1.5-2. Daily PT and INR have been ordered. 16. More recommendations to follow based on patient's clinical course. Time with Patient: Greater than 30
[2022-02-20] MEDS ORDERED: busPIRone HCl 5 MG TAB PO PRN (14:08)
[2022-02-20] MEDS ORDERED: busPIRone HCl 5 MG TAB PO STA (14:08)
[2022-02-20] MEDS ORDERED: MELATONIN 5 MG TABLET PO PRN (14:20)
--- NOTE | 2022-02-20 14:20 | P.CN ---
Psychiatric Consult - . Consult date: 02/20/22 Consult:: 02/20/22 14:08 IDENTIFYING DATA: This patient is a 36-year-old female, currently lives alone, in a house, single has no kids. 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 Patient was noted to have aortic valve endocarditis and required aortic valve replacement 2 days ago. Patient's daughter states that patient has been mainly anxious and apparently that her father found a needle in her arm at home. Patient was seen today sitting in the chair beside her bed and appeared to be fairly anxious however was turning to cooperate. She spoke in a hesitant tone. She claims that she collapsed at home and was fairly vague about what occurred. She claims that she can't remember much but states that she had a "fairly hard" and spoke about having an infection. She claims that the infection was from her GI tract. She claims that she was visiting family in [place] and she currently lives in [place] She states that she does have a history of depression and anxiety and PTSD. 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 She states that she does not feel depressed at this time however is complaining of anxiety. She was minimizing her symptoms and need for help. She states that Ativan had helped her in the past. [employer] Machine Tender spoke with patient about the different causes of endocarditis and if she is using any IV drugs and patient adamantly denied this. At this time patient denies any suicidal or homical ideations, intent or plan. Patient denies any auditory, visual hallucinations and denies any paranoia or delusions. Patients admits to using no recreational drugs or cigarettes. PAST PSYCHIATRIC HISTORY: Patient has a a history of depression and anxiety and PTSD. 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 She claims that she was admitted to a psychiatric unit in [facility] during veterinary school. Patient denies any current psychiatric outpatient follow-up. Patient denies any history of suicide attempts in the past however does state that she has a history of cutting on her arms and legs.. PAST MEDICAL HISTORY: As per medicine H&P. ALLERGIES: as per EMR. CHEMICAL DEPENDENCY HISTORY: as per HPI. FAMILY PSYCHIATRIC/SUBSTANCE USE HISTORY: She states that her mother has bipolar disorder SOCIAL HISTORY: Patient was born and raised in [place] and then moved to [facility]. 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 She does not have any kids she is single. She lives alone in a house.. MENTAL STATUS EXAM: General Appearance: Patient appears to be sitting in a chair, anxious and distressed, attempts to be cooperative. Patient appears to have fair hygiene and grooming wearing hospital gown with fair eye contact. Behavior: She appears to be anxious and attempting to cooperate. Speech: Patient's speech is fluent and nonpressured. Shaky, Mood/Affect: Patient reports their mood is "anxious", affect is congruent Suicidality/Homicidality: Patient denies having any suicidal or homicidal ideation intent or plan. Perceptions: Patient denies any visual hallucinations and denies any auditory hallucinations Though content/process: There is no evidence of any delusional thought content and thought process is linear and goal-directed. Vague at times. Memory and concentration: AOX3, grossly intact for the purposes of this session. Can spell "WORLD" backwards Judgment and insight: poor IMPRESSIONS: Anxiety disorder unspecified, rule out PTSD History of depressive disorder PLAN: -At this time patient DOES NOT meet criteria for inpatient psychiatric admission. -Would recommend the following medication changes/additions: Lexapro 5 mg daily for mood/anxiety, BuSpar 5 mg 3 times a day when necessary for anxiety, melatonin 5 mg daily at bedtime when necessary for sleep. -reclamation worker to provide patient with outpatient mental health/psychiatry resources for appropriate follow up upon discharge -[employer] Tender spoke with patient about substance abuse and the harmful effects on medical and mental health, patient verbally understood and agreed. -Nurse claims that patient will likely be going to rehab upon discharge. -Communicated plan to patient's nurse -Will continue to follow along as needed -Please contact with any questions. 02/20/22 14:12
[2022-02-20] MEDS: ESCITALOPRAM 5 MG TAB PO SCH (14:22)
[2022-02-20] MEDS: INSULIN ASPART (NovoLOG) 100 UNIT/ML VIAL SQ SCH ×3 (16:13→20:59)
[2022-02-20 16:34] LABS: Glucose,Whole Blood 120 mg/dL (70-110)
[2022-02-20 16:56] LABS: Calcium 7.7 mg/dL (8.4-10.2); Potassium 4.8 mmol/L (3.5-5.1)
[2022-02-20 17:43] LABS: ABG Base Excess -6.3 mmol/L; ABG HCO3 19 mmol/L (21-25); ABG Oxygen Saturation 98.2 % (94-97); ABG PCO2 33 mmHg (35-45); ABG PH 7.37 (7.35-7.45); ABG PO2 98 mmHg (83-108); ABG TCO2 20 mmol/L (19-24); Allen Test Performed? Yes
[2022-02-20 20:42] LABS: Glucose,Whole Blood 138 mg/dL (70-110)
[2022-02-20] MEDS: SENNOSIDES-DOCUSATE SODIUM 1 EACH TAB PO SCH (20:45)
[2022-02-20 21:04] LABS: ABG Base Excess -5.5 mmol/L; ABG HCO3 20 mmol/L (21-25); ABG Oxygen Saturation 98.2 % (94-97); ABG PCO2 33 mmHg (35-45); ABG PH 7.38 (7.35-7.45); ABG PO2 103 mmHg (83-108); ABG TCO2 21 mmol/L (19-24); Allen Test Performed? Yes
[2022-02-20] MEDS ORDERED: oxyCODONE-APAP 5-325MG 1 EACH TAB PO PRN (23:32)
[2022-02-20] MEDS: oxyCODONE-APAP 5-325MG 1 EACH TAB PO PRN (23:44)
--- NOTE | 2022-02-20 23:50 | P.PN ---
Subjective This is a pleasant 56 years old female with past medical history of anxiety, PTSD, presents with altered mental status. She is a patient of Dr. Vizcarra. Patient was admitted in the ICU from the emergency room, patient could not provide information which were obtained from medical records and staff. per ems pt was recently at [place] for a blood infection. pt's last known well was last night at 10:30pm. pt found by family this evening altered. Patient was intubated in the emergency room Patient had a fever of 103 on admission, she is tachypneic 29-31, blood pressure 107/53 Labs reviewed on admission, WBC 8.7, low hemoglobin 6.9, low platelet 120, with thrombocytopenia which is mild ESR is elevated at 90, CRP elevated 8.9 PH normal 7.4, pCO2 normal at 37 INR 1.2 Sodium 132, potassium 3.2, creatinine 1.0. Liver enzymes are normal as well as bilirubin. Troponin is elevated at 0.37. ProBNP is elevated to 38,000 Urinalysis showing 3+ protein, large blood, RBC 127, WBC 27. Urine test is negative. Urine drug screen is positive for opioids EKG showing sinus tachycardia at [address]-T changes Chest x-ray: Acute pulmonary edema Computed tomography scan of the head and neck: Normal cervical spine with no fracture and normal CT of the brain by radiologist In the emergency room she received IV fluids with normal saline, vancomycin and ceftriaxone and ibuprofen and IV Tylenol, Dilaudid and lorazepam and succi nylcholine 02/10/2022 Patient is a pleasant 36 years old female was admitted with AMS and acute pul monary edema, she got intubated on admission and entered closely in the ICU with pulmonary/critical care team. Echocardiogram showed evidence of regurgitation on the aortic valve, which is confirmatory with WADE showed severe aortic regurgitation. Patient's risk factors with subacute bacterial endocarditis with sepsis secondary with Serratia marcescens and blood culture, a patient currently kept o n antibiotics with cefepime. IV vancomycin discontinued. She is also gentle hydration Today several consultants were on the case including pulmonary, cardiology, cardiothoracic surgery infectious disease with recommendation to transfer patient to tertiary care center I discussed the case with MICU fellow at [facility] in [place] Dr. Valladares and I discussed the case with her and she currently accepted the patient depending bed availability. 02/11/2022 Patient remains critically ill in the intensive care unit, she still intubated and on mechanical ventilation. Pulmonary/critical care to follow closely and help with vent management. She remains on broad-spectrum antibiotics of cefepime for positive blood culture with Serratia for her endocarditis I discussed the case with her report MICU team yesterday and they Accepted the patient, pending bed availability. Patient is followed closely by several consultants including cardiology, cardiothoracic and surgery teams as well as infectious disease. And WADE are noted. 02/12/2022 Patient got extubated and currently her respiratory status is stable and at baseline or close to baseline she is not tachypneic or hypoxic. This morning she was still tired and very sleepy and she could not provide information however she started waking up throughout the day and she is alert awake and oriented. Repeat chest x-ray showing clearance of pulmonary edema but there is development of right lower lobe infiltrate. Rest of vitals and labs are stable. She has low-grade temperature of 99.8 today. She is currently on cefepime. I discussed the case again with [facility] at her report, they informed me her transfer was canceled because [facility] has reached its full capacity. On reviewing this with the staff patient may not needed to be transferred and her aortic valve regurgitation be managed in this facility. However we will follow up with pulmonary/critical care team and surgery teams. 02/13/2022 Patient today is fully awake and oriented, she looks a pleasant and calm, she denies any specific symptoms to me. She looks mildly tired and lethargic. However her mentation is normal. She denies chest pain or dyspnea. No abdominal pain or vomiting or diarrhea. No urinary complaints. No headache or weakness or numbness. No dizziness. She is hemodynamically stable. Labs look stable. She's continued on IV cefepime. Repeat blood culture is negative. Cardiothoracic surgery team recommended aortic valve repair during this admission and colonoscopy to be done prior to the procedure however a decline in the procedure We will follow up with the consult recommendation 02/14/2022 Patient today awake and alert, she did not complain of from any specific complaint to me, she has insight into [place] and she has several questions ANSWERED to her satisfaction, most of them were around colonoscopy and I'll exp pamela to her extensively. It looks like later on patient evaluated by GI team for clearance prior to expected cardiothoracic surgery to replace the aortic valve. And per GI team patient is going for colonoscopy tomorrow morning. Patient denies chest pain or dyspnea. No abdominal pain with she still have some diarrhea. Other than that she remains on cefepime as per ID team. vitals are reviewed s table. 02/15/2022 Patient remains in the ICU, fully awake and oriented, calm and not in distress. Vitals and labs look stable. Reviewed in details Abdomen discussion with the patient looks like she is agreeable to colonoscopy. Also she told me about the need to take her to without and that she is thinking about it and that she is going to discussed with the surgeon. Cardiothoracic surgery team on the case and the planned for aortic valve replacement given the damage caused by endocarditis. Repeat blood culture are negative so far. The patient remains on IV cefepime per ID team Colonoscopy results show normal colon per report 02/16/2022 Patient removed to the select unit, currently she is awake alert looks comfortable and pleasant and she is at room air, denies any specific symptoms, no chest pain, no abdominal pain, no dyspnea. No headache or weakness or numbness. And vitals are stable. She was happy that her tooth was extracted and she was put to sleep so she could not feel it. Patient kept now on IV antibiotic with cefepime and the recommendation of ID team, she will need a prolonged course of IV antibiotics. Cardiothoracic surgery team are planning for aortic valve replacement, with further workup is in progress I'm resume the care of the patient today 02/20/2022 Patient is status post aortic valve replacement with mechanical aortic valve on 02/18. Today postop day #2. He is been marked closely in the ICU. She is awake and alert, she is complaining from some discomfort at the surgery site. Blood pressure is borderline and she is mildly tachypneic, tachycardic. Hemoglobin 8.3, creatinine 1.19. She is currently Kept on cefepime also IV Lasix added by cardiothoracic surgery team on the dose of 20 mg twice a day. Objective - Vital Signs Vital signs: Vital Signs Temp 98.2 F 02/20/22 09:00 Pulse 80 02/20/22 11:00 Resp 34 H 02/20/22 11:00 BP 122/71 02/20/22 09:00 Pulse Ox 98 08/22/22 11:00 FiO2 35 02/19/22 14:00 Intake & Output 02/19/22 02/20/22 02/20/22 18:59 06:59 18:59 Intake Total 4284.907 8988.477 719 Output Total 1485 1070 335 Balance 63.025 567.477 384 Weight 76.8 kg Intake: IV 764 908 359 ACETAMINOPHEN IV (For NPO 100 ) 1,000 mg In Empty Bag 1 bag @ 400 mls/hr IVPB Q6H [facility] Rx#:[id number] CO/CI 120 100 Cefepime 2 gm In Sodium 100 100 Chloride 0.9% 100 ml @ 25 mls/hr IVPB Q8HR [facility] Rx# :[id number] Lactated Ringers 1,000 ml 545 600 120 @ 20 mls/hr IV .Q24H [facility] Rx#:[id number] NS Pressure Tubing 99 108 39 Intake, IV Titration 305.025 9.477 Amount Dexmedetomidine/0.9% NaCl 127.236 (Pmx) 400 mcg In Empty Bag 1 bag @ 0.2 MCG/KG/HR 3.68 mls/hr IV .Q24H [facility] Rx#:[id number] Insulin Regular 100 unit 1.591 9.477 In Sodium Chloride 0.9% 100 ml @ Per Protocol IV .Q0M [facility] Rx#:[id number] propofoL 1,000 mg In 176.198 Empty Bag 1 bag @ Titrate IV .Q0M B[facility]OP Rx#: [id number] Oral 200 720 360 Blood Product 279 Rc Pheresis As-3 Unit 279 [id number] Output: Chest Tube Drainage 1010 590 110 Chest Tube Left Pleural/ 200 200 40 Mediastinal Chest Tube Mediastinal 20 10 0 Chest Tube Right 690 290 20 Chest Tube Right Right 100 90 50 Pleural/Mediastinal Urine 475 480 225 Other: Voiding Method Indwelling Catheter Indwelling Catheter Indwelling Catheter ABP, PAP, CO, CI - Last Documented Arterial Blood Pressure 118/66 Pulmonary Artery Pressure 26/8 Cardiac Output 6.5 Cardiac Index 3.5 - Exam -GENERAL: The patient is awake and alert but tired HEENT: Pupils are round and equally reacting to light. EOMI. No scleral icterus. No conjunctival pallor. Normocephalic, atraumatic. No pharyngeal erythema. No thyromegaly. CARDIOVASCULAR: S1 and S2 present. no murmurs, rubs, or gallops. -PULMONARY: Chest is clear to auscultation, no wheezing or crackles. Surgical wound, and a dressing. Rest of exam was deferred surgery team ABDOMEN: Soft, nontender, nondistended, normoactive bowel sounds. No palpable organomegaly. MUSCULOSKELETAL: No joint swelling or deformity. EXTREMITIES: No cyanosis, clubbing, or pedal edema. NEUROLOGICAL: Gross neurological examination did not reveal any focal deficits. SKIN: No rashes. no petechiae. - Labs CBC & Chem 7: 02/20/22 04:10 02/20/22 16:37 Labs: Abnormal Lab Results - Last 24 Hours (Table) 02/19/22 02/19/22 02/19/22 Range/Units 13:16 13:56 15:16 RBC (3.80-5.40) m/uL Hgb (11.4-16.0) gm/dL Hct (34.0-46.0) % RDW (11.5-15.5) % Lymphocytes # (1.0-4.8) k/uL ABG O2 Saturation 97.1 H (94-97) % Sodium (137-145) mmol/L Chloride (98-107) mmol/L Carbon Dioxide (22-30) mmol/L BUN (7-17) mg/dL Creatinine (0.52-1.04) mg/dL Glucose (74-99) mg/dL POC Glucose (mg/dL) 112 H 124 H (70-110) mg/dL Calcium (8.4-10.2) mg/dL AST (14-36) U/L Total Protein (6.3-8.2) g/dL Albumin (3.5-5.0) g/dL 02/19/22 02/19/22 02/19/22 Range/Units 16:47 18:35 20:17 RBC (3.80-5.40) m/uL Hgb (11.4-16.0) gm/dL Hct (34.0-46.0) % RDW (11.5-15.5) % Lymphocytes # (1.0-4.8) k/uL ABG O2 Saturation (94-97) % Sodium (137-145) mmol/L Chloride (98-107) mmol/L Carbon Dioxide (22-30) mmol/L BUN (7-17) mg/dL Creatinine (0.52-1.04) mg/dL Glucose (74-99) mg/dL POC Glucose (mg/dL) 129 H 125 H 125 H (70-110) mg/dL Calcium (8.4-10.2) mg/dL AST (14-36) U/L Total Protein (6.3-8.2) g/dL Albumin (3.5-5.0) g/dL 02/19/22 02/20/22 02/20/22 Range/Units 21:57 00:13 02:06 RBC (3.80-5.40) m/uL Hgb (11.4-16.0) gm/dL Hct (34.0-46.0) % RDW (11.5-15.5) % Lymphocytes # (1.0-4.8) k/uL ABG O2 Saturation (94-97) % Sodium (137-145) mmol/L Chloride (98-107) mmol/L Carbon Dioxide (22-30) mmol/L BUN (7-17) mg/dL Creatinine (0.52-1.04) mg/dL Glucose (74-99) mg/dL POC Glucose (mg/dL) 126 H 120 H 117 H (70-110) mg/dL Calcium (8.4-10.2) mg/dL AST (14-36) U/L Total Protein (6.3-8.2) g/dL Albumin (3.5-5.0) g/dL 02/20/22 02/20/22 02/20/22 Range/Units 04:10 04:10 04:12 RBC 2.98 L (3.80-5.40) m/uL Hgb 8.3 L (11.4-16.0) gm/dL Hct 24.8 L (34.0-46.0) % RDW 18.8 H (11.5-15.5) % Lymphocytes # 0.5 L (1.0-4.8) k/uL ABG O2 Saturation (94-97) % Sodium 135 L (137-145) mmol/L Chloride 109 H (98-107) mmol/L Carbon Dioxide 18 L (22-30) mmol/L BUN 30 H (7-17) mg/dL Creatinine 1.11 H (0.52-1.04) mg/dL Glucose 116 H (74-99) mg/dL POC Glucose (mg/dL) 123 H (70-110) mg/dL Calcium 7.7 L (8.4-10.2) mg/dL AST 38 H (14-36) U/L Total Protein 4.7 L (6.3-8.2) g/dL Albumin 2.1 L (3.5-5.0) g/dL 02/20/22 Range/Units 06:04 RBC (3.80-5.40) m/uL Hgb (11.4-16.0) gm/dL Hct (34.0-46.0) % RDW (11.5-15.5) % Lymphocytes # (1.0-4.8) k/uL ABG O2 Saturation (94-97) % Sodium (137-145) mmol/L Chloride (98-107) mmol/L Carbon Dioxide (22-30) mmol/L BUN (7-17) mg/dL Creatinine (0.52-1.04) mg/dL Glucose (74-99) mg/dL POC Glucose (mg/dL) 134 H (70-110) mg/dL Calcium (8.4-10.2) mg/dL AST (14-36) U/L Total Protein (6.3-8.2) g/dL Albumin (3.5-5.0) g/dL Microbiology - Last 24 Hours (Table) 02/18/22 12:01 Anaerobic Culture - Preliminary Heart Valve 02/18/22 12:01 Gram Stain - Preliminary Heart Valve Tissue Culture - Preliminary Assessment and Plan Assessment: Subacute bacterial endocarditis Severe aortic regurgitation secondary to above, status post aortic valve replacement with mechanical valve on 02/18 Sepsis with fever and tachypnea, resolved Acute hypoxic respiratory failure requiring intubation and mechanical ventilation, she got extubated and currently on nasal cannula Metabolic encephalopathy Acute pulmonary edema, could be acute CHF versus RDS Severe anemia, microcytic hyperchromic requiring blood transfusion 4 Elevated troponin Plan: This is a pleasant 56 years old female who presents with AMS, on mechanical ventilation, anemia Continue with antibiotics as per ID team, currently on cefepime Keep follow-up and repeat blood culture, negative so far Cardiothoracic surgery team of the case, patient is a status post aortic valve replacement Several consultants on the case including infectious disease, pulmonary/critical care, cardiology, cardiothoracic surgery labs and medication were reviewed.. Continue same treatment. Continue with symptomatic treatment. Resume home medication. Monitor lytes and vitals. DVT and GI prophylaxis. Further recommendations as per clinical course of the patient DVT prophylaxis: asparin GI Prophylaxis: Ppi Prognosis is guarded
[2022-02-21] MEDS: ACETAMINOPHEN IV (For NPO) 1,000 MG in EMPTY BAG 1 BAG IVPB SCH (03:20)
[2022-02-21] MEDS: LACTATED RINGERS 1,000 ML IV SCH (03:38)
[2022-02-21 04:02] LABS: Anisocytosis Slight; Basophils % (A) 0 %; Eosinophils # (A) 0.1 k/uL (0-0.7); Eosinophils % (A) 1 %; HGB 8.3 gm/dL (11.4-16.0); Hypochromasia Moderate; Lymphocytes # (A) 0.5 k/uL (1.0-4.8); Lymphocytes % (A) 8 %; MCH 26.4 pg (25.0-35.0); MCHC 31.9 g/dL (31.0-37.0); MCV 82.8 fL (80.0-100.0); Mean Platelet Volume 8.8; Microcytosis Slight; Monocytes # (A) 0.3 k/uL (0-1.0); Monocytes % (A) 5 %; Neutrophils # (A) 5.8 k/uL (1.3-7.7); Neutrophils % (A) 85 %; Platelet Count 173 k/uL (150-450); Poikilocytosis Slight; RBC 3.14 m/uL (3.80-5.40); RDW 18.7 % (11.5-15.5); WBC 6.8 k/uL (3.8-10.6)
[2022-02-21 04:18] LABS: Albumin 2.3 g/dL (3.5-5.0); Calcium 7.6 mg/dL (8.4-10.2); Potassium 4.4 mmol/L (3.5-5.1); Total Bilirubin 0.6 mg/dL (0.2-1.3); Total Protein 5.2 g/dL (6.3-8.2)
[2022-02-21 04:33] LABS: INR 1.1 (<1.2); Prothrombin Time 11.3 sec (9.0-12.0)
[2022-02-21] MEDS: oxyCODONE-APAP 5-325MG 1 EACH TAB PO PRN (05:38)
--- NOTE | 2022-02-21 05:54 | XR ---
EXAMINATION TYPE: XR chest 1V portable DATE OF EXAM: 02/21/2022 CLINICAL HISTORY: Difficulty breathing progress study. Postopen cardiac surgery. TECHNIQUE: Single AP portable semiupright view of the chest is obtained. COMPARISON: Chest x-ray from one day earlier and older studies. FINDINGS: Interval removal of right internal jugular [place]ajni catheter with Cordis sheath now prese nt. Overlying sternal wires redemonstrated. Interval removal of 2 mediastinal drainage catheters. Lef t atrial appendage clip redemonstrated. Suspected Cardiac septal closure device again seen. Stable bi lateral chest tubes with tiny right apical pneumothorax redemonstrated. Persistent right greater than left bilateral lower lung opacities. Persistent cardiomegaly with sligh tly more prominent central vascular congestion. Osseous structures are intact. IMPRESSION: Cardiomegaly with more prominent central vascular congestion. Persistent bilateral lower lung acute infiltrates and/or atelectasis redemonstrated without significant interval change. Persist ent bilateral chest tubes with stable tiny right apical pneumothorax in retrospect.
[2022-02-21 06:18] LABS: Glucose,Whole Blood 114 mg/dL (70-110)
[2022-02-21] MEDS: PANTOPRAZOLE 40 MG TABLET PO SCH (06:35)
--- NOTE | 2022-02-21 07:00 | P.PN ---
Subjective Progress Note Date: 02/21/22 Principal diagnosis: [place] valve endocarditis. On 02/20/2022 patient seen in follow-up in intensive care unit, she is postoperative day #2, status post aortic valve replacement, with the mechanical aortic valve, patch closure of the aortotomy with involving pericardium, and de bridement of some annular infected tissue as well as left atrial appendage ligation. Patient is awake and alert, she was successfully weaned and extubated from the mechanical ventilator yesterday on 02/19/2022. She is breathing comfortably, room air pulse ox is 94-96%, she is afebrile, hemodynamically she is stable, she is on lactated Ringer's at a rate of 20 ML per hour, and antibiotics with cefepime, no vasopressor support. Yesterday she had another right-sided chest tube placed by CT surgery team. Currently has [address], one mediastinal, 1 left pleural/mediastinal, 1 right pleural, and one right pleural mediastinal chest tubes, no air leak noted. Still draining serosanguineous output, with at least output from the mediastinal chest tube. Today's chest x-ray showing postsurgical changes and streaky atelectasis in the right mid and lower lung. Patient is only achieving 300 mL on the incentive spirometer, she is having significant postsurgical pain. She is receiving pain medications. Patient has been up out of bed in the chair, tolerated activity fairly well. Urinary catheter is in place, patient is producing urine in the order of 20-30 ML per hour. She has been started on diuretics by CT surgery. Today's labs have been reviewed, white blood cell count is 8.4, hemoglobin is 8.3, platelet count is 152, sodium is 135, potassium is 4.5, chloride is 109, C O2 is 18, BUN is 30 creatinine is 1.11. Progress note dated 02/21/2022. This is a 36-year-old female who is postoperative day #3, status post aortic valve replacement with a mechanical aortic valve, as well as left atrial appendage ligation. The patient is currently on room air. The patient is g etting lactated Ringer's at 20 mL an hour. She's had a uneventful night according to the nurses. Labs today include a white count 6.8, hemoglobin 8.3, hematocrit 26, and platelet count 273,000. Sodium 132, potassium 4.4, chlorides 105, CO2 19, anion gap 8, BUN 35, and creatinine 1.12. Albumin is 2.3. Previous blood cultures from February 09 were positive for Serratia marcescens. Chest x- ray shows some cardiomegaly, with mild vascular congestion. Objective - Vital Signs Vital signs: Vital Signs Temp 98 F 02/21/22 04:00 Pulse 84 02/21/22 06:15 Resp 33 H 02/21/22 06:15 BP 122/71 02/20/22 09:00 Pulse Ox 99 02/21/22 06:15 FiO2 35 02/19/22 14:00 Intake & Output 02/20/22 02/20/22 02/21/22 06:59 18:59 06:59 Intake Total 7936.416 7220 1004 Output Total 1070 775 940 Balance 567.477 270 64 Weight 76.8 kg 76.8 kg 77.9 kg Intake: IV 908 565 604 ACETAMINOPHEN IV (For NPO 200 200 ) 1,000 mg In Empty Bag 1 bag @ 400 mls/hr IVPB Q6H [facility] Rx#:[id number] CO/CI 100 Cefepime 2 gm In Sodium 100 100 100 Chloride 0.9% 100 ml @ 25 mls/hr IVPB Q8HR [facility] Rx# :[id number] Lactated Ringers 1,000 ml 600 190 220 @ 20 mls/hr IV .Q24H [facility] Rx#:[id number] NS Pressure Tubing 108 75 84 Intake, IV Titration 9.477 Amount Insulin Regular 100 unit 9.477 In Sodium Chloride 0.9% 100 ml @ Per Protocol IV .Q0M [facility] Rx#:[id number] Oral 720 480 400 Output: Chest Tube Drainage 590 150 90 Chest Tube Left Pleural/ 200 50 0 Mediastinal Chest Tube Mediastinal 10 0 Chest Tube Right 290 20 Chest Tube Right Right 90 80 90 Pleural/Mediastinal Urine 480 625 850 Other: Voiding Method Indwelling Catheter Indwelling Catheter Bedside Commode # Voids 1 ABP, PAP, CO, CI - Last Documented Arterial Blood Pressure 131/70 Pulmonary Artery Pressure 26/8 Cardiac Output 6.5 Cardiac Index 3.5 - Exam No acute distress, oriented 3. Currently on room air. HEENT examination is grossly unremarkable. Neck supple. Full range of motion. No adenopathy thyromegaly or neck vein distention. Cardiovascular examination reveals regular rhythm rate. S1-S2 normal. No S3 or S4. No discernible murmur noted. Heart rate 84 bpm. Lungs reveal mostly clear breath sounds. Minimal scattered rhonchi. No wheezes or crackles. Breath sounds are equal bilaterally. Room air saturation is 99%. Abdomen soft bowel sounds are heard. No masses or tenderness. Extremities are intact. No cyanosis clubbing or edema. Skin is without rash or lesion. Neurologic examination is brief but nonfocal. - Labs CBC & Chem 7: 02/21/22 03:32 02/21/22 03:32 Labs: Abnormal Lab Results - Last 24 Hours (Table) 02/17/22 02/17/22 02/20/22 Range/Units 06:59 06:59 11:39 RBC (3.80-5.40) m/uL Hgb (11.4-16.0) gm/dL Hct (34.0-46.0) % RDW (11.5-15.5) % Lymphocytes # (1.0-4.8) k/uL ABG pCO2 (35-45) mmHg ABG HCO3 (21-25) mmol/L ABG O2 Saturation (94-97) % Sodium (137-145) mmol/L Carbon Dioxide (22-30) mmol/L BUN (7-17) mg/dL Creatinine (0.52-1.04) mg/dL Glucose (74-99) mg/dL POC Glucose (mg/dL) 123 H (70-110) mg/dL Calcium (8.4-10.2) mg/dL Total Protein (6.3-8.2) g/dL Albumin (3.5-5.0) g/dL Vit D 1,25-Dihydroxy 11 L (20 - 79) pg/mL Crossmatch See Detail 02/20/22 02/20/22 02/20/22 Range/Units 16:32 16:37 17:36 RBC (3.80-5.40) m/uL Hgb (11.4-16.0) gm/dL Hct (34.0-46.0) % RDW (11.5-15.5) % Lymphocytes # (1.0-4.8) k/uL ABG pCO2 33 L (35-45) mmHg ABG HCO3 19 L (21-25) mmol/L ABG O2 Saturation 98.2 H (94-97) % Sodium 133 L (137-145) mmol/L Carbon Dioxide 16 L (22-30) mmol/L BUN 33 H (7-17) mg/dL Creatinine 1.19 H (0.52-1.04) mg/dL Glucose 119 H (74-99) mg/dL POC Glucose (mg/dL) 120 H (70-110) mg/dL Calcium 7.7 L (8.4-10.2) mg/dL Total Protein (6.3-8.2) g/dL Albumin (3.5-5.0) g/dL Vit D 1,25-Dihydroxy (20 - 79) pg/mL Crossmatch 02/20/22 02/20/22 02/21/22 Range/Units 20:40 20:58 03:32 RBC 3.14 L (3.80-5.40) m/uL Hgb 8.3 L (11.4-16.0) gm/dL Hct 26.0 L (34.0-46.0) % RDW 18.7 H (11.5-15.5) % Lymphocytes # 0.5 L (1.0-4.8) k/uL ABG pCO2 33 L (35-45) mmHg ABG HCO3 20 L (21-25) mmol/L ABG O2 Saturation 98.2 H (94-97) % Sodium (137-145) mmol/L Carbon Dioxide (22-30) mmol/L BUN (7-17) mg/dL Creatinine (0.52-1.04) mg/dL Glucose (74-99) mg/dL POC Glucose (mg/dL) 138 H (70-110) mg/dL Calcium (8.4-10.2) mg/dL Total Protein (6.3-8.2) g/dL Albumin (3.5-5.0) g/dL Vit D 1,25-Dihydroxy (20 - 79) pg/mL Crossmatch 02/21/22 02/21/22 Range/Units 03:32 06:16 RBC (3.80-5.40) m/uL Hgb (11.4-16.0) gm/dL Hct (34.0-46.0) % RDW (11.5-15.5) % Lymphocytes # (1.0-4.8) k/uL ABG pCO2 (35-45) mmHg ABG HCO3 (21-25) mmol/L ABG O2 Saturation (94-97) % Sodium 132 L (137-145) mmol/L Carbon Dioxide 19 L (22-30) mmol/L BUN 35 H (7-17) mg/dL Creatinine 1.12 H (0.52-1.04) mg/dL Glucose 118 H (74-99) mg/dL POC Glucose (mg/dL) 114 H (70-110) mg/dL Calcium 7.6 L (8.4-10.2) mg/dL Total Protein 5.2 L (6.3-8.2) g/dL Albumin 2.3 L (3.5-5.0) g/dL Vit D 1,25-Dihydroxy (20 - 79) pg/mL Crossmatch Microbiology - Last 24 Hours (Table) 02/18/22 12:01 Anaerobic Culture - Preliminary Heart Valve 02/18/22 12:01 Gram Stain - Preliminary Heart Valve Tissue Culture - Preliminary Assessment and Plan Assessment: Aortic valve endocarditis, secondary to Serratia marcescens. Postop day #3, status post aortic valve replacement. Severe aortic regurgitation, secondary to above. Routine postoperative ventilator management, with extubation on 02/19/2022. Acute blood loss anemia. Acute pulmonary edema. Plan: Plan dated 02/21/2022. The patient continues to improve. She's been weaned down to room air. She's getting lactated Ringer's at 20 mL an hour. We encouraged to deep breathe, cough, and clear any secretions. In addition, we recommend ongoing use of the incentive spirometer, every hour. We will continue to follow. She continues on GI and DVT prophylaxis. She continues on antibiotics. Overall prognosis remains guarded. We'll continue to follow make recommendations where appropriate. Time with Patient: Less than 30
--- NOTE | 2022-02-21 07:10 | P.PN ---
Subjective Progress Note Date: 02/21/22 Principal diagnosis: Status post open heart surgery This is a 36-year-old female patient was diagnosed recently with infective endocarditis and she underwent an aortic valve replacement using 23 mm On-X mechanical valve. The patient was seen this morning. She is hemodynamically stable. She has been maintaining normal sinus mechanism. On examination she continues to have ev idence of fluid overload. Currently she is on Lasix IV. Objective - Vital Signs Vital signs: Vital Signs Temp 98 F 02/21/22 04:00 Pulse 92 02/21/22 07:00 Resp 20 02/21/22 07:00 BP 122/71 02/20/22 09:00 Pulse Ox 95 02/21/22 07:00 FiO2 35 02/19/22 14:00 Intake & Output 02/20/22 02/21/22 02/21/22 18:59 06:59 18:59 Intake Total 1045 1004 126 Output Total 775 940 Balance 270 64 126 Weight 76.8 kg 77.9 kg Intake: IV 565 604 26 ACETAMINOPHEN IV (For NPO 200 200 ) 1,000 mg In Empty Bag 1 bag @ 400 mls/hr IVPB Q6H [facility] Rx#:[id number] Cefepime 2 gm In Sodium 100 100 Chloride 0.9% 100 ml @ 25 mls/hr IVPB Q8HR [facility] Rx# :[id number] Lactated Ringers 1,000 ml 190 220 20 @ 20 mls/hr IV .Q24H [facility] Rx#:[id number] NS Pressure Tubing 75 84 6 Oral 480 400 100 Output: Chest Tube Drainage 150 90 Chest Tube Left Pleural/ 50 0 Mediastinal Chest Tube Mediastinal 0 Chest Tube Right 20 Chest Tube Right Right 80 90 Pleural/Mediastinal Urine 625 850 Other: Voiding Method Indwelling Catheter Bedside Commode # Voids 1 ABP, PAP, CO, CI - Last Documented Arterial Blood Pressure 117/67 Pulmonary Artery Pressure 26/8 Cardiac Output 6.5 Cardiac Index 3.5 - Constitutional General appearance: Present: no acute distress - Respiratory Respiratory: bilateral: diminished - Cardiovascular Rhythm: regular - Labs CBC & Chem 7: 02/21/22 03:32 02/21/22 03:32 Labs: Abnormal Lab Results - Last 24 Hours (Table) 02/17/22 02/17/22 02/20/22 Range/Units 06:59 06:59 11:39 RBC (3.80-5.40) m/uL Hgb (11.4-16.0) gm/dL Hct (34.0-46.0) % RDW (11.5-15.5) % Lymphocytes # (1.0-4.8) k/uL ABG pCO2 (35-45) mmHg ABG HCO3 (21-25) mmol/L ABG O2 Saturation (94-97) % Sodium (137-145) mmol/L Carbon Dioxide (22-30) mmol/L BUN (7-17) mg/dL Creatinine (0.52-1.04) mg/dL Glucose (74-99) mg/dL POC Glucose (mg/dL) 123 H (70-110) mg/dL Calcium (8.4-10.2) mg/dL Total Protein (6.3-8.2) g/dL Albumin (3.5-5.0) g/dL Vit D 1,25-Dihydroxy 11 L (20 - 79) pg/mL Crossmatch See Detail 02/20/22 02/20/22 02/20/22 Range/Units 16:32 16:37 17:36 RBC (3.80-5.40) m/uL Hgb (11.4-16.0) gm/dL Hct (34.0-46.0) % RDW (11.5-15.5) % Lymphocytes # (1.0-4.8) k/uL ABG pCO2 33 L (35-45) mmHg ABG HCO3 19 L (21-25) mmol/L ABG O2 Saturation 98.2 H (94-97) % Sodium 133 L (137-145) mmol/L Carbon Dioxide 16 L (22-30) mmol/L BUN 33 H (7-17) mg/dL Creatinine 1.19 H (0.52-1.04) mg/dL Glucose 119 H (74-99) mg/dL POC Glucose (mg/dL) 120 H (70-110) mg/dL Calcium 7.7 L (8.4-10.2) mg/dL Total Protein (6.3-8.2) g/dL Albumin (3.5-5.0) g/dL Vit D 1,25-Dihydroxy (20 - 79) pg/mL Crossmatch 08/02/20/22 02/21/22 Range/Units 20:40 20:58 03:32 RBC 3.14 L (3.80-5.40) m/uL Hgb 8.3 L (11.4-16.0) gm/dL Hct 26.0 L (34.0-46.0) % RDW 18.7 H (11.5-15.5) % Lymphocytes # 0.5 L (1.0-4.8) k/uL ABG pCO2 33 L (35-45) mmHg ABG HCO3 20 L (21-25) mmol/L ABG O2 Saturation 98.2 H (94-97) % Sodium (137-145) mmol/L Carbon Dioxide (22-30) mmol/L BUN (7-17) mg/dL Creatinine (0.52-1.04) mg/dL Glucose (74-99) mg/dL POC Glucose (mg/dL) 138 H (70-110) mg/dL Calcium (8.4-10.2) mg/dL Total Protein (6.3-8.2) g/dL Albumin (3.5-5.0) g/dL Vit D 1,25-Dihydroxy (20 - 79) pg/mL Crossmatch 02/21/22 02/21/22 Range/Units 03:32 06:16 RBC (3.80-5.40) m/uL Hgb (11.4-16.0) gm/dL Hct (34.0-46.0) % RDW (11.5-15.5) % Lymphocytes # (1.0-4.8) k/uL ABG pCO2 (35-45) mmHg ABG HCO3 (21-25) mmol/L ABG O2 Saturation (94-97) % Sodium 132 L (137-145) mmol/L Carbon Dioxide 19 L (22-30) mmol/L BUN 35 H (7-17) mg/dL Creatinine 1.12 H (0.52-1.04) mg/dL Glucose 118 H (74-99) mg/dL POC Glucose (mg/dL) 114 H (70-110) mg/dL Calcium 7.6 L (8.4-10.2) mg/dL Total Protein 5.2 L (6.3-8.2) g/dL Albumin 2.3 L (3.5-5.0) g/dL Vit D 1,25-Dihydroxy (20 - 79) pg/mL Crossmatch Microbiology - Last 24 Hours (Table) 02/18/22 12:01 Anaerobic Culture - Preliminary Heart Valve 02/18/22 12:01 Gram Stain - Preliminary Heart Valve Tissue Culture - Preliminary Assessment and Plan Assessment: Assessment #1 infective endocarditis #2 status post aVR using mechanical valve #3 respiratory failure which has resolved #4 anemia which has been stable Plan #1 continue the current medical regimen #2 continue monitor the kidney function and electrolytes #3 follow-up with the patient
[2022-02-21] MEDS: INSULIN ASPART (NovoLOG) 100 UNIT/ML VIAL SQ SCH ×4 (07:38→21:49)
[2022-02-21] MEDS: FUROSEMIDE 10 MG/ML 2 ML VIAL IV SCH ×2 (08:10→17:23)
[2022-02-21] MEDS: ATORVASTATIN 40 MG TAB PO SCH (08:10)
[2022-02-21] MEDS: ASPIRIN 325 MG TAB PO SCH (08:10)
[2022-02-21] MEDS: HEPARIN SODIUM,PORCINE/PF 5,000 UNIT/0.5 ML SYRINGE SQ SCH ×2 (08:10→17:23)
[2022-02-21] MEDS: CEFEPIME 2 GM in SODIUM CHLORIDE 0.9% 100 ML IVPB SCH ×2 (08:11→17:23)
[2022-02-21] MEDS: METOPROLOL TARTRATE 50 MG TAB PO SCH ×2 (08:11→21:53)
[2022-02-21] MEDS: POTASSIUM CHLORIDE ER 10 MEQ TAB.ER.PRT PO SCH (08:11)
[2022-02-21] MEDS: ESCITALOPRAM 5 MG TAB PO SCH (08:12)
[2022-02-21] MEDS: IPRATROPIUM-ALBUTEROL 3 ML NEB INHALATION SCH ×4 (08:35→20:07)
[2022-02-21] MEDS ORDERED: HYDROcodone/APAP 5-325MG 1 EACH TAB PO PRN ×2 (08:52)
[2022-02-21] MEDS: SODIUM CHLORIDE 0.9% 1,000 ML IV SCH (09:11)
--- NOTE | 2022-02-21 10:55 | P.PN ---
Subjective Progress Note Date: 02/21/22 Principal diagnosis: Aortic valve endocarditis with severe aortic valve regurgitation, possible root abscess, Serratia marcescens bacteremia, sepsis, acute hypoxic respiratory fail ure requiring mechanical ventilation, altered mental status, acute anemia, acute kidney injury with a peak creatinine of 1.31. Past medical history significant for bacteremia with blood cultures from [facility] positive for Serratia marcescens, recent history of colitis and splenomegaly likely splenic infarct, anxiety, PTSD with history of self mutilation. POD #3 Aortic valve replacement with 23 mm On-X mechanical aortic valve, patch closure of aortotomy with involving pericardium, debridement of some annular infected tissue in aortic outflow tract, ligation of left atrial appendage with 35 mm AtriCure clip. Postoperative acute blood loss anemia and thrombocytopenia, expected given her preop anemia, hemodilution and cardiopulmonary bypass. The patient was seen and examined today 02/21/2022 at her bedside in the intensive care unit. She denies any complaints of pain or shortness of breath at this time. She does report that she has had some episodes of surgical type pain to her chest tube insertion sites throughout the night. Currently she is sitting up to bedside chair, is awake, alert, oriented 3 and is in no acute distress. She remains hemodynamically stable and is currently on no inotropic pressor support. Right IJ cordis remains in place with continuous CVP monito ring, current CVP pressure 4 mmHg. Oxygen saturation are 95% on room air and she is achieving 1000 mL on her incentive spirometry with encouragement. Right and left pleural chest tubes remain in place to low continuous wall suction -20 cm H2O. No air leak is present. Right pleural chest tube drained 70 mL of thin serosanguineous drainage in the last 8 hours and 170 mL output in the last 24 hours. Her left pleural chest tube has had no drainage in the last 24 hours. Her Jefferson catheter was removed yesterday and has had no difficulty with urine output since her catheter has been removed and her urine output has been 650 mL in the last 8 hours. Her laboratory results this morning show a WBC count of 6.8, hemoglobin 8.3, hematocrit 26.0, platelets 173, PT 11.3, INR 1.1, sodium 132, potassium 4.4, chloride 105, CO2 19, BUN 35, crit and 1.12, calcium 7.6, AST 34 and ALT 14. She reports she has been up ambulating in the intensive care unit hallway with standby assistance from nursing staff and tolerated it well this morning. The patient was seen by psychiatry yesterday and continues to deny any use of IV drugs, although she was started on Lexapro 5 mg by mouth daily for mood/anxiety and BuSpar 5 mg 3 times a day as needed for anxiety. Preliminary Gram stain cultures on her heart valve showed no organism seen after 48 hours and her anaerobic preliminary results remain pending. She remains on cefepime 2 g IV piggyback every 8 hours for antibiotic coverage managed by infectious disease. Objective - Vital Signs Vital signs: Vital Signs Temp 98 F 02/21/22 04:00 Pulse 92 02/21/22 07:00 Resp 20 02/21/22 07:00 BP 122/71 02/20/22 09:00 Pulse Ox 95 02/21/22 07:00 FiO2 35 02/19/22 14:00 Intake & Output 02/20/22 02/21/22 02/21/22 18:59 06:59 18:59 Intake Total 1045 1004 126 Output Total 775 940 Balance 270 64 126 Weight 76.8 kg 77.9 kg Intake: IV 565 604 26 ACETAMINOPHEN IV (For NPO 200 200 ) 1,000 mg In Empty Bag 1 bag @ 400 mls/hr IVPB Q6H [facility] Rx#:[id number] Cefepime 2 gm In Sodium 100 100 Chloride 0.9% 100 ml @ 25 mls/hr IVPB Q8HR [facility] Rx# :[id number] Lactated Ringers 1,000 ml 190 220 20 @ 20 mls/hr IV .Q24H [facility] Rx#:[id number] NS Pressure Tubing 75 84 6 Oral 480 400 100 Output: Chest Tube Drainage 150 90 Chest Tube Left Pleural/ 50 0 Mediastinal Chest Tube Mediastinal 0 Chest Tube Right 20 Chest Tube Right Right 80 90 Pleural/Mediastinal Urine 625 850 Other: Voiding Method Indwelling Catheter Bedside Commode # Voids 1 ABP, PAP, CO, CI - Last Documented Arterial Blood Pressure 117/67 Pulmonary Artery Pressure 26/8 Cardiac Output 6.5 Cardiac Index 3.5 - Exam CONSTITUTIONAL: Sitting up to the bedside chair in the intensive care unit, appears comfortable, cooperative, no apparent acute distress. HEENT: Neck is supple, no JVD, no lymphadenopathy. Right IJ Cordis in place and functioning. RESPIRATORY: Lungs sounds essentially clear throughout, diminished to his bilateral bases. Respirations are symmetrical and nonlabored. Currently oxygen saturations 95% on room air. Strong cough. Achieving 1000 mL on her incentive spirometry with much encouragement. CARDIOVASCULAR: Regular rhythm and rate. S1 and S2 present with mechanical valvular click, negative for S3, gallop or murmur. Sternum is stable. Palpable peripheral pulses bilaterally, no edema to her bilateral lower extremities. No calf pain or tenderness noted. Heart hugger in place and she is demonstrating appropriate use . Knee-high DAVI hose and sequential compression devices in place to her bilateral lower extremities. Bedside telemetry showing normal sinus rhythm heart rate 99 BPM. GASTROINTESTINAL: Abdomen soft, nontender, nondistended.Active bowel sounds present 4 quadrants. Tolerating diet. No guarding or rigidity. Passing flatus. GENITOURINARY: Continues to void. Urine output 650 mL in the last 8 hours. INTEGUMENTARY: Skin is warm and dry with no evidence of clubbing or cyanosis. Midline sternal incision clean dry and well approximated, covered with dry intact dressing. NEUROLOGIC: Cranial nerves II through XII intact. No focal deficits. MUSKULOSKELETAL: Able to move all extremities, strength equal bilaterally. PSYCHIATRIC: Alert and oriented to person place and time, appropriate affect, intact judgment and insight. INVASIVE LINES AND TUBES: Left and right pleural chest tubes present and connected to low continuous wall suction, no air leaks present. Left pleural chest tube with 0 output in the last 24 hours. Right pleural chest tube with 70 mL of thin serosanguineous drainage overnight, 170 ml output in the last 24 hours. Right internal jugular Cordis, right radial arterial line present. Current CVP pressure 4 mmHg. - Allied health notes Allied health notes reviewed: nursing - Labs CBC & Chem 7: 02/21/22 03:32 02/21/22 03:32 Labs: Abnormal Lab Results - Last 24 Hours (Table) 02/17/22 02/17/22 02/20/22 Range/Units 06:59 06:59 11:39 RBC (3.80-5.40) m/uL Hgb (11.4-16.0) gm/dL Hct (34.0-46.0) % RDW (11.5-15.5) % Lymphocytes # (1.0-4.8) k/uL ABG pCO2 (35-45) mmHg ABG HCO3 (21-25) mmol/L ABG O2 Saturation (94-97) % Sodium (137-145) mmol/L Carbon Dioxide (22-30) mmol/L BUN (7-17) mg/dL Creatinine (0.52-1.04) mg/dL Glucose (74-99) mg/dL POC Glucose (mg/dL) 123 H (70-110) mg/dL Calcium (8.4-10.2) mg/dL Total Protein (6.3-8.2) g/dL Albumin (3.5-5.0) g/dL Vit D 1,25-Dihydroxy 11 L (20 - 79) pg/mL Crossmatch See Detail 02/20/22 02/20/22 02/20/22 Range/Units 16:32 16:37 17:36 RBC (3.80-5.40) m/uL Hgb (11.4-16.0) gm/dL Hct (34.0-46.0) % RDW (11.5-15.5) % Lymphocytes # (1.0-4.8) k/uL ABG pCO2 33 L (35-45) mmHg ABG HCO3 19 L (21-25) mmol/L ABG O2 Saturation 98.2 H (94-97) % Sodium 133 L (137-145) mmol/L Carbon Dioxide 16 L (22-30) mmol/L BUN 33 H (7-17) mg/dL Creatinine 1.19 H (0.52-1.04) mg/dL Glucose 119 H (74-99) mg/dL POC Glucose (mg/dL) 120 H (70-110) mg/dL Calcium 7.7 L (8.4-10.2) mg/dL Total Protein (6.3-8.2) g/dL Albumin (3.5-5.0) g/dL Vit D 1,25-Dihydroxy (20 - 79) pg/mL Crossmatch 02/20/22 02/20/22 02/21/22 Range/Units 20:40 20:58 03:32 RBC 3.14 L (3.80-5.40) m/uL Hgb 8.3 L (11.4-16.0) gm/dL Hct 26.0 L (34.0-46.0) % RDW 18.7 H (11.5-15.5) % Lymphocytes # 0.5 L (1.0-4.8) k/uL ABG pCO2 33 L (35-45) mmHg ABG HCO3 20 L (21-25) mmol/L ABG O2 Saturation 98.2 H (94-97) % Sodium (137-145) mmol/L Carbon Dioxide (22-30) mmol/L BUN (7-17) mg/dL Creatinine (0.52-1.04) mg/dL Glucose (74-99) mg/dL POC Glucose (mg/dL) 138 H (70-110) mg/dL Calcium (8.4-10.2) mg/dL Total Protein (6.3-8.2) g/dL Albumin (3.5-5.0) g/dL Vit D 1,25-Dihydroxy (20 - 79) pg/mL Crossmatch 02/21/22 02/21/22 Range/Units 03:32 06:16 RBC (3.80-5.40) m/uL Hgb (11.4-16.0) gm/dL Hct (34.0-46.0) % RDW (11.5-15.5) % Lymphocytes # (1.0-4.8) k/uL ABG pCO2 (35-45) mmHg ABG HCO3 (21-25) mmol/L ABG O2 Saturation (94-97) % Sodium 132 L (137-145) mmol/L Carbon Dioxide 19 L (22-30) mmol/L BUN 35 H (7-17) mg/dL Creatinine 1.12 H (0.52-1.04) mg/dL Glucose 118 H (74-99) mg/dL POC Glucose (mg/dL) 114 H (70-110) mg/dL Calcium 7.6 L (8.4-10.2) mg/dL Total Protein 5.2 L (6.3-8.2) g/dL Albumin 2.3 L (3.5-5.0) g/dL Vit D 1,25-Dihydroxy (20 - 79) pg/mL Crossmatch Microbiology - Last 24 Hours (Table) 02/18/22 12:01 Anaerobic Culture - Preliminary Heart Valve 02/18/22 12:01 Gram Stain - Preliminary Heart Valve Tissue Culture - Preliminary - Imaging and Cardiology Chest x-ray: report reviewed, image reviewed Assessment and Plan Assessment: 1. 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 Serratia bacteremia, sepsis on cefepime 2 g IV piggyback every 8 hours managed by infectious disease, blood cultures from 02/11/2022 showed no growth after 144 hours, aortic valve Gram stain cultures show no growth after 48 hours, anaerobic culture results remain pending 3. Acute hypoxic respiratory failure requiring mechanical ventilation 4. Altered mental status this admission, resolved 5. Acute on chronic anemia, status post blood transfusion hemoglobin 8.3 today 02/20/2022 6. Acute kidney injury, BUN 35 and creatinine 1.12 today 7. Recent history of colitis and splenomegaly likely splenic infarct, status post colonoscopy which showed normal appearing colon from the rectum to the cecum with no evidence of colitis or colorectal aplasia 8. History of anxiety 9. PTSD with history of self mutilation 10. Chronic dental abscess tooth #15, status post surgical extraction of tooth 11. Postoperative acute blood loss anemia, an expected outcome given her preoperative anemia, hemodilution and cardiopulmonary bypass 12. Suspected IV drug abuse per patient's father Plan: 1. Continue to maximize medical therapy with aspirin, statin, and beta bryan. Will increase metoprolol tartrate 50 mg by mouth twice a day. 2. Encourage incentive spirometry use 10 times every hour while awake. Bronchodilators per pulmonology/critical care medicine. 3. Increase activity, ambulate as tolerated. PT/OT/cardiac rehab following. 4. Will monitor daily labs and chest x-rays. Electrolyte replacement per protocol. 5. Pain control with current medication regimen. Avoid nephrotoxic agents. 6. GI and DVT prophylaxis. 7. Remove right IJ Cordis 8. Insulin management per primary care service. Patient is a nondiabetic with a preoperative hemoglobin A1c 5.9%. 9. We will remove her right and left pleural chest tubes today. 10. Patient will need to be started on Coumadin after all lines and tubes have been discontinued, will stop Plavix and decrease aspirin to 81 mg by mouth daily once we start Coumadin. Goal INR for first 3 months 2.0-3.0, after 3 months goal INR 1.5-2. Daily PT and INR. PT is 11.3 and INR is 1.1 today. Coumadin 2 mg by mouth today. 11. Continue to record strict accurate intake and output. Daily weights 12. Remove right radial arterial line. 13. Continue Lasix 20 mg IV every 8 hours. Potassium chloride 10 mEq by mouth twice a day until Lasix is discontinued. 14. Psychiatry consult noted and appreciated. 15. Continue cefepime 2 g IV piggyback every 8 hours managed by infectious disease. Continue to follow aortic valve cultures. Pathology results for aortic valve remain pending. 16. More recommendations to follow based on patient's clinical course. Time with Patient: Greater than 30
[2022-02-21 11:35] LABS: Glucose,Whole Blood 121 mg/dL (70-110)
[2022-02-21] MEDS: CHOLESTYRAMINE (WITH SUGAR) 4 GM PACKET PO SCH ×2 (11:41→18:59)
[2022-02-21 12:08] LABS: Free Lambda Lt Chain Qnt, Seru 8.62 mg/dL (0.57-2.63)
--- NOTE | 2022-02-21 14:25 | P.PN ---
Progress Note - Text Progress Note Date: 02/21/22 Interval History: Patient was seen today for psychiatric follow up. Patient claims that she is doing a lot better today as she got "most of those tubes out" referring to her central line and other catheters removed today. She states that she is able to eat lunch today and was happy that her parents came to visit her. She states that she is feeling more optimistic about her future. She continues to deny any current drug use and claims that she wants to stay with her parents upon discharge and believes that it will be a safe environment for her. She claims that her anxiety is much better under control today. We spoke more about her medications as she refused the Lexapro and did not take any BuSpar. She believes that she will be better for doing therapy at this time and would like to revisit medications in the future. At this time patient denies any suicidal or homical ideations, intent or plan. Patient denies any auditory, visual hallucinations and denies any paranoia or delusions. She states that she slept fairly last night, fair appetite today. Harness Installer spoke with patients father over the phone William at [phone] who states that he had concerns about his daughter and her mental health. She apparently has been battling mental health issues for several years. He states that she has history of self mutilation/cutting. He states that his daughter, patient's sister went to her house and "slept the area" looking for any drugs or any weapons. He also states that his house is secure and has no guns or weapons in it. He states that him and his will be able to look after patient carefully and will continue to push her into getting more mental health care as an outpatient near where they live in [facility]. Mental Status Exam: General Appearance: Patient appears to be lying in her bed, attempts to be cooperative. Patient appears to have fair hygiene and grooming wearing hospital gown with fair eye contact. Behavior: She appears to be less anxious today. Appropriate. Speech: Patient's speech is fluent and nonpressured. Shaky Mood/Affect: Patient reports their mood is "good", affect is congruent and brighter Suicidality/Homicidality: Patient denies having any suicidal or homicidal ideation intent or plan. Perceptions: Patient denies any visual hallucinations and denies any auditory hallucinations Though content/process: There is no evidence of any delusional thought content and thought process is linear and goal-directed. Vague at times. Memory and concentration: AOX3, grossly intact for the purposes of this session Judgment and insight: Improving/superficial at times. IMPRESSIONS: Anxiety disorder unspecified, rule out PTSD History of depressive disorder PLAN: -At this time patient DOES NOT meet criteria for inpatient psychiatric admission. -Would recommend the following medication changes/additions: Lexapro 5 mg daily for mood/anxiety, BuSpar 5 mg 3 times a day when necessary for anxiety, melatonin 5 mg daily at bedtime when necessary for sleep however patient is not taking these medications and wants to re-vist this in the future. -manager workers compensation to provide patient with outpatient mental health/psychiatry resources for appropriate follow up upon discharge -Harness Installer spoke with patient about substance abuse and the harmful effects on medical and mental health, patient verbally understood and agreed. SW to also provide resources for subtance use treatment. -Communicated plan to patient's nurse -at this time will sign off. -Please contact with any questions.
[2022-02-21 17:45] LABS: Glucose,Whole Blood 128 mg/dL (70-110)
[2022-02-21] MEDS ORDERED: WARFARIN 2 MG TAB PO ONE (18:00)
[2022-02-21 20:29] LABS: Glucose,Whole Blood 150 mg/dL (70-110)
[2022-02-21] MEDS: SENNOSIDES-DOCUSATE SODIUM 1 EACH TAB PO SCH (21:53)
[2022-02-21] MEDS: ACETAMINOPHEN TAB 325 MG TAB PO PRN (21:54)
--- NOTE | 2022-02-21 22:11 | P.PN ---
Subjective This is a pleasant 56 years old female with past medical history of anxiety, PTSD, presents with altered mental status. She is a patient of Dr. Vizcarra. Patient was admitted in the ICU from the emergency room, patient could not provide information which were obtained from medical records and staff. per ems pt was recently at [place] for a blood infection. pt's last known well was last night at 10:30pm. pt found by family this evening altered. Patient was intubated in the emergency room Patient had a fever of 103 on admission, she is tachypneic 29-31, blood pressure 107/53 Labs reviewed on admission, WBC 8.7, low hemoglobin 6.9, low platelet 120, with thrombocytopenia which is mild ESR is elevated at 90, CRP elevated 8.9 PH normal 7.4, pCO2 normal at 37 INR 1.2 Sodium 132, potassium 3.2, creatinine 1.0. Liver enzymes are normal as well as bilirubin. Troponin is elevated at 0.37. ProBNP is elevated to 38,000 Urinalysis showing 3+ protein, large blood, RBC 127, WBC 27. Urine test is negative. Urine drug screen is positive for opioids EKG showing sinus tachycardia at [address]-T changes Chest x-ray: Acute pulmonary edema Computed tomography scan of the head and neck: Normal cervical spine with no fracture and normal CT of the brain by radiologist In the emergency room she received IV fluids with normal saline, vancomycin and ceftriaxone and ibuprofen and IV Tylenol, Dilaudid and lorazepam and succi nylcholine 02/10/2022 Patient is a pleasant 36 years old female was admitted with AMS and acute pul monary edema, she got intubated on admission and entered closely in the ICU with pulmonary/critical care team. Echocardiogram showed evidence of regurgitation on the aortic valve, which is confirmatory with WADE showed severe aortic regurgitation. Patient's risk factors with subacute bacterial endocarditis with sepsis secondary with Serratia marcescens and blood culture, a patient currently kept o n antibiotics with cefepime. IV vancomycin discontinued. She is also gentle hydration Today several consultants were on the case including pulmonary, cardiology, cardiothoracic surgery infectious disease with recommendation to transfer patient to tertiary care center I discussed the case with MICU fellow at [facility] in [place] Dr. Valladares and I discussed the case with her and she currently accepted the patient depending bed availability. 02/11/2022 Patient remains critically ill in the intensive care unit, she still intubated and on mechanical ventilation. Pulmonary/critical care to follow closely and help with vent management. She remains on broad-spectrum antibiotics of cefepime for positive blood culture with Serratia for her endocarditis I discussed the case with her report MICU team yesterday and they Accepted the patient, pending bed availability. Patient is followed closely by several consultants including cardiology, cardiothoracic and surgery teams as well as infectious disease. And WADE are noted. 02/12/2022 Patient got extubated and currently her respiratory status is stable and at baseline or close to baseline she is not tachypneic or hypoxic. This morning she was still tired and very sleepy and she could not provide information however she started waking up throughout the day and she is alert awake and oriented. Repeat chest x-ray showing clearance of pulmonary edema but there is development of right lower lobe infiltrate. Rest of vitals and labs are stable. She has low-grade temperature of 99.8 today. She is currently on cefepime. I discussed the case again with [facility] at her report, they informed me her transfer was canceled because [facility] has reached its full capacity. On reviewing this with the staff patient may not needed to be transferred and her aortic valve regurgitation be managed in this facility. However we will follow up with pulmonary/critical care team and surgery teams. 02/13/2022 Patient today is fully awake and oriented, she looks a pleasant and calm, she denies any specific symptoms to me. She looks mildly tired and lethargic. However her mentation is normal. She denies chest pain or dyspnea. No abdominal pain or vomiting or diarrhea. No urinary complaints. No headache or weakness or numbness. No dizziness. She is hemodynamically stable. Labs look stable. She's continued on IV cefepime. Repeat blood culture is negative. Cardiothoracic surgery team recommended aortic valve repair during this admission and colonoscopy to be done prior to the procedure however a decline in the procedure We will follow up with the consult recommendation 02/14/2022 Patient today awake and alert, she did not complain of from any specific complaint to me, she has insight into [place] and she has several questions ANSWERED to her satisfaction, most of them were around colonoscopy and I'll exp pamela to her extensively. It looks like later on patient evaluated by GI team for clearance prior to expected cardiothoracic surgery to replace the aortic valve. And per GI team patient is going for colonoscopy tomorrow morning. Patient denies chest pain or dyspnea. No abdominal pain with she still have some diarrhea. Other than that she remains on cefepime as per ID team. vitals are reviewed s table. 02/15/2022 Patient remains in the ICU, fully awake and oriented, calm and not in distress. Vitals and labs look stable. Reviewed in details Abdomen discussion with the patient looks like she is agreeable to colonoscopy. Also she told me about the need to take her to without and that she is thinking about it and that she is going to discussed with the surgeon. Cardiothoracic surgery team on the case and the planned for aortic valve replacement given the damage caused by endocarditis. Repeat blood culture are negative so far. The patient remains on IV cefepime per ID team Colonoscopy results show normal colon per report 02/16/2022 Patient removed to the select unit, currently she is awake alert looks comfortable and pleasant and she is at room air, denies any specific symptoms, no chest pain, no abdominal pain, no dyspnea. No headache or weakness or numbness. And vitals are stable. She was happy that her tooth was extracted and she was put to sleep so she could not feel it. Patient kept now on IV antibiotic with cefepime and the recommendation of ID team, she will need a prolonged course of IV antibiotics. Cardiothoracic surgery team are planning for aortic valve replacement, with further workup is in progress I'm resume the care of the patient today 02/20/2022 Patient is status post aortic valve replacement with mechanical aortic valve on 02/18. Today postop day #2. He is been marked closely in the ICU. She is awake and alert, she is complaining from some discomfort at the surgery site. Blood pressure is borderline and she is mildly tachypneic, tachycardic. Hemoglobin 8.3, creatinine 1.19. She is currently Kept on cefepime also IV Lasix added by cardiothoracic surgery team on the dose of 20 mg twice a day. 02/21/2022 Patient is Zhou today from pain and discomfort at chest tube 2. With surgery team on the case and plan to remove these tubes today. Other than that she is awake and alert denies any other new complaints. Hemoglobin 8.3, creatinine 1.12. She remains on cefepime and IV Lasix Chest x-ray showing persistent cardiomegaly and pulmonary vascular congestion with bilateral basal infiltrates. Surgery team are planning to start her on Coumadin today, and continue with aspirin 81 and DC Plavix per the recommendation. Goal INR is 2-3 Objective - Vital Signs Vital signs: Vital Signs Temp 97.6 F 02/21/22 08:00 Pulse 75 02/21/22 11:00 Resp 25 H 02/21/22 11:00 BP 122/71 02/21/22 11:00 Pulse Ox 98 02/21/22 10:00 FiO2 35 02/19/22 14:00 Intake & Output 02/20/22 02/21/22 02/21/22 18:59 06:59 18:59 Intake Total 1045 1004 450 Output Total 775 940 560 Balance 270 64 -110 Weight 76.8 kg 77.9 kg Intake: IV 565 604 130 ACETAMINOPHEN IV (For NPO 200 200 ) 1,000 mg In Empty Bag 1 bag @ 400 mls/hr IVPB Q6H [facility] Rx#:[id number] Cefepime 2 gm In Sodium 100 100 Chloride 0.9% 100 ml @ 25 mls/hr IVPB Q8HR [facility] Rx# :[id number] Lactated Ringers 1,000 ml 190 220 100 @ 20 mls/hr IV .Q24H [facility] Rx#:[id number] NS Pressure Tubing 75 84 30 Oral 480 400 320 Output: Chest Tube Drainage 150 90 0 Chest Tube Left Pleural/ 50 0 0 Mediastinal Chest Tube Mediastinal 0 Chest Tube Right 20 Chest Tube Right Right 80 90 0 Pleural/Mediastinal Urine 625 850 560 Other: Voiding Method Indwelling Catheter Bedside Commode Bedside Commode # Voids 1 ABP, PAP, CO, CI - Last Documented Arterial Blood Pressure 113/55 Pulmonary Artery Pressure 26/8 Cardiac Output 6.5 Cardiac Index 3.5 - Exam -GENERAL: The patient is awake and alert but tired HEENT: Pupils are round and equally reacting to light. EOMI. No scleral icterus. No conjunctival pallor. Normocephalic, atraumatic. No pharyngeal erythema. No thyromegaly. CARDIOVASCULAR: S1 and S2 present. no murmurs, rubs, or gallops. -PULMONARY: Chest is clear to auscultation, no wheezing or crackles. Surgical wound, and a dressing. Rest of exam was deferred surgery team ABDOMEN: Soft, nontender, nondistended, normoactive bowel sounds. No palpable organomegaly. MUSCULOSKELETAL: No joint swelling or deformity. EXTREMITIES: No cyanosis, clubbing, or pedal edema. NEUROLOGICAL: Gross neurological examination did not reveal any focal deficits. SKIN: No rashes. no petechiae. - Labs CBC & Chem 7: 02/21/22 03:32 02/21/22 03:32 Labs: Abnormal Lab Results - Last 24 Hours (Table) 02/16/22 02/17/22 02/17/22 Range/Units 15:30 06:59 06:59 RBC (3.80-5.40) m/uL Hgb (11.4-16.0) gm/dL Hct (34.0-46.0) % RDW (11.5-15.5) % Lymphocytes # (1.0-4.8) k/uL ABG pCO2 (35-45) mmHg ABG HCO3 (21-25) mmol/L ABG O2 Saturation (94-97) % Sodium (137-145) mmol/L Carbon Dioxide (22-30) mmol/L BUN (7-17) mg/dL Creatinine (0.52-1.04) mg/dL Glucose (74-99) mg/dL POC Glucose (mg/dL) (70-110) mg/dL Calcium (8.4-10.2) mg/dL Total Protein (6.3-8.2) g/dL Albumin (3.5-5.0) g/dL Vit D 1,25-Dihydroxy 11 L (20 - 79) pg/mL Free Lambda LC, Quant 8.62 H (0.57-2.63) mg/dL Crossmatch See Detail 02/20/22 02/20/22 02/20/22 Range/Units 16:32 16:37 17:36 RBC (3.80-5.40) m/uL Hgb (11.4-16.0) gm/dL Hct (34.0-46.0) % RDW (11.5-15.5) % Lymphocytes # (1.0-4.8) k/uL ABG pCO2 33 L (35-45) mmHg ABG HCO3 19 L (21-25) mmol/L ABG O2 Saturation 98.2 H (94-97) % Sodium 133 L (137-145) mmol/L Carbon Dioxide 16 L (22-30) mmol/L BUN 33 H (7-17) mg/dL Creatinine 1.19 H (0.52-1.04) mg/dL Glucose 119 H (74-99) mg/dL POC Glucose (mg/dL) 120 H (70-110) mg/dL Calcium 7.7 L (8.4-10.2) mg/dL Total Protein (6.3-8.2) g/dL Albumin (3.5-5.0) g/dL Vit D 1,25-Dihydroxy (20 - 79) pg/mL Free Lambda LC, Quant (0.57-2.63) mg/dL Crossmatch 02/20/22 02/20/22 02/21/22 Range/Units 20:40 20:58 03:32 RBC 3.14 L (3.80-5.40) m/uL Hgb 8.3 L (11.4-16.0) gm/dL Hct 26.0 L (34.0-46.0) % RDW 18.7 H (11.5-15.5) % Lymphocytes # 0.5 L (1.0-4.8) k/uL ABG pCO2 33 L (35-45) mmHg ABG HCO3 20 L (21-25) mmol/L ABG O2 Saturation 98.2 H (94-97) % Sodium (137-145) mmol/L Carbon Dioxide (22-30) mmol/L BUN (7-17) mg/dL Creatinine (0.52-1.04) mg/dL Glucose (74-99) mg/dL POC Glucose (mg/dL) 138 H (70-110) mg/dL Calcium (8.4-10.2) mg/dL Total Protein (6.3-8.2) g/dL Albumin (3.5-5.0) g/dL Vit D 1,25-Dihydroxy (20 - 79) pg/mL Free Lambda LC, Quant (0.57-2.63) mg/dL Crossmatch 02/21/22 02/21/22 02/21/22 Range/Units 03:32 06:16 11:34 RBC (3.80-5.40) m/uL Hgb (11.4-16.0) gm/dL Hct (34.0-46.0) % RDW (11.5-15.5) % Lymphocytes # (1.0-4.8) k/uL ABG pCO2 (35-45) mmHg ABG HCO3 (21-25) mmol/L ABG O2 Saturation (94-97) % Sodium 132 L (137-145) mmol/L Carbon Dioxide 19 L (22-30) mmol/L BUN 35 H (7-17) mg/dL Creatinine 1.12 H (0.52-1.04) mg/dL Glucose 118 H (74-99) mg/dL POC Glucose (mg/dL) 114 H 121 H (70-110) mg/dL Calcium 7.6 L (8.4-10.2) mg/dL Total Protein 5.2 L (6.3-8.2) g/dL Albumin 2.3 L (3.5-5.0) g/dL Vit D 1,25-Dihydroxy (20 - 79) pg/mL Free Lambda LC, Quant (0.57-2.63) mg/dL Crossmatch Microbiology - Last 24 Hours (Table) 02/18/22 12:01 Gram Stain - Preliminary Heart Valve Tissue Culture - Preliminary 02/18/22 12:01 Anaerobic Culture - Preliminary Heart Valve Assessment and Plan Assessment: Subacute bacterial endocarditis Severe aortic regurgitation secondary to above, status post aortic valve replacement with mechanical valve on 02/18 Sepsis with fever and tachypnea, resolved Acute hypoxic respiratory failure requiring intubation and mechanical ventilati on, she got extubated and currently on nasal cannula Metabolic encephalopathy Acute pulmonary edema, could be acute CHF versus RDS Severe anemia, microcytic hyperchromic requiring blood transfusion 4 Elevated troponin Plan: This is a pleasant 56 years old female who presents with AMS, on mechanical ventilation, anemia Continue with antibiotics as per ID team, currently on cefepime Keep follow-up and repeat blood culture, negative so far Cardiothoracic surgery team of the case, patient is a status post aortic valve replacement. Patient is started with coumadine. Also on aspirin 81 mg Several consultants on the case including infectious disease, pulmonary/critical care, cardiology, cardiothoracic surgery labs and medication were reviewed.. Continue same treatment. Continue with symptomatic treatment. Resume home medication. Monitor lytes and vitals. DVT and GI prophylaxis. Further recommendations as per clinical course of the patient DVT prophylaxis: asparin and common GI Prophylaxis: Ppi Prognosis is guarded
[2022-02-22] MEDS: CEFEPIME 2 GM in SODIUM CHLORIDE 0.9% 100 ML IVPB SCH ×4 (00:41→23:58)
[2022-02-22] MEDS: FUROSEMIDE 10 MG/ML 2 ML VIAL IV SCH ×2 (00:41→09:02)
[2022-02-22] MEDS: HEPARIN SODIUM,PORCINE/PF 5,000 UNIT/0.5 ML SYRINGE SQ SCH ×2 (02:18→08:45)
[2022-02-22] MEDS: ACETAMINOPHEN TAB 325 MG TAB PO PRN ×4 (04:53→19:44)
[2022-02-22 06:21] LABS: Glucose,Whole Blood 122 mg/dL (70-110)
[2022-02-22] MEDS: PANTOPRAZOLE 40 MG TABLET PO SCH (06:22)
[2022-02-22] MEDS: INSULIN ASPART (NovoLOG) 100 UNIT/ML VIAL SQ SCH ×4 (06:26→20:07)
--- NOTE | 2022-02-22 06:42 | XR ---
EXAMINATION TYPE: XR chest 1V portable DATE OF EXAM: 02/22/2022 CLINICAL HISTORY: Difficulty breathing progress study. Postoperative open cardiac surgery. TECHNIQUE: Single AP portable upright view of the chest is obtained. COMPARISON: Chest x-ray from one day earlier and older studies. FINDINGS: Interval removal of right internal jugular Cordis sheath. Overlying sternal wires redemons trated. Interval removal of bilateral chest tubes. Left atrial appendage clip redemonstrated. Suspect ed Cardiac septal closure device again seen. Persistent right greater than left bilateral lower lung opacities. Persistent cardiomegaly with mild central vascular congestion. Stable tiny right apical pneumothorax. Osseous structures are intact. IMPRESSION: Cardiomegaly with mild central vascular congestion and tiny left pleural effusion redemon strated. Persistent right greater than left bilateral lower lung acute infiltrates and/or atelectasis redemonstrated without significant interval change. Stable tiny right apical pneumothorax despite in terval bilateral chest tube removal.
[2022-02-22 07:03] LABS: Anisocytosis Slight; Basophils % (A) 0 %; Eosinophils # (A) 0.1 k/uL (0-0.7); Eosinophils % (A) 1 %; HGB 7.8 gm/dL (11.4-16.0); Hypochromasia Moderate; Lymphocytes # (A) 0.5 k/uL (1.0-4.8); Lymphocytes % (A) 9 %; MCH 26.9 pg (25.0-35.0); MCHC 32.3 g/dL (31.0-37.0); MCV 83.3 fL (80.0-100.0); Mean Platelet Volume 8.3; Microcytosis Slight; Monocytes # (A) 0.3 k/uL (0-1.0); Monocytes % (A) 5 %; Neutrophils # (A) 4.7 k/uL (1.3-7.7); Neutrophils % (A) 84 %; Platelet Count 185 k/uL (150-450); Poikilocytosis Slight; RBC 2.88 m/uL (3.80-5.40); WBC 5.6 k/uL (3.8-10.6)
[2022-02-22 07:09] LABS: INR 1.1 (<1.2); Prothrombin Time 11.4 sec (9.0-12.0)
--- NOTE | 2022-02-22 07:31 | P.PN ---
Subjective Progress Note Date: 02/22/22 Principal diagnosis: [place] valve endocarditis. On 02/20/2022 patient seen in follow-up in intensive care unit, she is postoperative day #2, status post aortic valve replacement, with the mechanical aortic valve, patch closure of the aortotomy with involving pericardium, and de bridement of some annular infected tissue as well as left atrial appendage ligation. Patient is awake and alert, she was successfully weaned and extubated from the mechanical ventilator yesterday on 02/19/2022. She is breathing comfortably, room air pulse ox is 94-96%, she is afebrile, hemodynamically she is stable, she is on lactated Ringer's at a rate of 20 ML per hour, and antibiotics with cefepime, no vasopressor support. Yesterday she had another right-sided chest tube placed by CT surgery team. Currently has [address], one mediastinal, 1 left pleural/mediastinal, 1 right pleural, and one right pleural mediastinal chest tubes, no air leak noted. Still draining serosanguineous output, with at least output from the mediastinal chest tube. Today's chest x-ray showing postsurgical changes and streaky atelectasis in the right mid and lower lung. Patient is only achieving 300 mL on the incentive spirometer, she is having significant postsurgical pain. She is receiving pain medications. Patient has been up out of bed in the chair, tolerated activity fairly well. Urinary catheter is in place, patient is producing urine in the order of 20-30 ML per hour. She has been started on diuretics by CT surgery. Today's labs have been reviewed, white blood cell count is 8.4, hemoglobin is 8.3, platelet count is 152, sodium is 135, potassium is 4.5, chloride is 109, C O2 is 18, BUN is 30 creatinine is 1.11. Progress note dated 02/21/2022. This is a 36-year-old female who is postoperative day #3, status post aortic valve replacement with a mechanical aortic valve, as well as left atrial appendage ligation. The patient is currently on room air. The patient is g etting lactated Ringer's at 20 mL an hour. She's had a uneventful night according to the nurses. Labs today include a white count 6.8, hemoglobin 8.3, hematocrit 26, and platelet count 273,000. Sodium 132, potassium 4.4, chlorides 105, CO2 19, anion gap 8, BUN 35, and creatinine 1.12. Albumin is 2.3. Previous blood cultures from February 09 were positive for Serratia marcescens. Chest x- ray shows some cardiomegaly, with mild vascular congestion. Progress note dated 02/22/2022. 36-year-old female postop day #4, status post aortic valve replacement with a mechanical aortic valve, as well as left atrial appendage ligation, for [place] valve endocarditis, secondary to Serratia. Currently, the patient's doing well. She seen today in room 267. She is on room air. No IV fluids. She was a ctually walking the hallway when I saw her. She had no complaints, anion uneventful night. White count 5.6, hemoglobin 7.8, hematocrit 24, and platelet count 185,000. PT 11.4, INR 1.1. Recent blood cultures, are negative. Previous blood cultures from February 09 showed Serratia marcescens. Chest x-ray shows some cardiomegaly, mild fluid overload, and some bilateral infiltrates. Objective - Vital Signs Vital signs: Vital Signs Temp 98.7 F 02/22/22 04:00 Pulse 90 02/22/22 06:00 Resp 31 H 02/22/22 06:00 BP 129/76 02/22/22 06:00 Pulse Ox 96 02/22/22 06:00 FiO2 35 02/22/22 04:00 Intake & Output 02/21/22 02/22/22 02/22/22 18:59 06:59 18:59 Intake Total 580 746 50 Output Total 1600 2850 Balance -1020 -2104 50 Weight 84.1 kg Intake: IV 260 146 Cefepime 2 gm In Sodium 100 Chloride 0.9% 100 ml @ 25 mls/hr IVPB Q8HR [facility] Rx# :[id number] Lactated Ringers 1,000 ml 200 40 @ 20 mls/hr IV .Q24H [facility] Rx#:[id number] NS Pressure Tubing 60 6 Oral 320 600 50 Output: Chest Tube Drainage 0 Chest Tube Left Pleural/ 0 Mediastinal Chest Tube Right Right 0 Pleural/Mediastinal Urine 1600 2850 Other: Voiding Method Bedside Commode Bedside Commode ABP, PAP, CO, CI - Last Documented Arterial Blood Pressure 137/59 Pulmonary Artery Pressure 26/8 Cardiac Output 6.5 Cardiac Index 3.5 - Exam No acute distress, oriented 3. Currently on room air. HEENT examination is grossly unremarkable. Neck supple. Full range of motion. No adenopathy thyromegaly or neck vein distention. Cardiovascular examination reveals regular rhythm rate. S1-S2 normal. No S3 or S4. No discernible murmur noted. Heart rate 90 bpm. Lungs reveal mostly clear breath sounds. Minimal scattered rhonchi. No wheezes or crackles. Breath sounds are equal bilaterally. Room air saturation is 98 %. Abdomen soft bowel sounds are heard. No masses or tenderness. Extremities are intact. No cyanosis clubbing or edema. Skin is without rash or lesion. Neurologic examination is brief but nonfocal. - Labs CBC & Chem 7: 02/22/22 06:25 02/21/22 03:32 Labs: Abnormal Lab Results - Last 24 Hours (Table) 02/16/22 02/21/22 02/21/22 Range/Units 15:30 11:34 17:43 RBC (3.80-5.40) m/uL Hgb (11.4-16.0) gm/dL Hct (34.0-46.0) % RDW (11.5-15.5) % Lymphocytes # (1.0-4.8) k/uL POC Glucose (mg/dL) 121 H 128 H (70-110) mg/dL Free Lambda LC, Quant 8.62 H (0.57-2.63) mg/dL 02/21/22 02/22/22 02/22/22 Range/Units 20:28 06:19 06:25 RBC 2.88 L (3.80-5.40) m/uL Hgb 7.8 L (11.4-16.0) gm/dL Hct 24.0 L (34.0-46.0) % RDW 19.0 H (11.5-15.5) % Lymphocytes # 0.5 L (1.0-4.8) k/uL POC Glucose (mg/dL) 150 H 122 H (70-110) mg/dL Free Lambda LC, Quant (0.57-2.63) mg/dL Microbiology - Last 24 Hours (Table) 02/18/22 12:01 Gram Stain - Preliminary Heart Valve Tissue Culture - Preliminary Assessment and Plan Assessment: Aortic valve endocarditis, secondary to Serratia marcescens. Postop day #4, status post aortic valve replacement. Severe aortic regurgitation, secondary to above. Routine postoperative ventilator management, with extubation on 02/19/2022. Acute blood loss anemia. Acute pulmonary edema. Plan: Plan dated 02/21/2022. The patient continues to improve. She's been weaned down to room air. She's g etting lactated Ringer's at 20 mL an hour. We encouraged to deep breathe, cough, and clear any secretions. In addition, we recommend ongoing use of the incentive spirometer, every hour. We will continue to follow. She continues on GI and DVT prophylaxis. She continues on antibiotics. Overall prognosis remains guarded. We'll continue to follow make recommendations where appropriate. Plan dated 02/22/2022. The patient is doing very well. The patient's on room air. No IV fluids. Labs, x-rays, and medications are reviewed. Most recent blood cultures are negative. The patient remains on cefepime. We will continue to follow. In my opinion, the patient is stable for transfer out of the intensive care unit. No additional recommendations are made. Prognosis is certainly very guarded. She continues on GI and DVT prophylaxis. Time with Patient: Less than 30
[2022-02-22 07:35] LABS: ALT 21 U/L (4-34); AST 40 U/L (14-36); African American GFR (CKD) >90 (>60 ml/min/1.73 sqM); Albumin 2.3 g/dL (3.5-5.0); Alkaline Phosphatase 118 U/L (38-126); Anion Gap 7 mmol/L; Blood Urea Nitrogen 32 mg/dL (7-17); Calcium 7.3 mg/dL (8.4-10.2); Carbon Dioxide 20 mmol/L (22-30); Chloride 107 mmol/L (98-107); Glucose 112 mg/dL (74-99); Non-African American GFR(CKD) 79 (>60 ml/min/1.73 sqM); Potassium 4.1 mmol/L (3.5-5.1); Sodium 134 mmol/L (137-145); Total Bilirubin 0.6 mg/dL (0.2-1.3); Total Protein 5.3 g/dL (6.3-8.2)
[2022-02-22] MEDS: IPRATROPIUM-ALBUTEROL 3 ML NEB INHALATION SCH ×4 (07:59→19:47)
[2022-02-22] MEDS: ASPIRIN 81 MG PO SCH (09:02)
[2022-02-22] MEDS: METOPROLOL TARTRATE 25 MG TAB PO SCH ×2 (09:02→20:19)
[2022-02-22] MEDS: ATORVASTATIN 40 MG TAB PO SCH (09:02)
[2022-02-22] MEDS: POTASSIUM CHLORIDE ER 10 MEQ TAB.ER.PRT PO SCH (09:03)
[2022-02-22] MEDS: ESCITALOPRAM 5 MG TAB PO SCH (09:14)
[2022-02-22] MEDS ORDERED: CALCIUM GLUCONATE IN NACL 1 GM in SALINE 1 100ML.BAG IVPB ONE (09:19)
--- NOTE | 2022-02-22 11:44 | XR ---
EXAMINATION TYPE: XR chest 1V portable DATE OF EXAM: 02/22/2022 CLINICAL HISTORY: PICC line placement. TECHNIQUE: Single AP portable semiupright view of the chest is obtained. COMPARISON: Chest x-ray from earlier today and older studies FINDINGS: There is new Right-sided PICC line terminating in SVC. Overlying sternal wires redemonstrated. Left atrial appendage clip redemonstrated. Suspected Cardiac septal closure device again seen. Persistent right greater than left bilateral lower lung opacities. Persistent cardiomegaly with mild central vascular congestion. Tiny right apical pneumothorax less well seen on current study. Osseous structures are intact. IMPRESSION: As above.
--- NOTE | 2022-02-22 11:46 | IR ---
PICC LINE PLACEMENT: HISTORY: Infection requiring long-term antibiotic therapy PROCEDURE: Ultrasound guidance of PICC line placement. METAL ANNEALER: COMPLICATIONS: None ANESTHESIA: 1. 1% Lidocaine locally. FINDINGS/TECHNIQUE: The procedure was explained to the patient. The risks, complications, benefits and alternatives were discussed and any questions were answered. Informed consent was obtained. The patient was placed supine on the fluoroscopic table and prepped and draped in the usual sterile fash ion. Utilizing a 21 gauge needle and sonographic guidance, access in the right brachial vein was ac hieved and there is placement of a 0.018 guidewire. The vein is patent. A 5-F. sheath was placed ov er the guidewire. The guidewire and dilator were removed and a 5-F. Double lumen PICC line was place d through the sheath with the chest x-ray confirming the tip at the level of the SVC. The sheath was removed, the catheter was flushed and sutured into position. The patient was stable throughout the procedure and remained stable upon discharge from the Department of Radiology. The vein puncture was patent under ultrasound. A tinsley scale image was obtained to document patency of the vein punctured. All elements of the maximal barrier technique were utilized. IMPRESSION: 1. Successful PICC line placement under ultrasound performed bedside within the ICU.
[2022-02-22 11:53] LABS: Glucose,Whole Blood 103 mg/dL (70-110)
--- NOTE | 2022-02-22 12:53 | P.PN ---
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 Past medical history significant for bacteremia with blood cultures from [facility] positive for Serratia marcescens, recent history of colitis and splenomegaly likely splenic infarct, anxiety, PTSD with history of self mutilation. POD #4 Aortic valve replacement with 23 mm On-X mechanical aortic valve, patch closure of aortotomy with involving pericardium, debridement of some annular infected tissue in aortic outflow tract, ligation of left atrial appendage with 35 mm AtriCure clip. Postoperative acute blood loss anemia and thrombocytopenia, expected given her preop anemia, hemodilution and cardiopulmonary bypass. The patient was seen and examined in follow-up today 02/22/2022 at her bedside in the intensive care unit. Currently she is sitting up to the bedside chair, is awake, alert, oriented 3 and is in no acute apparent distress. She denies any complaints of shortness of breath at this time all those complaining of some surgical type pain, rating her pain 3 out of 10 on the pain scale. Oxygen saturations are 98% on room air and she is achieving 1250 mL on her incentive spirometry with encouragement. She remained hemodynamically stable and is currently on no inotropic pressor support. Bedside telemetry showing normal sinus rhythm heart rate 98 BPM. Laboratory results show a WBC count of 5.6, hemoglobin 7.8, hematocrit 24.0, platelets 185, sodium 134, potassium 4.1, chloride 107, CO2 20, BUN 32, creatinine 0.93, glucose 112, calcium 7.3, AST 40, AST 21, PT 11.4, and INR 1.1. Yesterday her INR was 1.1 and she was given Coumadin 2 mg by mouth 1 yesterday. She reports she has been up ambulating in the intensive care unit hallway with standby assistance from nursing and therapy staff and tolerating well. Heart valve pathology remains pending. Preliminary Gram stain cultures on her heart valve showed no organism seen after 3 days and her anaerobic preliminary results remain pending showing no anaerobes isolated to date. She remains on cefepime 2 g IV piggyback every 8 hours for antibiotic coverage managed by infectious disease. Right and left pleural chest tubes were removed yesterday without incident. Objective - Vital Signs Vital signs: Vital Signs Temp 98.7 F 02/22/22 04:00 Pulse 90 02/22/22 06:00 Resp 31 H 02/22/22 06:00 BP 129/76 02/22/22 06:00 Pulse Ox 96 02/22/22 06:00 FiO2 35 02/22/22 04:00 Intake & Output 02/21/22 02/22/22 02/22/22 18:59 06:59 18:59 Intake Total 580 746 50 Output Total 1600 2850 Balance -1020 -2107 50 Weight 84.1 kg Intake: IV 260 146 Cefepime 2 gm In Sodium 100 Chloride 0.9% 100 ml @ 25 mls/hr IVPB Q8HR [facility] Rx# :[id number] Lactated Ringers 1,000 ml 200 40 @ 20 mls/hr IV .Q24H [facility] Rx#:[id number] NS Pressure Tubing 60 6 Oral 320 600 50 Output: Chest Tube Drainage 0 Chest Tube Left Pleural/ 0 Mediastinal Chest Tube Right Right 0 Pleural/Mediastinal Urine 1600 2850 Other: Voiding Method Bedside Commode Bedside Commode ABP, PAP, CO, CI - Last Documented Arterial Blood Pressure 137/59 Pulmonary Artery Pressure 26/8 Cardiac Output 6.5 Cardiac Index 3.5 - Exam CONSTITUTIONAL: Sitting up to the bedside chair in the intensive care unit, appears comfortable, cooperative, no apparent acute distress. HEENT: Neck is supple, no JVD, no lymphadenopathy. RESPIRATORY: Lungs sounds essentially clear throughout, diminished to his bilateral bases. Respirations are symmetrical and nonlabored. Currently oxygen saturations 95% on room air. Strong cough. Achieving 1000 mL on her incentive spirometry with much encouragement. CARDIOVASCULAR: Regular rhythm and rate. S1 and S2 present with mechanical valvular click, negative for S3, gallop or murmur. Sternum is stable. Palpable peripheral pulses bilaterally, no edema to her bilateral lower extremities. No calf pain or tenderness noted. Heart hugger in place and she is demonstrating appropriate use . Knee-high DAVI hose and sequential compression devices in place to her bilateral lower extremities. Bedside telemetry showing normal sinus rhythm heart rate 98 BPM. GASTROINTESTINAL: Abdomen soft, nontender, nondistended. Active bowel sounds present 4 quadrants. Tolerating diet. No guarding or rigidity. Passing flatus. Bowel movement this a.m. GENITOURINARY: Continues to void. Urine output 2025 mL in the last 8 hours. INTEGUMENTARY: Skin is warm and dry with no evidence of clubbing or cyanosis. Midline sternal incision clean dry and well approximated, covered with dry intact dressing. NEUROLOGIC: Cranial nerves II through XII intact. No focal deficits. MUSKULOSKELETAL: Able to move all extremities, strength equal bilaterally. PSYCHIATRIC: Alert and oriented to person place and time, appropriate affect, intact judgment and insight. - Allied health notes Allied health notes reviewed: nursing - Labs CBC & Chem 7: 02/22/22 06:25 02/22/22 06:25 Labs: Abnormal Lab Results - Last 24 Hours (Table) 02/16/22 02/21/22 02/21/22 Range/Units 15:30 11:34 17:43 RBC (3.80-5.40) m/uL Hgb (11.4-16.0) gm/dL Hct (34.0-46.0) % RDW (11.5-15.5) % Lymphocytes # (1.0-4.8) k/uL POC Glucose (mg/dL) 121 H 128 H (70-110) mg/dL Free Lambda LC, Quant 8.62 H (0.57-2.63) mg/dL 02/21/22 02/22/22 02/22/22 Range/Units 20:28 06:19 06:25 RBC 2.88 L (3.80-5.40) m/uL Hgb 7.8 L (11.4-16.0) gm/dL Hct 24.0 L (34.0-46.0) % RDW 19.0 H (11.5-15.5) % Lymphocytes # 0.5 L (1.0-4.8) k/uL POC Glucose (mg/dL) 150 H 122 H (70-110) mg/dL Free Lambda LC, Quant (0.57-2.63) mg/dL Microbiology - Last 24 Hours (Table) 02/18/22 12:01 Gram Stain - Preliminary Heart Valve Tissue Culture - Preliminary - Imaging and Cardiology Chest x-ray: report reviewed, image reviewed Assessment and Plan Assessment: 1. 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 Serratia bacteremia, sepsis on cefepime 2 g IV piggyback every 8 hours managed by infectious disease, blood cultures from 02/11/2022 showed no growth after 144 hours, aortic valve Gram stain cultures show no growth after 3 days, anaerobic culture results remain pending showing no anaerobes seen to date 3. Acute hypoxic respiratory failure requiring mechanical ventilation 4. Altered mental status this admission, resolved 5. Acute on chronic anemia, status post blood transfusion hemoglobin 8.3 today 02/20/2022 6. Acute kidney injury, BUN 32 and creatinine 0.93 today 7. Recent history of colitis and splenomegaly likely splenic infarct, status post colonoscopy which showed normal appearing colon from the rectum to the cecum with no evidence of colitis or colorectal aplasia 8. History of anxiety 9. PTSD with history of self mutilation 10. Chronic dental abscess tooth #15, status post surgical extraction of tooth 11. Postoperative acute blood loss anemia, an expected outcome given her preoperative anemia, hemodilution and cardiopulmonary bypass 12. Suspected IV drug abuse per patient's father Plan: 1. Continue to maximize medical therapy with low-dose aspirin, statin, and beta bryan. Will increase metoprolol tartrate 75 mg by mouth twice a day. 2. Encourage incentive spirometry use 10 times every hour while awake. Bronchodilators per pulmonology/critical care medicine. 3. Increase activity, ambulate as tolerated. PT/OT/cardiac rehab following. 4. Will monitor daily labs and chest x-rays. Electrolyte replacement per protocol. 5. Pain control with current medication regimen. Avoid nephrotoxic agents. 6. GI and DVT prophylaxis. Heparin subcu has been discontinued and the patient has been placed on Lovenox 40 mg subcu daily 7. Coumadin 2.5 mg by mouth today. The patient was given a dose of Coumadin 2 mg by mouth 1 yesterday for an INR of 1.1. Goal INR for first 3 months 2.0-3.0, after 3 months goal INR 1.5-2. Daily PT and INR. PT is 11.3 and INR is 1.1 today. 8. Insulin management per primary care service. Patient is a nondiabetic with a preoperative hemoglobin A1c 5.9%. 9. Continue to record strict accurate intake and output. Daily weights 10. Lasix 40 mg IV BID at 9 AM and 4 PM, continue Potassium chloride 10 mEq by mouth twice a day until Lasix is discontinued. 11. Continue cefepime 2 g IV piggyback every 8 hours managed by infectious disease. Continue to follow aortic valve cultures. Pathology results for aortic valve remain pending.interventional radiology has been consulted for PICC line placement for long-term antibiotic treatment on an outpatient basis. 12. Transfer orders were placed to third floor cardiac stepdown unit. Discharge planning is in place. 13. first postoperative day shower today, then shower daily. 14. More recommendations to follow based on patient's clinical course. Time with Patient: Greater than 30
[2022-02-22] MEDS: ENOXAPARIN 40 MG/0.4 ML SYRINGE SQ SCH (13:12)
[2022-02-22 16:14] LABS: Glucose,Whole Blood 144 mg/dL (70-110)
[2022-02-22] MEDS: FUROSEMIDE 10 MG/ML 4 ML VIAL IV SCH (16:48)
[2022-02-22 17:34] LABS: Albumin 2.26 g/dL (3.80-4.90); Gamma Globulin 1.67 g/dL (0.70-1.50)
[2022-02-22] MEDS ORDERED: WARFARIN 2.5 MG TAB PO ONE (18:00)
[2022-02-22] MEDS ORDERED: LOPERAMIDE 2 MG CAP PO ONE (19:35)
[2022-02-22 20:00] LABS: Glucose,Whole Blood 151 mg/dL (70-110)
[2022-02-22 20:27] LABS: Magnesium 1.7 mg/dL (1.6-2.3); Phosphorus 2.9 mg/dL (2.5-4.5); Potassium 4.1 mmol/L (3.5-5.1)
--- NOTE | 2022-02-22 22:20 | P.PN ---
Subjective This is a pleasant 56 years old female with past medical history of anxiety, PTSD, presents with altered mental status. She is a patient of Dr. Vizcarra. Patient was admitted in the ICU from the emergency room, patient could not provide information which were obtained from medical records and staff. per ems pt was recently at [facility] for a blood infection. pt's last known well was last night at 10:30pm. pt found by family this evening altered. Patient was intubated in the emergency room Patient had a fever of 103 on admission, she is tachypneic 29-31, blood pressure 107/53 Labs reviewed on admission, WBC 8.7, low hemoglobin 6.9, low platelet 120, with thrombocytopenia which is mild ESR is elevated at 90, CRP elevated 8.9 PH normal 7.4, pCO2 normal at 37 INR 1.2 Sodium 132, potassium 3.2, creatinine 1.0. Liver enzymes are normal as well as bilirubin. Troponin is elevated at 0.37. ProBNP is elevated to 38,000 Urinalysis showing 3+ protein, large blood, RBC 127, WBC 27. Urine test is negative. Urine drug screen is positive for opioids EKG showing sinus tachycardia at [address]-T changes Chest x-ray: Acute pulmonary edema Computed tomography scan of the head and neck: Normal cervical spine with no fracture and normal CT of the brain by radiologist In the emergency room she received IV fluids with normal saline, vancomycin and ceftriaxone and ibuprofen and IV Tylenol, Dilaudid and lorazepam and succi nylcholine 02/10/2022 Patient is a pleasant 36 years old female was admitted with AMS and acute pul monary edema, she got intubated on admission and entered closely in the ICU with pulmonary/critical care team. Echocardiogram showed evidence of regurgitation on the aortic valve, which is confirmatory with WADE showed severe aortic regurgitation. Patient's risk factors with subacute bacterial endocarditis with sepsis secondary with Serratia marcescens and blood culture, a patient currently kept o n antibiotics with cefepime. IV vancomycin discontinued. She is also gentle hydration Today several consultants were on the case including pulmonary, cardiology, cardiothoracic surgery infectious disease with recommendation to transfer patient to tertiary care center I discussed the case with MICU fellow at [facility] in [place] Dr. Valladares and I discussed the case with her and she currently accepted the patient depending bed availability. 02/11/2022 Patient remains critically ill in the intensive care unit, she still intubated and on mechanical ventilation. Pulmonary/critical care to follow closely and help with vent management. She remains on broad-spectrum antibiotics of cefepime for positive blood culture with Serratia for her endocarditis I discussed the case with her report MICU team yesterday and they Accepted the patient, pending bed availability. Patient is followed closely by several consultants including cardiology, cardiothoracic and surgery teams as well as infectious disease. And WADE are noted. 02/12/2022 Patient got extubated and currently her respiratory status is stable and at baseline or close to baseline she is not tachypneic or hypoxic. This morning she was still tired and very sleepy and she could not provide information however she started waking up throughout the day and she is alert awake and oriented. Repeat chest x-ray showing clearance of pulmonary edema but there is development of right lower lobe infiltrate. Rest of vitals and labs are stable. She has low-grade temperature of 99.8 today. She is currently on cefepime. I discussed the case again with [facility] at her report, they informed me her transfer was canceled because [facility] has reached its full capacity. On reviewing this with the staff patient may not needed to be transferred and her aortic valve regurgitation be managed in this facility. However we will follow up with pulmonary/critical care team and surgery teams. 02/13/2022 Patient today is fully awake and oriented, she looks a pleasant and calm, she denies any specific symptoms to me. She looks mildly tired and lethargic. However her mentation is normal. She denies chest pain or dyspnea. No abdominal pain or vomiting or diarrhea. No urinary complaints. No headache or weakness or numbness. No dizziness. She is hemodynamically stable. Labs look stable. She's continued on IV cefepime. Repeat blood culture is negative. Cardiothoracic surgery team recommended aortic valve repair during this admission and colonoscopy to be done prior to the procedure however a decline in the procedure We will follow up with the consult recommendation 02/14/2022 Patient today awake and alert, she did not complain of from any specific complaint to me, she has insight into [facility] and she has several questions ANSWERED to her satisfaction, most of them were around colonoscopy and I'll exp pamela to her extensively. It looks like later on patient evaluated by GI team for clearance prior to expected cardiothoracic surgery to replace the aortic valve. And per GI team patient is going for colonoscopy tomorrow morning. Patient denies chest pain or dyspnea. No abdominal pain with she still have some diarrhea. Other than that she remains on cefepime as per ID team. vitals are reviewed s table. 02/15/2022 Patient remains in the ICU, fully awake and oriented, calm and not in distress. Vitals and labs look stable. Reviewed in details Abdomen discussion with the patient looks like she is agreeable to colonoscopy. Also she told me about the need to take her to without and that she is thinking about it and that she is going to discussed with the surgeon. Cardiothoracic surgery team on the case and the planned for aortic valve replacement given the damage caused by endocarditis. Repeat blood culture are negative so far. The patient remains on IV cefepime per ID team Colonoscopy results show normal colon per report 02/16/2022 Patient removed to the select unit, currently she is awake alert looks comfortable and pleasant and she is at room air, denies any specific symptoms, no chest pain, no abdominal pain, no dyspnea. No headache or weakness or numbness. And vitals are stable. She was happy that her tooth was extracted and she was put to sleep so she could not feel it. Patient kept now on IV antibiotic with cefepime and the recommendation of ID team, she will need a prolonged course of IV antibiotics. Cardiothoracic surgery team are planning for aortic valve replacement, with further workup is in progress I'm resume the care of the patient today 02/20/2022 Patient is status post aortic valve replacement with mechanical aortic valve on 02/18. Today postop day #2. He is been marked closely in the ICU. She is awake and alert, she is complaining from some discomfort at the surgery site. Blood pressure is borderline and she is mildly tachypneic, tachycardic. Hemoglobin 8.3, creatinine 1.19. She is currently Kept on cefepime also IV Lasix added by cardiothoracic surgery team on the dose of 20 mg twice a day. 02/21/2022 Patient is Zhou today from pain and discomfort at chest tube 2. With surgery team on the case and plan to remove these tubes today. Other than that she is awake and alert denies any other new complaints. Hemoglobin 8.3, creatinine 1.12. She remains on cefepime and IV Lasix Chest x-ray showing persistent cardiomegaly and pulmonary vascular congestion with bilateral basal infiltrates. Surgery team are planning to start her on Coumadin today, and continue with aspirin 81 and DC Plavix per the recommendation. Goal INR is 2-3 02/22/2022 A feels better and more comfortable especially after chest tube were taken out No other new complaints Vitals and labs look stable Remains on cefepime. IV Lasix increased today to 40 mg twice daily, metoprolol added, continued on aspirin 81 mg Heparin changed to Lovenox for DVT prophylaxis Looks like patient is going to be cleared to be transferred to the general medical floor Objective - Vital Signs Vital signs: Vital Signs Temp 98.2 F 02/22/22 12:00 Pulse 92 02/22/22 14:00 Resp 20 02/22/22 14:00 BP 128/72 02/22/22 14:00 Pulse Ox 96 02/22/22 14:00 FiO2 35 02/22/22 04:00 Intake & Output 02/21/22 02/22/22 02/22/22 18:59 06:59 18:59 Intake Total 580 746 400 Output Total 1600 2850 1000 Balance -1025 -2104 -600 Weight 84.1 kg Intake: IV 260 146 Cefepime 2 gm In Sodium 100 Chloride 0.9% 100 ml @ 25 mls/hr IVPB Q8HR [facility] Rx# :[id number] Lactated Ringers 1,000 ml 200 40 @ 20 mls/hr IV .Q24H [facility] Rx#:[id number] NS Pressure Tubing 60 6 Oral 320 600 400 Output: Chest Tube Drainage 0 Chest Tube Left Pleural/ 0 Mediastinal Chest Tube Right Right 0 Pleural/Mediastinal Urine 1600 2850 1000 Other: Voiding Method Bedside Commode Bedside Commode Bedside Commode # Bowel Movements 1 ABP, PAP, CO, CI - Last Documented Arterial Blood Pressure 137/59 Pulmonary Artery Pressure 26/8 Cardiac Output 6.5 Cardiac Index 3.5 - Exam -GENERAL: The patient is awake and alert but tired HEENT: Pupils are round and equally reacting to light. EOMI. No scleral icterus. No conjunctival pallor. Normocephalic, atraumatic. No pharyngeal erythema. No thyromegaly. CARDIOVASCULAR: S1 and S2 present. no murmurs, rubs, or gallops. -PULMONARY: Chest is clear to auscultation, no wheezing or crackles. Surgical wound, and a dressing. Rest of exam was deferred surgery team ABDOMEN: Soft, nontender, nondistended, normoactive bowel sounds. No palpable organomegaly. MUSCULOSKELETAL: No joint swelling or deformity. EXTREMITIES: No cyanosis, clubbing, or pedal edema. NEUROLOGICAL: Gross neurological examination did not reveal any focal deficits. SKIN: No rashes. no petechiae. - Labs CBC & Chem 7: 02/22/22 06:25 02/22/22 20:07 Labs: Abnormal Lab Results - Last 24 Hours (Table) 02/21/22 02/21/22 02/22/22 Range/Units 17:43 20:28 06:19 RBC (3.80-5.40) m/uL Hgb (11.4-16.0) gm/dL Hct (34.0-46.0) % RDW (11.5-15.5) % Lymphocytes # (1.0-4.8) k/uL Sodium (137-145) mmol/L Carbon Dioxide (22-30) mmol/L BUN (7-17) mg/dL Glucose (74-99) mg/dL POC Glucose (mg/dL) 128 H 150 H 122 H (70-110) mg/dL Calcium (8.4-10.2) mg/dL AST (14-36) U/L Total Protein (6.3-8.2) g/dL Albumin (3.5-5.0) g/dL 02/22/22 02/22/22 Range/Units 06:25 06:25 RBC 2.88 L (3.80-5.40) m/uL Hgb 7.8 L (11.4-16.0) gm/dL Hct 24.0 L (34.0-46.0) % RDW 19.0 H (11.5-15.5) % Lymphocytes # 0.5 L (1.0-4.8) k/uL Sodium 134 L (137-145) mmol/L Carbon Dioxide 20 L (22-30) mmol/L BUN 32 H (7-17) mg/dL Glucose 112 H (74-99) mg/dL POC Glucose (mg/dL) (70-110) mg/dL Calcium 7.3 L (8.4-10.2) mg/dL AST 40 H (14-36) U/L Total Protein 5.3 L (6.3-8.2) g/dL Albumin 2.3 L (3.5-5.0) g/dL Microbiology - Last 24 Hours (Table) 02/18/22 12:01 Anaerobic Culture - Final Heart Valve 02/18/22 12:01 Gram Stain - Final Heart Valve Tissue Culture - Final Assessment and Plan Assessment: Subacute bacterial endocarditis Severe aortic regurgitation secondary to above, status post aortic valve replacement with mechanical valve on 02/18 Sepsis with fever and tachypnea, resolved Acute hypoxic respiratory failure requiring intubation and mechanical ventilation, she got extubated and currently on nasal cannula Metabolic encephalopathy Acute pulmonary edema, could be acute CHF versus RDS Severe anemia, microcytic hyperchromic requiring blood transfusion 4 Elevated troponin Plan: This is a pleasant 56 years old female who presents with AMS, on mechanical ventilation, anemia Continue with antibiotics as per ID team, currently on cefepime Keep follow-up and repeat blood culture, negative so far Cardiothoracic surgery team of the case, patient is a status post aortic valve replacement. Patient is started with coumadine. Also on aspirin 81 mg Several consultants on the case including infectious disease, pulmonary/critical care, cardiology, cardiothoracic surgery labs and medication were reviewed.. Continue same treatment. Continue with symptomatic treatment. Resume home medication. Monitor lytes and vitals. DVT and GI prophylaxis. Further recommendations as per clinical course of the patient DVT prophylaxis: asparin and common GI Prophylaxis: Ppi Prognosis is guarded
[2022-02-22] MEDS: MAGNESIUM SULFATE-D5W PMX 1 GM in DEXTROSE/WATER 1 100ML.BAG IVPB SCH ×2 (22:59→23:58)
[2022-02-23] MEDS: ACETAMINOPHEN TAB 325 MG TAB PO PRN ×6 (00:01→21:50)
[2022-02-23 06:53] LABS: Anisocytosis Slight; HCT 24.6 % (34.0-46.0); Hypochromasia Moderate; MCH 27.3 pg (25.0-35.0); MCHC 32.6 g/dL (31.0-37.0); MCV 83.6 fL (80.0-100.0); Mean Platelet Volume 8.1; Microcytosis Slight; Platelet Count 199 k/uL (150-450); Poikilocytosis Slight; RBC 2.94 m/uL (3.80-5.40); RDW 19.3 % (11.5-15.5)
[2022-02-23 07:01] LABS: Prothrombin Time 11.2 sec (9.0-12.0)
[2022-02-23 07:09] LABS: ALT 25 U/L (4-34); AST 40 U/L (14-36); African American GFR (CKD) >90 (>60 ml/min/1.73 sqM); Albumin 2.5 g/dL (3.5-5.0); Alkaline Phosphatase 119 U/L (38-126); Anion Gap 7 mmol/L; Blood Urea Nitrogen 26 mg/dL (7-17); Calcium 7.6 mg/dL (8.4-10.2); Carbon Dioxide 21 mmol/L (22-30); Chloride 109 mmol/L (98-107); Glucose 108 mg/dL (74-99); Magnesium 2.2 mg/dL (1.6-2.3); Non-African American GFR(CKD) >90 (>60 ml/min/1.73 sqM); Potassium 4.5 mmol/L (3.5-5.1); Sodium 137 mmol/L (137-145); Total Bilirubin 0.4 mg/dL (0.2-1.3); Total Protein 5.8 g/dL (6.3-8.2)
[2022-02-23] MEDS: INSULIN ASPART (NovoLOG) 100 UNIT/ML VIAL SQ SCH ×4 (07:36→20:33)
[2022-02-23] MEDS: PANTOPRAZOLE 40 MG TABLET PO SCH (07:36)
--- NOTE | 2022-02-23 08:06 | XR ---
EXAMINATION TYPE: XR chest 2V DATE OF EXAM: 02/23/2022 7:59 AM COMPARISON: Chest radiographs from 02/22/2022 TECHNIQUE: XR chest 2V Frontal and lateral views of the chest. CLINICAL INDICATION:Female, 36 years old with history of Postoperative aortic valve replacement; FINDINGS: Lungs/Pleura: Small bilateral pleural effusions. No focal consolidation. No sizable pneumothorax. Pulmonary vascularity: Mild pulmonary vascular congestion. Heart/mediastinum: Cardiomediastinal silhouette is unremarkable. Post surgical changes from aortic v alve replacement and left atrial appendage clip. Musculoskeletal: No acute osseous pathology. Midline sternotomy wires are noted and stable. Lines/Tubes:Right-sided PICC line with distal tip at the mid SVC. IMPRESSION: 1. Small bilateral pleural effusions with mild pulmonary vascular congestion. 2. Right sided PICC line is in stable position. 3. Postsurgical changes from aortic valve replacement.
[2022-02-23] MEDS: IPRATROPIUM-ALBUTEROL 3 ML NEB INHALATION SCH (08:16)
[2022-02-23] MEDS: CEFEPIME 2 GM in SODIUM CHLORIDE 0.9% 100 ML IVPB SCH ×2 (08:30→16:30)
[2022-02-23] MEDS ORDERED: CALCIUM GLUCONATE IN NACL 1 GM in SALINE 1 100ML.BAG IVPB ONE (08:30)
[2022-02-23] MEDS: ASPIRIN 81 MG PO SCH (08:48)
[2022-02-23] MEDS: ATORVASTATIN 40 MG TAB PO SCH (08:48)
[2022-02-23] MEDS: ASCORBIC ACID 500 MG TAB PO SCH ×2 (08:49→20:38)
[2022-02-23] MEDS: FUROSEMIDE 10 MG/ML 4 ML VIAL IV SCH ×2 (08:50→16:30)
[2022-02-23] MEDS: ENOXAPARIN 40 MG/0.4 ML SYRINGE SQ SCH (08:50)
[2022-02-23] MEDS: METOPROLOL TARTRATE 25 MG TAB PO SCH ×2 (08:50→20:38)
[2022-02-23] MEDS: POTASSIUM CHLORIDE ER 10 MEQ TAB.ER.PRT PO SCH (08:50)
--- NOTE | 2022-02-23 09:03 | P.PN ---
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 Past medical history significant for bacteremia with blood cultures from [facility] positive for Serratia marcescens, recent history of colitis and splenomegaly likely splenic infarct, anxiety, PTSD with history of self mutilation. POD #5 Aortic valve replacement with 23 mm On-X mechanical aortic valve, patch closure of aortotomy with involving pericardium, debridement of some annular infected tissue in aortic outflow tract, ligation of left atrial appendage with 35 mm AtriCure clip. Postoperative acute blood loss anemia and thrombocytopenia, expected given her preop anemia, hemodilution and cardiopulmonary bypass. The patient was seen and examined in follow-up today 02/23/2022 at her bedside in the intensive care unit. Currently she denies any complaints of pain, or shortness of breath although she is complaining of frequent episodes of diarrhea. She is sitting up to the bedside chair, is awake, alert, oriented 3 and is in no acute distress. Oxygen saturation are 96% on room air and she is achieving 1500 mL on her incentive spirometry with much encouragement. Bedside telemetry is showing normal sinus rhythm heart rate 82 BPM. A PICC line was inserted yesterday by interventional radiology for outpatient IV antibiotic therapy due to her preoperative diagnosis of Serratia marcescens and endocarditis. She is currently on cefepime 2 g IV piggyback every 8 hours managed by infectious disease. Final Gram stain heart valve tissue showed no g rowth seen after 4 days and her anaerobic culture also showed no anaerobes isolated. Heart valve pathology remains pending. Laboratory results morning show a WBC count of 5.0, hemoglobin 8.0, hematocrit 24.6, platelets 199, sodium 137, potassium 4.5, chloride 109, CO2 21, BUN 26, creatinine 0.78, glucose 108, calcium 7.6, magnesium 2.2, AST 40 and ALT 25. PT 11.2 and INR 1.0 today, she was given Coumadin 2 mg by mouth 1 yesterday for an INR of 1.1. She's been up inflating in the intensive care unit hallway with standby assistance from nursing and therapy staff, ambulate in the hallway 4 yesterday. She is awaiting a bed on the cardiac stepdown unit. Objective - Vital Signs Vital signs: Vital Signs Temp 98.1 F 02/23/22 04:00 Pulse 82 02/23/22 08:16 Resp 24 02/23/22 06:00 BP 129/82 02/23/22 06:00 Pulse Ox 95 02/23/22 06:00 FiO2 35 02/22/22 04:00 Intake & Output 02/22/22 02/23/22 02/23/22 18:59 06:59 18:59 Intake Total 720 820 10 Output Total 1600 1500 Balance -880 -680 10 Intake: IV 180 10 Cefepime 2 gm In Sodium 100 Chloride 0.9% 100 ml @ 25 mls/hr IVPB Q8HR [facility] Rx# :[id number] Lactated Ringers 1,000 ml 80 10 @ 20 mls/hr IV .Q24H [facility] Rx#:[id number] Oral 720 640 Output: Urine 1600 1500 Other: Voiding Method Bedside Commode Bedside Commode # Bowel Movements 1 1 ABP, PAP, CO, CI - Last Documented Arterial Blood Pressure 137/59 Pulmonary Artery Pressure 26/8 Cardiac Output 6.5 Cardiac Index 3.5 - Exam CONSTITUTIONAL: Sitting up to the bedside chair in the intensive care unit, appears comfortable, cooperative, no apparent acute distress. HEENT: Neck is supple, no JVD, no lymphadenopathy. RESPIRATORY: Lungs sounds essentially clear throughout, diminished to his bilateral bases. Respirations are symmetrical and nonlabored. Currently oxygen saturations 96% on room air. Strong cough. Achieving 1500 mL on her incentive spirometry with much encouragement. CARDIOVASCULAR: Regular rhythm and rate. S1 and S2 present with mechanical valvular click, negative for S3, gallop or murmur. Sternum is stable. Palpable peripheral pulses bilaterally, trace edema to her bilateral lower extremities. No calf pain or tenderness noted. Heart hugger in place and she is demonstrating appropriate use . Knee-high DAVI hose and sequential compression devices in place to her bilateral lower extremities. Bedside telemetry showing normal sinus rhythm heart rate 82 BPM. GASTROINTESTINAL: Abdomen soft, nontender, nondistended. Active bowel sounds present 4 quadrants. Tolerating diet. No guarding or rigidity. Passing flatus. Episodes of diarrhea GENITOURINARY: Continues to void. Urine output 1500 mL in the last 8 hours. INTEGUMENTARY: Skin is warm and dry with no evidence of clubbing or cyanosis. Midline sternal incision clean dry and well approximated, covered with dry intact dressing. NEUROLOGIC: Cranial nerves II through XII intact. No focal deficits. MUSKULOSKELETAL: Able to move all extremities, strength equal bilaterally. PSYCHIATRIC: Alert and oriented to person place and time, appropriate affect, intact judgment and insight. - Allied health notes Allied health notes reviewed: nursing - Labs CBC & Chem 7: 02/23/22 06:17 02/23/22 06:17 Labs: Abnormal Lab Results - Last 24 Hours (Table) 02/16/22 02/22/22 02/22/22 Range/Units 15:30 16:13 19:59 RBC (3.80-5.40) m/uL Hgb (11.4-16.0) gm/dL Hct (34.0-46.0) % RDW (11.5-15.5) % Sodium (137-145) mmol/L Chloride (98-107) mmol/L Carbon Dioxide (22-30) mmol/L BUN (7-17) mg/dL Glucose (74-99) mg/dL POC Glucose (mg/dL) 144 H 151 H (70-110) mg/dL Calcium (8.4-10.2) mg/dL AST (14-36) U/L Total Protein (6.3-8.2) g/dL Albumin (3.5-5.0) g/dL Albumin (PEP) 2.26 L (3.80-4.90) g/dL Fccmc-6-Edqlxtgyx 0.70 H (0.10-0.40) g/dL Beta Globulins 0.57 L (0.60-1.30) g/dL Gamma Globulins 1.67 H (0.70-1.50) g/dL 02/22/22 02/23/22 02/23/22 Range/Units 20:07 06:17 06:17 RBC 2.94 L (3.80-5.40) m/uL Hgb 8.0 L (11.4-16.0) gm/dL Hct 24.6 L (34.0-46.0) % RDW 19.3 H (11.5-15.5) % Sodium 135 L (137-145) mmol/L Chloride 109 H (98-107) mmol/L Carbon Dioxide 21 L 21 L (22-30) mmol/L BUN 26 H (7-17) mg/dL Glucose 108 H (74-99) mg/dL POC Glucose (mg/dL) (70-110) mg/dL Calcium 7.6 L (8.4-10.2) mg/dL AST 40 H (14-36) U/L Total Protein 5.8 L (6.3-8.2) g/dL Albumin 2.5 L (3.5-5.0) g/dL Albumin (PEP) (3.80-4.90) g/dL Ljfex-7-Autcahemk (0.10-0.40) g/dL Beta Globulins (0.60-1.30) g/dL Gamma Globulins (0.70-1.50) g/dL Microbiology - Last 24 Hours (Table) 02/18/22 12:01 Anaerobic Culture - Final Heart Valve 02/18/22 12:01 Gram Stain - Final Heart Valve Tissue Culture - Final - Imaging and Cardiology Chest x-ray: report reviewed, image reviewed Assessment and Plan Assessment: 1. 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 Serratia bacteremia, sepsis on cefepime 2 g IV piggyback every 8 hours managed by infectious disease, blood cultures from 02/11/2022 showed no growth after 144 hours, aortic valve Gram stain cultures show no growth after 3 days, anaerobic culture results remain pending showing no anaerobes seen to date 3. Acute hypoxic respiratory failure requiring mechanical ventilation 4. Altered mental status this admission, resolved 5. Acute on chronic anemia, status post blood transfusion hemoglobin 8.3 today 02/20/2022 6. Acute kidney injury, BUN 32 and creatinine 0.93 today 7. Recent history of colitis and splenomegaly likely splenic infarct, status post colonoscopy which showed normal appearing colon from the rectum to the cecum with no evidence of colitis or colorectal aplasia 8. History of anxiety 9. PTSD with history of self mutilation 10. Chronic dental abscess tooth #15, status post surgical extraction of tooth 11. Postoperative acute blood loss anemia, an expected outcome given her preoperative anemia, hemodilution and cardiopulmonary bypass 12. Suspected IV drug abuse per patient's father 13. Diarrhea, expected given her history of preoperative and history of preoperative colitis Plan: 1. Continue to maximize medical therapy with low-dose aspirin, statin, and beta bryan. Will increase metoprolol tartrate as tolerated. 2. Encourage incentive spirometry use 10 times every hour while awake. Bronchodilators per pulmonology/critical care medicine. 3. Increase activity, ambulate as tolerated. PT/OT/cardiac rehab following. 4. Will monitor daily labs and chest x-rays. Electrolyte replacement per protocol. 5. Pain control with current medication regimen. Avoid nephrotoxic agents. 6. GI and DVT prophylaxis. Continue Lovenox 40 mg subcu daily 7. Coumadin 5 mg by mouth today. The patient was given a dose of Coumadin 2.5 mg by mouth 1 yesterday for an INR of 1.1. Goal INR for first 3 months 2.0-3.0, after 3 months goal INR 1.5-2. Daily PT and INR. PT is 11.2 and INR is 1.0 today. 8. Insulin management per primary care service. Patient is a nondiabetic with a preoperative hemoglobin A1c 5.9%. 9. Continue to record strict accurate intake and output. Daily weights 10. Continue Lasix 40 mg IV BID at 9 AM and 4 PM, continue Potassium chloride 10 mEq by mouth twice a day until Lasix is discontinued. 11. Continue cefepime 2 g IV piggyback every 8 hours managed by infectious disease. Aortic valve cultures negative. Pathology results for aortic valve remain pending. Interventional radiology placed a PICC line yesterday for long- term antibiotic treatment on an outpatient basis. 12. Transfer to the cardiac stepdown unit when bed available. Discharge planning is in place. 13. Shower daily. 14. Send stool for C. diff. 15. More recommendations to follow based on patient's clinical course. Time with Patient: Greater than 30
--- NOTE | 2022-02-23 09:58 | P.PN ---
Subjective Progress Note Date: 02/23/22 Principal diagnosis: [place] valve endocarditis. On 02/20/2022 patient seen in follow-up in intensive care unit, she is postoperative day #2, status post aortic valve replacement, with the mechanical aortic valve, patch closure of the aortotomy with involving pericardium, and de bridement of some annular infected tissue as well as left atrial appendage ligation. Patient is awake and alert, she was successfully weaned and extubated from the mechanical ventilator yesterday on 02/19/2022. She is breathing comfortably, room air pulse ox is 94-96%, she is afebrile, hemodynamically she is stable, she is on lactated Ringer's at a rate of 20 ML per hour, and antibiotics with cefepime, no vasopressor support. Yesterday she had another right-sided chest tube placed by CT surgery team. Currently has [address], one mediastinal, 1 left pleural/mediastinal, 1 right pleural, and one right pleural mediastinal chest tubes, no air leak noted. Still draining serosanguineous output, with at least output from the mediastinal chest tube. Today's chest x-ray showing postsurgical changes and streaky atelectasis in the right mid and lower lung. Patient is only achieving 300 mL on the incentive spirometer, she is having significant postsurgical pain. She is receiving pain medications. Patient has been up out of bed in the chair, tolerated activity fairly well. Urinary catheter is in place, patient is producing urine in the order of 20-30 ML per hour. She has been started on diuretics by CT surgery. Today's labs have been reviewed, white blood cell count is 8.4, hemoglobin is 8.3, platelet count is 152, sodium is 135, potassium is 4.5, chloride is 109, C O2 is 18, BUN is 30 creatinine is 1.11. Progress note dated 02/21/2022. This is a 36-year-old female who is postoperative day #3, status post aortic valve replacement with a mechanical aortic valve, as well as left atrial appendage ligation. The patient is currently on room air. The patient is g etting lactated Ringer's at 20 mL an hour. She's had a uneventful night according to the nurses. Labs today include a white count 6.8, hemoglobin 8.3, hematocrit 26, and platelet count 273,000. Sodium 132, potassium 4.4, chlorides 105, CO2 19, anion gap 8, BUN 35, and creatinine 1.12. Albumin is 2.3. Previous blood cultures from February 09 were positive for Serratia marcescens. Chest x- ray shows some cardiomegaly, with mild vascular congestion. Progress note dated 02/22/2022. 36-year-old female postop day #4, status post aortic valve replacement with a mechanical aortic valve, as well as left atrial appendage ligation, for [place] valve endocarditis, secondary to Serratia. Currently, the patient's doing well. She seen today in room 267. She is on room air. No IV fluids. She was a ctually walking the hallway when I saw her. She had no complaints, anion uneventful night. White count 5.6, hemoglobin 7.8, hematocrit 24, and platelet count 185,000. PT 11.4, INR 1.1. Recent blood cultures, are negative. Previous blood cultures from February 09 showed Serratia marcescens. Chest x-ray shows some cardiomegaly, mild fluid overload, and some bilateral infiltrates. Progress note dated 02/23/2022. Postop day #5, status post aortic valve replacement with mechanical aortic valve, and this 36-year-old female, who had [place] valve endocarditis, secondary to Serratia. The patient also had ligation of her left atrial appendage. Currently, she is on room air. She's not requiring any IV fluids. She is an overflow patient in the intensive care unit. She's doing very well. She's been walking up and down the unit, without difficulty. Recent blood cultures are currently negative. White count 5, hemoglobin 8, hematocrit 24.6, and platelet count 199,000. Sodium 137, potassium 4.5, chlorides 109, CO2 21, BUN 26, creatinine 0.78. Chest x-ray shows some postsurgical changes only. Objective - Vital Signs Vital signs: Vital Signs Temp 98.1 F 02/23/22 08:00 Pulse 83 02/23/22 08:33 Resp 30 H 02/23/22 07:00 BP 129/82 02/23/22 07:00 Pulse Ox 95 02/23/22 06:00 FiO2 35 02/22/22 04:00 Intake & Output 02/22/22 02/23/22 02/23/22 18:59 06:59 18:59 Intake Total 720 820 10 Output Total 1600 1500 Balance -880 -680 10 Weight 79.5 kg 79.5 kg Intake: IV 180 10 Cefepime 2 gm In Sodium 100 Chloride 0.9% 100 ml @ 25 mls/hr IVPB Q8HR [facility] Rx# :[id number] Lactated Ringers 1,000 ml 80 10 @ 20 mls/hr IV .Q24H [facility] Rx#:[id number] Oral 720 640 Output: Urine 1600 1500 Other: Voiding Method Bedside Commode Bedside Commode # Bowel Movements 1 1 ABP, PAP, CO, CI - Last Documented Arterial Blood Pressure 137/59 Pulmonary Artery Pressure 26/8 Cardiac Output 6.5 Cardiac Index 3.5 - Exam No acute distress, oriented 3. Currently on room air. HEENT examination is grossly unremarkable. Neck supple. Full range of motion. No adenopathy thyromegaly or neck vein distention. Cardiovascular examination reveals regular rhythm rate. S1-S2 normal. No S3 or S4. No discernible murmur noted. Heart rate 83 bpm. Lungs reveal mostly clear breath sounds. Minimal scattered rhonchi. No wheezes or crackles. Breath sounds are equal bilaterally. Room air saturation is 98 %. Abdomen soft bowel sounds are heard. No masses or tenderness. Extremities are intact. No cyanosis clubbing or edema. Skin is without rash or lesion. Neurologic examination is brief but nonfocal. - Labs CBC & Chem 7: 02/23/22 06:17 02/23/22 06:17 Labs: Abnormal Lab Results - Last 24 Hours (Table) 02/16/22 02/22/22 02/22/22 Range/Units 15:30 16:13 19:59 RBC (3.80-5.40) m/uL Hgb (11.4-16.0) gm/dL Hct (34.0-46.0) % RDW (11.5-15.5) % Sodium (137-145) mmol/L Chloride (98-107) mmol/L Carbon Dioxide (22-30) mmol/L BUN (7-17) mg/dL Glucose (74-99) mg/dL POC Glucose (mg/dL) 144 H 151 H (70-110) mg/dL Calcium (8.4-10.2) mg/dL AST (14-36) U/L Total Protein (6.3-8.2) g/dL Albumin (3.5-5.0) g/dL Albumin (PEP) 2.26 L (3.80-4.90) g/dL Snlmv-2-Pwgfrxsyb 0.70 H (0.10-0.40) g/dL Beta Globulins 0.57 L (0.60-1.30) g/dL Gamma Globulins 1.67 H (0.70-1.50) g/dL 02/22/22 02/23/22 02/23/22 Range/Units 20:07 06:17 06:17 RBC 2.94 L (3.80-5.40) m/uL Hgb 8.0 L (11.4-16.0) gm/dL Hct 24.6 L (34.0-46.0) % RDW 19.3 H (11.5-15.5) % Sodium 135 L (137-145) mmol/L Chloride 109 H (98-107) mmol/L Carbon Dioxide 21 L 21 L (22-30) mmol/L BUN 26 H (7-17) mg/dL Glucose 108 H (74-99) mg/dL POC Glucose (mg/dL) (70-110) mg/dL Calcium 7.6 L (8.4-10.2) mg/dL AST 40 H (14-36) U/L Total Protein 5.8 L (6.3-8.2) g/dL Albumin 2.5 L (3.5-5.0) g/dL Albumin (PEP) (3.80-4.90) g/dL Uqqcw-7-Zkezesvcu (0.10-0.40) g/dL Beta Globulins (0.60-1.30) g/dL Gamma Globulins (0.70-1.50) g/dL Microbiology - Last 24 Hours (Table) 02/18/22 12:01 Anaerobic Culture - Final Heart Valve 02/18/22 12:01 Gram Stain - Final Heart Valve Tissue Culture - Final Assessment and Plan Assessment: Aortic valve endocarditis, secondary to Serratia marcescens. Postop day #5, status post aortic valve replacement. Severe aortic regurgitation, secondary to above. Routine postoperative ventilator management, with extubation on 02/19/2022. Acute blood loss anemia. Acute pulmonary edema. Plan: Plan dated 02/21/2022. The patient continues to improve. She's been weaned down to room air. She's getting lactated Ringer's at 20 mL an hour. We encouraged to deep breathe, cough, and clear any secretions. In addition, we recommend ongoing use of the incentive spirometer, every hour. We will continue to follow. She continues on GI and DVT prophylaxis. She continues on antibiotics. Overall prognosis remains guarded. We'll continue to follow make recommendations where appropriate. Plan dated 02/22/2022. The patient is doing very well. The patient's on room air. No IV fluids. Labs, x-rays, and medications are reviewed. Most recent blood cultures are negative. The patient remains on cefepime. We will continue to follow. In my opinion, the patient is stable for transfer out of the intensive care unit. No additional recommendations are made. Prognosis is certainly very guarded. She continues on GI and DVT prophylaxis. Plan dated 02/23/2022. The patient is seen again in room 267. The patient's on room air. She's not receiving any IV fluids. The patient is doing very well. We will continue to follow. She continues to use incentive spirometer. Her respiratory status and her hemodynamic status is very stable. We will continue with GI and DVT prophylaxis. She remains on cefepime. Prognosis is guarded. Time with Patient: Less than 30
[2022-02-23] MEDS ORDERED: LOPERAMIDE 2 MG CAP PO PRN (10:30)
[2022-02-23] MEDS: ESCITALOPRAM 5 MG TAB PO SCH (10:47)
[2022-02-23] MEDS: FERROUS SULFATE 325 MG TAB PO SCH ×2 (10:47→18:09)
[2022-02-23] MEDS: LOPERAMIDE 2 MG CAP PO PRN ×2 (10:48→18:13)
--- NOTE | 2022-02-23 10:57 | P.PN ---
Subjective Principal diagnosis: Patient is doing well Denies any chest discomfort shortness of breath Sitting up comfortably in a chair She has some diarrhea this time which is her only problem according to her Pulse rate in the 80s blood pressure 129/82 mmHg Heart sounds S1 normal S2 crisp, mechanical sound Breath sounds are reduced bilaterally Hemoglobin is 8.0 BUN is 26 creatinine 0.78 Electrolytes are normal Impression 80 valve endocarditis with us, Serratia marcescens bacteremia and sepsis Status post aortic valve replacement, mechanical aortic valve Ligation of the left atrial appendage Plan Continue current medications Continue anticoagulation with warfarin Continue beta blockers Continue aspirin Objective - Vital Signs Vital signs: Vital Signs Temp 98.1 F 02/23/22 08:00 Pulse 83 02/23/22 08:33 Resp 30 H 02/23/22 07:00 BP 129/82 02/23/22 07:00 Pulse Ox 95 02/23/22 06:00 FiO2 35 02/22/22 04:00 Intake & Output 02/22/22 02/23/22 02/23/22 18:59 06:59 18:59 Intake Total 720 820 10 Output Total 1600 1500 Balance -880 -680 10 Weight 79.5 kg 79.5 kg Intake: IV 180 10 Cefepime 2 gm In Sodium 100 Chloride 0.9% 100 ml @ 25 mls/hr IVPB Q8HR [facility] Rx# :[id number] Lactated Ringers 1,000 ml 80 10 @ 20 mls/hr IV .Q24H [facility] Rx#:[id number] Oral 720 640 Output: Urine 1600 1500 Other: Voiding Method Bedside Commode Bedside Commode # Bowel Movements 1 1 ABP, PAP, CO, CI - Last Documented Arterial Blood Pressure 137/59 Pulmonary Artery Pressure 26/8 Cardiac Output 6.5 Cardiac Index 3.5 - Labs CBC & Chem 7: 02/23/22 06:17 02/23/22 06:17 Labs: Abnormal Lab Results - Last 24 Hours (Table) 02/16/22 02/22/22 02/22/22 Range/Units 15:30 16:13 19:59 RBC (3.80-5.40) m/uL Hgb (11.4-16.0) gm/dL Hct (34.0-46.0) % RDW (11.5-15.5) % Sodium (137-145) mmol/L Chloride (98-107) mmol/L Carbon Dioxide (22-30) mmol/L BUN (7-17) mg/dL Glucose (74-99) mg/dL POC Glucose (mg/dL) 144 H 151 H (70-110) mg/dL Calcium (8.4-10.2) mg/dL AST (14-36) U/L Total Protein (6.3-8.2) g/dL Albumin (3.5-5.0) g/dL Albumin (PEP) 2.26 L (3.80-4.90) g/dL Skqgz-9-Ykzhizsqt 0.70 H (0.10-0.40) g/dL Beta Globulins 0.57 L (0.60-1.30) g/dL Gamma Globulins 1.67 H (0.70-1.50) g/dL 02/22/22 02/23/22 02/23/22 Range/Units 20:07 06:17 06:17 RBC 2.94 L (3.80-5.40) m/uL Hgb 8.0 L (11.4-16.0) gm/dL Hct 24.6 L (34.0-46.0) % RDW 19.3 H (11.5-15.5) % Sodium 135 L (137-145) mmol/L Chloride 109 H (98-107) mmol/L Carbon Dioxide 21 L 21 L (22-30) mmol/L BUN 26 H (7-17) mg/dL Glucose 108 H (74-99) mg/dL POC Glucose (mg/dL) (70-110) mg/dL Calcium 7.6 L (8.4-10.2) mg/dL AST 40 H (14-36) U/L Total Protein 5.8 L (6.3-8.2) g/dL Albumin 2.5 L (3.5-5.0) g/dL Albumin (PEP) (3.80-4.90) g/dL Nlsxk-6-Ypgaawiaq (0.10-0.40) g/dL Beta Globulins (0.60-1.30) g/dL Gamma Globulins (0.70-1.50) g/dL Microbiology - Last 24 Hours (Table) 02/18/22 12:01 Anaerobic Culture - Final Heart Valve 02/18/22 12:01 Gram Stain - Final Heart Valve Tissue Culture - Final
[2022-02-23 11:58] LABS: Glucose,Whole Blood 114 mg/dL (70-110)
[2022-02-23] MEDS: CHOLESTYRAMINE (WITH SUGAR) 4 GM PACKET PO SCH ×2 (12:26→18:09)
[2022-02-23 15:49] LABS: ANA Pattern Speckled
[2022-02-23 17:38] LABS: Glucose,Whole Blood 147 mg/dL (70-110)
[2022-02-23] MEDS ORDERED: WARFARIN 5 MG TAB PO ONE (18:00)
[2022-02-23 20:00] LABS: Glucose,Whole Blood 131 mg/dL (70-110)
--- NOTE | 2022-02-23 21:58 | P.PN ---
Subjective This is a pleasant 56 years old female with past medical history of anxiety, PTSD, presents with altered mental status. She is a patient of Dr. Vizcarra. Patient was admitted in the ICU from the emergency room, patient could not provide information which were obtained from medical records and staff. per ems pt was recently at [facility] for a blood infection. pt's last known well was last night at 10:30pm. pt found by family this evening altered. Patient was intubated in the emergency room Patient had a fever of 103 on admission, she is tachypneic 29-31, blood pressure 107/53 Labs reviewed on admission, WBC 8.7, low hemoglobin 6.9, low platelet 120, with thrombocytopenia which is mild ESR is elevated at 90, CRP elevated 8.9 PH normal 7.4, pCO2 normal at 37 INR 1.2 Sodium 132, potassium 3.2, creatinine 1.0. Liver enzymes are normal as well as bilirubin. Troponin is elevated at 0.37. ProBNP is elevated to 38,000 Urinalysis showing 3+ protein, large blood, RBC 127, WBC 27. Urine test is negative. Urine drug screen is positive for opioids EKG showing sinus tachycardia at [address]-T changes Chest x-ray: Acute pulmonary edema Computed tomography scan of the head and neck: Normal cervical spine with no fracture and normal CT of the brain by radiologist In the emergency room she received IV fluids with normal saline, vancomycin and ceftriaxone and ibuprofen and IV Tylenol, Dilaudid and lorazepam and succi nylcholine 02/10/2022 Patient is a pleasant 36 years old female was admitted with AMS and acute pul monary edema, she got intubated on admission and entered closely in the ICU with pulmonary/critical care team. Echocardiogram showed evidence of regurgitation on the aortic valve, which is confirmatory with WADE showed severe aortic regurgitation. Patient's risk factors with subacute bacterial endocarditis with sepsis secondary with Serratia marcescens and blood culture, a patient currently kept o n antibiotics with cefepime. IV vancomycin discontinued. She is also gentle hydration Today several consultants were on the case including pulmonary, cardiology, cardiothoracic surgery infectious disease with recommendation to transfer patient to tertiary care center I discussed the case with MICU fellow at [facility] in [place] Dr. Valladares and I discussed the case with her and she currently accepted the patient depending bed availability. 02/11/2022 Patient remains critically ill in the intensive care unit, she still intubated and on mechanical ventilation. Pulmonary/critical care to follow closely and help with vent management. She remains on broad-spectrum antibiotics of cefepime for positive blood culture with Serratia for her endocarditis I discussed the case with her report MICU team yesterday and they Accepted the patient, pending bed availability. Patient is followed closely by several consultants including cardiology, cardiothoracic and surgery teams as well as infectious disease. And WADE are noted. 02/12/2022 Patient got extubated and currently her respiratory status is stable and at baseline or close to baseline she is not tachypneic or hypoxic. This morning she was still tired and very sleepy and she could not provide information however she started waking up throughout the day and she is alert awake and oriented. Repeat chest x-ray showing clearance of pulmonary edema but there is development of right lower lobe infiltrate. Rest of vitals and labs are stable. She has low-grade temperature of 99.8 today. She is currently on cefepime. I discussed the case again with [facility] at her report, they informed me her transfer was canceled because [facility] has reached its full capacity. On reviewing this with the staff patient may not needed to be transferred and her aortic valve regurgitation be managed in this facility. However we will follow up with pulmonary/critical care team and surgery teams. 02/13/2022 Patient today is fully awake and oriented, she looks a pleasant and calm, she denies any specific symptoms to me. She looks mildly tired and lethargic. However her mentation is normal. She denies chest pain or dyspnea. No abdominal pain or vomiting or diarrhea. No urinary complaints. No headache or weakness or numbness. No dizziness. She is hemodynamically stable. Labs look stable. She's continued on IV cefepime. Repeat blood culture is negative. Cardiothoracic surgery team recommended aortic valve repair during this admission and colonoscopy to be done prior to the procedure however a decline in the procedure We will follow up with the consult recommendation 02/14/2022 Patient today awake and alert, she did not complain of from any specific complaint to me, she has insight into [facility] and she has several questions ANSWERED to her satisfaction, most of them were around colonoscopy and I'll exp pamela to her extensively. It looks like later on patient evaluated by GI team for clearance prior to expected cardiothoracic surgery to replace the aortic valve. And per GI team patient is going for colonoscopy tomorrow morning. Patient denies chest pain or dyspnea. No abdominal pain with she still have some diarrhea. Other than that she remains on cefepime as per ID team. vitals are reviewed s table. 02/15/2022 Patient remains in the ICU, fully awake and oriented, calm and not in distress. Vitals and labs look stable. Reviewed in details Abdomen discussion with the patient looks like she is agreeable to colonoscopy. Also she told me about the need to take her to without and that she is thinking about it and that she is going to discussed with the surgeon. Cardiothoracic surgery team on the case and the planned for aortic valve replacement given the damage caused by endocarditis. Repeat blood culture are negative so far. The patient remains on IV cefepime per ID team Colonoscopy results show normal colon per report 02/16/2022 Patient removed to the [facility], currently she is awake alert looks comfortable and pleasant and she is at room air, denies any specific symptoms, no chest pain, no abdominal pain, no dyspnea. No headache or weakness or numbness. And vitals are stable. She was happy that her tooth was extracted and she was put to sleep so she could not feel it. Patient kept now on IV antibiotic with cefepime and the recommendation of ID team, she will need a prolonged course of IV antibiotics. Cardiothoracic surgery team are planning for aortic valve replacement, with further workup is in progress I'm resume the care of the patient today 02/20/2022 Patient is status post aortic valve replacement with mechanical aortic valve on 02/18. Today postop day #2. He is been marked closely in the ICU. She is awake and alert, she is complaining from some discomfort at the surgery site. Blood pressure is borderline and she is mildly tachypneic, tachycardic. Hemoglobin 8.3, creatinine 1.19. She is currently Kept on cefepime also IV Lasix added by cardiothoracic surgery team on the dose of 20 mg twice a day. 02/21/2022 Patient is Zhou today from pain and discomfort at chest tube 2. With surgery team on the case and plan to remove these tubes today. Other than that she is awake and alert denies any other new complaints. Hemoglobin 8.3, creatinine 1.12. She remains on cefepime and IV Lasix Chest x-ray showing persistent cardiomegaly and pulmonary vascular congestion with bilateral basal infiltrates. Surgery team are planning to start her on Coumadin today, and continue with aspirin 81 and DC Plavix per the recommendation. Goal INR is 2-3 02/22/2022 A feels better and more comfortable especially after chest tube were taken out No other new complaints Vitals and labs look stable Remains on cefepime. IV Lasix increased today to 40 mg twice daily, metoprolol added, continued on aspirin 81 mg Heparin changed to Lovenox for DVT prophylaxis Looks like patient is going to be cleared to be transferred to the general medical floor 02/23/2022 patient continued to improve and feeling better each day slowly and gradually. She tolerates that well she denies any new complaints. She has some loose bowel movements. C. diff is ordered per primary team She remains on cefepime with infectious disease team on the case. Repeat blood culture is negative. Chest x-ray showing same changes with evidence of aortic valve postsurgical changes. Patient will be transferred out of the ICU today to the general medical floor at [facility] - Vital Signs Vital signs: Vital Signs Temp 98.1 F 02/23/22 08:00 Pulse 83 02/23/22 08:33 Resp 30 H 02/23/22 07:00 BP 129/82 02/23/22 07:00 Pulse Ox 95 02/23/22 06:00 FiO2 35 02/22/22 04:00 Intake & Output 02/22/22 02/23/22 02/23/22 18:59 06:59 18:59 Intake Total 720 820 10 Output Total 1600 1500 Balance -880 -680 10 Weight 79.5 kg 79.5 kg Intake: IV 180 10 Cefepime 2 gm In Sodium 100 [place] 0.9% 100 ml @ 25 mls/hr IVPB Q8HR [facility] Rx# :[id number] Lactated Ringers 1,000 ml 80 10 @ 20 mls/hr IV .Q24H [facility] Rx#:[id number] Oral 720 640 Output: Urine 1600 1500 Other: Voiding Method Bedside Commode Bedside Commode # Bowel Movements 1 1 ABP, PAP, CO, CI - Last Documented Arterial Blood Pressure 137/59 Pulmonary Artery Pressure 26/8 Cardiac Output 6.5 Cardiac Index 3.5 - Exam -GENERAL: The patient is awake and alert but tired HEENT: Pupils are round and equally reacting to light. EOMI. No scleral icterus. No conjunctival pallor. Normocephalic, atraumatic. No pharyngeal erythema. No thyromegaly. CARDIOVASCULAR: S1 and S2 present. no murmurs, rubs, or gallops. -PULMONARY: Chest is clear to auscultation, no wheezing or crackles. Surgical wound, and a dressing. Rest of exam was deferred surgery team ABDOMEN: Soft, nontender, nondistended, normoactive bowel sounds. No palpable organomegaly. MUSCULOSKELETAL: No joint swelling or deformity. EXTREMITIES: No cyanosis, clubbing, or pedal edema. NEUROLOGICAL: Gross neurological examination did not reveal any focal deficits. SKIN: No rashes. no petechiae. - Labs CBC & Chem 7: 02/23/22 06:17 02/23/22 06:17 Labs: Abnormal Lab Results - Last 24 Hours (Table) 02/16/22 02/22/22 02/22/22 Range/Units 15:30 16:13 19:59 RBC (3.80-5.40) m/uL Hgb (11.4-16.0) gm/dL Hct (34.0-46.0) % RDW (11.5-15.5) % Sodium (137-145) mmol/L [place] (98-107) mmol/L Carbon Dioxide (22-30) mmol/L BUN (7-17) mg/dL Glucose (74-99) mg/dL POC Glucose (mg/dL) 144 H 151 H (70-110) mg/dL Calcium (8.4-10.2) mg/dL AST (14-36) U/L Total Protein (6.3-8.2) g/dL Albumin (3.5-5.0) g/dL Albumin (PEP) 2.26 L (3.80-4.90) g/dL [id number] 0.70 H (0.10-0.40) g/dL Beta Globulins 0.57 L (0.60-1.30) g/dL Gamma Globulins 1.67 H (0.70-1.50) g/dL 08/24/22 08/25/22 08/25/22 Range/Units 20:07 06:17 06:17 RBC 2.94 L (3.80-5.40) m/uL Hgb 8.0 L (11.4-16.0) gm/dL Hct 24.6 L (34.0-46.0) % RDW 19.3 H (11.5-15.5) % Sodium 135 L (137-145) mmol/L Chloride 109 H (98-107) mmol/L Carbon Dioxide 21 L 21 L (22-30) mmol/L BUN 26 H (7-17) mg/dL Glucose 108 H (74-99) mg/dL POC Glucose (mg/dL) (70-110) mg/dL Calcium 7.6 L (8.4-10.2) mg/dL AST 40 H (14-36) U/L Total Protein 5.8 L (6.3-8.2) g/dL Albumin 2.5 L (3.5-5.0) g/dL Albumin (PEP) (3.80-4.90) g/dL [id number]-[id number] (0.10-0.40) g/dL Beta Globulins (0.60-1.30) g/dL Gamma Globulins (0.70-1.50) g/dL Microbiology - Last 24 Hours (Table) 02/18/22 12:01 Anaerobic Culture - Final Heart Valve 02/18/22 12:01 Gram Stain - Final Heart Valve Tissue Culture - Final Assessment and Plan Assessment: Subacute bacterial endocarditis Severe aortic regurgitation secondary to above, status post aortic valve replacement with mechanical valve on 02/18 Sepsis with fever and tachypnea, resolved Acute hypoxic respiratory failure requiring intubation and mechanical ventilation, she got extubated and currently on nasal cannula Metabolic encephalopathy Acute pulmonary edema, could be acute CHF versus RDS Severe anemia, microcytic hyperchromic requiring blood transfusion 4 Elevated troponin Plan: This is a pleasant 56 years old female who presents with AMS, on mechanical ventilation, anemia Continue with antibiotics as per ID team, currently on cefepime Keep follow-up and repeat blood culture, negative so far Cardiothoracic surgery team of the case, patient is a status post aortic valve replacement. Patient is started with coumadine. Also on aspirin 81 mg Several consultants on the case including infectious disease, pulmonary/critical care, cardiology, cardiothoracic surgery labs and medication were reviewed.. Continue same treatment. Continue with symptomatic treatment. Resume home medication. Monitor lytes and vitals. DVT and GI prophylaxis. Further recommendations as per clinical course of the patient DVT prophylaxis: asparin and common GI Prophylaxis: Ppi Prognosis is guarded
[2022-02-24] MEDS: CEFEPIME 2 GM in SODIUM CHLORIDE 0.9% 100 ML IVPB SCH ×3 (00:04→18:17)
[2022-02-24] MEDS: ONDANSETRON 4 MG/2 ML VIAL IVP PRN (04:16)
[2022-02-24] MEDS: ACETAMINOPHEN TAB 325 MG TAB PO PRN ×4 (04:17→20:05)
[2022-02-24 06:11] LABS: Glucose,Whole Blood 112 mg/dL (70-110)
[2022-02-24] MEDS: INSULIN ASPART (NovoLOG) 100 UNIT/ML VIAL SQ SCH ×4 (06:14→20:06)
[2022-02-24] MEDS: PANTOPRAZOLE 40 MG TABLET PO SCH ×2 (06:17→18:19)
[2022-02-24] MEDS: FERROUS SULFATE 325 MG TAB PO SCH ×2 (06:17→18:19)
--- NOTE | 2022-02-24 07:21 | XR ---
EXAMINATION TYPE: XR chest 1V portable DATE OF EXAM: 02/24/2022 COMPARISON: 02/23/2022 INDICATION: Postoperative cardiac surgery TECHNIQUE: Single frontal view of the chest is obtained. FINDINGS: The heart size is mildly prominent. The pulmonary vasculature is upper limits for normal. There is opacity within the right mid lung, likely fluid within the minor fissure. Left basilar infi ltrate and/or small left pleural effusion is present. PICC line enters on the right with the tip in the distal superior vena cava region. Sternotomy wires are in the midline. IMPRESSION: 1. Left lower lobe infiltrate and/or small pleural effusion. 2. Small amount of fluid is within the minor fissure on the right. 3. Cardiomegaly
[2022-02-24] MEDS ORDERED: PROMETHAZINE 25 MG TAB PO STA (08:15)
[2022-02-24] MEDS: ESCITALOPRAM 5 MG TAB PO SCH (08:40)
[2022-02-24] MEDS: CHOLESTYRAMINE (WITH SUGAR) 4 GM PACKET PO SCH ×2 (09:02→18:18)
[2022-02-24] MEDS: ATORVASTATIN 40 MG TAB PO SCH (09:03)
[2022-02-24] MEDS: FUROSEMIDE 10 MG/ML 4 ML VIAL IV SCH ×2 (09:03→18:18)
[2022-02-24] MEDS: POTASSIUM CHLORIDE ER 10 MEQ TAB.ER.PRT PO SCH (09:04)
[2022-02-24] MEDS: ASPIRIN 81 MG PO SCH (09:04)
[2022-02-24] MEDS: ASCORBIC ACID 500 MG TAB PO SCH ×2 (09:04→20:06)
[2022-02-24] MEDS: ENOXAPARIN 40 MG/0.4 ML SYRINGE SQ SCH (09:05)
[2022-02-24] MEDS: METOPROLOL TARTRATE 25 MG TAB PO SCH ×2 (09:32→20:06)
[2022-02-24 09:44] LABS: Anisocytosis Slight; Basophils % (A) 0 %; Eosinophils % (A) 1 %; HCT 22.9 % (34.0-46.0); HGB 7.1 gm/dL (11.4-16.0); Hypochromasia Moderate; Lymphocytes # (A) 0.4 k/uL (1.0-4.8); Lymphocytes % (A) 9 %; MCH 26.2 pg (25.0-35.0); MCHC 31.1 g/dL (31.0-37.0); MCV 84.5 fL (80.0-100.0); Mean Platelet Volume 8.1; Microcytosis Slight; Monocytes # (A) 0.2 k/uL (0-1.0); Monocytes % (A) 5 %; Neutrophils # (A) 3.6 k/uL (1.3-7.7); Neutrophils % (A) 84 %; Platelet Count 191 k/uL (150-450); Poikilocytosis Slight; RBC 2.71 m/uL (3.80-5.40); RDW 19.8 % (11.5-15.5); WBC 4.3 k/uL (3.8-10.6)
[2022-02-24 10:02] LABS: ALT 20 U/L (4-34); AST 24 U/L (14-36); African American GFR (CKD) >90 (>60 ml/min/1.73 sqM); Albumin 2.5 g/dL (3.5-5.0); Alkaline Phosphatase 91 U/L (38-126); Anion Gap 5 mmol/L; Blood Urea Nitrogen 21 mg/dL (7-17); Calcium 7.7 mg/dL (8.4-10.2); Carbon Dioxide 25 mmol/L (22-30); Chloride 107 mmol/L (98-107); Glucose 139 mg/dL (74-99); Magnesium 1.6 mg/dL (1.6-2.3); Non-African American GFR(CKD) >90 (>60 ml/min/1.73 sqM); Potassium 4.5 mmol/L (3.5-5.1); Sodium 137 mmol/L (137-145); Total Bilirubin 0.4 mg/dL (0.2-1.3); Total Protein 5.7 g/dL (6.3-8.2)
--- NOTE | 2022-02-24 10:22 | P.PN ---
Subjective This is a pleasant 56 years old female with past medical history of anxiety, PTSD, presents with altered mental status. She is a patient of Dr. Vizcarra. Patient was admitted in the ICU from the emergency room, patient could not provide information which were obtained from medical records and staff. per ems pt was recently at [place] for a blood infection. pt's last known well was last night at 10:30pm. pt found by family this evening altered. Patient was intubated in the emergency room Patient had a fever of 103 on admission, she is tachypneic 29-31, blood pressure 107/53 Labs reviewed on admission, WBC 8.7, low hemoglobin 6.9, low platelet 120, with thrombocytopenia which is mild ESR is elevated at 90, CRP elevated 8.9 PH normal 7.4, pCO2 normal at 37 INR 1.2 Sodium 132, potassium 3.2, creatinine 1.0. Liver enzymes are normal as well as bilirubin. Troponin is elevated at 0.37. ProBNP is elevated to 38,000 Urinalysis showing 3+ protein, large blood, RBC 127, WBC 27. Urine test is negative. Urine drug screen is positive for opioids EKG showing sinus tachycardia at [address]-T changes Chest x-ray: Acute pulmonary edema Computed tomography scan of the head and neck: Normal cervical spine with no fracture and normal CT of the brain by radiologist In the emergency room she received IV fluids with normal saline, vancomycin and ceftriaxone and ibuprofen and IV Tylenol, Dilaudid and lorazepam and succi nylcholine 02/10/2022 Patient is a pleasant 36 years old female was admitted with AMS and acute pul monary edema, she got intubated on admission and entered closely in the ICU with pulmonary/critical care team. Echocardiogram showed evidence of regurgitation on the aortic valve, which is confirmatory with WADE showed severe aortic regurgitation. Patient's risk factors with subacute bacterial endocarditis with sepsis secondary with Serratia marcescens and blood culture, a patient currently kept o n antibiotics with cefepime. IV vancomycin discontinued. She is also gentle hydration Today several consultants were on the case including pulmonary, cardiology, cardiothoracic surgery infectious disease with recommendation to transfer patient to tertiary care center I discussed the case with MICU fellow at [facility] in [place] Dr. Valladares and I discussed the case with her and she currently accepted the patient depending bed availability. 02/11/2022 Patient remains critically ill in the intensive care unit, she still intubated and on mechanical ventilation. Pulmonary/critical care to follow closely and help with vent management. She remains on broad-spectrum antibiotics of cefepime for positive blood culture with Serratia for her endocarditis I discussed the case with her report MICU team yesterday and they Accepted the patient, pending bed availability. Patient is followed closely by several consultants including cardiology, cardiothoracic and surgery teams as well as infectious disease. And WADE are noted. 02/12/2022 Patient got extubated and currently her respiratory status is stable and at baseline or close to baseline she is not tachypneic or hypoxic. This morning she was still tired and very sleepy and she could not provide information however she started waking up throughout the day and she is alert awake and oriented. Repeat chest x-ray showing clearance of pulmonary edema but there is development of right lower lobe infiltrate. Rest of vitals and labs are stable. She has low-grade temperature of 99.8 today. She is currently on cefepime. I discussed the case again with [facility] at her report, they informed me her transfer was canceled because [facility] has reached its full capacity. On reviewing this with the staff patient may not needed to be transferred and her aortic valve regurgitation be managed in this facility. However we will follow up with pulmonary/critical care team and surgery teams. 02/13/2022 Patient today is fully awake and oriented, she looks a pleasant and calm, she denies any specific symptoms to me. She looks mildly tired and lethargic. However her mentation is normal. She denies chest pain or dyspnea. No abdominal pain or vomiting or diarrhea. No urinary complaints. No headache or weakness or numbness. No dizziness. She is hemodynamically stable. Labs look stable. She's continued on IV cefepime. Repeat blood culture is negative. Cardiothoracic surgery team recommended aortic valve repair during this admission and colonoscopy to be done prior to the procedure however a decline in the procedure We will follow up with the consult recommendation 02/14/2022 Patient today awake and alert, she did not complain of from any specific complaint to me, she has insight into [facility] and she has several questions ANSWERED to her satisfaction, most of them were around colonoscopy and I'll exp pamela to her extensively. It looks like later on patient evaluated by GI team for clearance prior to expected cardiothoracic surgery to replace the aortic valve. And per GI team patient is going for colonoscopy tomorrow morning. Patient denies chest pain or dyspnea. No abdominal pain with she still have some diarrhea. Other than that she remains on cefepime as per ID team. vitals are reviewed s table. 02/15/2022 Patient remains in the ICU, fully awake and oriented, calm and not in distress. Vitals and labs look stable. Reviewed in details Abdomen discussion with the patient looks like she is agreeable to colonoscopy. Also she told me about the need to take her to without and that she is thinking about it and that she is going to discussed with the surgeon. Cardiothoracic surgery team on the case and the planned for aortic valve replacement given the damage caused by endocarditis. Repeat blood culture are negative so far. The patient remains on IV cefepime per ID team Colonoscopy results show normal colon per report 02/16/2022 Patient removed to the [facility], currently she is awake alert looks comfortable and pleasant and she is at room air, denies any specific symptoms, no chest pain, no abdominal pain, no dyspnea. No headache or weakness or numbness. And vitals are stable. She was happy that her tooth was extracted and she was put to sleep so she could not feel it. Patient kept now on IV antibiotic with cefepime and the recommendation of ID team, she will need a prolonged course of IV antibiotics. Cardiothoracic surgery team are planning for aortic valve replacement, with further workup is in progress I'm resume the care of the patient today 02/20/2022 Patient is status post aortic valve replacement with mechanical aortic valve on 02/18. Today postop day #2. He is been marked closely in the ICU. She is awake and alert, she is complaining from some discomfort at the surgery site. Blood pressure is borderline and she is mildly tachypneic, tachycardic. Hemoglobin 8.3, creatinine 1.19. She is currently Kept on cefepime also IV Lasix added by cardiothoracic surgery team on the dose of 20 mg twice a day. 02/21/2022 Patient is Zhou today from pain and discomfort at chest tube 2. With surgery team on the case and plan to remove these tubes today. Other than that she is awake and alert denies any other new complaints. Hemoglobin 8.3, creatinine 1.12. She remains on cefepime and IV Lasix Chest x-ray showing persistent cardiomegaly and pulmonary vascular congestion with bilateral basal infiltrates. Surgery team are planning to start her on Coumadin today, and continue with aspirin 81 and DC Plavix per the recommendation. Goal INR is 2-3 02/22/2022 A feels better and more comfortable especially after chest tube were taken out No other new complaints Vitals and labs look stable Remains on cefepime. IV Lasix increased today to 40 mg twice daily, metoprolol added, continued on aspirin 81 mg Heparin changed to Lovenox for DVT prophylaxis Looks like patient is going to be cleared to be transferred to the general medical floor 02/23/2022 patient continued to improve and feeling better each day slowly and gradually. She tolerates that well she denies any new complaints. She has some loose bowel movements. C. diff is ordered per primary team She remains on cefepime with infectious disease team on the case. Repeat blood culture is negative. Chest x-ray showing same changes with evidence of aortic valve postsurgical changes. Patient will be transferred out of the ICU today to the general medical floor at [facility] 02/24/2022 patient complaining of from nausea and some hot flashes especially last night, however she is able to tolerate diet well. Vitals pulse are stable. Chest x-ray showing possible left lower lobe infiltrate or small pleural effusion, there is some fluid on the right fissure and cardiomegaly. Hemoglobin today dropped 8.6-7.1. However there is no signs of bleeding, we'll keep monitoring vitals and hemoglobin. Protonix increased to twice daily She is on Coumadin for anticoagulation regarding her mechanical valve. INR was 1 yesterday, today still pending She is kept on cefepime for now Objective - Vital Signs Vital signs: Vital Signs Temp 98.1 F 02/24/22 08:32 Pulse 89 02/24/22 08:32 Resp 17 02/24/22 08:32 BP 132/81 02/24/22 08:32 Pulse Ox 98 02/24/22 08:32 FiO2 35 02/22/22 04:00 Intake & Output 02/23/22 02/24/22 02/24/22 18:59 06:59 18:59 Intake Total 310 600 120 Output Total 1550 1500 Balance -1240 -900 120 Weight 74.9 kg Intake: IV 10 100 Cefepime 2 gm In Sodium 100 Chloride 0.9% 100 ml @ 25 mls/hr IVPB Q8HR [facility] Rx# :[id number] Lactated Ringers 1,000 ml 10 @ 20 mls/hr IV .Q24H [facility] Rx#:[id number] Oral 300 500 120 Output: Urine 1550 1500 Other: Voiding Method Toilet Toilet # Voids 2 # Bowel Movements 1 ABP, PAP, CO, CI - Last Documented Arterial Blood Pressure 137/59 Pulmonary Artery Pressure 26/8 Cardiac Output 6.5 Cardiac Index 3.5 - Exam -GENERAL: The patient is awake and alert but tired HEENT: Pupils are round and equally reacting to light. EOMI. No scleral icterus. No conjunctival pallor. Normocephalic, atraumatic. No pharyngeal erythema. No thyromegaly. CARDIOVASCULAR: S1 and S2 present. no murmurs, rubs, or gallops. -PULMONARY: Chest is clear to auscultation, no wheezing or crackles. Surgical wound, and a dressing. Rest of exam was deferred surgery team ABDOMEN: Soft, nontender, nondistended, normoactive bowel sounds. No palpable organomegaly. MUSCULOSKELETAL: No joint swelling or deformity. EXTREMITIES: No cyanosis, clubbing, or pedal edema. NEUROLOGICAL: Gross neurological examination did not reveal any focal deficits. SKIN: No rashes. no petechiae. - Labs CBC & Chem 7: 02/24/22 09:15 02/24/22 09:15 Labs: Abnormal Lab Results - Last 24 Hours (Table) 02/23/22 02/23/22 02/23/22 Range/Units 11:52 17:37 19:59 RBC (3.80-5.40) m/uL Hgb (11.4-16.0) gm/dL Hct (34.0-46.0) % RDW (11.5-15.5) % Lymphocytes # (1.0-4.8) k/uL BUN (7-17) mg/dL Glucose (74-99) mg/dL POC Glucose (mg/dL) 114 H 147 H 131 H (70-110) mg/dL Calcium (8.4-10.2) mg/dL Total Protein (6.3-8.2) g/dL Albumin (3.5-5.0) g/dL 02/24/22 02/24/22 02/24/22 Range/Units 06:09 09:15 09:15 RBC 2.71 L (3.80-5.40) m/uL Hgb 7.1 L (11.4-16.0) gm/dL Hct 22.9 L (34.0-46.0) % RDW 19.8 H (11.5-15.5) % Lymphocytes # 0.4 L (1.0-4.8) k/uL BUN 21 H (7-17) mg/dL Glucose 139 H (74-99) mg/dL POC Glucose (mg/dL) 112 H (70-110) mg/dL Calcium 7.7 L (8.4-10.2) mg/dL Total Protein 5.7 L (6.3-8.2) g/dL Albumin 2.5 L (3.5-5.0) g/dL Assessment and Plan Assessment: Subacute bacterial endocarditis Severe aortic regurgitation secondary to above, status post aortic valve replacement with mechanical valve on 02/18 Sepsis with fever and tachypnea, resolved Acute hypoxic respiratory failure requiring intubation and mechanical venti lation, she got extubated and currently on nasal cannula Metabolic encephalopathy Acute pulmonary edema, could be acute CHF versus RDS Severe anemia, microcytic hyperchromic requiring blood transfusion 4 Elevated troponin Plan: This is a pleasant 56 years old female who presents with AMS, on mechanical ventilation, anemia Continue with antibiotics as per ID team, currently on cefepime Keep follow-up and repeat blood culture, negative so far Give Phenergan 1 diet and increase Protonix twice daily Monitor hemoglobin closely Cardiothoracic surgery team of the case, patient is a status post aortic valve replacement. Patient is started with coumadine. Also on aspirin 81 mg Several consultants on the case including infectious disease, pulmonary/critical care, cardiology, cardiothoracic surgery labs and medication were reviewed.. Continue same treatment. Continue with symptomatic treatment. Resume home medication. Monitor lytes and vitals. DVT and GI prophylaxis. Further recommendations as per clinical course of the patient DVT prophylaxis: asparin and common GI Prophylaxis: Ppi Prognosis is guarded
[2022-02-24 10:24] LABS: INR 1.1 (<1.2); Prothrombin Time 12.2 sec (9.0-12.0)
--- NOTE | 2022-02-24 10:43 | P.PN ---
Subjective Progress Note Date: 02/24/22 Principal diagnosis: Aortic valve endocarditis with severe aortic valve regurgitation, possible root abscess, Serratia marcescens bacteremia, sepsis, acute hypoxic respiratory fail ure requiring mechanical ventilation, altered mental status, acute anemia, acute kidney injury with a peak creatinine of 1.31. Past medical history significant for bacteremia with blood cultures from [facility] positive for Serratia marcescens, recent history of colitis and splenomegaly likely splenic infarct, anxiety, PTSD with history of self mutilation. POD #6 Aortic valve replacement with 23 mm On-X mechanical aortic valve, patch closure of aortotomy with involving pericardium, debridement of some annular infected tissue in aortic outflow tract, ligation of left atrial appendage with 35 mm AtriCure clip. Postoperative acute blood loss anemia and thrombocytopenia, expected given her preop anemia, hemodilution and cardiopulmonary bypass. The patient was seen and examined in follow-up today 02/24/2022 at her bedside on the cardiac stepdown unit. She denies any complaints of pain or shortness of breath time although, reports she had complaints of nausea last evening around 8 PM that lasted for a couple of hours. No further complaints of diarrhea this morning. She is contributing the nausea to her Coumadin. Oxygen saturations are 98% on room air and she is achieving 0272-6657 mL on her incentive spirometry with much encouragement. Remote telemetry showing normal sinus rhythm heart rate 75 BPM. Right arm PICC line remains in place with cefepime 2 g IV piggyback every 8 hours for antibiotic coverage managed by infectious disease for history of Serratia marcescens bacteremia. Most recent blood cultures from 02/11/2022 showed no growth and her heart valve Gram stain culture and anaerobic culture showed no growth. Aortic valve pathology demonstrated sclerotic and edematous valvular tissue with focal acute and chronic inflammation and associated fibrinous debris, negative for malignancy. She has been afebrile the last 24 hours. Objective - Vital Signs Vital signs: Vital Signs Temp 98.1 F 02/24/22 08:32 Pulse 89 02/24/22 08:32 Resp 17 02/24/22 08:32 BP 132/81 02/24/22 08:32 Pulse Ox 98 02/24/22 08:32 FiO2 35 02/22/22 04:00 Intake & Output 02/23/22 02/24/22 02/24/22 18:59 06:59 18:59 Intake Total 310 600 Output Total 1550 1500 Balance -1240 -900 Weight 74.9 kg Intake: IV 10 100 Cefepime 2 gm In Sodium 100 Chloride 0.9% 100 ml @ 25 mls/hr IVPB Q8HR [facility] Rx# :[id number] Lactated Ringers 1,000 ml 10 @ 20 mls/hr IV .Q24H [facility] Rx#:[id number] Oral 300 500 Output: Urine 1550 1500 Other: Voiding Method Toilet Toilet # Voids 2 # Bowel Movements 1 ABP, PAP, CO, CI - Last Documented Arterial Blood Pressure 137/59 Pulmonary Artery Pressure 26/8 Cardiac Output 6.5 Cardiac Index 3.5 - Exam CONSTITUTIONAL: Sitting up to the bedside chair on the cardiac stepdown unit, appears comfortable, cooperative, no apparent acute distress. HEENT: Neck is supple, no JVD, no lymphadenopathy. RESPIRATORY: Lungs sounds essentially clear throughout, diminished to his bilateral bases. Respirations are symmetrical and nonlabored. Currently oxygen saturations 98% on room air. Strong cough. Achieving 7689-7553 mL on her incentive spirometry with much encouragement. CARDIOVASCULAR: Regular rhythm and rate. S1 and S2 present with mechanical valvular click, negative for S3, gallop or murmur. Sternum is stable. Palpable peripheral pulses bilaterally, trace edema to her bilateral lower extremities. No calf pain or tenderness noted. Heart hugger in place and she is demonstrating appropriate use . Knee-high DAVI hose and sequential compression devices in place to her bilateral lower extremities. Remote telemetry showing normal sinus rhythm heart rate 75 BPM. GASTROINTESTINAL: Abdomen soft, nontender, nondistended. Active bowel sounds present 4 quadrants. Tolerating diet. No guarding or rigidity. Passing flatus. Nauseous. GENITOURINARY: Continues to void. Urine output 1500 mL in the last 8 hours. INTEGUMENTARY: Skin is warm and dry with no evidence of clubbing or cyanosis. Midline sternal incision clean dry and well approximated, covered with dry intac t dressing. NEUROLOGIC: Cranial nerves II through XII intact. No focal deficits. MUSKULOSKELETAL: Able to move all extremities, strength equal bilaterally. PSYCHIATRIC: Alert and oriented to person place and time, appropriate affect, intact judgment and insight. - Allied health notes Allied health notes reviewed: nursing - Labs CBC & Chem 7: 02/24/22 09:15 02/24/22 09:15 Labs: Abnormal Lab Results - Last 24 Hours (Table) 02/23/22 02/23/22 02/23/22 Range/Units 11:52 17:37 19:59 POC Glucose (mg/dL) 114 H 147 H 131 H (70-110) mg/dL 02/24/22 Range/Units 06:09 POC Glucose (mg/dL) 112 H (70-110) mg/dL - Imaging and Cardiology Chest x-ray: report reviewed, image reviewed Assessment and Plan Assessment: 1. 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 Serratia bacteremia, sepsis on cefepime 2 g IV piggyback every 8 hours managed by infectious disease, blood cultures from 02/11/2022 showed no growth after 144 hours, aortic valve Gram stain cultures show no growth after 3 days, anaerobic culture results remain pending showing no anaerobes seen to date 3. Acute hypoxic respiratory failure requiring mechanical ventilation 4. Altered mental status this admission, resolved 5. Acute on chronic anemia, status post blood transfusion hemoglobin 8.3 today 02/20/2022 6. Acute kidney injury, BUN 32 and creatinine 0.93 today 7. Recent history of colitis and splenomegaly likely splenic infarct, status post colonoscopy which showed normal appearing colon from the rectum to the cecum with no evidence of colitis or colorectal aplasia 8. History of anxiety 9. PTSD with history of self mutilation 10. Chronic dental abscess tooth #15, status post surgical extraction of tooth 11. Postoperative acute blood loss anemia, an expected outcome given her preoperative anemia, hemodilution and cardiopulmonary bypass 12. Suspected IV drug abuse per patient's father 13. Diarrhea, expected given her history of preoperative and history of preoperative colitis, resolved Plan: 1. Continue to maximize medical therapy with low-dose aspirin, statin, and beta bryan. Will increase metoprolol tartrate as tolerated. 2. Encourage incentive spirometry use 10 times every hour while awake. Bronchodilators per pulmonology/critical care medicine. 3. Increase activity, ambulate as tolerated. PT/OT/cardiac rehab following. 4. Will monitor daily labs and chest x-rays. Electrolyte replacement per prot ocol. 5. Pain control with current medication regimen. Avoid nephrotoxic agents. 6. GI and DVT prophylaxis. Continue Lovenox 40 mg subcu daily until INR is therapeutic. 7. Coumadin 5 mg by mouth today. The patient was given a dose of Coumadin 2.5 mg by mouth 1 yesterday for an INR of 1.1. Goal INR for first 3 months 2.0-3.0, after 3 months goal INR 1.5-2. Daily PT and INR. PT is 12.2 and INR is 1.1 today. 8. Insulin management per primary care service. Patient is a nondiabetic with a preoperative hemoglobin A1c 5.9%. 9. Continue to record strict accurate intake and output. Daily weights. 10. Continue Lasix 40 mg IV BID at 9 AM and 4 PM, continue Potassium chloride 10 mEq by mouth twice a day until Lasix is discontinued. 11. Continue cefepime 2 g IV piggyback every 8 hours managed by infectious disease. Aortic valve cultures negative. Aortic valve pathology demonstrated s clerotic and edematous valvular tissue with focal acute and chronic inflammation and associated fibrinous debris, negative for malignancy. Interventional radiology placed a PICC line yesterday for long-term antibiotic treatment on an outpatient basis. 12. Shower daily. 13. Case management/social work is arranging on outpatient IV antibiotic infusion with home care. 14. More recommendations to follow based on patient's clinical course. Time with Patient: Greater than 30
[2022-02-24 12:04] LABS: Glucose,Whole Blood 108 mg/dL (70-110)
--- NOTE | 2022-02-24 12:13 | P.PN ---
Subjective The patient is a 36-year-old female with past medical history of bacteremia with blood cultures from [facility] positive for Serratia marcescens, recent history of colitis and splenomegaly likely splenic infarct, anxiety, PTSD with history of self harm. Patient presented initially on 02/08/2022 with progressive dyspnea, change in mental status requiring mechanical ventilation. She was febrile and had positive blood cultures. She was recently discharged from [facility] with diarrhea and positive blood cultures as well with change in mental status. Her echocardiogram performed yesterday showed possible aortic valve vegetations that was confirmed on the transesophageal echocardiogram with severe aortic regurgitation and a tricuspid aortic valve. She had moderate mitral regurgitation. Her echocardiogram at [facility] on January 25 showed a normal systolic function with trace aortic regurgitation and no mention of vegetations. She had at [facility] evidence of splenic infarct and colitis as well has severe anemia. Her blood cultures were positive for Serratia Marcescens which is the same bacteria noted at [facility]. Her computed tomography scan of the abdomen showed moderately severe hepatosplenomegaly was bilateral enlargement of the kidneys. She had cardiomegaly with pleural effusion and basilar pulmonary infiltrate atelectasis. No suggestion of colitis was noted. 02/16/2022- Patient status post colonoscopy revealing normal colon without evidence of colitis or neoplasm. Patient is also status post tooth extraction on 02/15/2022. 02/18/22 Patient underwent mechanical aortic valve replacement with a 23 mm On-X valve with some additional debridement of outflow tract. 02/24 Patient seen and examined at bedside on 3S. She was transferred out of the ICU yesterday. She is up in the bedside chair, with no complaints. No further di arrhea today. She denies any pain, shortness of breath, lightheadedness or dizziness. She is overall improving. Her vital signs are stable. She is afebrile. She is maintaining sinus mechanism. She has Right arm PICC. She is continued on IV antibiotics per infectious disease. She is also currently on Coumadin. Labs, WBC 4.3, hemoglobin 7.1, platelets 191, sodium 137, potassium 4.5, BUN 21, serum creatinine 0.7, INR 1.1, Most recent blood cultures negative growth to date. Pathology from aortic valve revealed sclerotic and edematous valvular tissue with focal acute and chronic inflammation and associated fibrous degrees. Negative for malignancy. PHYSICAL EXAM: VITAL SIGNS: Reviewed. GENERAL: Well-developed in no acute distress, sedated and intubated on ventilator NECK: Supple. No JVD or thyromegaly LUNGS: Respirations even and unlabored. Decreased breath sounds bilaterally rig ht greater than left HEART: Regular rate and rhythm. Mechanical valvular click. S1 and S2 heard. no murmur noted. EXTREMITIES: Normal range of motion. No clubbing or cyanosis. Peripheral pulses intact. Trace bilateral lower extremity edema ASSESSMENT: Aortic valve endocarditis severe aortic regurgitation s/p 23mm On-X mechanical aortic valve 02/18 Serratia bacteremia Colitis and spleen infarct by CAT scan at [facility] Chronic dental abscess tooth, status post surgical extraction of tooth on 02/15 Acute hypoxic respiratory failure requiring mechanical ventilation Change in mental status prior to admission related to the sepsis, resolved Anemia, most likely related to the infectious process, improved Acute kidney injury, resolved Postoperative Blood loss anemia requiring blood transfusion History of anxiety and PTSD Diarrhea, resolved PLAN: Continue current cardiac medications Continue Coumadin Encourage incentive spirometry Post operative management per CT surgery Infectious disease following her antibiotics Further recommendations based on clinical course Nurse practitioner note has been reviewed by physician. Signing provider agrees with the documented findings, assessment, and plan of care. Objective - Vital Signs Vital signs: Vital Signs Temp 98.1 F 02/24/22 08:32 Pulse 89 02/24/22 08:32 Resp 17 02/24/22 08:32 BP 132/81 02/24/22 08:32 Pulse Ox 98 02/24/22 08:32 FiO2 35 02/22/22 04:00 Intake & Output 02/23/22 02/24/22 02/24/22 18:59 06:59 18:59 Intake Total 310 600 120 Output Total 1550 1500 1175 Balance -1240 -900 -1055 Weight 74.9 kg Intake: IV 10 100 Cefepime 2 gm In Sodium 100 Chloride 0.9% 100 ml @ 25 mls/hr IVPB Q8HR [facility] Rx# :[id number] Lactated Ringers 1,000 ml 10 @ 20 mls/hr IV .Q24H [facility] Rx#:[id number] Oral 300 500 120 Output: Urine 1550 1500 1175 Other: Voiding Method Toilet Toilet # Voids 2 # Bowel Movements 1 ABP, PAP, CO, CI - Last Documented Arterial Blood Pressure 137/59 Pulmonary Artery Pressure 26/8 Cardiac Output 6.5 Cardiac Index 3.5 - Labs CBC & Chem 7: 02/24/22 09:15 02/24/22 09:15 Labs: Abnormal Lab Results - Last 24 Hours (Table) 02/23/22 02/23/22 02/23/22 Range/Units 11:52 17:37 19:59 RBC (3.80-5.40) m/uL Hgb (11.4-16.0) gm/dL Hct (34.0-46.0) % RDW (11.5-15.5) % Lymphocytes # (1.0-4.8) k/uL PT (9.0-12.0) sec BUN (7-17) mg/dL Glucose (74-99) mg/dL POC Glucose (mg/dL) 114 H 147 H 131 H (70-110) mg/dL Calcium (8.4-10.2) mg/dL Total Protein (6.3-8.2) g/dL Albumin (3.5-5.0) g/dL 02/24/22 02/24/22 02/24/22 Range/Units 06:09 09:15 09:15 RBC 2.71 L (3.80-5.40) m/uL Hgb 7.1 L (11.4-16.0) gm/dL Hct 22.9 L (34.0-46.0) % RDW 19.8 H (11.5-15.5) % Lymphocytes # 0.4 L (1.0-4.8) k/uL PT 12.2 H (9.0-12.0) sec BUN (7-17) mg/dL Glucose (74-99) mg/dL POC Glucose (mg/dL) 112 H (70-110) mg/dL Calcium (8.4-10.2) mg/dL Total Protein (6.3-8.2) g/dL Albumin (3.5-5.0) g/dL 02/24/22 Range/Units 09:15 RBC (3.80-5.40) m/uL Hgb (11.4-16.0) gm/dL Hct (34.0-46.0) % RDW (11.5-15.5) % Lymphocytes # (1.0-4.8) k/uL PT (9.0-12.0) sec BUN 21 H (7-17) mg/dL Glucose 139 H (74-99) mg/dL POC Glucose (mg/dL) (70-110) mg/dL Calcium 7.7 L (8.4-10.2) mg/dL Total Protein 5.7 L (6.3-8.2) g/dL Albumin 2.5 L (3.5-5.0) g/dL
--- NOTE | 2022-02-24 13:24 | P.PN ---
Subjective Progress Note Date: 02/24/22 Principal diagnosis: [place] valve endocarditis. On 02/20/2022 patient seen in follow-up in intensive care unit, she is postoperative day #2, status post aortic valve replacement, with the mechanical aortic valve, patch closure of the aortotomy with involving pericardium, and de bridement of some annular infected tissue as well as left atrial appendage ligation. Patient is awake and alert, she was successfully weaned and extubated from the mechanical ventilator yesterday on 02/19/2022. She is breathing comfortably, room air pulse ox is 94-96%, she is afebrile, hemodynamically she is stable, she is on lactated Ringer's at a rate of 20 ML per hour, and antibiotics with cefepime, no vasopressor support. Yesterday she had another right-sided chest tube placed by CT surgery team. Currently has [address], one mediastinal, 1 left pleural/mediastinal, 1 right pleural, and one right pleural mediastinal chest tubes, no air leak noted. Still draining serosanguineous output, with at least output from the mediastinal chest tube. Today's chest x-ray showing postsurgical changes and streaky atelectasis in the right mid and lower lung. Patient is only achieving 300 mL on the incentive spirometer, she is having significant postsurgical pain. She is receiving pain medications. Patient has been up out of bed in the chair, tolerated activity fairly well. Urinary catheter is in place, patient is producing urine in the order of 20-30 ML per hour. She has been started on diuretics by CT surgery. Today's labs have been reviewed, white blood cell count is 8.4, hemoglobin is 8.3, platelet count is 152, sodium is 135, potassium is 4.5, chloride is 109, C O2 is 18, BUN is 30 creatinine is 1.11. Progress note dated 02/21/2022. This is a 36-year-old female who is postoperative day #3, status post aortic valve replacement with a mechanical aortic valve, as well as left atrial appendage ligation. The patient is currently on room air. The patient is g etting lactated Ringer's at 20 mL an hour. She's had a uneventful night according to the nurses. Labs today include a white count 6.8, hemoglobin 8.3, hematocrit 26, and platelet count 273,000. Sodium 132, potassium 4.4, chlorides 105, CO2 19, anion gap 8, BUN 35, and creatinine 1.12. Albumin is 2.3. Previous blood cultures from February 09 were positive for Serratia marcescens. Chest x- ray shows some cardiomegaly, with mild vascular congestion. Progress note dated 02/22/2022. 36-year-old female postop day #4, status post aortic valve replacement with a mechanical aortic valve, as well as left atrial appendage ligation, for [place] valve endocarditis, secondary to Serratia. Currently, the patient's doing well. She seen today in room 267. She is on room air. No IV fluids. She was a ctually walking the hallway when I saw her. She had no complaints, anion uneventful night. White count 5.6, hemoglobin 7.8, hematocrit 24, and platelet count 185,000. PT 11.4, INR 1.1. Recent blood cultures, are negative. Previous blood cultures from February 09 showed Serratia marcescens. Chest x-ray shows some cardiomegaly, mild fluid overload, and some bilateral infiltrates. Progress note dated 02/23/2022. Postop day #5, status post aortic valve replacement with mechanical aortic valve, and this 36-year-old female, who had [place] valve endocarditis, secondary to Serratia. The patient also had ligation of her left atrial appendage. Currently, she is on room air. She's not requiring any IV fluids. She is an overflow patient in the intensive care unit. She's doing very well. She's been walking up and down the unit, without difficulty. Recent blood cultures are currently negative. White count 5, hemoglobin 8, hematocrit 24.6, and platelet count 199,000. Sodium 137, potassium 4.5, chlorides 109, CO2 21, BUN 26, creatinine 0.78. Chest x-ray shows some postsurgical changes only. Progress note dated 02/24/2022. Postop day #6, status post aortic valve replacement with a mechanical aortic valve, for [place] valve endocarditis secondary to Serratia marcescens. Currently, the patient continues on cefepime. She's on room air. She's not receiving any IV fluids. She generally feels well. Her INR is not yet therapeutic. White count 4.3, hemoglobin 7.1, hematocrit 22.9, platelet count 291,000. Sodium potassium chloride CO2 all normal. Anion gap normal. BUN 21, and creatinine 0.7. Albumin is 2.5. Chest x-ray shows some cardiomegaly, small effusions, and some atelectasis at the left lung base. Objective - Vital Signs Vital signs: Vital Signs Temp 97.7 F 02/24/22 11:57 Pulse 77 02/24/22 11:57 Resp 17 02/24/22 11:57 BP 119/77 02/24/22 11:57 Pulse Ox 96 02/24/22 11:57 FiO2 35 02/22/22 04:00 Intake & Output 02/23/22 02/24/22 02/24/22 18:59 06:59 18:59 Intake Total 310 600 120 Output Total 1550 1500 1179 Balance -1240 -900 -1059 Weight 74.9 kg Intake: IV 10 100 Cefepime 2 gm In Sodium 100 Chloride 0.9% 100 ml @ 25 mls/hr IVPB Q8HR [facility] Rx# :[id number] Lactated Ringers 1,000 ml 10 @ 20 mls/hr IV .Q24H [facility] Rx#:[id number] Oral 300 500 120 Output: Urine 1550 1500 1175 Stool 4 Other: Voiding Method Toilet Toilet # Voids 2 # Bowel Movements 1 ABP, PAP, CO, CI - Last Documented Arterial Blood Pressure 137/59 Pulmonary Artery Pressure 26/8 Cardiac Output 6.5 Cardiac Index 3.5 - Exam No acute distress, oriented 3. Currently on room air. HEENT examination is grossly unremarkable. Neck supple. Full range of motion. No adenopathy thyromegaly or neck vein distention. Cardiovascular examination reveals regular rhythm rate. S1-S2 normal. No S3 or S4. No discernible murmur noted. Heart rate 77 bpm. Lungs reveal mostly clear breath sounds. Minimal scattered rhonchi. No wheezes or crackles. Breath sounds are equal bilaterally. Room air saturation is 96 %. Abdomen soft bowel sounds are heard. No masses or tenderness. Extremities are intact. No cyanosis clubbing or edema. Skin is without rash or lesion. Neurologic examination is brief but nonfocal. - Labs CBC & Chem 7: 02/24/22 09:15 02/24/22 09:15 Labs: Abnormal Lab Results - Last 24 Hours (Table) 02/23/22 02/23/22 02/24/22 Range/Units 17:37 19:59 06:09 RBC (3.80-5.40) m/uL Hgb (11.4-16.0) gm/dL Hct (34.0-46.0) % RDW (11.5-15.5) % Lymphocytes # (1.0-4.8) k/uL PT (9.0-12.0) sec BUN (7-17) mg/dL Glucose (74-99) mg/dL POC Glucose (mg/dL) 147 H 131 H 112 H (70-110) mg/dL Calcium (8.4-10.2) mg/dL Total Protein (6.3-8.2) g/dL Albumin (3.5-5.0) g/dL 02/24/22 02/24/22 02/24/22 Range/Units 09:15 09:15 09:15 RBC 2.71 L (3.80-5.40) m/uL Hgb 7.1 L (11.4-16.0) gm/dL Hct 22.9 L (34.0-46.0) % RDW 19.8 H (11.5-15.5) % Lymphocytes # 0.4 L (1.0-4.8) k/uL PT 12.2 H (9.0-12.0) sec BUN 21 H (7-17) mg/dL Glucose 139 H (74-99) mg/dL POC Glucose (mg/dL) (70-110) mg/dL Calcium 7.7 L (8.4-10.2) mg/dL Total Protein 5.7 L (6.3-8.2) g/dL Albumin 2.5 L (3.5-5.0) g/dL Assessment and Plan Assessment: Aortic valve endocarditis, secondary to Serratia marcescens. Postop day #5, status post aortic valve replacement. Severe aortic regurgitation, secondary to above. Routine postoperative ventilator management, with extubation on 02/19/2022. Acute blood loss anemia. Acute pulmonary edema. Plan: Plan dated 02/21/2022. The patient continues to improve. She's been weaned down to room air. She's getting lactated Ringer's at 20 mL an hour. We encouraged to deep breathe, cough, and clear any secretions. In addition, we recommend ongoing use of the incentive spirometer, every hour. We will continue to follow. She continues on GI and DVT prophylaxis. She continues on antibiotics. Overall prognosis remains guarded. We'll continue to follow make recommendations where appropriate. Plan dated 02/22/2022. The patient is doing very well. The patient's on room air. No IV fluids. Labs, x-rays, and medications are reviewed. Most recent blood cultures are negative. The patient remains on cefepime. We will continue to follow. In my opinion, the patient is stable for transfer out of the intensive care unit. No additional recommendations are made. Prognosis is certainly very guarded. She continues on GI and DVT prophylaxis. Plan dated 02/23/2022. The patient is seen again in room 267. The patient's on room air. She's not re ceiving any IV fluids. The patient is doing very well. We will continue to follow. She continues to use incentive spirometer. Her respiratory status and her hemodynamic status is very stable. We will continue with GI and DVT prophylaxis. She remains on cefepime. Prognosis is guarded. Plan dated 02/24/2022. Currently, the patient remains on cefepime for her Serratia infection. She is postop day #6. She's doing well. She's on room air. She's not on any IV fluids. We will continue to follow the patient and make recommendations along the way. Prognosis is certainly guarded. Respiratory status is stable. Hemodynamic status is stable. Discharge will be determined by infectious di hilles, and cardiothoracic surgery. Time with Patient: Less than 30
--- NOTE | 2022-02-24 15:49 | P.PN ---
Subjective Progress Note Date: 02/20/22 Principal diagnosis: Gram-negative bacteremia and aortic valve endocarditis Patient is a 36 year female presenting to the hospital with acute respiratory failure in this patient to have evidence of gram-negative bacteremia and there was concern for vegetation on the aortic valve , patient did have extension of the infected tooth and colonoscopy as a part of preparation for the aortic valve replacement which was completed 02/18/2022 on today's evaluation that is 02/20/2022, ,The patient remains to be afebrile, the patient is hemodynamically stable not requiring any pressor support, the patient is breathing comfortably on room air, patient is chest pain is currently controlled denies any worsening cough or sputum production no abdominal pain no diarrhea Objective - Vital Signs Vital signs: Vital Signs Temp 98.2 F 02/20/22 09:00 Pulse 81 02/20/22 11:44 Resp 34 H 02/20/22 11:00 BP 122/71 02/20/22 09:00 Pulse Ox 98 02/20/22 11:00 FiO2 35 02/19/22 14:00 Intake & Output 02/19/22 02/20/22 02/20/22 18:59 06:59 18:59 Intake Total 9191.472 3718.477 725 Output Total 1485 1070 470 Balance 63.025 567.477 255 Weight 76.8 kg Intake: IV 764 908 365 ACETAMINOPHEN IV (For NPO 100 ) 1,000 mg In Empty Bag 1 bag @ 400 mls/hr IVPB Q6H [facility] Rx#:[id number] CO/CI 120 100 Cefepime 2 gm In Sodium 100 100 Chloride 0.9% 100 ml @ 25 mls/hr IVPB Q8HR [facility] Rx# :[id number] Lactated Ringers 1,000 ml 545 600 120 @ 20 mls/hr IV .Q24H [facility] Rx#:[id number] NS Pressure Tubing 99 108 45 Intake, IV Titration 305.025 9.477 Amount Dexmedetomidine/0.9% NaCl 127.236 (Pmx) 400 mcg In Empty Bag 1 bag @ 0.2 MCG/KG/HR 3.68 mls/hr IV .Q24H [facility] Rx#:[id number] Insulin Regular 100 unit 1.591 9.477 In Sodium Chloride 0.9% 100 ml @ Per Protocol IV .Q0M [facility] Rx#:[id number] propofoL 1,000 mg In 176.198 Empty Bag 1 bag @ Titrate IV .Q0M [facility] Rx#: [id number] Oral 200 720 360 Blood Product 279 Rc Pheresis As-3 Unit 279 [id number] Output: Chest Tube Drainage 1010 590 120 Chest Tube Left Pleural/ 200 200 50 Mediastinal Chest Tube Mediastinal 20 10 0 Chest Tube Right 690 290 20 Chest Tube Right Right 100 90 50 Pleural/Mediastinal Urine 475 480 350 Other: Voiding Method Indwelling Catheter Indwelling Catheter Indwelling Catheter ABP, PAP, CO, CI - Last Documented Arterial Blood Pressure 118/66 Pulmonary Artery Pressure 26/8 Cardiac Output 6.5 Cardiac Index 3.5 - Exam GENERAL DESCRIPTION: Middle-aged female lying in bed in no distress RESPIRATORY SYSTEM: Unlabored breathing , decreased breath sounds at bases HEART: S1 S2 regular rate and rhythm , ABDOMEN: Soft , no tenderness EXTREMITIES: No edema feet - Labs CBC & Chem 7: 02/24/22 09:15 02/24/22 09:15 Labs: Abnormal Lab Results - Last 24 Hours (Table) 02/19/22 02/19/22 02/19/22 Range/Units 13:16 13:56 15:16 RBC (3.80-5.40) m/uL Hgb (11.4-16.0) gm/dL Hct (34.0-46.0) % RDW (11.5-15.5) % Lymphocytes # (1.0-4.8) k/uL ABG O2 Saturation 97.1 H (94-97) % Sodium (137-145) mmol/L Chloride (98-107) mmol/L Carbon Dioxide (22-30) mmol/L BUN (7-17) mg/dL Creatinine (0.52-1.04) mg/dL Glucose (74-99) mg/dL POC Glucose (mg/dL) 112 H 124 H (70-110) mg/dL Calcium (8.4-10.2) mg/dL AST (14-36) U/L Total Protein (6.3-8.2) g/dL Albumin (3.5-5.0) g/dL 02/19/22 02/19/22 02/19/22 Range/Units 16:47 18:35 20:17 RBC (3.80-5.40) m/uL Hgb (11.4-16.0) gm/dL Hct (34.0-46.0) % RDW (11.5-15.5) % Lymphocytes # (1.0-4.8) k/uL ABG O2 Saturation (94-97) % Sodium (137-145) mmol/L Chloride (98-107) mmol/L Carbon Dioxide (22-30) mmol/L BUN (7-17) mg/dL Creatinine (0.52-1.04) mg/dL Glucose (74-99) mg/dL POC Glucose (mg/dL) 129 H 125 H 125 H (70-110) mg/dL Calcium (8.4-10.2) mg/dL AST (14-36) U/L Total Protein (6.3-8.2) g/dL Albumin (3.5-5.0) g/dL 02/19/22 02/20/22 02/20/22 Range/Units 21:57 00:13 02:06 RBC (3.80-5.40) m/uL Hgb (11.4-16.0) gm/dL Hct (34.0-46.0) % RDW (11.5-15.5) % Lymphocytes # (1.0-4.8) k/uL ABG O2 Saturation (94-97) % Sodium (137-145) mmol/L Chloride (98-107) mmol/L Carbon Dioxide (22-30) mmol/L BUN (7-17) mg/dL Creatinine (0.52-1.04) mg/dL Glucose (74-99) mg/dL POC Glucose (mg/dL) 126 H 120 H 117 H (70-110) mg/dL Calcium (8.4-10.2) mg/dL AST (14-36) U/L Total Protein (6.3-8.2) g/dL Albumin (3.5-5.0) g/dL 02/20/22 02/20/22 02/20/22 Range/Units 04:10 04:10 04:12 RBC 2.98 L (3.80-5.40) m/uL Hgb 8.3 L (11.4-16.0) gm/dL Hct 24.8 L (34.0-46.0) % RDW 18.8 H (11.5-15.5) % Lymphocytes # 0.5 L (1.0-4.8) k/uL ABG O2 Saturation (94-97) % Sodium 135 L (137-145) mmol/L Chloride 109 H (98-107) mmol/L Carbon Dioxide 18 L (22-30) mmol/L BUN 30 H (7-17) mg/dL Creatinine 1.11 H (0.52-1.04) mg/dL Glucose 116 H (74-99) mg/dL POC Glucose (mg/dL) 123 H (70-110) mg/dL Calcium 7.7 L (8.4-10.2) mg/dL AST 38 H (14-36) U/L Total Protein 4.7 L (6.3-8.2) g/dL Albumin 2.1 L (3.5-5.0) g/dL 02/20/22 02/20/22 Range/Units 06:04 11:39 RBC (3.80-5.40) m/uL Hgb (11.4-16.0) gm/dL Hct (34.0-46.0) % RDW (11.5-15.5) % Lymphocytes # (1.0-4.8) k/uL ABG O2 Saturation (94-97) % Sodium (137-145) mmol/L Chloride (98-107) mmol/L Carbon Dioxide (22-30) mmol/L BUN (7-17) mg/dL Creatinine (0.52-1.04) mg/dL Glucose (74-99) mg/dL POC Glucose (mg/dL) 134 H 123 H (70-110) mg/dL Calcium (8.4-10.2) mg/dL AST (14-36) U/L Total Protein (6.3-8.2) g/dL Albumin (3.5-5.0) g/dL Microbiology - Last 24 Hours (Table) 02/18/22 12:01 Anaerobic Culture - Preliminary Heart Valve 02/18/22 12:01 Gram Stain - Preliminary Heart Valve Tissue Culture - Preliminary Assessment and Plan (1) Sepsis Current Visit: Yes Status: Acute Code(s): A41.9 - SEPSIS, UNSPECIFIED ORGANISM SNOMED Code(s): 42473658 Plan: 1patient presented to hospital with sepsis in this patient did have a fever tachycardia tachypnea with evidence of vegetation on aortic wall likely secondary to endocarditis, blood culture has been finalized and Serratia from her repeat blood culture had been negative as 2-patient is status post aortic valve replacment surgery on 02/18/2022 2 patient has shown clinical improvement and will continue with the cefepime monitoring clinical course closely
--- NOTE | 2022-02-24 15:50 | P.PN ---
Subjective Progress Note Date: 02/21/22 Principal diagnosis: Gram-negative bacteremia and aortic valve endocarditis Patient is a 36 year female presenting to the hospital with acute respiratory failure in this patient to have evidence of gram-negative bacteremia and there was concern for vegetation on the aortic valve , patient did have extension of the infected tooth and colonoscopy as a part of preparation for the aortic valve replacement which was completed 02/18/2022 on today's evaluation that is 02/21/2022, ,The patient continues to be afebrile, the patient is breathing comfortably on room air, patient is chest pain is currently controlled denies any worsening cough or sputum production no abdominal pain no diarrhea Objective - Vital Signs Vital signs: Vital Signs Temp 97.6 F 02/21/22 08:00 Pulse 89 02/21/22 15:00 Resp 30 H 02/21/22 15:00 BP 122/71 02/21/22 15:00 Pulse Ox 99 02/21/22 15:00 FiO2 35 02/19/22 14:00 Intake & Output 02/20/22 02/21/22 02/21/22 18:59 06:59 18:59 Intake Total 1045 1004 554 Output Total 775 940 960 Balance 270 64 -406 Weight 76.8 kg 77.9 kg Intake: IV 565 604 234 ACETAMINOPHEN IV (For NPO 200 200 ) 1,000 mg In Empty Bag 1 bag @ 400 mls/hr IVPB Q6H [facility] Rx#:[id number] Cefepime 2 gm In Sodium 100 100 Chloride 0.9% 100 ml @ 25 mls/hr IVPB Q8HR [facility] Rx# :[id number] Lactated Ringers 1,000 ml 190 220 180 @ 20 mls/hr IV .Q24H [facility] Rx#:[id number] NS Pressure Tubing 75 84 54 Oral 480 400 320 Output: Chest Tube Drainage 150 90 0 Chest Tube Left Pleural/ 50 0 0 Mediastinal Chest Tube Mediastinal 0 Chest Tube Right 20 Chest Tube Right Right 80 90 0 Pleural/Mediastinal Urine 625 850 960 Other: Voiding Method Indwelling Catheter Bedside Commode Bedside Commode # Voids 1 ABP, PAP, CO, CI - Last Documented Arterial Blood Pressure 116/61 Pulmonary Artery Pressure 26/8 Cardiac Output 6.5 Cardiac Index 3.5 - Exam GENERAL DESCRIPTION: Middle-aged female lying in bed in no distress RESPIRATORY SYSTEM: Unlabored breathing , decreased breath sounds at bases HEART: S1 S2 regular rate and rhythm , ABDOMEN: Soft , no tenderness EXTREMITIES: No edema feet - Labs CBC & Chem 7: 02/24/22 09:15 02/24/22 09:15 Labs: Abnormal Lab Results - Last 24 Hours (Table) 02/16/22 02/17/22 02/17/22 Range/Units 15:30 06:59 06:59 RBC (3.80-5.40) m/uL Hgb (11.4-16.0) gm/dL Hct (34.0-46.0) % RDW (11.5-15.5) % Lymphocytes # (1.0-4.8) k/uL ABG pCO2 (35-45) mmHg ABG HCO3 (21-25) mmol/L ABG O2 Saturation (94-97) % Sodium (137-145) mmol/L Carbon Dioxide (22-30) mmol/L BUN (7-17) mg/dL Creatinine (0.52-1.04) mg/dL Glucose (74-99) mg/dL POC Glucose (mg/dL) (70-110) mg/dL Calcium (8.4-10.2) mg/dL Total Protein (6.3-8.2) g/dL Albumin (3.5-5.0) g/dL Vit D 1,25-Dihydroxy 11 L (20 - 79) pg/mL Free Lambda LC, Quant 8.62 H (0.57-2.63) mg/dL Crossmatch See Detail 02/20/22 02/20/22 02/20/22 Range/Units 16:32 16:37 17:36 RBC (3.80-5.40) m/uL Hgb (11.4-16.0) gm/dL Hct (34.0-46.0) % RDW (11.5-15.5) % Lymphocytes # (1.0-4.8) k/uL ABG pCO2 33 L (35-45) mmHg ABG HCO3 19 L (21-25) mmol/L ABG O2 Saturation 98.2 H (94-97) % Sodium 133 L (137-145) mmol/L Carbon Dioxide 16 L (22-30) mmol/L BUN 33 H (7-17) mg/dL Creatinine 1.19 H (0.52-1.04) mg/dL Glucose 119 H (74-99) mg/dL POC Glucose (mg/dL) 120 H (70-110) mg/dL Calcium 7.7 L (8.4-10.2) mg/dL Total Protein (6.3-8.2) g/dL Albumin (3.5-5.0) g/dL Vit D 1,25-Dihydroxy (20 - 79) pg/mL Free Lambda LC, Quant (0.57-2.63) mg/dL Crossmatch 02/20/22 02/20/22 02/21/22 Range/Units 20:40 20:58 03:32 RBC 3.14 L (3.80-5.40) m/uL Hgb 8.3 L (11.4-16.0) gm/dL Hct 26.0 L (34.0-46.0) % RDW 18.7 H (11.5-15.5) % Lymphocytes # 0.5 L (1.0-4.8) k/uL ABG pCO2 33 L (35-45) mmHg ABG HCO3 20 L (21-25) mmol/L ABG O2 Saturation 98.2 H (94-97) % Sodium (137-145) mmol/L Carbon Dioxide (22-30) mmol/L BUN (7-17) mg/dL Creatinine (0.52-1.04) mg/dL Glucose (74-99) mg/dL POC Glucose (mg/dL) 138 H (70-110) mg/dL Calcium (8.4-10.2) mg/dL Total Protein (6.3-8.2) g/dL Albumin (3.5-5.0) g/dL Vit D 1,25-Dihydroxy (20 - 79) pg/mL Free Lambda LC, Quant (0.57-2.63) mg/dL Crossmatch 02/21/22 02/21/22 02/21/22 Range/Units 03:32 06:16 11:34 RBC (3.80-5.40) m/uL Hgb (11.4-16.0) gm/dL Hct (34.0-46.0) % RDW (11.5-15.5) % Lymphocytes # (1.0-4.8) k/uL ABG pCO2 (35-45) mmHg ABG HCO3 (21-25) mmol/L ABG O2 Saturation (94-97) % Sodium 132 L (137-145) mmol/L Carbon Dioxide 19 L (22-30) mmol/L BUN 35 H (7-17) mg/dL Creatinine 1.12 H (0.52-1.04) mg/dL Glucose 118 H (74-99) mg/dL POC Glucose (mg/dL) 114 H 121 H (70-110) mg/dL Calcium 7.6 L (8.4-10.2) mg/dL Total Protein 5.2 L (6.3-8.2) g/dL Albumin 2.3 L (3.5-5.0) g/dL Vit D 1,25-Dihydroxy (20 - 79) pg/mL Free Lambda LC, Quant (0.57-2.63) mg/dL Crossmatch Microbiology - Last 24 Hours (Table) 02/18/22 12:01 Gram Stain - Preliminary Heart Valve Tissue Culture - Preliminary Assessment and Plan (1) Sepsis Current Visit: Yes Status: Acute Code(s): A41.9 - SEPSIS, UNSPECIFIED ORGANISM SNOMED Code(s): 95087558 Plan: 1patient presented to hospital with sepsis in this patient did have a fever tachycardia tachypnea with evidence of vegetation on aortic wall likely secondary to endocarditis, blood culture has been finalized and Serratia from her repeat blood culture had been negative as 2-patient is status post aortic valve replacment surgery on 02/18/2022 2 patient condition slowly improving and the patient will continue with the cefepime monitoring clinical course closely Time with Patient: Less than 30
--- NOTE | 2022-02-24 15:52 | P.PN ---
Subjective Progress Note Date: 02/22/22 Principal diagnosis: Gram-negative bacteremia and aortic valve endocarditis Patient is a 36 year female presenting to the hospital with acute respiratory failure in this patient to have evidence of gram-negative bacteremia and there was concern for vegetation on the aortic valve , patient did have extension of the infected tooth and colonoscopy as a part of preparation for the aortic valve replacement which was completed 02/18/2022 on today's evaluation that is 02/22/2022, ,The patient denies any fever or any chills, the patient is breathing comfortably on room air, patient denies chest pain occasional cough no sputum production no abdominal pain no diarrhea Objective - Vital Signs Vital signs: Vital Signs Temp 98.4 F 02/22/22 08:00 Pulse 80 02/22/22 11:00 Resp 25 H 02/22/22 11:00 BP 119/76 02/22/22 11:00 Pulse Ox 100 02/22/22 11:00 FiO2 35 02/22/22 04:00 Intake & Output 02/21/22 02/22/22 02/22/22 18:59 06:59 18:59 Intake Total 580 746 300 Output Total 1600 2850 600 Balance -1020 -2104 -300 Weight 84.1 kg Intake: IV 260 146 Cefepime 2 gm In Sodium 100 Chloride 0.9% 100 ml @ 25 mls/hr IVPB Q8HR [facility] Rx# :[id number] Lactated Ringers 1,000 ml 200 40 @ 20 mls/hr IV .Q24H [facility] Rx#:[id number] NS Pressure Tubing 60 6 Oral 320 600 300 Output: Chest Tube Drainage 0 Chest Tube Left Pleural/ 0 Mediastinal Chest Tube Right Right 0 Pleural/Mediastinal Urine 1600 2850 600 Other: Voiding Method Bedside Commode Bedside Commode Bedside Commode ABP, PAP, CO, CI - Last Documented Arterial Blood Pressure 137/59 Pulmonary Artery Pressure 26/8 Cardiac Output 6.5 Cardiac Index 3.5 - Exam GENERAL DESCRIPTION: Middle-aged female lying in bed in no distress RESPIRATORY SYSTEM: Unlabored breathing , decreased breath sounds at bases HEART: S1 S2 regular rate and rhythm , ABDOMEN: Soft , no tenderness EXTREMITIES: No edema feet - Labs CBC & Chem 7: 02/24/22 09:15 02/24/22 09:15 Labs: Abnormal Lab Results - Last 24 Hours (Table) 0802/21/22 02/22/22 Range/Units 17:43 20:28 06:19 RBC (3.80-5.40) m/uL Hgb (11.4-16.0) gm/dL Hct (34.0-46.0) % RDW (11.5-15.5) % Lymphocytes # (1.0-4.8) k/uL Sodium (137-145) mmol/L Carbon Dioxide (22-30) mmol/L BUN (7-17) mg/dL Glucose (74-99) mg/dL POC Glucose (mg/dL) 128 H 150 H 122 H (70-110) mg/dL Calcium (8.4-10.2) mg/dL AST (14-36) U/L Total Protein (6.3-8.2) g/dL Albumin (3.5-5.0) g/dL 02/22/22 02/22/22 Range/Units 06:25 06:25 RBC 2.88 L (3.80-5.40) m/uL Hgb 7.8 L (11.4-16.0) gm/dL Hct 24.0 L (34.0-46.0) % RDW 19.0 H (11.5-15.5) % Lymphocytes # 0.5 L (1.0-4.8) k/uL Sodium 134 L (137-145) mmol/L Carbon Dioxide 20 L (22-30) mmol/L BUN 32 H (7-17) mg/dL Glucose 112 H (74-99) mg/dL POC Glucose (mg/dL) (70-110) mg/dL Calcium 7.3 L (8.4-10.2) mg/dL AST 40 H (14-36) U/L Total Protein 5.3 L (6.3-8.2) g/dL Albumin 2.3 L (3.5-5.0) g/dL Microbiology - Last 24 Hours (Table) 02/18/22 12:01 Gram Stain - Final Heart Valve Tissue Culture - Final Assessment and Plan (1) Sepsis Current Visit: Yes Status: Acute Code(s): A41.9 - SEPSIS, UNSPECIFIED ORGANISM SNOMED Code(s): 67149822 Plan: 1patient presented to hospital with sepsis in this patient did have a fever tachycardia tachypnea with evidence of vegetation on aortic wall likely secondary to endocarditis, blood culture has been finalized and Serratia from her repeat blood culture had been negative as 2-patient is status post aortic valve replacment surgery on 02/18/2022 , OR culture has been negative so for 2 patient has shown clinical improvement and will continue with the cefepime case assistant working on outpatient IV antibiotic arrangement Time with Patient: Less than 30
--- NOTE | 2022-02-24 15:53 | P.PN ---
Subjective Progress Note Date: 02/23/22 Principal diagnosis: Gram-negative bacteremia and aortic valve endocarditis Patient is a 36 year female presenting to the hospital with acute respiratory failure in this patient to have evidence of gram-negative bacteremia and there was concern for vegetation on the aortic valve , patient did have extension of the infected tooth and colonoscopy as a part of preparation for the aortic valve replacement which was completed 02/18/2022 on today's evaluation that is 02/23/2022, ,The patient remains to be afebrile, the patient is breathing comfortably on room air, patient denies chest pain shortness of breath or cough, the patient denies any abdominal pain and no raúl rrhea Objective - Vital Signs Vital signs: Vital Signs Temp 98.1 F 02/23/22 08:00 Pulse 75 02/23/22 11:00 Resp 30 H 02/23/22 07:00 BP 129/82 02/23/22 07:00 Pulse Ox 95 02/23/22 06:00 FiO2 35 02/22/22 04:00 Intake & Output 02/22/22 02/23/22 02/23/22 18:59 06:59 18:59 Intake Total 720 820 10 Output Total 1600 1500 500 Balance -097 -632 -490 Weight 79.5 kg 79.5 kg Intake: IV 180 10 Cefepime 2 gm In Sodium 100 Chloride 0.9% 100 ml @ 25 mls/hr IVPB Q8HR [facility] Rx# :[id number] Lactated Ringers 1,000 ml 80 10 @ 20 mls/hr IV .Q24H [facility] Rx#:[id number] Oral 720 640 Output: Urine 1600 1500 500 Other: Voiding Method Bedside Commode Bedside Commode # Voids 2 # Bowel Movements 1 1 1 ABP, PAP, CO, CI - Last Documented Arterial Blood Pressure 137/59 Pulmonary Artery Pressure 26/8 Cardiac Output 6.5 Cardiac Index 3.5 - Exam GENERAL DESCRIPTION: Middle-aged female lying in bed in no distress RESPIRATORY SYSTEM: Unlabored breathing , decreased breath sounds at bases HEART: S1 S2 regular rate and rhythm , ABDOMEN: Soft , no tenderness EXTREMITIES: No edema feet - Labs CBC & Chem 7: 02/24/22 09:15 02/24/22 09:15 Labs: Abnormal Lab Results - Last 24 Hours (Table) 02/16/22 02/22/22 02/22/22 Range/Units 15:30 16:13 19:59 RBC (3.80-5.40) m/uL Hgb (11.4-16.0) gm/dL Hct (34.0-46.0) % RDW (11.5-15.5) % Sodium (137-145) mmol/L Chloride (98-107) mmol/L Carbon Dioxide (22-30) mmol/L BUN (7-17) mg/dL Glucose (74-99) mg/dL POC Glucose (mg/dL) 144 H 151 H (70-110) mg/dL Calcium (8.4-10.2) mg/dL AST (14-36) U/L Total Protein (6.3-8.2) g/dL Albumin (3.5-5.0) g/dL Albumin (PEP) 2.26 L (3.80-4.90) g/dL Fqfvu-[id number]-Rijfwktxu 0.70 H (0.10-0.40) g/dL Beta Globulins 0.57 L (0.60-1.30) g/dL Gamma Globulins 1.67 H (0.70-1.50) g/dL 02/22/22 02/23/22 02/23/22 Range/Units 20:07 06:17 06:17 RBC 2.94 L (3.80-5.40) m/uL Hgb 8.0 L (11.4-16.0) gm/dL Hct 24.6 L (34.0-46.0) % RDW 19.3 H (11.5-15.5) % Sodium 135 L (137-145) mmol/L Chloride 109 H (98-107) mmol/L Carbon Dioxide 21 L 21 L (22-30) mmol/L BUN 26 H (7-17) mg/dL Glucose 108 H (74-99) mg/dL POC Glucose (mg/dL) (70-110) mg/dL Calcium 7.6 L (8.4-10.2) mg/dL AST 40 H (14-36) U/L Total Protein 5.8 L (6.3-8.2) g/dL Albumin 2.5 L (3.5-5.0) g/dL Albumin (PEP) (3.80-4.90) g/dL Cppvx-7-Wenbtpnui (0.10-0.40) g/dL Beta Globulins (0.60-1.30) g/dL Gamma Globulins (0.70-1.50) g/dL 02/23/22 Range/Units 11:52 RBC (3.80-5.40) m/uL Hgb (11.4-16.0) gm/dL Hct (34.0-46.0) % RDW (11.5-15.5) % Sodium (137-145) mmol/L Chloride (98-107) mmol/L Carbon Dioxide (22-30) mmol/L BUN (7-17) mg/dL Glucose (74-99) mg/dL POC Glucose (mg/dL) 114 H (70-110) mg/dL Calcium (8.4-10.2) mg/dL AST (14-36) U/L Total Protein (6.3-8.2) g/dL Albumin (3.5-5.0) g/dL Albumin (PEP) (3.80-4.90) g/dL Wwqca-4-Cdafghfsg (0.10-0.40) g/dL Beta Globulins (0.60-1.30) g/dL Gamma Globulins (0.70-1.50) g/dL Microbiology - Last 24 Hours (Table) 02/18/22 12:01 Anaerobic Culture - Final Heart Valve 02/18/22 12:01 Gram Stain - Final Heart Valve Tissue Culture - Final Assessment and Plan (1) Sepsis Current Visit: Yes Status: Acute Code(s): A41.9 - SEPSIS, UNSPECIFIED ORGANISM SNOMED Code(s): 23918300 Plan: 1patient presented to hospital with sepsis in this patient did have a fever tachycardia tachypnea with evidence of vegetation on aortic wall likely secondary to endocarditis, blood culture has been finalized and Serratia from her repeat blood culture had been negative as 2-patient is status post aortic valve replacment surgery on 02/18/2022 , OR culture has been negative so for 2 patient condition remains to be stable and is currently being treated with cefepime which the patient has been tolerating Time with Patient: Less than 30
--- NOTE | 2022-02-24 15:54 | P.PN ---
Subjective Progress Note Date: 02/24/22 Principal diagnosis: Gram-negative bacteremia and aortic valve endocarditis Patient is a 36 year female presenting to the hospital with acute respiratory failure in this patient to have evidence of gram-negative bacteremia and there was concern for vegetation on the aortic valve , patient did have extension of the infected tooth and colonoscopy as a part of preparation for the aortic valve replacement which was completed 02/18/2022 on today's evaluation that is 02/24/2022, the patient continues to be afebrile, the patient is breathing comfortably on room air, patient denies chest pain shortness of breath or cough, the patient denies any abdominal pain mention s light diarrhea Objective - Vital Signs Vital signs: Vital Signs Temp 97.7 F 02/24/22 11:57 Pulse 77 02/24/22 11:57 Resp 17 02/24/22 11:57 BP 119/77 02/24/22 11:57 Pulse Ox 96 02/24/22 11:57 FiO2 35 02/22/22 04:00 Intake & Output 02/23/22 02/24/22 02/24/22 18:59 06:59 18:59 Intake Total 310 600 120 Output Total 1550 1500 1175 Balance -1240 -900 -1055 Weight 74.9 kg Intake: IV 10 100 Cefepime 2 gm In Sodium 100 Chloride 0.9% 100 ml @ 25 mls/hr IVPB Q8HR [facility] Rx# :[id number] Lactated Ringers 1,000 ml 10 @ 20 mls/hr IV .Q24H [facility] Rx#:[id number] Oral 300 500 120 Output: Urine 1550 1500 1175 Other: Voiding Method Toilet Toilet # Voids 2 # Bowel Movements 1 ABP, PAP, CO, CI - Last Documented Arterial Blood Pressure 137/59 Pulmonary Artery Pressure 26/8 Cardiac Output 6.5 Cardiac Index 3.5 - Exam GENERAL DESCRIPTION: Middle-aged female lying in bed in no distress RESPIRATORY SYSTEM: Unlabored breathing , decreased breath sounds at bases HEART: S1 S2 regular rate and rhythm , ABDOMEN: Soft , no tenderness EXTREMITIES: No edema feet - Labs CBC & Chem 7: 02/24/22 09:15 02/24/22 09:15 Labs: Abnormal Lab Results - Last 24 Hours (Table) 02/23/22 02/23/22 02/24/22 Range/Units 17:37 19:59 06:09 RBC (3.80-5.40) m/uL Hgb (11.4-16.0) gm/dL Hct (34.0-46.0) % RDW (11.5-15.5) % Lymphocytes # (1.0-4.8) k/uL PT (9.0-12.0) sec BUN (7-17) mg/dL Glucose (74-99) mg/dL POC Glucose (mg/dL) 147 H 131 H 112 H (70-110) mg/dL Calcium (8.4-10.2) mg/dL Total Protein (6.3-8.2) g/dL Albumin (3.5-5.0) g/dL 02/24/22 02/24/22 02/24/22 Range/Units 09:15 09:15 09:15 RBC 2.71 L (3.80-5.40) m/uL Hgb 7.1 L (11.4-16.0) gm/dL Hct 22.9 L (34.0-46.0) % RDW 19.8 H (11.5-15.5) % Lymphocytes # 0.4 L (1.0-4.8) k/uL PT 12.2 H (9.0-12.0) sec BUN 21 H (7-17) mg/dL Glucose 139 H (74-99) mg/dL POC Glucose (mg/dL) (70-110) mg/dL Calcium 7.7 L (8.4-10.2) mg/dL Total Protein 5.7 L (6.3-8.2) g/dL Albumin 2.5 L (3.5-5.0) g/dL Assessment and Plan (1) Sepsis Current Visit: Yes Status: Acute Code(s): A41.9 - SEPSIS, UNSPECIFIED ORGANISM SNOMED Code(s): 50539661 Plan: 1patient presented to hospital with sepsis in this patient did have a fever tachycardia tachypnea with evidence of vegetation on aortic wall likely secondary to endocarditis, blood culture has been finalized and Serratia from her repeat blood culture had been negative as 2-patient is status post aortic valve replacment surgery on 02/18/2022 , OR culture has been negative so for 2 patient slowly clinically improving and will continue with the cefepime 2 g every 8 hours plan is for total of 6 weeks of antibiotics Time with Patient: Less than 30
[2022-02-24 17:03] LABS: Glucose,Whole Blood 144 mg/dL (70-110)
[2022-02-24] MEDS ORDERED: WARFARIN 5 MG TAB PO ONE (18:00)
[2022-02-24 19:51] LABS: Glucose,Whole Blood 141 mg/dL (70-110)
--- NOTE | 2022-02-24 20:52 | P.PN ---
Subjective Progress Note Date: 02/24/22 Objective - Vital Signs Vital signs: Vital Signs Temp 97.3 F L 02/24/22 20:09 Pulse 88 02/24/22 20:09 Resp 16 02/24/22 20:09 BP 134/74 02/24/22 20:09 Pulse Ox 98 02/24/22 20:09 FiO2 35 02/22/22 04:00 Intake & Output 02/24/22 02/24/22 02/25/22 06:59 18:59 06:59 Intake Total 600 478 Output Total 1500 1579 800 Balance -900 -1101 -800 Weight 74.9 kg Intake: IV 100 Cefepime 2 gm In Sodium 100 Chloride 0.9% 100 ml @ 25 mls/hr IVPB Q8HR [facility] Rx# :[id number] Oral 500 478 Output: Urine 1500 1575 800 Stool 4 Other: Voiding Method Toilet Toilet ABP, PAP, CO, CI - Last Documented Arterial Blood Pressure 137/59 Pulmonary Artery Pressure 26/8 Cardiac Output 6.5 Cardiac Index 3.5 - Exam - Constitutional General appearance: cooperative, no acute distress - EENT Eyes: EOMI, PERRLA ENT: NA/AT - Neck Neck: normal ROM - Respiratory Respiratory: bilateral: diminished - Cardiovascular Rhythm: regularly irregular - Labs CBC & Chem 7: 02/24/22 09:15 02/24/22 09:15 Labs: Abnormal Lab Results - Last 24 Hours (Table) 02/24/22 02/24/22 02/24/22 Range/Units 06:09 09:15 09:15 RBC 2.71 L (3.80-5.40) m/uL Hgb 7.1 L (11.4-16.0) gm/dL Hct 22.9 L (34.0-46.0) % RDW 19.8 H (11.5-15.5) % Lymphocytes # 0.4 L (1.0-4.8) k/uL PT 12.2 H (9.0-12.0) sec BUN (7-17) mg/dL Glucose (74-99) mg/dL POC Glucose (mg/dL) 112 H (70-110) mg/dL Calcium (8.4-10.2) mg/dL Total Protein (6.3-8.2) g/dL Albumin (3.5-5.0) g/dL 02/24/22 02/24/22 02/24/22 Range/Units 09:15 16:58 19:50 RBC (3.80-5.40) m/uL Hgb (11.4-16.0) gm/dL Hct (34.0-46.0) % RDW (11.5-15.5) % Lymphocytes # (1.0-4.8) k/uL PT (9.0-12.0) sec BUN 21 H (7-17) mg/dL Glucose 139 H (74-99) mg/dL POC Glucose (mg/dL) 144 H 141 H (70-110) mg/dL Calcium 7.7 L (8.4-10.2) mg/dL Total Protein 5.7 L (6.3-8.2) g/dL Albumin 2.5 L (3.5-5.0) g/dL Assessment and Plan (1) Bacteremia Current Visit: Yes Status: Acute Code(s): R78.81 - BACTEREMIA SNOMED Code(s): 4465502 (2) Pancytopenia Current Visit: Yes Status: Acute Code(s): D61.818 - OTHER PANCYTOPENIA SNOMED Code(s): 279700995 (3) Endocarditis Current Visit: Yes Status: Acute Code(s): I38 - ENDOCARDITIS, VALVE UNSPECIFIED SNOMED Code(s): 97090424 (4) Anxiety Current Visit: Yes Status: Acute Code(s): F41.9 - ANXIETY DISORDER, UNSP ECIFIED SNOMED Code(s): 96107776 (5) PTSD (post-traumatic stress disorder) Current Visit: Yes Status: Acute Code(s): F43.10 - POST-TRAUMATIC STRESS DISORDER, UNSPECIFIED SNOMED Code(s): 64833148 (6) Status post recent immunosuppressive therapy Current Visit: Yes Status: Acute Code(s): Z92.25 - PERSONAL HISTORY OF IMMUNOSUPPRESSION THERAPY SNOMED Code(s): 78362462 (7) Splenomegaly Current Visit: Yes Status: Acute Code(s): R16.1 - SPLENOMEGALY, NOT ELSEWHERE CLASSIFIED SNOMED Code(s): 57100162 Plan: Additional work-up ordered. PO Iron Await MMA Assessment and Plan (1) Bacteremia Narrative/Plan: Serratia Marcescens positive blood cultures, opportunist likely increased susceptibility due to recent prolonged corticosteroids after back injury Can be associated with endocarditis - CTS following and status post valve repair Current Visit: Yes Status: Acute Code(s): R78.81 - BACTEREMIA SNOMED Code(s): 5050045 (2) Pancytopenia Narrative/Plan: Recovering, Iron deficiency remains although refrain from Parental iron due to sepsis and systemic infection of rare opportunist infection Current Visit: Yes Status: Acute Code(s): D61.818 - OTHER PANCYTOPENIA SNOMED Code(s): 019444719 (3) Endocarditis Current Visit: Yes Status: Acute Code(s): I38 - ENDOCARDITIS, VALVE UNSPECIFIED SNOMED Code(s): 15832314 (4) Anxiety Current Visit: Yes Status: Acute Code(s): F41.9 - ANXIETY DISORDER, UNSPECIFIED SNOMED Code(s): 92045974 (5) PTSD (post-traumatic stress disorder) Current Visit: Yes Status: Acute Code(s): F43.10 - POST-TRAUMATIC STRESS DISORDER, UNSPECIFIED SNOMED Code(s): 73398136 (6) Status post recent immunosuppressive therapy Narrative/Plan: Prolonged corticosteroids with recent injury to back Current Visit: Yes Status: Acute Code(s): Z92.25 - PERSONAL HISTORY OF IMMUNOSUPPRESSION THERAPY SNOMED Code(s): 82727491 (7) Splenomegaly Current Visit: Yes Status: Acute Code(s): R16.1 - SPLENOMEGALY, NOT ELSEWHERE CLASSIFIED SNOMED Code(s): 73558101 Plan: MOnitor daily CBC Transfuse less than 7
[2022-02-25] MEDS: ACETAMINOPHEN TAB 325 MG TAB PO PRN ×5 (00:16→20:46)
[2022-02-25] MEDS: CEFEPIME 2 GM in SODIUM CHLORIDE 0.9% 100 ML IVPB SCH ×3 (00:17→20:50)
[2022-02-25 07:03] LABS: Glucose,Whole Blood 117 mg/dL (70-110)
[2022-02-25] MEDS: FERROUS SULFATE 325 MG TAB PO SCH ×2 (07:04→17:48)
[2022-02-25] MEDS: INSULIN ASPART (NovoLOG) 100 UNIT/ML VIAL SQ SCH ×4 (07:04→21:02)
[2022-02-25] MEDS: PANTOPRAZOLE 40 MG TABLET PO SCH ×2 (07:04→17:48)
--- NOTE | 2022-02-25 07:08 | XR ---
EXAMINATION TYPE: XR chest 1V portable DATE OF EXAM: 02/25/2022 6:30 AM COMPARISON: Chest radiograph from one day prior. TECHNIQUE: XR chest 1V portable Portable AP radiograph of the chest. CLINICAL INDICATION:Female, 36 years old with history of post op AVR; FINDINGS: Lungs/Pleura: Increasing right lower lobe airspace opacities with persistent left basilar airspace op acities. Right midlung streaky atelectasis/scarring again present. There is no evidence of pleural ef fusion, focal consolidation, or pneumothorax. Pulmonary vascularity: Unremarkable. Heart/mediastinum: Cardiomediastinal silhouette is enlarged and stable. Left atrial appendage occlusi on device is present. Post aortic valve repair changes. Musculoskeletal: No acute osseous pathology. Sternotomy changes present Lines/Tubes: Right-sided PICC line with distal tip at the cavoatrial junction. IMPRESSION: 1. Increasing right lower lobe airspace opacity which could represent developing pneumonia first atel ectasis. 2. Similar left lower lobe opacity. 3. Right PICC in appropriate position
[2022-02-25 09:20] LABS: Anisocytosis Moderate; HCT 21.4 % (34.0-46.0); Hypochromasia Moderate; MCH 27.9 pg (25.0-35.0); MCHC 32.7 g/dL (31.0-37.0); MCV 85.5 fL (80.0-100.0); Microcytosis Slight; Platelet Count 185 k/uL (150-450); Poikilocytosis Slight; RDW 20.6 % (11.5-15.5)
[2022-02-25 09:38] LABS: INR 1.3 (<1.2); Prothrombin Time 13.8 sec (9.0-12.0)
[2022-02-25 09:48] LABS: African American GFR (CKD) >90 (>60 ml/min/1.73 sqM); Anion Gap 7 mmol/L; Blood Urea Nitrogen 22 mg/dL (7-17); Calcium 7.6 mg/dL (8.4-10.2); Carbon Dioxide 25 mmol/L (22-30); Chloride 106 mmol/L (98-107); Glucose 107 mg/dL (74-99); Magnesium 1.3 mg/dL (1.6-2.3); Non-African American GFR(CKD) >90 (>60 ml/min/1.73 sqM); Potassium 4.5 mmol/L (3.5-5.1); Sodium 138 mmol/L (137-145)
[2022-02-25] MEDS: ASCORBIC ACID 500 MG TAB PO SCH ×2 (09:59→20:51)
[2022-02-25] MEDS: ASPIRIN 81 MG PO SCH (10:00)
[2022-02-25] MEDS: POTASSIUM CHLORIDE ER 10 MEQ TAB.ER.PRT PO SCH (10:00)
[2022-02-25] MEDS: FUROSEMIDE 10 MG/ML 4 ML VIAL IV SCH ×2 (10:00→17:48)
[2022-02-25] MEDS: METOPROLOL TARTRATE 25 MG TAB PO SCH ×2 (10:00→20:51)
[2022-02-25] MEDS: ATORVASTATIN 40 MG TAB PO SCH (10:00)
[2022-02-25] MEDS: CHOLESTYRAMINE (WITH SUGAR) 4 GM PACKET PO SCH ×2 (10:01→17:48)
[2022-02-25] MEDS: ESCITALOPRAM 5 MG TAB PO SCH (10:01)
[2022-02-25] MEDS: ENOXAPARIN 40 MG/0.4 ML SYRINGE SQ SCH (10:01)
--- NOTE | 2022-02-25 10:47 | P.PN ---
Subjective Progress Note Date: 02/25/22 PROGRESS NOTE The patient is a 36-year-old female who presented with progressive dyspnea, change in mental status requiring mechanical ventilation. She was febrile and had positive blood cultures. She was recently discharged from [facility] with diarrhea and positive blood cultures as well with change in mental status. Her echocardiogram performed yesterday showed possible aortic valve vegetations that was confirmed on the transesophageal echocardiogram with severe aortic regurgitation and a tricuspid aortic valve. She had moderate mitral regurgitation. Her echocardiogram at [facility] on January 25 showed a normal systolic function with trace aortic regurgitation and no mention of vegetations. She had at [facility] evidence of splenic infarct and colitis as well has severe anemia. She continues to be intubated, tachycardic at times. Her blood pressure is stable. The color of her urine is better. There is no evidence of malignant arrhythmia. She continues to be febrile. Her urinary output is good. Her blood cultures were positive for Se rratia Marcescens which is the same bacteria noted at [facility]. She was seen by the cardiovascular team yesterday. Her computed tomography scan of the abdomen showed moderately severe hepatosplenomegaly was bilateral enlargement of the kidneys. She had cardiomegaly with pleural effusion and basilar pulmonary infiltrate atelectasis. No suggestion of colitis was noted. February 11: The patient remains intubated and sedated, in sinus mechanism, hemodynamically stable on no vasopressors. She has good urinary output. There is no evidence of malignant arrhythmia. Her blood pressure were positive for Serratia marcescens. She is afebrile. Her echocardiogram showed severe aortic regurgitation with evidence of vegetation on a tricuspid aortic valve and question of ulceration noted. Her systolic function was 50-55%. On the echocardiogram performed at [facility] recently there is no documentation of the vegetation and she had trace AI. The patient is being evaluated to be transferred to tertiary care hospital for further treatment. February 12: The patient is extubated, hemodynamically stable, denies any chest discomfort, dizziness or palpitations. She continues to be in sinus mechanism. She had no evidence of atrial arrhythmia. She cannot recall the episode prior to admission. She denies any knowledge of valvular problem in the past. She denie s any history of IV drug abuse. She remains afebrile. Her urinary output has been stable. She received one dose of IV Lasix yesterday. Repeat blood culture from February 09 showed no growth after 48 hours. February 25: The patient feels well, she is sitting up in the chair, she denies any chest dis comfort, dizziness or palpitations. She is status post aortic valve replacement. She continues to be in sinus mechanism. She continues to be anemic. She is receiving IV antibiotics. 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 Medications: Lasix 40 mg IV twice a day, metoprolol 75 mg twice a day, Coumadin, aspirin once a day, Lipitor 40 mg daily PHYSICAL EXAMINATION: 36-year-old female alert and oriented Blood pressure 139/70 heart rate 70 LUNGS: Clear to auscultation with mild decrease in the breath sounds at the bases HEART: Regular rate and rhythm, S1, S2. Prosthetic aortic sound No S3. systolic ejection murmur 07/07 ABDOMEN: Soft, positive bowel sounds, no organomegaly EXTREMETIES: No edema LAB: Potassium 4.5, BUN 22, creatinine 0.75, hemoglobin 7, INR 1.3 IMPRESSION: 1. Aortic valve endocarditis status post aortic valve replacement, stable 2. Colitis and spleen infarct by CAT scan at [facility] 3. Respiratory failure, resolved 4. Change in mental status prior to admission related to the sepsis, resolved 5. Anemia, most likely related to the infectious process, improved 6. Abnormal renal functions, resolved PLAN: 1. Continue Coumadin until INR therapeutic 2. Increase physical activity 3. Incentive spirometry 4. Follow hemoglobin Objective - Vital Signs Vital signs: Vital Signs Temp 97.2 F L 02/25/22 04:00 Pulse 78 02/25/22 04:00 Resp 13 02/25/22 04:00 BP 139/76 02/25/22 04:00 Pulse Ox 99 02/25/22 04:00 FiO2 35 02/22/22 04:00 Intake & Output 02/24/22 02/25/22 02/25/22 18:59 06:59 18:59 Intake Total 478 290 240 Output Total 1579 2104 1100 Balance -1101 -1814 -860 Intake: IV 40 Sodium Chloride 0.9% 1, 40 000 ml @ 20 mls/hr IV . Q24H [facility] Rx#:[id number] Oral 478 250 240 Output: Urine 1575 2100 1100 Stool 4 4 Other: Voiding Method Toilet Toilet ABP, PAP, CO, CI - Last Documented Arterial Blood Pressure 137/59 Pulmonary Artery Pressure 26/8 Cardiac Output 6.5 Cardiac Index 3.5 - Labs CBC & Chem 7: 02/25/22 08:54 02/25/22 08:54 Labs: Abnormal Lab Results - Last 24 Hours (Table) 02/24/22 02/24/22 02/25/22 Range/Units 16:58 19:50 07:01 RBC (3.80-5.40) m/uL Hgb (11.4-16.0) gm/dL Hct (34.0-46.0) % RDW (11.5-15.5) % PT (9.0-12.0) sec INR (<1.2) BUN (7-17) mg/dL Glucose (74-99) mg/dL POC Glucose (mg/dL) 144 H 141 H 117 H (70-110) mg/dL Calcium (8.4-10.2) mg/dL Magnesium (1.6-2.3) mg/dL 02/25/22 02/25/22 02/25/22 Range/Units 08:54 08:54 08:54 RBC 2.50 L (3.80-5.40) m/uL Hgb 7.0 L (11.4-16.0) gm/dL Hct 21.4 L (34.0-46.0) % RDW 20.6 H (11.5-15.5) % PT 13.8 H (9.0-12.0) sec INR 1.3 H (<1.2) BUN 22 H (7-17) mg/dL Glucose 107 H (74-99) mg/dL POC Glucose (mg/dL) (70-110) mg/dL Calcium 7.6 L (8.4-10.2) mg/dL Magnesium 1.3 L (1.6-2.3) mg/dL
[2022-02-25] MEDS ORDERED: CALCIUM GLUCONATE IN NACL 2 GM in SALINE 1 100ML.BAG IVPB ONE (11:00)
--- NOTE | 2022-02-25 11:12 | P.PN ---
Subjective Progress Note Date: 02/25/22 Principal diagnosis: Aortic valve endocarditis with severe aortic valve regurgitation, possible root abscess, Serratia marcescens bacteremia, sepsis, acute hypoxic respiratory fail ure requiring mechanical ventilation, altered mental status, acute anemia, acute kidney injury with a peak creatinine of 1.31. Past medical history significant for bacteremia with blood cultures from [facility] positive for Serratia marcescens, recent history of colitis and splenomegaly likely splenic infarct, anxiety, PTSD with history of self mutilation. POD #7 Aortic valve replacement with 23 mm On-X mechanical aortic valve, patch closure of aortotomy with involving pericardium, debridement of some annular infected tissue in aortic outflow tract, ligation of left atrial appendage with 35 mm AtriCure clip. Postoperative acute blood loss anemia and thrombocytopenia, expected given her preop anemia, hemodilution and cardiopulmonary bypass. The patient was seen in follow-up today 02/25/2022 at her bedside on the cardiac stepdown unit. She denies any complaints of pain or shortness of breath at this time although is complaining of bouts of severe nausea which occurs around 8 PM the last 2 nights. She is contributing the nausea to taking the Coumadin. She denies any further complaints of diarrhea. Currently she is sitting up to the bedside chair, is awake, alert, oriented 3 and is in no acute apparent distress. Oxygen saturations are 99% on room air and she is achieving 1500 mL on her incentive spirometry with encouragement. Remote telemetry showing normal sinus rhythm heart rate 74 BPM. She remains on Lasix 40 mg IV twice a day and her urine output was 900 mL in the last 8 hours. She has been up ambulating in the cardiac stepdown unit hallway independently and tolerating well. She was given Coumadin 5 mg by mouth 1 yesterday for an INR of 1.1 and a PT of 12.2. Laboratory results this morning show a WBC count of 5.0, hemoglobin 7.0, hematocrit 21.4, platelets 185, . PT is 13.8 this morning INR is 1.3 and she will be given Coumadin 5 mg by mouth 1 today. She has been afebrile the last 24 hours. Right arm PICC line remains in place with current antibiotics cefepime 2 g IV piggyback every 8 hours managed by infectious disease. Most recent blood cultures from 02/11/2022 showed no growth and her heart valve Gram stain culture and anaerobic culture showed no growth. Aortic valve pathology demonstrated sclerotic and edematous valvular tissue with focal acute and chronic inflammation and associated fibrinous debris, negative for malignancy. Objective - Vital Signs Vital signs: Vital Signs Temp 97.2 F L 02/25/22 04:00 Pulse 78 02/25/22 04:00 Resp 13 02/25/22 04:00 BP 139/76 02/25/22 04:00 Pulse Ox 99 02/25/22 04:00 FiO2 35 02/22/22 04:00 Intake & Output 02/24/22 02/25/22 02/25/22 18:59 06:59 18:59 Intake Total 478 290 Output Total 1579 2104 Balance -1101 -1814 Intake: IV 40 Sodium Chloride 0.9% 1, 40 000 ml @ 20 mls/hr IV . Q24H [facility] Rx#:[id number] Oral 478 250 Output: Urine 1575 2100 Stool 4 4 Other: Voiding Method Toilet Toilet ABP, PAP, CO, CI - Last Documented Arterial Blood Pressure 137/59 Pulmonary Artery Pressure 26/8 Cardiac Output 6.5 Cardiac Index 3.5 - Exam CONSTITUTIONAL: Sitting up to the bedside chair on the cardiac stepdown unit, appears comfortable, cooperative, no apparent acute distress. HEENT: Neck is supple, no JVD, no lymphadenopathy. RESPIRATORY: Lungs sounds essentially clear throughout, diminished to his bilateral bases. Respirations are symmetrical and nonlabored. Currently oxygen saturations 99% on room air. Strong cough. Achieving 1500 mL on her incentive spirometry with much encouragement. CARDIOVASCULAR: Regular rhythm and rate. S1 and S2 present with mechanical valvular click, negative for S3, gallop or murmur. Sternum is stable. Palpab le peripheral pulses bilaterally, trace edema to her bilateral lower extremities. No calf pain or tenderness noted. Heart hugger in place and she is demonstrating appropriate use . Knee-high DAVI hose and sequential compression devices in place to her bilateral lower extremities. Remote telemetry showing normal sinus rhythm heart rate 74 BPM. GASTROINTESTINAL: Abdomen soft, nontender, nondistended. Active bowel sounds present 4 quadrants. Tolerating diet. No guarding or rigidity. Passing flatus. Denies nausea at this time. Bowel movement yesterday 02/24/2022. No diarrhea. GENITOURINARY: Continues to void. Urine output 900 mL in the last 8 hours. INTEGUMENTARY: Skin is warm and dry with no evidence of clubbing or cyanosis. Midline sternal incision clean dry and well approximated, covered with dry intact dressing. NEUROLOGIC: Cranial nerves II through XII intact. No focal deficits. MUSKULOSKELETAL: Able to move all extremities, strength equal bilaterally. PSYCHIATRIC: Alert and oriented to person place and time, appropriate affect, intact judgment and insight. - Allied health notes Allied health notes reviewed: nursing - Labs CBC & Chem 7: 02/25/22 08:54 02/25/22 08:54 Labs: Abnormal Lab Results - Last 24 Hours (Table) 02/24/22 02/24/22 02/24/22 Range/Units 09:15 09:15 09:15 RBC 2.71 L (3.80-5.40) m/uL Hgb 7.1 L (11.4-16.0) gm/dL Hct 22.9 L (34.0-46.0) % RDW 19.8 H (11.5-15.5) % Lymphocytes # 0.4 L (1.0-4.8) k/uL PT 12.2 H (9.0-12.0) sec BUN 21 H (7-17) mg/dL Glucose 139 H (74-99) mg/dL POC Glucose (mg/dL) (70-110) mg/dL Calcium 7.7 L (8.4-10.2) mg/dL Total Protein 5.7 L (6.3-8.2) g/dL Albumin 2.5 L (3.5-5.0) g/dL 02/24/22 02/24/22 02/25/22 Range/Units 16:58 19:50 07:01 RBC (3.80-5.40) m/uL Hgb (11.4-16.0) gm/dL Hct (34.0-46.0) % RDW (11.5-15.5) % Lymphocytes # (1.0-4.8) k/uL PT (9.0-12.0) sec BUN (7-17) mg/dL Glucose (74-99) mg/dL POC Glucose (mg/dL) 144 H 141 H 117 H (70-110) mg/dL Calcium (8.4-10.2) mg/dL Total Protein (6.3-8.2) g/dL Albumin (3.5-5.0) g/dL - Imaging and Cardiology Chest x-ray: report reviewed, image reviewed Assessment and Plan Assessment: 1. 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 Serratia bacteremia, sepsis on cefepime 2 g IV piggyback every 8 hours managed by infectious disease, blood cultures from 02/11/2022 showed no growth after 144 hours, aortic valve Gram stain cultures show no growth after 3 days, anaerobic culture results remain pending showing no anaerobes seen to date 3. Acute hypoxic respiratory failure requiring mechanical ventilation 4. Altered mental status this admission, resolved 5. Acute on chronic anemia, status post blood transfusion hemoglobin 8.3 today 02/20/2022 6. Acute kidney injury, BUN 32 and creatinine 0.93 today 7. Recent history of colitis and splenomegaly likely splenic infarct, status post colonoscopy which showed normal appearing colon from the rectum to the cecum with no evidence of colitis or colorectal aplasia 8. History of anxiety 9. PTSD with history of self mutilation 10. Chronic dental abscess tooth #15, status post surgical extraction of tooth 11. Postoperative acute blood loss anemia, an expected outcome given her preoperative anemia, hemodilution and cardiopulmonary bypass 12. Suspected IV drug abuse per patient's father 13. Diarrhea, expected given her history of preoperative and history of preoperative colitis, resolved Plan: 1. Continue to maximize medical therapy with low-dose aspirin, statin, and beta bryan. Will increase metoprolol tartrate as tolerated. 2. Encourage incentive spirometry use 10 times every hour while awake. Bronchodilators per pulmonology/critical care medicine. 3. Increase activity, ambulate as tolerated. PT/OT/cardiac rehab following. 4. Will monitor daily labs and chest x-rays. Electrolyte replacement per protocol. 5. Pain control with current medication regimen. Avoid nephrotoxic agents. 6. GI and DVT prophylaxis. Continue Lovenox 40 mg subcu daily until INR is therapeutic. 7. Coumadin 7.5 mg by mouth today, PT is 13.8 and INR is 1.3 today. The patient was given a dose of Coumadin 5 mg by mouth 1 yesterday for an INR of 1.1. Goal INR for first 3 months 2.0-3.0, after 3 months goal INR 1.5-2. Daily PT and INR. 8. Insulin management per primary care service. Patient is a nondiabetic with a preoperative hemoglobin A1c 5.9%. 9. Continue to record strict accurate intake and output. Daily weights. 10. Continue Lasix 40 mg IV BID at 9 AM and 4 PM, continue Potassium chloride 10 mEq by mouth twice a day until Lasix is discontinued. 11. Continue cefepime 2 g IV piggyback every 8 hours managed by infectious disease. Aortic valve cultures negative. Aortic valve pathology demonstrated sclerotic and edematous valvular tissue with focal acute and chronic inflammation and associated fibrinous debris, negative for malignancy. In terventional radiology placed a PICC line yesterday for long-term antibiotic treatment on an outpatient basis. Outpatient IV therapy is being arranged by case management director/social work. 12. Shower daily. 13. Case management/social work is arranging on outpatient IV antibiotic infusion with home care. 14. We will add Zofran 8 mg by mouth daily@1900 for her complaints of nausea after taking her Coumadin. 15. More recommendations to follow based on patient's clinical course. Time with Patient: Greater than 30
[2022-02-25] MEDS: LOPERAMIDE 2 MG CAP PO PRN (11:36)
--- NOTE | 2022-02-25 11:36 | P.PN ---
Subjective Progress Note Date: 02/25/22 Principal diagnosis: [place] valve endocarditis. On 02/20/2022 patient seen in follow-up in intensive care unit, she is postoperative day #2, status post aortic valve replacement, with the mechanical aortic valve, patch closure of the aortotomy with involving pericardium, and de bridement of some annular infected tissue as well as left atrial appendage ligation. Patient is awake and alert, she was successfully weaned and extubated from the mechanical ventilator yesterday on 02/19/2022. She is breathing comfortably, room air pulse ox is 94-96%, she is afebrile, hemodynamically she is stable, she is on lactated Ringer's at a rate of 20 ML per hour, and antibiotics with cefepime, no vasopressor support. Yesterday she had another right-sided chest tube placed by CT surgery team. Currently has [address], one mediastinal, 1 left pleural/mediastinal, 1 right pleural, and one right pleural mediastinal chest tubes, no air leak noted. Still draining serosanguineous output, with at least output from the mediastinal chest tube. Today's chest x-ray showing postsurgical changes and streaky atelectasis in the right mid and lower lung. Patient is only achieving 300 mL on the incentive spirometer, she is having significant postsurgical pain. She is receiving pain medications. Patient has been up out of bed in the chair, tolerated activity fairly well. Urinary catheter is in place, patient is producing urine in the order of 20-30 ML per hour. She has been started on diuretics by CT surgery. Today's labs have been reviewed, white blood cell count is 8.4, hemoglobin is 8.3, platelet count is 152, sodium is 135, potassium is 4.5, chloride is 109, C O2 is 18, BUN is 30 creatinine is 1.11. Progress note dated 02/21/2022. This is a 36-year-old female who is postoperative day #3, status post aortic valve replacement with a mechanical aortic valve, as well as left atrial appendage ligation. The patient is currently on room air. The patient is g etting lactated Ringer's at 20 mL an hour. She's had a uneventful night according to the nurses. Labs today include a white count 6.8, hemoglobin 8.3, hematocrit 26, and platelet count 273,000. Sodium 132, potassium 4.4, chlorides 105, CO2 19, anion gap 8, BUN 35, and creatinine 1.12. Albumin is 2.3. Previous blood cultures from February 09 were positive for Serratia marcescens. Chest x- ray shows some cardiomegaly, with mild vascular congestion. Progress note dated 02/22/2022. 36-year-old female postop day #4, status post aortic valve replacement with a mechanical aortic valve, as well as left atrial appendage ligation, for [place] valve endocarditis, secondary to Serratia. Currently, the patient's doing well. She seen today in room 267. She is on room air. No IV fluids. She was a ctually walking the hallway when I saw her. She had no complaints, anion uneventful night. White count 5.6, hemoglobin 7.8, hematocrit 24, and platelet count 185,000. PT 11.4, INR 1.1. Recent blood cultures, are negative. Previous blood cultures from February 09 showed Serratia marcescens. Chest x-ray shows some cardiomegaly, mild fluid overload, and some bilateral infiltrates. Progress note dated 02/23/2022. Postop day #5, status post aortic valve replacement with mechanical aortic valve, and this 36-year-old female, who had [place] valve endocarditis, secondary to Serratia. The patient also had ligation of her left atrial appendage. Currently, she is on room air. She's not requiring any IV fluids. She is an overflow patient in the intensive care unit. She's doing very well. She's been walking up and down the unit, without difficulty. Recent blood cultures are currently negative. White count 5, hemoglobin 8, hematocrit 24.6, and platelet count 199,000. Sodium 137, potassium 4.5, chlorides 109, CO2 21, BUN 26, creatinine 0.78. Chest x-ray shows some postsurgical changes only. Progress note dated 02/24/2022. Postop day #6, status post aortic valve replacement with a mechanical aortic valve, for [place] valve endocarditis secondary to Serratia marcescens. Currently, the patient continues on cefepime. She's on room air. She's not receiving any IV fluids. She generally feels well. Her INR is not yet therapeutic. White count 4.3, hemoglobin 7.1, hematocrit 22.9, platelet count 291,000. Sodium potassium chloride CO2 all normal. Anion gap normal. BUN 21, and creatinine 0.7. Albumin is 2.5. Chest x-ray shows some cardiomegaly, small effusions, and some atelectasis at the left lung base. Progress note dated 02/25/2022. Postop day #7, status post aortic valve replacement with a mechanical aortic valve, for [place] valve endocarditis, secondary to Serratia marcescens. The patient is resting comfortably on the general medical floor, room 375. She is on room air. She's not receiving any IV fluids. She remains on cefepime. White count 5, hemoglobin 7, hematocrit 21.4, and platelet count 285,000. Sodium, potassium, chloride, CO2, anion gap, BUN, and creatinine, are essentially normal. Magnesium is 1.3. Chest x-ray showed right lower lobe a telectasis. Objective - Vital Signs Vital signs: Vital Signs Temp 97.8 F 02/25/22 08:49 Pulse 82 02/25/22 08:49 Resp 17 02/25/22 08:50 BP 135/78 02/25/22 08:49 Pulse Ox 97 02/25/22 08:49 FiO2 35 02/22/22 04:00 Intake & Output 02/24/22 02/25/22 02/25/22 18:59 06:59 18:59 Intake Total 478 290 240 Output Total 1579 2104 1104 Balance -1101 -1814 -864 Intake: IV 40 Sodium Chloride 0.9% 1, 40 000 ml @ 20 mls/hr IV . Q24H [facility] Rx#:[id number] Oral 478 250 240 Output: Urine 1575 2100 1100 Stool 4 4 4 Other: Voiding Method Toilet Toilet Toilet ABP, PAP, CO, CI - Last Documented Arterial Blood Pressure 137/59 Pulmonary Artery Pressure 26/8 Cardiac Output 6.5 Cardiac Index 3.5 - Exam No acute distress, oriented 3. Currently on room air. HEENT examination is grossly unremarkable. Neck supple. Full range of motion. No adenopathy thyromegaly or neck vein distention. Cardiovascular examination reveals regular rhythm rate. S1-S2 normal. No S3 or S4. No discernible murmur noted. Heart rate 82 bpm. Lungs reveal mostly clear breath sounds. Minimal scattered rhonchi. No wheezes or crackles. Breath sounds are equal bilaterally. Room air saturation is 97 %. Abdomen soft bowel sounds are heard. No masses or tenderness. Extremities are intact. No cyanosis clubbing or edema. Skin is without rash or lesion. The patient is pale. Neurologic examination is brief but nonfocal. - Labs CBC & Chem 7: 02/25/22 08:54 02/25/22 08:54 Labs: Abnormal Lab Results - Last 24 Hours (Table) 02/24/22 02/24/22 02/25/22 Range/Units 16:58 19:50 07:01 RBC (3.80-5.40) m/uL Hgb (11.4-16.0) gm/dL Hct (34.0-46.0) % RDW (11.5-15.5) % PT (9.0-12.0) sec INR (<1.2) BUN (7-17) mg/dL Glucose (74-99) mg/dL POC Glucose (mg/dL) 144 H 141 H 117 H (70-110) mg/dL Calcium (8.4-10.2) mg/dL Magnesium (1.6-2.3) mg/dL 02/25/22 02/25/22 02/25/22 Range/Units 08:54 08:54 08:54 RBC 2.50 L (3.80-5.40) m/uL Hgb 7.0 L (11.4-16.0) gm/dL Hct 21.4 L (34.0-46.0) % RDW 20.6 H (11.5-15.5) % PT 13.8 H (9.0-12.0) sec INR 1.3 H (<1.2) BUN 22 H (7-17) mg/dL Glucose 107 H (74-99) mg/dL POC Glucose (mg/dL) (70-110) mg/dL Calcium 7.6 L (8.4-10.2) mg/dL Magnesium 1.3 L (1.6-2.3) mg/dL Assessment and Plan Assessment: Aortic valve endocarditis, secondary to Serratia marcescens. Postop day #7, status post aortic valve replacement. Severe aortic regurgitation, secondary to above. Routine postoperative ventilator management, with extubation on 02/19/2022. Acute blood loss anemia. Acute pulmonary edema. Plan: Plan dated 02/21/2022. The patient continues to improve. She's been weaned down to room air. She's getting lactated Ringer's at 20 mL an hour. We encouraged to deep breathe, cough, and clear any secretions. In addition, we recommend ongoing use of the incentive spirometer, every hour. We will continue to follow. She continues on GI and DVT prophylaxis. She continues on antibiotics. Overall prognosis remains guarded. We'll continue to follow make recommendations where appropriate. Plan dated 02/22/2022. The patient is doing very well. The patient's on room air. No IV fluids. Labs, x-rays, and medications are reviewed. Most recent blood cultures are negative. The patient remains on cefepime. We will continue to follow. In my opinion, the patient is stable for transfer out of the intensive care unit. No additional recommendations are made. Prognosis is certainly very guarded. She continues on GI and DVT prophylaxis. Plan dated 02/23/2022. The patient is seen again in room 267. The patient's on room air. She's not receiving any IV fluids. The patient is doing very well. We will continue to follow. She continues to use incentive spirometer. Her respiratory status and her hemodynamic status is very stable. We will continue with GI and DVT prophylaxis. She remains on cefepime. Prognosis is guarded. Plan dated 02/24/2022. Currently, the patient remains on cefepime for her Serratia infection. She is postop day #6. She's doing well. She's on room air. She's not on any IV fluids. We will continue to follow the patient and make recommendations along the way. Prognosis is certainly guarded. Respiratory status is stable. Hemodynamic status is stable. Discharge will be determined by infectious diseases, and cardiothoracic surgery. Plan dated 02/25/2022. The patient remains on cefepime for her Serratia infection. Subsequent blood cultures were negative. She is postop day number 7. The patient is on room air. She's not receiving any IV fluids. Labs, x-rays, and medications are all reviewed. The patient's overall prognosis is guarded. We will continue to follow and make recommendations where appropriate. Time with Patient: Less than 30
[2022-02-25 12:23] LABS: Glucose,Whole Blood 129 mg/dL (70-110)
[2022-02-25] MEDS: MAGNESIUM SULFATE-D5W PMX 1 GM in DEXTROSE/WATER 1 100ML.BAG IVPB SCH ×3 (15:47→19:03)
--- NOTE | 2022-02-25 16:43 | P.PN ---
Subjective Progress Note Date: 02/25/22 This is a pleasant 36 year old female who is monitored on step down unit, she is postoperative day #7 for AVR secondary to endocarditis with recent history of bacteremia with Serratia Mercescens at [facility]. Patient with history of colitis and also splenomegaly. Her main complaint today is diarrhea ongoing which she had also experienced postopertively. C.Dif found to be negative. She had a dose of immodium today. Denies dysuria. Denies any shortness of breath, does have some incisional chest discomfort as well as discomfort to chest tube site incisions. Chest xray today showing increasing right lower lobe airspace opacity possibly a developing atelectasis versus pneumonia with similar left lo wer lobe opacity. Incentive spirometer at bedside, encouraged use. Patient states she has not been as ambulatory as she would like and states, PT last evaluated the patient on the . Labs today showing a hemoglobin level of 7.0 which is stable, INR today 1.3. Magnesium level today is 1.3 and patient did receive 3 bags of magnesium as well as calcium gluconate 2 grams. Patient continues on IV lasix twice a day with a urinary output of 2L in the last 24 hours. She remains afebrile, heart rate in the 80s, blood pressure 138/68, 98% room air. Review of Systems Constitutional: Denied any fatigue denied any fever. Cardio vascular: denied any chest pain, palpitations. Reports incisional chest discomfort. Gastrointestinal: denied any nausea, vomiting. Reports diarrhea. Pulmonary: Denied any shortness of breath cough Neurologic denied any new focal deficits All inpatient medications were reviewed and appropriate changes in these medications as dictated in the interval history and assessment and plan. PHYSICAL EXAMINATION: GENERAL: The patient is alert and oriented x3, not in any acute distress. Well developed, well nourished. HEENT: Pupils are round and equally reacting to light. EOMI. No scleral icterus. No conjunctival pallor. Normocephalic, atraumatic. No pharyngeal erythema. No thyromegaly. CARDIOVASCULAR: S1 and S2 present. No murmurs, rubs, or gallops. PULMONARY: Chest is clear to auscultation, no wheezing or crackles. ABDOMEN: Soft, nontender, nondistended, normoactive bowel sounds. No palpable organomegaly. MUSCULOSKELETAL: No joint swelling or deformity. EXTREMITIES: No cyanosis, clubbing, or pedal edema. NEUROLOGICAL: Gross neurological examination did not reveal any focal deficits. SKIN: No rashes. Post surgical incisions intact. Chest tube incisions tender to palpation left lower quadrant. Assessment and plan Assessment Subacute bacterial endocarditis Severe aortic regurgitation secondary to above, status post aortic valve replacement with mechanical valve on 02/18 Sepsis with fever and tachypnea, resolved Acute hypoxic respiratory failure requiring intubation and mechanical ventilation, post extubation and currently on room air. Metabolic encephalopathy Acute pulmonary edema, could be acute CHF versus RDS Severe anemia, microcytic hyperchromic requiring blood transfusion 4 Elevated troponin' Hypomagnesemia secondary to poor oral intake also patient had an episode of emesis last night History of recent colitis History of splenectomy Recent tooth extraction GI Prophylaxis DVT Prophylaxis: On Coumadin, patient is also on lovenox bridge for supratherapeutic INR Full Code Plan Continue to encourage ambulation, incentive spirometery Continue IV lasix with strict intake and output Replace magnesium Multiple consultations including cardiothoracic, cardiology, pulmonary [employer] portal developer, hematology, infectious disease Repeat Labs in AM PICC line in place, 6 weeks of antibiotic therapy on discharge recommending Zofran has been added today for nausea, continues on protonix BID The impression and plan of care has been dictated by Jena Duckworth Nurse Practitioner as directed. Dr. Poala MD I have performed a history and physical examination and medical decision making of this patient, discussed the same with the dictator, and agree with the dictators assessment and plan as written, documented as a scribe. Based on total visit time, I have performed more than 50% of this visit. Objective - Vital Signs Vital signs: Vital Signs Temp 98.2 F 02/25/22 15:44 Pulse 92 02/25/22 15:44 Resp 17 02/25/22 15:45 BP 138/68 02/25/22 15:44 Pulse Ox 98 02/25/22 15:44 FiO2 35 02/22/22 04:00 Intake & Output 02/24/22 02/25/22 02/25/22 18:59 06:59 18:59 Intake Total 478 290 240 Output Total 1579 2104 1103 Balance -1101 -1814 -868 Intake: IV 40 Sodium Chloride 0.9% 1, 40 000 ml @ 20 mls/hr IV . Q24H [facility] Rx#:[id number] Oral 478 250 240 Output: Urine 1575 2100 1100 Stool 4 4 8 Other: Voiding Method Toilet Toilet Toilet ABP, PAP, CO, CI - Last Documented Arterial Blood Pressure 137/59 Pulmonary Artery Pressure 26/8 Cardiac Output 6.5 Cardiac Index 3.5 - Labs CBC & Chem 7: 02/25/22 08:54 02/25/22 08:54 Labs: Abnormal Lab Results - Last 24 Hours (Table) 02/24/22 02/24/22 02/25/22 Range/Units 16:58 19:50 07:01 RBC (3.80-5.40) m/uL Hgb (11.4-16.0) gm/dL Hct (34.0-46.0) % RDW (11.5-15.5) % PT (9.0-12.0) sec INR (<1.2) BUN (7-17) mg/dL Glucose (74-99) mg/dL POC Glucose (mg/dL) 144 H 141 H 117 H (70-110) mg/dL Calcium (8.4-10.2) mg/dL Magnesium (1.6-2.3) mg/dL 02/25/22 02/25/22 02/25/22 Range/Units 08:54 08:54 08:54 RBC 2.50 L (3.80-5.40) m/uL Hgb 7.0 L (11.4-16.0) gm/dL Hct 21.4 L (34.0-46.0) % RDW 20.6 H (11.5-15.5) % PT 13.8 H (9.0-12.0) sec INR 1.3 H (<1.2) BUN 22 H (7-17) mg/dL Glucose 107 H (74-99) mg/dL POC Glucose (mg/dL) (70-110) mg/dL Calcium 7.6 L (8.4-10.2) mg/dL Magnesium 1.3 L (1.6-2.3) mg/dL 02/25/22 Range/Units 11:50 RBC (3.80-5.40) m/uL Hgb (11.4-16.0) gm/dL Hct (34.0-46.0) % RDW (11.5-15.5) % PT (9.0-12.0) sec INR (<1.2) BUN (7-17) mg/dL Glucose (74-99) mg/dL POC Glucose (mg/dL) 129 H (70-110) mg/dL Calcium (8.4-10.2) mg/dL Magnesium (1.6-2.3) mg/dL Assessment and Plan Time with Patient: Less than 30
[2022-02-25 17:21] LABS: Glucose,Whole Blood 137 mg/dL (70-110)
[2022-02-25] MEDS ORDERED: WARFARIN 7.5 MG TAB PO ONE (18:00)
[2022-02-25] MEDS: ONDANSETRON ODT 8 MG TAB.RAPDIS PO SCH (18:55)
[2022-02-25 20:37] LABS: Glucose,Whole Blood 134 mg/dL (70-110)
--- NOTE | 2022-02-25 23:12 | P.PN ---
Subjective Progress Note Date: 02/25/22 Principal diagnosis: Gram-negative bacteremia and aortic valve endocarditis Patient is a 36 year female presenting to the hospital with acute respiratory failure in this patient to have evidence of gram-negative bacteremia and there was concern for vegetation on the aortic valve , patient did have extension of the infected tooth and colonoscopy as a part of preparation for the aortic valve replacement which was completed 02/18/2022 on today's evaluation that is 02/25/2022, the patient denies any fever or chills, the patient is breathing comfortably on room air, patient denies chest pain shortness of breath or cough, the patient denies abdominal pain and no diar zee Objective - Vital Signs Vital signs: Vital Signs Temp 98.1 F 02/25/22 11:35 Pulse 79 02/25/22 11:35 Resp 17 02/25/22 11:35 BP 136/81 02/25/22 11:35 Pulse Ox 97 02/25/22 11:35 FiO2 35 02/22/22 04:00 Intake & Output 02/24/22 02/25/22 02/25/22 18:59 06:59 18:59 Intake Total 478 290 240 Output Total 1579 2104 1104 Balance -1101 -1814 -864 Intake: IV 40 Sodium Chloride 0.9% 1, 40 000 ml @ 20 mls/hr IV . Q24H [facility] Rx#:[id number] Oral 478 250 240 Output: Urine 1575 2100 1100 Stool 4 4 4 Other: Voiding Method Toilet Toilet Toilet ABP, PAP, CO, CI - Last Documented Arterial Blood Pressure 137/59 Pulmonary Artery Pressure 26/8 Cardiac Output 6.5 Cardiac Index 3.5 - Exam GENERAL DESCRIPTION: Middle-aged female lying in bed in no distress RESPIRATORY SYSTEM: Unlabored breathing , decreased breath sounds at bases HEART: S1 S2 regular rate and rhythm , ABDOMEN: Soft , no tenderness EXTREMITIES: No edema feet - Labs CBC & Chem 7: 02/25/22 08:54 02/25/22 08:54 Labs: Abnormal Lab Results - Last 24 Hours (Table) 02/24/22 02/24/22 02/25/22 Range/Units 16:58 19:50 07:01 RBC (3.80-5.40) m/uL Hgb (11.4-16.0) gm/dL Hct (34.0-46.0) % RDW (11.5-15.5) % PT (9.0-12.0) sec INR (<1.2) BUN (7-17) mg/dL Glucose (74-99) mg/dL POC Glucose (mg/dL) 144 H 141 H 117 H (70-110) mg/dL Calcium (8.4-10.2) mg/dL Magnesium (1.6-2.3) mg/dL 02/25/22 02/25/22 02/25/22 Range/Units 08:54 08:54 08:54 RBC 2.50 L (3.80-5.40) m/uL Hgb 7.0 L (11.4-16.0) gm/dL Hct 21.4 L (34.0-46.0) % RDW 20.6 H (11.5-15.5) % PT 13.8 H (9.0-12.0) sec INR 1.3 H (<1.2) BUN 22 H (7-17) mg/dL Glucose 107 H (74-99) mg/dL POC Glucose (mg/dL) (70-110) mg/dL Calcium 7.6 L (8.4-10.2) mg/dL Magnesium 1.3 L (1.6-2.3) mg/dL 02/25/22 Range/Units 11:50 RBC (3.80-5.40) m/uL Hgb (11.4-16.0) gm/dL Hct (34.0-46.0) % RDW (11.5-15.5) % PT (9.0-12.0) sec INR (<1.2) BUN (7-17) mg/dL Glucose (74-99) mg/dL POC Glucose (mg/dL) 129 H (70-110) mg/dL Calcium (8.4-10.2) mg/dL Magnesium (1.6-2.3) mg/dL Assessment and Plan (1) Sepsis Current Visit: Yes Status: Acute Code(s): A41.9 - SEPSIS, UNSPECIFIED OR GANISM SNOMED Code(s): 62920780 Plan: 1patient presented to hospital with sepsis in this patient did have a fever tachycardia tachypnea with evidence of vegetation on aortic wall likely secondary to endocarditis, blood culture has been finalized and Serratia from her repeat blood culture had been negative as 2-patient is status post aortic valve replacment surgery on 02/18/2022 , OR culture has been negative so for 2 patient has shown clinical improvement and is currently being treated with cefepime 2 g every 8 hours which will be continued and plan is for total of 6 weeks of antibiotics Time with Patient: Less than 30
[2022-02-26] MEDS: ACETAMINOPHEN TAB 325 MG TAB PO PRN ×5 (01:33→21:17)
[2022-02-26] MEDS: CEFEPIME 2 GM in SODIUM CHLORIDE 0.9% 100 ML IVPB SCH ×3 (03:56→18:49)
[2022-02-26 06:12] LABS: Glucose,Whole Blood 131 mg/dL (70-110)
[2022-02-26] MEDS: INSULIN ASPART (NovoLOG) 100 UNIT/ML VIAL SQ SCH ×4 (06:24→21:18)
[2022-02-26] MEDS: FERROUS SULFATE 325 MG TAB PO SCH ×2 (06:30→17:13)
[2022-02-26] MEDS: PANTOPRAZOLE 40 MG TABLET PO SCH ×2 (06:31→17:13)
--- NOTE | 2022-02-26 07:23 | XR ---
EXAMINATION TYPE: XR chest 1V portable DATE OF EXAM: 02/26/2022 6:40 AM COMPARISON: Chest radiograph from one day prior. TECHNIQUE: XR chest 1V portable . CLINICAL INDICATION:Female, 36 years old with history of Post op AVR; FINDINGS: Lungs/Pleura: Stable right lower lobe airspace opacities with similar left basilar airspace opacities . Right midlung streaky atelectasis/scarring is unchanged. There is no evidence of pleural effusion, focal consolidation, or pneumothorax. Pulmonary vascularity: Unremarkable. Heart/mediastinum: Cardiomediastinal silhouette is enlarged and stable. Left atrial appendage occlusi on device is present. Post aortic valve repair changes. Musculoskeletal: No acute osseous pathology. Sternotomy changes present Lines/Tubes: Right-sided PICC line with distal tip at the cavoatrial junction. IMPRESSION: 1. Stable right lower lobe airspace opacity some of which could be atelectasis due to low lung volume s. 2. Similar left lower lobe opacity.
[2022-02-26 08:30] LABS: Anisocytosis Moderate; HCT 22.6 % (34.0-46.0); HGB 7.3 gm/dL (11.4-16.0); Hypochromasia Moderate; MCH 27.8 pg (25.0-35.0); MCHC 32.4 g/dL (31.0-37.0); MCV 85.9 fL (80.0-100.0); Microcytosis Slight; Platelet Count 197 k/uL (150-450); Poikilocytosis Slight; RBC 2.64 m/uL (3.80-5.40); RDW 21.1 % (11.5-15.5); WBC 5.1 k/uL (3.8-10.6)
[2022-02-26 09:12] LABS: INR 1.6 (<1.2); Prothrombin Time 16.1 sec (9.0-12.0)
[2022-02-26 09:30] LABS: African American GFR (CKD) >90 (>60 ml/min/1.73 sqM); Anion Gap 7 mmol/L; Blood Urea Nitrogen 21 mg/dL (7-17); Calcium 7.5 mg/dL (8.4-10.2); Carbon Dioxide 25 mmol/L (22-30); Chloride 104 mmol/L (98-107); Glucose 151 mg/dL (74-99); Magnesium 1.7 mg/dL (1.6-2.3); Non-African American GFR(CKD) >90 (>60 ml/min/1.73 sqM); Potassium 4.3 mmol/L (3.5-5.1); Sodium 136 mmol/L (137-145)
[2022-02-26] MEDS: POTASSIUM CHLORIDE ER 10 MEQ TAB.ER.PRT PO SCH (09:48)
[2022-02-26] MEDS: ASPIRIN 81 MG PO SCH (09:48)
[2022-02-26] MEDS: METOPROLOL TARTRATE 25 MG TAB PO SCH ×2 (09:48→21:16)
[2022-02-26] MEDS: ATORVASTATIN 20 MG TAB PO SCH (09:48)
[2022-02-26] MEDS: ASCORBIC ACID 500 MG TAB PO SCH (09:49)
[2022-02-26] MEDS: CHOLESTYRAMINE (WITH SUGAR) 4 GM PACKET PO SCH ×2 (09:49→17:13)
[2022-02-26] MEDS: ENOXAPARIN 40 MG/0.4 ML SYRINGE SQ SCH (09:49)
[2022-02-26] MEDS: ESCITALOPRAM 5 MG TAB PO SCH (09:57)
[2022-02-26 10:06] LABS: Amorphous Sediment,Urine Rare /hpf; Appearance,Urine Clear (Clear); Bacteria,Urine Rare /hpf; Bilirubin,Urine Negative (Negative); Blood,Urine Large (Negative); Calcium Oxalate Crystals,Urine Occasional /hpf; Color,Urine Yellow; Glucose,Urine (UA) Negative (Negative); Ketones,Urine Negative (Negative); Leukocyte Esterase,Urine Small (Negative); Mucus,Urine Rare /hpf; Nitrite,Urine Negative (Negative); Protein,Urine 2+ (Negative); RBC,Urine >182 /hpf (0-5); Specific Gravity,Urine 1.007 (1.001-1.035); Squamous Epithelial Cell,Urine <1 /hpf (0-4); Urobilinogen,Urine <2.0 mg/dL (<2.0); WBC,Urine 8 /hpf (0-5)
[2022-02-26] MEDS ORDERED: CALCIUM GLUCONATE IN NACL 2 GM in SALINE 1 100ML.BAG IVPB ONE (11:00)
--- NOTE | 2022-02-26 11:14 | P.PN ---
Subjective Progress Note Date: 02/26/22 Principal diagnosis: Pok[place] valve endocarditis. On 02/20/2022 patient seen in follow-up in intensive care unit, she is postoperative day #2, status post aortic valve replacement, with the mechanical aortic valve, patch closure of the aortotomy with involving pericardium, and de bridement of some annular infected tissue as well as left atrial appendage ligation. Patient is awake and alert, she was successfully weaned and extubated from the mechanical ventilator yesterday on 02/19/2022. She is breathing comfortably, room air pulse ox is 94-96%, she is afebrile, hemodynamically she is stable, she is on lactated Ringer's at a rate of 20 ML per hour, and antibiotics with cefepime, no vasopressor support. Yesterday she had another right-sided chest tube placed by CT surgery team. Currently has [address], one mediastinal, 1 left pleural/mediastinal, 1 right pleural, and one right pleural mediastinal chest tubes, no air leak noted. Still draining serosanguineous output, with at least output from the mediastinal chest tube. Today's chest x-ray showing postsurgical changes and streaky atelectasis in the right mid and lower lung. Patient is only achieving 300 mL on the incentive spirometer, she is having significant postsurgical pain. She is receiving pain medications. Patient has been up out of bed in the chair, tolerated activity fairly well. Urinary catheter is in place, patient is producing urine in the order of 20-30 ML per hour. She has been started on diuretics by CT surgery. Today's labs have been reviewed, white blood cell count is 8.4, hemoglobin is 8.3, platelet count is 152, sodium is 135, potassium is 4.5, chloride is 109, C O2 is 18, BUN is 30 creatinine is 1.11. Progress note dated 02/21/2022. This is a 36-year-old female who is postoperative day #3, status post aortic valve replacement with a mechanical aortic valve, as well as left atrial appendage ligation. The patient is currently on room air. The patient is g etting lactated Ringer's at 20 mL an hour. She's had a uneventful night according to the nurses. Labs today include a white count 6.8, hemoglobin 8.3, hematocrit 26, and platelet count 273,000. Sodium 132, potassium 4.4, chlorides 105, CO2 19, anion gap 8, BUN 35, and creatinine 1.12. Albumin is 2.3. Previous blood cultures from February 09 were positive for Serratia marcescens. Chest x- ray shows some cardiomegaly, with mild vascular congestion. Progress note dated 02/22/2022. 36-year-old female postop day #4, status post aortic valve replacement with a mechanical aortic valve, as well as left atrial appendage ligation, for resighini valve endocarditis, secondary to Serratia. Currently, the patient's doing well. She seen today in room 267. She is on room air. No IV fluids. She was a ctually walking the hallway when I saw her. She had no complaints, anion uneventful night. White count 5.6, hemoglobin 7.8, hematocrit 24, and platelet count 185,000. PT 11.4, INR 1.1. Recent blood cultures, are negative. Previous blood cultures from February 09 showed Serratia marcescens. Chest x-ray shows some cardiomegaly, mild fluid overload, and some bilateral infiltrates. Progress note dated 02/23/2022. Postop day #5, status post aortic valve replacement with mechanical aortic valve, and this 36-year-old female, who had resighini valve endocarditis, secondary to Serratia. The patient also had ligation of her left atrial appendage. Currently, she is on room air. She's not requiring any IV fluids. She is an overflow patient in the intensive care unit. She's doing very well. She's been walking up and down the unit, without difficulty. Recent blood cultures are currently negative. White count 5, hemoglobin 8, hematocrit 24.6, and platelet count 199,000. Sodium 137, potassium 4.5, chlorides 109, CO2 21, BUN 26, creatinine 0.78. Chest x-ray shows some postsurgical changes only. Progress note dated 02/24/2022. Postop day #6, status post aortic valve replacement with a mechanical aortic valve, for resighini valve endocarditis secondary to Serratia marcescens. Currently, the patient continues on cefepime. She's on room air. She's not receiving any IV fluids. She generally feels well. Her INR is not yet therapeutic. White count 4.3, hemoglobin 7.1, hematocrit 22.9, platelet count 291,000. Sodium potassium chloride CO2 all normal. Anion gap normal. BUN 21, and creatinine 0.7. Albumin is 2.5. Chest x-ray shows some cardiomegaly, small effusions, and some atelectasis at the left lung base. Progress note dated 02/25/2022. Postop day #7, status post aortic valve replacement with a mechanical aortic valve, for resighini valve endocarditis, secondary to Serratia marcescens. The patient is resting comfortably on the general medical floor, room 375. She is on room air. She's not receiving any IV fluids. She remains on cefepime. White count 5, hemoglobin 7, hematocrit 21.4, and platelet count 285,000. Sodium, potassium, chloride, CO2, anion gap, BUN, and creatinine, are essentially normal. Magnesium is 1.3. Chest x-ray showed right lower lobe a telectasis. Progress note dated 02/26/2022. Postop day #8, status post aortic valve replacement with mechanical aortic valve, for resighini valve endocarditis, secondary to Serratia marcescens. The senthil gonzales remains on cefepime. She is seen today in room 375. She's on room air. She's not receiving any IV fluids. The patient is hoping to be discharged home in the next day or so. She had an uneventful night. White count 5.1, hemoglobin 7.3, hematocrit 22.6, and platelet count 297,000. PT was 16.1. INR 1.6. Sodium 136, potassium 4.3, chlorides 104, CO2 25, BUN 21, and creatinine 0.78. A repeat chest x-ray is essentially unchanged in my opinion. Objective - Vital Signs Vital signs: Vital Signs Temp 98.0 F 02/26/22 07:50 Pulse 87 02/26/22 07:53 Resp 16 02/26/22 07:50 BP 136/80 02/26/22 07:50 Pulse Ox 97 02/26/22 07:50 FiO2 35 02/22/22 04:00 Intake & Output 02/25/22 02/26/22 02/26/22 18:59 06:59 18:59 Intake Total 690 500 660 Output Total 1908 1850 550 Balance -1218 -1350 110 Weight 74.8 kg Intake: Oral 690 500 660 Output: Urine 1900 1850 550 Stool 8 Other: Voiding Method Toilet Toilet Toilet ABP, PAP, CO, CI - Last Documented Arterial Blood Pressure 137/59 Pulmonary Artery Pressure 26/8 Cardiac Output 6.5 Cardiac Index 3.5 - Exam No acute distress, oriented 3. Currently on room air. HEENT examination is grossly unremarkable. Neck supple. Full range of motion. No adenopathy thyromegaly or neck vein distention. Cardiovascular examination reveals regular rhythm rate. S1-S2 normal. No S3 or S4. No discernible murmur noted. Heart rate 87 bpm. Lungs reveal mostly clear breath sounds. Minimal scattered rhonchi. No wheezes or crackles. Breath sounds are equal bilaterally. Room air saturation is 98 %. Abdomen soft bowel sounds are heard. No masses or tenderness. Extremities are intact. No cyanosis clubbing or edema. Skin is without rash or lesion. The patient is pale. Neurologic examination is brief but nonfocal. - Labs CBC & Chem 7: 02/26/22 08:00 02/26/22 08:00 Labs: Abnormal Lab Results - Last 24 Hours (Table) 02/25/22 02/25/22 02/25/22 Range/Units 11:50 17:01 20:34 RBC (3.80-5.40) m/uL Hgb (11.4-16.0) gm/dL Hct (34.0-46.0) % RDW (11.5-15.5) % PT (9.0-12.0) sec INR (<1.2) Sodium (137-145) mmol/L BUN (7-17) mg/dL Glucose (74-99) mg/dL POC Glucose (mg/dL) 129 H 137 H 134 H (70-110) mg/dL Calcium (8.4-10.2) mg/dL Urine Protein (Negative) Urine Blood (Negative) Ur Leukocyte Esterase (Negative) Urine RBC (0-5) /hpf Urine WBC (0-5) /hpf Calcium Oxalate Crystal (None) /hpf Amorphous Sediment (None) /hpf Urine Bacteria (None) /hpf Urine Mucus (None) /hpf 02/26/22 02/26/22 02/26/22 Range/Units 06:11 08:00 08:00 RBC 2.64 L (3.80-5.40) m/uL Hgb 7.3 L (11.4-16.0) gm/dL Hct 22.6 L (34.0-46.0) % RDW 21.1 H (11.5-15.5) % PT (9.0-12.0) sec INR (<1.2) Sodium 136 L (137-145) mmol/L BUN 21 H (7-17) mg/dL Glucose 151 H (74-99) mg/dL POC Glucose (mg/dL) 131 H (70-110) mg/dL Calcium 7.5 L (8.4-10.2) mg/dL Urine Protein (Negative) Urine Blood (Negative) Ur Leukocyte Esterase (Negative) Urine RBC (0-5) /hpf Urine WBC (0-5) /hpf Calcium Oxalate Crystal (None) /hpf Amorphous Sediment (None) /hpf Urine Bacteria (None) /hpf Urine Mucus (None) /hpf 02/26/22 02/26/22 Range/Units 08:00 09:39 RBC (3.80-5.40) m/uL Hgb (11.4-16.0) gm/dL Hct (34.0-46.0) % RDW (11.5-15.5) % PT 16.1 H (9.0-12.0) sec INR 1.6 H (<1.2) Sodium (137-145) mmol/L BUN (7-17) mg/dL Glucose (74-99) mg/dL POC Glucose (mg/dL) (70-110) mg/dL Calcium (8.4-10.2) mg/dL Urine Protein 2+ H (Negative) Urine Blood Large H (Negative) Ur Leukocyte Esterase Small H (Negative) Urine RBC >182 H (0-5) /hpf Urine WBC 8 H (0-5) /hpf Calcium Oxalate Crystal Occasional H (None) /hpf Amorphous Sediment Rare H (None) /hpf Urine Bacteria Rare H (None) /hpf Urine Mucus Rare H (None) /hpf Assessment and Plan Assessment: Aortic valve endocarditis, secondary to Serratia marcescens. Postop day #8, status post aortic valve replacement. Severe aortic regurgitation, secondary to above. Routine postoperative ventilator management, with extubation on 02/19/2022. Acute blood loss anemia. Acute pulmonary edema. Plan: Plan dated 02/21/2022. The patient continues to improve. She's been weaned down to room air. She's getting lactated Ringer's at 20 mL an hour. We encouraged to deep breathe, cough, and clear any secretions. In addition, we recommend ongoing use of the incentive spirometer, every hour. We will continue to follow. She continues on GI and DVT prophylaxis. She continues on antibiotics. Overall prognosis remains guarded. We'll continue to follow make recommendations where appropriate. Plan dated 02/22/2022. The patient is doing very well. The patient's on room air. No IV fluids. Labs, x-rays, and medications are reviewed. Most recent blood cultures are negative. The patient remains on cefepime. We will continue to follow. In my opinion, the patient is stable for transfer out of the intensive care unit. No additional recommendations are made. Prognosis is certainly very guarded. She continues on GI and DVT prophylaxis. Plan dated 02/23/2022. The patient is seen again in room 267. The patient's on room air. She's not r eceiving any IV fluids. The patient is doing very well. We will continue to follow. She continues to use incentive spirometer. Her respiratory status and her hemodynamic status is very stable. We will continue with GI and DVT prophylaxis. She remains on cefepime. Prognosis is guarded. Plan dated 02/24/2022. Currently, the patient remains on cefepime for her Serratia infection. She is postop day #6. She's doing well. She's on room air. She's not on any IV fluids. We will continue to follow the patient and make recommendations along the way. Prognosis is certainly guarded. Respiratory status is stable. Hemodynamic status is stable. Discharge will be determined by infectious d ivnny, and cardiothoracic surgery. Plan dated 02/25/2022. The patient remains on cefepime for her Serratia infection. Subsequent blood cultures were negative. She is postop day number 7. The patient is on room air. She's not receiving any IV fluids. Labs, x-rays, and medications are all reviewed. The patient's overall prognosis is guarded. We will continue to follow and make recommendations where appropriate. Plan dated 02/26/2022. The patient is hoping to be discharged soon. She is currently on room air. She's not receiving any IV fluids. Clinically, she's feeling fine. We will continue to follow the patient and make recommendations along the way. We will see her in the office after discharge. Her INR is now 1.6. Cardiothoracic surgery is still adjusting her Coumadin dose. Time with Patient: Less than 30
[2022-02-26 11:30] LABS: Glucose,Whole Blood 108 mg/dL (70-110)
[2022-02-26] MEDS: FUROSEMIDE 10 MG/ML 4 ML VIAL IV SCH (11:44)
--- NOTE | 2022-02-26 11:50 | P.PN ---
Subjective Progress Note Date: 02/26/22 PROGRESS NOTE The patient is a 36-year-old female who presented with progressive dyspnea, change in mental status requiring mechanical ventilation. She was febrile and had positive blood cultures. She was recently discharged from [facility] with diarrhea and positive blood cultures as well with change in mental status. Her echocardiogram performed yesterday showed possible aortic valve vegetations that was confirmed on the transesophageal echocardiogram with severe aortic regurgitation and a tricuspid aortic valve. She had moderate mitral regurgitation. Her echocardiogram at [facility] on January 25 showed a normal systolic function with trace aortic regurgitation and no mention of vegetations. She had at [facility] evidence of splenic infarct and colitis as well has severe anemia. She continues to be intubated, tachycardic at times. Her blood pressure is stable. The color of her urine is better. There is no evidence of malignant arrhythmia. She continues to be febrile. Her urinary output is good. Her blood cultures were positive for Se rratia Marcescens which is the same bacteria noted at [facility]. She was seen by the cardiovascular team yesterday. Her computed tomography scan of the abdomen showed moderately severe hepatosplenomegaly was bilateral enlargement of the kidneys. She had cardiomegaly with pleural effusion and basilar pulmonary infiltrate atelectasis. No suggestion of colitis was noted. February 11: The patient remains intubated and sedated, in sinus mechanism, hemodynamically stable on no vasopressors. She has good urinary output. There is no evidence of malignant arrhythmia. Her blood pressure were positive for Serratia marcescens. She is afebrile. Her echocardiogram showed severe aortic regurgitation with evidence of vegetation on a tricuspid aortic valve and question of ulceration noted. Her systolic function was 50-55%. On the echocardiogram performed at [facility] recently there is no documentation of the vegetation and she had trace AI. The patient is being evaluated to be transferred to tertiary care hospital for further treatment. February 12: The patient is extubated, hemodynamically stable, denies any chest discomfort, dizziness or palpitations. She continues to be in sinus mechanism. She had no evidence of atrial arrhythmia. She cannot recall the episode prior to admission. She denies any knowledge of valvular problem in the past. She denie s any history of IV drug abuse. She remains afebrile. Her urinary output has been stable. She received one dose of IV Lasix yesterday. Repeat blood culture from February 09 showed no growth after 48 hours. February 25: The patient feels well, she is sitting up in the chair, she denies any chest dis comfort, dizziness or palpitations. She is status post aortic valve replacement. She continues to be in sinus mechanism. She continues to be anemic. She is receiving IV antibiotics. 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 February 26: The patient feels better today, she feels stronger. She denies any chest discomfort, dizziness or palpitations. She is in sinus mechanism. She has been ambulating. She continues to be in sinus mechanism Medications: Lasix 40 mg IV twice a day, metoprolol 75 mg twice a day, Coumadin, aspirin once a day, Lipitor 40 mg daily PHYSICAL EXAMINATION: 36-year-old female alert and oriented Blood pressure 136/80 heart rate 87 LUNGS: Clear to auscultation with mild decrease in the breath sounds at the bases HEART: Regular rate and rhythm, S1, S2. Prosthetic aortic sound No S3. systolic ejection murmur 07/07 ABDOMEN: Soft, positive bowel sounds, no organomegaly EXTREMETIES: No edema LAB: Potassium 4.3, BUN 21, creatinine 0.78, INR 1.6, hemoglobin 7.3 IMPRESSION: 1. Aortic valve endocarditis status post aortic valve replacement, stable 2. Colitis and spleen infarct by CAT scan at [facility] 3. Respiratory failure, resolved 4. Change in mental status prior to admission related to the sepsis, resolved 5. Anemia, most likely related to the infectious process, improved 6. Abnormal renal functions, resolved PLAN: 1. Continue Coumadin until INR therapeutic 2. Increase physical activity 3. Incentive spirometry 4. Follow hemoglobin 5. Probable discharge tomorrow Objective - Vital Signs Vital signs: Vital Signs Temp 98.0 F 02/26/22 07:50 Pulse 87 02/26/22 07:53 Resp 16 02/26/22 07:50 BP 136/80 02/26/22 07:50 Pulse Ox 97 02/26/22 07:50 FiO2 35 02/22/22 04:00 Intake & Output 02/25/22 02/26/22 02/26/22 18:59 06:59 18:59 Intake Total 690 500 660 Output Total 1901 9230 950 Balance -1218 -1350 -290 Weight 74.8 kg Intake: Oral 690 500 660 Output: Urine 1900 1850 950 Stool 8 Other: Voiding Method Toilet Toilet Toilet ABP, PAP, CO, CI - Last Documented Arterial Blood Pressure 137/59 Pulmonary Artery Pressure 26/8 Cardiac Output 6.5 Cardiac Index 3.5 - Labs CBC & Chem 7: 02/26/22 08:00 02/26/22 08:00 Labs: Abnormal Lab Results - Last 24 Hours (Table) 02/25/22 02/25/22 02/25/22 Range/Units 11:50 17:01 20:34 RBC (3.80-5.40) m/uL Hgb (11.4-16.0) gm/dL Hct (34.0-46.0) % RDW (11.5-15.5) % PT (9.0-12.0) sec INR (<1.2) Sodium (137-145) mmol/L BUN (7-17) mg/dL Glucose (74-99) mg/dL POC Glucose (mg/dL) 129 H 137 H 134 H (70-110) mg/dL Calcium (8.4-10.2) mg/dL Urine Protein (Negative) Urine Blood (Negative) Ur Leukocyte Esterase (Negative) Urine RBC (0-5) /hpf Urine WBC (0-5) /hpf Calcium Oxalate Crystal (None) /hpf Amorphous Sediment (None) /hpf Urine Bacteria (None) /hpf Urine Mucus (None) /hpf 02/26/22 02/26/22 02/26/22 Range/Units 06:11 08:00 08:00 RBC 2.64 L (3.80-5.40) m/uL Hgb 7.3 L (11.4-16.0) gm/dL Hct 22.6 L (34.0-46.0) % RDW 21.1 H (11.5-15.5) % PT (9.0-12.0) sec INR (<1.2) Sodium 136 L (137-145) mmol/L BUN 21 H (7-17) mg/dL Glucose 151 H (74-99) mg/dL POC Glucose (mg/dL) 131 H (70-110) mg/dL Calcium 7.5 L (8.4-10.2) mg/dL Urine Protein (Negative) Urine Blood (Negative) Ur Leukocyte Esterase (Negative) Urine RBC (0-5) /hpf Urine WBC (0-5) /hpf Calcium Oxalate Crystal (None) /hpf Amorphous Sediment (None) /hpf Urine Bacteria (None) /hpf Urine Mucus (None) /hpf 02/26/22 02/26/22 Range/Units 08:00 09:39 RBC (3.80-5.40) m/uL Hgb (11.4-16.0) gm/dL Hct (34.0-46.0) % RDW (11.5-15.5) % PT 16.1 H (9.0-12.0) sec INR 1.6 H (<1.2) Sodium (137-145) mmol/L BUN (7-17) mg/dL Glucose (74-99) mg/dL POC Glucose (mg/dL) (70-110) mg/dL Calcium (8.4-10.2) mg/dL Urine Protein 2+ H (Negative) Urine Blood Large H (Negative) Ur Leukocyte Esterase Small H (Negative) Urine RBC >182 H (0-5) /hpf Urine WBC 8 H (0-5) /hpf Calcium Oxalate Crystal Occasional H (None) /hpf Amorphous Sediment Rare H (None) /hpf Urine Bacteria Rare H (None) /hpf Urine Mucus Rare H (None) /hpf
--- NOTE | 2022-02-26 11:56 | P.PN ---
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 Past medical history significant for bacteremia with blood cultures from [facility] positive for Serratia marcescens, recent history of colitis and splenomegaly likely splenic infarct, anxiety, PTSD with history of self mutilation. POD #8 Aortic valve replacement with 23 mm On-X mechanical aortic valve, patch closure of aortotomy with involving pericardium, debridement of some annular infected tissue in aortic outflow tract, ligation of left atrial appendage with 35 mm AtriCure clip. Postoperative acute blood loss anemia and thrombocytopenia, expected given her preop anemia, hemodilution and cardiopulmonary bypass. The patient was seen and examined at her bedside on the cardiac stepdown unit today 02/26/2022. She denies any complaints of pain or shortness of breath at this time, she denies any further episodes of diarrhea although she is complaining of some hematuria. Denies any further complaints of nausea and reports that the Zofran 8 mg by mouth at 1900 helped. Currently she is sitting up to the bedside chair, is awake, alert, oriented 3 and is in no acute apparent distress. The patient reports this is the best she has felt since her surgery. Oxygen saturations are 97% on room air and she is achieving slightly over 1500 mL on her incentive spirometry with encouragement. Remote telemetry showing normal sinus rhythm heart rate 74 BPM. She remains hemodynamically stable and is currently on no inotropic or pressor support. Laboratory results this morning show a WBC count of 5.1, hemoglobin 7.3, hematocrit 22.6, platelets 197, sodium 136, potassium 4.3, BUN 21, creatinine 0.78, glucose 151, LCMC 7.5 and magnesium 1.7. PT 16.1 and INR 1.6 today. Her PT was 13.8 and INR 1.3 yesterday and was given Coumadin 7.5 mg by mouth 1. Right arm PICC line remains in place and is receiving cefepime 2 g IV piggyback every 8 hours for history of Serratia marcescens bacteremia, antibiotics being managed by infectious disease. Most recent blood cultures from 02/11/2022 showed no growth and her heart valve Gram stain culture and anaerobic culture showed no growth. She has been afebrile the last 24 hours with a T-max temperature 98.2F. She reports she has been up ambulating in the cardiac stepdown unit hallway with standby assistance from nursing and therapy staff. Objective - Vital Signs Vital signs: Vital Signs Temp 98.0 F 02/26/22 07:50 Pulse 87 02/26/22 07:53 Resp 16 02/26/22 07:50 BP 136/80 02/26/22 07:50 Pulse Ox 97 02/26/22 07:50 FiO2 35 02/22/22 04:00 Intake & Output 02/25/22 02/26/22 02/26/22 18:59 06:59 18:59 Intake Total 690 500 Output Total 1908 1850 550 Balance -1218 -1350 -550 Weight 74.8 kg Intake: Oral 690 500 Output: Urine 1900 1850 550 Stool 8 Other: Voiding Method Toilet Toilet Toilet ABP, PAP, CO, CI - Last Documented Arterial Blood Pressure 137/59 Pulmonary Artery Pressure 26/8 Cardiac Output 6.5 Cardiac Index 3.5 - Exam CONSTITUTIONAL: Sitting up to the bedside chair on the cardiac stepdown unit, appears comfortable, cooperative, no apparent acute distress. HEENT: Neck is supple, no JVD, no lymphadenopathy. RESPIRATORY: Lungs sounds essentially clear throughout, diminished to his bilateral bases. Respirations are symmetrical and nonlabored. Currently oxygen saturations 97% on room air. Strong cough. Achieving 1500 mL on her incentive spirometry with much encouragement. CARDIOVASCULAR: Regular rhythm and rate. S1 and S2 present with mechanical valvular click, negative for S3, gallop or murmur. Sternum is stable. Palpable peripheral pulses bilaterally, trace edema to her bilateral lower extremities. No calf pain or tenderness noted. Heart hugger in place and she is demonstrating appropriate use . Knee-high DAVI hose and sequential compression devices in place to her bilateral lower extremities. Remote telemetry showing normal sinus rhythm heart rate 74 BPM. GASTROINTESTINAL: Abdomen soft, nontender, nondistended. Active bowel sounds present 4 quadrants. Tolerating diet. No guarding or rigidity. Passing flatus. Denies nausea at this time. Bowel movement yesterday 02/25/2022. No diarrhea, occasional loose stool. GENITOURINARY: Continues to void. Urine output 800 mL in the last 8 hours. INTEGUMENTARY: Skin is warm and dry with no evidence of clubbing or cyanosis. Midline sternal incision clean dry and well approximated, covered with dry intact dressing. NEUROLOGIC: Cranial nerves II through XII intact. No focal deficits. MUSKULOSKELETAL: Able to move all extremities, strength equal bilaterally. PSYCHIATRIC: Alert and oriented to person place and time, appropriate affect, intact judgment and insight. - Allied health notes Allied health notes reviewed: nursing - Labs CBC & Chem 7: 02/26/22 08:00 02/26/22 08:00 Labs: Abnormal Lab Results - Last 24 Hours (Table) 02/25/22 02/25/22 02/25/22 Range/Units 08:54 08:54 08:54 RBC 2.50 L (3.80-5.40) m/uL Hgb 7.0 L (11.4-16.0) gm/dL Hct 21.4 L (34.0-46.0) % RDW 20.6 H (11.5-15.5) % PT 13.8 H (9.0-12.0) sec INR 1.3 H (<1.2) BUN 22 H (7-17) mg/dL Glucose 107 H (74-99) mg/dL POC Glucose (mg/dL) (70-110) mg/dL Calcium 7.6 L (8.4-10.2) mg/dL Magnesium 1.3 L (1.6-2.3) mg/dL 02/25/22 02/25/22 02/25/22 Range/Units 11:50 17:01 20:34 RBC (3.80-5.40) m/uL Hgb (11.4-16.0) gm/dL Hct (34.0-46.0) % RDW (11.5-15.5) % PT (9.0-12.0) sec INR (<1.2) BUN (7-17) mg/dL Glucose (74-99) mg/dL POC Glucose (mg/dL) 129 H 137 H 134 H (70-110) mg/dL Calcium (8.4-10.2) mg/dL Magnesium (1.6-2.3) mg/dL 02/26/22 02/26/22 Range/Units 06:11 08:00 RBC 2.64 L (3.80-5.40) m/uL Hgb 7.3 L (11.4-16.0) gm/dL Hct 22.6 L (34.0-46.0) % RDW 21.1 H (11.5-15.5) % PT (9.0-12.0) sec INR (<1.2) BUN (7-17) mg/dL Glucose (74-99) mg/dL POC Glucose (mg/dL) 131 H (70-110) mg/dL Calcium (8.4-10.2) mg/dL Magnesium (1.6-2.3) mg/dL - Imaging and Cardiology Chest x-ray: report reviewed, image reviewed Assessment and Plan Assessment: 1. 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 Serratia bacteremia, sepsis on cefepime 2 g IV piggyback every 8 hours managed by infectious disease, blood cultures from 02/11/2022 showed no growth after 144 hours, aortic valve Gram stain cultures show no growth after 3 days, anaerobic culture results showed no anaerobes seen 3. Acute hypoxic respiratory failure requiring mechanical ventilation 4. Altered mental status this admission, resolved 5. Acute on chronic anemia 6. Acute kidney injury, resolved 7. Recent history of colitis and splenomegaly likely splenic infarct, status post colonoscopy which showed normal appearing colon from the rectum to the cecum with no evidence of colitis or colorectal aplasia 8. History of anxiety 9. PTSD with history of self mutilation 10. Chronic dental abscess tooth #15, status post surgical extraction of tooth 11. Postoperative acute blood loss anemia, an expected outcome given her preoperative anemia, hemodilution and cardiopulmonary bypass 12. Suspected IV drug abuse per patient's father 13. Diarrhea, expected given her history of preoperative and history of preoperative colitis, resolved Plan: 1. Continue to maximize medical therapy with low-dose aspirin, statin, and beta bryan. Will increase metoprolol tartrate as tolerated. 2. Encourage incentive spirometry use 10 times every hour while awake. Br onchodilators per pulmonology/critical care medicine. 3. Increase activity, ambulate as tolerated. PT/OT/cardiac rehab following. 4. Will monitor daily labs and chest x-rays. Electrolyte replacement per protocol. 5. Pain control with current medication regimen. Avoid nephrotoxic agents. 6. GI and DVT prophylaxis. Continue Lovenox 40 mg subcu daily until INR is therapeutic. 7. Coumadin 7.5 mg by mouth today, PT is 16.1 and INR is 1.6 today. The patient was given a dose of Coumadin 7.5 mg by mouth 1 yesterday for an INR of 1.3. Goal INR for first 3 months 2.0-3.0, after 3 months goal INR 1.5-2. Continue daily PT and INR. 8. Insulin management per primary care service. Patient is a nondiabetic with a preoperative hemoglobin A1c 5.9%. 9. Continue to record strict accurate intake and output. Daily weights. 10. Decrease Lasix to 40 mg IV daily and potassium chloride 10 mEq by mouth daily while on Lasix. Zaroxolyn 2.5 mg by mouth 1 now. 11. Continue cefepime 2 g IV piggyback every 8 hours managed by infectious disease. Aortic valve cultures negative. Aortic valve pathology demonstrated sclerotic and edematous valvular tissue with focal acute and chronic inflammation and associated fibrinous debris, negative for malignancy. Interventional radiology placed a PICC line yesterday for long-term antibiotic treatment on an outpatient basis. Outpatient IV therapy is being arranged by case aide/social work. 12. Shower daily. 13. Case management/social work is arranging on outpatient IV antibiotic infusion with home care. 14. Continue Zofran 8 mg by mouth daily@1900 for her complaints of nausea after taking her Coumadin. 15. Send urinalysis with reflex culture for reports of hematuria. 16. More recommendations to follow based on patient's clinical course. Time with Patient: Greater than 30
[2022-02-26] MEDS: metOLazone 2.5 MG TAB PO SCH (13:16)
--- NOTE | 2022-02-26 14:57 | P.PN ---
Subjective Progress Note Date: 02/26/22 Principal diagnosis: Gram-negative bacteremia and aortic valve endocarditis Patient is a 36 year female presenting to the hospital with acute respiratory failure in this patient to have evidence of gram-negative bacteremia and there was concern for vegetation on the aortic valve , patient did have extension of the infected tooth and colonoscopy as a part of preparation for the aortic valve replacement which was completed 02/18/2022 on today's evaluation that is 02/26/2022, the patient remains to be afebrile,the patient is breathing comfortably on room air, patient denies chest pain shortness of breath or cough, the patient denies abdominal pain and no diarrhea patient complaining of some dizziness on standing up and on walk nursing noticed no postural hypotension Objective - Vital Signs Vital signs: Vital Signs Temp 97.9 F 02/26/22 13:01 Pulse 78 02/26/22 13:42 Resp 17 02/26/22 13:42 BP 137/82 02/26/22 13:42 Pulse Ox 99 02/26/22 13:42 FiO2 35 02/22/22 04:00 Intake & Output 02/25/22 02/26/22 02/26/22 18:59 06:59 18:59 Intake Total 333 084 3602 Output Total 1908 1850 2250 Balance -1218 -6549 -640 Weight 74.8 kg Intake: Oral 309 077 9451 Output: Urine 1900 1850 2250 Stool 8 Other: Voiding Method Toilet Toilet Toilet ABP, PAP, CO, CI - Last Documented Arterial Blood Pressure 137/59 Pulmonary Artery Pressure 26/8 Cardiac Output 6.5 Cardiac Index 3.5 - Exam GENERAL DESCRIPTION: Middle-aged female lying in bed in no distress RESPIRATORY SYSTEM: Unlabored breathing , decreased breath sounds at bases HEART: S1 S2 regular rate and rhythm , ABDOMEN: Soft , no tenderness EXTREMITIES: No edema feet - Labs CBC & Chem 7: 02/26/22 08:00 02/26/22 08:00 Labs: Abnormal Lab Results - Last 24 Hours (Table) 02/25/22 02/25/22 02/26/22 Range/Units 17:01 20:34 06:11 RBC (3.80-5.40) m/uL Hgb (11.4-16.0) gm/dL Hct (34.0-46.0) % RDW (11.5-15.5) % PT (9.0-12.0) sec INR (<1.2) Sodium (137-145) mmol/L BUN (7-17) mg/dL Glucose (74-99) mg/dL POC Glucose (mg/dL) 137 H 134 H 131 H (70-110) mg/dL Calcium (8.4-10.2) mg/dL Urine Protein (Negative) Urine Blood (Negative) Ur Leukocyte Esterase (Negative) Urine RBC (0-5) /hpf Urine WBC (0-5) /hpf Calcium Oxalate Crystal (None) /hpf Amorphous Sediment (None) /hpf Urine Bacteria (None) /hpf Urine Mucus (None) /hpf 02/26/22 02/26/22 02/26/22 Range/Units 08:00 08:00 08:00 RBC 2.64 L (3.80-5.40) m/uL Hgb 7.3 L (11.4-16.0) gm/dL Hct 22.6 L (34.0-46.0) % RDW 21.1 H (11.5-15.5) % PT 16.1 H (9.0-12.0) sec INR 1.6 H (<1.2) Sodium 136 L (137-145) mmol/L BUN 21 H (7-17) mg/dL Glucose 151 H (74-99) mg/dL POC Glucose (mg/dL) (70-110) mg/dL Calcium 7.5 L (8.4-10.2) mg/dL Urine Protein (Negative) Urine Blood (Negative) Ur Leukocyte Esterase (Negative) Urine RBC (0-5) /hpf Urine WBC (0-5) /hpf Calcium Oxalate Crystal (None) /hpf Amorphous Sediment (None) /hpf Urine Bacteria (None) /hpf Urine Mucus (None) /hpf 02/26/22 Range/Units 09:39 RBC (3.80-5.40) m/uL Hgb (11.4-16.0) gm/dL Hct (34.0-46.0) % RDW (11.5-15.5) % PT (9.0-12.0) sec INR (<1.2) Sodium (137-145) mmol/L BUN (7-17) mg/dL Glucose (74-99) mg/dL POC Glucose (mg/dL) (70-110) mg/dL Calcium (8.4-10.2) mg/dL Urine Protein 2+ H (Negative) Urine Blood Large H (Negative) Ur Leukocyte Esterase Small H (Negative) Urine RBC >182 H (0-5) /hpf Urine WBC 8 H (0-5) /hpf Calcium Oxalate Crystal Occasional H (None) /hpf Amorphous Sediment Rare H (None) /hpf Urine Bacteria Rare H (None) /hpf Urine Mucus Rare H (None) /hpf Assessment and Plan (1) Sepsis Current Visit: Yes Status: Acute Code(s): A41.9 - SEPSIS, UNSPECIFIED ORGANISM SNOMED Code(s): 42920051 Plan: 1patient presented to hospital with sepsis in this patient did have a fever tachycardia tachypnea with evidence of vegetation on aortic wall likely secondary to endocarditis, blood culture has been finalized and Serratia from her repeat blood culture had been negative as 2-patient is status post aortic valve replacment surgery on 02/18/2022 , OR culture has been negative so for 2 patient slowly clinical improving and continue with the cefepime the plan for 6 weeks of treatment Time with Patient: Less than 30
[2022-02-26] MEDS ORDERED: SIMETHICONE 80 MG CHEWABLE PO PRN (15:28)
--- NOTE | 2022-02-26 15:34 | P.PN ---
Subjective Progress Note Date: 02/26/22 This is a pleasant 36 year old female who is monitored on step down unit, she is postoperative day #7 for AVR secondary to endocarditis with recent history of bacteremia with Serratia Mercescens at [facility]. Patient with history of colitis and also splenomegaly. Her main complaint today is diarrhea ongoing which she had also experienced postopertively. C.Dif found to be negative. She had a dose of immodium today. Denies dysuria. Denies any shortness of breath, does have some incisional chest discomfort as well as discomfort to chest tube site incisions. Chest xray today showing increasing right lower lobe airspace opacity possibly a developing atelectasis versus pneumonia with similar left lo wer lobe opacity. Incentive spirometer at bedside, encouraged use. Patient states she has not been as ambulatory as she would like and states, PT last evaluated the patient on the . Labs today showing a hemoglobin level of 7.0 which is stable, INR today 1.3. Magnesium level today is 1.3 and patient did receive 3 bags of magnesium as well as calcium gluconate 2 grams. Patient continues on IV lasix twice a day with a urinary output of 2L in the last 24 hours. She remains afebrile, heart rate in the 80s, blood pressure 138/68, 98% room air. 02/26/2022 Patient evaluated today sitting up in chair. She was able to shower today independently. Waiting to ambulate. She did take a dose of immodium yesterday as she was having loose stools. Today her abdomen is distended she is tympanic. States she is passing alot of gas today, no BM yet today. Bladder scan complete, no urinary retention found. She is requesting simethicone which will be added. She is taking tylenol more frequently and states her pain has been better controlled. Also states the zofran she had at bedtime helped. She is using incentive spirometer as recommended. A1C consistent with prediabetes, blood glucose in the 130s. Magnesium today 1.7, which was supplemented. Patient states her urine seems more red than prior, urinalysis was done showing large blood with greater than 182 RBCs also occasional calcium oxalate crystals found. Hemoglobin today 7.3, INR 1.6, continues on coumadin. Review of Systems Constitutional: Denied any fatigue denied any fever. Cardio vascular: denied any chest pain, palpitations. Reports incisional chest discomfort. Gastrointestinal: denied any nausea, vomiting. Reports abdominal distention and gas. Pulmonary: Denied any shortness of breath cough Neurologic denied any new focal deficits All inpatient medications were reviewed and appropriate changes in these medications as dictated in the interval history and assessment and plan. PHYSICAL EXAMINATION: GENERAL: The patient is alert and oriented x3, not in any acute distress. Well developed, well nourished. HEENT: Pupils are round and equally reacting to light. EOMI. No scleral icterus. No conjunctival pallor. Normocephalic, atraumatic. No pharyngeal erythema. No thyromegaly. CARDIOVASCULAR: S1 and S2 present. No murmurs, rubs, or gallops. PULMONARY: Chest is clear to auscultation, no wheezing or crackles. ABDOMEN: Soft, nontender, distended, tympanic, hypoactive bowel sounds. No palpable organomegaly. MUSCULOSKELETAL: No joint swelling or deformity. EXTREMITIES: No cyanosis, clubbing, or pedal edema. NEUROLOGICAL: Gross neurological examination did not reveal any focal deficits. SKIN: No rashes. Post surgical incisions intact. Assessment and plan Assessment Subacute bacterial endocarditis Severe aortic regurgitation secondary to above, status post aortic valve replacement with mechanical valve on 02/18 Sepsis with fever and tachypnea, resolved Acute hypoxic respiratory failure requiring intubation and mechanical ventilation, post extubation and currently on room air. Metabolic encephalopathy, resolved Acute pulmonary edema, could be acute CHF versus RDS, resolved Severe anemia, microcytic hyperchromic requiring blood transfusion 4 Elevated troponin' Hypomagnesemia secondary to poor oral intake History of recent colitis History of splenectomy Recent tooth extraction GI Prophylaxis DVT Prophylaxis: On Coumadin, patient is also on lovenox bridge for subtherapeutic INR Full Code Plan Continue to encourage ambulation, incentive spirometery Continue IV lasix, metolazone with strict intake and output Replace magnesium Multiple consultations including cardiothoracic, cardiology, pulmonary image processing engineer, hematology, infectious disease Repeat Labs in AM PICC line in place, 6 weeks of antibiotic therapy on discharge recommended Zofran has been added today for nausea, continues on protonix BID The impression and plan of care has been dictated by Jena Duckworth, Nurse Practitioner as directed. Dr. Paola MD I have performed a history and physical examination and medical decision making of this patient, discussed the same with the dictator, and agree with the di ctators assessment and plan as written, documented as a scribe. Based on total visit time, I have performed more than 50% of this visit. Objective - Vital Signs Vital signs: Vital Signs Temp 97.9 F 02/26/22 13:01 Pulse 78 02/26/22 13:42 Resp 17 02/26/22 13:42 BP 137/82 02/26/22 13:42 Pulse Ox 99 02/26/22 13:42 FiO2 35 02/22/22 04:00 Intake & Output 02/25/22 02/26/22 02/26/22 18:59 06:59 18:59 Intake Total 263 869 7354 Output Total 1908 1850 2250 Balance -1218 -1350 -640 Weight 74.8 kg Intake: Oral 144 178 6635 Output: Urine 1900 1850 2250 Stool 8 Other: Voiding Method Toilet Toilet Toilet ABP, PAP, CO, CI - Last Documented Arterial Blood Pressure 137/59 Pulmonary Artery Pressure 26/8 Cardiac Output 6.5 Cardiac Index 3.5 - Labs CBC & Chem 7: 02/26/22 08:00 02/26/22 08:00 Labs: Abnormal Lab Results - Last 24 Hours (Table) 02/25/22 02/25/22 02/26/22 Range/Units 17:01 20:34 06:11 RBC (3.80-5.40) m/uL Hgb (11.4-16.0) gm/dL Hct (34.0-46.0) % RDW (11.5-15.5) % PT (9.0-12.0) sec INR (<1.2) Sodium (137-145) mmol/L BUN (7-17) mg/dL Glucose (74-99) mg/dL POC Glucose (mg/dL) 137 H 134 H 131 H (70-110) mg/dL Calcium (8.4-10.2) mg/dL Urine Protein (Negative) Urine Blood (Negative) Ur Leukocyte Esterase (Negative) Urine RBC (0-5) /hpf Urine WBC (0-5) /hpf Calcium Oxalate Crystal (None) /hpf Amorphous Sediment (None) /hpf Urine Bacteria (None) /hpf Urine Mucus (None) /hpf 02/26/22 02/26/22 02/26/22 Range/Units 08:00 08:00 08:00 RBC 2.64 L (3.80-5.40) m/uL Hgb 7.3 L (11.4-16.0) gm/dL Hct 22.6 L (34.0-46.0) % RDW 21.1 H (11.5-15.5) % PT 16.1 H (9.0-12.0) sec INR 1.6 H (<1.2) Sodium 136 L (137-145) mmol/L BUN 21 H (7-17) mg/dL Glucose 151 H (74-99) mg/dL POC Glucose (mg/dL) (70-110) mg/dL Calcium 7.5 L (8.4-10.2) mg/dL Urine Protein (Negative) Urine Blood (Negative) Ur Leukocyte Esterase (Negative) Urine RBC (0-5) /hpf Urine WBC (0-5) /hpf Calcium Oxalate Crystal (None) /hpf Amorphous Sediment (None) /hpf Urine Bacteria (None) /hpf Urine Mucus (None) /hpf 02/26/22 Range/Units 09:39 RBC (3.80-5.40) m/uL Hgb (11.4-16.0) gm/dL Hct (34.0-46.0) % RDW (11.5-15.5) % PT (9.0-12.0) sec INR (<1.2) Sodium (137-145) mmol/L BUN (7-17) mg/dL Glucose (74-99) mg/dL POC Glucose (mg/dL) (70-110) mg/dL Calcium (8.4-10.2) mg/dL Urine Protein 2+ H (Negative) Urine Blood Large H (Negative) Ur Leukocyte Esterase Small H (Negative) Urine RBC >182 H (0-5) /hpf Urine WBC 8 H (0-5) /hpf Calcium Oxalate Crystal Occasional H (None) /hpf Amorphous Sediment Rare H (None) /hpf Urine Bacteria Rare H (None) /hpf Urine Mucus Rare H (None) /hpf Assessment and Plan Time with Patient: Less than 30
[2022-02-26] MEDS: MAGNESIUM SULFATE-D5W PMX 1 GM in DEXTROSE/WATER 1 100ML.BAG IVPB SCH ×2 (15:59→17:12)
[2022-02-26 16:21] LABS: Glucose,Whole Blood 165 mg/dL (70-110)
[2022-02-26] MEDS ORDERED: WARFARIN 7.5 MG TAB PO ONE (18:00)
[2022-02-26] MEDS: ONDANSETRON ODT 8 MG TAB.RAPDIS PO SCH (18:50)
[2022-02-26 20:33] LABS: Glucose,Whole Blood 157 mg/dL (70-110)
[2022-02-27] MEDS: CEFEPIME 2 GM in SODIUM CHLORIDE 0.9% 100 ML IVPB SCH ×4 (00:56→23:37)
[2022-02-27] MEDS: ACETAMINOPHEN TAB 325 MG TAB PO PRN ×6 (00:56→23:36)
[2022-02-27 06:12] LABS: Glucose,Whole Blood 127 mg/dL (70-110)
[2022-02-27] MEDS: INSULIN ASPART (NovoLOG) 100 UNIT/ML VIAL SQ SCH ×4 (06:25→21:27)
[2022-02-27] MEDS: FERROUS SULFATE 325 MG TAB PO SCH (06:27)
[2022-02-27] MEDS: PANTOPRAZOLE 40 MG TABLET PO SCH ×2 (06:27→17:20)
[2022-02-27 07:15] LABS: Anisocytosis Moderate; HCT 23.3 % (34.0-46.0); HGB 7.4 gm/dL (11.4-16.0); Hypochromasia Moderate; MCH 27.2 pg (25.0-35.0); MCHC 31.9 g/dL (31.0-37.0); MCV 85.2 fL (80.0-100.0); Mean Platelet Volume 7.6; Microcytosis Slight; Platelet Count 208 k/uL (150-450); Poikilocytosis Slight; RBC 2.73 m/uL (3.80-5.40); RDW 21.4 % (11.5-15.5); WBC 5.7 k/uL (3.8-10.6)
[2022-02-27 07:21] LABS: INR 1.7 (<1.2); Prothrombin Time 17.6 sec (9.0-12.0)
[2022-02-27 07:27] LABS: African American GFR (CKD) >90 (>60 ml/min/1.73 sqM); Anion Gap 4 mmol/L; Blood Urea Nitrogen 21 mg/dL (7-17); Calcium 7.9 mg/dL (8.4-10.2); Carbon Dioxide 28 mmol/L (22-30); Chloride 102 mmol/L (98-107); Glucose 109 mg/dL (74-99); Magnesium 1.8 mg/dL (1.6-2.3); Non-African American GFR(CKD) >90 (>60 ml/min/1.73 sqM); Potassium 4.4 mmol/L (3.5-5.1); Sodium 134 mmol/L (137-145)
[2022-02-27] MEDS: FUROSEMIDE 10 MG/ML 4 ML VIAL IV SCH ×2 (08:06→09:45)
[2022-02-27] MEDS ORDERED: ASCORBIC ACID 500 MG TAB PO SCH (09:00)
[2022-02-27] MEDS ORDERED: FUROSEMIDE 20 MG TAB PO SCH (09:30)
--- NOTE | 2022-02-27 09:39 | P.PN ---
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 Past medical history significant for bacteremia with blood cultures from [facility] positive for Serratia marcescens, recent history of colitis and splenomegaly likely splenic infarct, anxiety, PTSD with history of self mutilation. POD #9 Aortic valve replacement with 23 mm On-X mechanical aortic valve, patch closure of aortotomy with involving pericardium, debridement of some annular infected tissue in aortic outflow tract, ligation of left atrial appendage with 35 mm AtriCure clip. Postoperative acute blood loss anemia and thrombocytopenia, expected given her preop anemia, hemodilution and cardiopulmonary bypass. The patient was seen and examined today 02/27/2022 at her bedside on the cardiac stepdown unit. She denies any complaints of pain or shortness of breath at this time, although reports she is still having bouts of nausea with taking some of her medications. She reports that the Zofran 8 mg by mouth at at bedtime is helping with the nausea in the evening. Denies any further complaints of diarrhea. Currently she is sitting up to the bedside chair, is awake, alert, oriented 3 and is in no acute distress. She remains hemodynamically stable and is currently on no inotropic or partial support. Oxygen saturations are 96% on room air and she is achieving 1500 mL on her incentive spirometry with encouragement. Remote telemetry showing normal sinus rhythm heart rate 75 BPM. She reports she has been up and plating in the cardiac stepdown unit hallway with standby assistance from nursing and therapy staff. She did report some complaints of dizziness with her first block in the morning yesterday, although no further complaints of dizziness at this time. The patient was given Lasix 40 mg IV and Zaroxolyn 2.5 mg by mouth yesterday with good diuresis and urine output in the last 8 hours has been 2.8 L. Laboratory results this morning show a WBC count of 5.7, hemoglobin 7.4, hematocrit 23.3, platelets 208, sodium 134, potassium 4.4, BUN 21, creatinine 0.74, glucose 109, calcium 7.9 and magnesium 1.8. Her PT was 16.1 and INR 1.6 yesterday and was given Coumadin 7.5 mg by mouth 1. Today her PT is 17.6 and INR 1.7. She will be discharged home on Coumadin 5 mg by mouth daily with monitored outpatient PT and INRs. Right arm PICC line remains in place with cefepime 2 g every 8 hours IV piggyback for antibiotic coverage managed by infectious disease. Infectious disease note states she will need 6 weeks of IV antibiotics for a preoperative blood culture positive for Serratia marcescens. She has been afebrile the last 24 hours. Objective - Vital Signs Vital signs: Vital Signs Temp 98.0 F 02/27/22 04:00 Pulse 76 02/27/22 04:00 Resp 18 02/27/22 04:00 BP 134/79 02/27/22 04:00 Pulse Ox 98 02/27/22 08:26 FiO2 35 02/22/22 04:00 Intake & Output 02/26/22 02/27/22 02/27/22 18:59 06:59 18:59 Intake Total 1850 1780 240 Output Total 2550 2800 Balance -700 -1020 240 Weight 74.9 kg Intake: IV 100 Cefepime 2 gm In Sodium 100 Chloride 0.9% 100 ml @ 25 mls/hr IVPB Q8HR [facility] Rx# :[id number] Intake, IV Titration 100 Amount Cefepime 2 gm In Sodium 100 Chloride 0.9% 100 ml @ 25 mls/hr IVPB Q8HR [facility] Rx# :[id number] Oral 1850 1580 240 Output: Urine 2550 2800 Other: Voiding Method Toilet Toilet ABP, PAP, CO, CI - Last Documented Arterial Blood Pressure 137/59 Pulmonary Artery Pressure 26/8 Cardiac Output 6.5 Cardiac Index 3.5 - Exam CONSTITUTIONAL: Sitting up to the bedside chair on the cardiac stepdown unit, appears comfortable, cooperative, no apparent acute distress. HEENT: Neck is supple, no JVD, no lymphadenopathy. RESPIRATORY: Lungs sounds essentially clear throughout, diminished to his bilateral bases. Respirations are symmetrical and nonlabored. Currently oxygen saturations 96% on room air. Strong cough. Achieving 1500 mL on her incentive spirometry with much encouragement. CARDIOVASCULAR: Regular rhythm and rate. S1 and S2 present with mechanical valvular click, negative for S3, gallop or murmur. Sternum is stable. Palpable peripheral pulses bilaterally, trace edema to her bilateral lower extremities. No calf pain or tenderness noted. Heart hugger in place and she is demonstrating appropriate use . Knee-high DAVI hose and sequential compression devices in place to her bilateral lower extremities. Remote telemetry showing normal sinus rhythm heart rate 75 BPM. GASTROINTESTINAL: Abdomen soft, nontender, nondistended. Active bowel sounds present 4 quadrants. Tolerating diet. No guarding or rigidity. Passing flatus. Denies nausea at this time. Bowel movement this a.m. 02/27/2022. No diarrhea, occasional soft stool. GENITOURINARY: Continues to void. Urine output 2800 mL in the last 8 hours. INTEGUMENTARY: Skin is warm and dry with no evidence of clubbing or cyanosis. Midline sternal incision clean dry and well approximated, covered with dry intact dressing. NEUROLOGIC: Cranial nerves II through XII intact. No focal deficits. MUSKULOSKELETAL: Able to move all extremities, strength equal bilaterally. PSYCHIATRIC: Alert and oriented to person place and time, appropriate affect, intact judgment and insight. - Allied health notes Allied health notes reviewed: nursing - Labs CBC & Chem 7: 02/27/22 06:40 02/27/22 06:40 Labs: Abnormal Lab Results - Last 24 Hours (Table) 02/26/22 02/26/22 02/26/22 Range/Units 08:00 09:39 16:19 RBC (3.80-5.40) m/uL Hgb (11.4-16.0) gm/dL Hct (34.0-46.0) % RDW (11.5-15.5) % PT (9.0-12.0) sec INR (<1.2) Sodium 136 L (137-145) mmol/L BUN 21 H (7-17) mg/dL Glucose 151 H (74-99) mg/dL POC Glucose (mg/dL) 165 H (70-110) mg/dL Calcium 7.5 L (8.4-10.2) mg/dL Urine Protein 2+ H (Negative) Urine Blood Large H (Negative) Ur Leukocyte Esterase Small H (Negative) Urine RBC >182 H (0-5) /hpf Urine WBC 8 H (0-5) /hpf Calcium Oxalate Crystal Occasional H (None) /hpf Amorphous Sediment Rare H (None) /hpf Urine Bacteria Rare H (None) /hpf Urine Mucus Rare H (None) /hpf 02/26/22 02/27/22 02/27/22 Range/Units 20:31 06:11 06:40 RBC 2.73 L (3.80-5.40) m/uL Hgb 7.4 L (11.4-16.0) gm/dL Hct 23.3 L (34.0-46.0) % RDW 21.4 H (11.5-15.5) % PT (9.0-12.0) sec INR (<1.2) Sodium (137-145) mmol/L BUN (7-17) mg/dL Glucose (74-99) mg/dL POC Glucose (mg/dL) 157 H 127 H (70-110) mg/dL Calcium (8.4-10.2) mg/dL Urine Protein (Negative) Urine Blood (Negative) Ur Leukocyte Esterase (Negative) Urine RBC (0-5) /hpf Urine WBC (0-5) /hpf Calcium Oxalate Crystal (None) /hpf Amorphous Sediment (None) /hpf Urine Bacteria (None) /hpf Urine Mucus (None) /hpf 02/27/22 02/27/22 Range/Units 06:40 06:40 RBC (3.80-5.40) m/uL Hgb (11.4-16.0) gm/dL Hct (34.0-46.0) % RDW (11.5-15.5) % PT 17.6 H (9.0-12.0) sec INR 1.7 H (<1.2) Sodium 134 L (137-145) mmol/L BUN 21 H (7-17) mg/dL Glucose 109 H (74-99) mg/dL POC Glucose (mg/dL) (70-110) mg/dL Calcium 7.9 L (8.4-10.2) mg/dL Urine Protein (Negative) Urine Blood (Negative) Ur Leukocyte Esterase (Negative) Urine RBC (0-5) /hpf Urine WBC (0-5) /hpf Calcium Oxalate Crystal (None) /hpf Amorphous Sediment (None) /hpf Urine Bacteria (None) /hpf Urine Mucus (None) /hpf Assessment and Plan Assessment: 1. 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 Serratia bacteremia, sepsis on cefepime 2 g IV piggyback every 8 hours managed by infectious disease, blood cultures from 02/11/2022 showed no growth after 144 hours, aortic valve Gram stain cultures show no growth after 3 days, anaerobic culture results showed no anaerobes seen 3. Acute hypoxic respiratory failure requiring mechanical ventilation 4. Altered mental status this admission, resolved 5. Acute on chronic anemia 6. Acute kidney injury, resolved 7. Recent history of colitis and splenomegaly likely splenic infarct, status post colonoscopy which showed normal appearing colon from the rectum to the cecum with no evidence of colitis or colorectal aplasia 8. History of anxiety 9. PTSD with history of self mutilation 10. Chronic dental abscess tooth #15, status post surgical extraction of tooth 11. Postoperative acute blood loss anemia, an expected outcome given her preoperative anemia, hemodilution and cardiopulmonary bypass 12. Suspected IV drug abuse per patient's father 13. Diarrhea, expected given her history of preoperative and history of preoperative colitis, resolved Plan: 1. Continue to maximize medical therapy with low-dose aspirin, statin, and beta bryan. Will increase metoprolol tartrate as tolerated. 2. Encourage incentive spirometry use 10 times every hour while awake. Bronchodilators per pulmonology/critical care medicine. 3. Increase activity, ambulate as tolerated. PT/OT/cardiac rehab following. 4. Will monitor daily labs and chest x-rays. Electrolyte replacement per protocol. 5. Pain control with current medication regimen. Avoid nephrotoxic agents. 6. GI and DVT prophylaxis. 7. Coumadin 5 mg by mouth today and daily, PT is 17.6 and INR is 1.7 today. The patient was given a dose of Coumadin 7.5 mg by mouth 1 yesterday for an INR of 1.6. Goal INR for first 3 months 2.0-3.0, after 3 months goal INR 1.5-2. Continue daily PT and INR. 8. Insulin management per primary care service. Patient is a nondiabetic with a preoperative hemoglobin A1c 5.9%. 9. Continue to record strict accurate intake and output. Daily weights. 10. Decrease Lasix to 20 mg by mouth daily. 11. Continue cefepime 2 g IV piggyback every 8 hours managed by infectious disease. Aortic valve cultures negative. Aortic valve pathology demonstrated sclerotic and edematous valvular tissue with focal acute and chronic inflammation and associated fibrinous debris, negative for malignancy. Interventional radiology placed a PICC line yesterday for long-term antibiotic treatment on an outpatient basis. Outpatient IV therapy is being arranged by egg caser/social work. 12. Shower daily. 13. Case management/social work is arranging on outpatient IV antibiotic infusion with home care. 14. Continue Zofran 8 mg by mouth daily@1900 for her complaints of nausea after taking her Coumadin. 15. Discharge planning is in place, anticipate discharge home within the next 24 hours with home health care and home IV antibiotic therapy. 16. More recommendations to follow based on patient's clinical course. Time with Patient: Greater than 30
[2022-02-27] MEDS: ASPIRIN 81 MG PO SCH (09:45)
[2022-02-27] MEDS: ENOXAPARIN 40 MG/0.4 ML SYRINGE SQ SCH (09:46)
[2022-02-27] MEDS: MAGNESIUM SULFATE-D5W PMX 1 GM in DEXTROSE/WATER 1 100ML.BAG IVPB SCH ×2 (09:46→16:04)
[2022-02-27] MEDS: METOPROLOL TARTRATE 25 MG TAB PO SCH ×2 (09:46→21:31)
[2022-02-27] MEDS: POTASSIUM CHLORIDE ER 10 MEQ TAB.ER.PRT PO SCH (09:46)
[2022-02-27] MEDS: ATORVASTATIN 20 MG TAB PO SCH (09:46)
[2022-02-27] MEDS: metOLazone 2.5 MG TAB PO SCH (09:47)
[2022-02-27] MEDS: CHOLESTYRAMINE (WITH SUGAR) 4 GM PACKET PO SCH ×2 (09:48→17:19)
[2022-02-27] MEDS: ESCITALOPRAM 5 MG TAB PO SCH (09:51)
[2022-02-27 11:48] LABS: Glucose,Whole Blood 129 mg/dL (70-110)
--- NOTE | 2022-02-27 12:49 | P.PN ---
Subjective Progress Note Date: 02/27/22 On 02/27/2022, seeing the patient for a follow-up. The patient is postop day #9 and the patient underwent an aortic valve replacement with a mechanical aortic valve. The patient is currently doing extremely well. Sitting up on a chair and she is quite comfortable. Her bacteremia has essentially recovered and the patient remains on IV cefepime. The patient will be receiving a PICC line today to continue her antibiotic treatment with IV cefepime 2 g every 8 hours. Infectious disease also on the case. The plan is to continue the antibiotics for total of 6 weeks. She's been afebrile for now. No focal neurological deficits. No nausea. No vomiting. No chest pain. Surgical wound is dry clean and intact. The patient is doing very well on her incentive spirometer more than 1500 mL and the pulse ox is currently 96% on room air oxygen. He denies having any chest pain or shortness of breath. No other significant events over the past 24 hours. The patient is afebrile and the patient is hemodynamically stable for now. No respiratory difficulties. Objective - Vital Signs Vital signs: Vital Signs Temp 98.7 F 02/27/22 08:00 Pulse 91 02/27/22 08:00 Resp 18 02/27/22 08:00 BP 140/82 02/27/22 08:00 Pulse Ox 98 02/27/22 08:26 FiO2 35 02/22/22 04:00 Intake & Output 02/26/22 02/27/22 02/27/22 18:59 06:59 18:59 Intake Total 1850 1780 240 Output Total 2550 2800 1700 Balance -700 -1020 -1460 Weight 74.9 kg 74.9 kg Intake: IV 100 Cefepime 2 gm In Sodium 100 Chloride 0.9% 100 ml @ 25 mls/hr IVPB Q8HR [facility] Rx# :[id number] Intake, IV Titration 100 Amount Cefepime 2 gm In Sodium 100 Chloride 0.9% 100 ml @ 25 mls/hr IVPB Q8HR REPLACED BY [facility] Rx# :[id number] Oral 1850 1580 240 Output: Urine 2550 2800 1700 Other: Voiding Method Toilet Toilet Toilet ABP, PAP, CO, CI - Last Documented Arterial Blood Pressure 137/59 Pulmonary Artery Pressure 26/8 Cardiac Output 6.5 Cardiac Index 3.5 - Exam CONSTITUTIONAL: Sitting up to the bedside chair on the cardiac stepdown unit, appears comfortable, cooperative, no apparent acute distress. HEENT: Neck is supple, no JVD, no lymphadenopathy. RESPIRATORY: Lungs sounds essentially clear throughout, diminished to his bilateral bases. Respirations are symmetrical and nonlabored. Currently oxygen saturations 96% on room air. Strong cough. Achieving 1500 mL on her incentive spirometry with much encouragement. CARDIOVASCULAR: Regular rhythm and rate. S1 and S2 present with mechanical valvular click, negative for S3, gallop or murmur. Sternum is stable. Palpable peripheral pulses bilaterally, trace edema to her bilateral lower extremities. No calf pain or tenderness noted. Heart hugger in place and she is demonstrating appropriate use . Knee-high DAVI hose and sequential compression devices in place to her bilateral lower extremities. Remote telemetry showing normal sinus rhythm heart rate 75 BPM. GASTROINTESTINAL: Abdomen soft, nontender, nondistended. Active bowel sounds present 4 quadrants. Tolerating diet. No guarding or rigidity. Passing flatus. Denies nausea at this time. Bowel movement this a.m. 02/27/2022. No diarrhea, occasional soft stool. GENITOURINARY: Continues to void. Urine output 2800 mL in the last 8 hours. INTEGUMENTARY: Skin is warm and dry with no evidence of clubbing or cyanosis. Midline sternal incision clean dry and well approximated, covered with dry intact dressing. NEUROLOGIC: Cranial nerves II through XII intact. No focal deficits. MUSKULOSKELETAL: Able to move all extremities, strength equal bilaterally. PSYCHIATRIC: Alert and oriented to person place and time, appropriate affect, intact judgment and insight. - Labs CBC & Chem 7: 02/27/22 06:40 02/27/22 06:40 Labs: Abnormal Lab Results - Last 24 Hours (Table) 02/26/22 02/26/22 02/27/22 Range/Units 16:19 20:31 06:11 RBC (3.80-5.40) m/uL Hgb (11.4-16.0) gm/dL Hct (34.0-46.0) % RDW (11.5-15.5) % PT (9.0-12.0) sec INR (<1.2) Sodium (137-145) mmol/L BUN (7-17) mg/dL Glucose (74-99) mg/dL POC Glucose (mg/dL) 165 H 157 H 127 H (70-110) mg/dL Calcium (8.4-10.2) mg/dL 02/27/22 02/27/22 02/27/22 Range/Units 06:40 06:40 06:40 RBC 2.73 L (3.80-5.40) m/uL Hgb 7.4 L (11.4-16.0) gm/dL Hct 23.3 L (34.0-46.0) % RDW 21.4 H (11.5-15.5) % PT 17.6 H (9.0-12.0) sec INR 1.7 H (<1.2) Sodium 134 L (137-145) mmol/L BUN 21 H (7-17) mg/dL Glucose 109 H (74-99) mg/dL POC Glucose (mg/dL) (70-110) mg/dL Calcium 7.9 L (8.4-10.2) mg/dL 02/27/22 Range/Units 11:46 RBC (3.80-5.40) m/uL Hgb (11.4-16.0) gm/dL Hct (34.0-46.0) % RDW (11.5-15.5) % PT (9.0-12.0) sec INR (<1.2) Sodium (137-145) mmol/L BUN (7-17) mg/dL Glucose (74-99) mg/dL POC Glucose (mg/dL) 129 H (70-110) mg/dL Calcium (8.4-10.2) mg/dL Assessment and Plan Plan: Acute bacterial infective endocarditis of the aortic valve, the patient was infected with gram-negative bacteria/Serratia marcescens Aortic valve replacement/mechanical valve and the patient had ligation of the left atrial appendage and the patient is postop day #9, the patient is on long- term articulation with warfarin the PT/INR is subtherapeutic Sepsis secondary to Serratia marcescens and infective endocarditis, recovered and the repeat blood cultures are negative and the patient is going to undergo a PICC line insertion today remains on IV cefepime 2 g every 8 hours Acute severe aortic regurgitation secondary to infective endocarditis, secondary to above Acute pulmonary edema secondary to above, recovered Acute hypoxic respiratory failure secondary to above, recovered Acute on chronic anemia, the patient is anemia of chronic disease Altered mentation probably related to metabolic encephalopathy, , recovered and the patient's mental status normalized Acute kidney injury, recovered and the renal function is stable for now 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 Splenic infarct probably related to septic embolism Questionable IV drug use History of a chronic dental abscess/sepsis post surgical extraction Plan PICC line insertion today Continue IV cefepime Repeat cultures are negative Lasix 20 mg by mouth daily Coumadin for long-term and coagulation and INR subtherapeutic for now Insulin sliding scale coverage for [employer] control PTOT Continue metoprolol 75 mg by mouth twice a day and the patient rhythm is sinus Continue Lipitor Continue aspirin Lovenox 40 mg subcu for DVT prophylaxis Continue iron orally We'll follow
--- NOTE | 2022-02-27 12:49 | CDI ---
Documentation Clarification Form Date: 02/27/2022 12:22:46 PM From: Briana Asencio CCS, CCDS Admit Date: 02/09/2022 02:38:00 AM Patient Name: Jacklyn Ayala Visit Number: [id number] Discharge Date: ATTENTION: The Clinical Documentation Specialists (CDI) and [facility] Coding Staff appreciate your assistance in clarifying documentation. Please respond to the clarification below the line at the bottom and electronically sign. The CDI & [facility] Coding staff will review the response and follow-up if needed. Please note: Queries are made part of the Legal Health Record. If you have any questions, please contact the author of this message via ITS. Dr. Cyrus Espino: Evidence of CHF with acute pulmonary edema related to the Aortic Insufficiency is documented in the Cardiology Progress Notes starting on 02/11. Also documented Acute pulmonary edema, could be acute CHF vs RDS is documented beginning with the 02/09 History & Physical and in subsequent Progress Notes. Additional information regarding the Type & Acuity of CHF is requested. History/Risk Factors per the 02/09 H/P: Anxiety, PTSD, Anemia status post Blood Infection, Back pain from a previous accident. Clinical Indicators: Presented to the ED on 02/08 with altered mental status and fever, confusion, decreased responsiveness and intoxication. Admit with Likely Endocarditis with known Bacteremia. 02/08 VS: T 103, P 111, R 16 - 43; BP 139/79, PO 92 2Lnc. Intubated on 02/08, Extubated on 02/11. 02/08 LAB: PT 12.8, INR 1.2; Na 132, K 3.2, Chl 97, BUN 20, Glucose 197, Calcium 7.1, Mag 1.2, Troponin 0.379. 02/08 BNP 10400 02/08 CXR: There is pulmonary edema that could be acute heart failure. 02/11 CXR: Increased pulmonary congestion. 02/12 CXR: Correlate for CHF with developing interstitial pulmonary edema. 02/18 CXR: No obvious heart failure. 02/21 CXR: Cardiomegaly with more prominent central vascular congestion. Persistent bilatera lower lung acute infiltrates and/or atelectasis. 02/09 ECHO: EF 55-60%, Mild pulmonary hypertension, Mild MR, Possible Bicuspid Aortic Valve, Moderate Aortic Regurgitation, Mild Aortic Stenosis, Possible vegetation on the aortic valve leaflet. Mild TR. 02/18 Surgery: Aortic Valve Replacement, Debridement of some annual infected tissue in aortic outflow tract. Treatment 02/08: IV Na Chl 1,000 mls @ 999 mls/hr q1H, IV Rocephin 50 mls @ 100 mls/hr x1, IV Vancomycin 250 mls @ 125 mls/hr x1, IV Tylenol 100 mls @ 400 mls/hr x1, IV Ibuprofen 258 mls @ 500 mls/hr x1, IV Ketamine 50 mg x1, IV Dilaudid 2 mg x1, IV Ativan 2 mg x1. 02/11: IV Lasix 40 mg x1. 02/20: IV Lasix 20 mg q8H 02/22: IV Lasix 40 mg BID 02/26: IV Lasix 40 mg Daily In your professional opinion, can you please clarify the Type & Acuity of CHF if known? [ ] Acute Diastolic Heart Failure [ ] Chronic Diastolic Heart Failure [ ] Acute on Chronic Diastolic Heart Failure [xx ] Other, please specify__from acute AI [ [ Heart Failure is ruled out [ ] Unable to determine (Template Last Revised: August 2020) MTDD
[2022-02-27 16:39] LABS: Glucose,Whole Blood 118 mg/dL (70-110)
[2022-02-27] MEDS ORDERED: WARFARIN 5 MG TAB PO SCH (18:00)
[2022-02-27] MEDS ORDERED: POTASSIUM CHLORIDE ER 20 MEQ TAB.ER PO STA (18:35)
[2022-02-27] MEDS: ONDANSETRON ODT 8 MG TAB.RAPDIS PO SCH (19:58)
[2022-02-27 20:06] LABS: Glucose,Whole Blood 150 mg/dL (70-110)
--- NOTE | 2022-02-27 21:29 | P.PN ---
Subjective Progress Note Date: 02/27/22 Principal diagnosis: Gram-negative bacteremia and aortic valve endocarditis Patient is a 36 year old female presenting to the hospital with acute respiratory failure in this patient to have evidence of gram-negative bacteremia and there was concern for vegetation on the aortic valve , patient did have extension of the infected tooth and colonoscopy as a part of preparation for the aortic valve replacement which was completed 02/18/2022 on today's evaluation that is 02/27/2022, the patient continues to be afebrile,the patient is breathing comfortably on room air, patient denies chest pain shortness of breath or cough, the patient denies abdominal pain and no raúl rrhea, no new symptoms Objective - Vital Signs Vital signs: Vital Signs Temp 98.0 F 02/27/22 04:00 Pulse 76 02/27/22 04:00 Resp 18 02/27/22 04:00 BP 134/79 02/27/22 04:00 Pulse Ox 98 02/27/22 08:26 FiO2 35 02/22/22 04:00 Intake & Output 02/26/22 02/27/22 02/27/22 18:59 06:59 18:59 Intake Total 1850 1780 240 Output Total 2550 2800 800 Balance -700 -1020 -560 Weight 74.9 kg Intake: IV 100 Cefepime 2 gm In Sodium 100 Chloride 0.9% 100 ml @ 25 mls/hr IVPB Q8HR [facility] Rx# :[id number] Intake, IV Titration 100 Amount Cefepime 2 gm In Sodium 100 Chloride 0.9% 100 ml @ 25 mls/hr IVPB Q8HR [facility] Rx# :[id number] Oral 1850 1580 240 Output: Urine 2550 2800 800 Other: Voiding Method Toilet Toilet ABP, PAP, CO, CI - Last Documented Arterial Blood Pressure 137/59 Pulmonary Artery Pressure 26/8 Cardiac Output 6.5 Cardiac Index 3.5 - Exam GENERAL DESCRIPTION: Middle-aged female lying in bed in no distress RESPIRATORY SYSTEM: Unlabored breathing , decreased breath sounds at bases HEART: S1 S2 regular rate and rhythm , ABDOMEN: Soft , no tenderness EXTREMITIES: No edema feet - Labs CBC & Chem 7: 02/27/22 06:40 02/27/22 06:40 Labs: Abnormal Lab Results - Last 24 Hours (Table) 02/26/22 02/26/22 02/27/22 Range/Units 16:19 20:31 06:11 RBC (3.80-5.40) m/uL Hgb (11.4-16.0) gm/dL Hct (34.0-46.0) % RDW (11.5-15.5) % PT (9.0-12.0) sec INR (<1.2) Sodium (137-145) mmol/L BUN (7-17) mg/dL Glucose (74-99) mg/dL POC Glucose (mg/dL) 165 H 157 H 127 H (70-110) mg/dL Calcium (8.4-10.2) mg/dL 02/27/22 02/27/22 02/27/22 Range/Units 06:40 06:40 06:40 RBC 2.73 L (3.80-5.40) m/uL Hgb 7.4 L (11.4-16.0) gm/dL Hct 23.3 L (34.0-46.0) % RDW 21.4 H (11.5-15.5) % PT 17.6 H (9.0-12.0) sec INR 1.7 H (<1.2) Sodium 134 L (137-145) mmol/L BUN 21 H (7-17) mg/dL Glucose 109 H (74-99) mg/dL POC Glucose (mg/dL) (70-110) mg/dL Calcium 7.9 L (8.4-10.2) mg/dL Assessment and Plan (1) Sepsis Current Visit: Yes Status: Acute Code(s): A41.9 - SEPSIS, UNSPECIFIED ORGANISM SNOMED Code(s): 36109755 Plan: 1patient presented to hospital with sepsis in this patient did have a fever tachycardia tachypnea with evidence of vegetation on aortic wall likely secondary to endocarditis, blood culture has been finalized and Serratia from her repeat blood culture had been negative as 2-patient is status post aortic valve replacment surgery on 02/18/2022 , OR culture has been negative so for 2 patient has shown clinical improvement and continue with the cefepime the plan is for total of 6 weeks of treatment, patient is going with her mom and dad supervision for completion of IV antibiotic therapy it has been explained to the patient in the presence of pulmonary team, that she cannot inject anything else besides the antibiotic in her PICC line as experimentation with any other stuff can lead to or other complication patient is fully awake alert oriented 3 and promised not to miss use PICC line Time with Patient: Less than 30
--- NOTE | 2022-02-27 23:18 | P.PN ---
Subjective Progress Note Date: 02/27/22 This is a pleasant 36 year old female who is monitored on step down unit, she is postoperative day #7 for AVR secondary to endocarditis with recent history of bacteremia with Serratia Mercescens at [facility]. Patient with history of colitis and also splenomegaly. Her main complaint today is diarrhea ongoing which she had also experienced postopertively. C.Dif found to be negative. She had a dose of immodium today. Denies dysuria. Denies any shortness of breath, does have some incisional chest discomfort as well as discomfort to chest tube site incisions. Chest xray today showing increasing right lower lobe airspace opacity possibly a developing atelectasis versus pneumonia with similar left lo wer lobe opacity. Incentive spirometer at bedside, encouraged use. Patient states she has not been as ambulatory as she would like and states, PT last evaluated the patient on the . Labs today showing a hemoglobin level of 7.0 which is stable, INR today 1.3. Magnesium level today is 1.3 and patient did receive 3 bags of magnesium as well as calcium gluconate 2 grams. Patient continues on IV lasix twice a day with a urinary output of 2L in the last 24 hours. She remains afebrile, heart rate in the 80s, blood pressure 138/68, 98% room air. 02/26/2022 Patient evaluated today sitting up in chair. She was able to shower today independently. Waiting to ambulate. She did take a dose of immodium yesterday as she was having loose stools. Today her abdomen is distended she is tympanic. States she is passing alot of gas today, no BM yet today. Bladder scan complete, no urinary retention found. She is requesting simethicone which will be added. She is taking tylenol more frequently and states her pain has been better controlled. Also states the zofran she had at bedtime helped. She is using incentive spirometer as recommended. A1C consistent with prediabetes, blood glucose in the 130s. Magnesium today 1.7, which was supplemented. Patient states her urine seems more red than prior, urinalysis was done showing large blood with greater than 182 RBCs also occasional calcium oxalate crystals found. Hemoglobin today 7.3, INR 1.6, continues on coumadin. 02/27/2022 Patient reports no acute events overnight. Patient is postoperative aortic valve, pending discharge possibly today pending outpatient antibiotic arrangements. INR today 1.7, continues on coumadin. Today patient reports feel ing better, states nausea is improving and also simethicone is helping with bloating. She did have a normal bowel movement today, denies dysuria. Reports improvement in incisional chest pain, using tylenol as needed. Patient has been ambulating as recommended. Reaching 1500 on IS and encouraged to use 10 times an hour. Patient has not required subcu insulin as blood sugars have been in the 120s, patient is prediabetic by A1C. Recommending diet modification and sample glucometer has been given to monitor blood sugars outpatient. Review of Systems Constitutional: Denied any fatigue denied any fever. Cardio vascular: denied any chest pain, palpitations. Gastrointestinal: denied any nausea, vomiting. Pulmonary: Denied any shortness of breath cough Neurologic denied any new focal deficits All inpatient medications were reviewed and appropriate changes in these medications as dictated in the interval history and assessment and plan. PHYSICAL EXAMINATION: GENERAL: The patient is alert and oriented x3, not in any acute distress. Well developed, well nourished. HEENT: Pupils are round and equally reacting to light. EOMI. No scleral icterus. No conjunctival pallor. Normocephalic, atraumatic. No pharyngeal erythema. No thyromegaly. CARDIOVASCULAR: S1 and S2 present. No murmurs, rubs, or gallops. PULMONARY: Chest is clear to auscultation, no wheezing or crackles. ABDOMEN: Soft, nontender, distended, normoactive bowel sounds. No palpable organomegaly. MUSCULOSKELETAL: No joint swelling or deformity. EXTREMITIES: No cyanosis, clubbing, or pedal edema. NEUROLOGICAL: Gross neurological examination did not reveal any focal deficits. SKIN: No rashes. Post surgical incisions intact. Assessment and plan Assessment Subacute bacterial endocarditis Severe aortic regurgitation secondary to above, status post aortic valve replacement with mechanical valve on 02/18 Sepsis with fever and tachypnea, resolved Acute hypoxic respiratory failure requiring intubation and mechanical ventilation, post extubation and currently on room air. Metabolic encephalopathy, resolved Acute pulmonary edema, could be acute CHF versus RDS, resolved Severe anemia, microcytic hyperchromic requiring blood transfusion 4 Elevated troponin' Hypomagnesemia secondary to poor oral intake History of recent colitis History of splenectomy Recent tooth extraction GI Prophylaxis DVT Prophylaxis: On Coumadin as well as lovenox for prophylaxis Full Code Plan Continue to encourage ambulation, incentive spirometery Transitioned to oral lasix Replace magnesium Multiple consultations including cardiothoracic, cardiology, pulmonary marine fire fighter, hematology, infectious disease PICC line in place, 6 weeks of antibiotic therapy on discharge, antibiotics being arranged outpatient. Possible discharge in the next 24 to 48 hours pending cardiothoracic clearance. The impression and plan of care has been dictated by Jena Duckworth, Nurse Practitioner as directed. Dr. aPola MD I have performed a history and physical examination and medical decision making of this patient, discussed the same with the dictator, and agree with the dictators assessment and plan as written, documented as a scribe. Based on total visit time, I have performed more than 50% of this visit. Objective - Vital Signs Vital signs: Vital Signs Temp 98.5 F 02/27/22 19:53 Pulse 100 02/27/22 19:53 Resp 18 02/27/22 19:53 BP 133/81 02/27/22 19:53 Pulse Ox 95 02/27/22 19:53 FiO2 35 02/22/22 04:00 Intake & Output 02/27/22 02/27/22 02/28/22 06:59 18:59 06:59 Intake Total 1780 1080 540 Output Total 2800 2700 1000 Balance -1020 -1620 -460 Weight 74.9 kg 74.9 kg Intake: IV 100 100 Cefepime 2 gm In Sodium 100 100 Chloride 0.9% 100 ml @ 25 mls/hr IVPB Q8HR [facility] Rx# :[id number] Intake, IV Titration 100 200 Amount Cefepime 2 gm In Sodium 100 Chloride 0.9% 100 ml @ 25 mls/hr IVPB Q8HR [facility] Rx# :[id number] Magnesium Sulfate-D5w Pmx 200 1 gm In Dextrose/Water 1 100ml.bag @ 100 mls/hr IVPB Q1H [facility] Rx#: [id number] Oral 1580 780 540 Output: Urine 2800 2700 1000 Other: Voiding Method Toilet Toilet ABP, PAP, CO, CI - Last Documented Arterial Blood Pressure 137/59 Pulmonary Artery Pressure 26/8 Cardiac Output 6.5 Cardiac Index 3.5 - Labs CBC & Chem 7: 02/27/22 06:40 02/27/22 06:40 Labs: Abnormal Lab Results - Last 24 Hours (Table) 02/27/22 02/27/22 02/27/22 Range/Units 06:11 06:40 06:40 RBC 2.73 L (3.80-5.40) m/uL Hgb 7.4 L (11.4-16.0) gm/dL Hct 23.3 L (34.0-46.0) % RDW 21.4 H (11.5-15.5) % PT (9.0-12.0) sec INR (<1.2) Sodium 134 L (137-145) mmol/L BUN 21 H (7-17) mg/dL Glucose 109 H (74-99) mg/dL POC Glucose (mg/dL) 127 H (70-110) mg/dL Calcium 7.9 L (8.4-10.2) mg/dL 02/27/22 02/27/22 02/27/22 Range/Units 06:40 11:46 16:37 RBC (3.80-5.40) m/uL Hgb (11.4-16.0) gm/dL Hct (34.0-46.0) % RDW (11.5-15.5) % PT 17.6 H (9.0-12.0) sec INR 1.7 H (<1.2) Sodium (137-145) mmol/L BUN (7-17) mg/dL Glucose (74-99) mg/dL POC Glucose (mg/dL) 129 H 118 H (70-110) mg/dL Calcium (8.4-10.2) mg/dL 02/27/22 Range/Units 20:05 RBC (3.80-5.40) m/uL Hgb (11.4-16.0) gm/dL Hct (34.0-46.0) % RDW (11.5-15.5) % PT (9.0-12.0) sec INR (<1.2) Sodium (137-145) mmol/L BUN (7-17) mg/dL Glucose (74-99) mg/dL POC Glucose (mg/dL) 150 H (70-110) mg/dL Calcium (8.4-10.2) mg/dL Assessment and Plan Time with Patient: Less than 30
[2022-02-27 23:36] VITALS: RESP 16
[2022-02-28] MEDS: ACETAMINOPHEN TAB 325 MG TAB PO PRN (03:55)
[2022-02-28 06:02] LABS: INR 1.8 (<1.2); Prothrombin Time 18.3 sec (9.0-12.0)
[2022-02-28 06:06] LABS: African American GFR (CKD) >90 (>60 ml/min/1.73 sqM); Anion Gap 5 mmol/L; Blood Urea Nitrogen 26 mg/dL (7-17); Calcium 7.6 mg/dL (8.4-10.2); Carbon Dioxide 29 mmol/L (22-30); Chloride 103 mmol/L (98-107); Glucose 114 mg/dL (74-99); Magnesium 2.1 mg/dL (1.6-2.3); Non-African American GFR(CKD) >90 (>60 ml/min/1.73 sqM); Potassium 4.3 mmol/L (3.5-5.1); Sodium 137 mmol/L (137-145)
[2022-02-28 06:14] LABS: Glucose,Whole Blood 137 mg/dL (70-110)
[2022-02-28] MEDS: PANTOPRAZOLE 40 MG TABLET PO SCH (06:22)
[2022-02-28] MEDS: INSULIN ASPART (NovoLOG) 100 UNIT/ML VIAL SQ SCH (06:30)
[2022-02-28] MEDS ORDERED: FERROUS SULFATE 325 MG TAB PO SCH (09:00)
[2022-02-28 09:31] VITALS: BMI 24.9
--- NOTE | 2022-02-28 09:55 | P.DS ---
Providers Date of admission: 02/09/22 02:38 Expected date of discharge: 02/28/22 Attending physician: Dinh Riggs Consults: 02/09/22 03:25 Consult Physician Routine Consulting Provider: Evelyn Ernandez Consult Reason/Comments: respFail Do you want consulting provider notified?: Yes 02/09/22 09:41 Consult Physician Stat Consulting Provider: Cyrus Espino Consult Reason/Comments: aortic valve vegetation Do you want consulting provider notified?: Yes 02/09/22 09:45 Consult Physician Urgent Consulting Provider: Fer Dunlap Consult Reason/Comments: bacteremia, endocarditis Do you want consulting provider notified?: Yes 02/09/22 13:42 Consult Physician Urgent Consulting Provider: Gaurav Townsend Consult Reason/Comments: veg on aortic valve finding on WADE Do you want consulting provider notified?: Already Contacted 02/13/22 12:56 Consult Physician Routine Consulting Provider: Lyubov Godinez Consult Reason/Comments: dental clearence valve surgery Do you want consulting provider notified?: Yes 02/15/22 10:06 Consult Physician Urgent Consulting Provider: Kennedy Wilkerson Consult Reason/Comments: tooth extraction with conscious sedation; needs valve surgery Do you want consulting provider notified?: Yes 02/16/22 14:33 Consult Physician Urgent Consulting Provider: Gerald Jenkins Consult Reason/Comments: Leukopenia Do you want consulting provider notified?: Yes 02/17/22 08:00 Consult to Anesthesia Routine Consulting Provider: Anesthesia,Services Consult Reason/Comments: Cardiac Surgery Pre-Op 02/20/22 08:53 Consult Physician Routine Consulting Provider: Felix Miller Consult Reason/Comments: Suspected IV drug abuse Do you want consulting provider notified?: Yes Primary care physician: Meeta Vizcarra [facility] Course: FINAL DIAGNOSIS: 1. 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 Serratia bacteremia, sepsis on cefepime 2 g IV piggyback every 8 hours managed by infectious disease, blood cultures from 02/11/2022 showed no growth after 144 hours, aortic valve Gram stain cultures show no growth after 3 days, anaerobic culture results showed no anaerobes seen 3. Acute hypoxic respiratory failure requiring mechanical ventilation 4. Altered mental status this admission, resolved 5. Acute on chronic anemia 6. Acute kidney injury, resolved 7. Recent history of colitis and splenomegaly likely splenic infarct, status post colonoscopy which showed normal appearing colon from the rectum to the cecum with no evidence of colitis or colorectal aplasia 8. History of anxiety 9. PTSD with history of self mutilation 10. Chronic dental abscess tooth #15, status post surgical extraction of tooth 11. Postoperative acute blood loss anemia, an expected outcome given her preoperative anemia, hemodilution and cardiopulmonary bypass 12. Suspected IV drug abuse per patient's father 13. Diarrhea, expected given her history of preoperative and history of preoperative colitis, resolved 14. Prolonged mechanical ventilator support, secondary to postoperative acute blood loss anemia and thrombocytopenia 15. Right pleural effusion, requiring right-sided chest tube placement PRINCIPAL PROCEDURE: 1. Aortic valve replacement with a 23 mm On-X mechanical aortic valve 2. Patch closure of aortotomy with bovine pericardium 3. Debridement of some annular infected tissue in aortic outflow tract 4. Ligation of the left atrial appendage with a 35 mm Atricure clip HISTORY OF PRESENT ILLNESS: This is a 36-year-old female patient who follows on an outpatient basis with Dr. Meeta Vizcarra for her primary care service. The patient was initially seen at [facility] and diagnosed with Serratia marcescens bacteremia and also anemia with possible GI bleeding. Subsequently she was discharged home from [facility] with oral antibiotics and scheduled to see GI and follow-up as an outpatient. On 02/08/2022 the patient presented to the emergency department here at [facility] in acute pulmonary edema secondary to severe acute aortic insufficiency and altered mental status. The patient had some acute hypoxic respiratory failure at that time requiring intubation with mechanical ventilator support. Preoperatively the patient was able to extubate and was transferred to the cardiac stepdown unit for further monitoring. A transthoracic 2-D echocardiogram was completed which showed an overall left ventricular ejection fraction to be estimated at 55-60%, mild mitral valve regurgitation, possible bicuspid aortic valve with moderate aortic valve regurgitation and mild aortic valve stenosis with a peak gradient of 17 mmHg and a mean gradient of 12 mmHg. It also demonstrated mild tricuspid valve regurgitation and normal pericardium without effusion. For further evaluation a transesophageal echocardiogram was completed which demonstrated evidence of a vegetation on the aortic valve with severe aortic valve regurgitation in a trileaflet aortic valve, possibility of a small ulceration behind the aortic leaflets, moderate multiple jets with mitral valve regurgitation, left ventricular systolic function with borderline normal at 50- 55% and normal appearance of the descending aorta. Due to the patient's anemia and possible GI bleeding she underwent a computed tomography scan of her abdomen/pelvis and a colonoscopy. The CT scan of her abdomen/pelvis demonstrated cardiomegaly with pleural effusions and basilar pulmonary infiltrates and atelectasis, moderately severe hepatosplenomegaly, bilateral enlarged kidneys, no renal obstruction, no bowel obstruction, and no intestinal wall thickening seen to suggest colitis. Her colonoscopy showed normal appearing colon from the rectum to the cecum with no evidence of colitis or colorectal neoplasia. As part of her preoperative workup patient also underwent a CT facial bone which demonstrated no facial bone fracture and periapical lucency cortical irregularity involving the 15th/left upper second molar. Subsequently, due to the findings on the fascial CT Dr. Wilkerson from oral surgery was consulted and the patient underwent a surgical extraction of chronic dental abscess tooth #15. Infectious disease was also consulted due to her positive blood cultures for Serratia marcescens and she was placed on IV antibiotic therapy. Her sepsis improved and her blood cultures were negative. Her initial hemoglobin was 5 and received 4 units of packed red blood cells on admission in the intensive care unit. The patient continued to be anemic and she was seen by hematology, which felt the anemia was due to marrow suppression from severe illness and disease. Due to the patient's presenting symptoms, and findings of vegetation on her aortic valve a consult was placed to Dr. Tomas Camacho from cardiothoracic surgery for further evaluation and treatment recommendations. Dr. Camacho did discussed treatment options with the patient and her family present at her bedside. Risks and benefits of surgery including the STS risk score were discussed with the patient. Dr. Camacho discussed with the patient preoperatively regarding an On-X mechanical valve. The patient is single and does not currently have children and was clear with Dr. Camacho that she not g oing to have children in the future, unless she is adopted. Dr. Camacho did discuss in length with the patient and her family present at her bedside the need for long-term Coumadin therapy with the On-X mechanical valve. Knowing and understanding the risks the patient wished to proceed with the surgical option with receiving an On-X mechanical valve. HOSPITAL COURSE: On 02/18/2022 after obtaining consent the patient was taken to the preoperative area, prepared in the usual fashion and subsequently taken to the operating room where Dr. Tomas Camacho performed an aortic valve replacement with a 23 mm On-X mechanical aortic valve, patch closure of aortotomy with bovine pericardium, debridement of some annular infected tissue in aortic outflow track and ligation of the left atrial appendage with a 35 mm Atricure clip. Upon completion of the surgery the patient was transferred to the cardiovascular intensive care unit where she was recovered and monitored hemodynamically. She did have prolonged mechanical ventilator support, although was subsequently extubated, all lines, tubes and supportive drips were discontinued when appropriate and she was transferred to the cardiac stepdown unit for further monitoring and rehabilitation. Her oxygen was titrated down, she continued to work with physical/occupational therapy, cardiac rehabilitation, she was tolerating an oral diet, her pain was well controlled without narcotics and she was ready to be discharged home on postoperative day #10 with [facility] and [facility] which we will dispense her antibiotic therapy. The patient did receive a PICC line for long- term IV antibiotic therapy managed by infectious disease. The patient has received verbal and written instructions regarding her medications, activity restrictions, signs and symptoms requiring physician notification and her follow-up appointments. Plan - Discharge Summary Discharge Rx Participant: No New Discharge Prescriptions: New Aspirin 81 mg PO DAILY #30 tab Ferrous Sulfate [Iron (65 MG Elemental)] 325 mg PO DAILY #30 tab Furosemide [Lasix] 20 mg PO DAILY #30 tab Atorvastatin [Lipitor] 20 mg PO DAILY #30 tab Cholestyramine (with Sugar) [Questran Packet] 4 gm PO BID@1000,1800 #14 packet Metoprolol Tartrate [Lopressor] 75 mg PO BID #180 tab Cefepime [Maxipime] 2 gm IVPB Q8H 35 Days #105 each Warfarin [Coumadin] 5 mg PO DAILY@1800 #30 tab Pantoprazole [Protonix] 40 mg PO AC-BID #60 tab Acetaminophen Tab [Tylenol] 650 mg PO Q4HR PRN tab PRN Reason: Fever And/ Or Pain Ascorbic Acid [Vitamin C] 500 mg PO DAILY #30 tab Ondansetron Odt [Zofran ODT] 8 mg PO 1900 #30 tab Discontinued Potassium Chloride ER [K-Dur 20] See Taper PO DAILY Discharge Medication List Acetaminophen Tab [Tylenol] 650 mg PO Q4HR PRN tab 02/27/22 [Rx] Ascorbic Acid [Vitamin C] 500 mg PO DAILY #30 tab 02/27/22 [Rx] Aspirin 81 mg PO DAILY #30 tab 02/27/22 [Rx] Atorvastatin [Lipitor] 20 mg PO DAILY #30 tab 02/27/22 [Rx] Cefepime [Maxipime] 2 gm IVPB Q8H 35 Days #105 each 02/27/22 [Rx] Cholestyramine (with Sugar) [Questran Packet] 4 gm PO BID@1000,1800 #14 packet 02/27/22 [Rx] Ferrous Sulfate [Iron (65 MG Elemental)] 325 mg PO DAILY #30 tab 02/27/22 [Rx] Furosemide [Lasix] 20 mg PO DAILY #30 tab 02/27/22 [Rx] Metoprolol Tartrate [Lopressor] 75 mg PO BID #180 tab 02/27/22 [Rx] Ondansetron Odt [Zofran ODT] 8 mg PO 1900 #30 tab 02/27/22 [Rx] Pantoprazole [Protonix] 40 mg PO AC-BID #60 tab 02/27/22 [Rx] Warfarin [Coumadin] 5 mg PO DAILY@1800 #30 tab 02/27/22 [Rx] Follow up Appointment(s)/Referral(s): Tierney Rodrigues NPC [Nurse Practitioner] - 03/07/22 11:15 am Cyrus Espino MD [STAFF PHYSICIAN] - 03/08/22 11:00 am () [facility],Cardiac [NON-STAFF] - 4 Weeks Fernando Fenton MD [REFERRING] - 04/27/22 9:30 am (Dr. Fenton office states once Tamar mckeon has made contact with Dr. Fenton in appointment will be changed to an earlier date. Once she gets established with Dr. Fenton she will be referred to the Coumadin clinic for further management of her Coumadin dosing.) Tomas Camacho MD [STAFF PHYSICIAN] - 03/23/22 10:15 am Maria Eugenia Phipps MD [STAFF PHYSICIAN] - As Needed [facility], [NON-STAFF] - 1 Week Meeta Vizcarra MD [Primary Care Provider] - 03/02/22 4:40 pm Fer Dunlap MD [STAFF PHYSICIAN] - 03/13/22 2:45 pm Evelyn Enrandez MD [STAFF PHYSICIAN] - 03/15/22 2:15 pm Ambulatory/Diagnostic Orders: Basic Metabolic Panel [LAB.AMB] Location: None Selected C Reactive Protein [LAB.AMB] Location: None Selected Complete Blood Count w/diff [LAB.AMB] Time Frame: 03/02/22, Facility: [facility], Location: Laboratory [facility] Comprehensive Metabolic Panel [LAB.AMB] Time Frame: 03/02/22, Facility: [facility], Location: Laboratory [facility] Erythrocyte Sedimentation Rate [LAB.AMB] Location: None Selected Magnesium [LAB.AMB] Time Frame: 03/02/22, Facility: [facility], Location: Laboratory [facility] Prothrombin Time INR [LAB.AMB] Time Frame: 3 Days, Location: None Selected Prothrombin Time INR [LAB.AMB] Time Frame: 03/02/22, Facility: [facility], Location: Laboratory [facility] Activity/Diet/Wound Care/Special Instructions: [facility] will dispense/proved antibiotics ([phone]) [facility] will follow at home. DISCHARGE INSTRUCTIONS: 1. No driving for 4 weeks, or until physician gives their ok. 2. The patient should sleep in their own bed, no medical bed needed. 3. Stairs are not an issue. If the bedroom is upstairs, it is advised that the patient go up at night and down in the morning for the first week. Go slowly, using handrail and take 1 step at a time. 4. DAVI hose are to be worn for 30 days or until physician discontinues. 5. Heart hugger is to be worn 100% of the time until physician discontinues.(except when showering) 6. No lifting, pushing, or pulling more than 10 pounds for 12 weeks. The physician will advise of any restriction changes. 7. The patient is expected to continue the prescribed walking program. 8. Continue pain control per as needed orders. 9. Continue with incentive spirometry and splinting/heart hugger until otherwise directed by the physician. 10. Must shower daily using liquid antibacterial soap and a separate white washcloth for each individual incision. 11. Routine sternal incision care. No powders, lotions, ointments on incisions. No dressings are necessary on incisions unless they are draining. Dermabond tape is to remain on sternal incision until surgeon follow-up. 12. Please call surgeon/MECHANIC FOREMAN for temp greater than 101 F or purulent drainage from incisions. 13. All prescriptions given by surgeon for 30 days. Refills need to be filled through frit mixer/primary care physician. 14. A Red armband has been placed on the patient. It should be worn for 30 days post surgery and will be removed by the cardiac surgeons. If an ER visit is necessary, please make sure the number on the Red armband is called. 15. You have been referred to and are expected to begin Cardiac Rehab in approximately 4-6 weeks. 16. Check PT and INR every Mondays and for Coumadin dosing. Please fax results to [phone] Camacho. Goal INR for the first 3 months is 2-3, after the 3 months goal rate is 1.5-2. Coumadin 5 mg by mouth today and daily until 03/02/2022, recheck PT and INR on , 03/02/2022 and call results for any adjustments in the Coumadin dose. The patient will need to follow in the Coumadin clinic for INR management. The clinic is a walk-in clinic at Dr. Espino's office. 17. Routine PICC line care. HOME HEALTH SERVICES TO PROVIDE: RN SKILLED HOME CARE SERVICES FOR POST-OP SURGICAL PATIENTS WITH THE FOLLOWING: Coronary Artery Bypass Surgery (CABG), Mitral Valve Replacement/Repair ( MVR), Aortic Valve Replacement/Repair (AVR) RN TO CONTINUE EDUCATION FROM ``ROAD TO A HEALTH HEART PATIENT EDUCATION MANUAL (GIVEN TO PATIENT IN THE HOSPITAL) MEDICATION RECONCILIATION WITH EDUCATION NEEDED ON FIRST HOME VISIT EMPHASIZE IMPORTANCE OF WEARING BREAST SUPPORT/HEART HUGGER ENCOURAGE USE OF INCENTIVE SPIROMETER 10 X EVERY HOUR WHILE AWAKE ENCOURAGE UTILIZATION OF LOWER EXTREMITY COMPRESSION STOCKINGS/DAVI HOSE and ELEVATE LEGS ABOVE LEVEL OF HEART WHILE AT REST. ENCOURAGE AMBULATION 3-5x/day INCREASING TOLERATES, WHILE AVOIDING EXTREMES IN TEMPERATURE FREQUENCY: RN TO OPEN THE PATIENT WITHIN 24 HOURS OF DISCHARGE FROM THE HOSPITAL WITH TELEHEALTH INSTALLED AT [facility], RN TO VISIT 2-3 X A WEEK FOR 4 WEEKS ESTABLISHED BY PATIENT NEEDS. LABORATORY: CBC, CMP TO BE DRAWN ON THE THIRD DAY HOME, (RAN STAT) FAX RESULTS TO [phone]. Check PT and INRs every Mondays and for Coumadin dosing. TELEHEALTH PARAMETERS: WEIGHT: NOTIFY MD OF WEIGHT GAIN OF 2 LBS IN 24 HOURS OR 5 LBS IN ONE WEEK HR: NOTIFY MD OF HR <55 BPM OR HR>100 BPM BP: NOTIFY MD IF BP <90/55 OR BP>140/100 O2 SAT: NOTIFY MD IF PO2<93% ON ROOM AIR SEND TELEHEALTH REPORT TO TRAINS SERVICE CONDUCTOR AND CARDIOVASCULAR SURGEON THE FIRST WEEK OF CARE AND THEN BI-WEEKLY. PLEASE ADDITIONALLY COMMUNICATE ANY ABNORMALS AND NEW FINDINGS TO THE SURGEONS OFFICE. For any questions or concerns please call government affairs director Tierney @ or Jv @ Discharge Disposition: HOME WITH HOME HEALTH SERVICES
[2022-02-28 10:22] VITALS: BP 129/75; PULSE 84; TEMP 97.9
--- NOTE | 2022-02-28 14:59 | P.PN ---
Subjective Progress Note Date: 02/28/22 This is a pleasant 36 year old female who is monitored on step down unit, she is postoperative day #7 for AVR secondary to endocarditis with recent history of bacteremia with Serratia Mercescens at [facility]. Patient with history of colitis and also splenomegaly. Her main complaint today is diarrhea ongoing which she had also experienced postopertively. C.Dif found to be negative. She had a dose of immodium today. Denies dysuria. Denies any shortness of breath, does have some incisional chest discomfort as well as discomfort to chest tube site incisions. Chest xray today showing increasing right lower lobe airspace opacity possibly a developing atelectasis versus pneumonia with similar left lo wer lobe opacity. Incentive spirometer at bedside, encouraged use. Patient states she has not been as ambulatory as she would like and states, PT last evaluated the patient on the . Labs today showing a hemoglobin level of 7.0 which is stable, INR today 1.3. Magnesium level today is 1.3 and patient did receive 3 bags of magnesium as well as calcium gluconate 2 grams. Patient continues on IV lasix twice a day with a urinary output of 2L in the last 24 hours. She remains afebrile, heart rate in the 80s, blood pressure 138/68, 98% room air. 02/26/2022 Patient evaluated today sitting up in chair. She was able to shower today independently. Waiting to ambulate. She did take a dose of immodium yesterday as she was having loose stools. Today her abdomen is distended she is tympanic. States she is passing alot of gas today, no BM yet today. Bladder scan complete, no urinary retention found. She is requesting simethicone which will be added. She is taking tylenol more frequently and states her pain has been better controlled. Also states the zofran she had at bedtime helped. She is using incentive spirometer as recommended. A1C consistent with prediabetes, blood glucose in the 130s. Magnesium today 1.7, which was supplemented. Patient states her urine seems more red than prior, urinalysis was done showing large blood with greater than 182 RBCs also occasional calcium oxalate crystals found. Hemoglobin today 7.3, INR 1.6, continues on coumadin. 02/27/2022 Patient reports no acute events overnight. Patient is postoperative aortic valve, pending discharge possibly today pending outpatient antibiotic arrangements. INR today 1.7, continues on coumadin. Today patient reports feel ing better, states nausea is improving and also simethicone is helping with bloating. She did have a normal bowel movement today, denies dysuria. Reports improvement in incisional chest pain, using tylenol as needed. Patient has been ambulating as recommended. Reaching 1500 on IS and encouraged to use 10 times an hour. Patient has not required subcu insulin as blood sugars have been in the 120s, patient is prediabetic by A1C. Recommending diet modification and sample glucometer has been given to monitor blood sugars outpatient. 02/28/2022 Discharge placed on hold yesterday pending outpatient antibiotic coordination with homecare services which is set in place now. Instructed on monitor blood glucose. No acute events overnight. INR today is 1.8 and patient is given scripts and instructions for PT/INR monitoring from cardiothoracic team. Sodium today improved to 137, potassium 4.3, BUN 26, creatinine 0.75, blood glucose 114, calcium 7.6, magnesium 2.1. Patient is afebrile, heart rate 84, blood pressure 129/75 and she is 97% on room air. Review of Systems Constitutional: Denied any fatigue denied any fever. Cardio vascular: denied any chest pain, palpitations. Gastrointestinal: denied any nausea, vomiting. Pulmonary: Denied any shortness of breath cough Neurologic denied any new focal deficits All inpatient medications were reviewed and appropriate changes in these medications as dictated in the interval history and assessment and plan. PHYSICAL EXAMINATION: GENERAL: The patient is alert and oriented x3, not in any acute distress. Well developed, well nourished. HEENT: Pupils are round and equally reacting to light. EOMI. No scleral icterus. No conjunctival pallor. Normocephalic, atraumatic. No pharyngeal erythema. No thyromegaly. CARDIOVASCULAR: S1 and S2 present. No murmurs, rubs, or gallops. PULMONARY: Chest is clear to auscultation, no wheezing or crackles. ABDOMEN: Soft, nontender, distended, normoactive bowel sounds. No palpable organomegaly. MUSCULOSKELETAL: No joint swelling or deformity. EXTREMITIES: No cyanosis, clubbing, or pedal edema. NEUROLOGICAL: Gross neurological examination did not reveal any focal deficits. SKIN: No rashes. Post surgical incisions intact. Assessment and plan Assessment Subacute bacterial endocarditis Severe aortic regurgitation secondary to above, status post aortic valve replacement with mechanical valve on 02/18 Sepsis with fever and tachypnea, resolved Acute hypoxic respiratory failure requiring intubation and mechanical ventilation, post extubation and currently on room air. Metabolic encephalopathy, resolved Acute pulmonary edema, could be acute CHF versus RDS, resolved Severe anemia, microcytic hyperchromic requiring blood transfusion 4 Elevated troponin' Hypomagnesemia secondary to poor oral intake History of recent colitis History of splenectomy Recent tooth extraction GI Prophylaxis DVT Prophylaxis: On Coumadin as well as lovenox for prophylaxis Full Code Plan Continue to encourage ambulation, incentive spirometery Transitioned to oral lasix Multiple consultations including cardiothoracic, cardiology, pulmonary salesperson men's hats, hematology, infectious disease PICC line in place, 6 weeks of antibiotic therapy on discharge, antibiotics being arranged outpatient. Patient will be discharged home today per cardiothoracic team. The impression and plan of care has been dictated by Jena Duckworth, Nurse Practitioner as directed. Dr. Paola MD I have performed a history and physical examination and medical decision making of this patient, discussed the same with the dictator, and agree with the dictators assessment and plan as written, documented as a scribe. Based on total visit time, I have performed more than 50% of this visit. Objective - Vital Signs Vital signs: Vital Signs Temp 97.9 F 02/28/22 08:45 Pulse 84 02/28/22 08:45 Resp 16 02/28/22 04:00 BP 129/75 02/28/22 08:45 Pulse Ox 97 02/28/22 08:45 FiO2 35 02/22/22 04:00 Intake & Output 02/27/22 02/28/22 02/28/22 18:59 06:59 18:59 Intake Total 1080 1720 Output Total 2700 1600 600 Balance -1620 120 -600 Weight 74.9 kg 74.3 kg 74.3 kg Intake: IV 100 100 Cefepime 2 gm In Sodium 100 100 Chloride 0.9% 100 ml @ 25 mls/hr IVPB Q8HR [facility] Rx# :[id number] Intake, IV Titration 200 Amount Magnesium Sulfate-D5w Pmx 200 1 gm In Dextrose/Water 1 100ml.bag @ 100 mls/hr IVPB Q1H [facility] Rx#: [id number] Oral 780 1620 Output: Urine 2700 1600 600 Other: Voiding Method Toilet Toilet ABP, PAP, CO, CI - Last Documented Arterial Blood Pressure 137/59 Pulmonary Artery Pressure 26/8 Cardiac Output 6.5 Cardiac Index 3.5 - Labs CBC & Chem 7: 02/27/22 06:40 02/28/22 05:20 Labs: Abnormal Lab Results - Last 24 Hours (Table) 02/27/22 02/27/22 02/28/22 Range/Units 16:37 20:05 05:20 PT (9.0-12.0) sec INR (<1.2) BUN 26 H (7-17) mg/dL Glucose 114 H (74-99) mg/dL POC Glucose (mg/dL) 118 H 150 H (70-110) mg/dL Calcium 7.6 L (8.4-10.2) mg/dL 02/28/22 02/28/22 Range/Units 05:45 06:12 PT 18.3 H (9.0-12.0) sec INR 1.8 H (<1.2) BUN (7-17) mg/dL Glucose (74-99) mg/dL POC Glucose (mg/dL) 137 H (70-110) mg/dL Calcium (8.4-10.2) mg/dL Assessment and Plan Time with Patient: Less than 30
== END 2022-02-28 09:35 | disposition home health service (06) | DRG 853 ==
LOC: EC 22:22 → 2SICU 02-09 02:38 → 3SCARD 02-15 23:54 → 2SICU 02-18 08:32 → 3SCARD 02-23 17:55
PROVIDERS: ADMIT Hospitalist; ATTEND Hospitalist
PROC: 0BH17EZ Insertion of Endotracheal Airway into Trachea, Via Natural or Artificial Opening (ICD-10-PCS; 2022-02-08)
PROC: 5A1945Z Respiratory Ventilation, 24-96 Consecutive Hours (ICD-10-PCS; 2022-02-08)
PROC: 0DH67UZ Insertion of Feeding Device into Stomach, Via Natural or Artificial Opening (ICD-10-PCS; 2022-02-09)
PROC: 3E0G76Z Introduction of Nutritional Substance into Upper GI, Via Natural or Artificial Opening (ICD-10-PCS; 2022-02-09)
PROC: B24BZZ4 Ultrasonography of Heart with Aorta, Transesophageal (ICD-10-PCS; 2022-02-09)
PROC: 30233N1 Transfusion of Nonautologous Red Blood Cells into Peripheral Vein, Percutaneous Approach (ICD-10-PCS; 2022-02-09)
PROC: 0DJD8ZZ Inspection of Lower Intestinal Tract, Via Natural or Artificial Opening Endoscopic (ICD-10-PCS; 2022-02-15)
PROC: 0CDWXZ0 Extraction of Upper Tooth, Single, External Approach (ICD-10-PCS; 2022-02-15)
PROC: 30233K1 Transfusion of Nonautologous Frozen Plasma into Peripheral Vein, Percutaneous Approach (ICD-10-PCS; 2022-02-18)
PROC: 30233R1 Transfusion of Nonautologous Platelets into Peripheral Vein, Percutaneous Approach (ICD-10-PCS; 2022-02-18)
PROC: 5A1945Z Respiratory Ventilation, 24-96 Consecutive Hours (ICD-10-PCS; 2022-02-18)
PROC: 0BH17EZ Insertion of Endotracheal Airway into Trachea, Via Natural or Artificial Opening (ICD-10-PCS; 2022-02-18)
PROC: 30283B1 Transfusion of Nonautologous 4-Factor Prothrombin Complex Concentrate into Vein, Percutaneous Approach (ICD-10-PCS; 2022-02-18)
PROC: 02UA08Z Supplement Heart with Zooplastic Tissue, Open Approach (ICD-10-PCS; principal; 2022-02-18 08:00)
PROC: 02RF0JZ Replacement of Aortic Valve with Synthetic Substitute, Open Approach (ICD-10-PCS; principal; 2022-02-18 08:00)
PROC: 02L70CK Occlusion of Left Atrial Appendage with Extraluminal Device, Open Approach (ICD-10-PCS; principal; 2022-02-18 08:00)
PROC: 0W9930Z Drainage of Right Pleural Cavity with Drainage Device, Percutaneous Approach (ICD-10-PCS; 2022-02-19)
PROC: 02HV33Z Insertion of Infusion Device into Superior Vena Cava, Percutaneous Approach (ICD-10-PCS; 2022-02-22)
DX: A41.53 Sepsis due to Serratia (principal); G93.41 Metabolic encephalopathy; I33.0 Acute and subacute infective endocarditis; J96.01 Acute respiratory failure with hypoxia; D61.818 Other pancytopenia; D62 Acute posthemorrhagic anemia; I42.0 Dilated cardiomyopathy; I50.1 Left ventricular failure, unspecified; J94.2 Hemothorax; J98.11 Atelectasis; N17.9 Acute kidney failure, unspecified; J90 Pleural effusion, not elsewhere classified; D73.5 Infarction of spleen; D50.9 Iron deficiency anemia, unspecified; R16.2 Hepatomegaly with splenomegaly, not elsewhere classified; E73.9 Lactose intolerance, unspecified; M54.9 Dorsalgia, unspecified; E83.42 Hypomagnesemia; E87.6 Hypokalemia; F43.10 Post-traumatic stress disorder, unspecified; I08.0 Rheumatic disorders of both mitral and aortic valves; K04.7 Periapical abscess without sinus; K52.9 Noninfective gastroenteritis and colitis, unspecified; R31.9 Hematuria, unspecified; K76.9 Liver disease, unspecified; R73.03 Prediabetes; S02.5XXA Fracture of tooth (traumatic), initial encounter for closed fracture; Z53.20 Procedure and treatment not carried out because of patient's decision for unspecified reasons; Z79.899 Other long term (current) drug therapy; Z86.19 Personal history of other infectious and parasitic diseases; Z91.52 Personal history of nonsuicidal self-harm; Z20.822 Contact with and (suspected) exposure to COVID-19; Z71.3 Dietary counseling and surveillance; Z81.8 Family history of other mental and behavioral disorders; Z71.51 Drug abuse counseling and surveillance of drug abuser
CPT/HCPCS: 36415; 36430; 36573; 36600; 45378; 70450; 70486; 71045; 71046; 72125; 74176; 80048; 80051; 80053; 80061; 80074; 80306; 81001; 81025; 82306; 82330; 82607; 82652; 82728; 82746; 82784; 82805; 83010; 83036; 83540; 83550; 83605; 83615; 83735; 83880; 83883; 83921; 84100; 84132; 84145; 84165; 84443; 84484; 84550; 84703; 85025; 85027; 85045; 85379; 85384; 85610; 85652; 85730; 86038; 86039; 86140; 86334; 86431; 86850; 86891; 86900; 86901; 86920; 87040; 87070; 87075; 87077; 87086; 87186; 87205; 87324; 87635; 88305; 88311; 88312; 93005; 93306; 93312; 93320; 93325; 93880; 94002; 94003; 94150; 94640; 94760; 96361; 96365; 96366; 96368; 96375; 96376; 99291

== ENCOUNTER → 2022-05-08 | Outpatient (CLI) | payer OTHER ==
--- NOTE | 2022-05-08 16:18 | XR ---
EXAMINATION TYPE: XR chest 2V DATE OF EXAM: 05/08/2022 3:10 PM COMPARISON: Chest radiographs from 04/05/2022. TECHNIQUE: XR chest 2V Frontal and lateral views of the chest. CLINICAL INDICATION:Female, 37 years old with history of R06.02 SHORTNESS OF BREATH; FINDINGS: Lungs/Pleura: No pneumothorax. Increased small right loculated pleural effusion. Resolution of left p leural effusion. No focal consolidation. Pulmonary vascularity: Unremarkable. Heart/mediastinum: Cardiomediastinal silhouette is unremarkable. Postsurgical changes with left atri al appendage clip and aortic valve replacement. Musculoskeletal: No acute osseous pathology. Midline sternotomy wires are noted and stable. IMPRESSION: Increased partially loculated small right pleural effusion with resolution of left pleural effusion.
== END | disposition home or self-care (01) ==
LOC: RADXRMAIN 14:55
PROVIDERS: ATTEND Thoracic Surgery (Cardiothoracic Vascular Surgery)
DX: R06.02 Shortness of breath (principal)
CPT/HCPCS: 71046